=== PATIENT | female | born 1965 | race Caucasian/White ===

== ENCOUNTER 2018-07-30 02:00 | Outpatient (CLI) | payer MEDICARE, MEDICAID, SELFPAY ==
[2018-07-30 13:19] LABS: Anion Gap 3.4 mmol/L (3-11); BUN 12 mg/dL (7-18); CO2 34.6 mmol/L (21.0-32.0); CREATININE 0.63 mg/dL (0.55-1.02); Calcium 8.8 mg/dL (8.5-10.1); Chloride 99 mmol/L (98-107); Glucose 59 mg/dL (70-100); Potassium 4.7 mmol/L (3.5-5.1); Sodium 137 mmol/L (136-145); TSH 1.16 uIU/mL (0.358-3.74)
== END 2018-07-30 02:20 ==
PROVIDERS: PCP Emergency Medicine; Visit Provider Emergency Medicine
DX: I10 Essential (primary) hypertension (principal)
CPT/HCPCS: 36415; 80048; 84443

== ENCOUNTER → 2018-09-02 11:06 | Outpatient (BNVA) | payer MEDICARE, MEDICAID, SELFPAY | PROVIDERS: PCP Emergency Medicine; Visit Provider Psychiatry & Neurology Neurology | DX: G35 Multiple sclerosis (principal); R55 Syncope and collapse; M79.602 Pain in left arm; I10 Essential (primary) hypertension | CPT/HCPCS: 99214; 93005; 93010 ==

== ENCOUNTER → 2018-09-24 10:04 | Outpatient (BNVA) | payer MEDICARE, MEDICAID, SELFPAY | PROVIDERS: PCP Emergency Medicine; Visit Provider Psychiatry & Neurology Neurology | DX: R69 Illness, unspecified (principal) | CPT/HCPCS: 99213 ==

== ENCOUNTER → 2018-09-24 11:23 | Outpatient (BNVA) | payer MEDICARE, MEDICAID, SELFPAY | PROVIDERS: PCP Emergency Medicine; Visit Provider Nurse Practitioner Gerontology | DX: G35 Multiple sclerosis (principal); G56.02 Carpal tunnel syndrome, left upper limb; I10 Essential (primary) hypertension; N39.41 Urge incontinence | CPT/HCPCS: 95908; 99213 ==

== ENCOUNTER → 2018-09-26 12:50 | Outpatient (BNVA) | payer MEDICARE, MEDICAID, SELFPAY | PROVIDERS: PCP Emergency Medicine; Referring Provider Emergency Medicine; Visit Provider Orthopaedic Surgery | DX: R69 Illness, unspecified (principal) ==

== ENCOUNTER → 2018-10-01 09:44 | Outpatient (BNVA) | payer MEDICARE, MEDICAID, SELFPAY | PROVIDERS: PCP Emergency Medicine; Referring Provider Emergency Medicine; Visit Provider Orthopaedic Surgery | DX: G56.02 Carpal tunnel syndrome, left upper limb (principal) | CPT/HCPCS: 99211; 99213 ==

== ENCOUNTER 2018-10-29 13:01 | Outpatient (CLI) | payer MEDICARE, MEDICAID, SELFPAY | END 2018-10-29 13:21 | PROVIDERS: PCP Emergency Medicine; Visit Provider Urology | DX: N31.9 Neuromuscular dysfunction of bladder, unspecified (principal); G35 Multiple sclerosis | CPT/HCPCS: 99213 ==

== ENCOUNTER → 2019-03-25 10:13 | Outpatient (BNVA) | payer MEDICARE, MEDICAID, SELFPAY | PROVIDERS: PCP Emergency Medicine; Visit Provider Psychiatry & Neurology Neurology | DX: G35 Multiple sclerosis (principal); N31.9 Neuromuscular dysfunction of bladder, unspecified; R41.3 Other amnesia | CPT/HCPCS: 99214 ==

== ENCOUNTER → 2019-05-28 13:21 | Outpatient (BNVA) | payer MEDICARE, SELFPAY | PROVIDERS: PCP Emergency Medicine; Visit Provider Psychiatry & Neurology Neurology | DX: G35 Multiple sclerosis (principal); N31.9 Neuromuscular dysfunction of bladder, unspecified; R41.3 Other amnesia; I10 Essential (primary) hypertension | CPT/HCPCS: 99214 ==

== ENCOUNTER 2019-08-15 14:08 | Outpatient (CLI) | payer MEDICARE, SELFPAY ==
[2019-08-15 15:43] LABS: Anion Gap 9.7 mmol/L (3-11); BUN 13 mg/dL (7-18); CO2 30.3 mmol/L (21.0-32.0); CREATININE 0.54 mg/dL (0.55-1.02); Calcium 9.1 mg/dL (8.5-10.1); Chloride 96 mmol/L (98-107); Glucose 88 mg/dL (70-100); Potassium 3.9 mmol/L (3.5-5.1); Sodium 136 mmol/L (136-145)
== END 2019-08-15 14:28 ==
PROVIDERS: PCP Emergency Medicine; Visit Provider Urology
DX: N31.9 Neuromuscular dysfunction of bladder, unspecified (principal)
CPT/HCPCS: 36415; 80048

== ENCOUNTER → 2019-10-24 09:25 | Outpatient (BNVA) | payer MEDICARE, MEDICAID, SELFPAY | PROVIDERS: PCP Emergency Medicine; Referring Provider Emergency Medicine; Visit Provider Urology | DX: R35.1 Nocturia (principal) | CPT/HCPCS: 99213 ==

== ENCOUNTER 2019-11-18 15:18 | Outpatient (REF) | payer MEDICARE, SELFPAY ==
--- NOTE | 2019-11-18 14:50 | PAPFT_PTH ---
PATIENT: Mina Coker LOC: [facility] U#:[id number] AGE/SX: 54/F ROOM: RE11/18/[address]: Gabo Goncalves DO : 1965 BED: DIS: 11/18/2019 SPEC #: [id number] RECD: 11/19/19 12:53 STATUS: ALFIE REWilda #: [id number] CINDY: 11/18/19 14:[address]: Gabo Goncalves DEPT: [facility] Cytology RECD BY: Malina Badillo Tissues: 1 - CX/ENDOCX FOR PAP SMEARS Procedures: PAP THIN PREP/UVM Screening Comments: [id number] (CHLAMYDIA/GC)
[2019-11-20 14:13] LABS: Chlamydia Result Negative (Negative); GC Result Negative (Negative)
== END 2019-11-18 15:38 ==
LOC: LBN 15:18
PROVIDERS: PCP Emergency Medicine; Visit Provider Emergency Medicine
DX: Z11.3 Encounter for screening for infections with a predominantly sexual mode of transmission (principal); Z12.4 Encounter for screening for malignant neoplasm of cervix
CPT/HCPCS: 87491; 87591; 88142

== ENCOUNTER → 2019-11-25 10:41 | Outpatient (BNVA) | payer MEDICARE, SELFPAY | PROVIDERS: PCP Emergency Medicine; Referring Provider Emergency Medicine; Visit Provider Psychiatry & Neurology Neurology | DX: R69 Illness, unspecified (principal) | CPT/HCPCS: 99214 ==

== ENCOUNTER 2019-11-25 11:38 | Outpatient (CLI) | payer MEDICARE, SELFPAY ==
[2019-11-25 12:46] LABS: Anion Gap 4.4 mmol/L (3-11); BUN 12 mg/dL (7-18); CO2 35.6 mmol/L (21.0-32.0); CREATININE 0.57 mg/dL (0.55-1.02); Chloride 100 mmol/L (98-107); Glucose 95 mg/dL (74-106); Potassium 4.2 mmol/L (3.5-5.1); Sodium 140 mmol/L (136-145)
[2019-11-25 13:03] LABS: Calculated LDL 118 mg/dL; Cholesterol 206 mg/dL (<200); HDL Cholesterol 58 mg/dL (40-60); Triglyceride 153 mg/dL (<150)
[2019-11-25 13:15] LABS: Vitamin B12 976 pg/mL (193-986)
== END 2019-11-25 11:58 ==
PROVIDERS: Psychiatry & Neurology Neurology; PCP Emergency Medicine; Visit Provider Urology
DX: G35 Multiple sclerosis (principal); R53.83 Other fatigue; R41.3 Other amnesia; N31.9 Neuromuscular dysfunction of bladder, unspecified; R35.1 Nocturia
CPT/HCPCS: 36415; 80048; 80061; 99214; 82607

== ENCOUNTER 2019-12-15 11:54 | Outpatient (CLI) | payer MEDICARE, SELFPAY ==
--- NOTE | 2019-12-15 11:26 | DI.RAD_ITS ---
EXAM: XR ANKLE RT COMPLETE INDICATION: eval R ankle/subtalar swelling, deformity. COMPARISON: No exams were available for comparison TECHNIQUE: 2D digital imaging was performed. FINDINGS: The ankle appears intact. There is a flatfoot deformity. The anterior talus and calcaneus are not w ell evaluated on this examination. There is question of deformity and possible fracture involving th jannie bones. A CT scan of the hindfoot is recommended for further evaluation. There is soft tissue sw elling about the hindfoot and ankle. No radiopaque foreign bodies are present.
== END 2019-12-15 12:14 ==
PROVIDERS: PCP Emergency Medicine; Referring Provider Emergency Medicine; Visit Provider Student in an Organized Health Care Education/Training Program
DX: M25.571 Pain in right ankle and joints of right foot (principal); M79.671 Pain in right foot; M21.41 Flat foot [pes planus] (acquired), right foot; M79.89 Other specified soft tissue disorders; M25.474 Effusion, right foot; I10 Essential (primary) hypertension
CPT/HCPCS: 20605; 99213; L4361; 73610; J1040

== ENCOUNTER 2019-12-16 01:59 | Outpatient (CLI) | payer MEDICARE, SELFPAY ==
--- NOTE | 2019-12-16 11:59 | DI.MAMMO_ITS ---
EXAM: MG MAMMO SCREENING CLINICAL HISTORY: screening Z12.39. TECHNIQUE: Bilateral full field digital CC and MLO mammographic images were obtained with 3D tomosyn thesis and utilizing computer aided detection (CAD). COMPARISON: Available for comparison. FINDINGS: Masses/Architectural Distortion: None seen. Microcalcifications: No suspicious pleomorphic-type are seen. Skin Thickening/Nipple Retraction: None. IMPRESSION: 1. No significant interval change with no specific features of malignancy noted. 2. Unless there is more urgent need, screening mammography is recommended, as per [employer] guidelines. ACR BI-RAD Category- 1 Negative Breast Density - Category C - Heterogeneously dense The mammogram demonstrates the patient's breast tissue is dense. Dense breast tissue is very common a nd is not abnormal but dense breast tissue can make it harder to find cancer on a mammogram. Also, de nse breast tissue may increase their breast cancer risk. This information about the result of the [facility] mogram report was provided to the patient to raise their awareness. Use this report when you speak wi th the patient about their risks for breast cancer, which includes their family history. At that time , you may recommend for more screening tests (Ultrasound or MRI) as they might be useful based on the ir risk. A negative radiographic report should not delay biopsy if a dominant or clinically suspicious mass is present. Up to ten percent of cancers are not identified on mammography. A negative report may reinforce clinical impression. Adenosis and dense breasts may obscure an underlying neoplasm. False positive reports average 6 to 10%. Patient will receive a letter notifying them of these results.
== END 2019-12-16 02:19 ==
PROVIDERS: PCP Emergency Medicine; Visit Provider Emergency Medicine
DX: Z12.31 Encounter for screening mammogram for malignant neoplasm of breast (principal)
CPT/HCPCS: 77063; 77067

== ENCOUNTER → 2020-01-02 10:34 | Outpatient (BNVA) | payer MEDICARE, SELFPAY | PROVIDERS: PCP Emergency Medicine; Referring Provider Emergency Medicine; Visit Provider Physical Therapy Assistant | DX: Z12.11 Encounter for screening for malignant neoplasm of colon (principal) ==

== ENCOUNTER 2020-01-19 11:53 | Day surgery (SDC) | payer MEDICARE, SELFPAY ==
--- NOTE | 2020-01-19 06:58 | W.COLOREPORT ---
Date of service: 01/19/20 Time of Service: 13:39 Colonoscopy Report Date of procedure: 01/19/20 Pre-op diagnosis general: Colon Cancer Screening Post-op diagnosis procedure note: same Procedure: Colonoscopy Surgeon: Debbie Guerra Anesthesia proc note operative: other (General/ ASA 2/Penny Booker, HECTOR) Estimated blood loss (mL): 0 Pathology: none sent Complications: None Disposition: same day Indications: 54 y/o female with history of multiple sclerosis, HTN and asthma presents for her first colonoscopy screening pre-op. She denies a family history of colon cancer. She denies any changes in bowel habits stating she has frequent constipation. Denies bloody or black tarry stools, abdominal pain, diarrhea. She denies constitutional symptoms.She uses marijuana daily to help control her spasticity. Risks, benefits and complications have been reviewed. Complications include but are not limited to bleeding, pain, perforation, missed small lesion/polyp, sore throat, aspiration and adverse reaction to the medications. Questions were entertained and answered to their satisfaction and they wished to proceed. No guarantees were given or implied. Prep: Miralax/Dulcolax Procedure Start Time: 13:39 Procedure End Time: 14:03 Retraction Time: 10 minutes Findings: Tortuous colon. No polyps or diverticula Procedure Description: After informed consent was obtained the patient was taken to the procedure room and placed in a left decubitous position. Monitors were applied and a time out was done. The patients name, date of , procedure, allergies to medications and metal in their body was reviewed. The patient was then sedated. Once sedated and comfortable a rectal exam was done. External exam was normal. Internal exam revealed a normal sphincter tone and no palpable masses. The scope was then introduced and retro-flexed. No internal hemorrhoids, Masses or polyps were identified on retro-flexion. The scope was then advanced to the cecum with some difficulty. The colon was tortuous. The TI and appendiceal orifice were identified. The prep was adequate. The scope was then slowly retracted over 10 minutes back into the rectum. There were no polyps and no diverticula. The scope was removed and the patient was woken up and taken back to Same day surgery in stable condition. The patient tolerated the procedure well and there were no immediate complications. Follow up: The patient should follow up in 10 years unless they develop changes in bowel habits or other new gastrointestinal complaints.
--- NOTE | 2020-01-19 07:00 | W.PM.DSUDISC ---
Discharge Plan Disposition Patient Disposition: HOME Condition: Good Discharge Details Reason For Visit: SCREENING Attending Provider: Debbie Guerra Primary Care Provider: Gabo Goncalves Home Meds and New Rx's Prescriptions: Continued triamcinolone acetonide [Nasacort] 55 mcg aerosol,spray 1 spray JAMEL BID RF: 0 melatonin 3 mg tablet 6 mg PO HS RF: 0 turmeric root extract 500 mg capsule 500 mg PO DAILY RF: 0 citalopram 20 mg tablet 20 mg PO DAILY Qty: 90 RF: 4 desmopressin 0.2 mg tablet 0.6 mg PO HS Qty: 270 RF: 3 diphenhydramine-acetaminophen [Tylenol PM Extra Strength] 1 EACH tablet 1 tab PO HS RF: 0 Timoptic Ocudose (PF) 1 EACH dropperette 1 drp Ophthalmic DAILY RF: 0 B Complex Plus Vitamin C 1 EACH capsule 1 cap PO DAILY RF: 0 Probiotic and Acidophilus 1 EACH capsule 1 cap PO DAILY RF: 0 pedi multivit 17-iron fumarate 1 EACH tablet,chewable 2 tab PO DAILY RF: 0 calcium carbonate-vitamin D3 1 EACH tablet 1 ea PO DAILY RF: 0 glucosamine sulf-chondroitinSA 1 EACH capsule 1 ea PO BID RF: 0 cholecalciferol (vitamin D3) 5,000 UNIT tablet 5,000 unit PO DAILY RF: 0 baclofen 20 mg tablet 40 mg PO TID Qty: 540 RF: 3 amlodipine 5 mg tablet 5 mg PO BID Qty: 180 RF: 3 omeprazole 20 mg capsule,delayed release(DR/EC) 20 mg PO DAILY Qty: 90 RF: 3 lisinopril 20 mg tablet 20 mg PO DAILY Qty: 90 RF: 3 modafinil [Provigil] 200 mg tablet 200 mg PO BID RF: 0 dalfampridine [Ampyra] 10 mg tablet extended release 12 hr 10 mg PO BID RF: 0 Discontinued polyethylene glycol 3350 17 gram/dose powder 238 g PO ONCE Qty: 238 RF: 0 bisacodyl [Dulcolax (bisacodyl)] 5 mg tablet,delayed release (DR/EC) 5 mg PO ONCE Qty: 4 RF: 0 Discharge Instructions Additional Instructions: Findings: Normal colon Follow up: 10 years Please call if you develop: fevers >101.5 Nausea or Vomiting Abdominal pain that is not transient DAY SURGERY UNIT POST ENDOSCOPY INSTRUCTIONS 1. Because there will be medication in your system for the next 24 hours, you may feel a little sleepy. Your coordination will be affected. Therefore: a. Do not drive or operate dangerous equipment for 24 hours. b. Do not drink alcohol beverages for 24 hours (not even beer). c. Plan to go home and rest for the day. 2. Generally there are no restrictions on your activity after a day or so has gone by, but you may feel a bit fatigued for a few days. 3 After you arrive home you may have a light meal and return to a normal diet as you can tolerate it without feeling sick to your stomach. 4. After surgery, you may feel pain or discomfort. This should be only transient, but if it persists please contact your doctor. 5. If there are any questions regarding the findings of your procedure, please feel free to contact your doctor. 6. If you are unable to contact your doctor with a problem, contact the hospital at [phone]. 7. Continue all your regular medications unless directed otherwise. I understand the above instructions and have no questions. Signature of Patient or Responsible Adult Escort Date/Time Name of Responsible Adult Escort Signature of Nurse Date/Time Activity:: Activity as Tolerated Diet:: As Tolerated Discharge Orders Discharge Orders: Discharge Order (Routine); Ordered 01/19/20 Ordered By: Debbie Guerra
[2020-01-19 12:27] VITALS: BP 154/89; PULSE 75; RESP 16; TEMP 36.6; O2SAT 97
[2020-01-19] MEDS: Lactated Ringers 1,000 ML 80 ML IV (12:59)
[2020-01-19] MEDS: Ondansetron 4 MG/2 ML VIAL IVP (14:32)
[2020-01-19 14:51] VITALS: BP 126/74; PULSE 76; RESP 16; TEMP 36.9; O2SAT 95
== END 2020-01-19 15:15 | disposition home or self-care (01) ==
LOC: SUR 11:53
PROVIDERS: PCP Emergency Medicine; Visit Provider Surgery
PROC: 0DJD8ZZ Inspection of Lower Intestinal Tract, Via Natural or Artificial Opening Endoscopic (ICD-10-PCS; CPT 45378; principal; 2020-01-19 13:15)
DX: Z12.11 Encounter for screening for malignant neoplasm of colon (principal); K63.89 Other specified diseases of intestine; I10 Essential (primary) hypertension
CPT/HCPCS: G0121; 81025; J2405; J2704

== ENCOUNTER → 2020-01-26 10:10 | Outpatient (BNVA) | payer MEDICARE, SELFPAY | PROVIDERS: PCP Emergency Medicine; Referring Provider Emergency Medicine; Visit Provider Student in an Organized Health Care Education/Training Program | DX: M79.89 Other specified soft tissue disorders (principal); M25.571 Pain in right ankle and joints of right foot; M21.41 Flat foot [pes planus] (acquired), right foot | CPT/HCPCS: 99212 ==

== ENCOUNTER → 2020-04-23 09:32 | Outpatient (BNVA) | payer MEDICARE, SELFPAY | PROVIDERS: PCP Emergency Medicine; Referring Provider Emergency Medicine; Visit Provider Urology | DX: R35.1 Nocturia (principal); N31.9 Neuromuscular dysfunction of bladder, unspecified | CPT/HCPCS: 99213 ==

== ENCOUNTER 2020-04-23 18:09 | Emergency (ER) | payer MEDICARE, SELFPAY ==
[2020-04-23 18:13] VITALS: BP 134/98; PULSE 84; RESP 16; TEMP 36.5; O2SAT 98
--- NOTE | 2020-04-23 18:15 | DI.RAD_ITS ---
EXAM: XR FOOT RT COMPLETE CLINICAL HISTORY: pain and swelling. TECHNIQUE: 2D digital imaging was performed. COMPARISON: CR RIGHT ANKLE COMPLETE from 07/31/2017 CR XR ANKLE RT COMPLETE from 12/15/2019 FINDINGS: BONES: No acute fracture is present. No bony destructive lesion is seen. There is chronic deformity of the talus. JOINTS: No dislocation present. SOFT TISSUE: There is soft tissue swelling over the dorsum of the foot. IMPRESSION: Soft tissue swelling. No acute fracture.. DATA REPOSITORY: RADIATION DOSE DELIVERED:
--- NOTE | 2020-04-23 18:20 | W.ED.GENAD ---
Discharge Plan Disposition Patient Disposition: HOME Condition: Stable Discharge Details Chief Complaint: Orthopedic Clinical Impression: Right foot strain Primary Care Provider: Gabo Goncalves ED Provider: Partha Pollock Home Meds and New Rx's Prescriptions: Continued triamcinolone acetonide [Nasacort] 55 mcg aerosol,spray 1 spray JAMEL BID RF: 0 melatonin 3 mg tablet 6 mg PO HS RF: 0 turmeric root extract 500 mg capsule 500 mg PO DAILY RF: 0 citalopram 20 mg tablet 20 mg PO DAILY Qty: 90 RF: 4 desmopressin 0.2 mg tablet 0.6 mg PO HS Qty: 270 RF: 3 diphenhydramine-acetaminophen [Tylenol PM Extra Strength] 1 EACH tablet 1 tab PO HS RF: 0 Timoptic Ocudose (PF) 1 EACH dropperette 1 drp Ophthalmic DAILY RF: 0 B Complex Plus Vitamin C 1 EACH capsule 1 cap PO DAILY RF: 0 Probiotic and Acidophilus 1 EACH capsule 1 cap PO DAILY RF: 0 pedi multivit 17-iron fumarate 1 EACH tablet,chewable 2 tab PO DAILY RF: 0 calcium carbonate-vitamin D3 1 EACH tablet 1 ea PO DAILY RF: 0 glucosamine sulf-chondroitinSA 1 EACH capsule 1 ea PO BID RF: 0 cholecalciferol (vitamin D3) 5,000 UNIT tablet 5,000 unit PO DAILY RF: 0 amlodipine 5 mg tablet 5 mg PO BID Qty: 180 RF: 3 omeprazole 20 mg capsule,delayed release(DR/EC) 20 mg PO DAILY Qty: 90 RF: 3 lisinopril 20 mg tablet 20 mg PO DAILY Qty: 90 RF: 3 modafinil [Provigil] 200 mg tablet 200 mg PO BID Qty: 180 RF: 3 baclofen 20 mg tablet 40 mg PO TID Qty: 540 RF: 3 dalfampridine [Ampyra] 10 mg tablet extended release 12 hr 10 mg PO BID RF: 0 Discharge Instructions Additional Instructions: you can take ibuprofen and tylenol every 6 hours for pain as needed if pain continues in a week follow up with your primary care provider return to the emergency department if you have severe worsening pain or if your leg becomes swollen Medical Decision Making 54 yo female with hx of MS who was doing PT in the pool today and afterwards had right foot pain, doesn't remember injuring it or falling it. Denies leg swelling, calf pain. Has pain with some bruising to the dorsal surface of the right mid foot. Normal senation and can move all toes fully and full rom of the ankle with no calf tenderness. Suspect strain vs sprain of foot but could be stress fx, will obtain xray. No findings to suggest dvt or achilles tendon injury xray negative suspect strain, will d/c and have her fu with pcp. She still has mild bruising no erythema or crepitus Differential Diagnosis Differential Diagnosis: sprain, stress fracture, contusion Imaging Data Radiologic Study: Attestation: I personally reviewed and interpreted this imaging study as follows: Imaging: X-Ray Radiologist's impression: IMPRESSION: 1. Right foot soft tissue swelling. 2. No acute fracture or dislocation. HPI General Mode of arrival: wheelchair. Date/Time Provider Initiated Documentation: 04/23/20 18:09. Limitations to Documentation: no limitations. Information obtained by: patient. History of Present Illness 54 year old F presents to the emergency department with the chief complaint of right foot pain, described as moderate, and it has been constant. Rest improves symptom(s), Movement worsens symptoms . Patient notes no other symptoms.. Patient did receive the following treatments prior to arrival, none Related Data Home Medications Medication Instructions Recorded Confirmed B Complex Plus Vitamin C 1 cap PO DAILY 02/04/13 04/23/20 Probiotic and Acidophilus 1 cap PO DAILY 02/04/13 04/23/20 Timoptic Ocudose (PF) 1 drp OPHTHALMIC DAILY drp 02/04/13 04/23/20 diphenhydramine-acetaminophen 1 tab PO HS 02/04/13 04/23/20 [Tylenol PM Extra Strength] pedi multivit 17-iron fumarate 2 tab PO DAILY tab.chew 02/04/13 04/23/20 calcium carbonate-vitamin D3 1 ea PO DAILY 01/26/15 04/23/20 cholecalciferol (vitamin D3) 5,000 unit PO DAILY 01/26/15 04/23/20 glucosamine sulf-chondroitinSA 1 ea PO BID 01/26/15 04/23/20 triamcinolone acetonide 55 mcg 1 spray JAMEL BID ml 07/22/18 04/23/20 nasal spray aerosol melatonin 3 mg tablet 6 mg PO HS tab 03/25/19 04/23/20 turmeric root extract 500 mg 500 mg PO DAILY 05/07/19 04/23/20 capsule amlodipine 5 mg tablet 5 mg PO BID #180 tab 10/21/19 04/23/20 desmopressin 0.2 mg tablet 0.6 mg PO HS #270 tab 10/24/19 04/23/20 omeprazole 20 mg capsule,delayed 20 mg PO DAILY #90 cap 11/04/19 04/23/20 release citalopram 20 mg tablet 20 mg PO DAILY #90 tab 11/18/19 01/26/20 lisinopril 20 mg tablet 20 mg PO DAILY #90 tab 12/23/19 04/23/20 dalfampridine [Ampyra] 10 mg PO BID 01/19/20 04/23/20 modafinil 200 mg tablet 200 mg PO BID #180 tab 03/17/20 04/23/20 baclofen 20 mg tablet 40 mg PO TID #540 tab 04/06/20 04/23/20 Previous Rx's Medication Instructions Recorded amlodipine 5 mg tablet 5 mg PO BID #180 tab 10/21/19 desmopressin 0.2 mg tablet 0.6 mg PO HS #270 tab 10/24/19 omeprazole 20 mg capsule,delayed 20 mg PO DAILY #90 cap 11/04/19 release citalopram 20 mg tablet 20 mg PO DAILY #90 tab 11/18/19 lisinopril 20 mg tablet 20 mg PO DAILY #90 tab 12/23/19 modafinil 200 mg tablet 200 mg PO BID #180 tab 03/17/20 baclofen 20 mg tablet 40 mg PO TID #540 tab 04/06/20 Allergies Allergy/AdvReac Type Severity Reaction Status Date / Time Sulfa (Sulfonamide Allergy Intermediate SKIN RASH Verified 04/23/20 18:18 Antibiotics) Penicillins Allergy Unknown RASH Verified 04/23/20 18:18 codeine AdvReac Unknown NAUSEA Verified 04/23/20 18:18 General Stated Complaint: Orthopedic LAI: 4 Review of Systems All systems reviewed & are unremarkable except as noted in HPI and below Constitutional Constitutional: Denies chills, Denies fever(s) and Denies weakness Cardiovascular Cardiovascular: Denies chest pain and Denies dyspnea Respiratory Respiratory: Denies cough and Denies dyspnea Gastrointestinal Gastrointestinal: Denies abdominal pain, Denies nausea and Denies vomiting Integumentary/Breasts Skin/Breast: Denies rash Neurologic Neurologic: Denies weakness PFSH Social History Smoking/Tobacco Use Status: Former Tobacco Use Quit Date: 11/12/07 Second Hand Exposure: Yes Alcohol Intake: current Alcohol Intake frequency: a few times a month Alcohol type: wine Drug use: Daily Substance use type: marijuana Caregiver/Support person: No Household members: spouse Housing: house Number of Children: 1 Communication Needs: None Do you need help understanding health information?: Never 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; 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 Pets and animals: Yes Pets and animals: cat(s) Do you think of yourself as: straight/heterosexual Current gender identity: female What is your relationship status?: How often do you talk on the phone with friends or family?: never How often do you get together with friends or relatives?: decline to answer Do you belong to any clubs or organized social groups?: no Panel score (0-1 are the most socially isolated patients): 1 What type of physical activity do you participate in: other Details: stationary bike Duration: 15-30 minutes/day Frequency: 3-4 times per week Veda/Hinduism: None Special veda needs: No Seatbelt use: always Helmet use: Yes Helmet use: sometimes Drive intox or ride w/intox school bus driver/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 assistant: No Do you feel safe at home: Yes Do you feel safe in your relationship?: Yes Exam Const General: no acute distress Orientation: alert HENCT Head: normal to inspection Ears: external ears normal General nose exam: external nose normal Mouth: moist mucous membranes Eyes General: appearance normal, both eyes and all related structures Neck Neck: normal visual inspection Resp Effort & Inspection: normal respiratory effort and able to speak in complete sentences Cardio Rate: regular rate Skin General skin exam: no rashes or lesions noted Neuro General: patient alert and patient oriented x3 Extrem General: capillary refill normal Psych Mental Status: mental status grossly normal Course Vital Signs Vital signs: Vital Signs Temperature 36.5 C 04/23/20 18:13 Pulse 84 04/23/20 18:13 Respiratory Rate 16 04/23/20 18:13 Blood Pressure 134/98 H 04/23/20 18:13 Pulse Oximetry 98 04/23/20 18:13 Temperature 36.5 C 04/23/20 18:13 Temperature Source Tympanic 04/23/20 18:13 Pulse 84 04/23/20 18:13 Respiratory Rate 16 04/23/20 18:13 Respiratory Effort Non-Labored 04/23/20 18:15 Blood Pressure 134/98 H 04/23/20 18:13 Blood Pressure Position Sitting 04/23/20 18:13 Pulse Oximetry 98 04/23/20 18:13 Oxygen Delivery Method Room Air 04/23/20 18:13 Oxygen Flow Rate 0 04/23/20 18:13 Pain Level 7 04/23/20 18:13
--- NOTE | 2020-04-23 18:59 | DI.VRAD_ITS ---
PROCEDURE INFORMATION: Exam: XR Right Foot Complete Exam date and time: 04/23/2020 6:31 PM Age: 54 years old Clinical indication: Other: Pain swelling dorsal foot TECHNIQUE: Imaging protocol: XR Right foot. Views: 3 or more views. COMPARISON: CR XR ANKLE RT COMPLETE 12/15/2019 11:26 AM FINDINGS: Bones/joints: The alignment of the joints is anatomic and the joint spaces are maintained. There is no evidence of acute fracture. There is no periosteal reaction or bony destructive lesion to suggest osteomyelitis at this time. Soft tissues: No radiopaque foreign bodies are identified. There is soft tissue swelling along the dorsum of the foot. IMPRESSION: 1. Right foot soft tissue swelling. 2. No acute fracture or dislocation. Dictated and Authenticated by: Kaushal Bonds MD. Ordering:JOSE ALFREDO Chavis MD
== END 2020-04-23 19:15 | disposition home or self-care (01) ==
PROVIDERS: Emergency Provider Emergency Medicine; PCP Emergency Medicine
DX: S96.811A Strain of other specified muscles and tendons at ankle and foot level, right foot, initial encounter (principal); W50.0XXA Accidental hit or strike by another person, initial encounter; G35 Multiple sclerosis; R35.1 Nocturia; N31.9 Neuromuscular dysfunction of bladder, unspecified
CPT/HCPCS: 99213; 99283; 73630

== ENCOUNTER → 2020-05-17 13:11 | Outpatient (BNVA) | payer MEDICARE, SELFPAY | PROVIDERS: PCP Emergency Medicine; Referring Provider Emergency Medicine; Visit Provider Student in an Organized Health Care Education/Training Program | DX: S96.911A Strain of unspecified muscle and tendon at ankle and foot level, right foot, initial encounter (principal); X58.XXXA Exposure to other specified factors, initial encounter; G35 Multiple sclerosis; M21.41 Flat foot [pes planus] (acquired), right foot; I10 Essential (primary) hypertension | CPT/HCPCS: 99213 ==

== ENCOUNTER → 2020-05-25 10:43 | Outpatient (BNVA) | payer MEDICARE, SELFPAY | PROVIDERS: PCP Emergency Medicine; Referring Provider Emergency Medicine; Visit Provider Psychiatry & Neurology Neurology | DX: G35 Multiple sclerosis (principal); N31.9 Neuromuscular dysfunction of bladder, unspecified; R41.3 Other amnesia; R25.2 Cramp and spasm; R53.83 Other fatigue | CPT/HCPCS: 99214 ==

== ENCOUNTER 2020-07-28 12:58 | Outpatient (REF) | payer MEDICARE, MEDICAID, SELFPAY ==
[2020-07-28 13:53] LABS: Anion Gap 5.5 mmol/L (3-11); BUN 14 mg/dL (7-18); CO2 32.5 mmol/L (21.0-32.0); CREATININE 0.55 mg/dL (0.55-1.02); Chloride 89 mmol/L (98-107); Glucose 90 mg/dL (74-106); Potassium 3.7 mmol/L (3.5-5.1); Sodium 127 mmol/L (136-145)
== END 2020-07-28 13:18 ==
LOC: LBN 12:58
PROVIDERS: PCP Emergency Medicine; Visit Provider Emergency Medicine
DX: I10 Essential (primary) hypertension (principal)
CPT/HCPCS: 80048

== ENCOUNTER 2020-08-04 03:16 | Outpatient (CLI) | payer MEDICARE, SELFPAY ==
[2020-08-04 12:58] LABS: Anion Gap 4.6 mmol/L (3-11); BUN 17 mg/dL (7-18); CO2 32.4 mmol/L (21.0-32.0); CREATININE 0.58 mg/dL (0.55-1.02); Chloride 98 mmol/L (98-107); Glucose 79 mg/dL (74-106); Potassium 4.2 mmol/L (3.5-5.1); Sodium 135 mmol/L (136-145)
== END 2020-08-04 03:36 ==
PROVIDERS: PCP Emergency Medicine; Visit Provider Emergency Medicine
DX: I10 Essential (primary) hypertension (principal)
CPT/HCPCS: 36415; 80048

== ENCOUNTER 2020-09-10 01:49 | Outpatient (CLI) | payer MEDICARE, SELFPAY ==
[2020-09-10 13:03] LABS: ALT 24 U/L (14-59); AST 19 U/L (15-37); Albumin 4.6 g/dL (3.4-5.0); Alkaline Phosphatase 83 U/L (46-116); BUN 16 mg/dL (7-18); Bilirubin, Total 0.3 mg/dL (0.2-1.0); Calcium 9.4 mg/dL (8.5-10.1); Chloride 93 mmol/L (98-107); Glucose 92 mg/dL (74-106); Potassium 4.9 mmol/L (3.5-5.1); Sodium 131 mmol/L (136-145); Total Protein 7.3 g/dL (6.4-8.2)
== END 2020-09-10 02:09 ==
PROVIDERS: Urology; PCP Emergency Medicine; Visit Provider Emergency Medicine
DX: R35.1 Nocturia (principal); N31.9 Neuromuscular dysfunction of bladder, unspecified
CPT/HCPCS: 36415; 80048; 80053

== ENCOUNTER 2020-09-14 03:57 | Outpatient (CLI) | payer MEDICARE, SELFPAY ==
[2020-09-14 10:46] LABS: Anion Gap 2.5 mmol/L (3-11); BUN 17 mg/dL (7-18); CO2 32.5 mmol/L (21.0-32.0); CREATININE 0.56 mg/dL (0.55-1.02); Calcium 9.3 mg/dL (8.5-10.1); Chloride 97 mmol/L (98-107); Glucose 83 mg/dL (74-106); Sodium 132 mmol/L (136-145)
== END 2020-09-14 04:17 ==
PROVIDERS: PCP Emergency Medicine; Visit Provider Urology
DX: I10 Essential (primary) hypertension (principal)
CPT/HCPCS: 36415; 80048

== ENCOUNTER 2020-09-29 01:39 | Outpatient (CLI) | payer MEDICARE, SELFPAY ==
[2020-09-29 10:57] LABS: Anion Gap 9.9 mmol/L (3-11); BUN 13 mg/dL (7-18); CO2 30.1 mmol/L (21.0-32.0); Calcium 9.5 mg/dL (8.5-10.1); Chloride 93 mmol/L (98-107); Glucose 79 mg/dL (74-106); Potassium 4.8 mmol/L (3.5-5.1); Sodium 133 mmol/L (136-145)
== END 2020-09-29 01:59 ==
PROVIDERS: PCP Emergency Medicine; Visit Provider Emergency Medicine
DX: I10 Essential (primary) hypertension (principal)
CPT/HCPCS: 36415; 80048

== ENCOUNTER → 2020-10-19 09:31 | Outpatient (BNVA) | payer MEDICARE, SELFPAY | PROVIDERS: PCP Emergency Medicine; Referring Provider Emergency Medicine; Visit Provider Nurse Practitioner Gerontology | DX: R35.1 Nocturia (principal); N31.9 Neuromuscular dysfunction of bladder, unspecified; E87.1 Hypo-osmolality and hyponatremia | CPT/HCPCS: 99213 ==

== ENCOUNTER 2020-10-19 10:16 | Outpatient (REF) | payer MEDICARE, MEDICAID, SELFPAY ==
[2020-10-19 10:43] LABS: Anion Gap 6.8 mmol/L (3-11); BUN 18 mg/dL (7-18); CO2 28.2 mmol/L (21.0-32.0); CREATININE 0.56 mg/dL (0.55-1.02); Calcium 8.9 mg/dL (8.5-10.1); Chloride 97 mmol/L (98-107); Glucose 98 mg/dL (74-106); Potassium 4.1 mmol/L (3.5-5.1); Sodium 132 mmol/L (136-145)
== END 2020-10-19 10:36 ==
LOC: LBN 10:16
PROVIDERS: PCP Emergency Medicine; Visit Provider Nurse Practitioner Gerontology
DX: E87.1 Hypo-osmolality and hyponatremia (principal)
CPT/HCPCS: 80048

== ENCOUNTER 2020-10-25 03:38 | Outpatient (CLI) | payer MEDICARE, SELFPAY ==
[2020-10-25 12:32] LABS: Anion Gap 5.6 mmol/L (3-11); BUN 17 mg/dL (7-18); CO2 33.4 mmol/L (21.0-32.0); CREATININE 0.64 mg/dL (0.55-1.02); Calcium 9.2 mg/dL (8.5-10.1); Chloride 98 mmol/L (98-107); Glucose 77 mg/dL (74-106); Potassium 5.2 mmol/L (3.5-5.1); Sodium 137 mmol/L (136-145)
== END 2020-10-25 03:58 ==
PROVIDERS: PCP Emergency Medicine; Visit Provider Emergency Medicine
DX: I10 Essential (primary) hypertension (principal)
CPT/HCPCS: 36415; 80048

== ENCOUNTER → 2020-11-23 07:56 | Outpatient (BNVA) | payer MEDICARE, SELFPAY | PROVIDERS: PCP Emergency Medicine; Referring Provider Emergency Medicine; Visit Provider Psychiatry & Neurology Neurology | DX: G35 Multiple sclerosis (principal); N31.9 Neuromuscular dysfunction of bladder, unspecified; R25.2 Cramp and spasm; R53.83 Other fatigue; R41.3 Other amnesia | CPT/HCPCS: 99443 ==

== ENCOUNTER 2020-12-03 19:38 | Outpatient (REF) | payer MEDICARE, SELFPAY ==
[2020-12-03 20:44] LABS: Anion Gap 9.4 mmol/L (3-11); BUN 14 mg/dL (7-18); CO2 28.6 mmol/L (21.0-32.0); CREATININE 0.54 mg/dL (0.55-1.02); Chloride 98 mmol/L (98-107); Glucose 89 mg/dL (74-106); Potassium 3.9 mmol/L (3.5-5.1); Sodium 136 mmol/L (136-145)
== END 2020-12-03 19:58 ==
LOC: LBN 19:38
PROVIDERS: PCP Emergency Medicine; Visit Provider Emergency Medicine
DX: I10 Essential (primary) hypertension (principal)
CPT/HCPCS: 80048

== ENCOUNTER → 2021-02-28 09:22 | Outpatient (BNVA) | payer MEDICARE, SELFPAY | PROVIDERS: PCP Emergency Medicine; Referring Provider Emergency Medicine; Visit Provider Psychiatry & Neurology Neurology | DX: G35 Multiple sclerosis (principal); N31.9 Neuromuscular dysfunction of bladder, unspecified; R53.83 Other fatigue; R41.3 Other amnesia; R25.2 Cramp and spasm | CPT/HCPCS: 99214 ==

== ENCOUNTER 2021-03-22 02:15 | Outpatient (CLI) | payer MEDICARE, SELFPAY ==
--- NOTE | 2021-03-22 15:35 | DI.MRI_ITS ---
Exam(s) MR LOWER EXTREMITY RT WO EXAM: MR LOWER EXTREMITY RT WO CLINICAL HISTORY: pain, acquired pes planus of rt foot, M21.41 TECHNIQUE: Multiplanar multisequence MRI was performed. COMPARISON: No exams were available for comparison FINDINGS: SKIN/SUBCUTANEOUS TISSUES: There is no evidence of distinct skin ulcer nor subcutaneous tract. Some generalized soft tissue swe lling is noted. MARROW: Some bone edema is noted in the lateral malleolus without an obvious fracture nor evidence o f obvious osteomyelitis. There is also bone edema evident in the talus and calcaneus which appears to be related to advanced d egenerative changes in the subtalar joint as there are also multiple degenerative subarticular cysts. No abnormal signal evident in the cuboid bone nor in the cuneiform is nor in the visualized metatarsa ls. ARTICULATIONS: There is a large ankle joint effusion.. There also appears to be a sinus tarsi ganglion cyst measuri ng approximately 2 x 2 cm. There is significant pes planus. Advanced degenerative changes in the subtalar joint are noted as we ll as significant degenerative change in the talonavicular joint with some medial subluxation of the talar head. Degenerative cysts are noted in the distal talus and edema in the superior half of the n avicular bone. There are mild degenerative changes in the calcaneocuboid joint. LIGAMENTS: Visualized main Lisfranc ligament appears intact. The anterior talofibular ligament is po beth[place] visualized and therefore probably chronic torn although somewhat difficult to evaluate accuratel y with this field of view. Posterior talofibular ligament appears mostly intact. On the opposite-me dial aspect of the ankle no evidence of tear of the deltoid ligament. Also abnormal signal calcaneal fibular ligament probable chronic tearing. TENDONS: Achilles tendon appears intact.Although there is pes planus, the posterior tibial tendon ivy s not appear torn although there is an element of tenosynovitis. Flexor digitorum is also intact as is the flexor hallucis longus although there is prominent tenosynovitis of the flexor hallucis longus noted. On the lateral aspect of the ankle there are no tears of the peroneus brevis. There appears to be an element of split tearing of the peroneus longus approximately behind the lower fibula. No tear of this structure more distally nor on the undersurface of the foot. IMPRESSION: 1. Pes planus deformity with element of midfoot collapse and advanced degenerative changes in the sub talar joint as well as well as other joints as described above. 2. Large ankle joint effusion. There also appears to be sinus tarsi ganglion cyst measuring approxim ately 2 x 2 cm. 3. Multilevel tenosynovitis as described above but without distinct tendon tears. 4. Multilevel bone edema as described above which is most probably related to degenerative change an altered biomechanics. No evidence of obvious skin ulcer nor subcutaneous tract nor intraosseous sig nal typical of osteomyelitis. 5. Nonvisualization of the anterior talofibular ligament consistent with chronic tear of this struct ure. DATA REPOSITORY:
--- NOTE | 2021-03-22 18:57 | DI.VRAD_ITS ---
PROCEDURE INFORMATION: Exam: MR Right Lower Extremity Other Than Joint Without Contrast; Foot Exam date and time: 03/22/2021 3:39 PM Age: 55 years old Clinical indication: Patient HX: Pain, acquired pes planus of right foot; Additional info: Include medial malleolus proximally TECHNIQUE: Imaging protocol: MR of the Right lower extremity without contrast. Exam focused on the foot. COMPARISON: CR XR FOOT RT COMPLETE 04/23/2020 6:31 PM FINDINGS: There is severe pes planus deformity with midfoot collapse. 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 There is severe osteoarthritis of the talonavicular joint with moderate joint subluxation. There is mild osteoarthritis of the calcaneocuboid joint. A large ankle joint effusion is present. There is edema and/or hemorrhage within the subcutaneous tissues of the ankle and foot. Cellulitis is not excluded. There is bone marrow edema signal within the distal femur lateral condyle possibly secondary to acute injury. No displaced fracture is identified. The medial, lateral and anterior ankle tendons are intact. There is a probable chronic rupture of the anterior talofibular ligament. There is a chronic sprain of the calcaneofibular ligament. IMPRESSION: 1. Severe pes planus deformity with midfoot collapse and severe arthrosis within the hindfoot and midfoot. 2. Large ankle joint effusion. 3. Edema within the distal fibula, indeterminate. 4. Edema signal within the subcutaneous tissues of the ankle and foot. Cellulitis is not excluded. 5. 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 6. Chronic sprain of the calcaneofibular ligament. Dictated and Authenticated by: Daniel Judge MD. Ordering:ОЛЬГА Ruiz MD
== END 2021-03-22 02:35 ==
PROVIDERS: PCP Emergency Medicine; Visit Provider Student in an Organized Health Care Education/Training Program
DX: M25.571 Pain in right ankle and joints of right foot (principal); M21.41 Flat foot [pes planus] (acquired), right foot; M79.671 Pain in right foot; M25.471 Effusion, right ankle; M25.871 Other specified joint disorders, right ankle and foot; M65.871 Other synovitis and tenosynovitis, right ankle and foot
CPT/HCPCS: 73718

== ENCOUNTER 2021-04-15 02:40 | Outpatient (CLI) | payer MEDICARE, SELFPAY ==
[2021-04-15 09:30] LABS: INR 1.1 (0.9-1.1)
[2021-04-15 10:18] LABS: Anion Gap 8.7 mmol/L (3-11); BUN 16 mg/dL (7-18); CO2 28.3 mmol/L (21.0-32.0); CREATININE 0.6 mg/dL (0.55-1.02); Calcium 8.9 mg/dL (8.5-10.1); Chloride 102 mmol/L (98-107); Glucose 112 mg/dL (74-106); Potassium 3.9 mmol/L (3.5-5.1); Sodium 139 mmol/L (136-145)
== END 2021-04-15 02:41 | disposition home or self-care (01) ==
LOC: LBO 02:40
PROVIDERS: PCP Emergency Medicine; Visit Provider Nurse Practitioner Gerontology
DX: R55 Syncope and collapse (principal); R35.1 Nocturia; N39.41 Urge incontinence; N31.9 Neuromuscular dysfunction of bladder, unspecified
CPT/HCPCS: 36415; 80048; 85610

== ENCOUNTER → 2021-04-18 10:22 | Outpatient (BNVA) | payer MEDICARE, SELFPAY | PROVIDERS: PCP Emergency Medicine; Referring Provider Emergency Medicine; Visit Provider Nurse Practitioner Gerontology | DX: R35.1 Nocturia (principal); N31.9 Neuromuscular dysfunction of bladder, unspecified | CPT/HCPCS: 99214 ==

== ENCOUNTER → 2021-08-08 09:10 | Outpatient (BNVA) | payer MEDICARE, SELFPAY | PROVIDERS: PCP Emergency Medicine; Visit Provider Psychiatry & Neurology Neurology | DX: M21.41 Flat foot [pes planus] (acquired), right foot (principal); G35 Multiple sclerosis; M54.5 Low back pain; N31.9 Neuromuscular dysfunction of bladder, unspecified; R53.83 Other fatigue; R41.3 Other amnesia | CPT/HCPCS: 99214 ==

== ENCOUNTER 2021-08-25 01:52 | Outpatient (CLI) | payer MEDICARE, SELFPAY ==
--- NOTE | 2021-08-25 14:45 | DI.MRI_ITS ---
Exam(s) MR LUMBAR SPINE WO EXAM: MR LUMBAR SPINE WO CLINICAL HISTORY: low back pain with bilateral radicular symptoms,ms,m54.5. TECHNIQUE: Multiplanar multisequence MRI was performed. COMPARISON: No exams were available for comparison FINDINGS: MR examination of the lumbosacral spine was performed according to the usual protocol. There are mild Meghan discal vertebral signal changes multiple levels consistent with discogenic change s. There are prominent changes of facet hypertrophy throughout the lumbar region. There is minimal loss of height anteriorly of the L1 vertebral body consistent with a minimal chronic anterior fabian chanel fracture. The conus medullaris appears intact. No significant findings at T11-T12. Mild disc bulge at T12-L1 with no evidence disc herniation, central canal spinal stenosis, or neural foraminal stenosis. No significant findings at the L1-2 level. No evidence of central canal spinal stenosis, neural fora hermelinda stenosis, or disc herniation. At L2-3, there is a prominent disc bulge with an apparent annular disc tear. There may be a mild sup erimposed left-sided disc herniation. There is narrowing of the neural foramen on the left and there is narrowing of the left lateral recess. There is borderline central canal spinal stenosis. At L3-4, there is moderate disc bulge without evidence of a focal disc herniation. There is right-si ded neural foraminal narrowing. Left neural foramen appears intact. There is mild central canal spi nal stenosis. At L4-5, there is probable L4 spondylolysis with associated spondylolisthesis of L4 on L5 with anteri or displacement of L4 by about 15 percent of the vertebral width relative to L5. There is bilateral neural foraminal narrowing. There is a disc bulge. There is severe central canal spinal stenosis. There are prominent hypertrophic changes involving facets at this level as well. At L5-S1, there is normal appearing disc contour. No evidence of neural foraminal stenosis or centra l canal spinal stenosis. IMPRESSION: Multilevel central canal spinal stenosis as described above with severe central canal spinal stenosis at L4-5 associated with apparent spondylolysis at this level. Multilevel neural foraminal narrowing also noted. Please see above discussion for findings at individual levels. DATA REPOSITORY:
== END 2021-08-25 02:12 ==
PROVIDERS: PCP Emergency Medicine; Visit Provider Psychiatry & Neurology Neurology
DX: M54.16 Radiculopathy, lumbar region (principal); M54.59 Other low back pain; M48.061 Spinal stenosis, lumbar region without neurogenic claudication; M43.06 Spondylolysis, lumbar region; G35 Multiple sclerosis
CPT/HCPCS: 72148

== ENCOUNTER 2021-10-13 02:35 | Outpatient (CLI) | payer MEDICARE, SELFPAY ==
[2021-10-13 15:17] LABS: Anion Gap 6.2 mmol/L (3-11); BUN 16 mg/dL (7-18); CO2 30.8 mmol/L (21.0-32.0); CREATININE 0.5 mg/dL (0.55-1.02); Calcium 9.1 mg/dL (8.5-10.1); Chloride 101 mmol/L (98-107); Glucose 97 mg/dL (74-106); Potassium 4.1 mmol/L (3.5-5.1); Sodium 138 mmol/L (136-145)
== END 2021-10-13 02:36 | disposition home or self-care (01) ==
LOC: LBO 02:36
PROVIDERS: PCP Emergency Medicine; Visit Provider Nurse Practitioner Gerontology
DX: R35.1 Nocturia (principal)
CPT/HCPCS: 36415; 80048

== ENCOUNTER → 2021-10-18 10:26 | Outpatient (BNVA) | payer MEDICARE, SELFPAY | PROVIDERS: PCP Emergency Medicine; Referring Provider Emergency Medicine; Visit Provider Nurse Practitioner Gerontology | DX: N31.9 Neuromuscular dysfunction of bladder, unspecified (principal); R35.1 Nocturia; Z79.899 Other long term (current) drug therapy | CPT/HCPCS: 99214 ==

== ENCOUNTER → 2021-10-24 12:12 | Outpatient (BNVA) | payer MEDICARE, SELFPAY | PROVIDERS: PCP Emergency Medicine; Visit Provider Psychiatry & Neurology Neurology | DX: G35 Multiple sclerosis (principal); M21.41 Flat foot [pes planus] (acquired), right foot; N31.9 Neuromuscular dysfunction of bladder, unspecified; R53.83 Other fatigue; R41.3 Other amnesia; R25.2 Cramp and spasm; K59.00 Constipation, unspecified; K59.2 Neurogenic bowel, not elsewhere classified | CPT/HCPCS: 99214 ==

== ENCOUNTER 2021-11-17 12:43 | Outpatient (CLI) | payer MEDICARE, SELFPAY ==
--- NOTE | 2021-11-17 06:00 | DI.RAD_ITS ---
Exam(s) XR PAIN CLINIC LUMBAR SP 2V EXAM: XR PAIN CLINIC LUMBAR SP 2V CLINICAL HISTORY: DX: Lumbar Radiculopathy TECHNIQUE: 2D and realtime digital imaging was performed. CONTRAST MATERIAL: Refer to procedure report. COMPARISON: No exams were available for comparison FINDINGS: Fluoroscopy was provided for Dr. Mon during the performance of a epidural steroid injection. Plemarj e refer to the procedure report for complete details. Ka,r=3.46 mGy IMPRESSION:
[2021-11-17 13:05] VITALS: BP 110/66; PULSE 58; RESP 18; TEMP 36.4; O2SAT 97
[2021-11-17] MEDS: methylPREDNISolone ACETATE 80 MG/ML VIAL IJ (13:27)
[2021-11-17] MEDS: Omnipaque 240 MG/ML 50 ML BTL IJ (13:27)
--- NOTE | 2021-11-17 13:27 | PDOC.PAIN_ITS ---
Pain Clinic Procedure Note Procedure Note Procedure Note: Lumbar Epidural Steroid Injection Procedure Note COMMENTS: I previously evaluated the patient on 10/12/21. DX: Lumbosacral radiculopathy Pre-procedure pain VAS: 10 Mina Coker has been referred to the [facility] for lumbar epidural steroid injection. The patient was greeted by the nurse who verified patients name and . Patient was then taken to the fluoroscopy suite. The patient was interviewed and the medial record reviewed. There were no medical, pharmacologic, radiographic, or other structural contraindications to attempting fluoroscopically guided lumbar epidural steroid injection. Risks and expected side effects as well as potential benefits of the procedure were reviewed and voiced concerns expressed. The patient consent form was signed and witnessed. Standard patient time-out procedure was performed. The patient was placed in the prone position on the fluoroscopy table and automated blood pressure cuff and pulse oximeter applied. The skin entry point for entering/approaching the epidural space at L5-S1 and marked. Following thorough chlorhexadine preparation of the skin and draping and 1% lidocaine infiltration of the skin entry point and subcutaneous tissues, a 18 gauge Touhy needle was placed under fluoroscopic guidance and with loss of resistance technique into the epidural space. Needle tip placement and depth were aided and confirmed by fluoroscopy. There was no paresthesia or return of blood or CSF through the needle. 1 cc's of Omnipaque 240 was injected with clear epidural spread confirmed with fluoroscopy. 80mg depomedrol was injected. There was not any unusual discomfort expressed by Mina Coker. Patient's vital signs were stable throughout the procedure and were as recorded in nursing records. Follow up plans and appointments were discussed with patient. Post procedure instruction was given as documented in nursing records and having met discharge criteria and was discharged from the [facility]. COMMENTS: If this procedure is helpful, it can be completed up to 3 times per 12 months. Post-procedure pain VAS: 11/21 Alex Mon DO, M[facility]
[2021-11-17 13:32] VITALS: BP 140/67; PULSE 68; RESP 18; O2SAT 99
== END 2021-11-17 12:44 | disposition home or self-care (01) ==
LOC: PC 12:44
PROVIDERS: PCP Emergency Medicine; Visit Provider Preventive Medicine Occupational Medicine
DX: M54.16 Radiculopathy, lumbar region (principal)
CPT/HCPCS: 62323; 72100; J1040; Q9967

== ENCOUNTER 2021-12-14 09:50 | Outpatient (CLI) | payer MEDICARE, SELFPAY ==
--- NOTE | 2021-12-14 09:02 | DI.RAD_ITS ---
Exam(s) XR LUMBAR SPINE COMP W FLEX/EX EXAM: XR LUMBAR SPINE COMP W FLEX/EX CLINICAL HISTORY: Measure translation - if any, lumbosacral radiculopathy, spinal stenosis. TECHNIQUE: 2D digital imaging was performed. COMPARISON: MR MRI - THORACIC SPINE W/WO CONT from 11/09/2010 CT ABD PELVIS WITH CONTRAST from 01/13/2011 CT UPPER ABD WITH CONTRAST (P) from 01/24/2011 CT PELVIC/LOWER ABD WITHOUT CONT from 09/14/2012 MR MR LUMBAR SPINE WO from 08/25/2021 FINDINGS: There is a transitional type vertebral body at the lumbosacral junction. There is partial sacralizat ion of the left L5 transverse process. There is severe narrowing of the right side of the L4-5 disc space and moderate narrowing of the right side of the L3-4 disc space creating moderate levoscoliosis . There are sclerotic changes in the endplates at these levels. There is a stable mild L1 compressi on fracture. There are prominent facet degenerative changes at L4-5 causing L4-5 spondylolisthesis. Flexion and extension lateral views were performed in addition to the routine neutral view there is no evidence of subluxation. IMPRESSION: degenerative disc changes and facet degenerative changes greatest at L4-5. No evidence of subluxatio n with flexion or extension. DATA REPOSITORY: RADIATION DOSE DELIVERED:
== END 2021-12-14 10:10 ==
PROVIDERS: PCP Emergency Medicine; Visit Provider Preventive Medicine Occupational Medicine
DX: M48.061 Spinal stenosis, lumbar region without neurogenic claudication (principal); M51.16 Intervertebral disc disorders with radiculopathy, lumbar region; M47.26 Other spondylosis with radiculopathy, lumbar region; M43.16 Spondylolisthesis, lumbar region
CPT/HCPCS: 72114

== ENCOUNTER 2022-02-01 01:05 | Outpatient (CLI) | payer MEDICARE, SELFPAY ==
--- NOTE | 2022-02-01 | DI.MRI_ITS ---
Exam(s) MR CERVICAL SPINE WO EXAM: MR CERVICAL SPINE WO CLINICAL HISTORY: BALANCE DISORDER, R26.89 TECHNIQUE: Multiplanar multisequence MRI of the cervical spine was performed without intravenous con trast. COMPARISON: MR MRI - CERVICAL SPINE W/WO from 08/14/2014 FINDINGS: There is again noted reversal of the normal curvature of the cervical spine, this somewhat further in creased when compared to 2014. CERVICOMEDULLARY JUNCTION: Intact with no evidence of cerebellar tonsillar ectopia. No obvious abnor mality of the odontoid process. No evidence of Chiari 1 malformation. CERVICAL SPINAL CORD: There is a focus of signal abnormality within the upper spinal cord again noted at its junction with the medulla oblongata, unchanged from 2014. In addition, there is now some inc reased cord signal at C5-6 level, not previously present 8 years ago. There is no evidence of focal cord swelling nor focal cord atrophy and there is no syringomyelia. OSSEOUS:There are no cervical fractures evident. No significant osseous lesions in the cervical vert ebrae. INDIVIDUAL LEVELS: C2-3: No disc herniation nor central canal stenosis. No foraminal stenosis. No facet arthropathy. C3-4: Advanced disc space narrowing. Broad relatively symmetrical annular bulging. Mild central can al stenosis. Moderate bilateral foraminal stenosis.Prominent bilateral facet arthropathy with modera te bilateral foraminal stenosis. C4-5: Advanced disc space narrowing. Mild symmetrical annular bulging without a dominant disc hernia tion and central canal dimensions are within normal limits at this level. Mild degenerative changes in the facet joints. Mild foraminal stenosis due to disc height loss. C5-6: Chronic advanced disc height loss. Mild symmetrical annular bulging. This effaces the anterio r thecal sac and there is mild central canal stenosis. AP canal measurement is 7 millimeters at this level. There is mild increased signal within the cervical cord at this level, this myelitis signal not associated with spinal cord swelling nor atrophy. There is significant degenerative change in trupti th facet joints as well as by a lateral moderate foraminal narrowing. C6-7: Chronic advanced disc space narrowing again noted mild symmetrical annular bulging without a do minant disc herniation. No central canal stenosis. Facet joints exhibit minimal degenerative change and there is no foraminal stenosis at this level. C7-T1: Almost normal disc height. No disc herniation nor central canal stenosis. No facet arthropat hy.No foraminal stenosis. IMPRESSION: 1. Compared to the prior MRI scan of August 2014 there has been some further progression of degenera tive disc disease and the reversal of the normal curvature of the spine, this, however, not associate d with a new dominant focal disc herniation. Disc and foraminal findings are as discussed individual ly above. There is mild central spinal canal stenosis evident at the C5-6 level with lesser amounts of central canal narrowing at the other levels. There is multilevel foraminal stenosis related to di sc height loss and facet arthropathy. There are small Luschka joint osteophytes at C5-6 level. There are no fractures nor listhesis evident. 2. However, on the present study there is now abnormal myelitis signal seen within the cervical cord at C5-6 level, subtle but present. Previously described mild focus of increased signal in the upperm ost cervical spinal cord at its junction with the medulla is unchanged from the 2014 study. There is no evidence of focal cord swelling nor focal cord atrophy and there is no evidence of syrinx. Also no evidence of incidental cerebellar tonsillar ectopia. 3. DATA REPOSITORY:
== END 2022-02-01 01:25 ==
PROVIDERS: PCP Family Medicine; Visit Provider Physician Assistant Surgical
DX: R26.89 Other abnormalities of gait and mobility (principal); M48.02 Spinal stenosis, cervical region; M25.78 Osteophyte, vertebrae
CPT/HCPCS: 72141

== ENCOUNTER 2022-03-13 15:23 | Inpatient (IN) | payer MEDICARE, SELFPAY ==
[2022-03-13 15:31] VITALS: BP 170/90; PULSE 80; RESP 16; TEMP 36.6; O2SAT 99
--- NOTE | 2022-03-13 16:00 | DI.RAD_ITS ---
Exam(s) XR HIP LT COMPLETE AP PELVIS EXAM: XR HIP LT COMPLETE AP PELVIS INDICATION: fall/pain. COMPARISON: CR PELVIS AP from 12/12/2010 TECHNIQUE: 2D digital imaging was performed. Two views. FINDINGS: There is a mildly displaced fracture of the subcapital region the left femur. There is mild impactio n. No additional fractures are seen. Soft tissue calcifications are noted. The hip joint spaces ar e well maintained. IMPRESSION: Subcapital fracture of the left femur. DATA REPOSITORY: RADIATION DOSE DELIVERED:
--- NOTE | 2022-03-13 16:09 | ED.GENADUL_ITS ---
Discharge Plan Disposition Patient Disposition: [facility] INPATIENT Condition: Stable Discharge Details Chief Complaint: Trauma Clinical Impression: Closed subcapital fracture of left femur Primary Care Provider: Elizabeth Nunn ED Provider: Lowell Tolentino Home Meds and New Rx's Prescriptions: No Action triamcinolone acetonide [Nasacort] 55 mcg aerosol,spray 1 spray JAMEL BID 0RF melatonin 3 mg tablet 6 mg PO HS 0RF turmeric root extract 500 mg capsule 500 mg PO DAILY 0RF desmopressin 0.2 mg tablet 0.4 mg PO HS Qty: 180 3RF diphenhydramine-acetaminophen [Tylenol PM Extra Strength] 1 EACH tablet 1 tab PO HS 0RF Timoptic Ocudose (PF) 1 EACH dropperette 1 drp Ophthalmic DAILY 0RF Rx Instructions: BOTH EYES B Complex Plus Vitamin C 1 EACH capsule 1 cap PO DAILY 0RF Probiotic and Acidophilus 1 EACH capsule 1 cap PO DAILY 0RF pedi multivit 17-iron fumarate 1 EACH tablet,chewable 2 tab PO DAILY 0RF calcium carbonate-vitamin D3 1 EACH tablet 1 ea PO DAILY 0RF glucosamine sulf-chondroitinSA 1 EACH capsule 1 ea PO BID 0RF cholecalciferol (vitamin D3) 5,000 UNIT tablet 5,000 unit PO DAILY 0RF dalfampridine [Ampyra] 10 mg tablet extended release 12 hr 10 mg PO BID Qty: 180 3RF modafinil [Provigil] 200 mg tablet 200 mg PO BID Qty: 180 3RF omeprazole 20 mg capsule,delayed release(DR/EC) 20 mg PO DAILY Qty: 90 3RF amlodipine 10 mg tablet 10 mg PO DAILY Qty: 90 3RF baclofen 20 mg tablet 40 mg PO TID Qty: 540 3RF citalopram 20 mg tablet 20 mg PO DAILY Qty: 90 4RF lisinopril 20 mg tablet See Rx Instructions .ROUTE .COMPLEX Qty: 180 0RF Dose Instruction: TAKE 2 TABLETS BY MOUTH DAILY Rx Instructions: TAKE 2 TABLETS BY MOUTH DAILY magnesium 500 mg Tablet PO 0RF Medical Decision Making 56-year-old female, past medical history of hypertension, asthma, MS, bilateral foot drop, neurogenic bladder, presents for left hip pain status post mechanical slip and fall. There is no obvious shortening or rotation but she is unable to bear weight. Plan is to obtain x-ray of the left hip and pelvis. Patient declines any analgesia. X-ray reveals a subcapital fracture of the left femur. Given this I will obtain IV access, CBC, CMP, and a preprocedural COVID test. Case discussed with orthopedics, Dr. Swan. Recommends a hospitalist admission with a orthopedic consultation, will bring to the OR tomorrow. Case then discussed with Dr. Tucker who is agreeable to admission and will place orders. Patient understands, is agreeable to this plan, and has no additional questions or concerns upon admission This documentation was generated using [employer] system, please disregard any oddities of phrase or misspellings. Medical Records Medical records reviewed: Yes I reviewed the patient's medical records. Imaging Data Radiologic Study: Attestation: I personally reviewed and interpreted this imaging study as follows: Imaging: X-Ray Radiologist's impression: Exam(s) XR HIP LT COMPLETE AP PELVIS EXAM: XR HIP LT COMPLETE AP PELVIS INDICATION: fall/pain. COMPARISON: CR PELVIS AP from 12/12/2010 TECHNIQUE: 2D digital imaging was performed. Two views. FINDINGS: There is a mildly displaced fracture of the subcapital region the left femur. There is mild impaction. No additional fractures are seen. Soft tissue calcifications are noted. The hip joint spaces are well maintained. IMPRESSION: Subcapital fracture of the left femur. Lab Data Lab results reviewed: Yes I reviewed the patient's lab results. Labs: Laboratory Tests Range/Units 03/13/22 03/13/22 03/13/22 16:38 16:38 16:45 WBC (4.4-10.8) 10^3/uL 15.19 H RBC (3.93-5.22) 10^6/uL 3.72 L Hgb (11.2-15.7) g/dL 11.6 Hct (36.0-46.0) % 34.9 L MCV (80-95) fL 94 MCH (27.0-33.0) pg 31.2 MCHC (32.0-36.0) % 33.2 RDW (11.7-14.6) % 13.3 Plt Count (130-400) 10^3/uL 359 MPV (8.0-11.0) fL 9.3 Immature Gran % 0.4 Neutrophils % 79.1 Lymphocytes % 12.2 Monocytes % 7.0 Eosinophils % 0.9 Basophils % 0.4 Nucleated RBC % (0.0-0.3) % 0.0 Absolute Neutrophils (1.2-6.7) 10^3/uL 12.02 H Absolute Lymphocytes (1.2-3.4) 10^3/uL 1.85 Absolute Monocytes (0.1-0.8) 10^3/uL 1.06 H Absolute Eosinophils (0.0-0.7) 10^3/uL 0.14 Absolute Basophils (0.0-0.2) 10^3/uL 0.06 Sodium (136-145) mmol/L 133 L Potassium (3.5-5.1) mmol/L 3.8 Chloride (98-107) mmol/L 97 L Carbon Dioxide (21.0-32.0) mmol/L 27.8 Anion Gap (3-11) mmol/L 8.2 BUN (7-18) mg/dL 14 Creatinine (0.55-1.02) mg/dL 0.5 L Estimated GFR/1.73 m2 (mL/min/1.73m2) >= 60.00 Glucose (74-106) mg/dL 98 Calcium (8.5-10.1) mg/dL 9.1 Total Bilirubin (0.2-1.0) mg/dL 0.3 AST (15-37) U/L 26 ALT (14-59) U/L 27 Alkaline Phosphatase (46-116) U/L 103 Total Protein (6.4-8.2) g/dL 7.2 Albumin (3.4-5.0) g/dL 4.2 COVID-19 Source Nasal/Nares HPI General Date/Time Provider Initiated Documentation: 03/13/22 15:35 . Information obtained by: patient . History of Present Illness 56 year old F presents to the emergency department with the chief complaint of L hip injury, described as mild and severe, with intensity rated at 8 (2 at rest, 8 with bearing weight). Quality is described as aching, and is localized to the left and lower extremity. Patient reports no radiation. Patient started experiencing this hour(s) (4) and it has been constant. improves with Immobilization improves symptom(s), Movement worsens symptoms . Patient notes no other symptoms.. Patient did receive the following treatments prior to arrival, none Related Data Home Medications Medication Instructions Recorded Confirmed Lactobacillus comb 1 cap PO DAILY 02/04/13 03/13/22 no.[id number] 300 million cell-250 mg capsule (Probiotic and Acidophilus) diphenhydramine 25 1 tab PO HS 02/04/13 03/13/22 mg-acetaminophen 500 mg tablet (Tylenol PM Extra Strength) pediatric multivit no.17-ferrous 2 tab PO DAILY tab.chew 02/04/13 03/13/22 fumarate 15 mg iron chewable tablet timolol maleate (PF) 0.25 % eye 1 drp OPHTHALMIC DAILY drp 02/04/13 03/13/22 drops in a dropperette (Timoptic Ocudose (PF)) vitamin B comp and C no.3 15 mg-10 1 cap PO DAILY 02/04/13 03/13/22 mg-50 mg-5 mg-300 mg capsule (B Complex Plus Vitamin C) calcium carbonate 600 mg-vitamin 1 ea PO DAILY 01/26/15 03/13/22 D3 5 mcg (200 unit) tablet cholecalciferol (vitamin D3) 125 5,000 unit PO DAILY 01/26/15 03/13/22 mcg (5,000 unit) tablet glucosamine sulfate 250 1 ea PO BID 01/26/15 03/13/22 mg-chondroitin sulfate A 200 mg capsule triamcinolone acetonide 55 mcg 1 spray JAMEL BID ml 07/22/18 03/13/22 nasal spray aerosol (Nasacort) melatonin 3 mg tablet 6 mg PO HS tab 03/25/19 03/13/22 turmeric root extract 500 mg 500 mg PO DAILY 05/07/19 03/13/22 capsule dalfampridine 10 mg 10 mg PO BID #180 tab 08/15/21 03/13/22 tablet,extended release,12 hr (Ampyra) modafinil 200 mg tablet (Provigil) 200 mg PO BID #180 tab 09/21/21 03/13/22 desmopressin 0.2 mg tablet 0.4 mg PO HS #180 tab 10/18/21 03/13/22 omeprazole 20 mg capsule,delayed 20 mg PO DAILY #90 cap 10/20/21 03/13/22 release magnesium 500 mg tablet PO 11/17/21 03/13/22 amlodipine 10 mg tablet 10 mg PO DAILY #90 tab 12/02/21 03/13/22 baclofen 20 mg tablet 40 mg PO TID #540 tab 01/02/22 03/13/22 citalopram 20 mg tablet 20 mg PO DAILY #90 tab 01/03/22 03/13/22 lisinopril 20 mg tablet See Rx Instructions .ROUTE 02/07/22 03/13/22 .COMPLEX #180 tab Previous Rx's Medication Instructions Recorded dalfampridine 10 mg 10 mg PO BID #180 tab 08/15/21 tablet,extended release,12 hr (Ampyra) modafinil 200 mg tablet (Provigil) 200 mg PO BID #180 tab 09/21/21 desmopressin 0.2 mg tablet 0.4 mg PO HS #180 tab 10/18/21 omeprazole 20 mg capsule,delayed 20 mg PO DAILY #90 cap 10/20/21 release amlodipine 10 mg tablet 10 mg PO DAILY #90 tab 12/02/21 baclofen 20 mg tablet 40 mg PO TID #540 tab 01/02/22 citalopram 20 mg tablet 20 mg PO DAILY #90 tab 01/03/22 lisinopril 20 mg tablet See Rx Instructions .ROUTE 02/07/22 .COMPLEX #180 tab Allergies Allergy/AdvReac Type Severity Reaction Status Date / Time Sulfa (Sulfonamide Allergy Intermediate SKIN RASH Verified 03/13/22 15:35 Antibiotics) Penicillins Allergy Unknown RASH Verified 03/13/22 15:35 chlorthalidone AdvReac Severe Hyponatremi Verified 03/13/22 15:35 a codeine AdvReac Unknown NAUSEA Verified 03/13/22 15:35 General Stated Complaint: Trauma LAI: 3 Review of Systems Constitutional Constitutional: Denies headache(s) and Reports weakness (baseline foot drop) ENT Ears, Nose, Mouth, and Throat: Denies headache(s) and Denies neck pain Cardiovascular Cardiovascular: Denies chest pain Musculoskeletal Musculoskeletal: Reports arthralgias, Denies neck pain, Denies numbness, Reports stiffness and Denies tingling Integumentary/Breasts Skin/Breast: Denies rash Neurologic Neurologic: Denies headache(s), Denies numbness, Denies tingling and Reports weakness (baseline foot drop) PFSH All Active Problems (Updated 03/13/22 @ 17:27 by Lowell J Rajan, PA) Closed subcapital fracture of left femur (Acute) Right sided sciatica (Acute) Constipation due to neurogenic bowel (Acute) Lumbosacral radiculopathy (Acute) Spinal stenosis of lumbar region with radiculopathy (Acute) Low back pain (Acute) Hamstring strain (Acute) Synovial cyst of popliteal space (Acute) Syncope (Acute) Left carpal tunnel syndrome (Acute) Atypical presentation of carpal tunnel syndrome I think her symptoms may be more likely to trauma to the radial nerve causing some sensory dysfunction from her frequent falls. She has no evidence of weakness of the wrist extensors or finger extensors. I would just recommend observation however if the patient has increasing symptoms of carpal tunnel on the left side then I would consider injection. I do not see need for any exploration of the radial nerve or the median nerve at this point. Memory loss (Chronic) Status post tonsillectomy and adenoidectomy (Acute) Status post myringotomy with insertion of tube (Acute) Status post bunionectomy (Acute) History of arthroscopy of knee (Acute) Fatigue (Acute) Acquired pes planus of right foot (Acute) Nocturia (Acute) Urge incontinence of urine (Acute 08/08/12) Spasticity (Acute 05/17/15) Optic neuritis (Acute) Neurogenic bladder (Acute 01/13/16) Multiple sclerosis (Acute 08/28/11) Foot drop, left (Acute 05/17/15) Essential hypertension (Acute 09/02/13) Asthma (Acute) Pt denies having asthma Anemia (Acute) Medical History Depression GERD (gastroesophageal reflux disease) Surgical History S/P bunionectomy bilateral S/P left knee arthroscopy partial medial meniscectomy, L S/P myringotomy with insertion of tube x9 S/P ovarian cystectomy S/P tonsillectomy and adenoidectomy Family History Mother , age 76 Diabetes Essential hypertension Asthma Father , age 55 Substance abuse Essential hypertension Hypercholesterolemia Alcohol abuse Brother Alcohol abuse Substance abuse Maternal Grandfather , age 68 Essential hypertension Hyperlipidemia Stroke Liver cancer Paternal Grandfather , age 78 Stomach cancer Maternal Grandmother , age 97 Diabetes Essential hypertension Hyperlipidemia Paternal Grandmother , age 76 No problems noted. Daughter No problems noted. Social History Smoking/Tobacco Use Status: Former Tobacco Use tobacco type: cigarettes Quit Date: 11/12/07 Second Hand Exposure: Yes Smoking risk assessment performed?: Yes Alcohol Intake: current Alcohol Intake frequency: a few times a month Alcohol t ype: wine Drug use: Daily Substance use type: marijuana Caregiver/Support person: No Household members: spouse Number of Children: 1 Communication Needs: None Do you need help understanding health information?: Never current occupation: [employer] 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 Do you feel safe at home: Yes Do you feel safe in your relationship?: Yes Exam Const General: cooperative, healthy appearing, comfortable and no acute distress Orientation: alert, awake and oriented x3 HENMT Head: normal to inspection, normocephalic and atraumatic Eyes Conjunctivae: conjunctivae normal Neck Neck: normal visual inspection, trachea midline and supple Resp Effort & Inspection: normal respiratory effort and able to speak in complete sentences Auscultation: clear to auscultation bilaterally Cardio Rate: regular rate Rhythm: regular rhythm GI Palpation: soft and nontender Back/Spine/Pelvis Back: no CVA tenderness and back tenderness (Diffuse mild lumbar, slightly worse on the right) Skin General skin exam: no rashes or lesions noted Neuro General: patient alert, patient awake, patient oriented x3, moves all extremities and no focal motor deficits Cognition: normal cognition Speech: speech normal Motor: other (Baseline bilateral foot drop, otherwise unremarkable.) Sensory Exam: no sensory deficits noted Extrem General: full ROM, capillary refill normal, no pedal edema and no calf tenderness Other: Left leg with no shortening or rotation. There is diffuse anterior and lateral tenderness. Skin is intact. No obvious deformity. Normal pedal pulse. Pat ient with left lateral hip ecchymosis which appears old in nature, she reports bumping it into a countertop 1 week ago. Psych Appearance: grossly normal Mental Status: mental status grossly normal Course Vital Signs Vital signs: Vital Signs Temperature 36.6 C 03/13/22 15:31 Pulse 80 03/13/22 15:31 Respiratory Rate 16 03/13/22 15:31 Blood Pressure 170/90 H 03/13/22 15:31 Pulse Oximetry 99 03/13/22 15:31 Temperature 36.6 C 03/13/22 15:31 Temperature Source Tympanic 03/13/22 15:31 Pulse 80 03/13/22 15:31 Respiratory Rate 16 03/13/22 15:31 Blood Pressure 170/90 H 03/13/22 15:31 Pulse Oximetry 99 03/13/22 15:31 Oxygen Delivery Method Room Air 03/13/22 15:31 Oxygen Flow Rate 0 03/13/22 15:31
--- NOTE | 2022-03-13 16:14 | NUR.NOTE ---
Nursing Note: Pt to DI via stretcher for ordered exams.
[2022-03-13 16:54] LABS: Abs Immature Grans 0.06 10^3/uL (0.0-0.06); Absolute Basophil Count 0.06 10^3/uL (0.0-0.2); Absolute Lymphocyte Count 1.85 10^3/uL (1.2-3.4); Absolute Monocyte Count 1.06 10^3/uL (0.1-0.8); Basophils % 0.4; Eosinophils % 0.9; HCT 34.9 % (36.0-46.0); HGB 11.6 g/dL (11.2-15.7); Immature Grans % 0.4; Lymphocytes % 12.2; MCH 31.2 pg (27.0-33.0); MCHC 33.2 % (32.0-36.0); MCV 94 fL (80-95); MPV 9.3 fL (8.0-11.0); Neutrophils % 79.1; Platelet Count 359 10^3/uL (130-400); RBC 3.72 10^6/uL (3.93-5.22); RDW 13.3 % (11.7-14.6); WBC 15.19 10^3/uL (4.4-10.8)
[2022-03-13 16:54] LABS: Source Nasal/Nares
--- NOTE | 2022-03-13 16:58 | NUR.NOTE ---
Nursing Note:Pt return from DI, IV & labs as ordered, Dr. Swan in to see pt.
[2022-03-13 17:01] LABS: Absolute Eosinophil Count 0.14 10^3/uL (0.0-0.7); Absolute Neutrophil Count 12.02 10^3/uL (1.2-6.7)
--- NOTE | 2022-03-13 17:06 | HPE_ITS ---
Date of service: 03/13/22 Time of Service: 17:06 Assessment and Plan Assessment and plan (1) Closed subcapital fracture of left femur: Status: Acute Assessment and plan: orthopedics consulted, plan for OR on Sunday after equipment secured routine pre-operative care pain management incentive spirometry teds, scds (2) Spasticity: Status: Chronic Assessment and plan: continue baclofen (3) Essential hypertension: Status: Chronic Assessment and plan: will monitor and continue home medications (4) Multiple sclerosis: Status: Chronic Assessment and plan: stable continue home medications (5) Constipation due to neurogenic bowel: Status: Acute Assessment and plan: bowel management case discussed with DR Velasco. History of Present Illness History of Present Illness Chief Complaint: left hip pain Narrative: presents to the ED for evaluation of left hip pain that resulted from a mechanical fall while at home. She has MS and chronic left foot drop, wears a splint. states she went to get up and fell over. no other injury noted other than left hip pain. she was brought to the ED and work up shows subcapital fracture of the left femur. Her case was discussed with orthopedics who plans a surgical repair here at [facility]. she will be admitted to hospitalist services for medical management and surgical clearance Review of Systems All systems reviewed & are unremarkable except as noted in HPI and below Constitutional Constitutional: Reports frequent falls ENT Ears, Nose, Mouth, and Throat: Denies vertigo and Denies dizziness Cardiovascular Cardiovascular: Denies syncope Musculoskeletal Musculoskeletal: Reports arthralgias (left hip) Neurologic Neurologic: Denies confusion, Denies vertigo, Denies dizziness, Denies syncope and Reports frequent falls Psychiatric Psychiatric: Denies confusion [facility] All Active Problems (Updated 03/14/22 @ 12:04 by eDyanira George) Murmur, cardiac (Acute) Closed subcapital fracture of left femur (Acute) Right sided sciatica (Acute) Constipation due to neurogenic bowel (Acute) Lumbosacral radiculopathy (Acute) Spinal stenosis of lumbar region with radiculopathy (Acute) Low back pain (Acute) Hamstring strain (Acute) Synovial cyst of popliteal space (Acute) Syncope (Acute) Left carpal tunnel syndrome (Acute) Atypical presentation of carpal tunnel syndrome I think her symptoms may be more likely to trauma to the radial nerve causing some sensory dysfunction from her frequent falls. She has no evidence of weakness of the wrist extensors or finger extensors. I would just recommend observation however if the patient has increasing symptoms of carpal tunnel on the left side then I would consider injection. I do not see need for any exploration of the radial nerve or the median nerve at this point. Memory loss (Chronic) Status post tonsillectomy and adenoidectomy (Acute) Status post myringotomy with insertion of tube (Acute) Status post bunionectomy (Acute) History of arthroscopy of knee (Acute) Fatigue (Acute) Acquired pes planus of right foot (Acute) Nocturia (Acute) Urge incontinence of urine (Acute 08/08/12) Spasticity (Chronic 05/17/15) Optic neuritis (Acute) Neurogenic bladder (Acute 01/13/16) Multiple sclerosis (Chronic 08/28/11) Foot drop, left (Acute 05/17/15) Essential hypertension (Chronic 09/02/13) Asthma (Acute) Pt denies having asthma Anemia (Acute) Medical History Depression GERD (gastroesophageal reflux disease) Surgical History S/P bunionectomy bilateral S/P left knee arthroscopy partial medial meniscectomy, L S/P myringotomy with insertion of tube x9 S/P ovarian cystectomy S/P tonsillectomy and adenoidectomy Family History Mother , age 76 Diabetes Essential hypertension Asthma Father , age 55 Substance abuse Essential hypertension Hypercholesterolemia Alcohol abuse Brother Alcohol abuse Substance abuse Maternal Grandfather , age 68 Essential hypertension Hyperlipidemia Stroke Liver cancer Paternal Grandfather , age 78 Stomach cancer Maternal Grandmother , age 97 Diabetes Essential hypertension Hyperlipidemia Paternal Grandmother , age 76 No problems noted. Daughter No problems noted. Social History Smoking/Tobacco Use Status: Former Tobacco Use tobacco type: cigarettes Quit Date: 11/12/07 Second Hand Exposure: Yes Smoking risk assessment performed?: Yes Alcohol Intake: current Alcohol Intake frequency: a few times a month Alcohol type: wine Drug use: Daily Substance use type: marijuana Caregiver/Support person: No Household members: spouse Number of Children: 1 Communication Needs: None Do you need help understanding health information?: Never current occupation: [employer] Disability Pets and animals: Yes Pets and animals: cat(s) Do you think of yourself as: straight/heterosexual Current gender identity: female What is your relationship status?: How often do you talk on the phone with friends or family?: never How often do you get together with friends or relatives?: never Do you belong to any clubs or organized social groups?: no Panel score (0-1 are the most socially isolated patients): 1 What type of physical activity do you participate in: none Veda/Sabianist: None Special veda needs: No Seatbelt use: always Helmet use: Yes Helmet use: sometimes Drive intox or ride w/intox 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: No Do you feel safe at home: Yes Do you feel safe in your relationship?: Yes Meds Allergies and Home Medications Allergies Allergy/AdvReac Type Severity Reaction Status Date / Time Sulfa (Sulfonamide Allergy Intermediate SKIN RASH Verified 03/13/22 15:35 Antibiotics) Penicillins Allergy Unknown RASH Verified 03/13/22 15:35 chlorthalidone AdvReac Severe Hyponatremi Verified 03/13/22 15:35 a codeine AdvReac Unknown NAUSEA Verified 03/13/22 15:35 Home Medications Medication Instructions Recorded Confirmed Type Lactobacillus comb 1 cap PO DAILY 02/04/13 03/13/22 History no.6-[id number] 300 million cell-250 mg capsule (Probiotic and Acidophilus) diphenhydramine 25 1 tab PO HS 02/04/13 03/13/22 History mg-acetaminophen 500 mg tablet (Tylenol PM Extra Strength) pediatric multivit no.17-ferrous 2 tab PO DAILY tab.chew 02/04/13 03/13/22 History fumarate 15 mg iron chewable tablet timolol maleate (PF) 0.25 % eye 1 drp OPHTHALMIC DAILY drp 02/04/13 03/13/22 History drops in a dropperette (Timoptic Ocudose (PF)) vitamin B comp and C no.3 15 mg-10 1 cap PO DAILY 02/04/13 03/13/22 History mg-50 mg-5 mg-300 mg capsule (B Complex Plus Vitamin C) calcium carbonate 600 mg-vitamin 1 ea PO DAILY 01/26/15 03/13/22 History D3 5 mcg (200 unit) tablet cholecalciferol (vitamin D3) 125 5,000 unit PO DAILY 01/26/15 03/13/22 History mcg (5,000 unit) tablet glucosamine sulfate 250 1 ea PO BID 01/26/15 03/13/22 History mg-chondroitin sulfate A 200 mg capsule triamcinolone acetonide 55 mcg 1 spray JAMEL BID ml 07/22/18 03/13/22 History nasal spray aerosol (Nasacort) melatonin 3 mg tablet 6 mg PO HS tab 03/25/19 03/13/22 History turmeric root extract 500 mg 500 mg PO DAILY 05/07/19 03/13/22 History capsule dalfampridine 10 mg 10 mg PO BID #180 tab 08/15/21 03/13/22 Rx tablet,extended release,12 hr (Ampyra) modafinil 200 mg tablet (Provigil) 200 mg PO BID #180 tab 09/21/21 03/13/22 Rx desmopressin 0.2 mg tablet 0.4 mg PO HS #180 tab 10/18/21 03/13/22 Rx omeprazole 20 mg capsule,delayed 20 mg PO DAILY #90 cap 10/20/21 03/13/22 Rx release magnesium 500 mg tablet PO 11/17/21 03/13/22 History amlodipine 10 mg tablet 10 mg PO DAILY #90 tab 12/02/21 03/13/22 Rx baclofen 20 mg tablet 40 mg PO TID #540 tab 01/02/22 03/13/22 Rx citalopram 20 mg tablet 20 mg PO DAILY #90 tab 01/03/22 03/13/22 Rx lisinopril 20 mg tablet See Rx Instructions .ROUTE 02/07/22 03/13/22 Rx .COMPLEX #180 tab Exam Const General: cooperative, healthy appearing, comfortable and no acute distress Orientation: alert, awake and oriented x3 HENMT Head: normal to inspection, normocephalic and atraumatic Eyes Conjunctivae: conjunctivae normal Neck Neck: normal visual inspection and supple Resp Effort & Inspection: normal respiratory effort and able to speak in complete sentences Auscultation: clear to auscultation bilaterally Cardio Rate: regular rate Rhythm: regular rhythm GI Palpation: soft and nontender Back/Spine/Pelvis Back: no CVA tenderness and back tenderness (Diffuse mild lumbar, slightly worse on the right) Skin General skin exam: no rashes or lesions noted Neuro General: patient alert, patient awake, patient oriented x3, moves all extremities and no focal motor deficits Cognition: normal cognition Speech: speech normal Motor: other (Baseline bilateral foot drop, otherwise unremarkable.) Sensory Exam: no sensory deficits noted Extrem General: full ROM, capillary refill normal, no pedal edema and no calf tenderness Psych Appearance: grossly normal Mental Status: mental status grossly normal Results Labs Result diagrams: 03/14/22 06:32 03/14/22 06:32 Labs: Laboratory Results - last 24 hr 03/13/22 03/13/22 16:38 16:45 WBC 15.19 H RBC 3.72 L Hgb 11.6 Hct 34.9 L MCV 94 MCH 31.2 MCHC 33.2 RDW 13.3 Plt Count 359 MPV 9.3 Immature Gran % 0.4 Neutrophils % 79.1 Lymphocytes % 12.2 Monocytes % 7.0 Eosinophils % 0.9 Basophils % 0.4 Nucleated RBC % 0.0 Absolute Neutrophils 12.02 H Absolute Lymphocytes 1.85 Absolute Monocytes 1.06 H Absolute Eosinophils 0.14 Absolute Basophils 0.06 COVID-19 Source Nasal/Nares Last Vital Signs Temp 36.6 C 03/13/22 15:31 Pulse 80 03/13/22 15:31 Resp 16 03/13/22 15:31 BP 170/90 H 03/13/22 15:31 Pulse Ox 99 03/13/22 15:31
[2022-03-13 17:16] LABS: ALT 27 U/L (14-59); AST 26 U/L (15-37); Albumin 4.2 g/dL (3.4-5.0); Alkaline Phosphatase 103 U/L (46-116); Anion Gap 8.2 mmol/L (3-11); BUN 14 mg/dL (7-18); Bilirubin, Total 0.3 mg/dL (0.2-1.0); CO2 27.8 mmol/L (21.0-32.0); CREATININE 0.5 mg/dL (0.55-1.02); Calcium 9.1 mg/dL (8.5-10.1); Chloride 97 mmol/L (98-107); Glucose 98 mg/dL (74-106); Potassium 3.8 mmol/L (3.5-5.1); Sodium 133 mmol/L (136-145); Total Protein 7.2 g/dL (6.4-8.2)
[2022-03-13 17:33] LABS: COVID-19 PCR Negative (Negative)
[2022-03-13] MEDS: ACETAMINOPHEN 1,000 MG/100 ML BTL 400 MG IVPB (18:02)
[2022-03-13 18:12] VITALS: BP 147/90; PULSE 79; RESP 19; TEMP 37.3; O2SAT 95
[2022-03-13 18:23] VITALS: BP 147/90; PULSE 79; RESP 19; TEMP 37.3; O2SAT 95
[2022-03-13] MEDS: Docusate Sodium 100 MG CAP PO (21:13)
[2022-03-13] MEDS: Desmopressin 0.2 MG TAB 0.4 MG PO (21:13)
[2022-03-13] MEDS: Melatonin 3 MG TAB 6 MG PO (21:15)
[2022-03-13] MEDS: Baclofen 10 MG TAB 40 MG PO (21:15)
[2022-03-13 22:53] VITALS: BP 121/76; PULSE 89; RESP 18; TEMP 36.6; O2SAT 96
[2022-03-13] MEDS: Ketorolac 15 MG/ML VIAL IVP (22:57)
--- NOTE | 2022-03-14 | DI.US_ITS ---
APPROVED REPORT EXAM: Comprehensive 2D, Doppler, and color-flow Echocardiogram Patient Location: In-Patient Room/Bed: 215 Weaving Inspector: Nena Romano RDCS (AE) Indications: Pre op , Murmur Other Information Study Quality: Adequate. Technically limited study due to inability to position patient exam done sup ine. Conclusion Normal left ventricular wall thickness and chamber size. Estimated ejection fraction is 55 to 60%. Wall motion is normal Normal right ventricular size and systolic function Both atria are normal in size Normal mitral leaflets with mild systolic prolapse. There is mild to moderate eccentric mitral regur gitation There are no additional structural or hemodynamically significant valvular abnormalities Estimated right ventricular systolic pressure is 23 mmHg Wall motion Left Ventricle The left ventricle is normal size. The left ventricular systolic function is normal. The left ventric ular ejection fraction is within the normal range. There is normal left ventricular wall thickness. T here is normal LV segmental wall motion. There is no ventricular septal defect visualized. LVEF is 58 %. Right Ventricle The right ventricle is normal size. The right ventricular systolic function is normal. The RVSP is 23 .0 mmHg. Atria The left atrium size is normal. The right atrium size is normal. The interatrial septum is intact wit h no evidence for an atrial septal defect. Aortic Valve The aortic valve is normal in structure. Aortic valve is trileaflet. There is no aortic valvular sten osis. No aortic regurgitation is present. Mitral Valve Mitral valve is normal in structure. No evidence of mitral valve stenosis. Mild to moderate mitral re gurgitation. Mitral regurgitation jet is eccentrically directed. Mild mitral valve prolapse. Tricuspid Valve The tricuspid valve is normal in structure. There is no tricuspid valve stenosis. Trace tricuspid reg urgitation. Pulmonic Valve The pulmonary valve is normal in structure. There is no pulmonic valvular stenosis. There is no pulmo aylin valvular regurgitation. Great Vessels The aortic root is normal in size. The ascending aorta is normal in size. Aortic arch is not well vis ualized. IVC is normal in size and collapses >50% with inspiration. Pericardium There is no pericardial effusion. 2D Dimensions IVSD d PLAX 1.00 cm F: 0.6-1.0 LV Vol A2C d MOD 64.3 mL LVPW d PLAX 1.00 cm F: 0.6 - 1.0 LV Vol A4C d MOD 108.7 mL LVID d PLAX 4.20 cm F: 3.8 - 5.2 LA vol/ BSA A4C s A-L 18.8 mL/m2 LVDs 2.85 cm F: 2.2 - 3.5 LA Area A4C s MOD 12.20 cm2 Ao Root d 3.26 cm F: 2.7 - 3.3 LV EF A4C MOD 58.0 % RA Area A4C 9.12 cm2 LV EF A2C MOD 59.4 % RA Vol/ BSA A4C s A-L 11.2 mL/m2 LV EF Biplane MOD 56.7 % Ao Asc Diam d 3.33 cm F: 2.3 - 3.1 SV 47.67 mL LV EF Teichholz 60.1 % SV Index 30.67 mL/m2 LVEF (Wiley's) 56.67 % F: 54 - 74 LV Volume 69.13 mL F: 46 - 106 LV Volume Index 44.60 mL/m2 F: 29 - 61 LV Vol Biplane MOD 84.1 mL FS 31.70 % M-Mode TAPSE 3.29 cm (M/F) >1.7 LV Diastology MV E' medial 0.121 (>0.07 m/s) E/A Ratio 0.9 LV E/e MED 7.10 (<14) MV E Vmax 0.86 (0.4-1.3 m/s) MV E' lateral 0.148 (>0.1 m/s) MV A Vmax 1.00 (0.4-1.3 m/s) LV E/e LAT 5.80 (<14) MV E/A Ratio 0.82 MV E/E' medial 7.11 MV E/E' lateral 5.82 Aortic Valve LVOT Area 3.23 cm2 AoV Area Vmax 3.01 cm2 LVOT Vmax 1.28 m/s AoV Area/ BSA (Vmax) 1.93 cm2/m2 LVOT Mean Sarkis. 0.75 m/s NIKKY Mean Sarkis. 2.67 cm2 LVOT Peak Grad 6.5 mmHg NIKKY Mean Sarkis. Index 1.72 cm2/m2 LVOT Mean Grad 2.7 mmHg LVOT VTI 0.208 m LVOT Diam s 2.00 cm AoV Vmax 1.37 m/s Velocity Ratio 0.93 AoV Mean Sarkis. 0.91 m/s AoV Peak Grad 7.5 mmHg LVOT SV 66.99 mL AoV Mean Grad 3.9 mmHg AoV VTI 0.248 m AoV Area VTI 2.70 cm2 AoV Area/ BSA (VTI) 1.74 cm/m2 Mitral Valve MV DT 225 (160-240 msec) MV PHT 65 msec MV Area PHT 3.37 cm2 MV VTI 0.269 m MV Area VTI 2.49 (4.0-6.0 cm2) Pulmonary Valve PV Vmax 0.93 (0.5-1.5 m/s) RVOT Peak Gr. 2.17 mmHg PV Peak Grad 3.5 mmHg RVOT Mean Gr. 1.05 mmHg PV Mean Grad 1.9 mmHg RVOT VTI 0.131 m PV VTI 0.157 m RVOT Vmax 0.74 m/s Tricuspid Valve TR Peak Grad 20.0 mmHg TR Vmax 2.24 m/s RA Pressure 3.00 mmHg RVSP (TR) 23.0 mmHg
[2022-03-14] MEDS: ACETAMINOPHEN 1,000 MG/100 ML BTL 400 MG IVPB ×3 (01:24→18:21)
[2022-03-14] MEDS: Normal Saline Flush 10 ML SYR IVP ×3 (02:07→18:22)
[2022-03-14 07:03] LABS: Abs Immature Grans 0.03 10^3/uL (0.0-0.06); Absolute Basophil Count 0.04 10^3/uL (0.0-0.2); Absolute Eosinophil Count 0.11 10^3/uL (0.0-0.7); Absolute Lymphocyte Count 1.21 10^3/uL (1.2-3.4); Absolute Monocyte Count 1.07 10^3/uL (0.1-0.8); Absolute Neutrophil Count 7.52 10^3/uL (1.2-6.7); Basophils % 0.4; Eosinophils % 1.1; HCT 36.9 % (36.0-46.0); Immature Grans % 0.3; Lymphocytes % 12.1; MCH 30.7 pg (27.0-33.0); MCHC 32.5 % (32.0-36.0); MCV 94 fL (80-95); MPV 9.6 fL (8.0-11.0); Monocytes % 10.7; Neutrophils % 75.4; Platelet Count 337 10^3/uL (130-400); RBC 3.91 10^6/uL (3.93-5.22); RDW 13.5 % (11.7-14.6); RDW-SD 46.5 fL; WBC 9.98 10^3/uL (4.4-10.8)
--- NOTE | 2022-03-14 07:06 | W.ORTHOCONSU ---
Date of service: 03/13/22 Time of Service: 16:40 History of Present Illness History of Present Illness Chief Complaint: Left Hip Pain Narrative: Steffi is a 56 year old female who I've seen previously for pes planus and other ailments. On 03/13/22 she was at home and went to get up when she fell onto her left side. She had immediate pain and was unable to bear weight. Initially holly went to the [facility] who sent her to the [facility] ED. She was diagnosed with a subcapital femoral neck fracture on the left side. She had no other identified injuries and Ortho was consulted. She reports pain with any attempted internal or external rotation of the hip. She has been able to flex and extedn the hip some but not able to bear weight. She denies any new numbness or tingling but she has been dealing with ongoing back and leg issues. She has known spinal stenosis, and coupled with her Multiple Sclerosis which is stable, she has had significant gait disturbance and ambulatory dysfunction. Over the past 3-6 months she has had worsening pain and burning about the right leg, with some on the left. Additionally, she has developed a foot drop on the right with underlying pes planus for which she is wearing a brace. She is awaiting consultation with neurosurgery. She denies any pain in the left hip prior to this. She is independent with ambulation but does so with a walker at baseline. She denies any major medical changes. No head trauma. Consults Consult date: 03/13/22 Requesting physician: Lowell Tolentino Consult Reason Left hip fracture Assessment and Plan Assessment and plan (1) Closed subcapital fracture of left femur: Status: Acute Assessment and plan: Steffi is a 56 year old female with multiple medical issues including multiple sclerosis, lumbar spinal stenosis, lumbar radiculopathy, neurogenic bladder, and spasticity who suffered a ground level fall with a femoral neck fracture. There is some impaction and valgus angulation of this but also some comminution. I ordered the CT to evaluate the fracture in more detail and it does show some comminution as well as a vertical component of the fracture and very little bone remaining in the femoral head. She does have amublatory dysfunction from the MS and now the worsening lumbar stenosis and radiculopathy, however, she is only 56 and is awaiting neurosurgical intervention. I discussed treatment options and do recommend surgery. Percutaneous screw fixation would be less surgery and would likely secure the fracture. However, this will have a significant complication rate associated with it due to the fracture characteristics. Given her health and weakness and spasiticity and the ongoing back issues, i recommend a hip replacement for the femoral neck fracture. This would provide immediate stability and use. It also has much less concern for hardware failure, AVN, and potential need for future revision. There is a risk of dislocation with BELEN, increased in her given the fracture and her MS and ongoing back issues, therefore I recommended using a dual mobility system. I reviewed the risks of each option and after a thorough discussion, she desires to proceed with BELEN. I reviewed the risks of the procedure to include bleeding, infection, pain, stiffness, hardware failure, prosthetic loosening, dislocation, leg length inequality, damage to muscles and tendons, damage to nerves/vessels, fracture, blood clot. She agreed to proceed. She will be admitted to the medicine service for preoperative evaluation. I will plan for surgery on Sunday and take her on my service at that point. All of her questions were answered. Review of Systems All systems reviewed & are unremarkable except as noted in HPI and below PFSH All Active Problems Discharge planning issues (Acute) Murmur, cardiac (Acute) Closed subcapital fracture of left femur (Acute) Right sided sciatica (Acute) Constipation due to neurogenic bowel (Acute) Lumbosacral radiculopathy (Acute) Spinal stenosis of lumbar region with radiculopathy (Acute) Low back pain (Acute) Hamstring strain (Acute) Synovial cyst of popliteal space (Acute) Syncope (Acute) Left carpal tunnel syndrome (Acute) Atypical presentation of carpal tunnel syndrome I think her symptoms may be more likely to trauma to the radial nerve causing some sensory dysfunction from her frequent falls. She has no evidence of weakness of the wrist extensors or finger extensors. I would just recommend observation however if the patient has increasing symptoms of carpal tunnel on the left side then I would consider injection. I do not see need for any exploration of the radial nerve or the median nerve at this point. Memory loss (Chronic) Status post tonsillectomy and adenoidectomy (Acute) Status post myringotomy with insertion of tube (Acute) Status post bunionectomy (Acute) History of arthroscopy of knee (Acute) Fatigue (Acute) Acquired pes planus of right foot (Acute) Nocturia (Acute) Urge incontinence of urine (Acute 08/08/12) Spasticity (Chronic 05/17/15) Optic neuritis (Acute) Neurogenic bladder (Acute 01/13/16) Multiple sclerosis (Chronic 08/28/11) Foot drop, left (Acute 05/17/15) Essential hypertension (Chronic 09/02/13) Asthma (Acute) Pt denies having asthma Anemia (Acute) Medical History Depression GERD (gastroesophageal reflux disease) Surgical History S/P bunionectomy bilateral S/P left knee arthroscopy partial medial meniscectomy, L S/P myringotomy with insertion of tube x9 S/P ovarian cystectomy S/P tonsillectomy and adenoidectomy Family History Mother , age 76 Diabetes Essential hypertension Asthma Father , age 55 Substance abuse Essential hypertension Hypercholesterolemia Alcohol abuse Brother Alcohol abuse Substance abuse Maternal Grandfather , age 68 Essential hypertension Hyperlipidemia Stroke Liver cancer Paternal Grandfather , age 78 Stomach cancer Maternal Grandmother , age 97 Diabetes Essential hypertension Hyperlipidemia Paternal Grandmother , age 76 No problems noted. Daughter No problems noted. Social History Smoking/Tobacco Use Status: Former Tobacco Use tobacco type: cigarettes Quit Date: 11/12/07 Second Hand Exposure: Yes Smoking risk assessment performed?: Yes Alcohol Intake: current Alcohol Intake frequency: a few times a month Alcohol type: wine Drug use: Daily Substance use type: marijuana Caregiver/Support person: No Household members: spouse Number of Children: 1 Communication Needs: None Do you need help understanding health information?: Never current occupation: [employer] Disability Pets and animals: Yes Pets and animals: cat(s) Do you think of yourself as: straight/heterosexual Current gender identity: female What is your relationship status?: How often do you talk on the phone with friends or family?: never How often do you get together with friends or relatives?: never Do you belong to any clubs or organized social groups?: no Panel score (0-1 are the most socially isolated patients): 1 What type of physical activity do you participate in: none Veda/Buddhist: None Special veda needs: No Seatbelt use: always Helmet use: Yes Helmet use: sometimes Drive intox or ride w/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 NAD. AAOx3. The left leg had no obvious skin defects. She is able to move the leg but does with limitations and no rotation of the hip. Significant pain with any IR/ER of the hip. Weak ADF/APF/EHL/FHL. SILT DP/SP/Tib. No pain to palpation of the diestal femur, knee, leg, or ankle. Results Last Vital Signs Temp 36.6 C 03/13/22 22:53 Pulse 89 03/13/22 22:53 Resp 18 03/13/22 22:53 BP 121/76 03/13/22 22:53 Pulse Ox 96 03/13/22 22:53 Labs Result diagrams: 03/14/22 06:32 03/14/22 06:32 Labs: Laboratory Results - last 24 hr 03/13/22 03/13/22 03/13/22 16:38 16:38 16:45 WBC 15.19 H RBC 3.72 L Hgb 11.6 Hct 34.9 L MCV 94 MCH 31.2 MCHC 33.2 RDW 13.3 Plt Count 359 MPV 9.3 Immature Gran % 0.4 Neutrophils % 79.1 Lymphocytes % 12.2 Monocytes % 7.0 Eosinophils % 0.9 Basophils % 0.4 Nucleated RBC % 0.0 Absolute Neutrophils 12.02 H Absolute Lymphocytes 1.85 Absolute Monocytes 1.06 H Absolute Eosinophils 0.14 Absolute Basophils 0.06 Sodium 133 L Potassium 3.8 Chloride 97 L Carbon Dioxide 27.8 Anion Gap 8.2 BUN 14 Creatinine 0.5 L Estimated GFR/1.73 m2 >= 60.00 Glucose 98 Calcium 9.1 Total Bilirubin 0.3 AST 26 ALT 27 Alkaline Phosphatase 103 Total Protein 7.2 Albumin 4.2 COVID-19 Source Nasal/Nares SARS-CoV-2 (PCR) Negative Imaging Imaging Studies: X-ray of the left hip and pelvis demonstrates an impacted subcapital femoral neck fracture. There appears to be some stepoff on the AP and some comminution. The lateral shows some possibly mild translation posteriorly without significant angulation. No significant arthritis ut apparent osteopenia by appearance. CT of the left hip. This shows the proximal femoral fracture. There is an oblique fracture running vertically into the fracture with some comminution. There is impaction and valgus angulation. There was minimal bone remaining in the head component.
[2022-03-14 07:16] LABS: Anion Gap 9.3 mmol/L (3-11); BUN 11 mg/dL (7-18); CO2 25.7 mmol/L (21.0-32.0); CREATININE 0.7 mg/dL (0.55-1.02); Calcium 8.9 mg/dL (8.5-10.1); Chloride 97 mmol/L (98-107); Glucose 122 mg/dL (74-106); Potassium 3.8 mmol/L (3.5-5.1); Sodium 132 mmol/L (136-145)
[2022-03-14] MEDS: Prochlorperazine 10 MG/2 ML VIAL IVP (07:33)
[2022-03-14] MEDS: Normal Saline 50 ML 10 ML IVPB (07:39)
[2022-03-14 08:34] VITALS: BP 148/89; PULSE 86; RESP 16; TEMP 36.5; O2SAT 96
[2022-03-14] MEDS: Normal Saline 500 ML 30 ML IV (10:04)
--- NOTE | 2022-03-14 10:53 | DI.CT_ITS ---
Exam(s) CT LOWER EXTREMITY LT WO EXAM: CT LOWER EXTREMITY LT WO CLINICAL HISTORY: left proximal femur fracture. TECHNIQUE: Imaging Protocol: Axial computed tomography images with coronal and sagittal reformatted images were created and reviewed. CONTRAST MATERIAL: None COMPARISON: CR XR HIP LT COMPLETE AP PELVIS from 03/13/2022 FINDINGS: There is an acute appearing oblique subcapital fracture of the left hip with mild impaction. There i s no evidence of fracture of the acetabular. There does not appear to be a prominent hip joint effus ion nor hematoma. No osseous lesion evident. IMPRESSION: Left hip subcapital fracture as described above. RADIATION DOSE DELIVERED: 321.15mGy.cm Total DLP DATA REPOSITORY: All CT scans at this facility are submitted to the National Radiology Data Registry (NRDR) Dose Index Registry (DIR) with the [employer] (ACR). RADIATION OPTIMIZATION: All CT scans at this facility use at least one of these dose optimization te chniques: automated exposure control; mA and/or kV adjustment per patient size (includes targeted exa ms where dose is matched to clinical indication); or iterative reconstruction.
--- NOTE | 2022-03-14 11:05 | DI.RAD_ITS ---
Exam(s) XR CHEST 1V IN DI DEPT EXAM: XR CHEST 1V IN DI DEPT CLINICAL HISTORY: pre op. TECHNIQUE: 2D digital imaging was performed. COMPARISON: No exams were available for comparison FINDINGS: Single AP portable view. Mild-moderate scoliosis in the thoracic spine convex right noted. Lungs are clear. No infiltrates nor obvious pleural effusions. IMPRESSION: No acute pulmonary findings on this single AP portable view of the chest. DATA REPOSITORY: RADIATION DOSE DELIVERED: All CT scans at this facility use at least one of these dose optimization techniques: automated exposure control; mA and/or kV adjustment per patient size (includes targeted e xams where dose is matched to clinical indication); or iterative reconstruction.
--- NOTE | 2022-03-14 11:31 | PGE_ITS ---
Date of Service Date of service: 03/14/22 Time of Service: 11:15 Assessment and Plan Assessment and plan (1) Closed subcapital fracture of left femur: Status: Acute Assessment and plan: orthopedics consulted, plan for OR tomorrow after equipment secured she is cleared for surgical repair. routine pre-operative care: CBC and BMP completed Will order: EKG, chest X-ray, Type and Screen and INR pain management: Controled with present management Will conitnue APAP and Ketorolac incentive spirometry teds, scds (2) Spasticity: Status: Chronic Assessment and plan: Will continue baclofen (3) Essential hypertension: Status: Chronic Assessment and plan: will monitor and continue home medications (4) Multiple sclerosis: Status: Chronic Assessment and plan: stable continue home medications (5) Constipation due to neurogenic bowel: Status: Acute Assessment and plan: bowel management (6) Murmur, cardiac: Status: Acute Assessment and plan: echo: Conclusion Normal left ventricular wall thickness and chamber size.? Estimated ejection fraction is 55 to 60%.? Wall motion is normal Normal right ventricular size and systolic function Both atria are normal in size Normal mitral leaflets with mild systolic prolapse.? There is mild to moderate eccentric mitral regurgitation There are no additional structural or hemodynamically significant valvular abnormalities Estimated right ventricular systolic pressure is 23 mmHg (7) Discharge planning issues: Status: Acute Assessment and plan: likely will need swing level rehab prior to returning home. I have independently examined patient and agree with documentation assessment and plan discussed with DR Tucker Subjective Subjective Patient reports: no new complaints, still having pain, tolerating a regular diet, flatus and bowel movement; denies diarrhea, nausea, vomiting, shortness of breath or fever Interval history since last seen: Patient denies history of PVD or heart disease, denies chest pain, palpitation dizziness or shortness of breath. Exam Narrative Exam Narrative: Patient transferring to stretcher during first encounter, cooperative; c/o of increased discomfort to right calf during transfer Const General: cooperative and comfortable Orientation: alert, awake and oriented x3 HENMT Head: normal to inspection, normocephalic and atraumatic Eyes Conjunctivae: conjunctivae normal Neck Neck: normal visual inspection, trachea midline and supple Chest Chest: normal inspection of the chest Resp Effort & Inspection: normal respiratory effort and able to speak in complete se ntences Auscultation: clear to auscultation bilaterally Cardio Jugular venous pressure: no JVD Rate: regular rate Rhythm: regular rhythm Heart Sounds: S1 normal, S2 normal and murmur systolic at the apex Pulses: brachial pulses present and dorsalis pedis present GI Inspection: normal to inspection and non-distended Palpation: soft and nontender Auscultation: normoactive bowel sounds General: No CVA tenderness and other (Miller catheter in place) Back/Spine/Pelvis Back: no CVA tenderness and back tenderness (Diffuse mild lumbar, slightly worse on the right) Skin General skin exam: no rashes or lesions noted Neuro General: patient alert, patient awake, patient oriented x3, moves all extremities and no focal motor deficits Cognition: normal cognition Speech: speech normal Motor: other (Baseline bilateral foot drop, accentuated in the right foot) Sensory Exam: no sensory deficits noted Extrem General: full ROM, capillary refill normal and no pedal edema Psych Appearance: grossly normal Mental Status: mental status grossly normal Speech and Movement: speech clear Mood: congruent mood Affect: normal affect Attitude: cooperative Thought Process: normal Thought Content: normal Insight: insight good Objective Last Vital Signs Temp 97.7 F 03/14/22 08:34 Pulse 86 03/14/22 08:34 Resp 16 03/14/22 08:34 BP 148/89 H 03/14/22 08:34 Pulse Ox 96 03/14/22 08:34 Laboratory Results - last 24 hr 03/13/22 03/13/22 03/13/22 16:38 16:38 16:45 WBC 15.19 H RBC 3.72 L Hgb 11.6 Hct 34.9 L MCV 94 MCH 31.2 MCHC 33.2 RDW 13.3 Plt Count 359 MPV 9.3 Immature Gran % 0.4 Neutrophils % 79.1 Lymphocytes % 12.2 Monocytes % 7.0 Eosinophils % 0.9 Basophils % 0.4 Nucleated RBC % 0.0 Absolute Neutrophils 12.02 H Absolute Lymphocytes 1.85 Absolute Monocytes 1.06 H Absolute Eosinophils 0.14 Absolute Basophils 0.06 Sodium 133 L Potassium 3.8 Chloride 97 L Carbon Dioxide 27.8 Anion Gap 8.2 BUN 14 Creatinine 0.5 L Estimated GFR/1.73 m2 >= 60.00 Glucose 98 Calcium 9.1 Total Bilirubin 0.3 AST 26 ALT 27 Alkaline Phosphatase 103 Total Protein 7.2 Albumin 4.2 COVID-19 Source Nasal/Nares SARS-CoV-2 (PCR) Negative 03/14/22 03/14/22 06:32 06:32 WBC 9.98 RBC 3.91 L Hgb 12.0 Hct 36.9 MCV 94 MCH 30.7 MCHC 32.5 D RDW 13.5 Plt Count 337 MPV 9.6 Immature Gran % 0.3 Neutrophils % 75.4 Lymphocytes % 12.1 Monocytes % 10.7 Eosinophils % 1.1 Basophils % 0.4 Nucleated RBC % 0.0 Absolute Neutrophils 7.52 H Absolute Lymphocytes 1.21 Absolute Monocytes 1.07 H Absolute Eosinophils 0.11 Absolute Basophils 0.04 Sodium 132 L Potassium 3.8 Chloride 97 L Carbon Dioxide 25.7 Anion Gap 9.3 BUN 11 Creatinine 0.7 Estimated GFR/1.73 m2 >= 60.00 Glucose 122 H Calcium 8.9 Total Bilirubin AST ALT Alkaline Phosphatase Total Protein Albumin COVID-19 Source SARS-CoV-2 (PCR)
--- NOTE | 2022-03-14 12:32 | PDOC.CMIN ---
- If Service Date Differs Date of service: 03/14/22 Time of Service: 12:32 Care Management Initial Assess REASON FOR HOSPITALIZATION:: Left Hip Fracture PAST MEDICAL HISTORY/PAST SURGICAL HISTORY:: All Active Problems. Closed subcapital fracture of left femur (Acute). Right sided sciatica (Acute). Constipation due to neurogenic bowel (Acute). Lumbosacral radiculopathy (Acute). Spinal stenosis of lumbar region with radiculopathy (Acute). Low back pain (Acute). Hamstring strain (Acute). Synovial cyst of popliteal space (Acute). Syncope (Acute). Left carpal tunnel syndrome (Acute). Atypical presentation of carpal tunnel syndrome I think her symptoms may be more likely to trauma to the radial nerve causing some sensory dysfunction from her frequent falls. She has no evidence of weakness of the wrist extensors or finger extensors. I would just recommend observation however if the patient has increasing symptoms of carpal tunnel on the left side then I would consider injection. I do not see need for any exploration of the radial nerve or the median nerve at this point. Memory loss (Chronic). Status post tonsillectomy and adenoidectomy (Acute). Status post myringotomy with insertion of tube (Acute). Status post bunionectomy (Acute). History of arthroscopy of knee (Acute). Fatigue (Acute). Acquired pes planus of right foot (Acute). Nocturia (Acute). Urge incontinence of urine (Acute 08/08/12). Spasticity (Chronic 05/17/15). Optic neuritis (Acute). Neurogenic bladder (Acute 01/13/16). Multiple sclerosis (Chronic 08/28/11). Foot drop, left (Acute 05/17/15). Essential hypertension (Chronic 09/02/13). Asthma (Acute). Pt denies having asthma. Anemia (Acute). Medical History. Depression. GERD (gastroesophageal reflux disease). Surgical History. S/P bunionectomy. bilateral. S/P left knee arthroscopy. partial medial meniscectomy, L. S/P myringotomy with insertion of tube. x9. S/P ovarian cystectomy. S/P tonsillectomy and adenoidectomy PREVIOUS FUNCTIONAL STATUS/SOCIAL/FAMILY SUPPORTS:: Mina lives in [place] with her , Pepe. They have one daughter, Syl, who lives in [place], [place]. 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 She later worked at the [employer] at [employer], but lost her job at the beginning of the Covid pandemic. She hopes to work again, after an upcoming surgery. She is independent with ADL's. CURRENT FUNCTIONAL STATUS:: Steffi was sitting up in bed when CM met with her. She stated that per MD, she will go to the OR tomorrow for a hip replacement. Hardware had to be ordered, which has delayed her surgery until tomorrow. She is comfortable with the plan. She was pleasant and engaged well in conversation. She stated that she is hoping to return home shortly after surgery, within a few days. CM will continue to follow. ADVANCE DIRECTIVES:: On file, Pepe listed as agent. Has patient been provided with info about the portal/API?: Yes Did the patient sign up for the portal?: Yes (active) CODE STATUS:: Full Code INSURANCE COVERAGE / FINANCIAL ISSUES:: [facility] CURRENT HOME/COMMUNITY SERVICES/EQUIPMENT:: No current services or equipment. Steffi has worked with [facility] in the past to help obtain work. PRIMARY CARE PHYSICIAN:: Elizabeth Nunn POTENTIAL DISCHARGE NEEDS:: Evaluations for further needs, follow up appointments. PATIENT/FAMILY EDUCATION NEEDS:: Review discharge instructions and limitations, discussion of self care needs including ask me three. ANTICIPATED BARRIERS TO DISCHARGE:: None identified. TRANSPORTATION:: To be determined by disposition. PLAN:: Anticipate Steffi will return home once medically cleared. She will be driven home via private vehicle by family. She will follow up with her PCP and discharge plan of care. CM will continue to follow.
[2022-03-14 13:02] LABS: INR 1.1 (0.9-1.1); Prothrombin Time 11.5 sec (9.3-11.0)
--- NOTE | 2022-03-14 14:27 | CHAPLAIN ---
Mina was resting in bed and using her iPad when I visited. She her had been into visit and left recently. Mina seems to be comfortable and according to Morning Meeting discussion, she will go to the OR tomorrow for a repair of a left hip fracture.
[2022-03-14 16:09] VITALS: BP 166/88; PULSE 90; RESP 18; TEMP 37.8; O2SAT 96
[2022-03-14] MEDS: Docusate Sodium 100 MG CAP PO (20:03)
[2022-03-14] MEDS: Melatonin 3 MG TAB 6 MG PO (22:05)
[2022-03-14 23:45] VITALS: BP 136/81; PULSE 90; RESP 17; TEMP 37.2; O2SAT 90
[2022-03-15] VITALS (17 sets, daily range): BP systolic 110–169; BP diastolic 69–95; PULSE 74–105; RESP 12–21; TEMP 35.9–37.4; O2SAT 92–97; BMI 25.4
[2022-03-15] MEDS: ACETAMINOPHEN 1,000 MG/100 ML BTL 400 MG IVPB ×3 (02:20→18:37)
[2022-03-15] MEDS: Lactated Ringers 1,000 ML 80 ML IV ×3 (04:29→22:32)
--- NOTE | 2022-03-15 08:13 | W.ANESPRE ---
General Info Date of Service Date Performed: 03/15/22 Height: 5 ft Weight: 58.967 kg Body Mass Index (BMI): 25.4 Surgical Procedure: Operation Date: 03/15/22 16:05 Proposed Procedure Side Surgeon p Hip Total Hip Anterior Left Joseph Swan MD Meds Allergies and Home Medications Allergies Allergy/AdvReac Type Severity Reaction Status Date / Time Sulfa (Sulfonamide Allergy Intermediate SKIN RASH Verified 03/13/22 15:35 Antibiotics) Penicillins Allergy Unknown RASH Verified 03/13/22 15:35 chlorthalidone AdvReac Severe Hyponatremi Verified 03/13/22 15:35 a codeine AdvReac Unknown NAUSEA Verified 03/13/22 15:35 Home Medication Medication Instructions Recorded Lactobacillus comb 1 cap PO DAILY 02/04/13 no.1-LTZ-[id number] 300 million cell-250 mg capsule (Probiotic and Acidophilus) diphenhydramine 25 1 tab PO HS 02/04/13 mg-acetaminophen 500 mg tablet (Tylenol PM Extra Strength) pediatric multivit no.17-ferrous 2 tab PO DAILY tab.chew 02/04/13 fumarate 15 mg iron chewable tablet timolol maleate (PF) 0.25 % eye 1 drp OPHTHALMIC DAILY drp 02/04/13 drops in a dropperette (Timoptic Ocudose (PF)) vitamin B comp and C no.3 15 mg-10 1 cap PO DAILY 02/04/13 mg-50 mg-5 mg-300 mg capsule (B Complex Plus Vitamin C) calcium carbonate 600 mg-vitamin 1 ea PO DAILY 01/26/15 D3 5 mcg (200 unit) tablet cholecalciferol (vitamin D3) 125 5,000 unit PO DAILY 01/26/15 mcg (5,000 unit) tablet glucosamine sulfate 250 1 ea PO BID 01/26/15 mg-chondroitin sulfate A 200 mg capsule triamcinolone acetonide 55 mcg 1 spray JAMEL BID ml 07/22/18 nasal spray aerosol (Nasacort) melatonin 3 mg tablet 6 mg PO HS tab 03/25/19 turmeric root extract 500 mg 500 mg PO DAILY 05/07/19 capsule dalfampridine 10 mg 10 mg PO BID #180 tab 08/15/21 tablet,extended release,12 hr (Ampyra) modafinil 200 mg tablet (Provigil) 200 mg PO BID #180 tab 09/21/21 desmopressin 0.2 mg tablet 0.4 mg PO HS #180 tab 10/18/21 omeprazole 20 mg capsule,delayed 20 mg PO DAILY #90 cap 10/20/21 release magnesium 500 mg tablet PO 11/17/21 amlodipine 10 mg tablet 10 mg PO DAILY #90 tab 12/02/21 baclofen 20 mg tablet 40 mg PO TID #540 tab 01/02/22 citalopram 20 mg tablet 20 mg PO DAILY #90 tab 01/03/22 lisinopril 20 mg tablet See Rx Instructions .ROUTE 02/07/22 .COMPLEX #180 tab Current Visit Medications: Current Medications Generic Name Dose Route Start Last Admin Trade Name Freq PRN Reason Stop Dose Admin Dimethicone/Zinc Oxide 0 gm 03/13/22 17:03 Ronit Protect Cream 142 Gm Tube TP PRN PRN Docusate Sodium 100 mg 03/13/22 20:00 03/15/22 07:36 Docusate Sodium 100 Mg Cap PO Not Given BID WAYNE Fluticasone Propionate 0 gm 03/15/22 08:30 Fluticasone Nasal [place] 16 Gm Btl NS DAILY WAYNE Hydromorphone HCl 0.5 mg 03/14/22 07:30 Hydromorphone 2 Mg/Ml Syr IVP Q4H PRN PRN Acetaminophen 1,000 mg in 100 mls @ 400 mls/hr 03/13/22 18:00 03/15/22 02:40 Ofirmev IVPB Infused Q8H WAYNE Infusion Sodium Chloride 500 mls @ 0 mls/hr 03/14/22 02:08 03/14/22 11:08 Saline 500ml Bag IV 0 mls/hr PRN PRN Infusion As Directed Sodium Chloride 50 mls @ 0 mls/hr 03/14/22 07:28 03/14/22 08:45 Saline 50ml Bag IVPB 0 mls/hr PRN PRN Infusion As Directed Tranexamic Acid 1,000 mg/ 60 mls @ 360 mls/hr 03/15/22 08:00 Sodium Chloride IVPB 03/15/22 18:00 PREOP WAYNE Ringer's Solution 1,000 mls @ 80 mls/hr 03/15/22 04:30 03/15/22 04:29 IV 80 mls/hr INFUSION WAYNE Administration IV Miscellaneous Supplies 1 each 03/13/22 16:45 Iv Access IV DIRECTED [facility] Ketorolac Tromethamine 15 mg 03/13/22 17:58 03/13/22 22:57 Ketorolac 15 Mg/Ml Vial IVP 03/18/22 17:57 15 mg Q6H PRN PRN Administration Magnesium Hydroxide 30 ml 03/13/22 18:00 Milk Of Magnesia 30 Ml Cup PO DAILY PRN PRN Melatonin 6 mg 03/13/22 22:00 03/14/22 22:05 Melatonin 3 Mg Tab PO 6 mg HS WAYNE Administration Pt's Own 1 each 03/13/22 20:00 03/15/22 07:41 Dalfampridine ( PO Not Given Ampyra) 10mg Tablet BID [facility] Patient's Own 1 each 03/14/22 22:00 03/14/22 22:05 Medication ( PO 1 each Diphenhydramine- HS WAYNE Administration Acetaminophen [ Tylenol Pm Extra Strength]) Patient's Own 1 each 03/14/22 07:30 03/15/22 07:40 Medication ( PO Not Given Omeprazole 20mg Cap) DAILY@0730 WAYNE Patient's Own 2 each 03/14/22 08:30 03/15/22 07:35 Medication (Baclofen PO 2 each 20mg Tab) TID WAYNE Administration Patient's Own 1 each 03/14/22 08:00 03/15/22 07:40 Medication ( PO Not Given Modafinil 200 Mg Tab 0800,1400 WAYNE ) Patient's Own 2 each 03/14/22 22:00 03/14/22 20:04 Medication ( PO 2 each Desmopressin 0.2 Mg HS WAYNE Administration Tab) Patient's Own 1 each 03/14/22 21:00 03/14/22 20:04 Medication ( PO 1 each Citalopram 20mg) DAILY@2100 WAYNE Administration Patient's Own 1 each 03/14/22 21:00 03/14/22 20:04 Medication ( PO 1 each Lisinopril 40mg) DAILY@2100 WAYNE Administration Patient's Own 1 each 03/14/22 21:00 03/14/22 20:04 Medication ( PO 1 each Amlodipine 10 Mg Tab DAILY@2100 WAYNE Administration ) Patient's Own 1 each 03/14/22 14:00 05/03/22 13:15 Medication ( PO 1 each Cholecalciferol ( DAILY@1400 WAYNE Administration Vitamin D3) 5000 Unit Tablet) Patient's Own 1 each 03/14/22 14:00 03/14/22 13:14 Medication ( PO 1 each Lactobacillus DAILY@1400 WAYNE Administration Acidophilus 100mill Cfu Tab) Patient's Own 2 each 03/14/22 14:00 03/14/22 13:15 Medication (Pedi PO 2 each Multivit Chew [ DAILY@1400 WAYNE Administration Flintstones With Iron]) Polyethylene Glycol 17 gm 03/13/22 18:00 Polyethylene Glycol 3350 17 Gm Packet PO BID PRN PRN Prochlorperazine Edisylate 10 mg 03/13/22 17:59 03/14/22 07:33 Prochlorperazine 10 Mg/2 Ml Vial IVP 10 mg Q4H PRN PRN Administration Sodium Chloride 0 ml 03/14/22 01:24 03/14/22 18:22 Normal Saline Flush 10 Ml Syr IVP 10 ml PRN PRN Administration PFSH Active Problems Active Problems: Problem Status Onset Code Discharge planning issues Z02.9 Murmur, cardiac R01.1 Closed subcapital fracture of left femur S72.012A Right sided sciatica M54.31 Constipation due to neurogenic bowel K59.00, K59.2 Lumbosacral radiculopathy M54.17 Spinal stenosis of lumbar region with radiculopathy M48.061, M54.16 Low back pain M54.5 Hamstring strain S76.319A Synovial cyst of popliteal space M71.20 Syncope R55 Left carpal tunnel syndrome G56.02 Memory loss R41.3 Status post tonsillectomy and adenoidectomy Z90.89 Status post myringotomy with insertion of tube Z96.22 Status post bunionectomy Z98.890 History of arthroscopy of knee Z98.890 Fatigue R53.83 Acquired pes planus of right foot M21.41 Nocturia R35.1 Urge incontinence of urine 08/08/12 N39.41 Spasticity 05/17/15 R25.2 Optic neuritis H46.9 Neurogenic bladder 01/13/16 N31.9 Multiple sclerosis 08/28/11 G35 Foot drop, left 05/17/15 M21.372 Essential hypertension 09/02/13 I10 Asthma J45.909 Anemia D64.9 Medical History Medical History Depression GERD (gastroesophageal reflux disease) Surgical History Surgical History S/P bunionectomy bilateral S/P left knee arthroscopy partial medial meniscectomy, L S/P myringotomy with insertion of tube x9 S/P ovarian cystectomy S/P tonsillectomy and adenoidectomy Tobacco Smoking/Tobacco Use Status: Former Tobacco Use Passive smoking exposure: Yes Second hand exposure: Yes Alcohol Alcohol Intake: current Alcohol intake frequency: a few times a month Alcohol type: wine Substance Use Substance use: Daily Substance use type: marijuana Vital Signs and Lab Results Vital Signs Most Recent Vital Signs in EMR: Most Recent Vital Signs Temp Pulse Resp BP Pulse Ox 36.4 C L 94 H 16 158/95 H 93 03/15/22 07:25 03/15/22 07:25 03/15/22 07:25 03/15/22 07:25 03/15/22 07:25 Lab Results Result Diagrams: 03/14/22 06:32 03/14/22 06:32 Blood Type / Crossmatch: Patient ABO/Rh O Positive 03/14/22 Antibody Screen NEGATIVE 03/14/22 Complete Blood Count: White Blood Count 9.98 10^3/uL (4.4-10.8) 03/14/22 06:32 03/14/22 Red Blood Count 3.91 10^6/uL (3.93-5.22) L 03/14/22 06:32 03/14/22 Hemoglobin 12.0 g/dL (11.2-15.7) 03/14/22 06:32 03/14/22 Hematocrit 36.9 % (36.0-46.0) 03/14/22 06:32 03/14/22 Platelet Count 337 10^3/uL (130-400) 03/14/22 06:32 03/14/22 Complete Metabolic Panel: Sodium Level 132 mmol/L (136-145) L 03/14/22 06:32 03/14/22 Potassium Level 3.8 mmol/L (3.5-5.1) 03/14/22 06:32 03/14/22 Chloride Level 97 mmol/L (98-107) L 03/14/22 06:32 03/14/22 Carbon Dioxide Level 25.7 mmol/L (21.0-32.0) 03/14/22 06:32 03/14/22 Blood Urea Nitrogen 11 mg/dL (7-18) 03/14/22 06:03/14/22 Creatinine 0.7 mg/dL (0.55-1.02) 03/14/22 06:32 03/14/22 Estimated GFR/1.73 m2 >= 60.00 (mL/min/1.73m2) 03/14/22 06:03/14/22 Calcium Level 8.9 mg/dL (8.5-10.1) 03/14/22 06:03/14/22 Albumin 4.2 g/dL (3.4-5.0) 03/13/22 16:38 03/13/22 Glucose Level 122 mg/dL (74-106) H 03/14/22 06:32 03/14/22 Liver Function Panel: Alanine Aminotransferase (ALT/SGPT) 27 U/L (14-59) 03/13/22 16:38 03/13/22 Aspartate Amino Transf (AST/SGOT) 26 U/L (15-37) 03/13/22 16:38 03/13/22 Coagulation Panel: INR International Normalized Ratio 1.1 (0.9-1.1) 03/14/22 12:30 03/14/22 Prothrombin Time 11.5 sec (9.3-11.0) H 03/14/22 12:30 03/14/22 Cardiac Panel: No Data to Display Arterial Blood Gas: No Data to Display Venous Blood Gas: No Data to Display Pancreas Panel: No Data to Display Thyroid Panel: No Data to Display Infectious Disease: Coronavirus (COVID-19)(PCR) Negative (Negative) 03/13/22 16:45 03/13/22 Coronavirus 2019 Source Nasal/Nares 03/13/22 16:45 03/13/22 Blood Cultures: No Data to Display Toxicology Panel: No Data to Display Imaging and Studies Imaging and Studies Study information below may be from another EMR and interpreted by another provider. Please see original notes in EMR for more complete details. Echocardiogram Summary: Conclusion Normal left ventricular wall thickness and chamber size. Estimated ejection fraction is 55 to 60%. Wall motion is normal Normal right ventricular size and systolic function Both atria are normal in size Normal mitral leaflets with mild systolic prolapse. There is mild to moderate eccentric mitral regurgitation There are no additional structural or hemodynamically significant valvular abnormalities Estimated right ventricular systolic pressure is 23 mmHg Anesthesia Assessment and Plan Anesthesia History Personal History: No History of Anesthesia Complications Family History: No Family History of Anesthesia Complications Exercise Tolerance Exercise Tolerance: Metabolic Equivalents>4 Cardiac & Pulmonary Exam Cardiac Exam: Normal S1/S2 Heart Sounds Pulmonary Exam: Clear Bilateral Breath Sounds Implantable Cardiac Device Does patient have a Pacemaker or an ICD?: No Airway Exam Known Difficult Airway: No Mallampati Class: 1 Mouth Opening: Normal (> 3cm) Thyromental Distance: Greater than 3 cm Neck Range of Motion: Full ROM Neck Circumference: Normal Teeth Condition: Normal Dentition ASA Classification ASA Score: ASA 3 Emergency Case?: No NPO Status NPO Status: NPO Clears >2 hours, Solids >8 hours Anesthesia Plan Resuscitation Status: Full Code Anesthesia Technique: General Anesthesia Airway Planned: Endotracheal Tube Monitors Used: Standard Monitors Preoperative Comments:: Patient's last dose of Baclofen 15:15, plan to intubate on bed.
[2022-03-15] MEDS: HYDROmorphone 2 MG/ML SYR 0.5 MG IVP (09:37)
[2022-03-15] MEDS: Fluticasone NASAL SPRAY 16 GM BTL NS (09:38)
--- NOTE | 2022-03-15 12:04 | W.PM.PROGNOT ---
Date of Service Date of service: 03/15/22 Time of Service: 12:04 Assessment and Plan Assessment and plan (1) Closed subcapital fracture of left femur: Status: Acute Assessment and plan: orthopedics consulted, plan for OR this afternoon she is cleared for surgical repair. routine pre-operative care: pain management: Controlled with present management Will continue APAP and Ketorolac incentive spirometry teds, scds (2) Murmur, cardiac: Status: Acute Assessment and plan: no chest pain, shortness of breath, edema or other cardiovascular symptoms. no previously known murmur. faint systolic murmur over apex on exam. Echo obtained and findings consistent with physical exam. echo: Conclusion Normal left ventricular wall thickness and chamber size.? Estimated ejection fraction is 55 to 60%.? Wall motion is normal Normal right ventricular size and systolic function Both atria are normal in size Normal mitral leaflets with mild systolic prolapse.? There is mild to moderate eccentric mitral regurgitation There are no additional structural or hemodynamically significant valvular abnormalities Estimated right ventricular systolic pressure is 23 mmHg (3) Spasticity: Status: Chronic Assessment and plan: continue baclofen (4) Essential hypertension: Status: Chronic Assessment and plan: will monitor and continue home medications (5) Multiple sclerosis: Status: Chronic Assessment and plan: stable continue home medications (6) Constipation due to neurogenic bowel: Status: Acute Assessment and plan: bowel management (7) Discharge planning issues: Status: Acute Assessment and plan: likely will need [facility] rehab prior to returning home. discussed with DR Tucker Subjective Subjective Patient reports: no new complaints, voiding w/o difficulty (jovel to gravity ) and afebrile; denies shortness of breath Exam Const General: cooperative, healthy appearing, comfortable and no acute distress Orientation: alert, awake and oriented x3 HENMT Head: normal to inspection, normocephalic and atraumatic Eyes Conjunctivae: conjunctivae normal Neck Neck: normal visual inspection and supple Resp Effort & Inspection: normal respiratory effort and able to speak in complete sentences Auscultation: clear to auscultation bilaterally Cardio Rate: regular rate Rhythm: regular rhythm Heart Sounds: murmur systolic I/, II/ and at the apex GI Palpation: soft and nontender Back/Spine/Pelvis Back: no CVA tenderness and back tenderness (Diffuse mild lumbar, slightly worse on the right) Skin General skin exam: no rashes or lesions noted Neuro General: patient alert, patient awake, patient oriented x3, moves all extremities and no focal motor deficits Cognition: normal cognition Speech: speech normal Motor: other (Baseline bilateral foot drop, otherwise unremarkable.) Sensory Exam: no sensory deficits noted Extrem General: full ROM, capillary refill normal, no calf tenderness, edema and other (foot drop right, trace edema bilaterally ) Psych Appearance: grossly normal Mental Status: mental status grossly normal Objective Last Vital Signs Temp 36.4 C L 03/15/22 07:25 Pulse 94 H 03/15/22 07:25 Resp 16 03/15/22 07:25 BP 158/95 H 03/15/22 07:25 Pulse Ox 93 03/15/22 07:25 Laboratory Results - last 24 hr 03/14/22 03/14/22 12:30 12:30 PT 11.5 H INR 1.1 Patient ABO/Rh O Positive Antibody Screen NEGATIVE
--- NOTE | 2022-03-15 13:45 | CMPROGNOTE_ITS ---
- If Service Date Differs Date of service: 03/15/22 Time of Service: 13:45 Care Management Progress Note S/O: Steffi was sitting up in bed when CM met with her. She stated that she is a little nervous for surgery today, but knows that she is in good hands. Per report, she will go to the OR this afternoon. CM assisted Steffi with finding a mobile home set up person for her phone. She stated that she has been keeping her family informed, and she expects that her will visit today, before her surgery. CM will continue to follow. A: Steffi is a 56 year old female admitted to [facility] on 03/13/22 with a left hip fracture. P: Steffi will go to the OR today for surgery. She will return home once medically cleared by . She will follow up with her PCP and discharge plan of care. Her will drive her home via private vehicle. CM will continue to follow.
--- NOTE | 2022-03-15 15:30 | DI.RAD_ITS ---
Exam(s) XR HIP LT IN OR EXAM: XR HIP LT IN OR CLINICAL HISTORY: subcapital femoral neck fracture on the left side TECHNIQUE: 2D and realtime digital imaging was performed. COMPARISON: No exams were available for comparison FINDINGS: C-arm fluoroscopy was utilized by Dr. Swan during placement of left hip prosthesis. Hard copies show acetabular and femoral components in good position. IMPRESSION: RADIATION DOSE DELIVERED: tanisha Ayoub=3.89 mGy
[2022-03-15] MEDS: ceFAZolin 2 GM/50 ML BAG 200 GM (16:05)
--- NOTE | 2022-03-15 17:33 | W.PM.OP ---
Date of service: 03/15/22 Time of Service: 17:34 Operative Note Operative Note DATE OF PROCEDURE: 03/15/22 PRE-OP DIAGNOSIS: Left Femoral Neck Fracture POST-OP DIAGNOSIS: same PROCEDURE: Left Anterior Total Hip Arthroplasty with Intraoperative Navigation and Dual Mobility Construct SURGEON: Joseph Swan COMMISSIONER PUBLIC WORKS: Abdifatah Aponte ANESTHESIA TYPE: General LMA/ETT Refer to Anesthesia Record ESTIMATED BLOOD LOSS: 300 PATHOLOGY: none sent TOURNIQUET TIME: 0 COMPLICATIONS: None Patient was transported to: PACU Patient's condition: stable Implants: 1. Depuy Bimentum Dual Mobility Acetabular Component, 47mm 2. Depuy Corail 135 degree Short Neck Collared Femoral Stem, Size 12 3. Depuy Altrx Ceramic Femoral Head, Size 28+1mm 4. Depuy Bimentum 28x47 Poly Liner Indications: I have seen Steffi in consultation for a comminuted and dispalced left femoral neck fracture. Given her young age, ongoing back issues, and comminution and displacement of the fracture, I recommended a hip replacement with dual mobility for durability, longevity and immediate rehabilitation. I reviewed the technical features of hip replacement. I explained the risks of the procedure to include, but not limited to, bleeding, infection, pain, stiffness, fracture, damage to nerves and vessels, damage to muscles and tendons, loosening, instability, leg length inequality, need for repeat procedure, blood clot and cardiopulmonary demise. Despite these risks, Steffi elected to proceed. Findings: There was a comminuted fracture of the femoral neck with some extension of the fracture into the lateral femoral head and some mild comminution at the fracture site with displacement. Procedure Description: Steffi was greeted in the preoperative holding area where the correct side was identified and marked. The consent was reviewed with the patient and signed. The history and physical was updated. All questions were answered. She was taken back to the operating room. A general anesthetic was administered. Her feet were wrapped with cast padding and Coban and then placed into the boot liners and then into the boots. Care was taken to protect the skin and make sure the heels were fully down and the boots were stable. The patient was then positioned onto the HANA table. Both legs were held in a neutral position. SCDs were applied. The patient was then slid down onto a peroneal post. Prophylactic antibiotics in the form of Cefazolin were administered. 1g of Tranxemic Acid was given intravenously within 30 minutes of incision. The left leg was then prepped with Chloraprep and draped in a standard fashion. A second prep with Chloraprep was performed prior to placement of a shower-curtain type drape with Iodine impregnated skin protection. A timeout to confirm correct identity, side and site, procedure, allergies, anesthesia, and medical concerns was performed. An obliquely oriented incision was made starting lateral to the ASIS and running distal over the Tensor Fascia Codi (TFL) muscle belly toward the fibular head, approximately 10cm. The skin and soft tissue was dissected sharply, through Liam?s fascia, and to the fascia of the TFL. With the fascia and superior border of the IT band identified, the fascia was incised with a new knife just above any perforators from the IT band. The TFL muscle belly was bluntly dissected away from the fascia and moved laterally. The fat between TFL and rectus was identified to ensure the dissection was not within the TFL. Blunt dissection created space between abductors and the capsule and retractor was placed over the lateral femoral neck. The fibers of the rectus femoris tendon were identified and these were freed from the anterior capsule. A second cobra retractor was placed around the medial femoral neck. The TFL was further retracted laterally to show the deep fascia. Careful dissection through this layer identified three main crossing vessels of the lateral femoral circumflex. These were cauterized in multiple locations and then cut without any noticeable bleeding. The TFL was further released bluntly from the deep fascia to expose anterior hip capsule and fat The Heriberto orthopaedic retractor was then placed beneath the TFL and against sartorius and medial soft tissues to protect and retract the soft tissues. A T-capsulotomy was then performed starting at the superior lateral acetabulum and moving distally to the intertrochanteric ridge. These capsular flaps were tagged with a No. 1 Ethibond and elevated from within. The capsular flaps were released to the shoulder of the lateral neck and to the lesser trochanter to give excellent visualization of the proximal femur. The fracture line is evident with notable posterior lateral displacement of the femoral head and impaction of the femoral head on the neck. Additionally there is a piece of lateral femoral head which was loose from a split going into the lateral portion of the femoral head. A neck osteotomy was performed using an oscillating saw based on preoperative templates. This cut started in the shoulder and of the lateral neck and exited medially. The saw was at all times directed medially to avoid injury to the greater trochanter. Gross traction was applied to the leg and the osteotomy opened. The napkin ring of bone created from the neck cut distal to the fracture was then removed with a rongeur. The femoral head was removed with a corkscrew, making sure to protect the TFL on its exit. Traction was released after head removal. This was measured on the back table to determine the starting reamer size. Portions of the rectus obscuring visualization were minimally elevated off the superior acetabulum. An anterior retractor was placed over the anterior wall between capsule and labrum and attached to the Gripper retraction system. The femur was rotated to 90 degrees and medial capsule was fully released until the lesser trochanter was palpable and visible; the femur was returned to 30 degrees. A posterior retractor was placed similarly between capsule and labrum. This provided excellent visualization. The contents of the cotyloid fossa were removed with electrocautery and the labrum was removed with a knife. Acetabular reaming began with a 43mm reamer. This first reaming was directed anterior to posterior and medial to get down to the true floor. This was inspected and reamed until the true floor was reached. The anterior retractor was then released and entry and exit was provided by traction on the capsular flaps. I then reamed sequentially up to a 47mm reamer where good fit was obtained. The larger reamers were oriented based on anatomical reference of the anterior and lateral preston to ensure proper abduction and anteversion. Positioning and size was confirmed with the fluoroscopy. A 47mm Depuy Bi-Mentum dual mobility acetabular component was selected. The deep tissues were irrigated. The acetabular component was then impacted in a position of about 40-45 degrees of abduction and 15-20 degrees of anteversion, using the patient?s anatomy as the ultimate landmark. Fluoroscopy was used to confirm this. There was excellent linoleum installer of the acetabular component and the inserting handle was removed. A portion of the alexis-articular cocktail was then injected around the acetabulum into the capsule and periosteum. This cocktail consisted of 246mg of Ropivacaine, 0.5mg of Epinephrine, 0.08mg of Clonidine, and 30mg of Ketorolac, diluted to 100cc. The leg was rotated to 120 degrees. Any remaining medial capsule was released until the lesser trochanter was easily palpable. A retractor was placed medially. The lateral capsule was further released into the shoulder to allow access to the greater trochanter. A Frederick retractor was placed over the greater trochanter which allowed the trochanter to flip in front of the capsule for excellent exposure. The leg was brought down into maximal extension and 20 degrees of adduction while ensuring there was no impingement on the acetabulum. Any remnant capsule within the trochanter was released. Piriformis and obturator externis were identified and protected. There was excellent access to the proximal femur. The lateral neck remnant was removed with a rongeur. A blunt canal probe was used to identify the canal and trajectory for later broaching. A box osteotome initiated the broach course. A small curved rasp and a curved curette were used to work laterally. Broaching then began with a size 8 Corail broach. This was inserted manually around the trochanter and into the canal before mallet blows. The broach was seated to the neck cut level based on the neck cut and the preoperative template. Sequential broaching was continued with the [employer] pneumatic broaching device until a tight fit was obtained with good rotational control of the femur. A trial standard short neck was inserted along with a +1 trial dual mobility head. The leg was brought out of extension and adduction and then reduced with traction and internal rotation. The leg was stable anteriorly in a position of 30 degrees of extension and 90 degrees of external rotation. Fluoroscopy was used to ensure there was no fracture and the stem was seated well. Leg lengths were checked with an AP pelvis and pelvic reference points. Daylife navigation system was used to confirm appropriate positioning and leg length and offset. Once content with the desired offset and leg lengths, the leg was brought back into extension, external rotation and adduction. The periosteum and surrounding tissue was injected with remaining portion of the alexis-articular cocktail. The proximal femur was irrigated as well as the deep tissues. The Depuy Corail standard short neck collared stem, size 12, was then manually inserted into the proximal femur making sure to control rotation. It was then malleted into position with light blows, giving breaks to allow bone expansion and decrease risk of fracture. The selected Depuy Altrx Ceramic Head, size 28+1mm, was then inserted into the Bi-Mentum [id number] liner. This was then placed onto the clean and dry trunnion and secured with impaction onto the tapered fit. The leg was brought back out of extension and adduction and reduced with traction and internal rotation. Stability was confirmed with no shuck at 90 degrees of external rotation and 30 degrees of extension. No impingement through range of motion arc. Final x-ray images were obtained with fluoroscopy to confirm adequate positioning and no intraoperative fracture. The deep tissues were thoroughly irrigated with Surgiphor, betadine solution. This was allowed to sit in the wound for 3 minutes before being thoroughly irrigated out with normal saline. The capsule was then reapproximated with the previously placed Ethibond sutures. The TFL fascia was finally closed with a No. 2 Stratafix, barbed suture. Deep tissues were then reapproximated with 0 Vicryl and a running 2-0 Vicryl. The skin was closed with a running 4-0 Monocryl in a subcuticular fashion. This was reinforced with skin glue. A Mepilex silver dressing was applied. At the end of the case, all counts were correct. Steffi was transferred to the hospital bed without difficulty and suffering no apparent complication. tSeffi has a good prognosis. Physical therapy will start today and without restrictions, weight-bearing as tolerated. Aspirin 81mg BID will be used for DVT prophylaxis.
--- NOTE | 2022-03-15 18:17 | W.ANESPOSTOP ---
Postoperative Evaluation Date, Time and Location Date Performed: 03/15/22 Time Performed: 18:17 Patient Location: PACU Vital Signs Most Recent Imported Vital Signs: Most Recent Vital Signs Temp Pulse Resp BP Pulse Ox 36.5 C 94 H 15 139/93 H 95 03/15/22 18:04 03/15/22 18:04 03/15/22 18:04 03/15/22 18:04 03/15/22 18:04 Pain Score Most Recent Pain Score: Most Recent Pain Score Pain Level [Left Pelvis] 0 03/13/22 16:27 Pain Level 3 03/15/22 18:04 Assessment Mental Status: Awake (Alert & Oriented to Patient Baseline) Airway and Respiratory Function: Patent airway with normal (patient baseline) respiratory exam Cardiovascular Function: Hemodynamically Stable Hydration Status: Adequately Hydrated Nausea & Vomiting: No Nausea or Vomiting Pain: Pain is tolerable per patient Peripheral Nerve Block: Patient did not receive a nerve block
[2022-03-15] MEDS: Docusate Sodium 100 MG CAP PO (20:16)
[2022-03-15] MEDS: Melatonin 3 MG TAB 6 MG PO (23:06)
[2022-03-16] MEDS: ceFAZolin 1 GM/50 ML BAG IVPB ×3 (00:24→14:56)
[2022-03-16] MEDS: ACETAMINOPHEN 1,000 MG/100 ML BTL 400 MG IVPB ×2 (02:20→10:08)
[2022-03-16 03:00] VITALS: BP 116/73; PULSE 76; RESP 17; TEMP 37; O2SAT 92
[2022-03-16 07:15] LABS: HCT 28.8 % (36.0-46.0); MCH 31.6 pg (27.0-33.0); MCV 95 fL (80-95); MPV 9.6 fL (8.0-11.0); Platelet Count 300 10^3/uL (130-400); RBC 3.04 10^6/uL (3.93-5.22); RDW 13.4 % (11.7-14.6); RDW-SD 46.1 fL; WBC 10.08 10^3/uL (4.4-10.8)
[2022-03-16 07:24] LABS: HGB 9.6 g/dL (11.2-15.7); MCHC 33.3 % (32.0-36.0)
[2022-03-16] MEDS: Docusate Sodium 100 MG CAP PO (07:25)
[2022-03-16 07:27] LABS: Anion Gap 7.5 mmol/L (3-11); BUN 8 mg/dL (7-18); CO2 28.5 mmol/L (21.0-32.0); CREATININE 0.6 mg/dL (0.55-1.02); Calcium 8.2 mg/dL (8.5-10.1); Chloride 98 mmol/L (98-107); Glucose 108 mg/dL (74-106); Potassium 3.8 mmol/L (3.5-5.1); Sodium 134 mmol/L (136-145)
[2022-03-16] MEDS: Fluticasone NASAL SPRAY 16 GM BTL NS (07:31)
[2022-03-16] MEDS: oxyCODONE 5 MG TAB PO (07:32)
[2022-03-16] MEDS: Dexamethasone 4 MG TAB PO (07:32)
[2022-03-16 07:39] VITALS: BP 155/74; PULSE 78; RESP 19; TEMP 37.1; O2SAT 96
--- NOTE | 2022-03-16 07:51 | PGE_ITS ---
Date of Service Date of service: 03/16/22 Time of Service: 07:51 Assessment and Plan Assessment and plan (1) Closed subcapital fracture of left femur: Status: Acute Assessment and plan: Steffi is s/p total hip replacement for hip fracture. There is no notable complications from the surgery itself both and aesthetically or technically. She seems to be doing well. At this point, she may weight-bear as tolerated. She has no positioning restrictions. Physical therapy will start today. Anticoagulation with aspirin also start today. I would recommend that the Miller gets removed as soon as she is able to get up with physical therapy. She would like to go home and this will be determining on how she does with physical therapy. She does have a mild drop of her hemoglobin due to acute postoperative blood loss anemia. We will continue to follow this although I doubt it will require transfusion. Subjective Subjective Interval history since last seen: Steffi reports to be doing better than she was from before surgery. The pain that she had about her hip is now much better and she is able to move herself within the bed without assistance and without significant pain. She has having some pain within the left ankle. She also is having some increasing spasticity issues which are baseline issue for her. She denies fevers or chills. Denies chest pain or shortness of breath. She denies significant numbness or tingling which is different than her baseline. Exam Narrative Exam Narrative: Sitting in the hospital bed. Alert and oriented x3. No acute distress. Evaluation of the left leg shows some residual ecchymosis about the proximal aspect left thigh. The leg is in appropriate position appears to be of similar length of the contralateral side. Active and passive range of motion about the left ankle and foot is intact without any significant increase in pain except for some mild discomfort. No specific point of concern. She is able to tolerat e internal and external rotation as well as flexion of the left hip without any increase in pain. Objective Last Vital Signs Temp 37.1 C 03/16/22 07:39 Pulse 78 03/16/22 07:39 Resp 19 03/16/22 07:39 BP 155/74 H 03/16/22 07:39 Pulse Ox 96 03/16/22 07:39 Laboratory Results - last 24 hr 03/16/22 03/16/22 06:25 06:25 WBC 10.08 RBC 3.04 L Hgb 9.6 L D Hct 28.8 L MCV 95 MCH 31.6 MCHC 33.3 D RDW 13.4 Plt Count 300 MPV 9.6 Sodium 134 L Potassium 3.8 Chloride 98 Carbon Dioxide 28.5 Anion Gap 7.5 BUN 8 Creatinine 0.6 Estimated GFR/1.73 m2 >= 60.00 Glucose 108 H Calcium 8.2 L
--- NOTE | 2022-03-16 09:30 | IN_ITS ---
Date of service: 03/16/22 Time of Service: 09:30 PT Notes Visit Reasons: LEFT HIP FRACTURE Physical Therapy Inpatient Initial Evaluation Date: 03/16/2022 Referring Doctor: Joseph Swan MD PT Orders: PT CONSULT: S/P Ortho surgery. Status post left anterior BELEN for hip fracture Precautions: Fall. Standard. WBAT on left LE with AD. Rigid AFO on R when OOB. Patient Profile/Admitting Diagnosis: Steffi is a 56-year-old female with past medical history significant for multiple sclerosis and repeated falls who sustained a closed subcapital fracture of the left femur from a fall and is status post left anterior total hip arthroplasty on postoperative day 1. PMHX: All Active Problems?(Updated 03/14/22 @ 12:04 by Deyanira George) Murmur, cardiac (Acute) Closed subcapital fracture of left femur (Acute) Right sided sciatica (Acute) Constipation due to neurogenic bowel (Acute) Lumbosacral radiculopathy (Acute) Spinal stenosis of lumbar region with radiculopathy (Acute) Low back pain (Acute) Hamstring strain (Acute) Synovial cyst of popliteal space (Acute) Syncope (Acute) Left carpal tunnel syndrome (Acute) Atypical presentation of carpal tunnel syndrome I think her symptoms may be more likely to trauma to the radial nerve causing some sensory dysfunction from her frequent falls.? She has no evidence of weakness of the wrist extensors or finger extensors.? I would just recommend observation however if the patient has increasing symptoms of carpal tunnel on the left side then I would consider injection.? I do not see need for any exploration of the radial nerve or the median nerve at this point.Memory loss (Chronic) Status post tonsillectomy and adenoidectomy (Acute) Status post myringotomy with insertion of tube (Acute) Status post bunionectomy (Acute) History of arthroscopy of knee (Acute) Fatigue (Acute) Acquired pes planus of right foot (Acute) Nocturia (Acute) Urge incontinence of urine (Acute 08/08/12) Spasticity (Chronic 05/17/15) Optic neuritis (Acute) Neurogenic bladder (Acute 01/13/16) Multiple sclerosis (Chronic 08/28/11) Foot drop, left (Acute 05/17/15) Essential hypertension (Chronic 09/02/13) Asthma (Acute) Pt denies having asthma Anemia (Acute) Medical History? Depression GERD (gastroesophageal reflux disease) Surgical History? 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 does all the cooking. Patient is independent with dressing and bathing. Uses a rollator indoors, SPC for outdoors. Still drives. Equipment Owned/DME: Rollator, SPC Subjective: Agreeable to PT consult. States that she has fallen more than 5 times in the past 12 months. Reports 3-4/10 pain in the L hip. Objective: General Observation: Supine in bed. Mental Status: Alert and oriented as to person, place, time, and purpose. Able to pay attention, focus, and respond appropriately. Pain: 3-4/10 in L hip Vital Signs: WNL as closely monitored by nursing staff ROM: Right Lower Extremity: Hip flexion WFL. Hip abduction WFL. Knee flexion WFL. Ankle dorsiflexion WFL. Ankle plantarflexion WFL. Left Lower Extremity: Hip flexion WFL. Hip abduction WFL. Knee flexion WFL. Ankle dorsiflexion NT. Ankle plantarflexion NT. Strength: Right Lower Extremity: Hip flexors 4/5. Hip abductors 4/5. Knee flexors 4/5. Knee extensors 4/5. Ankle dorsiflexors 4-/5. Ankle plantarflexors 5/5. Left Lower Extremity: Hip flexors 4-/5. Hip abductors 4-/5. Knee flexors 4-/5. Knee extensors 4-/5. Ankle dorsiflexors 4-/5. Ankle plantarflexors 5/5. Bed Mobility/Transfers: Supine to sit stand by assist Sit to supine stand by assist Sit to stand contact by assist Stand to sit stand by assist Bed to reclining chair stand by assist Gait: Instructed patient with level surface ambulation of 50 feet requiring contact guard assist. [place] decreased. Step-to gait pattern. Trunk minimally flexed. Patient states that there is nothing different with her previous gait pattern and today's walking except for the reduced speed due to postoperative status. Balance: Static Sitting: Normal Dynamic Sitting: Normal Static Standing: Fair Dynamic Standing: Fair Special Tests: Mobility Limitations Standardized Measure [facility] AM-PAC 6 clicks Basic Mobility Inpatient Short Form: Raw Score: 21 CMS Score: 29% deficit Informed Consent/Education: Patient was instructed in purpose of PT consult and plan of care. Agreeable to proceed with established PT POC to achieve personal goals. SCHOOL PSYCHOMETRIST to review HEP and issue FWW this afternoon prior to today's discharge. Assessment: Steffi is a 56-year-old female with past medical history significant for multiple sclerosis and repeated falls who sustained a closed subcapital fracture of the left femur from a fall and is status post left anterior total hip arthroplasty on postoperative day 1. Patient requires the use of FWW and R rigid AFO to maximize independence with ADL performance. She will benefit from a FWW for home to ensure safety and fall risk reduction. Patient presents with clinical signs and symptoms consistent with current/admitting diagnoses that have resulted to mobility limitations, gait instability, generalized weakness, and overall ADL decline as demonstrated by the following impairment level findings: 1. Decreased strength to R hip major muscle groups 2. Impaired standing balance 3. Impaired activity tolerance 4. Limitation of joint range of motion in R ankle (chronic) 5. Pain in L hip at 3-4/10 6. Pre-existing postural deformity Impairments are contributing to the following functional limitations: 1. Decline in bed mobility skills 2. Decline in transfer skills 3. Difficulty with ambulation without assistive device and physical assistance 4. Increased completion time for mobility ADL performance 5. Increased risk for falls Patient is assessed as a 41928 moderate complexity based on the following: History: 56-year-old female with past medical history as indicated above Examination: Demonstrable impairment in strength, balance, and mobility level with underlying impairments and functional limitations as exhibited above as well as deficit score of 47% utilizing the [facility] Mobility Inpatient Short Form Presentation: Evolving Decision Makin moderate complexity Goals: Goals X1 week 1. Supine-Sit independent 2. Sit-Supine independent 3. Sit-Stand independent 4. Stand-Sit independent with FWW 5. Bed-Chair independent with FWW 6. Chair-Bed independent with FWW 7. Independent gait on level surface with use of FWW for at least 100 feet without report of pain nor dyspnea 8. Good static and dynamic standing balance/tolerance Plan of Care/Treatment Plan: 1-2x/day, 7 days/week x 1 week. Plan of care has been reviewed with the SCHOOL PSYCHOMETRIST providing the service under Physical Therapy direction. Initiate Physical Therapy intervention for pain management as needed, strengthening, bed mobility, transfers, gait, stairs, balance training, and use of assistive device. DISCHARGE RECOMMENDATIONS: [] Home with no services [] [X] Home with services. Home when medically cleared by orthopedic surgeon and/or hospitalist. Patient will benefit from home health PT services in order to progress mobility level using least restrictive assistive ambulatory device, assess home safety, identify additional equipment needs, and establish a functional maintenance program that will increase ability of patient to remain at home. Will need FWW to maximize indpendence and reduce fall risk. [] Home with outpatient PT [] [] SNF for continued rehabilitation [] [] Intermediate Care [] [] SNF versus LTC based on ability to participate and progress [] TREATMENT CODE/TIME: 49432 x 20 minutes, 33343 x 26 minutes beginning at 9:30 AM. Thank you for the opportunity to participate in the care of this patient. Katharina Galvez PT, DPT, CLT [facility] [place], [place]
[2022-03-16] MEDS: Aspirin E.C. 81 MG TABEC PO (10:08)
--- NOTE | 2022-03-16 10:26 | DSE_ITS ---
DS: Diagnosis Discharge Diagnosis (1) Closed subcapital fracture of left femur: Status: Acute Discharge Plan Disposition Patient Disposition: HOME W/HOME HEALTH SERVICE Condition: Stable Discharge Details Reason For Visit: LEFT HIP FRACTURE Admit Date/Time: 03/13/22 17:03 Admit Provider: Lowell Tucker Attending Provider: Joseph Swan Primary Care Provider: Elizabeth Nunn Hospital Course Hospital Course: Patient was admitted to the medical/surgical floor for a displaced left femoral neck fracture. I recommended a hip replacement based on the her age and the fracture characteristics. On HD#2 she went for an anterior hip replacement. The surgery was tolerated well without any notable medical, surgical, or anesthetic complications. Mobilization began postoperatively. She was voiding spontaneously. Vitals were stable. Physical therapy worked with the patient and was cleared for discharge home. No acute medical issues. Pain was controlled on oral regimen. Home Meds and New Rx's Prescriptions: New aspirin 81 mg tablet,delayed release (DR/EC) 81 mg PO BID Qty: 60 0RF acetaminophen 500 mg tablet 1,000 mg PO Q8H PRN (Reason: pain) Qty: 90 3RF docusate sodium [Colace] 100 mg capsule 100 mg PO BID PRNQty: 10 0RF tramadol 50 mg tablet 50 mg PO Q6H PRNQty: 14 0RF ibuprofen 600 mg tablet 600 mg PO TID PRN (Reason: pain) Qty: 90 3RF Continued triamcinolone acetonide [Nasacort] 55 mcg aerosol,spray 1 spray JAMEL BID 0RF melatonin 3 mg tablet 6 mg PO HS 0RF turmeric root extract 500 mg capsule 500 mg PO DAILY 0RF desmopressin 0.2 mg tablet 0.4 mg PO HS Qty: 180 3RF diphenhydramine-acetaminophen [Tylenol PM Extra Strength] 1 EACH tablet 1 tab PO HS 0RF Timoptic Ocudose (PF) 1 EACH dropperette 1 drp Ophthalmic DAILY 0RF Rx Instructions: BOTH EYES B Complex Plus Vitamin C 1 EACH capsule 1 cap PO DAILY 0RF Probiotic and Acidophilus 1 EACH capsule 1 cap PO DAILY 0RF pedi multivit 17-iron fumarate 1 EACH tablet,chewable 2 tab PO DAILY 0RF calcium carbonate-vitamin D3 1 EACH tablet 1 ea PO DAILY 0RF glucosamine sulf-chondroitinSA 1 EACH capsule 1 ea PO BID 0RF cholecalciferol (vitamin D3) 5,000 UNIT tablet 5,000 unit PO DAILY 0RF dalfampridine [Ampyra] 10 mg tablet extended release 12 hr 10 mg PO BID Qty: 180 3RF modafinil [Provigil] 200 mg tablet 200 mg PO BID Qty: 180 3RF omeprazole 20 mg capsule,delayed release(DR/EC) 20 mg PO DAILY Qty: 90 3RF amlodipine 10 mg tablet 10 mg PO DAILY Qty: 90 3RF baclofen 20 mg tablet 40 mg PO TID Qty: 540 3RF citalopram 20 mg tablet 20 mg PO DAILY Qty: 90 4RF lisinopril 20 mg tablet See Rx Instructions .ROUTE .COMPLEX Qty: 180 0RF Dose Instruction: TAKE 2 TABLETS BY MOUTH DAILY Rx Instructions: TAKE 2 TABLETS BY MOUTH DAILY magnesium 500 mg Tablet PO 0RF Discharge Instructions Additional Instructions: Total Hip Discharge Instructions Activity: The most important activity is to walk. You should try to take short walks a few times a day. You have no restrictions on movement or positioning, but do not try to force what you do. You will find some stiffness and weakness with hip flexion (lifting your knee). Do not try to strengthen this too early, continue to practice walking and stairs and this will come. - Outpatient physical therapy can be helpful to help return you to a normal gait and improve your flexibility and strength. This can start around 2 weeks. For some patients, it?s not necessary. Usually this is determined at the time of discharge or at the first post-operative visit. - You should wear the SHEFALI hose on both legs for 2 weeks. Dressing: Keep the surgical dressing in place for at least one week. After the first week it may be removed and replace with light gauze and tape or nothing. It may get wet after 3 days but avoid soaking the dressing. If it gets wet, just lightly pat dry. It is important to always keep some gauze between skin folds, especially when you are sitting. Spend some time with the wound exposed when you are lying flat as the incision does wrinkle onto itself. Medications: - You should take Tylenol and an anti-inflammatory Ibuprofen as your primary pain control medications. If the Celebrex is too expensive or not covered, please call the office for another alternative (Advil/Ibuprofen or Naproxen/Aleve). - You have been prescribed a stronger pain medication Tramadol for breakthrough pain, take as needed as prescribed. - You should continue your stomach acid reduction agent Omeprazole to help reduce stomach acid and reflux. - You will be taking Aspirin 81mg twice a day for DVT prevention unless instructed otherwise. - If you have constipation you should take Colace or Miralax (both [id number]). It takes most people 3-4 days to have a bowel movement. Follow-up: 2 weeks If you have any acute concerns or questions, please do not hesitate to contact the office at [phone]. You may contact Dr. Swan with any questions after hours through the hospital at [phone] or on his cell phone at [phone]. 1. Encounter Date and Reason I certify that Mina Coker was seen by Joseph Swan MD on 03/16/22 and that I had a [id number] encounter with this patient that meets the physician face to face encounter requirements. 2. Clinical Findings Supporting Skilled Need and Homebound Status I certify that home health services are medically necessary, include either intermittent long-term and/or physical/speech therapy, and that this patient is homebound in that absences from the home require considerable and taxing effort and are infrequent or of short duration, or are attributable to the need to receive medical care. [X] (a) Attached documentation from encounter provides clinical findings supporting skilled need and homebound status (including what assistance patient requires to leave the home). The encounter with the patient was in whole, or in part, for the following medical condition, which is the primary reason for home health care: LEFT HIP FRACTURE Alf: Physical Therapy: Physical therapy would benefit Steffi to build strength and improve her ability ambulate after hip replacement for hip fracture. This is also complicated by her underlying multiple sclerosis and weakness along with lumbar radiculopathy and spinal stenosis. She has no weightbearing restrictions. She should use an assistive device, front wheel walker. No positioning restrictions Speech Therapy: Homebound: On is homebound. She is unable to leave her home unassisted due to significant weakness and ambulatory dysfunction 3. Certification and Authentication I certify that I composed the above information based on my clinical judgement relating to this patient's medical condition and, if applicable, clinical findings communicated to me by the NPP or inpatient physician who performed the Home Health Referral. All further orders will be obtained through Dr. Swan Stand Alone Forms: Nursing Discharge Form Referrals: Joseph Swan MD [ [facility] STAFF PHYSICIAN] - Activity:: Activity as Tolerated Equipment/Supplies:: Walker Diet:: As Tolerated Discharge Orders Discharge Orders: Discharge Order (Routine); Ordered 03/16/22 Ordered By: Joseph Swan DS: Summary Time Spent with Patient providing and/or coordinating discharge services: Less than 30 minutes Status at Discharge Functional status at discharge: uses cane/walker Overall status at discharge: patient is progressing back to baseline Mental Status: mental status grossly normal Speech and Movement: speech and movement normal Mood: congruent mood Affect: normal affect Exam Psych Mental Status: mental status grossly normal Speech and Movement: speech and movement normal Mood: congruent mood Affect: normal affect DS: Data Vitals/I&O Vitals and I&O: Vital Signs Temperature 37.1 C 03/16/22 07:39 Temperature Source Tympanic 03/16/22 07:39 Pulse 78 03/16/22 07:39 Pulse Rhythm Regular 03/15/22 20:48 Respiratory Rate 19 03/16/22 07:39 Respiratory Effort Non-Labored 03/15/22 20:48 Respiratory Depth Normal 03/15/22 20:48 Respiratory Pattern Normal 03/15/22 20:48 Blood Pressure 155/74 H 03/16/22 07:39 Pulse Oximetry 96 03/16/22 07:39 Respiratory End-tidal CO2 30 03/15/22 18:19 Oxygen Delivery Method Room Air 03/16/22 07:39 Oxygen Flow Rate 0 03/16/22 07:39 Pain Level 4 03/16/22 10:08 Comment 03/15/22 07:25 Intake & Output 03/15/22 03/15/22 03/16/22 11:59 23:59 11:59 Intake Total 200 / 2138.667 1938.66 / 390 / 390 Output Total 650 / 1600 950 / 1600 650 / 650 Balance -450 / 538.667 988.667 / 538.667 -260 / -260 Weight 58.967 kg Intake: IV 200 / 8.667 1937.667 / 2137. 150 / 150 Oral 240 / 240 Output: Urine 650 / 1300 650 / 1300 650 / 650 Estimated Blood Loss 300 / 300 Other: Urine Color Straw Yellow Yellow Urine Appearance Clear Clear Clear Emesis Description None Voiding Methods Indwelling Catheter Data Completed and Pending Labs on day of discharge: Labs from last 24 hours 03/16/22 03/16/22 06:25 06:25 WBC 10.08 RBC 3.04 L Hgb 9.6 L D Hct 28.8 L MCV 95 MCH 31.6 MCHC 33.3 D RDW 13.4 Plt Count 300 MPV 9.6 Sodium 134 L Potassium 3.8 Chloride 98 Carbon Dioxide 28.5 Anion Gap 7.5 BUN 8 Creatinine 0.6 Estimated GFR/1.73 m2 >= 60.00 Glucose 108 H Calcium 8.2 L PFSH All Active Problems DVT prophylaxis (Acute) Discharge planning issues (Acute) Discharge planning issues (Acute) Murmur, cardiac (Acute) Closed subcapital fracture of left femur (Acute) Right sided sciatica (Acute) Constipation due to neurogenic bowel (Acute) Lumbosacral radiculopathy (Acute) Spinal stenosis of lumbar region with radiculopathy (Acute) Low back pain (Acute) Hamstring strain (Acute) Synovial cyst of popliteal space (Acute) Syncope (Acute) Left carpal tunnel syndrome (Acute) Atypical presentation of carpal tunnel syndrome I think her symptoms may be more likely to trauma to the radial nerve causing some sensory dysfunction from her frequent falls. She has no evidence of weakness of the wrist extensors or finger extensors. I would just recommend observation however if the patient has increasing symptoms of carpal tunnel on the left side then I would consider injection. I do not see need for any exploration of the radia l nerve or the median nerve at this point. Memory loss (Chronic) Status post tonsillectomy and adenoidectomy (Acute) Status post myringotomy with insertion of tube (Acute) Status post bunionectomy (Acute) History of arthroscopy of knee (Acute) Fatigue (Acute) Acquired pes planus of right foot (Acute) Nocturia (Acute) Urge incontinence of urine (Acute 08/08/12) Spasticity (Chronic 05/17/15) Optic neuritis (Acute) Neurogenic bladder (Acute 01/13/16) Multiple sclerosis (Chronic 08/28/11) Foot drop, left (Acute 05/17/15) Essential hypertension (Chronic 09/02/13) Asthma (Acute) Pt denies having asthma Anemia (Acute) Medical History Depression GERD (gastroesophageal reflux disease) Surgical History S/P bunionectomy bilateral S/P left knee arthroscopy partial medial meniscectomy, L S/P myringotomy with insertion of tube x9 S/P ovarian cystectomy S/P tonsillectomy and adenoidectomy Family History Mother , age 76 Diabetes Essential hypertension Asthma Father , age 55 Substance abuse Essential hypertension Hypercholesterolemia Alcohol abuse Brother Alcohol abuse Substance abuse Maternal Grandfather , age 68 Essential hypertension Hyperlipidemia Stroke Liver cancer Paternal Grandfather , age 78 Stomach cancer Maternal Grandmother , age 97 Diabetes Essential hypertension Hyperlipidemia Paternal Grandmother , age 76 No problems noted. Daughter No problems noted. Social History Smoking/Tobacco Use Status: Former Tobacco Use tobacco type: cigarettes Quit Date: 11/12/07 Second Hand Exposure: Yes Smoking risk assessment performed?: Yes Alcohol Intake: current Alcohol Intake frequency: a few times a month Alcohol type: wine Drug use: Daily Substance use type: marijuana Caregiver/Support person: No Household members: spouse Number of Children: 1 Communication Needs: None Do you need help understanding health information?: Never current occupation: [employer] Pets and animals: Yes Pets and animals: cat(s) Do you think of yourself as: straight/heterosexual Current gender identity: female What is your relationship status?: How often do you talk on the phone with friends or family?: never How often do you get together with friends or relatives?: never Do you belong to any clubs or organized social groups?: no Panel score (0-1 are the most socially isolated patients): 1 What type of physical activity do you participate in: none Veda/Mu-Ism: None Special veda needs: No Seatbelt use: always Helmet use: Yes Helmet use: sometimes Drive intox or ride w/intox racing car driver: No Do you feel safe at home: Yes Do you feel safe in your relationship?: Yes
--- NOTE | 2022-03-16 12:03 | W.PM.PROGNOT ---
Date of Service Date of service: 03/16/22 Time of Service: 11:45 Assessment and Plan Assessment and plan (1) Closed subcapital fracture of left femur: Status: Acute Assessment and plan: orthopedics surgery completed on 03/15 see notes Miller discontinued p/o day #1 ASA 81 mg po daily Cefazolin IV for 3 doses p/o in place Dexamethazone oral in place to be stopped after 2 doses pain management: Controlled with present management: APAP IV scheduled, Ketorolac IV PRN and Oxicodone PRN Will conitnue APA and PRN oxicodone and Ketorolac incentive spirometry teds, scds (2) Spasticity: Status: Chronic Assessment and plan: Will continue home medication baclofen (3) Essential hypertension: Status: Chronic Assessment and plan: will monitor and continue home medications (4) Multiple sclerosis: Status: Chronic Assessment and plan: stable continue home medications (5) Constipation due to neurogenic bowel: Status: Acute Assessment and plan: bowel management regimen in place and will continue (6) Murmur, cardiac: Assessment and plan: echocardiography completed, mild systolic murmur found (7) DVT prophylaxis: Status: Deleted Assessment and plan: ASA 81 mg ordered SHEFALI's, SCD's (8) Discharge planning issues: Status: Deleted Assessment and plan: PT recommends discharge home with walker and with home health Care management will f/u with needs Subjective Subjective Patient reports: no new complaints, feels better, pain is less, tolerating a regular diet, flatus, no bowel movement, afebrile and other; denies nausea Exam Narrative Exam Narrative: Patient sitting in recliner at the time of the examination appears comfortable. Const General: cooperative, comfortable, no acute distress and well groomed Orientation: alert, awake and oriented x3 HENMT Head: normal to inspection, normocephalic and atraumatic Eyes General: appearance normal, both eyes and all related structures Alignment and Position: alignment normal and position normal Eyelids: eyelids normal Neck Neck: normal visual inspection, no lymphadenopathy, trachea midline and supple Chest Chest: normal inspection of the chest Resp Effort & Inspection: normal respiratory effort and able to speak in complete sentences Auscultation: clear to auscultation bilaterally Cardio Jugular venous pressure: no JVD Rate: regular rate Rhythm: regular rhythm Heart Sounds: S1 normal, S2 normal and murmur systolic at the apex Pulses: brachial pulses present and dorsalis pedis present GI Inspection: normal to inspection and non-distended Palpation: soft and nontender Auscultation: normoactive bowel sounds General: No CVA tenderness and other (Miller catheter discontinued today in late morning) Back/Spine/Pelvis Back: no CVA tenderness and back tenderness (Diffuse mild lumbar, slightly worse on the right) Skin General skin exam: no rashes or lesions noted Other: left hip surgical dressing in place; intact. Minimal bruising noted to left upper trochanter area Neuro General: patient alert, patient awake, patient oriented x3, moves all extremities and no focal motor deficits Cognition: normal cognition Speech: speech normal Gait: other (Stable with front wheel walker) Motor: other (Baseline bilateral foot drop, accentuated in the right foot) Sensory Exam: no sensory deficits noted Extrem General: full ROM, capillary refill normal, no pedal edema and no calf tenderness Other: Orthesis to right foot Psych Appearance: grossly normal Mental Status: mental status grossly normal Speech and Movement: speech clear Mood: congruent mood Affect: normal affect Attitude: cooperative Thought Process: normal Thought Content: normal Insight: insight good Objective Last Vital Signs Temp 98.8 F 03/16/22 07:39 Pulse 78 03/16/22 07:39 Resp 19 03/16/22 07:39 BP 155/74 H 03/16/22 07:39 Pulse Ox 96 03/16/22 07:39 Laboratory Results - last 24 hr 03/16/22 03/16/22 06:25 06:25 WBC 10.08 RBC 3.04 L Hgb 9.6 L D Hct 28.8 L MCV 95 MCH 31.6 MCHC 33.3 D RDW 13.4 Plt Count 300 MPV 9.6 Sodium 134 L Potassium 3.8 Chloride 98 Carbon Dioxide 28.5 Anion Gap 7.5 BUN 8 Creatinine 0.6 Estimated GFR/1.73 m2 >= 60.00 Glucose 108 H Calcium 8.2 L
[2022-03-16] MEDS: traMADol 50 MG TAB PO (13:42)
[2022-03-16] MEDS: Normal Saline Flush 10 ML SYR IVP (14:56)
[2022-03-16 15:19] VITALS: BP 143/88; PULSE 83; RESP 19; TEMP 36.6; O2SAT 96
--- NOTE | 2022-03-16 15:36 | PDOC.HHF2F_ITS ---
Home Health Certification Home Health Certification: 1. Encounter Date and Reason I certify that Mina Coker was seen by Tiffany French NP on 03/16/22 and that I had a [id number] encounter with this patient that meets the physician face to face encounter requirements. 2. Clinical Findings Supporting Skilled Need and Homebound Status I certify that home health services are medically necessary, include either intermittent detention and/or physical/speech therapy, and that this pa tient is homebound in that absences from the home require considerable and taxing effort and are infrequent or of short duration, or are attributable to the need to receive medical care. [X] (a) Attached documentation from encounter provides clinical findings supporting skilled need and homebound status (including what assistance patient requires to leave the home). The encounter with the patient was in whole, or in part, for the following medical condition, which is the primary reason for home health care: LEFT HIP FRACTURE Retirement: Physical Therapy: Speech Therapy: Homebound: 3. Certification and Authentication I certify that I composed the above information based on my clinical judgement relating to this patient's medical condition and, if applicable, clinical findings communicated to me by the NPP or inpatient physician who performed the Home Health Referral. All further orders will be obtained through (Community Based Physician - PCP)
--- NOTE | 2022-03-16 15:46 | PT.INTREAT ---
Date of service: 03/16/22 Time of Service: 14:53 PT Notes Visit Reasons: LEFT HIP FRACTURE Inpatient Physical Therapy Treatment Note [facility] Date: 03/16/2022 PRECAUTIONS: Activity as tolerated, WBAT L SUBJECTIVE: Steffi is pleasant and agreeable to participating in PT. She reports that she has no concerns regarding going home and being alone during the day. OBJECTIVE: Issued patient FWW, completed [facility] form and turned in to Care Management. PAIN: Patient c/o sciatic pain with bed mobility BED MOBILITY/TRANSFERS Supine-sit: I with HOB flat Sit-supine: I with HOB flat Sit-stand: SBA Stand-sit: SBA GAIT Assistive Device: FWW Weight bearing: WBAT L Assist: CGA Distance: 60' Deviation: Cueing to slow down, chronic flexed posture THEREX: Issued, reviewed and instructed patient in her LE strengthening and stabilization HEP. ASSESSMENT: Patient requires cueing for safety with gait training. She has good understanding of HEP. PLAN: Patient to discharge to home later today, per provider. Recommend follow up with PT. TREATMENT CODE/TIME: 21 minutes; [id number] (14:53)
--- NOTE | 2022-03-16 17:03 | PDOC.CMDIS ---
- If Service Date Differs Date of service: 03/16/22 Time of Service: 17:03 LACE Index Scoring Tool - Questions: Length of Stay (in days): 3 Acuity (Admit via E.D.?): Yes E.D. Visits: 1 - Answers: Total Score: 7 Risk of Readmission: Low Risk Care Management Discharge Reason for Hospitalization: Left Hip Fracture Discharge Plan: Steffi returned home today with new orders for HH PT. Her drove her home via private vehicle. She will follow up with her PCP and discharge plan of care. She stated that her surgery went well, she is moving well with PT, and is happy to be going home. Patient/Family Education Needs: Review discharge instructions and limitations, discussion of self care needs including ask me three and goals of care. Services Needed at Discharge: Home Health Care Services (HH PT)
--- NOTE | 2022-03-16 18:00 | INDS_ITS ---
Date of service: 03/16/22 PT Notes Visit Reasons: LEFT HIP FRACTURE Physical Therapy Inpatient Discharge Summary Date: 03/16/2022 Date of service 03/16/2022 only This is a clinical summary of care provided for the duration of dates listed above. No charge was made in the completion of this documentation. Referring Doctor: Joseph Swan MD PT Orders: PT CONSULT: S/P Ortho surgery.? Status post left anterior BELEN for hip fracture Precautions: Fall. Standard.? WBAT on left LE with AD. Rigid AFO on R when OOB. Patient Profile/Admitting Diagnosis: Steffi is a 56-year-old female with past medical history significant for multiple sclerosis and repeated falls who sustained a closed subcapital fracture of the left femur from a fall and is status post left anterior total hip arthroplasty on postoperative day 1.? PMHX: All Active Problems?(Updated 03/14/22 @ 12:04 by Deyanira George) Murmur, cardiac (Acute) Closed subcapital fracture of left femur (Acute) Right sided sciatica (Acute) Constipation due to neurogenic bowel (Acute) Lumbosacral radiculopathy (Acute) Spinal stenosis of lumbar region with radiculopathy (Acute) Low back pain (Acute) Hamstring strain (Acute) Synovial cyst of popliteal space (Acute) Syncope (Acute) Left carpal tunnel syndrome (Acute) Atypical presentation of carpal tunnel syndrome I think her symptoms may be more likely to trauma to the radial nerve causing some? ? ? sensory dysfunction from her frequent falls.? She has no evidence of weakness of the wrist extensors or finger extensors.? I would just? recommend observation however if the patient has increasing symptoms of carpal tunnel on the left side then I would consider injection.? I do not see need for any exploration of the radial nerve or the median nerve at this point.Memory loss (Chronic) Status post tonsillectomy and adenoidectomy (Acute) Status post myringotomy with insertion of tube (Acute) Status post bunionectomy (Acute) History of arthroscopy of knee (Acute) Fatigue (Acute) Acquired pes planus of right foot (Acute) Nocturia (Acute) Urge incontinence of urine (Acute 08/08/12) Spasticity (Chronic 05/17/15) Optic neuritis (Acute) Neurogenic bladder (Acute 01/13/16) Multiple sclerosis (Chronic 08/28/11) Foot drop, left (Acute 05/17/15) Essential hypertension (Chronic 09/02/13) Asthma (Acute) Pt denies having asthma Anemia (Acute) Medical History? Depression GERD (gastroesophageal reflux disease) Surgical History? 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 does all the cooking.? Patient is independent with dressing and bathing.? Uses a rollator indoors, SPC for outdoors.? Still drives. Equipment Owned/DME: Rollator, SPC Subjective: NT. See most recent FIELD SERVICE SPECIALIST notes. Objective: General Observation: NT. See most recent FIELD SERVICE SPECIALIST notes. Mental Status: NT. See most recent FIELD SERVICE SPECIALIST notes. Pain: NT. See most recent FIELD SERVICE SPECIALIST notes. Vital Signs: NT. See most recent FIELD SERVICE SPECIALIST notes. ROM: Right Lower Extremity: Hip flexion WFL. Hip abduction WFL. Knee flexion WFL. Ankle dorsiflexion WFL. Ankle plantarflexion WFL. Left Lower Extremity: Hip flexion WFL. Hip abduction WFL. Knee flexion WFL. Ankle dorsiflexion NT. Ankle plantarflexion NT. Strength: Right Lower Extremity: Hip flexors 4/5. Hip abductors 4/5. Knee flexors 4/5. Knee extensors 4/5. Ankle dorsiflexors 4-/5. Ankle plantarflexors 5/5. Left Lower Extremity: Hip flexors 4-/5. Hip abductors 4-/5. Knee flexors 4-/5. Knee extensors 4-/5. Ankle dorsiflexors 4-/5. Ankle plantarflexors 5/5. Bed Mobility/Transfers: Supine to sit stand by assist Sit to supine stand by assist Sit to stand contact by assist Stand to sit stand by assist Bed to reclining chair stand by assist Gait: Instructed patient with level surface ambulation of 50 feet requiring contact guard assist. [place] decreased. Step-to gait pattern. Trunk minimally flexed.? Patient states that there is nothing different with her previous gait pattern and today's walking except for the reduced speed due to postoperative status. Balance: Static Sitting: Normal Dynamic Sitting: Normal Static Standing: Fair Dynamic Standing: Fair Assessment: Steffi is a 56-year-old female with past medical history significant for multiple sclerosis and repeated falls who sustained a closed subcapital fracture of the left femur from a fall and is status post left anterior total hip arthroplasty on postoperative day 1.? Patient requires the use of FWW and R rigid AFO to maximize independence with ADL performance.? She will benefit from a FWW for home to ensure safety and fall risk reduction.? Patient presents with clinical signs and symptoms consistent with current/admitting diagnoses that have resulted to mobility limitations, gait instability, generalized weakness, and overall ADL decline as demonstrated by the following impairment level findings: 1.? Decreased strength to R hip major muscle groups 2.? Impaired standing balance 3.? Impaired activity tolerance 4.? Limitation of joint range of motion in R ankle (chronic) 5.? Pain in L hip at 3-10 6. Pre-existing postural deformity Impairments are contributing to the following functional limitations: 1.? Decline in bed mobility skills 2.? Decline in transfer skills 3.? Difficulty with ambulation without assistive device and physical assistance 4.? Increased completion time for mobility ADL performance 5.? Increased risk for falls Goals: Goals X1 week 1. Supine-Sit independent NOT MET 2. Sit-Supine independent NOT MET 3. Sit-Stand independent NOT MET 4. Stand-Sit independent with FWW NOT MET 5. Bed-Chair independent with FWW NOT MET 6. Chair-Bed independent with FWW NOT MET 7. Independent gait on level surface with use of FWW for at least 100 feet without report of pain nor dyspnea NOT MET 8. Good static and dynamic standing balance/tolerance NOT MET DISCHARGE RECOMMENDATIONS: [] ? Home with no services [] [X] ? Home with services.? Home when medically cleared by orthopedic surgeon and/or hospitalist.? Patient will benefit from home health PT services in order to progress mobility level using least restrictive assistive ambulatory device, assess home safety, identify additional equipment needs, and establish a func tional maintenance program that will increase ability of patient to remain at home.? Will need FWW to maximize indpendence and reduce fall risk. [] ? Home with outpatient PT [] [] ? SNF for continued rehabilitation [] [] ? [facility] [] [] ? SNF versus LTC based on ability to participate and progress [] TREATMENT CODE/TIME:? NC Thank you for the opportunity to participate in the care of this patient. Katharina Galvez PT, DPT, CLT [facility] [place], [place]
== END 2022-03-16 17:55 | disposition home health service (06) | DRG 522 ==
LOC: ER 17:27 → MS 18:08
PROVIDERS: Nurse Practitioner Acute Care; Admitting Provider Internal Medicine; Emergency Provider Physician Assistant; PCP Family Medicine; Visit Provider Student in an Organized Health Care Education/Training Program
PROC: 0SRB04A Replacement of Left Hip Joint with Ceramic on Polyethylene Synthetic Substitute, Uncemented, Open Approach (ICD-10-PCS; CPT 27130; principal; 2022-03-15 15:45)
DX: S72.012A Unspecified intracapsular fracture of left femur, initial encounter for closed fracture (principal); K59.2 Neurogenic bowel, not elsewhere classified; W01.0XXA Fall on same level from slipping, tripping and stumbling without subsequent striking against object, initial encounter; I10 Essential (primary) hypertension; G35 Multiple sclerosis; M21.372 Foot drop, left foot; N31.9 Neuromuscular dysfunction of bladder, unspecified; R25.2 Cramp and spasm; K59.09 Other constipation; M48.061 Spinal stenosis, lumbar region without neurogenic claudication; M54.16 Radiculopathy, lumbar region; R35.1 Nocturia; D64.9 Anemia, unspecified; K21.9 Gastro-esophageal reflux disease without esophagitis; F32.A Depression, unspecified; G56.02 Carpal tunnel syndrome, left upper limb; M54.41 Lumbago with sciatica, right side; Z87.891 Personal history of nicotine dependence; F12.90 Cannabis use, unspecified, uncomplicated; M21.41 Flat foot [pes planus] (acquired), right foot; R01.1 Cardiac murmur, unspecified
CPT/HCPCS: 27130; 20985; C1776; 36415; 80048; 80053; 85027; 86850; 86900; 86901; 87635; 93306; 96374; 97162; 97530; 99223; 99284; 99285; 71045; 73501; 73502; 73700; 85025; 85610; 99231; 99233; J0131; J0690; J0780; J1170; J1885; J2405; J3010; J8540

== ENCOUNTER 2022-04-06 10:22 | Outpatient (CLI) | payer MEDICARE, SELFPAY ==
--- NOTE | 2022-04-06 09:45 | DI.RAD_ITS ---
Exam(s) XR HIP LT COMPLETE AP PELVIS EXAM: XR HIP LT COMPLETE AP PELVIS CLINICAL HISTORY: left BELEN. TECHNIQUE: 2D digital imaging was performed. Three images were obtained. AP and lateral views were obtained. COMPARISON: CR XR HIP LT COMPLETE AP PELVIS from 03/13/2022 XA XR HIP LT IN OR from 03/15/2022 FINDINGS: BONES: There are stable post operative changes present. No fracture or dislocation. JOINTS: The orthopedic hardware is in good position. SOFT TISSUE: Dystrophic soft tissue calcifications are again seen. IMPRESSION: Stable postoperative changes. DATA REPOSITORY: RADIATION DOSE DELIVERED:
== END 2022-04-06 10:23 | disposition home or self-care (01) ==
LOC: DIORS 10:23
PROVIDERS: PCP Family Medicine; Referring Provider Family Medicine; Visit Provider Physician Assistant
DX: Z47.1 Aftercare following joint replacement surgery; Z96.642 Presence of left artificial hip joint
CPT/HCPCS: 73502

== ENCOUNTER → 2022-04-12 03:12 | Outpatient (CLI) | payer MEDICARE, SELFPAY ==
--- NOTE | 2022-04-12 07:45 | DI.US_ITS ---
Exam(s) US RENAL EXAM: US RENAL CLINICAL HISTORY: ? hydro with neurogenic bladder,nocturia,r35.1,n31..9 TECHNIQUE: Ultrasound performed using standard protocol. COMPARISON: US US ECHOCARDIOGRAM from 03/14/2022 FINDINGS: Renal ultrasound was performed according to the usual protocol. Kidneys are normal in size and shape . There is no evidence of a renal mass, hydronephrosis, or nephrolithiasis. Urinary bladder is unremarkable in appearance, pre and postvoid urinary bladder volume measurements a re 200 cc and 100 cc respectively. Ureteral jets were noted bilaterally. IMPRESSION: Normal renal ultrasound. DATA REPOSITORY:
== END ==
PROVIDERS: PCP Family Medicine; Visit Provider Nurse Practitioner Gerontology
DX: N31.9 Neuromuscular dysfunction of bladder, unspecified (principal); R35.1 Nocturia
CPT/HCPCS: 76770

== ENCOUNTER 2022-04-12 03:56 | Outpatient (CLI) | payer MEDICARE, SELFPAY ==
[2022-04-12 15:34] LABS: Anion Gap 7.1 mmol/L (3-11); BUN 10 mg/dL (7-18); CO2 30.9 mmol/L (21.0-32.0); CREATININE 0.5 mg/dL (0.55-1.02); Calcium 8.8 mg/dL (8.5-10.1); Chloride 97 mmol/L (98-107); Glucose 73 mg/dL (74-106); Potassium 4.6 mmol/L (3.5-5.1); Sodium 135 mmol/L (136-145)
== END 2022-04-12 03:57 | disposition home or self-care (01) ==
LOC: LBO 03:56
PROVIDERS: PCP Family Medicine; Visit Provider Nurse Practitioner Gerontology
DX: N31.9 Neuromuscular dysfunction of bladder, unspecified (principal); R35.1 Nocturia
CPT/HCPCS: 36415; 76770; 80048

== ENCOUNTER → 2022-04-21 10:22 | Outpatient (BNVA) | payer MEDICARE, SELFPAY | PROVIDERS: PCP Family Medicine; Referring Provider Family Medicine; Visit Provider Nurse Practitioner Gerontology | DX: N39.41 Urge incontinence (principal); N31.9 Neuromuscular dysfunction of bladder, unspecified; R35.1 Nocturia | CPT/HCPCS: 51798; 99214 ==

== ENCOUNTER → 2022-05-10 14:55 | Outpatient (BNVA) | payer MEDICARE, SELFPAY | PROVIDERS: PCP Family Medicine; Referring Provider Family Medicine; Visit Provider Physician Assistant | DX: Z47.1 Aftercare following joint replacement surgery (principal); Z96.642 Presence of left artificial hip joint ==

== ENCOUNTER 2022-05-29 01:33 | Outpatient (CLI) | payer MEDICARE, SELFPAY | END 2022-05-29 01:34 | disposition home or self-care (01) | LOC: LOS 01:33 | PROVIDERS: PCP Family Medicine; Visit Provider Family Medicine ==

== ENCOUNTER 2022-06-09 01:08 | Outpatient (CLI) | payer MEDICARE, SELFPAY ==
[2022-06-09 12:28] LABS: Abs Immature Grans 0.01 10^3/uL (0.0-0.06); Absolute Basophil Count 0.06 10^3/uL (0.0-0.2); Absolute Eosinophil Count 0.12 10^3/uL (0.0-0.7); Absolute Neutrophil Count 4.15 10^3/uL (1.2-6.7); Basophils % 0.9; Eosinophils % 1.7; HCT 36.3 % (36.0-46.0); HGB 11.6 g/dL (11.2-15.7); Immature Grans % 0.1; Lymphocytes % 28.8; MCH 30.4 pg (27.0-33.0); MCV 95 fL (80-95); MPV 9.7 fL (8.0-11.0); Monocytes % 8.6; Neutrophils % 59.9; Platelet Count 413 10^3/uL (130-400); RBC 3.82 10^6/uL (3.93-5.22); RDW 13.4 % (11.7-14.6); RDW-SD 47.4 fL; WBC 6.94 10^3/uL (4.4-10.8)
[2022-06-09 12:49] LABS: Anion Gap 7.6 mmol/L (3-11); BUN 22 mg/dL (7-18); CO2 31.4 mmol/L (21.0-32.0); CREATININE 0.7 mg/dL (0.55-1.02); Calcium 9.1 mg/dL (8.5-10.1); Chloride 100 mmol/L (98-107); Glucose 80 mg/dL (74-106); Potassium 4.6 mmol/L (3.5-5.1); Sodium 139 mmol/L (136-145)
== END 2022-06-09 01:09 | disposition home or self-care (01) ==
LOC: LOS 01:08
PROVIDERS: PCP Family Medicine; Visit Provider Family Medicine
DX: I10 Essential (primary) hypertension (principal); F33.1 Major depressive disorder, recurrent, moderate
CPT/HCPCS: 36415; 80048; 85025

== ENCOUNTER → 2022-06-28 13:07 | Outpatient (BNVA) | payer MEDICARE, SELFPAY | PROVIDERS: PCP Family Medicine; Referring Provider Family Medicine; Visit Provider Psychiatry & Neurology Neurology | DX: M48.061 Spinal stenosis, lumbar region without neurogenic claudication (principal); G35 Multiple sclerosis; R53.83 Other fatigue; N31.9 Neuromuscular dysfunction of bladder, unspecified; R41.3 Other amnesia; K59.2 Neurogenic bowel, not elsewhere classified | CPT/HCPCS: 99214 ==

== ENCOUNTER → 2022-06-29 10:42 | Outpatient (BNVA) | payer MEDICARE, SELFPAY | PROVIDERS: PCP Family Medicine; Referring Provider Family Medicine; Visit Provider Student in an Organized Health Care Education/Training Program | DX: Z47.1 Aftercare following joint replacement surgery (principal); Z96.642 Presence of left artificial hip joint; X58.XXXA Exposure to other specified factors, initial encounter; S72.012A Unspecified intracapsular fracture of left femur, initial encounter for closed fracture ==

== ENCOUNTER 2022-06-30 07:51 | Outpatient (CLI) | payer MEDICARE, SELFPAY ==
--- NOTE | 2022-06-30 07:45 | RT.EKG_ITS ---
APPROVED REPORT Exam: Resting ECG Reason for Exam: pre-op Patient Location: O HR:67 bpm ECG Measurements Heart Rate 67 AXIS HI 176 P 49 QRSd 85 QRS 10 QT 432 T 26 QTc 456 Conclusion Sinus rhythm...normal P axis, V-rate 50- 99 Probable left atrial enlargement...P >50mS, <-0.10mV V1
== END 2022-06-30 07:52 | disposition home or self-care (01) ==
PROVIDERS: PCP Family Medicine; Visit Provider Family Medicine
DX: Z01.818 Encounter for other preprocedural examination (principal)
CPT/HCPCS: 93010

== ENCOUNTER 2022-07-03 04:05 | Outpatient (CLI) | payer MEDICARE, SELFPAY ==
[2022-07-03 12:57] LABS: Abs Immature Grans 0.02 10^3/uL (0.0-0.06); Absolute Basophil Count 0.04 10^3/uL (0.0-0.2); Absolute Eosinophil Count 0.13 10^3/uL (0.0-0.7); Absolute Lymphocyte Count 1.88 10^3/uL (1.2-3.4); Absolute Monocyte Count 0.48 10^3/uL (0.1-0.8); Absolute Neutrophil Count 6.32 10^3/uL (1.2-6.7); Basophils % 0.5; Eosinophils % 1.5; HCT 35.8 % (36.0-46.0); HGB 11.4 g/dL (11.2-15.7); Immature Grans % 0.2; Lymphocytes % 21.2; MCH 30.2 pg (27.0-33.0); MCHC 31.8 % (32.0-36.0); MCV 95 fL (80-95); MPV 9.3 fL (8.0-11.0); Monocytes % 5.4; Neutrophils % 71.2; Platelet Count 388 10^3/uL (130-400); RBC 3.77 10^6/uL (3.93-5.22); RDW 14.1 % (11.7-14.6); WBC 8.87 10^3/uL (4.4-10.8)
[2022-07-03 13:11] LABS: Bilirubin Negative (Negative); Blood Negative (Negative); Clarity Clear (Clear); Glucose Negative (Negative); Ketones Negative (Negative); Leukocyte Esterase Negative (Negative); Nitrite Negative (Negative); Specific Gravity 1.025 (1.005-1.025); Urobilinogen 0.2 EU/dL (Up TO 0.2); pH 6.5 (5-8)
[2022-07-03 13:23] LABS: ALT 25 U/L (14-59); AST 18 U/L (15-37); Alkaline Phosphatase 105 U/L (46-116); Anion Gap 9.5 mmol/L (3-11); BUN 18 mg/dL (7-18); Bilirubin, Total 0.2 mg/dL (0.2-1.0); CO2 30.5 mmol/L (21.0-32.0); CREATININE 0.7 mg/dL (0.55-1.02); Calcium 9.3 mg/dL (8.5-10.1); Chloride 96 mmol/L (98-107); Glucose 128 mg/dL (74-106); Potassium 4.2 mmol/L (3.5-5.1); Sodium 136 mmol/L (136-145); Total Protein 7.1 g/dL (6.4-8.2)
== END 2022-07-03 04:06 | disposition home or self-care (01) ==
LOC: LOS 04:05
PROVIDERS: PCP Family Medicine; Visit Provider Family Medicine
DX: F33.1 Major depressive disorder, recurrent, moderate (principal); M48.061 Spinal stenosis, lumbar region without neurogenic claudication; M54.16 Radiculopathy, lumbar region
CPT/HCPCS: 36415; 80053; 81003; 85025

== ENCOUNTER 2022-07-06 00:55 | Outpatient (CLI) | payer MEDICARE, SELFPAY ==
--- NOTE | 2022-07-06 | DI.MRI_ITS ---
Exam(s) MR LUMBAR SPINE WO EXAM: MR LUMBAR SPINE WO CLINICAL HISTORY: LUMBAR SPONDYLOSIS, M47.816, PREOP. TECHNIQUE: Multiplanar multisequence MRI was performed. COMPARISON: MR MR LUMBAR SPINE WO from 08/25/2021 CR XR LUMBAR SPINE COMP W FLEX/EX from 12/14/[address] LOWER EXTREMITY LT WO from 03/14/2022 FINDINGS: MR examination lumbosacral spine was performed according to the usual protocol. There is a left convex lumbar scoliosis with prominent associated endplate hypertrophic changes on th e right in the mid to lower lumbar spine. There is pseudo spondylolisthesis of L4 on L5 estimated at 25 percent vertebral width. There are Per i discal vertebral signal changes at L3-4 and L4-5 consistent with disc degeneration. There is signa l loss in the intervertebral discs throughout the lumbar region sparing L5-S1. The conus medullaris appears intact. No significant findings at T11-12, T12-L1, or L1 L2, no evidence of disc herniation, central canal sp inal stenosis, or neural foraminal stenosis at these levels. At L2-3, there is deformity of the spinal canal secondary to facet hypertrophy and endplate hypertrop hic changes. There is left lateral recess stenosis and there is right-sided neural foraminal narrowi ng. There is mild central canal spinal stenosis. No focal disc herniation seen. At L3-4, there is moderate disc bulge. There is moderate central canal spinal stenosis. There is bi lateral neural foraminal narrowing right greater than left. At L4-5, there is severe central canal spinal stenosis secondary to the aforementioned pseudo spondyl olisthesis with associated hypertrophic endplate and facet changes. There is bilateral neural forami nal narrowing at this level as well. No significant findings at L5-S1. The current examination is compared with prior examination of August 2021 and the findings as noted today are essentially unchanged in comparison with the findings on the prior examination. IMPRESSION: Multilevel abnormalities as described above with multilevel central canal spinal stenosis, severe at L4-5, and multilevel neural foraminal stenosis. No gross interval change from prior examination of August 2021. DATA REPOSITORY:
== END 2022-07-06 01:15 ==
PROVIDERS: PCP Family Medicine; Visit Provider Neurological Surgery
DX: M47.816 Spondylosis without myelopathy or radiculopathy, lumbar region (principal); M48.061 Spinal stenosis, lumbar region without neurogenic claudication; M51.36 Other intervertebral disc degeneration, lumbar region
CPT/HCPCS: 72148

== ENCOUNTER 2022-10-19 01:32 | Outpatient (CLI) | payer MEDICARE, SELFPAY ==
[2022-10-19 11:29] LABS: Anion Gap 6.9 mmol/L (3-11); BUN 15 mg/dL (7-18); CO2 32.1 mmol/L (21.0-32.0); CREATININE 0.5 mg/dL (0.55-1.02); Chloride 96 mmol/L (98-107); Estimated GFR 110.01 (mL/min/1.73m2); Glucose 74 mg/dL (74-106); Potassium 4.3 mmol/L (3.5-5.1); Sodium 135 mmol/L (136-145)
== END 2022-10-19 01:33 | disposition home or self-care (01) ==
LOC: LBO 01:32
PROVIDERS: PCP Family Medicine; Visit Provider Nurse Practitioner Gerontology
DX: N31.9 Neuromuscular dysfunction of bladder, unspecified (principal); N39.41 Urge incontinence
CPT/HCPCS: 36415; 80048

== ENCOUNTER → 2022-10-26 10:33 | Outpatient (BNVA) | payer MEDICARE, SELFPAY | PROVIDERS: PCP Family Medicine; Referring Provider Family Medicine; Visit Provider Nurse Practitioner Gerontology | DX: N31.9 Neuromuscular dysfunction of bladder, unspecified (principal); N39.41 Urge incontinence; R35.1 Nocturia; G35 Multiple sclerosis | CPT/HCPCS: 99214 ==

== ENCOUNTER 2022-12-21 01:49 | Outpatient (CLI) | payer MEDICARE, SELFPAY ==
[2022-12-21 15:58] LABS: Abs Immature Grans 0.02 10^3/uL (0.0-0.06); Absolute Basophil Count 0.04 10^3/uL (0.0-0.2); Absolute Eosinophil Count 0.12 10^3/uL (0.0-0.7); Absolute Lymphocyte Count 2.68 10^3/uL (1.2-3.4); Absolute Monocyte Count 0.71 10^3/uL (0.1-0.8); Absolute Neutrophil Count 3.67 10^3/uL (1.2-6.7); Basophils % 0.6; Eosinophils % 1.7; HCT 35.7 % (36.0-46.0); HGB 11.6 g/dL (11.2-15.7); Immature Grans % 0.3; MCH 31.7 pg (27.0-33.0); MCHC 32.5 % (32.0-36.0); MCV 98 fL (80-95); MPV 8.4 fL (8.0-11.0); Monocytes % 9.8; Neutrophils % 50.6; Platelet Count 394 10^3/uL (130-400); RBC 3.66 10^6/uL (3.93-5.22); RDW 14.1 % (11.7-14.6); RDW-SD 51.2 fL; WBC 7.24 10^3/uL (4.4-10.8)
[2022-12-21 16:30] LABS: Anion Gap 3.6 mmol/L (3-11); BUN 15 mg/dL (7-18); CO2 34.4 mmol/L (21.0-32.0); CREATININE 0.7 mg/dL (0.55-1.02); Calcium 9.5 mg/dL (8.5-10.1); Chloride 99 mmol/L (98-107); Estimated GFR 101.44 (mL/min/1.73m2); Glucose 109 mg/dL (74-106); Potassium 4.7 mmol/L (3.5-5.1); Sodium 137 mmol/L (136-145)
== END 2022-12-21 01:50 | disposition home or self-care (01) ==
LOC: LBO 01:49
PROVIDERS: PCP Family Medicine; Visit Provider Family Medicine
DX: D62 Acute posthemorrhagic anemia (principal); I10 Essential (primary) hypertension
CPT/HCPCS: 36415; 80048; 85025

== ENCOUNTER 2023-01-18 01:43 | Outpatient (CLI) | payer MEDICARE, SELFPAY ==
--- NOTE | 2023-01-18 07:45 | DI.MAMMO_ITS ---
Exam(s) MAMMO SCREENING EXAM: MAMMO SCREENING CLINICAL HISTORY: screening,z12.39 TECHNIQUE: Mammograms were interpreted according to the usual protocol including computer analysis w [employer] CRE CAD system, tomosynthesis and C-view imaging. COMPARISON: 2016 through 2019 FINDINGS: The breasts are composed of heterogeneously dense fibroglandular densities, Breast Density category C . No suspicious masses or suspicious microcalcifications are seen. No skin thickening or abnormal axillary lymph nodes are seen. There has been no significant change from prior exams. IMPRESSION: BI-RADS Category 1, Negative mammogram. Yearly screening mammography is recommended. Breast Density Category C, heterogeneously Dense. The mammogram demonstrates the patient's breast tissue is dense. Dense breast tissue is very common a nd is not abnormal but dense breast tissue can make it harder to find cancer on a mammogram. Also, de nse breast tissue may increase breast cancer risk. This information about the result of the mammogram report was provided to the patient to raise their awareness. Use this report when you speak with the patient about their risks for breast cancer, which includes their family history. At that time, you may recommend additional screening tests (Ultrasound or MRI) as they might be useful based on their r isk. A negative radiographic report should not delay biopsy if a dominant or clinically suspicious mass is present. Up to ten percent of cancers are not identified on mammography. A negative report may reinforce clinical impression. Adenosis and dense breasts may obscure an underlying neoplasm. False positive reports average 6 to 10%.
== END 2023-01-18 02:03 ==
PROVIDERS: PCP Family Medicine; Visit Provider Family Medicine
DX: Z12.31 Encounter for screening mammogram for malignant neoplasm of breast (principal)
CPT/HCPCS: 77063; 77067

== ENCOUNTER → 2023-02-08 08:50 | Outpatient (BNVA) | payer MEDICARE, SELFPAY | PROVIDERS: PCP Family Medicine; Visit Provider Psychiatry & Neurology Neurology | DX: K59.2 Neurogenic bowel, not elsewhere classified (principal); N31.9 Neuromuscular dysfunction of bladder, unspecified; R53.83 Other fatigue; M48.061 Spinal stenosis, lumbar region without neurogenic claudication; R41.3 Other amnesia; G35 Multiple sclerosis | CPT/HCPCS: 99214 ==

== ENCOUNTER 2023-03-13 04:57 | Outpatient (CLI) | payer MEDICARE, SELFPAY ==
[2023-03-13 10:08] LABS: Anion Gap 6.8 mmol/L (3-11); BUN 20 mg/dL (7-18); CO2 31.2 mmol/L (21.0-32.0); CREATININE 0.7 mg/dL (0.55-1.02); Calcium 9.2 mg/dL (8.5-10.1); Chloride 99 mmol/L (98-107); Estimated GFR 101.44 (mL/min/1.73m2); Glucose 101 mg/dL (74-106); Potassium 4.8 mmol/L (3.5-5.1); Sodium 137 mmol/L (136-145)
== END 2023-03-13 04:58 | disposition home or self-care (01) ==
PROVIDERS: PCP Family Medicine; Visit Provider Family Medicine
DX: I10 Essential (primary) hypertension (principal)
CPT/HCPCS: 36415; 80048

== ENCOUNTER 2023-03-15 10:36 | Outpatient (CLI) | payer MEDICARE, SELFPAY ==
--- NOTE | 2023-03-15 10:15 | DI.RAD_ITS ---
Exam(s) XR HIP LT AP LAT ONLY EXAM: XR HIP LT AP LAT ONLY CLINICAL HISTORY: f/u L BELEN. TECHNIQUE: 2D digital imaging was performed. Two images were obtained. AP and lateral views were ob tained. COMPARISON: CR XR HIP LT COMPLETE AP PELVIS from 04/06/2022 FINDINGS: BONES: There are stable post operative changes present. No fracture or dislocation. JOINTS: The orthopedic hardware is in good position. No evidence of hardware loosening. SOFT TISSUE: Stable dystrophic calcification is seen in the soft tissues. IMPRESSION: Stable postoperative changes. DATA REPOSITORY: RADIATION DOSE DELIVERED:
== END 2023-03-15 10:37 | disposition home or self-care (01) ==
LOC: DIORS 10:36
PROVIDERS: PCP Family Medicine; Referring Provider Family Medicine; Visit Provider Student in an Organized Health Care Education/Training Program
DX: Z96.642 Presence of left artificial hip joint (principal); Z47.1 Aftercare following joint replacement surgery
CPT/HCPCS: 99213; 73502

== ENCOUNTER 2023-04-19 02:58 | Outpatient (CLI) | payer MEDICARE, SELFPAY ==
[2023-04-19 12:17] LABS: Bilirubin Negative (Negative); Blood Negative (Negative); Clarity Clear (Clear); Glucose Negative (Negative); Ketones Negative (Negative); Leukocyte Esterase Negative (Negative); Nitrite Negative (Negative); Specific Gravity 1.015 (1.005-1.025); Urobilinogen 0.2 mg/dL (Up to 0.2)
[2023-04-19 12:29] LABS: Anion Gap 4.5 mmol/L (3-11); BUN 16 mg/dL (7-18); CO2 33.5 mmol/L (21.0-32.0); CREATININE 0.6 mg/dL (0.55-1.02); Calcium 9.1 mg/dL (8.5-10.1); Chloride 95 mmol/L (98-107); Estimated GFR 105.28 (mL/min/1.73m2); Glucose 105 mg/dL (74-106); Potassium 4.2 mmol/L (3.5-5.1); Sodium 133 mmol/L (136-145)
[2023-04-24 12:15] LABS: Renin Activity, Plasma <0.6 ng/mL/h
== END 2023-04-19 02:59 | disposition home or self-care (01) ==
LOC: LBO 02:59
PROVIDERS: PCP Family Medicine; Visit Provider Nurse Practitioner Gerontology
DX: N31.9 Neuromuscular dysfunction of bladder, unspecified (principal); I10 Essential (primary) hypertension; M48.061 Spinal stenosis, lumbar region without neurogenic claudication; M54.16 Radiculopathy, lumbar region; N39.41 Urge incontinence; D64.9 Anemia, unspecified; R53.83 Other fatigue
CPT/HCPCS: 36415; 80048; 81003; 82088; 84244

== ENCOUNTER → 2023-04-26 09:49 | Outpatient (BNVA) | payer MEDICARE, SELFPAY | PROVIDERS: PCP Family Medicine; Visit Provider Nurse Practitioner Gerontology | DX: N31.9 Neuromuscular dysfunction of bladder, unspecified (principal); N39.41 Urge incontinence; R35.1 Nocturia; G35 Multiple sclerosis; I10 Essential (primary) hypertension | CPT/HCPCS: 51798; 99214 ==

== ENCOUNTER → 2023-07-09 10:26 | Outpatient (CLI) | payer MEDICARE, SELFPAY ==
--- NOTE | 2023-07-09 09:30 | DI.RAD_ITS ---
Exam(s) XR HIP RT COMPLETE AP PELVIS EXAM: XR HIP RT COMPLETE AP PELVIS INDICATION: right groin pain R10.31 RLQ PAIN. COMPARISON: CR XR HIP LT COMPLETE AP PELVIS from 04/06/2022 CR XR HIP LT AP LAT ONLY from 03/15/2023 TECHNIQUE: 2D digital imaging was performed. Three views. FINDINGS: There is image there trochanteric fracture of the right femur with approximately 90 degree angulation . Comminuted fragments are also seen. Previously existing soft tissue calcifications are again note d. The left hip prosthesis is unremarkable as visualized. There is hardware in the lower lumbar spi ne. IMPRESSION: Comminuted inter trochanteric fracture of the right femur. DATA REPOSITORY: RADIATION DOSE DELIVERED:
--- NOTE | 2023-07-09 09:30 | DI.US_ITS ---
Exam(s) US LOWER EXTREMITY VENOUS RT EXAM: US LOWER EXTREMITY VENOUS RT CLINICAL HISTORY: right groin pain, RLE swelling, DVT? M79.89. TECHNIQUE: Lower extremity venous ultrasound performed using grayscale, color-flow, and spectral Do ppler analysis. COMPARISON: No exams were available for comparison FINDINGS: The common femoral, femoral and popliteal veins demonstrate normal compressibility, augmentation, and color Doppler. The posterior tibial veins are patent. No saphenous vein thrombosis or other superfi cial venous thrombosis is seen. No hematoma or Rodriguez's cyst is seen. IMPRESSION: Negative lower extremity ultrasound. No evidence of DVT. DATA REPOSITORY:
== END ==
PROVIDERS: PCP Family Medicine; Visit Provider Nurse Practitioner Family
DX: M79.89 Other specified soft tissue disorders; S72.141A Displaced intertrochanteric fracture of right femur, initial encounter for closed fracture; Z96.641 Presence of right artificial hip joint; X58.XXXA Exposure to other specified factors, initial encounter
CPT/HCPCS: 73502; 93971

== ENCOUNTER 2023-07-09 11:00 | Inpatient (IN) | payer MEDICARE, SELFPAY ==
[2023-07-09 11:02] VITALS: BP 149/99; PULSE 74; RESP 18; TEMP 36.7; O2SAT 100
--- NOTE | 2023-07-09 11:19 | ED.GENADUL_ITS ---
Discharge Plan Disposition Patient Disposition: Admit to [facility] Discharge Details Chief Complaint: Orthopedic Clinical Impression: Closed intertrochanteric fracture of right hip Primary Care Provider: Elizabeth Nunn ED Provider: Schuyler Kirkpatrick [place] Meds and New Rx's Prescriptions: No Action triamcinolone acetonide [Nasacort] 55 mcg aerosol,spray 1 spray JAMEL BID melatonin 3 mg tablet 6 mg PO HS turmeric root extract 500 mg capsule 500 mg PO DAILY spironolactone 50 mg tablet 50 mg PO DAILY Qty: 90 1RF bupropion HCl 300 mg tablet extended release 24 hr 300 mg PO QAM Qty: 90 1RF desmopressin 0.2 mg tablet 0.4 mg PO HS Qty: 180 3RF duloxetine 60 mg capsule,delayed release(DR/EC) 60 mg PO DAILY Qty: 90 3RF lisinopril 40 mg tablet 40 mg PO DAILY Qty: 90 3RF diphenhydramine-acetaminophen [Tylenol PM Extra Strength] 1 EACH tablet 1 tab PO HS timolol maleate (PF) [Timoptic Ocudose (PF)] 1 EACH dropperette 1 drp Ophthalmic DAILY Rx Instructions: BOTH EYES B Complex Plus Vitamin C 1 EACH capsule 1 cap PO DAILY Probiotic and Acidophilus 1 EACH capsule 1 cap PO DAILY pedi multivit 17-iron fumarate 1 EACH tablet,chewable 2 tab PO DAILY calcium carbonate-vitamin D3 1 EACH tablet 1 ea PO DAILY glucosamine sulf-chondroitinSA 1 EACH capsule 1 ea PO BID cholecalciferol (vitamin D3) 5,000 UNIT tablet 5,000 unit PO DAILY dalfampridine [Ampyra] 10 mg tablet extended release 12 hr 10 mg PO BID Qty: 180 3RF omeprazole 20 mg capsule,delayed release(DR/EC) 20 mg PO DAILY Qty: 90 3RF baclofen 20 mg tablet 40 mg PO TID Qty: 540 3RF modafinil [Provigil] 200 mg tablet 200 mg PO BID Qty: 180 1RF metoprolol succinate 50 mg tablet extended release 24 hr 50 mg PO DAILY Qty: 90 3RF (DME) AFO Refurbishment - new leather and adjust plastic See Rx Instructions .Route .MEDSUPPLY Qty: 1 0RF Rx Instructions: As directed - please adjust as the prior is worn out. amlodipine 5 mg tablet 5 mg PO DAILY Qty: 90 3RF prednisone 50 mg tablet 50 mg PO DAILY Qty: 5 0RF magnesium 500 mg tablet 500 mg PO DAILY acetaminophen 500 mg tablet 1,000 mg PO Q8H PRN (Reason: pain) Qty: 90 3RF Medical Decision Making 58-year-old female with atraumatic pain of the right hip and lower extremity with associated bruising medial thigh. PCP evaluated the patient today and ordered x-ray and ultrasound. I reviewed ultrasound as interpreted by radiology: No DVT. I reviewed x-ray as interpreted by radiology: Comminuted intertrochanteric fracture of the right femur. Acetaminophen IV and Dilaudid IV given for pain. With no history of trauma, consider pathologic fracture. Plan to obtain CT of the hip/femur. I consulted Dr. Swan who evaluated the patient the emergency department. I discussed ED presentation course. He will admit the patient and follow-up on diagnostics pending. Lab Data Lab results reviewed: Yes I reviewed the patient's lab results. Labs: Laboratory Tests Range/Units 07/09/23 07/09/23 12:00 12:35 WBC (4.4-10.8) 10^3/uL 13.67 H RBC (3.93-5.22) 10^6/uL 3.27 L Hgb (11.2-15.7) g/dL 10.5 L Hct (36.0-46.0) % 31.4 L MCV (80-95) fL 96 H MCH (27.0-33.0) pg 32.1 MCHC (32.0-36.0) % 33.4 RDW (11.7-14.6) % 13.7 Plt Count (130-400) 10^3/uL 480 H MPV (8.0-11.0) fL 8.0 Immature Gran % 1.8 Neutrophils % 65.8 Lymphocytes % 20.0 Monocytes % 10.4 Eosinophils % 1.6 Basophils % 0.4 Nucleated RBC % (0.0-0.3) % 0.0 Absolute Neutrophils (1.2-6.7) 10^3/uL 8.99 H Absolute Lymphocytes (1.2-3.4) 10^3/uL 2.73 Absolute Monocytes (0.1-0.8) 10^3/uL 1.42 H Absolute Eosinophils (0.0-0.7) 10^3/uL 0.22 Absolute Basophils (0.0-0.2) 10^3/uL 0.05 Sodium (136-145) mmol/L 134 L Potassium (3.5-5.1) mmol/L 4.1 Chloride (98-107) mmol/L 96 L Carbon Dioxide (21.0-32.0) mmol/L 30.5 Anion Gap (3-11) mmol/L 7.5 BUN (7-18) mg/dL 15 Creatinine (0.55-1.02) mg/dL 0.6 Est GFR (CKD-EPI 2020) (mL/min/1.73m2) 104.63 Glucose (74-106) mg/dL 119 H Calcium (8.5-10.1) mg/dL 9.6 Total Bilirubin (0.2-1.0) mg/dL 0.5 AST (15-37) U/L 24 ALT (14-59) U/L 40 Alkaline Phosphatase (46-116) U/L 111 Total Protein (6.4-8.2) g/dL 7.1 Albumin (3.4-5.0) g/dL 3.6 HPI General Mode of arrival: ambulatory . Date/Time Provider Initiated Documentation: 07/09/23 11:16 . Limitations to Documentation: no limitations . Information obtained by: patient . HPI Narrative: 58-year-old female with history multiple sclerosis, of left-sided total hip replacement, here with right hip pain. Patient notes pain started while she was traveling to [place] about a week ago. Pain localized to right hip and pelvis. Pain is sharp. Patient saw PCP today who ordered x-ray and ultrasound of the right lower extremity. Ultrasound negative for DVT. X-ray concerning for hip fracture. Patient sent from [facility] to ED for further evaluation and treatment. Patient denies trauma. She does not recall any fall or specific injury. Related Data Home Medications Medication Instructions Recorded Confirmed Lactobacillus comb 1 cap PO DAILY 02/04/13 07/09/23 no.8-IAN-[id number] 300 million cell-250 mg capsule (Probiotic and Acidophilus) diphenhydramine 25 1 tab PO HS 02/04/13 07/09/23 mg-acetaminophen 500 mg tablet (Tylenol PM Extra Strength) pediatric multivit no.17-ferrous 2 tab PO DAILY 02/04/13 07/09/23 fumarate 15 mg iron chewable tablet timolol maleate (PF) 0.25 % eye 1 drp ophthalmic (eye) DAILY 02/04/13 07/09/23 drops in a dropperette (Timoptic Ocudose (PF)) vitamin B comp and C no.3 15 mg-10 1 cap PO DAILY 02/04/13 07/09/23 mg-50 mg-5 mg-300 mg capsule (B Complex Plus Vitamin C) calcium carbonate 600 mg-vitamin 1 ea PO DAILY 01/26/15 07/09/23 D3 5 mcg (200 unit) tablet cholecalciferol (vitamin D3) 125 5,000 unit PO DAILY 01/26/15 07/09/23 mcg (5,000 unit) tablet glucosamine sulfate 250 1 ea PO BID 01/26/15 07/09/23 mg-chondroitin sulfate A 200 mg capsule triamcinolone acetonide 55 mcg 1 spray intranasal BID 07/22/18 07/09/23 nasal spray aerosol (Nasacort) melatonin 3 mg tablet 6 mg PO HS 03/25/19 07/09/23 turmeric root extract 500 mg 500 mg PO DAILY 05/07/19 07/09/23 capsule acetaminophen 500 mg tablet 1,000 mg PO Q8H PRN pain #90 tabs 03/16/22 07/09/23 magnesium 500 mg tablet 500 mg PO DAILY 04/19/22 07/09/23 dalfampridine 10 mg 10 mg PO BID #180 tabs 08/16/22 07/09/23 tablet,extended release,12 hr (Ampyra) duloxetine 60 mg capsule,delayed 60 mg PO DAILY #90 caps 09/29/22 07/09/23 release lisinopril 40 mg tablet 40 mg PO DAILY #90 tabs 09/29/22 07/09/23 omeprazole 20 mg capsule,delayed 20 mg PO DAILY #90 caps 10/17/22 07/09/23 release desmopressin 0.2 mg tablet 0.4 mg PO HS #180 tabs 10/26/22 07/09/23 baclofen 20 mg tablet 40 mg PO TID #540 tabs 12/25/22 07/09/23 spironolactone 50 mg tablet 50 mg PO DAILY #90 tabs 02/09/23 07/09/23 bupropion HCl 300 mg 24 hr tablet, 300 mg PO QAM #90 tabs 03/16/23 07/09/23 extended release modafinil 200 mg tablet (Provigil) 200 mg PO BID #180 tabs 03/22/23 07/09/23 metoprolol succinate 50 mg 50 mg PO DAILY #90 tabs 03/26/23 07/09/23 tablet,extended release 24 hr AFO Refurbishment - new leather #1 ea 06/15/23 07/09/23 and adjust plastic amlodipine 5 mg tablet 5 mg PO DAILY #90 tabs 06/26/23 07/09/23 prednisone 50 mg tablet 50 mg PO DAILY #5 tabs 07/03/23 07/09/23 Previous Rx's Medication Instructions Recorded acetaminophen 500 mg tablet 1,000 mg PO Q8H PRN pain #90 tabs 03/16/22 dalfampridine 10 mg 10 mg PO BID #180 tabs 08/16/22 tablet,extended release,12 hr (Ampyra) duloxetine 60 mg capsule,delayed 60 mg PO DAILY #90 caps 09/29/22 release lisinopril 40 mg tablet 40 mg PO DAILY #90 tabs 09/29/22 omeprazole 20 mg capsule,delayed 20 mg PO DAILY #90 caps 10/17/22 release desmopressin 0.2 mg tablet 0.4 mg PO HS #180 tabs 10/26/22 baclofen 20 mg tablet 40 mg PO TID #540 tabs 12/25/22 spironolactone 50 mg tablet 50 mg PO DAILY #90 tabs 02/09/23 bupropion HCl 300 mg 24 hr tablet, 300 mg PO QAM #90 tabs 03/16/23 extended release modafinil 200 mg tablet (Provigil) 200 mg PO BID #180 tabs 03/22/23 metoprolol succinate 50 mg 50 mg PO DAILY #90 tabs 03/26/23 tablet,extended release 24 hr AFO Refurbishment - new leather #1 ea 06/15/23 and adjust plastic amlodipine 5 mg tablet 5 mg PO DAILY #90 tabs 06/26/23 prednisone 50 mg tablet 50 mg PO DAILY #5 tabs 07/03/23 Allergies Allergy/AdvReac Type Severity Reaction Status Date / Time Sulfa (Sulfonamide Allergy Intermediate SKIN RASH Verified 07/09/23 09:04 Antibiotics) Penicillins Allergy Unknown RASH Verified 07/09/23 09:04 chlorthalidone AdvReac Severe Hyponatremi Verified 07/09/23 09:04 a codeine AdvReac Unknown NAUSEA Verified 07/09/23 09:04 General Stated Complaint: Orthopedic LAI: 3 Review of Systems Musculoskeletal Musculoskeletal: Reports as per HPI Neurologic Neurologic: Denies sensory deficit PFSH All Active Problems (Updated 07/09/23 @ 12:55 by Schuyler Kirkpatrick MD) Closed intertrochanteric fracture of right hip (Acute) Closed comminuted intertrochanteric fracture of right femur (Acute ~06/2023) Foot pain (Acute) Arthritis (Acute) Pes planus (Acute) Anemia (Acute) Essential hypertension (Chronic 09/02/13) Foot drop, left (Acute 05/17/15) Multiple sclerosis (Chronic 1991) Neurogenic bladder (Acute 01/13/16) Spasticity (Chronic 05/17/15) Synovial cyst of popliteal space (Acute) Urge incontinence of urine (Acute 08/08/12) Memory loss (Chronic) Depression (Chronic) Fatigue (Acute) Acquired pes planus of right foot (Chronic) chronic pain in foot; possible surgery Constipation due to neurogenic bowel (Acute) Medical History Closed subcapital fracture of left femur S/P L BELEN --DOS 03/15/22 GERD (gastroesophageal reflux disease) Left carpal tunnel syndrome managed non-surgically Murmur, cardiac Optic neuritis Spinal stenosis of lumbar region with radiculopathy Surgical History S/P left knee arthroscopy partial medial meniscectomy, L S/P ovarian cystectomy S/P tonsillectomy and adenoidectomy Status post bunionectomy Status post lumbar laminectomy (~07/2022) Status post myringotomy with insertion of tube 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 Social History Smoking/Tobacco Use Status: Former Tobacco Use tobacco type: cigarettes Quit Date: 11/12/07 Tobacco: How many years used: 12 Second Hand Exposure: Yes Smoking risk assessment performed?: Yes Alcohol Intake: current Alcohol Intake frequency: a few times a month Alcohol type: beer, wine and hard liquor Drug use: Daily Substance use type: marijuana Caregiver/Support person: No Household members: spouse Housing: house Number of Children: 1 Communication Needs: None Do you need help understanding health information?: Never current occupation: [employer] 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 Pets and animals: Yes Pets and animals: cat(s) Sexually active: Yes Do you think of yourself as: straight/heterosexual Current gender identity: female What is your relationship status?: How often do you talk on the phone with friends or family?: never How often do you get together with friends or relatives?: never How often do you attend orthodoxy or evangelical services?: decline to answer Do you belong to any clubs or organized social groups?: no Panel score (0-1 are the most socially isolated patients): 1 What type of physical activity do you participate in: bicycling Duration: 15-30 minutes/day Frequency: 3-4 times per week Veda/Congregational: None Special veda needs: No Seatbelt use: always Helmet use: Yes Helmet use: sometimes Drive intox or ride w/intox limo driver: No Do you feel safe at home: Yes Do you feel safe in your relationship?: Yes Additional Social history: Enjoys reading, cross-stitch. Exam Const General: cooperative and no acute distress [facility] Head: normocephalic and atraumatic Mouth: moist mucous membranes Eyes Conjunctivae: normal conjunctivae Sclera: normal sclerae Neck Neck: trachea midline and supple Resp Auscultation: clear to auscultation bilaterally, no rales, no rhonchi and no wheezes Cardio Rate: regular rate and not tachycardic Rhythm: regular rhythm GI Palpation: soft, not firm, no guarding, no masses, not rigid and nontender Skin General skin exam: no rashes or lesions noted Neuro General: patient alert, patient awake and tone normal Extrem Right lower extremity: hip/thigh Details: tenderness, abnormal ROM and ecchymosis (Medial right thigh) and foot Details: normal capillary refill Psych Appearance: grossly normal Mental Status: mental status grossly normal Course Vital Signs Vital signs: Vital Signs Temperature 36.7 C 07/09/23 11:02 Pulse 74 07/09/23 11:02 Respiratory Rate 18 07/09/23 11:02 Blood Pressure 149/99 H 07/09/23 11:02 Pulse Oximetry 100 07/09/23 11:02 Temperature 36.7 C 07/09/23 11:02 Pulse 74 07/09/23 11:02 Respiratory Rate 18 07/09/23 11:02 Respiratory Effort Normal 07/09/23 11:15 Blood Pressure 149/99 H 07/09/23 11:02 Pulse Oximetry 100 07/09/23 11:02 Oxygen Delivery Method Room Air 07/09/23 11:02 Oxygen Flow Rate 0 07/09/23 11:02 Pain Level 9 07/09/23 11:02
--- NOTE | 2023-07-09 11:30 | DI.CT_ITS ---
Exam(s) CT LOWER EXTREMITY RT WO EXAM: CT LOWER EXTREMITY RT WO CLINICAL HISTORY: hip fracture, atraumatic. TECHNIQUE: Imaging Protocol: Axial computed tomography images with coronal and sagittal reformatted images were created and reviewed. CONTRAST MATERIAL: Noncontrast COMPARISON: CR XR HIP RT COMPLETE AP PELVIS from 07/09/2023 FINDINGS: Bones: There is a comminuted intertrochanteric fracture of the right femur. There is significant heather us angulation to 90 degrees. There is no underlying suspicious bony lesion. The bones are diffusely osteoporotic. Joints: There are mild degenerative changes of the right hip. Soft Tissues: There is some soft tissue swelling seen laterally and chronic calcifications in the s ubcutaneous fat of the right buttock. A large quantity of stool is noted in the visualized portions of the colon. IMPRESSION: Intertrochanteric fracture of the right femur. Osteoporotic appearing bones. No suspicious underlyi ng bony lesion is identified. RADIATION DOSE DELIVERED: 349.72mGy.cm Total DLP DATA REPOSITORY: All CT scans at this facility are submitted to the National Radiology Data Registry (NRDR) Dose Index Registry (DIR) with the [employer] (ACR). RADIATION OPTIMIZATION: All CT scans at this facility use at least one of these dose optimization te chniques: automated exposure control; mA and/or kV adjustment per patient size (includes targeted exa ms where dose is matched to clinical indication); or iterative reconstruction.
[2023-07-09] MEDS: HYDROmorphone 2 MG/ML SYR 0.5 MG IVP ×2 (12:18→21:22)
[2023-07-09] MEDS: ACETAMINOPHEN 1,000 MG/100 ML BTL 400 MG IVPB (12:19)
[2023-07-09 12:24] LABS: ALT 40 U/L (14-59); AST 24 U/L (15-37); Albumin 3.6 g/dL (3.4-5.0); Alkaline Phosphatase 111 U/L (46-116); Anion Gap 7.5 mmol/L (3-11); BUN 15 mg/dL (7-18); Bilirubin, Total 0.5 mg/dL (0.2-1.0); CO2 30.5 mmol/L (21.0-32.0); CREATININE 0.6 mg/dL (0.55-1.02); Calcium 9.6 mg/dL (8.5-10.1); Chloride 96 mmol/L (98-107); Estimated GFR 104.63 (mL/min/1.73m2); Glucose 119 mg/dL (74-106); Potassium 4.1 mmol/L (3.5-5.1); Sodium 134 mmol/L (136-145); Total Protein 7.1 g/dL (6.4-8.2)
[2023-07-09 12:44] LABS: Abs Immature Grans 0.24 10^3/uL (0.0-0.06); Absolute Eosinophil Count 0.22 10^3/uL (0.0-0.7); Absolute Lymphocyte Count 2.73 10^3/uL (1.2-3.4); Absolute Monocyte Count 1.42 10^3/uL (0.1-0.8); Basophils % 0.4; Eosinophils % 1.6; HCT 31.4 % (36.0-46.0); HGB 10.5 g/dL (11.2-15.7); Immature Grans % 1.8; MCH 32.1 pg (27.0-33.0); MCHC 33.4 % (32.0-36.0); MCV 96 fL (80-95); Monocytes % 10.4; Neutrophils % 65.8; Platelet Count 480 10^3/uL (130-400); RBC 3.27 10^6/uL (3.93-5.22); RDW 13.7 % (11.7-14.6); RDW-SD 47.5 fL; WBC 13.67 10^3/uL (4.4-10.8)
[2023-07-09 12:48] LABS: Absolute Basophil Count 0.05 10^3/uL (0.0-0.2); Absolute Neutrophil Count 8.99 10^3/uL (1.2-6.7)
[2023-07-09 14:18] VITALS: BP 137/89; PULSE 80; RESP 18; TEMP 36.8; O2SAT 97
[2023-07-09] MEDS: Baclofen 10 MG TAB 40 MG PO (19:54)
[2023-07-09] MEDS: Acetaminophen 500 MG TAB PO (21:22)
[2023-07-09] MEDS: diphenhydrAMINE 25 MG CAP PO (21:22)
--- NOTE | 2023-07-09 21:24 | W.ORTHOCONSU ---
Date of service: 07/09/23 Time of Service: 16:30 History of Present Illness History of Present Illness Chief Complaint: Right Hip Pain Narrative: Steffi is a 58-year-old female who I know from previous musculoskeletal complaints and previous left hip fracture status post total hip replacement. She did very well from her left hip replacement and has recently undergone back surgery as well. She is awaiting evaluation for a chronic flatfoot deformity as well. She has significant multiple sclerosis which is severely limiting but has been relatively under good control as of late. She was in [place] visiting some friends when on Sunday she started developing right hip pain. She thought this was an exacerbation of her MS. She contacted her neurologist and started on some prednisone. However, she not find any significant improvement. He was therefore recommend that she go to the emergency department. However, she did not want to go in [place] and waited until she returned back to [place]. She flew back on Sunday getting in late Sunday night. She had significant pain about the right hip throughout the entire trip. However, she did not want to go into the hospital over the weekend. She has not been able to mobilize due to the pain in the right hip and presented to the emergency department today due to this pain. She denies any falls. No trauma. She denies numbness or tingling. She denies any pain in the right hip prior to this current injury. She denies any cancer history. She denies any recent chest pain or shortness of breath. Consults Consult date: 07/09/23 Requesting physician: Schuyler Kirkpatrick Consult Reason Right hip fracture Assessment and Plan Assessment and plan (1) Closed comminuted intertrochanteric fracture of right femur: Status: Acute Assessment and plan: Steffi is a 58-year-old who has a quite bizarre story of pain about the right hip and limited weightbearing which was diagnosed as a comminuted intratrochanteric fracture of the right hip. Without trauma this is very suspicious. She could have been developing a stress type reaction that then completed itself. I am concerned about a pathologic fracture but there still is no sign of that at all on the CT or the x-ray. Nevertheless she has been dealing with this for 7 days which may be the reason why there is comminution and some the appearance that I see on the CT scan. And without overt signs of pathology and without any previous history and no other symptoms I have to expect that this is an osteoporotic fracture. I recommend proceeding with operative fixation. This would consist of intramedullary nail fixation. She was quite disappointed as she had an excellent result with hip replacement in the left side. However, due to the amount of involvement of the greater trochanter and the intertrochanteric region hip replacement would be risky for potential complication. I discussed the technical features of intraperitoneal fixation. I reviewed the risk to include bleeding, infection, pain, stiffness, malunion, nonunion, shortening, malrotation, damage to nerves and vessels, damage to muscle and tendons, need for repeat procedures, avascular necrosis, blood clot. Despite these risk, she elects to proceed. She will be n.p.o. after midnight tonight. No other major medical issues were seen to be out of control and therefore no hospice consultation required. Review of Systems All systems reviewed & are unremarkable except as noted in HPI and below PFSH All Active Problems Closed intertrochanteric fracture of right hip (Acute) Closed comminuted intertrochanteric fracture of right femur (Acute ~06/2023) Foot pain (Acute) Arthritis (Acute) Pes planus (Acute) Anemia (Acute) Essential hypertension (Chronic 09/02/13) Foot drop, left (Acute 05/17/15) Multiple sclerosis (Chronic 1991) Neurogenic bladder (Acute 01/13/16) Spasticity (Chronic 05/17/15) Synovial cyst of popliteal space (Acute) Urge incontinence of urine (Acute 08/08/12) Memory loss (Chronic) Depression (Chronic) Fatigue (Acute) Acquired pes planus of right foot (Chronic) chronic pain in foot; possible surgery Constipation due to neurogenic bowel (Acute) Medical History Closed subcapital fracture of left femur S/P L BELEN --DOS 03/15/22 GERD (gastroesophageal reflux disease) Left carpal tunnel syndrome managed non-surgically Murmur, cardiac Optic neuritis Spinal stenosis of lumbar region with radiculopathy Surgical History S/P left knee arthroscopy partial medial meniscectomy, L S/P ovarian cystectomy S/P tonsillectomy and adenoidectomy Status post bunionectomy Status post lumbar laminectomy (~07/2022) Status post myringotomy with insertion of tube 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 Social History Smoking/Tobacco Use Status: Former Tobacco Use tobacco type: cigarettes Quit Date: 11/12/07 Tobacco: How many years used: 12 Second Hand Exposure: Yes Smoking risk assessment performed?: Yes Alcohol Intake: current Alcohol Intake frequency: a few times a month Alcohol type: beer, wine and hard liquor Drug use: Daily Substance use type: marijuana Caregiver/Support person: No Household members: spouse Housing: other Number of Children: 1 Communication Needs: None Do you need help understanding health information?: Never current occupation: [employer] 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 Pets and animals: Yes Pets and animals: cat(s) Sexually active: Yes Do you think of yourself as: straight/heterosexual Current gender identity: female What is your relationship status?: How often do you talk on the phone with friends or family?: never How often do you get together with friends or relatives?: never How often do you attend confucianism or protestant services?: decline to answer Do you belong to any clubs or organized social groups?: no Panel score (0-1 are the most socially isolated patients): 1 What type of physical activity do you participate in: bicycling Duration: 15-30 minutes/day Frequency: 3-4 times per week Veda/Rastafari: None Special veda needs: No Seatbelt use: always Helmet use: Yes Helmet use: sometimes Drive intox or ride w/intox concrete 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 Exam Narrative Exam Narrative: Resting in the hospital bed. No acute distress. Alert and orient x3. Evaluation of the right lower extremity shows a shortened and slightly externally rotated limb. There is a chronic appearing pronating EVAR deformity of the right foot with prominence over the medial midfoot and navicular head. There is no pain to palpation of the knee. There is exquisite pain to palpation proximally about the right thigh. No overlying skin changes. She reports intact sensation to the deep and superficial peroneal nerve and tibial nerve. Cardio Rate: regular rate Rhythm: regular rhythm Results Last Vital Signs Temp 36.8 C 07/09/23 14:18 Pulse 80 07/09/23 14:18 Resp 18 07/09/23 14:18 BP 137/89 07/09/23 14:18 Pulse Ox 97 07/09/23 14:18 Labs 07/09/23 12:35 07/09/23 12:00 Labs: Laboratory Results - last 24 hr 07/09/23 07/09/23 07/09/23 12:00 12:00 12:35 WBC 13.67 H RBC 3.27 L Hgb 10.5 L Hct 31.4 L MCV 96 H MCH 32.1 MCHC 33.4 RDW 13.7 Plt Count 480 H MPV 8.0 Immature Gran % 1.8 Neutrophils % 65.8 Lymphocytes % 20.0 Monocytes % 10.4 Eosinophils % 1.6 Basophils % 0.4 Nucleated RBC % 0.0 Absolute Neutrophils 8.99 H Absolute Lymphocytes 2.73 Absolute Monocytes 1.42 H Absolute Eosinophils 0.22 Absolute Basophils 0.05 Sodium 134 L Potassium 4.1 Chloride 96 L Carbon Dioxide 30.5 Anion Gap 7.5 BUN 15 Creatinine 0.6 Est GFR (CKD-EPI 2020) 104.63 Glucose 119 H Calcium 9.6 Total Bilirubin 0.5 AST 24 ALT 40 Alkaline Phosphatase 111 Total Protein 7.1 Albumin 3.6 Patient ABO/Rh O Positive Antibody Screen NEGATIVE Imaging Imaging Studies: X-ray of the right hip shows a comminuted basicervical/intertrochanteric fracture of the right hip. There is some comminution of the fracture region of the greater trochanter. CT scan of the right hip shows a similar finding with notable small comminution at the base of the femoral neck and into the greater trochanter. There is a questionable area of lucency or at least of bone which is not present which could be due to the fact that is a chronic injury in nature but there is no reactivity of the bone or sclerotic changes around the bone or other soft tissue mass to speak otherwise.
[2023-07-09] MEDS: Desmopressin 0.2 MG TAB 0.4 MG PO (21:40)
[2023-07-09 23:29] VITALS: BP 148/80; PULSE 84; RESP 18; TEMP 36.8; O2SAT 94
[2023-07-10] VITALS (14 sets, daily range): BP systolic 84–135; BP diastolic 64–83; PULSE 75–118; RESP 15–23; TEMP 36.4–37.1; O2SAT 93–100; BMI 25.9
[2023-07-10] MEDS: HYDROmorphone 2 MG/ML SYR 0.5 MG IVP ×2 (03:22→08:24)
[2023-07-10] MEDS: DULoxetine 30 MG CAP 60 MG PO (08:09)
[2023-07-10] MEDS: Baclofen 10 MG TAB 40 MG PO ×2 (08:10→19:21)
[2023-07-10] MEDS: buPROPion-XL 150 MG TABCR 300 MG PO (08:11)
[2023-07-10] MEDS: amLODIPine 5 MG TAB PO (08:12)
[2023-07-10] MEDS: Cholecalciferol (Vitamin D3) 1,000 UNIT TAB 5000 UNITS PO (08:12)
[2023-07-10] MEDS: Omeprazole 20 MG CAPCR PO (08:13)
[2023-07-10] MEDS: Calcium 600mg/Vit D 200U TAB 1 TAB PO (08:13)
[2023-07-10] MEDS: Vitamins B Comp w/C TAB 1 TAB PO (08:13)
[2023-07-10] MEDS: Lactobacillus Acidophilus CAP 1 CAP PO (08:24)
[2023-07-10] MEDS: Normal Saline Flush 10 ML SYR IVP ×2 (08:25→09:14)
[2023-07-10] MEDS: Normal Saline 1,000 ML 80 ML IV (09:16)
--- NOTE | 2023-07-10 09:34 | INITIAL_ITS ---
Date of service: 07/10/23 Time of Service: 09:35 Care Management Initial Assmt Initial Assessment REASON FOR HOSPITALIZATION:: Right hip fracture PREVIOUS FUNCTIONAL STATUS/SOCIAL/FAMILY SUPPORTS:: Steffi lives in [place] with her Pepe. Their only daughter lives in [place], [place]. Steffi formerly worked at [employer] but was forced into early snf due to worsening symptoms of Multiple Sclerosis. Steffi takes care of her home and is independent at baseline with her ADLs. She states her is a windlace machine operator, so he does all of the cooking. CURRENT FUNCTIONAL STATUS:: Steffi is lying in bed when CM comes to meet with her. She is pleasant and talkative. She shares she has no idea how she broke her hip as she did not fall and does not recall bumping into anything hard enough to break a bone. She is going to the OR at some point today for a fixation. Her only concern is to not be able to walk after the surgery but she says Dr. Swan has reassured her that the surgery will not impact her ability to walk. ADVANCE DIRECTIVES:: On file; Pepe Coker is appointed as HCA. Has patient been provided with info about the portal/API?: Yes Did the patient sign up for the portal?: Yes (previously enrolled) CODE STATUS:: Full Code INSURANCE COVERAGE / FINANCIAL ISSUES:: Medicare and Financial Asst 85 CURRENT HOME/COMMUNITY SERVICES/EQUIPMENT:: No home or community services. Patient has a cane, rollator, and shower bench and grab bars. She and her reside in a mobile home with a ramp leading to the front door. PRIMARY CARE PHYSICIAN:: Elizabeth Nunn MD POTENTIAL DISCHARGE NEEDS:: Follow up appointments with PCP and Dr. Swan and discharge plan of care. PATIENT/FAMILY EDUCATION NEEDS:: Review of discharge instructions including me dications, limitations and follow up plan of care; discuss Ask Me Three and self management. ANTICIPATED BARRIERS TO DISCHARGE:: None. TRANSPORTATION:: Via private vehicle with . PLAN:: Steffi will likely be discharged home when medically cleared by provider. PT will evaluate her need for physical therapy prior to discharge. She will follow up with her PCP, surgeon and plan of care as instructed. She will be transported home by her via private vehicle when ready. CM will continue to folllow. PFSH All Active Problems Closed intertrochanteric fracture of right hip (Acute) Closed comminuted intertrochanteric fracture of right femur (Acute ~06/2023) Foot pain (Acute) Arthritis (Acute) Pes planus (Acute) Anemia (Acute) Essential hypertension (Chronic 09/02/13) Foot drop, left (Acute 05/17/15) Multiple sclerosis (Chronic 1991) Neurogenic bladder (Acute 01/13/16) Spasticity (Chronic 05/17/15) Synovial cyst of popliteal space (Acute) Urge incontinence of urine (Acute 08/08/12) Memory loss (Chronic) Depression (Chronic) Fatigue (Acute) Acquired pes planus of right foot (Chronic) chronic pain in foot; possible surgery Constipation due to neurogenic bowel (Acute) Medical History Closed subcapital fracture of left femur S/P L BELEN --DOS 03/15/22 GERD (gastroesophageal reflux disease) Left carpal tunnel syndrome managed non-surgically Murmur, cardiac Optic neuritis Spinal stenosis of lumbar region with radiculopathy Surgical History S/P left knee arthroscopy partial medial meniscectomy, L S/P ovarian cystectomy S/P tonsillectomy and adenoidectomy Status post bunionectomy Status post lumbar laminectomy (~07/2022) Status post myringotomy with insertion of tube 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 Social History Smoking/Tobacco Use Status: Former Tobacco Use tobacco type: cigarettes Quit Date: 11/12/07 Tobacco: How many years used: 12 Second Hand Exposure: Yes Smoking risk assessment performed?: Yes Alcohol Intake: current Alcohol Intake frequency: a few times a month Alcohol type: beer, wine and hard liquor Drug use: Daily Substance use type: marijuana Caregiver/Support person: No Household members: spouse Housing: other Number of Children: 1 Communication Needs: None Do you need help understanding health information?: Never current occupation: [employer] 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 Pets and animals: Yes Pets and animals: cat(s) Sexually active: Yes Do you think of yourself as: straight/heterosexual Current gender identity: female What is your relationship status?: How often do you talk on the phone with friends or family?: never How often do you get together with friends or relatives?: never How often do you attend rastafari or jainism services?: decline to answer Do you belong to any clubs or organized social groups?: no Panel score (0-1 are the most socially isolated patients): 1 What type of physical activity do you participate in: bicycling Duration: 15-30 minutes/day Frequency: 3-4 times per week Veda/Orthodoxy: None Special veda needs: No Seatbelt use: always Helmet use: Yes Helmet use: sometimes Drive intox or ride w/intox regional o[employer] company driver: No Do you feel safe at home: Yes Do you feel safe in your relationship?: Yes Additional Social history: Enjoys reading, cross-stitch.
--- NOTE | 2023-07-10 11:22 | ANES.PREOP_ITS ---
General Info Date of Service Date Performed: 07/10/23 Height: 5 ft Weight: 60.328 kg Body Mass Index (BMI): 25.9 Surgical Procedure: Operation Date: 07/10/23 16:00 Proposed Procedure Side Surgeon p Hip TFNA Right Joseph Swan MD Meds Allergies and Home Medications Allergies Allergy/AdvReac Type Severity Reaction Status Date / Time Sulfa (Sulfonamide Allergy Intermediate SKIN RASH Verified 07/09/23 09:04 Antibiotics) Penicillins Allergy Unknown RASH Verified 07/09/23 09:04 chlorthalidone AdvReac Severe Hyponatremi Verified 07/09/23 09:04 a codeine AdvReac Unknown NAUSEA Verified 07/09/23 09:04 Home Medication Medication Instructions Recorded Lactobacillus comb 1 cap PO DAILY 02/04/13 no.0-[id number] 300 million cell-250 mg capsule (Probiotic and Acidophilus) diphenhydramine 25 1 tab PO HS 02/04/13 mg-acetaminophen 500 mg tablet (Tylenol PM Extra Strength) pediatric multivit no.17-ferrous 2 tab PO DAILY 02/04/13 fumarate 15 mg iron chewable tablet timolol maleate (PF) 0.25 % eye 1 drp ophthalmic (eye) DAILY 02/04/13 drops in a dropperette (Timoptic Ocudose (PF)) vitamin B comp and C no.3 15 mg-10 1 cap PO DAILY 02/04/13 mg-50 mg-5 mg-300 mg capsule (B Complex Plus Vitamin C) calcium carbonate 600 mg-vitamin 1 ea PO DAILY 01/26/15 D3 5 mcg (200 unit) tablet cholecalciferol (vitamin D3) 125 5,000 unit PO DAILY 01/26/15 mcg (5,000 unit) tablet glucosamine sulfate 250 1 ea PO BID 01/26/15 mg-chondroitin sulfate A 200 mg capsule triamcinolone acetonide 55 mcg 1 spray intranasal BID 07/22/18 nasal spray aerosol (Nasacort) melatonin 3 mg tablet 6 mg PO HS 03/25/19 turmeric root extract 500 mg 500 mg PO DAILY 05/07/19 capsule acetaminophen 500 mg tablet 1,000 mg PO Q8H PRN pain #90 tabs 03/16/22 magnesium 500 mg tablet 500 mg PO DAILY 04/19/22 dalfampridine 10 mg 10 mg PO BID #180 tabs 08/16/22 tablet,extended release,12 hr (Ampyra) duloxetine 60 mg capsule,delayed 60 mg PO DAILY #90 caps 09/29/22 release lisinopril 40 mg tablet 40 mg PO DAILY #90 tabs 09/29/22 omeprazole 20 mg capsule,delayed 20 mg PO DAILY #90 caps 10/17/22 release desmopressin 0.2 mg tablet 0.4 mg PO HS #180 tabs 10/26/22 baclofen 20 mg tablet 40 mg PO TID #540 tabs 12/25/22 spironolactone 50 mg tablet 50 mg PO DAILY #90 tabs 02/09/23 bupropion HCl 300 mg 24 hr tablet, 300 mg PO QAM #90 tabs 03/16/23 extended release modafinil 200 mg tablet (Provigil) 200 mg PO BID #180 tabs 03/22/23 metoprolol succinate 50 mg 50 mg PO DAILY #90 tabs 03/26/23 tablet,extended release 24 hr AFO Refurbishment - new leather #1 ea 06/15/23 and adjust plastic amlodipine 5 mg tablet 5 mg PO DAILY #90 tabs 06/26/23 prednisone 50 mg tablet 50 mg PO DAILY #5 tabs 07/03/23 Current Visit Medications: Current Medications Generic Name Dose Route Start Last Admin Trade Name Reid PRN Reason Stop Dose Admin Acetaminophen 500 mg 07/09/23 22:00 07/09/23 21:22 Acetaminophen 500 Mg Tab PO 500 mg HS WAYNE Administration Acidophilus/Pectin 1 cap 07/10/23 08:30 07/10/23 08:24 Lactobacillus Acidophilus Cap PO 1 cap DAILY WAYNE Administration Amlodipine Besylate 5 mg 07/10/23 08:30 07/10/23 08:12 Amlodipine 5 Mg Tab PO 5 mg DAILY WAYNE Administration Baclofen 40 mg 07/09/23 20:00 07/10/23 08:10 Baclofen 10 Mg Tab PO 40 mg TID WAYNE Administration Bupropion HCl 300 mg 07/10/23 08:30 07/10/23 08:11 Bupropion-Xl 150 Mg Tabcr PO 300 mg QAM WAYNE Administration Calcium/Vitamin D 1 tab 07/10/23 08:30 07/10/23 08:13 Calcium 600mg/Vit D 200u Tab PO 1 tab DAILY WAYNE Administration Cholecalciferol 5,000 units 07/10/23 08:30 07/10/23 08:12 Cholecalciferol (Vitamin D3) 1,000 Unit Tab PO 5,000 units DAILY WAYNE Administration Desmopressin Acetate 0.4 mg 07/09/23 22:00 07/09/23 21:40 Desmopressin 0.2 Mg Tab PO 0.2 mg HS WAYNE Administration Diphenhydramine HCl 25 mg 07/09/23 22:00 07/09/23 21:22 Diphenhydramine 25 Mg Cap PO 25 mg HS WAYNE Administration Docusate Sodium 100 mg 07/09/23 17:00 Docusate Sodium 100 Mg/10 Ml Cup PO TID PRN PRN Duloxetine HCl 60 mg 07/10/23 08:30 07/10/23 08:09 Duloxetine 30 Mg Cap PO 60 mg DAILY WAYNE Administration Hydromorphone HCl 0.5 mg 07/09/23 14:06 07/10/23 08:24 Hydromorphone 2 Mg/Ml Syr IVP 0.5 mg Q1H PRN Administration Sodium Chloride 1,000 mls @ 80 mls/hr 07/10/23 09:15 07/10/23 09:16 Saline 1000ml Bag IV 80 mls/hr INFUSION WAYNE Administration IV Miscellaneous Supplies 1 each 07/09/23 11:30 [facility] IV DIRECTED WAYNE IV Miscellaneous Supplies 1 each 07/09/23 13:30 [facility] IV DIRECTED WAYNE Lisinopril 40 mg 07/10/23 08:30 07/10/23 08:05 Lisinopril 20 Mg Tab PO Not Given DAILY WAYNE Metoprolol Succinate 50 mg 07/12/23 08:30 Metoprolol Cr 50 Mg Tabcr PO DAILY WAYNE Omeprazole 20 mg 07/10/23 08:30 07/10/23 08:13 Omeprazole 20 Mg Capcr PO 20 mg DAILY WAYNE Administration Patient's Own 1 each 07/10/23 08:30 07/10/23 09:09 Medication ( PO 1 each Dalfampridine 10 Mg BID WAYNE Administration Tablet) Patient's Own 1 each 07/10/23 08:30 07/10/23 09:10 Medication ( PO 1 each Modafinil 200 Mg BID WAYNE Administration Tablet) Patient's Own 1 each 07/10/23 08:30 Medication (Turmeric PO 500 Mg) DAILY WAYNE Patient's Own 1 each 07/10/23 08:30 Medication (Nasacort NS Nasal Perry) BID WAYNE Polyethylene Glycol 17 gm 07/09/23 17:00 Polyethylene Glycol 3350 17 Gm Packet PO BID PRN PRN Sodium Chloride 0 ml 07/09/23 11:19 07/10/23 09:14 Normal Saline Flush 10 Ml Syr IVP 10 ml PRN PRN Administration Sodium Chloride 0 ml 07/09/23 13:26 Normal Saline Flush 10 Ml Syr IVP PRN PRN Spironolactone 50 mg 07/12/23 08:30 Spironolactone 50 Mg Tab PO DAILY WAYNE Timolol Maleate 0 ml 07/10/23 08:30 07/10/23 09:19 Timolol 0.5% 5 Ml Btl OP Not Given DAILY WAYNE Vitamin B Complex/Vitamin C 1 tab 07/10/23 08:30 07/10/23 08:13 Vitamins B Comp W/C Tab PO 1 tab DAILY WAYNE Administration PFSH Active Problems Active Problems: Problem Status Onset Code Closed intertrochanteric fracture of right hip S72.141A Closed comminuted intertrochanteric fracture of right femur ~06/2023 S72.141A Foot pain M79.673 Arthritis M19.90 Pes planus M21.40 Anemia D64.9 Essential hypertension 09/02/13 I10 Foot drop, left 05/17/15 M21.372 Multiple sclerosis 1991 G35 Neurogenic bladder 01/13/16 N31.9 Spasticity 05/17/15 R25.2 Synovial cyst of popliteal space M71.20 Urge incontinence of urine 08/08/12 N39.41 Memory loss R41.3 Depression F32.9 Fatigue R53.83 Acquired pes planus of right foot M21.41 Constipation due to neurogenic bowel K59.00, K59.2 Medical History Medical History Closed subcapital fracture of left femur S/P L BELEN --DOS 03/15/22 GERD (gastroesophageal reflux disease) Left carpal tunnel syndrome managed non-surgically Murmur, cardiac Optic neuritis Spinal stenosis of lumbar region with radiculopathy Surgical History Surgical History S/P left knee arthroscopy partial medial meniscectomy, L S/P ovarian cystectomy S/P tonsillectomy and adenoidectomy Status post bunionectomy Status post lumbar laminectomy (~07/2022) Status post myringotomy with insertion of tube 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 Tobacco Smoking/Tobacco Use Status: Former Tobacco Use Passive smoking exposure: Yes Second hand exposure: Yes Alcohol Alcohol Intake: current Alcohol intake frequency: a few times a month Alcohol type: beer, wine and hard liquor Substance Use Substance use: Daily Substance use type: marijuana Vital Signs and Lab Results Vital Signs Most Recent Vital Signs in EMR: Most Recent Vital Signs Temp Pulse Resp BP Pulse Ox 36.6 C 75 16 135/64 98 07/10/23 07:02 07/10/23 07:02 07/10/23 07:02 07/10/23 07:02 07/10/23 07:02 Lab Results 07/09/23 12:35 07/09/23 12:00 Blood Type / Crossmatch: Patient ABO/Rh O Positive 07/09/23 Antibody Screen NEGATIVE 07/09/23 Complete Blood Count: White Blood Count 13.67 10^3/uL (4.4-10.8) H 07/09/23 12:35 Red Blood Count 3.27 10^6/uL (3.93-5.22) L 07/09/23 12:35 Hemoglobin 10.5 g/dL (11.2-15.7) L 07/09/23 12:35 Hematocrit 31.4 % (36.0-46.0) L 07/09/23 12:35 Platelet Count 480 10^3/uL (130-400) H 07/09/23 12:35 Complete Metabolic Panel: Sodium 134 mmol/L (136-145) L 07/09/23 12:00 Potassium 4.1 mmol/L (3.5-5.1) 07/09/23 12:00 Chloride 96 mmol/L (98-107) L 07/09/23 12:00 Carbon Dioxide 30.5 mmol/L (21.0-32.0) 07/09/23 12:00 BUN 15 mg/dL (7-18) 07/09/23 12:00 Creatinine 0.6 mg/dL (0.55-1.02) 07/09/23 12:00 Est GFR (CKD-EPI 2020) 104.63 (mL/min/1.73m2) 07/09/23 12:00 Calcium 9.6 mg/dL (8.5-10.1) 07/09/23 12:00 Albumin 3.6 g/dL (3.4-5.0) 07/09/23 12:00 Glucose 119 mg/dL (74-106) H 07/09/23 12:00 Liver Function Panel: Alanine Aminotransferase (ALT/SGPT) 40 U/L (14-59) 07/09/23 12: 00 Aspartate Amino Transf (AST/SGOT) 24 U/L (15-37) 07/09/23 12:00 Coagulation Panel: No Data to Display Cardiac Panel: 2 No Data to Display Arterial Blood Gas: No Data to Display Venous Blood Gas: No Data to Display Pancreas Panel: No Data to Display Thyroid Panel: No Data to Display Infectious Disease: No Data to Display Blood Cultures: No Data to Display Toxicology Panel: No Data to Display Imaging and Studies Imaging and Studies Study information below may be from another EMR and interpreted by another provider. Please see original notes in EMR for more complete details. EKG Summary: DATE/TIME OF SERVICE: 06/30/22814 : 1965PERFORMING LOCATION: [facility] APPROVED REPORT Exam: Resting ECG Reason for Exam: pre-op Patient Location: O HR:67 bpm ECG Measurements Heart Rate 67 AXIS HI 176 P 49 QRSd 85 QRS 10 QT 432 T26 QTc 456 Conclusion Sinus rhythm...normal P axis, V-rate 50- 99 Probable left atrial enlargement...P >50mS, <-0.10mV V1 Echocardiogram Summary: Conclusion Normal left ventricular wall thickness and chamber size. Estimated ejection fraction is 55 to 60%. Wall motion is normal Normal right ventricular size and systolic function Both atria are normal in size Normal mitral leaflets with mild systolic prolapse. There is mild to moderate eccentric mitral regurgitation There are no additional structural or hemodynamically significant valvular abnormalities Estimated right ventricular systolic pressure is 23 mmHg MRI Summary: 07/06/2022:IMPRESSION: Multilevel abnormalities as described above with multilevel central canal spinal stenosis, severe at L4-5, and multilevel neural foraminal stenosis. No gross interval change from prior examination of August 2021. Anesthesia Assessment and Plan Anesthesia History Personal History: No History of Anesthesia Complications Family History: No Family History of Anesthesia Complications Exercise Tolerance Exercise Tolerance: Metabolic Equivalents>4 Pertinent Negatives Pertinent Negatives: No Symptoms of GERD, No Major Cardiovascular Symptoms or Complaints and No Major Pulmonary Symptoms or Complaints Cardiac & Pulmonary Exam Cardiac Exam: Normal S1/S2 Heart Sounds Pulmonary Exam: Clear Bilateral Breath Sounds Implantable Cardiac Device Does patient have a Pacemaker or an ICD?: No Airway Exam Known Difficult Airway: No Mallampati Class: 1 Mouth Opening: Normal (> 3cm) Thyromental Distance: Greater than 3 cm Neck Range of Motion: Full ROM Neck Circumference: Normal Teeth Condition: Normal Dentition ASA Classification ASA Score: ASA 3 Emergency Case?: No NPO Status NPO Status: NPO Clears >2 hours, Solids >8 hours Anesthesia Plan Resuscitation Status: Full Code Anesthesia Technique: General Anesthesia Airway Planned: LMA Monitors Used: Standard Monitors
--- NOTE | 2023-07-10 12:18 | W.PM.PROGNOT ---
Date of Service Date of service: 07/10/23 Time of Service: 13:37 Assessment and Plan Assessment and plan (1) Closed comminuted intertrochanteric fracture of right femur: Status: Acute Assessment and plan: Steffi is a 58-year-old female who unfortunately suffered a fracture of her right hip. It is a comminuted intertrochanteric fracture with some basicervical extension. Which still does not make sense as how she happened to have this fracture. She does fall often but does not remember a fall directly related to the day she developed the increasing pain about the right hip. Nevertheless, she does have a fracture. There is no suspicious lesion seen on the CT scan of the x-ray. I am concerned about healing potential and avascular necrosis of the femoral head given the nature of this fracture, its location and comminution, and the duration from the time of suspected complete fracture. I recommend we move forward with operative fixation of the right hip fracture using intramedullary device. I reviewed this with Etienne once again. I discussed the risk of the procedure to include bleeding, infection, pain, stiffness, hardware prominence, hardware failure, malunion, nonunion, shortening, malrotation, need for repeat procedures, avascular necrosis, damage to nerves and vessels, damage to muscle tendons, blood clot. Despite these risk, she elects to proceed. Subjective Subjective Interval history since last seen: Steffi has no acute changes. Pain in the right hip. No new symptoms. No chest pain or shortness of breath. She has been having increasing cramps about the right hip. Exam Narrative Exam Narrative: Resting the hospital bed. Uncomfortable. No acute distress. Alert and oriented x3. Evaluation the right leg shows increasing swelling about the right thigh. Still compressible. Shortened and internally rotated. Sensation intact light touch over the deep and superficial peroneal nerve and tibial nerve. Palpable DP and PT pulse. Objective Last Vital Signs Temp 36.6 C 07/10/23 11:50 Pulse 83 07/10/23 11:50 Resp 20 07/10/23 11:50 BP 129/80 07/10/23 11:50 Pulse Ox 100 07/10/23 11:50 Laboratory Results - last 24 hr 07/09/23 07/09/23 07/09/23 12:00 12:00 12:35 WBC 13.67 H RBC 3.27 L Hgb 10.5 L Hct 31.4 L MCV 96 H MCH 32.1 MCHC 33.4 RDW 13.7 Plt Count 480 H MPV 8.0 Immature Gran % 1.8 Neutrophils % 65.8 Lymphocytes % 20.0 Monocytes % 10.4 Eosinophils % 1.6 Basophils % 0.4 Nucleated RBC % 0.0 Absolute Neutrophils 8.99 H Absolute Lymphocytes 2.73 Absolute Monocytes 1.42 H Absolute Eosinophils 0.22 Absolute Basophils 0.05 Sodium 134 L Potassium 4.1 Chloride 96 L Carbon Dioxide 30.5 Anion Gap 7.5 BUN 15 Creatinine 0.6 Est GFR (CKD-EPI 2020) 104.63 Glucose 119 H Calcium 9.6 Total Bilirubin 0.5 AST 24 ALT 40 Alkaline Phosphatase 111 Total Protein 7.1 Albumin 3.6 Patient ABO/Rh O Positive Antibody Screen NEGATIVE Time Spent with Patient Time Spent with Patient: <25 minutes Time was spent: preparing to see the patient(eg.review tests), ordering medications,tests, procedures and counseling the patient
--- NOTE | 2023-07-10 15:57 | BONE_PTH ---
PATIENT: Mina Coker LOC: U#:[id number] AGE/SX: 58/F ROOM: 209 RE07/09/[address]: Joseph Swan MD : 1965 BED: A DIS: 07/13/2023 SPEC #: [id number] RECD: 07/10/23 18:11 STATUS: SOUT REQ #: [id number] CINDY: 07/10/23 15:[address]: Joseph Swan DEPT: Surgical Specimen RECD BY: Malina Badillo ENTERED: 07/10/23 18:12 SP TYPE: Bone OTHR DR: Elizabeth Nunn [facility] Tissues: 1 - BONE BX/CURRETTE NOT PATH FRACTURE Procedures: GROSS AND MICRO LEVEL 5 DECALCIFICATION Comments: [id number]
[2023-07-10] MEDS: Lactated Ringers 1,000 ML 80 ML IV (16:09)
--- NOTE | 2023-07-10 16:10 | DI.RAD_ITS ---
Exam(s) XR HIP RT IN OR EXAM: XR HIP RT IN OR CLINICAL HISTORY: comminuted intratrochanteric fracture TECHNIQUE: 2D and realtime digital imaging was performed. CONTRAST MATERIAL: Refer to procedure report. COMPARISON: CR XR HIP RT COMPLETE AP PELVIS from 07/09/2023 FINDINGS: Fluoroscopy was provided for Dr. Swan during the performance of a reduction and internal fixatio n of the right femoral fracture. Please refer to the procedure report for complete details. Ka,r=15.1 mGy IMPRESSION: RADIATION DOSE DELIVERED:
--- NOTE | 2023-07-10 16:48 | W.PM.OP ---
Date of service: 07/10/23 Time of Service: 16:48 Operative Note Operative Note DATE OF PROCEDURE: 07/10/23 PRE-OP DIAGNOSIS: Right Comminuted Intertrochanteric Hip Fracture POST-OP DIAGNOSIS: same PROCEDURE: Right Open Reduction and Intramedullary Fixation of Proximal Femur Fracture SURGEON: Joseph Swan [employer] REP: Teresa Boogie ANESTHESIA TYPE: General LMA/ETT Refer to Anesthesia Record ESTIMATED BLOOD LOSS: 200 PATHOLOGY: other (Tissue sample from fracture site and intramedullary space of femur) COMPLICATIONS: None Patient was transported to: PACU Patient's condition: stable Implants: Depuy-Synthes TFNA 11mm x 170mm Indications: Steffi is a 58 year old female who I know from other musculoskeletal conditions/pathologies, who presented to the Emergency Department right hip fracture but without known fall or injury. X-rays confirmed the diagnosis of a intertrochanteric fracture of the proximal femur. I reviewed the possible treatment options and given the fracture of the femur, I recommened operative fixation. I discussed the technical details of the surgery. I reviewed the risks such as bleeding, infection, pain, stiffness, malunion, nonunion, hardware prominence, hardware faiilure, malrotation, avascular necrosis, blood clot. Despite these risks, she agreed to proceed. Findings: There was a highly comminuted fracture about the proximal femur. Interestingly, this did not move freely and required open reduction. There is some bridging tissue which tethered the fracture pieces, mostly about the neck and medial, proximal femur together. There were multiple pieces and irregularity of the fractures which made reduction extremely challenging. Additionally, the fracture site had very little substantive bone. I took a sample of the soft tissue in the region and sent to pathology. There is nothing grossly abnormal about the tissue but it was more soft tissue than bone, although could represent early callus formation given the duration of time from the fracture. Procedure Description: Steffi was taken back to the operating room. A general anesthetic was administered. The feet were wrapped with cast padding and Coban and then placed into the boot liners and then into the boots. Care was taken to protect the skin and make sure the heels were fully down and the boots were stable. The patient was then positioned onto the HANA table. Both legs were held in a neutral position. SCDs were applied. The patient was then slid down onto a perineal post. The arm of the operative side was then placed across the chest and secured. The nonoperative leg was scissored. A gentle reduction was then performed with traction and internal rotation and gentle external manipulation, however, I was unable to reduce the fracture at all. There is no motion between the fracture fragments with external manipulation. Prophylactic antibiotics in the form of Cefazolin were administered. 1g of Tranxemic Acid was given intravenously within 30 minutes of incision. The right leg was then prepped with Chloraprep and draped in a standard fashion with shower-curtain type drape with Iodine impregnated skin protection. A timeout to confirm correct identity, side and site, procedure, allergies, anesthesia, and medical concerns was performed. A lateral based incision was then made starting at the level of the vastus ridge and extending distally. This taken out sharply the skin, subtenons fat, and IT band. I then identified the fracture region of the proximal femur. There was notable comminution but what was quite difficult was the irregularity of the fracture. This fracture anteriorly on the femur started distal?lateral and then proceeded proximal?medial with a shelf of anterior extension. There is soft tissue bridging the space which made traction and any attempts at reduction difficult as the neck was tethered to the shaft, keeping the neck in significant varus. Utilizing a Garcia I freed the fracture planes. The trochanter was in multiple pieces and was left. It was well attached abductor muscles which displaced approximately altering the view of the anatomy. Her baseline anatomy has significant valgus. Despite freeing these fracture planes and trying to manipulate these pieces individually it was very challenging to restore her normal anatomy. In these reduction attempts I did palpate the bone manually and the soft tissue component of the intramedullary space of the femur seemed more excessive than I was expecting. Once again, this fracture may be at least 1 week old and that could be early callus. However, I did send samples of tissue from the intramedullary space of the fracture to pathology. After freeing the pieces and manipulating the leg both externally and directly, I was able to bring the head neck out of varus although there is likely some varus reduction compared to her baseline valgus. However, overall alignment was maintained and there is bony contact between all the pieces. Therefore this was held with clamps and intervention nail was placed. The starting point was marked over the lateral hip, proximal to the tip of the greater trochanter. A 3cm incision was made through skin and the fascia of the gluteus musculature until the tip of the trochanter was palpable although there was a split within the trochanter making start point quite challenging. A lateral x-ray confirmed appropriate position and the guidewire was advanced to the level of the lesser trochanter. With a tissue protector, the proximal femur was opened with the opening reamer. The short TFNA was chosen for this case and a Synthes TFNA [id number] nail was selected and opened on the back table. The nail was assembled to the aiming arm on the back table and confirmed to be aligned with the triple sleeve for blade insertion. Using manual force the nail was advanced into the femur. A few light mallet blows advanced the nail to its appropriate position. The triple sleeve was inserted through the targeting arm and the skin, soft tissue, and IT band was then incised. The triple sleeve was advanced down to the lateral femur. A guidewire was advanced into the femoral head where it was noted to be centered. A lateral x-ray was used to confirm centered positioning on the lateral. Happy with the length of the guidewire, this was measured. A 85mm helical blade was opened. The lateral cortex was opened and the path of the blade was reamed with a tapered reamer to appropriate depth. The helical blade was malletted into position and confirmed to be appropriately located on fluoroscopy. The set screw was advanced to a half turn shy of fully tightened, allowing for the helical blade to slide. The fracture was compressed before removing the targeting device. The targeting device was removed. AP and lateral x-rays of the hip confirmed appropriate positioning within the femur and with good alignment of the fracture. Using the targeting arm, the skin was incised for placement of the distal locking screw. The trochar was inserted through the skin and IT band down onto the lateral cortex of the femur. The 4.2mm drill was advanced across the femur and through the nail. This was measured and an appropriately sized 5.0mm screw was placed. The targeting arm was removed. Final x-rays were obtained. The wounds were thoroughly irrigated. A cocktail consisting of 123mg of Ropivacaine, 0.25mg of Epinephrine, 0.04mg of Clonidine, and 15mg of Ketorolac, diluted to 50cc was injected throughout the wounds both deep and superficially. The deep fascia of the proximal two wounds was reapproximated with a 0 Vicryl. The deep tisses were closed with a 2-0 Vicryl and the skin was closed with a running subcuticular Monocryl. The wounds were dressed with a Mepilex silver dressing. At the end of the case, all counts were correct. Steffi tolerated the procedure well without known complication and was taken to the PACU for recovery. Physical therapy will start post-operatively, weigh-bearing as tolerated with assistive devices. Anticoagulation will start within 12-24 hours. 3 doses of post-operative antibitiocis for prophylaxis will be administered.
[2023-07-10] MEDS: Droperidol 5 MG/2 ML VIAL 0.625 MG IVP (16:59)
[2023-07-10] MEDS: fentaNYL 100 MCG/2 ML VIAL IVP ×4 (17:00→17:24)
--- NOTE | 2023-07-10 17:31 | W.ANESPOSTOP ---
Postoperative Evaluation Date, Time and Location Date Performed: 07/10/23 Time Performed: 17:31 Patient Location: PACU Vital Signs Most Recent Imported Vital Signs: Most Recent Vital Signs Temp Pulse Resp BP Pulse Ox 36.6 C 89 15 122/78 98 07/10/23 17:25 07/10/23 17:25 07/10/23 17:25 07/10/23 17:25 07/10/23 17:25 Pain Score Most Recent Pain Score: Most Recent Pain Score Pain Level [Right Hip] 7 07/10/23 13:00 Pain Level 6 07/10/23 17:25 Assessment Mental Status: Awake (Alert & Oriented to Patient Baseline) Airway and Respiratory Function: Patent airway with normal (patient baseline) respiratory exam Cardiovascular Function: Hemodynamically Stable Hydration Status: Adequately Hydrated Nausea & Vomiting: No Nausea or Vomiting Pain: Pain is tolerable per patient Peripheral Nerve Block: Patient did not receive a nerve block
[2023-07-10 18:12] LABS: HCT 32.2 % (36.0-46.0); HGB 10.5 g/dL (11.2-15.7)
[2023-07-10] MEDS: oxyCODONE 5 MG TAB PO ×2 (19:22→23:05)
[2023-07-10] MEDS: Docusate Sodium 100 MG/10 ML CUP PO (19:25)
[2023-07-10] MEDS: Polyethylene Glycol 3350 17 GM PACKET PO (19:25)
[2023-07-10] MEDS: Acetaminophen 500 MG TAB PO (22:50)
[2023-07-10] MEDS: Desmopressin 0.2 MG TAB 0.4 MG PO (22:50)
[2023-07-10] MEDS: diphenhydrAMINE 25 MG CAP PO (22:50)
[2023-07-10] MEDS: ceFAZolin 1 GM/50 ML BAG IVPB (22:58)
[2023-07-11] MEDS: Lactated Ringers 1,000 ML 80 ML IV ×2 (00:26→14:13)
[2023-07-11 03:04] VITALS: BP 117/65; PULSE 95; RESP 14; O2SAT 94
[2023-07-11] MEDS: oxyCODONE 5 MG TAB PO ×2 (03:09→20:18)
[2023-07-11] MEDS: HYDROmorphone 2 MG/ML SYR 0.5 MG IVP ×2 (05:45→09:14)
[2023-07-11] MEDS: ceFAZolin 1 GM/50 ML BAG IVPB ×2 (06:13→14:13)
[2023-07-11 07:11] LABS: HCT 25.6 % (36.0-46.0); MCH 32.1 pg (27.0-33.0); MCHC 32.8 % (32.0-36.0); MCV 98 fL (80-95); MPV 8.4 fL (8.0-11.0); Platelet Count 477 10^3/uL (130-400); RBC 2.62 10^6/uL (3.93-5.22); RDW 13.9 % (11.7-14.6); RDW-SD 49.1 fL
[2023-07-11 07:22] VITALS: BP 118/75; PULSE 87; TEMP 36.9; O2SAT 96
[2023-07-11 07:28] LABS: Anion Gap 7.2 mmol/L (3-11); BUN 19 mg/dL (7-18); CO2 29.8 mmol/L (21.0-32.0); CREATININE 0.6 mg/dL (0.55-1.02); Calcium 8.4 mg/dL (8.5-10.1); Chloride 98 mmol/L (98-107); Estimated GFR 104.63 (mL/min/1.73m2); Glucose 114 mg/dL (74-106); Potassium 4.2 mmol/L (3.5-5.1); Sodium 135 mmol/L (136-145)
[2023-07-11] MEDS: Calcium 600mg/Vit D 200U TAB 1 TAB PO (07:56)
[2023-07-11] MEDS: Lactobacillus Acidophilus CAP 1 CAP PO (07:56)
[2023-07-11] MEDS: Cholecalciferol (Vitamin D3) 1,000 UNIT TAB 5000 UNITS PO (07:57)
[2023-07-11] MEDS: buPROPion-XL 150 MG TABCR 300 MG PO (07:57)
[2023-07-11] MEDS: DULoxetine 30 MG CAP 60 MG PO (07:57)
[2023-07-11] MEDS: Vitamins B Comp w/C TAB 1 TAB PO (07:58)
[2023-07-11] MEDS: Baclofen 10 MG TAB 40 MG PO ×3 (07:58→20:17)
[2023-07-11] MEDS: Omeprazole 20 MG CAPCR PO (07:59)
[2023-07-11] MEDS: amLODIPine 5 MG TAB PO (07:59)
[2023-07-11] MEDS: Lisinopril 20 MG TAB 40 MG PO (07:59)
[2023-07-11 08:01] LABS: HGB 8.4 g/dL (11.2-15.7)
[2023-07-11] MEDS: Normal Saline Flush 10 ML SYR IVP (09:15)
--- NOTE | 2023-07-11 10:56 | IN_ITS ---
Date of service: 07/11/23 Time of Service: 10:30 PT Notes Visit Reasons: Right Hip Fracture Inpatient Physical Therapy Evaluation Date: 07/11/23 Referring Doctor: Joseph Swan MD PT Orders: PT CONSULT: S/P ortho surgery, WBAT with AD Precautions: fall risk Patient Profile/Admitting Diagnosis: 59 y o female S/P R IMN fixation of R hip fracture, in presence of MS and high fall frequency, and leg length discrepancy with acquired R foot pes planus adding further balance challenge. PMHX: All Active Problems?(Updated 07/09/23 @ 12:55 by Schuyler Kirkpatrick MD) Closed intertrochanteric fracture of right hip (Acute) Closed comminuted intertrochanteric fracture of right femur (Acute ~06/2023) Foot pain (Acute) Arthritis (Acute) Pes planus (Acute) Anemia (Acute) Essential hypertension (Chronic 09/02/13) Foot drop, left (Acute 05/17/15) Multiple sclerosis (Chronic 1991) Neurogenic bladder (Acute 01/13/16) Spasticity (Chronic 05/17/15) Synovial cyst of popliteal space (Acute) Urge incontinence of urine (Acute 08/08/12) Memory loss (Chronic) Depression (Chronic) Fatigue (Acute) Acquired pes planus of right foot (Chronic) chronic pain in foot; possible surgeryConstipation due to neurogenic bowel (Acute) Medical History? Closed subcapital fracture of left femur S/P L BELEN --DOS 03/15/22 GERD (gastroesophageal reflux disease) Left carpal tunnel syndrome managed non-surgicallyMurmur, cardiac Optic neuritis Spinal stenosis of lumbar region with radiculopathy Surgical History? 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 She has a ramp to enter the home. She reports falls that occur 3x/week. Current Functional Limitations: ModA x 1 with RW for transfers, independent bed mobility, STS MOD A x 1 at Equipment Owned/DME: , sounds like she uses a boot of some kind to accommodate to R LE deformity which is currently been sent away for modification. Subjective: High pain level recently reduced with use of pain med, anxious to move. C/o muscle cramping sensation on lateral right hip region. Objective: General Observation: Lying recline in hospital bed, hip flex and rotated to left side of bed, with R femur adducted and internally rotated, pillow between the knees. Miller and IV in place. Mental Status: A & O x 3, anxious Pain: 8/10, reduced to 4/10 post pain med. Increast to 5/10 with transfer Vital Signs: Stable per nursing reports and record ROM: Right Upper Extremity: WNL Left Upper Extremity: WNL Right Lower Extremity: hip flex 100 deg, IR resting in 30 deg, ER 0 deg, ext la cking 20 deg. R knee ext initially 30 deg, improves to 10 deg, flex 110 deg. Ankle hypomobile and fixed in pes planus position Left Lower Extremity: WNL Strength: Right Upper Extremity: Grossly WNL Left Upper Extremity: Grossly WNL Right Lower Extremity: Grossly WNL Left Lower Extremity: At least 3/5 within all available ROM Sensation: intact Bed Mobility/Transfers: Bed mobility w supervision STS at , with Mod A x 1 Stand pivot transfers to chair, , Mod A x 1 Gait: Only tolerating transfers, not able to tolerate much weight at R LE, but cleared for WBAT with AD. Movement pattern: Avoiding R knee ext, and R femoral internally rotated and flexed positioning. Demonstrating accommodative shortening of R LE with fixed pes planus offering likely offering asymmetry of weightbearing movement at baseline. Balance: Static Sitting: Good Dynamic Sitting: Fair Static Standing: Fair with RW Dynamic Standing: Poor with RW Special Tests: Mobility Limitations Standardized Measure [facility] AM-PAC 6 clicks Basic Mobility Inpatient Short Form: 64% disability Informed Consent/Education: Patient instructed in purpose of PT consult and plan of care. Advised in glute sets, quad sets, maintaining ext of R knee when sitting and lying down, working on ER active motion or R hip frequently, knee ext ROM throughout the day. Assessment: Patient is a 58 year old female referred to physical therapy services S/P IMN fixation of R hip fracture, in presence of MS, remarkable R pes planus with accomodative assymetrical leg length and high fall frequency at base line associated with her MS. Patient presents with impairments of R hip strength and mobility loss, movement pattern dysfunction, fixed deformities as noted prior, and appropriate ecchymosis and soft tissue tenderness of R LE. Impairments are directly contributing to functional inability to transfer without moderate assistance of 1, requires use of walker for transfers, and currently unable to ambulate. She will be appropriate for SNF transfer, to restore her functional ability given need for independent living ability within her home environment. She requires use of RW due to fall risk and to promote safe functional mobility. Patient is assessed as a Moderate [id number] based on the following: History: See comorbidities Examination: See assesmsent Presentation: Evolving Decision Making: Easy Goals: Goals X1 week 1. Supine-Sit independent 2. Sit-Supine independent 3. Sit-Stand close supervision at RW 4. Stand-Sit close supervision from RW 5. Bed-Chair CG x 1 with RW 6. Chair-Bed CG x 1 with RW 7. Gait 10 ft with RW CG Plan of Care/Treatment Plan: 1-2x/day, 7 days/week x 1 week. Plan of care has been reviewed with the [facility] providing the service under Physical Therapy direction. Initiate Physical Therapy intervention for strengthening, bed mobility, transfers, gait, stairs, balance training, use of assistive device. DISCHARGE RECOMMENDATIONS: SNF for continued rehabilitation TREATMENT CODE/TIME: 80207, 10:20-11:00a.m., 40 min
[2023-07-11] MEDS: Bisacodyl 5 MG TABEC PO (14:30)
[2023-07-11] MEDS: Docusate Sodium 100 MG/10 ML CUP PO (14:30)
[2023-07-11 15:21] VITALS: BP 102/70; PULSE 115; TEMP 37.5; O2SAT 96
--- NOTE | 2023-07-11 16:09 | W.PM.PROGNOT ---
Date of Service Date of service: 07/11/23 Time of Service: 14:15 Assessment and Plan Assessment and plan (1) Closed comminuted intertrochanteric fracture of right femur: Status: Acute Assessment and plan: Steffi is a 58-year-old post with a #1 status post open reduction and internal fixation with intramedullary device for a comminuted and chronic right intertrochanteric hip fracture. This is a challenging fracture yesterday. It was really hard to understand fracture morphology and the chronicity. This made reduction quite challenging with some residual shortening and relative varus. This is also her bad leg with a chronic pes planus deformity for which she is seeking treatment as well. She was able to move some today and I do expect she will make some improvements. She should continue with physical therapy. Weightbearing as tolerated. Continue to follow labs that she did have some anemia on presentation. Increase bowel regimen to help promote bowel movement. She is passing gas and does not have abdominal pain. Subjective Subjective Interval history since last seen: Steffi reports that the pain in her right hip is much better than it was yesterday. She did attempt mobilization physical therapy with found weightbearing still to be challenging. However, she has been able to move and do more without pain. She denies any chest pain or shortness of breath. She has yet to have a bowel movement. Miller catheter still in place. Exam Narrative Exam Narrative: Sitting up in the hospital bed. Laying most on the left side with the right leg internally rotated. Notable swelling and ecchymosis about the right thigh. Dressing is clean dry and intact. She is able to tolerate some internal and external rotation with much less pain. Objective Last Vital Signs Temp 37.5 C 07/11/23 15:21 Pulse 115 H 07/11/23 15:21 Resp 14 07/11/23 03:04 BP 102/70 07/11/23 15:21 Pulse Ox 96 07/11/23 15:21 Laboratory Results - last 24 hr 07/10/23 07/11/23 07/11/23 18:00 06:50 06:50 WBC 11.10 H RBC 2.62 L Hgb 10.5 L 8.4 L D Hct 32.2 L 25.6 L MCV 98 H MCH 32.1 MCHC 32.8 RDW 13.9 Plt Count 477 H MPV 8.4 Sodium 135 L Potassium 4.2 Chloride 98 Carbon Dioxide 29.8 Anion Gap 7.2 BUN 19 H Creatinine 0.6 Est GFR (CKD-EPI 2020) 104.63 Glucose 114 H Calcium 8.4 L Time Spent with Patient Time Spent with Patient: 25-34 minutes Time was spent: preparing to see the patient(eg.review tests), obtaining and/or reviewing separately otained hiistory, ordering medications,tests, procedures, indepentently interpreting results and counseling the patient
--- NOTE | 2023-07-11 16:41 | PDOC.CMPRO ---
Date of service: 07/11/23 Time of Service: 16:41 Care Management Progress Note Progress Note Text Progress Note Text: S/O: Steffi continues to meet inpatient level of care. She underwent open reduction and internal fixation of her hip fracture yesterday. Patient reports doing well today and says she is having painful spasms but the pain is well managed on current medications. CM discusses physical therapy's recommendation of short-term rehab with patient. Her preference would be to return home with home health services but she is open to considering short-term rehab to regain strength and restore her ability to function independently. A: Steffi is a 58 year old female admitted to [facility] on 07/09/2023 for a closed communited intertrochanteric fracture of right femur. P: Steffi may require short-term rehab prior to returning home. Patient would prefer to go home with new PT services but she is not opposed to going to rehab. Disposition will be based on progress and patient's ability to walk independently. CM will continue to support Steffi and any discharge planning needs.
[2023-07-11] MEDS: Polyethylene Glycol 3350 17 GM PACKET 34 GM PO (20:19)
[2023-07-11 20:40] VITALS: BP 121/79; PULSE 109; RESP 22; TEMP 37; O2SAT 95
[2023-07-11] MEDS: Acetaminophen 500 MG TAB PO (22:50)
[2023-07-11] MEDS: diphenhydrAMINE 25 MG CAP PO (22:50)
[2023-07-11] MEDS: Desmopressin 0.2 MG TAB 0.4 MG PO (22:50)
[2023-07-11 22:58] VITALS: BP 127/81; PULSE 118; RESP 16; TEMP 37.9; O2SAT 93
--- NOTE | 2023-07-12 | DI.RAD_ITS ---
Exam(s) XR ABDOMEN FLAT PLATE EXAM: 2D digital imaging was performed. CLINICAL HISTORY: constipation. COMPARISON: No exams were available for comparison TECHNIQUE: Supine views of the abdomen was performed. Two images were obtained. FINDINGS: LUNG BASES: Clear. BOWEL GAS PATTERN: There is a moderate amount of stool in the colon. FREE AIR: None. CALCIFICATIONS: No radiopaque calcifications. OSSEOUS STRUCTURES: There is an intramedullary nail transfixing the intertrochanteric fracture of the right femur. The patient has a left total hip replacement. Postsurgical changes are seen in the lo wer lumbar spine. OTHER FINDINGS: None. IMPRESSION: Moderate amount of stool in the colon. DATA REPOSITORY: RADIATION DOSE DELIVERED:
--- NOTE | 2023-07-12 | DI.RAD_ITS ---
Exam(s) XR HIP RT AP LAT ONLY EXAM: XR HIP RT AP LAT ONLY CLINICAL HISTORY: f/u IMN fixation of R hip fracture. TECHNIQUE: 2D digital imaging was performed. Two images were obtained. AP and lateral views were ob tained. COMPARISON: CR XR HIP RT COMPLETE AP PELVIS from 07/09/2023 XA XR HIP RT IN OR from 07/10/2023 FINDINGS: BONES: There are stable post operative changes present. There is stable alignment of the intertrocha nteric fracture of the right hip following internal fixation. JOINTS: The joint spaces are well maintained. SOFT TISSUE: Normal. IMPRESSION: Status post reduction and internal fixation of the intertrochanteric fracture of the right femur. DATA REPOSITORY: RADIATION DOSE DELIVERED:
[2023-07-12] MEDS: Lactated Ringers 1,000 ML 80 ML IV (02:55)
[2023-07-12 07:45] VITALS: BP 125/79; PULSE 120; RESP 18; TEMP 37.6; O2SAT 94
[2023-07-12 08:19] LABS: HCT 25.4 % (36.0-46.0); HGB 8.5 g/dL (11.2-15.7); MCH 32.2 pg (27.0-33.0); MCHC 33.5 % (32.0-36.0); MCV 96 fL (80-95); MPV 7.9 fL (8.0-11.0); Platelet Count 440 10^3/uL (130-400); RBC 2.64 10^6/uL (3.93-5.22); RDW-SD 48.9 fL; WBC 10.91 10^3/uL (4.4-10.8)
[2023-07-12] MEDS: Lisinopril 20 MG TAB 40 MG PO (08:19)
[2023-07-12] MEDS: Baclofen 10 MG TAB 40 MG PO ×3 (08:19→19:51)
[2023-07-12] MEDS: Omeprazole 20 MG CAPCR PO (08:19)
[2023-07-12] MEDS: Spironolactone 50 MG TAB PO (08:20)
[2023-07-12] MEDS: Calcium 600mg/Vit D 200U TAB 1 TAB PO (08:20)
[2023-07-12] MEDS: DULoxetine 30 MG CAP 60 MG PO (08:20)
[2023-07-12] MEDS: Vitamins B Comp w/C TAB 1 TAB PO (08:20)
[2023-07-12] MEDS: Lactobacillus Acidophilus CAP 1 CAP PO (08:20)
[2023-07-12] MEDS: buPROPion-XL 150 MG TABCR 300 MG PO (08:20)
[2023-07-12] MEDS: Cholecalciferol (Vitamin D3) 1,000 UNIT TAB 5000 UNITS PO (08:20)
[2023-07-12] MEDS: amLODIPine 5 MG TAB PO (08:21)
[2023-07-12] MEDS: Metoprolol CR 50 MG TABCR PO (08:21)
[2023-07-12 08:32] LABS: Anion Gap 7.2 mmol/L (3-11); BUN 8 mg/dL (7-18); CO2 28.8 mmol/L (21.0-32.0); CREATININE 0.5 mg/dL (0.55-1.02); Calcium 8.4 mg/dL (8.5-10.1); Chloride 96 mmol/L (98-107); Estimated GFR 109.33 (mL/min/1.73m2); Glucose 132 mg/dL (74-106); Potassium 3.8 mmol/L (3.5-5.1); Sodium 132 mmol/L (136-145)
[2023-07-12] MEDS: HYDROmorphone 2 MG/ML SYR 0.5 MG IVP (08:37)
[2023-07-12] MEDS: Timolol 0.5% 5 ML BTL OP (08:38)
--- NOTE | 2023-07-12 09:40 | PTTR_ITS ---
Date of service: 07/12/23 Time of Service: 09:40 PT Notes Visit Reasons: Right Hip Fracture Inpatient Physical Therapy Treatment Note [facility] Date: 07/12/23 PRECAUTIONS: WBAT on R LE with AD. R post-op shoe on when OOB. SUBJECTIVE: Pleasant and cooperative. She did admit that she is apprehensive about getting out of bed. States that before surgery, she was able to walk unlimited distances. Adds that she has an orthopedic shoe that is on the wait list to be repaired by [facility] and so she does not have it in here. Agrees to trying out a post-op shoe that will help minimize her leg length discrepancy and her pain report. Complains of 5/10 pain in the R hip at rest. OBJECTIVE: PAIN: 5/10 at rest, 6-7/10 with ambulation using FWW BED MOBILITY/TRANSFERS: Supine-sit: minimal assist provided to R LE to slide it onto edge of bed Sit-stand: moderate assist, moderate cues provided to use B hands to push off from edge of bed and for distributing weight over base of support with FWW? Stand-sit: minimal assist, moderate cues provided to reach behind with B hands to control descent and minimize pain report Wheelchair-bedside recliner: moderate assist, moderate cues provided to shift weight to the opposite side prior to advancing the opposite limb to allow for more efficient limb advancement GAIT: Covered 12 feet from bedside to almost the room door and then another 4 steps to transfer from wheelchair to bedside recliner using FWW and minimal to moderate assist. Appeared to be anxious about putting weight on the R LE and off loaded painful hip by leaning forward and to the left. Moderate cues were given to not push walker too far forward and then to advance R LE first while pushing down on walker handles to off-load painful R hip towards the rest of R stance phase. THERA EX: Instructed patient with correct execution of exercises she can do while seated at edge of bed every two hours: Gluteal sets 5 sh x 5 Quads sets 5 sh x 5 Ankle PF/DF x 10 ? ASSESSMENT:? Pre-existing back issues, multiple sclerosis, and balance problems alongside pain report limit ability of patient to efficiently and safely perform short distance ambulation at this time. Will plan to work with nurse to ensure that medication for pain and for MS have been given to allow for optimized functional mobility performance in succeeding sessions. PLAN: Progress strength, balance, pain tolerance, and functional mobility performance as initially established in PT POC. DISCHARGE RECOMMENDATIONS: [] Home with no services [] [] Home with services [specify] [] Home with outpatient PT [] [] SNF for continued rehabilitation [] [] Senior Living Care [] [] SNF versus LTC based on ability to participate and progress [] [X] Short-term rehab stay to achieve safest mobility level prior to D/C to home TREATMENT CODE/TIME: 18555 x 25 minutes (2 units), 16688 x 14 minutes (1 unit) beginning at 9:40 AM.
--- NOTE | 2023-07-12 12:18 | CMPROGNOTE_ITS ---
Date of service: 07/12/23 Time of Service: 12:18 Care Management Progress Note Progress Note Text Progress Note Text: S/O: Steffi is sitting in a chair eating lunch when CM comes to meet with her. She shares she worked with physical therapy this morning and things did not go as well as she had hoped. She says she is improving some and is making an effort to keep a positive attitude. She begins to cry when advises her she has a bed offer at [facility]. Patient states she is not ready for that yet and again says her preference is to go home. A: Steffi is a 58 year old female admitted to [facility] on 07/09/2023 for a closed communited intertrochanteric fracture of right femur. P: Steffi has a bed offer for short term rehab from [facility] but she declines, saying she hopes to be able to return home with new PT/OT services. She continues to be closely monitored at this time. will continue to support Steffi and any discharge planning needs.
--- NOTE | 2023-07-12 13:09 | W.PM.PROGNOT ---
Date of Service Date of service: 07/12/23 Time of Service: 13:09 Assessment and Plan Assessment and plan (1) Closed intertrochanteric fracture of right hip: Status: Acute Assessment and plan: Status post intramedullary fixation with some visual shortening. Overall still is better than before surgery. Still having difficulties with ambulation but is motivated to go home. Has been able to mobilize with physical therapy with max assist. Weightbearing as tolerated. No positioning restrictions. Check repeat x-ray of the right hip. Continue pain medication as needed. Aspirin for DVT prophylaxis. (2) Constipation due to neurogenic bowel: Status: Acute Assessment and plan: Continue with bowel medications. Check abdominal x-ray. (3) Neurogenic bladder: Status: Acute Assessment and plan: DC Miller catheter. Subjective Subjective Interval history since last seen: Steffi reports that things are getting better, albeit slowly. She was able to mobilize to the chair. She still continues have pain about the right hip. She denies chest pain or shortness of breath. She still continues to pass flatus but no bowel movement. She was having more pain when trying to mobilize today although still much better than before surgery. Exam Narrative Exam Narrative: Sitting in the chair. Right leg is somewhat flexed and internally rotated although I can passively externally rotate and move the hip with minimal discomfort. Notable swelling about the right thigh with some ecchymosis. Thigh still compressible. Dressings clean dry and intact. Objective Last Vital Signs Temp 37.6 C H 07/12/23 07:45 Pulse 120 H 07/12/23 07:45 Resp 18 07/12/23 07:45 BP 125/79 07/12/23 07:45 Pulse Ox 94 07/12/23 07:45 Laboratory Results - last 24 hr 07/12/23 07/12/23 08:16 08:16 WBC 10.91 H RBC 2.64 L Hgb 8.5 L Hct 25.4 L MCV 96 H MCH 32.2 MCHC 33.5 RDW 14.0 Plt Count 440 H MPV 7.9 L Sodium 132 L Potassium 3.8 Chloride 96 L Carbon Dioxide 28.8 Anion Gap 7.2 BUN 8 Creatinine 0.5 L Est GFR (CKD-EPI 2020) 109.33 Glucose 132 H Calcium 8.4 L Time Spent with Patient Time Spent with Patient: 25-34 minutes Time was spent: preparing to see the patient(eg.review tests), obtaining and/or reviewing separately otained hiistory, ordering medications,tests, procedures, indepentently interpreting results and care coordination
[2023-07-12] MEDS: Magnesium Citrate 300 ML BTL 150 ML PO (15:01)
--- NOTE | 2023-07-12 15:22 | PT.INTREAT ---
PT Notes Visit Reasons: Right Hip Fracture Inpatient Physical Therapy Treatment Note [facility] Date: 07/12/23 PRECAUTIONS:fall, standard SUBJECTIVE: Mina states that she just transferred from the commode with nursing and it was quite challenging. States that she plans to go directly home from the hospital once ready, and that her has taken time off work to help her at home. OBJECTIVE: ? PAIN: 4/10 ??? Therapeutic Activities (89433a9): Direct one-on-one instruction in dynamic activities to improve functional performance. ? BED MOBILITY/TRANSFERS? Sit-stand: min A? Stand-sit: min A, with poorly controlled descent and need for cues for technique ? Bed-Chair: mod A with FWW ? Chair-bed: mod A with FWW Provided skilled cues and instruction on performance and technique throughout. Instructed in the following: sit-stand: 6x requires cues for technique, particularly left-sided weight shift, glute set for upright positioning. Demonstrates excellent carry over, with improving safety and technique with repetition. standing weight shift, FWW, 3x (limited by UE fatigue) standing right hip flexion to facilitate improved right LE advancement, 5x Gait Training ([id number]): Direct one-on-one instruction and skilled instruction in: employing an assistive device modified weight-bearing status movement sequencing turning and movement with proper form Provided verbal cues for equipment management and technique Provided instruction in gait pattern ? GAIT? Assistive Device: FWW? Weight bearing: AT Assist: mod A x 1, CGA x 1 ? Distance:? 6' ? Deviation: heavy reliance on UE support, with forward flexed trunk position. Upon reaching destination, performs rapid pivot to sit with poorly controlled descent despite cues for safety. Reports significant fatigue. ? STAIRS:unable ? ASSESSMENT:? Very motivated to return home and actively participating in PT to achieve that goal. Very limited functional strength and activity tolerance, with need for assist of 2 for 6 feet of ambulation with FWW. Patient is very motivated to return home without SNF stay, although may require Swing Bed stay for rehabilitation if mobility isn't markedly improved by tomorrow. PLAN: Continue progressing weight bearing activity, with continued monitoring of mobility for discharge planning. TREATMENT CODE/TIME: [id number] ([id number])
[2023-07-12 15:26] VITALS: BP 110/6; PULSE 96; RESP 16; TEMP 36.8; O2SAT 94
[2023-07-12] MEDS: oxyCODONE 5 MG TAB PO (15:39)
[2023-07-12 19:55] VITALS: BP 104/67; PULSE 95; RESP 16; TEMP 36.4; O2SAT 95
[2023-07-12] MEDS: Polyethylene Glycol 3350 17 GM PACKET 34 GM PO (19:55)
[2023-07-12] MEDS: diphenhydrAMINE 25 MG CAP PO (21:08)
[2023-07-12] MEDS: Acetaminophen 500 MG TAB PO (21:08)
[2023-07-12] MEDS: Desmopressin 0.2 MG TAB 0.4 MG PO (21:08)
[2023-07-13 03:04] VITALS: BP 124/75; PULSE 89; RESP 16; TEMP 36.6; O2SAT 97
[2023-07-13] MEDS: Magnesium Citrate 300 ML BTL 150 ML PO (06:32)
[2023-07-13] MEDS: Polyethylene Glycol 3350 17 GM PACKET 34 GM PO (08:02)
[2023-07-13] MEDS: Cholecalciferol (Vitamin D3) 1,000 UNIT TAB 5000 UNITS PO (08:02)
[2023-07-13] MEDS: Lactobacillus Acidophilus CAP 1 CAP PO (08:03)
[2023-07-13] MEDS: buPROPion-XL 150 MG TABCR 300 MG PO (08:03)
[2023-07-13] MEDS: Calcium 600mg/Vit D 200U TAB 1 TAB PO (08:04)
[2023-07-13] MEDS: Vitamins B Comp w/C TAB 1 TAB PO (08:04)
[2023-07-13] MEDS: Lisinopril 20 MG TAB 40 MG PO (08:04)
[2023-07-13] MEDS: Baclofen 10 MG TAB 40 MG PO ×2 (08:04→14:54)
[2023-07-13] MEDS: DULoxetine 30 MG CAP 60 MG PO (08:05)
[2023-07-13] MEDS: Metoprolol CR 50 MG TABCR PO (08:05)
[2023-07-13] MEDS: Omeprazole 20 MG CAPCR PO (08:05)
[2023-07-13] MEDS: Timolol 0.5% 5 ML BTL OP (08:06)
[2023-07-13] MEDS: Spironolactone 50 MG TAB PO (08:06)
[2023-07-13] MEDS: amLODIPine 5 MG TAB PO (08:06)
[2023-07-13] MEDS: Aspirin E.C. 81 MG TABEC PO (08:20)
[2023-07-13 08:22] VITALS: BP 136/81; PULSE 95; RESP 18; TEMP 37.1; O2SAT 95
[2023-07-13] MEDS: oxyCODONE 5 MG TAB PO (09:35)
[2023-07-13] MEDS: Naproxen 250 MG TAB 500 MG PO (09:35)
--- NOTE | 2023-07-13 10:39 | PT.INTREAT ---
Date of service: 07/13/23 Time of Service: 10:27 PT Notes Visit Reasons: Right Hip Fracture Inpatient Physical Therapy Treatment Note [facility] Date: 07/13/23 PRECAUTIONS: Fall, standard, activity as tolerated SUBJECTIVE: Patient reports she just did some walking to and from the toilet, walking seems easier today. OBJECTIVE: Sitting up in recliner with feet down, agreeable to therapy.? PAIN: none reported VITALS: monitored by nursing staff Gait Training ([id number]): Direct one-on-one instruction and skilled instruction in: [x] employing an assistive device [x] movement sequencing [x] turning and movement with proper form [x] Provided verbal cues for equipment management and technique [x] Provided instruction in gait pattern? GAIT? Assistive Device: FWW ? Weight bearing: WBAT RLE Assist: CGA, wheelchair follow ? Distance:? 30 feet ? Deviation: Patient demonstrates antalgic gait pattern, step-to with left leg leading. Hinged forward at the hips, and this postural deviation becomes more and more pronounced as patient fatigues. ? ASSESSMENT:? Patient tolerates therapy well, returns to sit comfortably in recliner at end of session. Call carrillo in easy reach. PLAN: Continue global strengthening per plan of care until patient is medically cleared and safe to return home. TREATMENT CODE/TIME: 10 minutes beginning at 10:27
--- NOTE | 2023-07-13 12:52 | W.PM.DS.N ---
Date of service: 07/13/23 Time of Service: 12:35 DS: Diagnosis Discharge Diagnosis (1) Closed intertrochanteric fracture of right hip: Status: Acute Discharge Plan Disposition Patient Disposition: Home W/Home Health Services Condition: Improving Discharge Details Reason For Visit: Right Hip Fracture Admit Date/Time: 07/09/23 13:27 Admit Provider: Joseph Swan Attending Provider: Joseph Swan Primary Care Provider: Elizabeth Nunn Hospital Course Hospital Course: Hip Fracture Discharge Instructions Activity: You should try to take a few steps or do some movement of the right leg a few times a day. You have no restrictions on movement or positioning, but do not try to force what you do. You will find some stiffness and weakness with hip flexion (lifting your knee). Do not try to strengthen this too early, continue to practice walking and stairs and this will come. Dressing: Keep the surgical dressing in place for at least one week. After the first week it may be removed and replace with light gauze and tape or nothing. It may get wet after 3 days but avoid soaking the dressing. If it gets wet, just lightly pat dry. You may also choose to cover with ClingWrap or SaranWrap for showers. Medications: - You should take Tylenol and an anti-inflammatory Naproxen as your primary pain control medications. - You have been prescribed a stronger pain medication Oxycodone for breakthrough pain, take as needed as prescribed. - You will continue your stomach acid reduction agent Omeprazole to help reduce stomach acid and reflux. - You will be taking Aspirin 81mg twice a day for DVT prevention unless instructed otherwise. - If you have constipation you should take Colace or Miralax (both [id number]). It takes most people 3-4 days to have a bowel movement. Follow-up: 2-4 weeks If you have any acute concerns or questions, please do not hesitate to contact the office at [phone]. You may contact Dr. Swan with any questions after hours through the hospital at [phone] or on his cell phone at [phone]. 1. Encounter Date and Reason I certify that Mina Coker was seen by Joseph Swan MD on 07/13/23 and that I had a [id number] encounter with this patient that meets the physician face to face encounter requirements. 2. Clinical Findings Supporting Skilled Need and Homebound Status I certify that home health services are medically necessary, include either intermittent longterm and/or physical/speech therapy, and that this patient is homebound in that absences from the home require considerable and taxing effort and are infrequent or of short duration, or are attributable to the need to receive medical care. [X] (a) Attached documentation from encounter provides clinical findings supporting skilled need and homebound status (including what assistance patient requires to leave the home). The encounter with the patient was in whole, or in part, for the following medical condition, which is the primary reason for home health care: Right Hip Fracture [facility]: Physical Therapy: Steffi would benefit from physical therapy at home to help improve her gait and overall strength following a subacute, comminuted right femur fracture status post intramedullary nail fixation. She has baseline weakness as well as right foot deformity which complicates her recovery. She is weightbearing as tolerated without restrictions. No positioning restrictions. Speech Therapy: Homebound: Steffi is unable to leave her home unassisted due to significant weakness and gait alteration. 3. Certification and Authentication I certify that I composed the above information based on my clinical judgement relating to this patient's medical condition and, if applicable, clinical findings communicated to me by the NPP or inpatient physician who performed the Home Health Referral. All further orders will be obtained through Dr. Swan [place] Meds and New Rx's Prescriptions: New aspirin 81 mg tablet,delayed release (DR/EC) 81 mg PO BID Qty: 60 0RF docusate sodium [Colace] 100 mg capsule 100 mg PO BID PRNQty: 10 0RF oxycodone 5 mg tablet 5 mg PO Q4H PRNQty: 18 0RF naproxen 500 mg tablet 500 mg PO BID PRNQty: 60 0RF Continued triamcinolone acetonide [Nasacort] 55 mcg aerosol,spray 1 spray JAMEL BID melatonin 3 mg tablet 6 mg PO HS turmeric root extract 500 mg capsule 500 mg PO DAILY spironolactone 50 mg tablet 50 mg PO DAILY Qty: 90 1RF bupropion HCl 300 mg tablet extended release 24 hr 300 mg PO QAM Qty: 90 1RF desmopressin 0.2 mg tablet 0.4 mg PO HS Qty: 180 3RF duloxetine 60 mg capsule,delayed release(DR/EC) 60 mg PO DAILY Qty: 90 3RF lisinopril 40 mg tablet 40 mg PO DAILY Qty: 90 3RF diphenhydramine-acetaminophen [Tylenol PM Extra Strength] 1 EACH tablet 1 tab PO HS timolol maleate (PF) [Timoptic Ocudose (PF)] 1 EACH dropperette 1 drp Ophthalmic DAILY Rx Instructions: BOTH EYES B Complex Plus Vitamin C 1 EACH capsule 1 cap PO DAILY Probiotic and Acidophilus 1 EACH capsule 1 cap PO DAILY pedi multivit 17-iron fumarate 1 EACH tablet,chewable 2 tab PO DAILY calcium carbonate-vitamin D3 1 EACH tablet 1 ea PO DAILY glucosamine sulf-chondroitinSA 1 EACH capsule 1 ea PO BID cholecalciferol (vitamin D3) 5,000 UNIT tablet 5,000 unit PO DAILY dalfampridine [Ampyra] 10 mg tablet extended release 12 hr 10 mg PO BID Qty: 180 3RF omeprazole 20 mg capsule,delayed release(DR/EC) 20 mg PO DAILY Qty: 90 3RF baclofen 20 mg tablet 40 mg PO TID Qty: 540 3RF modafinil [Provigil] 200 mg tablet 200 mg PO BID Qty: 180 1RF metoprolol succinate 50 mg tablet extended release 24 hr 50 mg PO DAILY Qty: 90 3RF amlodipine 5 mg tablet 5 mg PO DAILY Qty: 90 3RF magnesium 500 mg tablet 500 mg PO DAILY acetaminophen 500 mg tablet 1,000 mg PO Q8H PRN (Reason: pain) Qty: 90 3RF Discontinued prednisone 50 mg tablet 50 mg PO DAILY Qty: 5 0RF Patient Comments: Pt states not taking 07/09/23 RL No Action (DME) AFO Refurbishment - new leather and adjust plastic See Rx Instructions .Route .MEDSUPPLY Qty: 1 0RF Rx Instructions: As directed - please adjust as the prior is worn out. Discharge Instructions Instructions: Hip Fracture (GEN) Stand Alone Forms: Nursing Discharge Form Activity:: Activity as Tolerated Equipment/Supplies:: No Equipment Needed Diet:: As Tolerated Discharge Orders Discharge Orders: Discharge Order (Routine); Ordered 07/13/23 Ordered By: Joseph Swan DS: Summary Time Spent with Patient providing and/or coordinating discharge services: Less than 30 minutes Status at Discharge Functional status at discharge: uses cane/walker Overall status at discharge: patient is progressing back to baseline Mental Status: mental status grossly normal Speech and Movement: speech and movement normal Mood: congruent mood Affect: normal affect Exam Narrative Exam Narrative: Sitting comfortably in the chair. NAD. AAOx3. RLE drssing c/d/i. Swelling and ecchymosis. Thigh is compressible. +ADF/APF/EHL/FHL. SILT DP/SP/Tib. Psych Mental Status: mental status grossly normal Speech and Movement: speech and movement normal Mood: congruent mood Affect: normal affect DS: Data Vitals/I&O Vitals and I&O: Vital Signs Temperature 37.1 C 07/13/23 08:22 Temperature Source Tympanic 07/13/23 08:22 Pulse 95 H 07/13/23 08:22 Pulse Rhythm Regular 07/13/23 08:15 Respiratory Rate 18 07/13/23 08:22 Respiratory Effort Normal 07/13/23 08:15 Respiratory Depth Normal 07/13/23 08:15 Respiratory Pattern Normal 07/13/23 08:15 Blood Pressure 136/81 07/13/23 08:22 Pulse Oximetry 95 07/13/23 08:22 Oxygen Delivery Method Room Air 07/13/23 08:22 Oxygen Flow Rate 0 07/13/23 08:22 Pain Level 5 07/13/23 09:35 Comment pulse called over the radio 07/12/23 07:45 Intake & Output 07/12/23 07/13/23 07/13/23 23:59 11:59 23:59 Intake Total 2000 / 3000 Output Total 300 / 2300 100 / 100 Balance 1700 / 700 -100 / -100 Intake: IV 2000 / 3000 Output: Urine 300 / 2300 100 / 100 Other: Urine Color Light Tania Yellow Urine Appearance Clear Clear Comment unknown amount pt was incontinent Stool Size Large Stool Characteristics Liquid Voiding Methods Diaper Diaper Incontinent Incontinent PFSH All Active Problems Closed intertrochanteric fracture of right hip (Acute) Closed comminuted intertrochanteric fracture of right femur (Acute ~06/2023) Foot pain (Acute) Arthritis (Acute) Pes planus (Acute) Anemia (Acute) Essential hypertension (Chronic 09/02/13) Foot drop, left (Acute 05/17/15) Multiple sclerosis (Chronic 1991) Neurogenic bladder (Acute 01/13/16) Spasticity (Chronic 05/17/15) Synovial cyst of popliteal space (Acute) Urge incontinence of urine (Acute 08/08/12) Memory loss (Chronic) Depression (Chronic) Fatigue (Acute) Acquired pes planus of right foot (Chronic) chronic pain in foot; possible surgery Constipation due to neurogenic bowel (Acute) Medical History Closed subcapital fracture of left femur S/P L BELEN --DOS 03/15/22 GERD (gastroesophageal reflux disease) Left carpal tunnel syndrome managed non-surgically Murmur, cardiac Optic neuritis Spinal stenosis of lumbar region with radiculopathy Surgical History S/P left knee arthroscopy partial medial meniscectomy, L S/P ovarian cystectomy S/P tonsillectomy and adenoidectomy Status post bunionectomy Status post lumbar laminectomy (~07/2022) Status post myringotomy with insertion of tube 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 Social History Smoking/Tobacco Use Status: Former Tobacco Use tobacco type: cigarettes Quit Date: 11/12/07 Tobacco: How many years used: 12 Second Hand Exposure: Yes Smoking risk assessment performed?: Yes Alcohol Intake: current Alcohol Intake frequency: a few times a month Alcohol type: beer, wine and hard liquor Drug use: Daily Substance use type: marijuana Caregiver/Support person: No Household members: spouse Housing: other Number of Children: 1 Communication Needs: None Do you need help understanding health information?: Never current occupation: [employer] 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 Pets and animals: Yes Pets and animals: cat(s) Sexually active: Yes Do you think of yourself as: straight/heterosexual Current gender identity: female What is your relationship status?: How often do you talk on the phone with friends or family?: never How often do you get together with friends or relatives?: never How often do you attend oriental orthodox or scientologist services?: decline to answer Do you belong to any clubs or organized social groups?: no Panel score (0-1 are the most socially isolated patients): 1 What type of physical activity do you participate in: bicycling Duration: 15-30 minutes/day Frequency: 3-4 times per week Veda/Roman Catholic: None Special veda needs: No Seatbelt use: always Helmet use: Yes Helmet use: sometimes Drive intox or ride w/intox non emergency services ambulance driver: No Do you feel safe at home: Yes Do you feel safe in your relationship?: Yes Additional Social history: Enjoys reading, cross-stitch. Time Spent with Patient Time Spent with Patient: <45 minutes Time was spent: preparing to see the patient(eg.review tests), obtaining and/or reviewing separately otained hiistory, ordering medications,tests, procedures and counseling the patient
--- NOTE | 2023-07-13 14:16 | PDOC.CMDIS ---
Date of service: 07/13/23 Time of Service: 14:16 LACE Index Scoring Tool Questions: Length of Stay (in days): 1 Was the patient admitted via the E.D.?: Yes E.D. Visits: 1 Answers: Total Score: 5 Risk of Readmission: Low Risk Care Management Discharge Plan Reason for Hospitalization: Right hip fracture Discharge Plan: Mina is discharged home with [facility] PT services. She will follow up with community providers and discharge plan of care as instructed. She is driven home via private vehicle with family. Patient/Family Education Needs: Review discharge instructions, limitations, medications and plan to follow up with community provider. Discuss ask me three. Services Needed at Discharge: Home Health Care Services ([facility] RN)
== END 2023-07-13 15:33 | disposition home health service (06) | DRG 481 ==
LOC: ER 12:55 → MS 14:18
PROVIDERS: Admitting Provider Student in an Organized Health Care Education/Training Program; Emergency Provider Student in an Organized Health Care Education/Training Program; PCP Family Medicine; Visit Provider Student in an Organized Health Care Education/Training Program
PROC: 0QS606Z Reposition Right Upper Femur with Intramedullary Internal Fixation Device, Open Approach (ICD-10-PCS; CPT 27245; principal; 2023-07-10 15:30)
DX: M80.051A Age-related osteoporosis with current pathological fracture, right femur, initial encounter for fracture (principal); K59.2 Neurogenic bowel, not elsewhere classified; K59.00 Constipation, unspecified; N31.9 Neuromuscular dysfunction of bladder, unspecified; G35 Multiple sclerosis; D64.9 Anemia, unspecified; I10 Essential (primary) hypertension; M21.372 Foot drop, left foot; N39.41 Urge incontinence; F32.A Depression, unspecified; R41.3 Other amnesia; R25.2 Cramp and spasm; K21.9 Gastro-esophageal reflux disease without esophagitis; M48.061 Spinal stenosis, lumbar region without neurogenic claudication; M54.16 Radiculopathy, lumbar region; Z96.642 Presence of left artificial hip joint; Z87.891 Personal history of nicotine dependence; F12.90 Cannabis use, unspecified, uncomplicated
CPT/HCPCS: 27245; 36410; 36415; 80048; 80053; 85027; 86850; 86900; 86901; 96374; 96375; 97110; 97116; 97162; 97530; 99223; 99285; 73501; 73502; 73700; 74018; 85014; 85018; 85025; 88304; 88307; 88311; 93971; 99284; J0131; J0690; J1100; J1170; J1790; J2250; J2371; J2405; J2704; J3010

== ENCOUNTER 2023-07-23 11:56 | Outpatient (CLI) | payer MEDICARE, SELFPAY ==
--- NOTE | 2023-07-23 08:30 | DI.RAD_ITS ---
Exam(s) XR HIP RT AP LAT ONLY EXAM: XR HIP RT AP LAT ONLY CLINICAL HISTORY: s/p ORIF R FEMUR. TECHNIQUE: 2D digital imaging was performed. COMPARISON: CR XR ABDOMEN FLAT PLATE from 07/12/2023 CR XR HIP RT AP LAT ONLY from 07/12/2023 FINDINGS: Two views. Again noted is post reduction internal fixation of right hip intertrochanteric fracture. Allowing for slight changes in technique there appears to be some change at the fracture site specifi lisa lesser trochanter region. Calcification in the musculature above the hip is again noted IMPRESSION: Slight change at healing fracture site evident. Further views recommended. DATA REPOSITORY: RADIATION DOSE DELIVERED:
== END 2023-07-23 11:57 | disposition home or self-care (01) ==
LOC: DIORS 11:56
PROVIDERS: PCP Family Medicine; Referring Provider Family Medicine
DX: S72.141D Displaced intertrochanteric fracture of right femur, subsequent encounter for closed fracture with routine healing; X58.XXXD Exposure to other specified factors, subsequent encounter
CPT/HCPCS: 73502

== ENCOUNTER 2023-08-17 18:30 | Inpatient (IN) | payer MEDICARE, SELFPAY ==
[2023-08-17] VITALS (9 sets, daily range): BP systolic 117–132; BP diastolic 69–76; PULSE 64–82; RESP 8–20; TEMP 36.6–36.8; O2SAT 93–98
--- NOTE | 2023-08-17 18:30 | DI.RAD_ITS ---
Exam(s) XR PELVIS AP XR TIB/FIB RT XR FEMUR RT EXAM: XR PELVIS AP and XR tib/fib RT and XR femur RT CLINICAL HISTORY: post op femur fx, now new fall, suspect injury/fx. TECHNIQUE: 2D digital imaging was performed.Eight images were obtained. COMPARISON: CR XR HIP RT COMPLETE AP PELVIS from 07/09/2023 CR XR HIP RT AP LAT ONLY from 07/12/2023 FINDINGS: BONES: The patient has had a prior intramedullary nail and screw transfixing an intertrochanteric fra cture of the right femur. There is an acute comminuted fracture seen involving the proximal metadiap hyseal junction of the right femur. The distal fracture is displaced 1 shaft's width posteriorly and laterally. The fracture occurs at the level of the femoral beti of the orthopedic hardware. There m ay be mild displacement of the fracture components of the previous intertrochanteric fracture. Howev er, this evaluation is limited due to positioning of the hip. Patient has a prior left hip prosthesi s. No acute fracture of the tibia or fibula air noted. The bones are osteopenic. No pelvic fractur e is seen. JOINTS: No dislocation present. The sacroiliac joints and symphysis pubis are intact. SOFT TISSUE: There is nonspecific soft tissue swelling of the calf. IMPRESSION: 1. There is an acute displaced fracture which is comminuted involves the proximal metadiaphyseal port ion of the right femur. This occurs at the distal aspect of the right hip orthopedic hardware. 2. Prior internal fixation from a intertrochanteric fracture of the right femur. 3. Previous left hip arthroplasty. 4. No evidence of a tibial, fibular or pelvic fracture. DATA REPOSITORY: RADIATION DOSE DELIVERED:
[2023-08-17] MEDS: ACETAMINOPHEN 1,000 MG/100 ML BTL 400 MG IVPB (18:51)
--- NOTE | 2023-08-17 18:54 | ED.GENADUL_ITS ---
Discharge Plan Disposition Patient Disposition: Admit to [facility] Condition: Good Discharge Details Chief Complaint: Orthopedic Clinical Impression: Closed right femoral fracture Primary Care Provider: Elizabeth Nunn ED Provider: Thomas Mason Home Meds and New Rx's Prescriptions: No Action triamcinolone acetonide [Nasacort] 55 mcg aerosol,spray 1 spray JAMEL BID melatonin 3 mg tablet 6 mg PO HS turmeric root extract 500 mg capsule 500 mg PO DAILY spironolactone 50 mg tablet 50 mg PO DAILY Qty: 90 1RF bupropion HCl 300 mg tablet extended release 24 hr 300 mg PO QAM Qty: 90 1RF desmopressin 0.2 mg tablet 0.4 mg PO HS Qty: 180 3RF duloxetine 60 mg capsule,delayed release(DR/EC) 60 mg PO DAILY Qty: 90 3RF lisinopril 40 mg tablet 40 mg PO DAILY Qty: 90 3RF diphenhydramine-acetaminophen [Tylenol PM Extra Strength] 1 EACH tablet 1 tab PO HS timolol maleate (PF) [Timoptic Ocudose (PF)] 1 EACH dropperette 1 drp Ophthalmic DAILY Rx Instructions: BOTH EYES B Complex Plus Vitamin C 1 EACH capsule 1 cap PO DAILY Probiotic and Acidophilus 1 EACH capsule 1 cap PO DAILY pedi multivit 17-iron fumarate 1 EACH tablet,chewable 2 tab PO DAILY calcium carbonate-vitamin D3 1 EACH tablet 1 ea PO DAILY glucosamine sulf-chondroitinSA 1 EACH capsule 1 ea PO BID cholecalciferol (vitamin D3) 5,000 UNIT tablet 5,000 unit PO DAILY omeprazole 20 mg capsule,delayed release(DR/EC) 20 mg PO DAILY Qty: 90 3RF baclofen 20 mg tablet 40 mg PO TID Qty: 540 3RF modafinil [Provigil] 200 mg tablet 200 mg PO BID Qty: 180 1RF (DME) AFO Refurbishment - new leather and adjust plastic See Rx Instructions .Route .MEDSUPPLY Qty: 1 0RF Rx Instructions: As directed - please adjust as the prior is worn out. amlodipine 5 mg tablet 5 mg PO DAILY Qty: 90 3RF dalfampridine [Ampyra] 10 mg tablet extended release 12 hr 10 mg PO BID Qty: 180 3RF metoprolol succinate 50 mg tablet extended release 24 hr 100 mg PO DAILY Qty: 90 3RF magnesium 500 mg tablet 500 mg PO DAILY aspirin 81 mg tablet,delayed release (DR/EC) 81 mg PO BID Qty: 60 0RF docusate sodium [Colace] 100 mg capsule 100 mg PO BID PRNQty: 10 0RF oxycodone 5 mg tablet 5 mg PO Q4H PRNQty: 18 0RF naproxen 500 mg tablet 500 mg PO BID PRNQty: 60 0RF acetaminophen 500 mg tablet 1,000 mg PO Q8H PRN (Reason: pain) Qty: 90 3RF Medical Decision Making 58-year-old female with a past medical history of a right femur fracture which required operative open reduction and intramedullary fixation of the proximal femur which was performed on 07/10/2023, subsequent bone biopsy showed no evidence of malignancy. The patient had been doing well but unfortunately today when she was trying to pull up her pants after going to the bathroom she fell and twisted her leg and landed on her right leg/hip. She developed immediate pain and was not able to get up on her own. She denies any numbness or tingling. She was brought here by private vehicle, and noticed significant swelling in the thigh. She does not complain of any pain when she is not being moved. She does complain of pain with movement. No other complaints at this time. No other modifying factors. Exam demonstrates evidence of swelling in the mid femur, tenderness in the same area. Questionable crunching with movement. No tenderness in the knee. Mild anterior midshaft tibial tenderness. Distal exam demonstrates intact pulses and sensation. No evidence of compartment syndrome at this time. Concern for postoperative fracture along the hardware. Will give Ofirmev, get x-rays, monitor closely and reassess. 9:31 PM X-ray shows evidence of a notable fracture just inferior to the previous orthopedic hardware. Distal exam reveals intact +2 pulses, intact sensation, brisk capillary refill. Patient shows no evidence of compartment syndrome clinically at this time. Contacted orthopedics/Dr. Swan. He feels that this can be managed surgically here. Recommends admission to himself. Does not recommend like traction at this time. NSAIDs and narcotics were unhelpful in managing her pain. We did call anesthesia and Immanuel placed a femoral nerve block. Patient demonstrated good neurovascular exam just prior to block administration. I did contact the patient's and discussed the case with him. He agrees with the plan. Patient will be admitted under Dr. Swan. I will place admission orders on his behalf. I have extensively reviewed the treatment plan with the patient. I have addressed all patient concerns at this time. I have also discussed the plan with the admitting physician and they agree with the current assessment and plan and have agreed to assume responsibility for the patient. All parties demonstrate verbal understanding and agreement with our assessment and plan at this time. The documentation in this chart was dictated using [employer] dictation software. Please excuse any dictation errors. FINDINGS: Stomach and bowel: Visualized small bowel and colon are unremarkable. Appendix: No evidence of appendicitis. Intraperitoneal space: No free fluid within the pelvis. Lymph nodes: Unremarkable. No enlarged lymph nodes. Urinary bladder: Urinary bladder is unremarkable. Reproductive: Normal as visualized. Bones/joints: Lower lumbar spine degenerative disease with L4-L5 fusion and L4 laminectomy. No acute pelvic fracture or diastasis. Total left hip arthroplasty in position. Previous right hip inter trochanteric fracture repair with TFN hardware. The inter trochanteric fracture fragments show incomplete healing. There is now an acute fracture of the femur along the distal aspect of the TFN beti. This is a completely displaced and mildly comminuted fracture. Soft tissues: Intramuscular hematoma of the anterior thigh compartment. Moderate size. IMPRESSION 1. Proximal right femur acute metaphyseal completely displaced and mildly comminuted fracture at the distal aspect of a TFN hardware beti. Hardware is from previous inter trochanteric fracture repair. Inter trochanteric fracture fragments without bony union at this time. 2. Left hip total arthroplasty in alignment. 3. Lower lumbar spine degenerative disease. Previous fusion L4-L5 and L4 juju ctomy. Thank you for allowing us to participate in the care of your patient. Dictated and Authenticated by: Reese Bruno MD 08/17/2023 9:02 PM Eastern Time ([place] & [place]) FINDINGS: Stomach and bowel: Visualized small bowel and colon are unremarkable. Appendix: No evidence of appendicitis. Intraperitoneal space: No free fluid within the pelvis. Lymph nodes: Unremarkable. No enlarged lymph nodes. Urinary bladder: Urinary bladder is unremarkable. Reproductive: Normal as visualized. Bones/joints: Lower lumbar spine degenerative disease with L4-L5 fusion and L4 laminectomy. No acute pelvic fracture or diastasis. Total left hip arthroplasty in position. Previous right hip inter trochanteric fracture repair with TFN hardware. The inter trochanteric fracture fragments show incomplete healing. There is now an acute fracture of the femur along the distal aspect of the TFN beti. This is a completely displaced and mildly comminuted fracture. Soft tissues: Intramuscular hematoma of the anterior thigh compartment. Moderate size. IMPRESSION: 1. Proximal right femur acute metaphyseal completely displaced and mildly comminuted fracture at the distal aspect of a TFN hardware beti. Hardware is from previous inter trochanteric fracture repair. Inter trochanteric fracture fragments without bony union at this time. 2. Left hip total arthroplasty in alignment. 3. Lower lumbar spine degenerative disease. Previous fusion L4-L5 and L4 laminectomy. Thank you for allowing us to participate in the care of your patient. Dictated and Authenticated by: Reese Bruno MD 08/17/2023 9:02 PM Eastern Time ([place] & [place]) HPI General Date/Time Provider Initiated Documentation: 08/17/23 18:32 . HPI Narrative: 58-year-old female with a past medical history of a right femur fracture which required operative open reduction and intramedullary fixation of the proximal femur which was performed on 07/10/2023, subsequent bone biopsy showed no evidence of malignancy. The patient had been doing well but unfortunately today when she was trying to pull up her pants after going to the bathroom she fell and twisted her leg and landed on her right leg/hip. She developed immediate pain and was not able to get up on her own. She denies any numbness or tingling. She was brought here by private vehicle, and noticed significant swelling in the thigh. She does not complain of any pain when she is not being moved. She does complain of pain with movement. No other complaints at this time. No other modifying factors. Related Data Home Medications Medication Instructions Recorded Confirmed Lactobacillus comb 1 cap PO DAILY 02/04/13 08/17/23 no.[id number] 300 million cell-250 mg capsule (Probiotic and Acidophilus) diphenhydramine 25 1 tab PO HS 02/04/13 08/17/23 mg-acetaminophen 500 mg tablet (Tylenol PM Extra Strength) pediatric multivit no.17-ferrous 2 tab PO DAILY 02/04/13 08/17/23 fumarate 15 mg iron chewable tablet timolol maleate (PF) 0.25 % eye 1 drp ophthalmic (eye) DAILY 02/04/13 08/17/23 drops in a dropperette (Timoptic Ocudose (PF)) vitamin B comp and C no.3 15 mg-10 1 cap PO DAILY 02/04/13 08/17/23 mg-50 mg-5 mg-300 mg capsule (B Complex Plus Vitamin C) calcium carbonate 600 mg-vitamin 1 ea PO DAILY 01/26/15 08/17/23 D3 5 mcg (200 unit) tablet cholecalciferol (vitamin D3) 125 5,000 unit PO DAILY 01/26/15 08/17/23 mcg (5,000 unit) tablet glucosamine sulfate 250 1 ea PO BID 01/26/15 08/17/23 mg-chondroitin sulfate A 200 mg capsule triamcinolone acetonide 55 mcg 1 spray intranasal BID 07/22/18 08/17/23 nasal spray aerosol (Nasacort) melatonin 3 mg tablet 6 mg PO HS 03/25/19 08/17/23 turmeric root extract 500 mg 500 mg PO DAILY 05/07/19 08/17/23 capsule magnesium 500 mg tablet 500 mg PO DAILY 04/19/22 08/17/23 duloxetine 60 mg capsule,delayed 60 mg PO DAILY #90 caps 09/29/22 08/17/23 release lisinopril 40 mg tablet 40 mg PO DAILY #90 tabs 09/29/22 08/17/23 omeprazole 20 mg capsule,delayed 20 mg PO DAILY #90 caps 10/17/22 08/17/23 release desmopressin 0.2 mg tablet 0.4 mg PO HS #180 tabs 10/26/22 08/17/23 baclofen 20 mg tablet 40 mg PO TID #540 tabs 12/25/22 08/17/23 spironolactone 50 mg tablet 50 mg PO DAILY #90 tabs 02/09/23 08/17/23 bupropion HCl 300 mg 24 hr tablet, 300 mg PO QAM #90 tabs 03/16/23 08/17/23 extended release modafinil 200 mg tablet (Provigil) 200 mg PO BID #180 tabs 03/22/23 08/17/23 AFO Refurbishment - new leather #1 ea 06/15/23 07/23/23 and adjust plastic amlodipine 5 mg tablet 5 mg PO DAILY #90 tabs 06/26/23 08/17/23 acetaminophen 500 mg tablet 1,000 mg PO Q8H PRN pain #90 tabs 07/13/23 08/17/23 aspirin 81 mg tablet,delayed 81 mg PO BID #60 tabs 07/13/23 07/23/23 release docusate sodium 100 mg capsule 100 mg PO BID PRN #10 caps 07/13/23 08/17/23 (Colace) naproxen 500 mg tablet 500 mg PO BID PRN #60 tabs 07/13/23 08/17/23 oxycodone 5 mg tablet 5 mg PO Q4H PRN #18 tabs 07/13/23 07/23/23 dalfampridine 10 mg 10 mg PO BID #180 tabs 07/16/23 08/17/23 tablet,extended release,12 hr (Ampyra) metoprolol succinate 50 mg 100 mg PO DAILY #90 tabs 08/01/23 08/17/23 tablet,extended release 24 hr Previous Rx's Medication Instructions Recorded duloxetine 60 mg capsule,delayed 60 mg PO DAILY #90 caps 09/29/22 release lisinopril 40 mg tablet 40 mg PO DAILY #90 tabs 09/29/22 omeprazole 20 mg capsule,delayed 20 mg PO DAILY #90 caps 10/17/22 release desmopressin 0.2 mg tablet 0.4 mg PO HS #180 tabs 10/26/22 baclofen 20 mg tablet 40 mg PO TID #540 tabs 12/25/22 spironolactone 50 mg tablet 50 mg PO DAILY #90 tabs 02/09/23 bupropion HCl 300 mg 24 hr tablet, 300 mg PO QAM #90 tabs 03/16/23 extended release modafinil 200 mg tablet (Provigil) 200 mg PO BID #180 tabs 03/22/23 AFO Refurbishment - new leather #1 ea 06/15/23 and adjust plastic amlodipine 5 mg tablet 5 mg PO DAILY #90 tabs 06/26/23 acetaminophen 500 mg tablet 1,000 mg PO Q8H PRN pain #90 tabs 07/13/23 aspirin 81 mg tablet,delayed 81 mg PO BID #60 tabs 07/13/23 release docusate sodium 100 mg capsule 100 mg PO BID PRN #10 caps 07/13/23 (Colace) naproxen 500 mg tablet 500 mg PO BID PRN #60 tabs 07/13/23 oxycodone 5 mg tablet 5 mg PO Q4H PRN #18 tabs 07/13/23 dalfampridine 10 mg 10 mg PO BID #180 tabs 07/16/23 tablet,extended release,12 hr (Ampyra) metoprolol succinate 50 mg 100 mg PO DAILY #90 tabs 08/01/23 tablet,extended release 24 hr Allergies Allergy/AdvReac Type Severity Reaction Status Date / Time Sulfa (Sulfonamide Allergy Intermediate SKIN RASH Verified 08/17/23 18:38 Antibiotics) Penicillins Allergy Unknown RASH Verified 08/17/23 18:38 chlorthalidone AdvReac Severe Hyponatremi Verified 08/17/23 18:38 a codeine AdvReac Unknown NAUSEA Verified 08/17/23 18:38 General Stated Complaint: Orthopedic LAI: 3 Review of Systems All systems reviewed & are unremarkable except as noted in HPI and below PFSH All Active Problems (Updated 08/17/23 @ 21:33 by Thomas Mason DO) Closed right femoral fracture (Acute) Closed comminuted intertrochanteric fracture of right femur (Acute ~06/2023) Open reduction and intramedullary fixation DOS: 07/10/2023 Foot pain (Acute) Arthritis (Acute) Pes planus (Acute) Anemia (Acute) Essential hypertension (Chronic 09/02/13) Foot drop, left (Acute 05/17/15) Multiple sclerosis (Chronic 1991) Neurogenic bladder (Acute 01/13/16) Spasticity (Chronic 05/17/15) Synovial cyst of popliteal space (Acute) Urge incontinence of urine (Acute 08/08/12) Memory loss (Chronic) Depression (Chronic) Fatigue (Acute) Acquired pes planus of right foot (Chronic) chronic pain in foot; possible surgery Medical History Closed subcapital fracture of left femur S/P L BELEN --DOS 03/15/22 GERD (gastroesophageal reflux disease) Left carpal tunnel syndrome managed non-surgically Murmur, cardiac Optic neuritis Spinal stenosis of lumbar region with radiculopathy Surgical History S/P left knee arthroscopy partial medial meniscectomy, L S/P ovarian cystectomy S/P tonsillectomy and adenoidectomy Status post bunionectomy Status post lumbar laminectomy (~07/2022) Status post myringotomy with insertion of tube 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 Social History Smoking/Tobacco Use Status: Former Tobacco Use tobacco type: cigarettes Quit Date: 11/12/07 Tobacco: How many years used: 12 Second Hand Exposure: Yes Smoking risk assessment performed?: Yes Alcohol Intake: current Alcohol Intake frequency: a few times a month Alcohol type: beer, wine and hard liquor Drug use: Daily Substance use type: marijuana Caregiver/Support person: No Household members: spouse Housing: other Number of Children: 1 Communication Needs: None Do you need help understanding health information?: Never current occupation: [employer] 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 Pets and animals: Yes Pets and animals: cat(s) Sexually active: Yes Do you think of yourself as: straight/heterosexual Current gender identity: female What is your relationship status?: How often do you talk on the phone with friends or family?: never How often do you get together with friends or relatives?: never How often do you attend sabianism or holiness services?: decline to answer Do you belong to any clubs or organized social groups?: no Panel score (0-1 are the most socially isolated patients): 1 What type of physical activity do you participate in: bicycling Duration: 15-30 minutes/day Frequency: 3-4 times per week Veda/Druze: None Special veda needs: No Seatbelt use: always Helmet use: Yes Helmet use: sometimes Drive intox or ride w/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 Exam Narrative Exam Narrative: 1.Const: Well-nourished, Well-developed, appearing stated age 2.Eyes: PERRL, no conjunctival injection, and symmetrical lids. 3.ENT: Atraumatic external nose and ears. Moist MM. Neck: Symmetric, trachea midline, No thyromegaly. 4.CVS: +S1/S2, No murmurs or gallops. Peripheral pulses 2+ and equal in all extremities. Brisk capillary refill in all extremities. 5.RESP: Unlabored respiratory effort. Clear to auscultation bilaterally. No wheezes rales or rhonchi 6.GI: Soft, Nontender/Nondistended, No hepatosplenomegaly. No guarding or rebound. 7.MSK: Right thigh demonstrates notable swelling in the thigh, tenderness mid thigh. No tenderness in the knee. Mild anterior tibial midshaft tenderness. Sensation intact. Mild distal swelling which the patient states is normal. No pain with movement of the knee or foot. Notable pain in the mid femur with movement of the leg. Distal neurovascular exam on the right lower extremity demonstrates intact pulses and sensation. 8.Skin: Warm, Dry. No rashes or lesions. 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 Sensation grossly intact, no focal neurologic deficits. 10.Psych: (AAO) x3. Appropriate mood and affect Course Vital Signs Vital signs: Vital Signs Temperature 36.6 C 08/17/23 18:32 Pulse 69 08/17/23 18:32 Respiratory Rate 20 08/17/23 18:32 Blood Pressure 132/69 08/17/23 18:32 Pulse Oximetry 97 08/17/23 18:32 Temperature 36.6 C 08/17/23 18:32 Temperature Source Skin 08/17/23 18:32 Pulse 69 08/17/23 18:32 Respiratory Rate 20 08/17/23 18:32 Blood Pressure 132/69 08/17/23 18:32 Blood Pressure Position Sitting 08/17/23 18:32 Pulse Oximetry 97 08/17/23 18:32 Oxygen Delivery Method Room Air 10/06/23 18:32 Oxygen Flow Rate 0 08/17/23 18:32 Pain Level 7 08/17/23 18:32
--- NOTE | 2023-08-17 20:15 | DI.CT_ITS ---
Exam(s) CT PELVIC WO CT LOWER EXTREMITY RT WO EXAM: CT PELVIC WO and CT lower extremity RT without CLINICAL HISTORY: fx, eval for surgery. TECHNIQUE: Imaging Protocol: Axial computed tomography images with coronal and sagittal reformatted images were created and reviewed. CONTRAST MATERIAL: Oral: No COMPARISON: CT PELVIC/LOWER ABD WITHOUT CONT from 09/14/2012 CR,XR XR FEMUR RT from 08/17/2023 CR,XR XR PELVIS AP from 08/17/[address] LOWER EXTREMITY RT WO from 08/17/2023 CR,XR XR TIB/FIB RT from 08/17/2023 FINDINGS: There is artifact in the pelvis from the patient's right nail and screw transfixing the patient's sub acute intertrochanteric right femoral fracture. PELVIS: Abdominal Aorta: Abdominal portion non-dilated. Bowel: No obstruction or bowel wall thickening. No evidence of appendicitis. Peritoneal Cavity: No ascites, collection or mesenteric inflammatory response. Soft Tissues: Intramuscular hematoma is seen in the anterior thigh compartment. Bladder: Symmetric distention, no gross wall thickening. Reproductive Organs: Unremarkable as visualized. Lymph Nodes: Within normal limits. Bones: There is an intramedullary beti and screw transfixing the patient's subacute intertrochanteric fracture of the right femur. There is an acute comminuted fracture of the proximal metadiaphyseal ju nction of the right femur involving the distal aspect of the femoral orthopedic nail. The distal fra cture is posteriorly displaced. Is displaced over 1 shaft's width. The patient has a prior left tot al hip replacement. The distal femur and the visualized portions of the proximal tibia and fibula ar e unremarkable. Posterior spinal surgery is seen in the lower lumbar spine. IMPRESSION: 1. Acute comminuted completely displaced fracture involving the proximal metadiaphyseal junction of t he right femur. The fracture occurs across the distal aspect of the beti in the right femur. 2. Intramuscular hematoma involving the right anterior thigh muscle compartment. 3. Subacute intertrochanteric fracture of the right femur with internal fixation. 4. Old left total hip arthroplasty which is unremarkable. RADIATION DOSE DELIVERED: 393.64mGy.cmTotal DLP 393.64mGy.cmTotal DLP DATA REPOSITORY: All CT scans at this facility are submitted to the National Radiology Data Registry (NRDR) Dose Index Registry (DIR) with the [employer] (ACR). RADIATION OPTIMIZATION: All CT scans at this facility use at least one of these dose optimization te chniques: automated exposure control; mA and/or kV adjustment per patient size (includes targeted exa ms where dose is matched to clinical indication); or iterative reconstruction.
[2023-08-17] MEDS: Ondansetron 4 MG/2 ML VIAL IVP (20:27)
[2023-08-17 20:35] LABS: Abs Immature Grans 0.06 10^3/uL (0.0-0.06); Absolute Basophil Count 0.06 10^3/uL (0.0-0.2); Absolute Eosinophil Count 0.11 10^3/uL (0.0-0.7); Absolute Lymphocyte Count 1.73 10^3/uL (1.2-3.4); Absolute Monocyte Count 1.31 10^3/uL (0.1-0.8); Basophils % 0.5; Eosinophils % 0.9; HGB 10.9 g/dL (11.2-15.7); Immature Grans % 0.5; Lymphocytes % 14.3; MCH 31.7 pg (27.0-33.0); MCHC 32.1 % (32.0-36.0); MCV 99 fL (80-95); MPV 8.8 fL (8.0-11.0); Monocytes % 10.8; Platelet Count 618 10^3/uL (130-400); RBC 3.44 10^6/uL (3.93-5.22); RDW 13.9 % (11.7-14.6); RDW-SD 50.4 fL; WBC 12.09 10^3/uL (4.4-10.8)
--- NOTE | 2023-08-17 20:36 | DI.VRAD_ITS ---
PROCEDURE INFORMATION: Exam: XR Right Tibia and Fibula Exam date and time: 08/17/2023 7:37 PM Age: 58 years old Clinical indication: Pain; Lower leg; Right; Patient HX: Fall; Recent hip surgery TECHNIQUE: Imaging protocol: Radiologic exam of the right tibia and fibula. Views: 2 views. COMPARISON: CT LOWER EXTREMITY RT WO 07/09/2023 1:04 PM FINDINGS: Bones/joints: No acute changes of the tibia or fibula. No fracture. No osteolytic or destructive lesions. No periosteal elevation. Soft tissues: Mild soft tissue swelling of the calf. This is nonspecific. IMPRESSION: 1. No acute fracture or dislocation. 2. Mild nonspecific soft tissue swelling. Dictated and Authenticated by: Reese Bruno MD. Ordering:ADALBERTO Guzman MD
[2023-08-17 20:37] LABS: Absolute Neutrophil Count 8.83 10^3/uL (1.2-6.7)
--- NOTE | 2023-08-17 20:38 | DI.VRAD_ITS ---
PROCEDURE INFORMATION: Exam: XR Pelvis Exam date and time: 08/17/2023 7:31 PM Age: 58 years old Clinical indication: Hip pain; Right hip; Prior surgery; Surgery date: <1 month; Surgery type: Hip surgery; Patient HX: Fall TECHNIQUE: Imaging protocol: Radiologic exam of the pelvis. Views: 1 or 2 view. COMPARISON: CR XR HIP RT COMPLETE AP PELVIS 07/09/2023 10:12 AM FINDINGS: Bones/joints: Osteopenia. No pelvic fracture or diastasis. Lower lumbar spine degenerative disease and previous fusion. Left hip total arthroplasty in position. Previous right inter trochanteric fracture repair with TFN hardware. There appears to be an acute fracture at the distal aspect of the right hip TFN stem. This appears displaced. There is a pending femur x-ray. Soft tissues: Dystrophic calcification within the right gluteal region likely reflecting the previous right hip surgery. IMPRESSION: 1. Proximal right femur fracture which appears to be adjacent to the distal aspect of the stem of TFN hardware. Previous right inter trochanteric fracture repair. 2. No evidence of pelvic fracture or diastasis. 3. Lower lumbar spine surgical change and previous fusion. 4. Left hip total arthroplasty. Dictated and Authenticated by: Reese Bruno MD. Ordering:ADALBERTO Guzman MD
--- NOTE | 2023-08-17 20:40 | DI.VRAD_ITS ---
PROCEDURE INFORMATION: Exam: XR Right Femur Exam date and time: 08/17/2023 7:33 PM Age: 58 years old Clinical indication: Pain; Right; Patient HX: Fall; Hip surgery in June 2023 TECHNIQUE: Imaging protocol: Radiologic exam of the right femur. Views: 2 views. COMPARISON: CT LOWER EXTREMITY RT WO 07/09/2023 1:04 PM FINDINGS: Bones/joints: Completely displaced proximal femoral metaphyseal fracture at the level of the distal aspect of a femoral beti related to a previous TFN fracture repair. This is an oblique fracture of the femur. Complete anterior displacement and medial displacement of the proximal aspect. Minor comminution. Soft tissues: Soft tissue swelling of the proximal thigh. Dystrophic calcium deposition in the right gluteal region of uncertain significance IMPRESSION: Completely displaced right proximal femur metaphyseal oblique fracture with mild comminution. This is at the distal aspect of a TFN hardware medullary beti. Dictated and Authenticated by: Reese Bruno MD. Ordering:ADALBERTO Guzman MD
[2023-08-17 20:51] LABS: ALT 17 U/L (14-59); AST 21 U/L (15-37); Albumin 3.8 g/dL (3.4-5.0); Alkaline Phosphatase 226 U/L (46-116); BUN 13 mg/dL (7-18); Bilirubin, Total 0.2 mg/dL (0.2-1.0); CREATININE 0.6 mg/dL (0.55-1.02); Calcium 9.3 mg/dL (8.5-10.1); Chloride 94 mmol/L (98-107); Estimated GFR 104.63 (mL/min/1.73m2); Glucose 110 mg/dL (74-106); Potassium 3.8 mmol/L (3.5-5.1); Sodium 131 mmol/L (136-145); Total Protein 7.5 g/dL (6.4-8.2)
--- NOTE | 2023-08-17 21:03 | DI.VRAD_ITS ---
PROCEDURE INFORMATION: Exam: CT Pelvis Without Contrast Exam date and time: 08/17/2023 8:32 PM Age: 58 years old Clinical indication: Hip pain; Right hip; Patient HX: FX eval for surgery TECHNIQUE: Imaging protocol: Computed tomography of the pelvis without contrast. Radiation optimization: All CT scans at this facility use at least one of these dose optimization techniques: automated exposure control; mA and/or kV adjustment per patient size (includes targeted exams where dose is matched to clinical indication); or iterative reconstruction. COMPARISON: XR PELVIS AP 08/17/2023 7:31 PM FINDINGS: Stomach and bowel: Visualized small bowel and colon are unremarkable. Appendix: No evidence of appendicitis. Intraperitoneal space: No free fluid within the pelvis. Lymph nodes: Unremarkable. No enlarged lymph nodes. Urinary bladder: Urinary bladder is unremarkable. Reproductive: Normal as visualized. Bones/joints: Lower lumbar spine degenerative disease with L4-L5 fusion and L4 laminectomy. No acute pelvic fracture or diastasis. Total left hip arthroplasty in position. Previous right hip inter trochanteric fracture repair with TFN hardware. The inter trochanteric fracture fragments show incomplete healing. There is now an acute fracture of the femur along the distal aspect of the TFN beti. This is a completely displaced and mildly comminuted fracture. Soft tissues: Intramuscular hematoma of the anterior thigh compartment. Moderate size. IMPRESSION: 1. Proximal right femur acute metaphyseal completely displaced and mildly comminuted fracture at the distal aspect of a TFN hardware beti. Hardware is from previous inter trochanteric fracture repair. Inter trochanteric fracture fragments without bony union at this time. 2. Left hip total arthroplasty in alignment. 3. Lower lumbar spine degenerative disease. Previous fusion L4-L5 and L4 laminectomy. Dictated and Authenticated by: Reese Bruno MD. Ordering:ADALBERTO Guzman MD
--- NOTE | 2023-08-17 21:05 | DI.VRAD_ITS ---
PROCEDURE INFORMATION: Exam: CT Right Lower Extremity Without Contrast; Thigh Exam date and time: 08/17/2023 8:41 PM Age: 58 years old Clinical indication: Pain; Thigh; Right; Prior surgery; Surgery date: <1 month; Surgery type: RT hip; Patient HX: FX; Eval for surgery TECHNIQUE: Imaging protocol: CT of the right lower extremity without contrast was performed. Exam focused on the thigh. Radiation optimization: All CT scans at this facility use at least one of these dose optimization techniques: automated exposure control; mA and/or kV adjustment per patient size (includes targeted exams where dose is matched to clinical indication); or iterative reconstruction. COMPARISON: CT LOWER EXTREMITY RT WO 07/09/2023 1:04 PM FINDINGS: Bones/joints: There is a previous right inter trochanteric fracture which was repaired with TFN hardware. The comminuted inter trochanteric fracture fragments are without osseous union at this time. There is now an acute fracture of the proximal femoral diametaphyseal region. This is an oblique fracture with mild comminution. Complete displacement of the proximal femoral component anteriorly. Fracture is at the distal aspect of the TFN beti. Femoral head is not dislocated from acetabulum. Soft tissues: Moderate size anterior thigh muscle compartment hematoma. No soft tissue gas or foreign body. IMPRESSION: Proximal femoral diametaphyseal oblique, mildly comminuted and completely displaced fracture. This is across the distal aspect of a TFN beti from a prior inter trochanteric hip fracture repair. Dictated and Authenticated by: Reese Bruno MD. Ordering:ADALBERTO Guzman MD
--- NOTE | 2023-08-17 21:23 | ANES.NERVE_ITS ---
Nerve Block Single Injection Procedure Date and Time Date Performed: 08/17/23 Procedure Start: 09:10 Location Where Procedure Performed Procedure Location: Emergency Department Reason Performed: Acute Pain Management (right femur fracture with significant pain. ) Pain Diagnosis: Thigh Pain Requesting Provider: Thomas Mason Timeout Performed Timeout Performed: Yes Monitoring Used ECG and SpO2 Sterility Sterility: Hand Hygiene, Surgical Cap, Surgical Mask, Sterile Gloves and C hlorhexidine Sedation Given During Procedure Sedation Given (Indicate Dose Given): No Sedation given Patient Mental Status Patient Mental Status: Awake Nerve Block 1st Nerve Block: Laterality: Right Block Type: Femoral Ultrasound Image Saved?: Yes Needle / Catheter Used: 100mm SonoPlex II Local Anesthetic Bolus (Indicate Dose Given): Lidocaine used for local infiltration of skin and Bupivacaine 0.5% Dose:: 20 mL Additives (Indicate Dose Given): Epinephrine to make 1:400,000 (2.5mcg/ml) Dose:: 50 mcg and Precedex Dose:: 40 mcg Ultrasound: Sterile probe cover and gel used Nerve Stimulator: Supplement to Ultrasound use and No twitch or parasthesia noted < 0.5 mA Paresthesia: None Procedure Tolerated: No Complications Procedure Outcome: Successful Procedure Comment: No contraindications to block, discussed that given the innervation of the femur and thigh that the block should help, but won't take it all away. Challenging due to pt position as she is unable to lay down or straighten out her right leg without significant pain. Performed By: Immanuel Rucker
[2023-08-17 21:28] LABS: Source Nasal/Nares
[2023-08-17 22:08] LABS: COVID-19 PCR Negative (Negative)
[2023-08-17] MEDS: Baclofen 10 MG TAB 40 MG PO (23:54)
[2023-08-17] MEDS: Melatonin 3 MG TAB 6 MG PO (23:54)
[2023-08-18] VITALS (21 sets, daily range): BP systolic 68–119; BP diastolic 48–72; PULSE 70–113; RESP 11–18; TEMP 26.4–37.8; O2SAT 94–100; BMI 26.9
--- NOTE | 2023-08-18 00:49 | W.ANESPRE ---
General Info Date of Service Date Performed: 08/18/23 Height: 5 ft Weight: 62.7 kg Body Mass Index (BMI): 26.9 Meds Allergies and Home Medications Allergies Allergy/AdvReac Type Severity Reaction Status Date / Time Sulfa (Sulfonamide Allergy Intermediate SKIN RASH Verified 08/17/23 18:38 Antibiotics) Penicillins Allergy Unknown RASH Verified 08/17/23 18:38 chlorthalidone AdvReac Severe Hyponatremi Verified 08/17/23 18:38 a codeine AdvReac Unknown NAUSEA Verified 08/17/23 18:38 Home Medication Medication Instructions Recorded Lactobacillus comb 1 cap PO DAILY 02/04/13 no.1-[id number] 300 million cell-250 mg capsule (Probiotic and Acidophilus) diphenhydramine 25 1 tab PO HS 02/04/13 mg-acetaminophen 500 mg tablet (Tylenol PM Extra Strength) pediatric multivit no.17-ferrous 2 tab PO DAILY 02/04/13 fumarate 15 mg iron chewable tablet timolol maleate (PF) 0.25 % eye 1 drp ophthalmic (eye) DAILY 02/04/13 drops in a dropperette (Timoptic Ocudose (PF)) vitamin B comp and C no.3 15 mg-10 1 cap PO DAILY 02/04/13 mg-50 mg-5 mg-300 mg capsule (B Complex Plus Vitamin C) calcium carbonate 600 mg-vitamin 1 ea PO DAILY 01/26/15 D3 5 mcg (200 unit) tablet cholecalciferol (vitamin D3) 125 5,000 unit PO DAILY 01/26/15 mcg (5,000 unit) tablet glucosamine sulfate 250 1 ea PO BID 01/26/15 mg-chondroitin sulfate A 200 mg capsule triamcinolone acetonide 55 mcg 1 spray intranasal BID 07/22/18 nasal spray aerosol (Nasacort) melatonin 3 mg tablet 6 mg PO HS 03/25/19 turmeric root extract 500 mg 500 mg PO DAILY 05/07/19 capsule magnesium 500 mg tablet 500 mg PO DAILY 04/19/22 duloxetine 60 mg capsule,delayed 60 mg PO DAILY #90 caps 09/29/22 release lisinopril 40 mg tablet 40 mg PO DAILY #90 tabs 09/29/22 omeprazole 20 mg capsule,delayed 20 mg PO DAILY #90 caps 10/17/22 release desmopressin 0.2 mg tablet 0.4 mg PO HS #180 tabs 10/26/22 baclofen 20 mg tablet 40 mg PO TID #540 tabs 12/25/22 spironolactone 50 mg tablet 50 mg PO DAILY #90 tabs 02/09/23 bupropion HCl 300 mg 24 hr tablet, 300 mg PO QAM #90 tabs 03/16/23 extended release modafinil 200 mg tablet (Provigil) 200 mg PO BID #180 tabs 03/22/23 AFO Refurbishment - new leather #1 ea 06/15/23 and adjust plastic amlodipine 5 mg tablet 5 mg PO DAILY #90 tabs 06/26/23 acetaminophen 500 mg tablet 1,000 mg PO Q8H PRN pain #90 tabs 07/13/23 aspirin 81 mg tablet,delayed 81 mg PO BID #60 tabs 07/13/23 release docusate sodium 100 mg capsule 100 mg PO BID PRN #10 caps 07/13/23 (Colace) naproxen 500 mg tablet 500 mg PO BID PRN #60 tabs 07/13/23 oxycodone 5 mg tablet 5 mg PO Q4H PRN #18 tabs 07/13/23 dalfampridine 10 mg 10 mg PO BID #180 tabs 07/16/23 tablet,extended release,12 hr (Ampyra) metoprolol succinate 50 mg 100 mg PO DAILY #90 tabs 08/01/23 tablet,extended release 24 hr Current Visit Medications: Current Medications Generic Name Dose Route Start Last Admin Trade Name Freq PRN Reason Stop Dose Admin Acetaminophen 500 mg 08/17/23 22:59 Acetaminophen 500 Mg Tab PO HS PRN PRN Baclofen 40 mg 08/18/23 08:30 Baclofen 10 Mg Tab PO TID WAYNE Bupropion HCl 300 mg 08/18/23 08:30 Bupropion-Xl 150 Mg Tabcr PO QAM WAYNE Calcium/Vitamin D 1 tab 08/19/23 08:30 Calcium 600mg/Vit D 200u Tab PO DAILY WAYNE Cholecalciferol 5,000 units 08/18/23 08:30 Cholecalciferol (Vitamin D3) 1,000 Unit Tab PO DAILY WAYNE Desmopressin Acetate 0.4 mg 08/17/23 22:00 08/17/23 23:17 Desmopressin 0.2 Mg Tab PO Not Given HS WAYNE Diphenhydramine HCl 25 mg 08/17/23 22:58 Diphenhydramine 25 Mg Cap PO HS PRN PRN Docusate Sodium 100 mg 08/17/23 20:26 Docusate Sodium 100 Mg Cap PO BID PRN Duloxetine HCl 60 mg 08/18/23 08:30 Duloxetine 30 Mg Cap PO DAILY [facility] Hydromorphone HCl 0.5 mg 08/17/23 20:35 Hydromorphone 2 Mg/Ml Syr IVP Q1H PRN Sodium Chloride 500 mls @ 0 mls/hr 08/17/23 20:39 Saline 500ml Bag IV PRN PRN As Directed Ondansetron HCl 4 mg/ Sodium 52 mls @ 200 mls/hr 08/17/23 20:39 Chloride IVPB Q6H PRN PRN IV Miscellaneous Supplies 1 each 08/17/23 20:45 Iv Access-Emergency Dept IV DIRECTED [facility] IV Miscellaneous Supplies 1 each 08/17/23 20:45 Iv Access IV DIRECTED [facility] Iron/Minerals/Multivitamins 1 tab 08/18/23 08:30 Multivitamin W/Minerals Tab PO DAILY [facility] Ketorolac Tromethamine 15 mg 08/17/23 20:35 Ketorolac 15 Mg/Ml Vial IM 08/22/23 20:34 Q6H PRN PRN Magnesium Gluconate 500 mg 08/18/23 08:30 Magnesium Gluconate 500 Mg Tab PO DAILY [facility] Melatonin 6 mg 08/17/23 22:00 08/17/23 23:54 Melatonin 3 Mg Tab PO 6 mg HS [facility] Administration Metoprolol Tartrate 25 mg 08/18/23 08:30 Metoprolol 25 Mg Tab PO BID [facility] Modafinil 200 mg 08/18/23 08:30 Modafinil 200 Mg Tab PO BID [facility] Morphine Sulfate 2 mg 08/17/23 20:40 Morphine 2 Mg/Ml Syr IVP Q1H PRN PRN Non-Formulary Medication 10 mg 08/18/23 08:30 Dalfampridine [Ampyra] PO BID [facility] Non-Formulary Medication 1 drp 08/18/23 08:30 Timolol Maleate (Pf) [Timoptic Ocudose (Pf)] OP DAILY [facility] Non-Formulary Medication 1 spray 08/18/23 08:30 Triamcinolone Acetonide [Nasacort] NS BID [facility] Omeprazole 20 mg 08/18/23 08:30 Omeprazole 20 Mg Capcr PO DAILY [facility] Sodium Chloride 0 ml 08/17/23 20:40 Normal Saline Flush 10 Ml Syr IVP PRN PRN Sodium Chloride 0 ml 08/17/23 20:39 Normal Saline Flush 10 Ml Syr IVP PRN PRN Spironolactone 50 mg 08/18/23 08:30 Spironolactone 50 Mg Tab PO DAILY [facility] PFSH Active Problems Active Problems: Problem Status Onset Code Closed right femoral fracture S72.91XA Closed comminuted intertrochanteric fracture of right femur ~06/2023 S72.141A Foot pain M79.673 Arthritis M19.90 Pes planus M21.40 Anemia D64.9 Essential hypertension 09/02/13 I10 Foot drop, left 05/17/15 M21.372 Multiple sclerosis 1991 G35 Neurogenic bladder 01/13/16 N31.9 Spasticity 05/17/15 R25.2 Synovial cyst of popliteal space M71.20 Urge incontinence of urine 08/08/12 N39.41 Memory loss R41.3 Depression F32.9 Fatigue R53.83 Acquired pes planus of right foot M21.41 Medical History Medical History Closed subcapital fracture of left femur S/P L BELEN --DOS 03/15/22 GERD (gastroesophageal reflux disease) Left carpal tunnel syndrome managed non-surgically Murmur, cardiac Optic neuritis Spinal stenosis of lumbar region with radiculopathy Surgical History Surgical History S/P left knee arthroscopy partial medial meniscectomy, L S/P ovarian cystectomy S/P tonsillectomy and adenoidectomy Status post bunionectomy Status post lumbar laminectomy (~07/2022) Status post myringotomy with insertion of tube 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 Tobacco Smoking/Tobacco Use Status: Former Tobacco Use Passive smoking exposure: Yes Second hand exposure: Yes Alcohol Alcohol Intake: current Alcohol intake frequency: a few times a month Alcohol type: beer, wine and hard liquor Substance Use Substance use: Daily Substance use type: marijuana Vital Signs and Lab Results Vital Signs Most Recent Vital Signs in EMR: Most Recent Vital Signs Temp Pulse Resp BP Pulse Ox 36.8 C 71 16 124/76 98 08/17/23 22:56 08/17/23 22:56 08/17/23 22:56 08/17/23 22:56 08/17/23 22:56 Lab Results 08/17/23 18:45 08/17/23 18:45 Blood Type / Crossmatch: No Data to Display Complete Blood Count: White Blood Count 12.09 10^3/uL (4.4-10.8) H 08/17/23 18:45 Red Blood Count 3.44 10^6/uL (3.93-5.22) L 08/17/23 18:45 Hemoglobin 10.9 g/dL (11.2-15.7) L 08/17/23 18:45 Hematocrit 34.0 % (36.0-46.0) L 08/17/23 18:45 Platelet Count 618 10^3/uL (130-400) H 08/17/23 18:45 Complete Metabolic Panel: Sodium 131 mmol/L (136-145) L 08/17/23 18:45 Potassium 3.8 mmol/L (3.5-5.1) 08/17/23 18:45 Chloride 94 mmol/L (98-107) L 08/17/23 18:45 Carbon Dioxide 29.0 mmol/L (21.0-32.0) 08/17/23 18:45 BUN 13 mg/dL (7-18) 08/17/23 18:45 Creatinine 0.6 mg/dL (0.55-1.02) 08/17/23 18:45 Est GFR (CKD-EPI 2020) 104.63 (mL/min/1.73m2) 08/17/23 18:45 Calcium 9.3 mg/dL (8.5-10.1) 08/17/23 18:45 Albumin 3.8 g/dL (3.4-5.0) 08/17/23 18:45 Glucose 110 mg/dL (74-106) H 08/17/23 18:45 Liver Function Panel: Alanine Aminotransferase (ALT/SGPT) 17 U/L (14-59) 08/17/23 18:45 Aspartate Amino Transf (AST/SGOT) 21 U/L (15-37) 08/17/23 18:45 Coagulation Panel: No Data to Display Cardiac Panel: No Data to Display Arterial Blood Gas: No Data to Display Venous Blood Gas: No Data to Display Pancreas Panel: No Data to Display Thyroid Panel: No Data to Display Infectious Disease: Coronavirus (COVID-19)(PCR) Negative (Negative) 08/17/23 21:25 Coronavirus 2019 Source Nasal/Nares 08/17/23 21:25 Blood Cultures: No Data to Display Toxicology Panel: No Data to Display Imaging and Studies Imaging and Studies Study information below may be from another EMR and interpreted by another provider. Please see original notes in EMR for more complete details. EKG Summary: DATE/TIME OF SERVICE: 06/30/22814 : 1965PERFORMING LOCATION: [facility] APPROVED REPORT Exam: Resting ECG Reason for Exam: pre-op Patient Location: O HR:67 bpm ECG Measurements Heart Rate 67 AXIS MS 176 P 49 QRSd 85 QRS 10 QT 432 T26 QTc 456 Conclusion Sinus rhythm...normal P axis, V-rate 50- 99 Probable left atrial enlargement...P >50mS, <-0.10mV V1 Echocardiogram Summary: Conclusion Normal left ventricular wall thickness and chamber size. Estimated ejection fraction is 55 to 60%. Wall motion is normal Normal right ventricular size and systolic function Both atria are normal in size Normal mitral leaflets with mild systolic prolapse. There is mild to moderate eccentric mitral regurgitation There are no additional structural or hemodynamically significant valvular abnormalities Estimated right ventricular systolic pressure is 23 mmHg MRI Summary: 07/06/2022:IMPRESSION: Multilevel abnormalities as described above with multilevel central canal spinal stenosis, severe at L4-5, and multilevel neural foraminal stenosis. No gross interval change from prior examination of August 2021. Anesthesia Assessment and Plan Anesthesia History Personal History: No History of Anesthesia Complications Family History: No Family History of Anesthesia Complications Exercise Tolerance Exercise Tolerance: Metabolic Equivalents>4 Cardiac & Pulmonary Exam Cardiac Exam: Normal S1/S2 Heart Sounds Pulmonary Exam: Clear Bilateral Breath Sounds Implantable Cardiac Device Does patient have a Pacemaker or an ICD?: No Airway Exam Known Difficult Airway: No Mallampati Class: 1 Mouth Opening: Normal (> 3cm) Thyromental Distance: Greater than 3 cm Neck Range of Motion: Full ROM Neck Circumference: Normal Teeth Condition: Normal Dentition ASA Classification ASA Score: ASA 3 Emergency Case?: Yes NPO Status NPO Status: NPO Clears >2 hours, Solids >8 hours Anesthesia Plan Resuscitation Status: Full Code Anesthesia Technique: General Anesthesia Airway Planned: Endotracheal Tube Monitors Used: Standard Monitors Preoperative Comments:: 58 yo female for femur fracture. Sig PMHx: HTN, GERD, MS, spinal stenosis lumbar Previous Anes: - hip fracture, mac 3 grade 1, required phenyl gtt. - hip fracture, mac 3 grade 1. - colo, prop, natural airway, no issues.
--- NOTE | 2023-08-18 06:07 | OCONE_ITS ---
Date of service: 08/18/23 History of Present Illness History of Present Illness Chief Complaint: Right Femur Fracture Narrative: Steffi is a 58-year-old female who I know very well. Unfortunately she presented to the hospital at the end of June with a subacute, displaced fracture of the intertrochanteric region of the right femur. She was on vacation and noticed increasing pain and bruising and difficulty with ambulation and was diagnosed with this fracture when she returned from her trip. There is no significant trauma. The fracture was notably shortened and contracted which made fixation challenging and there is also concern about the health of the bone within this region although pathology results are negative for any invasive tissue disease. She was able to be discharged to home and was making progress at home albeit slowly. Her wounds healed appropriately and she was able to place weight onto the right leg although minimally. Yesterday evening she was in the bathroom and while trying to get her pants back on she tripped and fell directly onto the right side with immediate pain and deformity. She was brought to the emergency department and diagnosed with a fracture of the right femur starting distal to the previous TFN a hardware and extending proximally all along the medial aspect of the femur. There is obvious shortening. She has chronic swelling about the right hip. She denies any preceding chest pain or shortness of breath. No recent fever or chills. She denies numbness or tingling. Consults Consult date: 08/17/23 Requesting physician: Thomas Mason Consult Reason Comminuted right femur fracture around previous femur hardware Assessment and Plan Assessment and plan (1) Closed right femoral fracture: Status: Acute Assessment and plan: Steffi is a 58-year-old female who has multiple medical comorbidities, dominated mostly by multiple sclerosis. Seen for previous musculoskeletal issues including a fracture of the right femur about 6 weeks ago which was without trauma and subacute in nature. Fixation for that fracture was quite challenging and she seemed to make the progress until she fell and now has a resultant frac ture of the right femur around the previous intramedullary nail extending both proximally and distally. This is a very challenging problem. Given the displaced nature of the fracture does need to be fixed. I would recommend at this point that we remove the short nail and replaced with a longer nail after doing a open reduction of the fracture. I am quite concerned about her potential for bony healing. There is little healing seen on the CT scan thus far and significant comminution, although she was clinically making some improvements from the previous fracture. At the previous surgery is concerned about the quality of her bone I did send a sample of bone to pathology which showed levels of bone necrosis and fracture but no sign of any bone marrow disease process. However, we have to assume that her osteoporosis is quite severe although I do not know if we have any recent testing. I will discuss her case with the hospitalist team as well given her multiple medical comorbidities and the increase in her platelet count although she always seems to run high. She has notable deformity of the right leg and this should be fixed soon as possible. I reviewed all this with Steffi and she does want to have it fixed. I reviewed the risk of the procedure to include bleeding, infection, pain, stiffness, malrotation, angulation, shortening, damage to nerves or vessels, damage to muscle and tendons, blood clot, need for repeat procedures, avascular necrosis. Despite these risk, she elects to proceed. Review of Systems All systems reviewed & are unremarkable except as noted in HPI and below PFSH All Active Problems Closed right femoral fracture (Acute) Closed comminuted intertrochanteric fracture of right femur (Acute ~06/2023) Open reduction and intramedullary fixation DOS: 07/10/2023 Foot pain (Acute) Arthritis (Acute) Pes planus (Acute) Anemia (Acute) Essential hypertension (Chronic 09/02/13) Foot drop, left (Acute 05/17/15) Multiple sclerosis (Chronic 1991) Neurogenic bladder (Acute 01/13/16) Spasticity (Chronic 05/17/15) Synovial cyst of popliteal space (Acute) Urge incontinence of urine (Acute 08/08/12) Memory loss (Chronic) Depression (Chronic) Fatigue (Acute) Acquired pes planus of right foot (Chronic) chronic pain in foot; possible surgery Medical History Closed subcapital fracture of left femur S/P L BELEN --DOS 03/15/22 GERD (gastroesophageal reflux disease) Left carpal tunnel syndrome managed non-surgically Murmur, cardiac Optic neuritis Spinal stenosis of lumbar region with radiculopathy Surgical History S/P left knee arthroscopy partial medial meniscectomy, L S/P ovarian cystectomy S/P tonsillectomy and adenoidectomy Status post bunionectomy Status post lumbar laminectomy (~07/2022) Status post myringotomy with insertion of tube 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 Social History Smoking/Tobacco Use Status: Former Tobacco Use tobacco type: cigarettes Quit Date: 11/12/07 Tobacco: How many years used: 12 Second Hand Exposure: Yes Smoking risk assessment performed?: Yes Alcohol Intake: current Alcohol Intake frequency: a few times a month Alcohol type: beer, wine and hard liquor Drug use: Daily Substance use type: marijuana Caregiver/Support person: No Household members: spouse Housing: other Number of Children: 1 Communication Needs: None Do you need help understanding health information?: Never current occupation: [employer] 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 Pets and animals: Yes Pets and animals: cat(s) Sexually active: Yes Do you think of yourself as: straight/heterosexual Current gender identity: female What is your relationship status?: How often do you talk on the phone with friends or family?: never How often do you get together with friends or relatives?: never How often do you attend scientology or jewish services?: decline to answer Do you belong to any clubs or organized social groups?: no Panel score (0-1 are the most socially isolated patients): 1 What type of physical activity do you participate in: bicycling Duration: 15-30 minutes/day Frequency: 3-4 times per week Veda/Restorationist: None Special veda needs: No Seatbelt use: always Helmet use: Yes Helmet use: sometimes Drive intox or ride w/intox sanitation 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 Exam Const General: cooperative, healthy appearing and no acute distress Nutritional Appearance: average body habitus Orientation: alert, awake and oriented x3 Extrem Other: RLE with obvious shortening and external rotation and flexion with fullness and swelling about the mid thigh as well as the chronic deformity of her proximal right hip. There is swelling all the way down to the patella, mostly over the anterior lateral aspect of the right thigh. Incisions were previous surgery well-healed without signs of active infection. No overt ecchymosis. No break in the skin. No pain to palpation of the knee itself. No pain along the leg, minimal within the calf. There is a chronic pes planovalgus deformity of the right foot with large callosity over the medial aspect of the arch. Sensation intact light touch over the deep and superficial peroneal nerve and tibial nerve. Palpable DP and PT pulse. Active EHL, FHL, TA, Peroneal, GS function. Results Last Vital Signs Temp 37.1 C 08/18/23 03:05 Pulse 81 08/18/23 03:05 Resp 16 08/18/23 03:05 BP 109/72 08/18/23 03:05 Pulse Ox 96 08/18/23 03:05 Labs 08/17/23 18:45 08/17/23 18:45 Labs: Laboratory Results - last 24 hr 08/17/23 08/17/23 08/17/23 18:45 18:45 21:25 WBC 12.09 H RBC 3.44 L Hgb 10.9 L Hct 34.0 L MCV 99 H MCH 31.7 MCHC 32.1 RDW 13.9 Plt Count 618 H MPV 8.8 Immature Gran % 0.5 Neutrophils % 73.0 Lymphocytes % 14.3 Monocytes % 10.8 Eosinophils % 0.9 Basophils % 0.5 Nucleated RBC % 0.0 Absolute Neutrophils 8.83 H Absolute Lymphocytes 1.73 Absolute Monocytes 1.31 H Absolute Eosinophils 0.11 Absolute Basophils 0.06 Sodium 131 L Potassium 3.8 Chloride 94 L Carbon Dioxide 29.0 Anion Gap 8.0 BUN 13 Creatinine 0.6 Est GFR (CKD-EPI 2020) 104.63 Glucose 110 H Calcium 9.3 Total Bilirubin 0.2 AST 21 ALT 17 Alkaline Phosphatase 226 H Total Protein 7.5 Albumin 3.8 COVID-19 Source Nasal/Nares SARS-CoV-2 (PCR) Negative Imaging Imaging Studies: X-ray of the right femur and pelvis shows a fracture of the right femur around the previous intramedullary nail. This fracture is obliquely oriented at the level of the distal screw and then extends proximally along the posterior medial aspect of the femur involving the lesser trochanter which was not involved previously. CT scan of the right femur and pelvis once again shows the fracture with significant comminution along the previous intramedullary nail. The fragments from the previous fracture and fixation do not appear to show significant signs of healing although there may be some faint callus formation around the intertrochanteric region. No femoral head involvement. The helical blade seems to be well positioned within the femoral head without cut out or other complication. Large anterior thigh hematoma but no other suspicious lesions are identified.
--- NOTE | 2023-08-18 07:45 | DI.RAD_ITS ---
Exam(s) XR HIP RT IN OR EXAM: XR HIP RT IN OR CLINICAL HISTORY: RIGHT HIP FRACTURE TECHNIQUE: 2D and realtime digital imaging was performed. CONTRAST MATERIAL: Refer to procedure report. COMPARISON: CR,XR XR FEMUR RT from 08/17/2023 FINDINGS: Fluoroscopy was provided for Dr. Swan during the performance of a reduction and internal fixatio n the right femoral fracture.. Please refer to the procedure report for complete details. Ka,r=42.4 mGy IMPRESSION: RADIATION DOSE DELIVERED:
[2023-08-18] MEDS: Lactated Ringers 1,000 ML 30 ML IV ×2 (08:15→09:28)
[2023-08-18] MEDS: ceFAZolin 2 GM/50 ML BAG 100 GM (08:42)
[2023-08-18] MEDS: Tranexamic Acid 1,000 MG/10 ML VIAL 1000 MG (08:56)
--- NOTE | 2023-08-18 09:09 | INITIAL_ITS ---
Date of service: 08/18/23 Time of Service: 09:09 Care Management Initial Assmt Initial Assessment REASON FOR HOSPITALIZATION:: fracture of the right femur distal to medial PREVIOUS FUNCTIONAL STATUS/SOCIAL/FAMILY SUPPORTS:: Steffi lives in [facility] her [place] in a single level home. Their only daughter lives in [place], [place]. Steffi formerly worked at [employer] but was forced into early snf due to worsening symptoms of Multiple Sclerosis. Steffi states her is a certified executive chef, so he does all of the cooking. Prior to her original fx, she ambulated household distances with a cane, and used a rollator for community ambulation. She additionally has a brace for her right foot and ankle to accommodate for instability and leg length discrepancy. Since her last surgery, she's been ambulating short distances with a walker, stating she was doing a lot better. CURRENT FUNCTIONAL STATUS:: Lying in bed, and daughter at bedside. Role and discharging planning reviewed; patient and family education provided. Per conversation, CM provided terminal system operator Medicaid application to Steffi and her family and faxed referrals for SNF to [facility], [facility] and [facility]. Steffi verbalized a preference for [facility], as it is close to her daughter. CM continues to follow. ADVANCE DIRECTIVES:: On file; [facility] Coker is appointed as HCA. Has patient been provided with info about the portal/API?: Yes Did the patient sign up for the portal?: Yes CODE STATUS:: Full Code INSURANCE COVERAGE / FINANCIAL ISSUES:: Medicare and Financial Asst 85 CURRENT HOME/COMMUNITY SERVICES/EQUIPMENT:: No home or community services. Patient has a cane, rollator, and shower bench and grab bars. She and her reside in a mobile home with a ramp leading to the front door. PRIMARY CARE PHYSICIAN:: Elizabeth Nunn MD POTENTIAL DISCHARGE NEEDS:: Follow up appointments with PCP and Dr. Swan and discharge plan of care, SNF coordination. PATIENT/FAMILY EDUCATION NEEDS:: Review of discharge instructions including medications, limitations and follow up plan of care; discuss Ask Me Three and self management. ANTICIPATED BARRIERS TO DISCHARGE:: None identified. TRANSPORTATION:: Dependent on disposition. PLAN:: PT evaluation recommends home health PT-vs-SNF; dependent on progress mobility during hospitalization. Steffi and her family agree she will likely require short term rehab upon discharge, referral provided to [facility], [facility], and [facility] for review. Transport per mobility requirements. CM will continue to follow. PFSH All Active Problems (Updated 08/19/23 @ 14:27 by Joseph Swan MD) Anemia due to blood loss (Acute) Closed right femoral fracture (Acute) Closed comminuted intertrochanteric fracture of right femur (Acute ~06/2023) Open reduction and intramedullary fixation DOS: 07/10/2023 Foot pain (Acute) Arthritis (Acute) Pes planus (Acute) Anemia (Acute) Essential hypertension (Chronic 09/02/13) Foot drop, left (Acute 05/17/15) Multiple sclerosis (Chronic 1991) Neurogenic bladder (Acute 01/13/16) Spasticity (Chronic 05/17/15) Synovial cyst of popliteal space (Acute) Urge incontinence of urine (Acute 08/08/12) Memory loss (Chronic) Depression (Chronic) Fatigue (Acute) Acquired pes planus of right foot (Chronic) chronic pain in foot; possible surgery Medical History Closed subcapital fracture of left femur S/P L BELEN --DOS 03/15/22 GERD (gastroesophageal reflux disease) Left carpal tunnel syndrome managed non-surgically Murmur, cardiac Optic neuritis Spinal stenosis of lumbar region with radiculopathy Surgical History S/P left knee arthroscopy partial medial meniscectomy, L S/P ovarian cystectomy S/P tonsillectomy and adenoidectomy Status post bunionectomy Status post lumbar laminectomy (~07/2022) Status post myringotomy with insertion of tube 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 Social History Smoking/Tobacco Use Status: Former Tobacco Use tobacco type: cigarettes Quit Date: 11/12/07 Tobacco: How many years used: 12 Second Hand Exposure: Yes Smoking risk assessment performed?: Yes Alcohol Intake: current Alcohol Intake frequency: a few times a month Alcohol type: beer, wine and hard liquor Drug use: Daily Substance use type: marijuana Caregiver/Support person: No Household members: spouse Housing: other Number of Children: 1 Communication Needs: None Do you need help understanding health information?: Never current occupation: [employer] 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 Pets and animals: Yes Pets and animals: cat(s) Sexually active: Yes Do you think of yourself as: straight/heterosexual Current gender identity: female What is your relationship status?: How often do you talk on the phone with friends or family?: never How often do you get together with friends or relatives?: never How often do you attend mandaeism or restorationist services?: decline to answer Do you belong to any clubs or organized social groups?: no Panel score (0-1 are the most socially isolated patients): 1 What type of physical activity do you participate in: bicycling Duration: 15-30 minutes/day Frequency: 3-4 times per week Veda/Advent: None Special veda needs: No Seatbelt use: always Helmet use: Yes Helmet use: sometimes Drive intox or ride w/intox salesperson driver: No Do you feel safe at home: Yes Do you feel safe in your relationship?: Yes Additional Social history: Enjoys reading, cross-stitch.
[2023-08-18 09:12] LABS: HCT 25.7 % (36.0-46.0); HGB 8.3 g/dL (11.2-15.7); MCH 31.9 pg (27.0-33.0); MCHC 32.3 % (32.0-36.0); MCV 99 fL (80-95); MPV 8.4 fL (8.0-11.0); Platelet Count 470 10^3/uL (130-400); RDW-SD 51.3 fL; WBC 5.99 10^3/uL (4.4-10.8)
--- NOTE | 2023-08-18 11:34 | W.PM.OP ---
Date of service: 08/18/23 Time of Service: 11:35 Operative Note Operative Note DATE OF PROCEDURE: 08/18/23 PRE-OP DIAGNOSIS: Right Periprosthetic Femur Fracture POST-OP DIAGNOSIS: same PROCEDURE: Right Intramedullary Fixation of Proximal Femur Fracture Removal of Previous IMN From Right Femur SURGEON: Joseph Swan MILLING MACHINE TENDER: Teresa Boogie ANESTHESIA TYPE: General LMA/ETT Refer to Anesthesia Record ESTIMATED BLOOD LOSS: 500 PATHOLOGY: none sent TOURNIQUET TIME: 0 COMPLICATIONS: None Patient was transported to: PACU Patient's condition: stable Implants: Depuy-Synthes TFNA 11mm x 340mm Indications: Steffi is a 58 year old female who presented to the Emergency Department after a fall. X-rays confirmed the diagnosis of a comminuted femoral shaft fracture distal to and surrounding the previous intramedullary nail from a subacute fracture fixation around 6 or 7 weeks ago. I reviewed the possible treatment options and given the fracture of the femur, I recommened operative fixation. I discussed the technical details of the surgery. I reviewed the risks such as bleeding, infection, pain, stiffness, malunion, nonunion, hardware prominence, hardware faiilure, malrotation, avascular necrosis, blood clot. Despite these risks, she agreed to proceed. Findings: There was a comminuted fracture of the femoral shaft. The old intervention nail was removed and direct manipulation of the fracture fragments and reduction was performed. This was held with clamps. There was a loose posterior medial piece which was difficult to reduce. The continued varus malreduction of the proximal femur did not move with manipulation and therefore was not changed. Procedure Description: Steffi was taken back to the operating room. A general anesthestic was then administered. The feet were wrapped with cast padding and Coban and then placed into the boot liners and then into the boots. Care was taken to protect the skin and make sure the heels were fully down and the boots were stable. The patient was then positioned onto the HANA table. Both legs were held in a neutral position. SCDs were applied. The patient was then slid down onto a perineal post. The arm of the operative side was then placed across the chest and secured. The nonoperative leg was scissored. A gentle reduction was then performed with traction and internal rotation and gentle external manipulation. Prophylactic antibiotics in the form of Cefazolin were administered. 1g of Tranxemic Acid was given intravenously within 30 minutes of incision. The right leg was then prepped with Chloraprep and draped in a standard fashion with shower-curtain type drape with Iodine impregnated skin protection. A timeout to confirm correct identity, side and site, procedure, allergies, anesthesia, and medical concerns was performed. The previous incision proximally was incised. This was taken down sharply through the skin and subtenons tissue. The gluteus fascia was incised. A K wire was placed into the top of the nail and the abductors were split in line with this. I was unable to place the flexible screwdriver into the top of the nail and release the setscrew. The lateral based incision was then incised and once again taken down sharply through the subcutaneous tissue down to the IT band. The IT band/sharply as well as the vastus fascia. The fibers of the vastus lateralis were split with a Garcia elevator. The helical blade was easily identifiable. The extraction device was inserted into the helical blade and the helical blade was removed without difficulty. The single 5.0 millimeter screw in the distal aspect the nail was also removed with direct visualization. The nail was removed after inserting extraction device into the top of it proximally. Once the nail was removed I then further evaluate the fracture of the midshaft. This was challenging as there was significant obliquity of the fracture. There was a primary proximal and distal fragment but there also was some comminution, especially posterior medially. I used a Garcia elevator to evaluate the fractures and also manipulate the fractures removing any early fibrous tissue and any impingement. Traction was applied the leg and direct manipulation was performed of the fracture fragments. There is 2 main fracture planes both in coronal and in a oblique sagittal plane. Once fracture fragments are slightly more mobile it became obvious that working distal was the most direct allowing to reduce in the proximal and distal fragments. So I worked on reducing the distal segment and its oblique fracture line and held this with a collinear clamp. Using the fluoroscopy in both AP and lateral is able to evaluate the more proximal segment. The posterior medial fragment was incarcerated into the femoral fracture planes. Therefore, I manipulated out of the way posterior medially and then was able to clamp the more coronal by split using a Verbruge clamp. With this now adequately reduced I looked at the proximal aspect of the femur. The initial surgery was challenging given the subacuity of the fracture and the contracted state that the fracture was healing in already. There is varus malunion at persisted. It was evaluated on the table and did not seem to move or self of the proximal femur although CT scan did show that the fracture fragments were still not united osseously. However, since these fracture fragments and the neck segment did not move separately from the remainder of the fragments I did not try to manipulate the head neck for fear of comminution and avascular necrosis. With the fracture now reduced and held with clamps I then proceeded with placement of a long nail. The starting wire was placed onto the tip through the previous hole. There is significant comminution of the greater trochanter and little integrity to the tip of the greater troch. The guidewire was advanced through the femur. This was quite challenging given the comminution. I used a series of reduction fingers and all in order to manipulate the wire down the femoral shaft. It was placed all the way into the distal aspect the femur and confirmed to be in a good position on both AP and lateral fluoroscopy. The length was measured as 340mm. A Synthes TFNA [id number] nail was selected and opened on the back table. The femur was reamed sequentially from 9mm to 12.5mm. The nail was assembled to the aiming arm on the back table and confirmed to be aligned with the triple sleeve for blade insertion. Using manual force the nail was advanced into the femur. A few light mallet blows advanced the nail to its appropriate position. The triple sleeve was inserted through the targeting arm and the skin, soft tissue, and IT band was then incised. The triple sleeve was advanced down to the lateral femur. A guidewire was advanced into the femoral head where it was noted to be centered. A lateral x-ray was used to confirm centered positioning on the lateral, slightly posterior given the better bone in this location. Happy with the length of the guidewire, this was measured. A 90mm helical blade was opened. The path of the blade was reamed with a tapered reamer to appropriate depth. The helical blade was malletted into position and confirmed to be appropriately located on fluoroscopy. The set screw was advanced fully. The targeting device was removed. AP and lateral x-rays of both the hip and the knee confirmed appropriate positioning within the femur and with good alignment of the fracture. The c-arm was moved to the knee where perfect circles were obtained for distal screw placement. The skin and deeper tissues were incised down to the femur. The drill was taken through the femur, nail, and opposite cortex. This was measured. The screw was inserted with good purchase and bite. A second screw was placed into the dynamic hole in a similar fashion. Lateral x-ray showed the screws were through the nail and then an AP image confirmed appopriate length. Final x-rays were obtained. The wounds were thoroughly irrigated. A cocktail consisting of 123mg of Ropivacaine, 0.25mg of Epinephrine, 0.04mg of Clonidine, and 15mg of Ketorolac, diluted to 50cc was injected throughout the tissues. The deep fascia of the proximal two wounds was reapproximated with a #1 Vicryl. The vastus lateralis fascia was closed with interrupted #0 Vicryl. The IT band was closed with a running #1 Vicryl. The deep tissues were closed with 0 and 2-0 Vicryl. The skin was closed with a running, subcuticular 3-0 Monocryl. Steri-Strips and Mepilex silver dressings were applied. Steffi did have a preoperative hemoglobin of 8.6. She had some hypotension during the case and received 1 unit of blood which significantly improved her vital signs and need for support. No other acute complications were identified. At the end of the case, all counts were correct. Steffi tolerated the procedure well without known complication and was taken to the PACU for recovery. Physical therapy will start post-operatively, weigh-bearing as tolerated with assistive devices. Anticoagulation will start within 12-24 hours. 3 doses of post-operative antibitiocis for prophylaxis will be ordered.
[2023-08-18] MEDS: Baclofen 10 MG TAB 40 MG PO ×2 (13:08→21:00)
--- NOTE | 2023-08-18 14:52 | PT.INIE ---
PT Notes Inpatient Physical Therapy Evaluation Date: 08/18/23 Referring Doctor: Dr. Swan PT Orders: PT CONSULT: s/p revision IMN fixation of right femur fracture Precautions: WBAT LLE Patient Profile/Admitting Diagnosis: Steffi is a 58 year old female with MS who presented to the Emergency Department 08/17/23 after a fall.? X-rays confirmed the diagnosis of a comminuted femoral shaft fracture distal to and surrounding the previous intramedullary nail from a subacute fracture fixation around 6 or 7 weeks ago.?Dr. Swan performed revision IMN fixation this morning, and PT orders were received for evaluation and treatment, with WBAT LLE. Social History/Home Situation: Patient resides with her in a single level home. Prior to her original fx, she ambulated household distances with a cane, and used a rollator for community ambulation. She additionally has a brace for her right foot and ankle to accommodate for instability and leg length discrepancy. Since her last surgery, she's been ambulating short distances with a walker, stating she was doing a lot better. Equipment Owned/DME: Rollator, cane Subjective: Steffi states that she's very tired from surgery. She can feel her right foot and move her leg. Objective: General Observation: Resting in bed with IV in RUE, Miller catheter in place. Mental Status: A&Ox3. Pleasant and cooperative throughout. Pain: well managed. 0/10 at rest. Vital Signs: Supine: 92/65 Sittin/45, HR 113. Becomes nauseous and diaphoretic. Assisted back to supine and placed in Trendelenburg position. Supine: 83/53, HR 93, asymptomatic and monitored by nursing ROM: Right Upper Extremity: WFL Left Upper Extremity: WFL Right Lower Extremity: Right foot and ankle shows pes planus position. Able to actively PF/DF within limited range. Hip motion allows 80* flexion. IR/ER not assessed. Knee motion 0-90* or greater. Left Lower Extremity: WFL Strength: Right Upper Extremity: WFL Left Upper Extremity: WFL Right Lower Extremity: Functionally unable to perform heel slide. Good quad activation with LAQ, and able to demonstrate 3/5 or greater quad strength in sitting. DF 3/5 within available range. Left Lower Extremity: WFL. Able to perform active SLR and heel slide without difficulty or discomfort. Sensation: intact distally Bed Mobility/Transfers: supine-sit: min A to LEs with HOB at 30* sit-supine: mod A sit-stand: unable due to low BP Gait: unable due to low BP Balance: Static Sitting: good Dynamic Sitting: fair Static Standing: unable to assess Dynamic Standing: unable to assess Special Tests: Mobility Limitations Standardized Measure [facility] AM-PAC 6 clicks Basic Mobility Inpatient Short Form: Raw Score: 10 CMS Score: 77% impairment Informed Consent/Education: Patient instructed in purpose of PT consult and plan of care. Instructed in ankle pumps and quad sets, to be completed hourly. Remained in bed with nursing present, call carrillo within reach, compression pumps to bilat LEs at end of session. Assessment: Patient is a 58 year old female referred to physical therapy services with the diagnosis of right femur fx s/p IMN revision, post op day 0. She originally underwent IMN fixation about 6weeks ago, and was able to discharge home with HHPT. She has chronic mobility deficits due to MS. Patient presents with clinical signs and symptoms consistent with post-op status, although unfortunately has limited tolerance to early mobilization due to orthostatic hypotension. She currently as demonstrated by the following impairment level findings: 1. decreased activity tolerance 2. decreased RLE ROM 3. orthostatic hypotension 4. chronic gait impairments Impairments are contributing to the following functional limitations: 1. unable to tolerate sitting 2. unable to transfer 3. unable to ambulate Patient is assessed as Moderate 34833 complexity based on the following: History: Patient is a 58 year old female with MS, on post-op day 0 following IMN revision for fixation of femur fx. Original fx 6 weeks ago. She has acute on chronic mobility impairments. Examination: functional limitations as noted above Presentation: evolving Decision Making: moderate complexity Goals: Goals X1 week 1. Supine-Sit independent 2. Sit-Supine independent 3. Sit-Stand close supervision at RW 4. Stand-Sit close supervision from RW 5. Bed-Chair CG x 1 with RW 6. Chair-Bed CG x 1 with RW 7. Gait 10 ft with RW CG Plan of Care/Treatment Plan: 1-2x/day, 7 days/week x 1 week. Plan of care has been reviewed with the COMMERCIAL PROPERTY MANAGER providing the service under Physical Therapy direction. Initiate Physical Therapy intervention for strengthening, bed mobility, transfers, gait, stairs, balance training, use of assistive device. DISCHARGE RECOMMENDATIONS: Home with services ( PT) vs SNF for continued rehabilitation. Will continue monitoring progress to determine discharge needs. TREATMENT CODE/TIME: 9402-9121 (91047) Mendy Cain, PT, DPT [facility] COUNT INCLUDES THE [facility] All Active Problems Closed right femoral fracture (Acute) Closed comminuted intertrochanteric fracture of right femur (Acute ~06/2023) Open reduction and intramedullary fixation DOS: 07/10/2023 Foot pain (Acute) Arthritis (Acute) Pes planus (Acute) Anemia (Acute) Essential hypertension (Chronic 09/02/13) Foot drop, left (Acute 05/17/15) Multiple sclerosis (Chronic 1991) Neurogenic bladder (Acute 01/13/16) Spasticity (Chronic 05/17/15) Synovial cyst of popliteal space (Acute) Urge incontinence of urine (Acute 08/08/12) Memory loss (Chronic) Depression (Chronic) Fatigue (Acute) Acquired pes planus of right foot (Chronic) chronic pain in foot; possible surgery Medical History Closed subcapital fracture of left femur S/P L BELEN --DOS 03/15/22 GERD (gastroesophageal reflux disease) Left carpal tunnel syndrome managed non-surgically Murmur, cardiac Optic neuritis Spinal stenosis of lumbar region with radiculopathy Surgical History S/P left knee arthroscopy partial medial meniscectomy, L S/P ovarian cystectomy S/P tonsillectomy and adenoidectomy Status post bunionectomy Status post lumbar laminectomy (~07/2022) Status post myringotomy with insertion of tube 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
[2023-08-18] MEDS: ceFAZolin 1 GM/50 ML BAG IVPB (16:12)
--- NOTE | 2023-08-18 16:48 | W.ANESPOSTOP ---
Postoperative Evaluation Date, Time and Location Date Performed: 08/18/23 Time Performed: 16:48 Patient Location: PACU Vital Signs Most Recent Imported Vital Signs: Most Recent Vital Signs Temp Pulse Resp BP Pulse Ox 36.9 C 90 14 81/54 L 95 08/18/23 16:09 08/18/23 16:09 08/18/23 16:09 08/18/23 16:09 08/18/23 16:09 Pain Score Most Recent Pain Score: Most Recent Pain Score Pain Level 2 08/18/23 14:30 Assessment Mental Status: Arousable with meaningful communication Airway and Respiratory Function: Patent airway with normal (patient baseline) respiratory exam Cardiovascular Function: Hemodynamically Stable Hydration Status: Adequately Hydrated Nausea & Vomiting: No Nausea or Vomiting Pain: Pain is tolerable per patient Peripheral Nerve Block: Patient did not receive a nerve block
[2023-08-18] MEDS: Normal Saline 500 ML IV (16:54)
[2023-08-18 17:12] LABS: HCT 24.8 % (36.0-46.0); HGB 8.2 g/dL (11.2-15.7)
[2023-08-18] MEDS: Normal Saline Flush 10 ML SYR IVP (21:06)
[2023-08-19] VITALS (10 sets, daily range): BP systolic 105–143; BP diastolic 68–85; PULSE 87–120; RESP 15–20; TEMP 36.6–38.1; O2SAT 94–97
[2023-08-19] MEDS: ceFAZolin 1 GM/50 ML BAG IVPB ×2 (00:06→07:55)
[2023-08-19] MEDS: Acetaminophen 500 MG TAB PO (02:02)
[2023-08-19 02:11] LABS: HCT 25.9 % (36.0-46.0); HGB 8.8 g/dL (11.2-15.7); MCH 31.5 pg (27.0-33.0); MCV 93 fL (80-95); Platelet Count 345 10^3/uL (130-400); RBC 2.79 10^6/uL (3.93-5.22); RDW 16.1 % (11.7-14.6); RDW-SD 55.1 fL; WBC 9.31 10^3/uL (4.4-10.8)
[2023-08-19] MEDS: MORPHine 2 MG/ML SYR IVP (02:49)
[2023-08-19] MEDS: Normal Saline Flush 10 ML SYR IVP (02:50)
[2023-08-19] MEDS: Ketorolac 15 MG/ML VIAL IM (02:50)
[2023-08-19] MEDS: Fluticasone NASAL SPRAY 16 GM BTL NS (07:56)
[2023-08-19] MEDS: Timolol 0.5% 5 ML BTL OP (07:56)
[2023-08-19] MEDS: Cholecalciferol (Vitamin D3) 1,000 UNIT TAB 5000 UNITS PO (07:57)
[2023-08-19 08:07] LABS: HCT 25.3 % (36.0-46.0); HGB 8.5 g/dL (11.2-15.7); MCH 31.1 pg (27.0-33.0); MCHC 33.6 % (32.0-36.0); MCV 93 fL (80-95); MPV 8.6 fL (8.0-11.0); Platelet Count 360 10^3/uL (130-400); RBC 2.73 10^6/uL (3.93-5.22); RDW 16.4 % (11.7-14.6); RDW-SD 55.1 fL; WBC 8.82 10^3/uL (4.4-10.8)
[2023-08-19] MEDS: Calcium 600mg/Vit D 200U TAB 1 TAB PO (08:12)
[2023-08-19] MEDS: DULoxetine 30 MG CAP 60 MG PO (08:12)
[2023-08-19] MEDS: Omeprazole 20 MG CAPCR PO (08:13)
[2023-08-19] MEDS: Multivitamin w/Minerals TAB 1 TAB PO (08:13)
[2023-08-19] MEDS: buPROPion-XL 150 MG TABCR 300 MG PO (08:13)
[2023-08-19] MEDS: Magnesium Gluconate 500 MG TAB PO (08:13)
[2023-08-19] MEDS: Metoprolol 25 MG TAB PO ×2 (08:14→21:45)
[2023-08-19] MEDS: MODAFINIL 200 MG TAB PO (08:14)
[2023-08-19] MEDS: Spironolactone 50 MG TAB PO (08:14)
[2023-08-19 08:23] LABS: Anion Gap 8.7 mmol/L (3-11); BUN 14 mg/dL (7-18); CO2 26.3 mmol/L (21.0-32.0); CREATININE 0.7 mg/dL (0.55-1.02); Calcium 8.4 mg/dL (8.5-10.1); Chloride 98 mmol/L (98-107); Estimated GFR 100.81 (mL/min/1.73m2); Glucose 114 mg/dL (74-106); Potassium 3.7 mmol/L (3.5-5.1); Sodium 133 mmol/L (136-145)
[2023-08-19] MEDS: Normal Saline 1,000 ML 1000 ML IV ×2 (10:13→17:12)
[2023-08-19] MEDS: Baclofen 10 MG TAB 40 MG PO ×3 (10:14→21:44)
--- NOTE | 2023-08-19 10:49 | PGE_ITS ---
Date of Service Date of service: 08/19/23 Time of Service: 09:15 Assessment and Plan Assessment and plan (1) Closed right femoral fracture: Status: Acute Assessment and plan: Pain is well controlled. Continue to rehydrate and follow vital signs. Seems stable. Work with PT - WBAT RLE. Dressings may stay as long as not soiled. No positioning restrictions. IS for pulm toilet. Resume home meds. Start Lovenox. (2) Anemia due to blood loss: Status: Acute Assessment and plan: Continue to follow Hgb. If symptomatic, may consider repeat unit of PRBC, but stable at this time. Subjective Subjective Interval history since last seen: Steffi reports to be doing well. She is feeling better than yesterday with good pain control. She received another unit of PRBC due to symptomatic anemia. Her blood presure and HR is trending better. Labs show stable Hgb at 8.4. She reports good pain control. She did have some right ankle pain yesterday but this is feeling better. No CP/SOB. Exam Narrative Exam Narrative: Laying in the hospital bed. NAD. AAOx3 RLE dressings c/d/i. Thigh is quite swollen yet compressible. No signficant ecchymosis. No significant pain with ER/IR of the right leg. +ADF/APF/EHL/FHL. SILT DP/SP/Tib. CR < 3 sec. Objective Last Vital Signs Temp 37.7 C H 08/19/23 07:21 Pulse 120 H 08/19/23 07:21 Resp 18 08/19/23 07:21 BP 107/77 08/19/23 07:21 Pulse Ox 96 08/19/23 07:21 Laboratory Results - last 24 hr 08/18/23 08/18/23 08/18/23 09:07 16:57 18:00 WBC RBC Hgb 8.2 L Cancelled Hct 24.8 L Cancelled MCV MCH MCHC RDW Plt Count MPV Sodium Potassium Chloride Carbon Dioxide Anion Gap BUN Creatinine Est GFR (CKD-EPI 2020) Glucose Calcium Patient ABO/Rh O Positive Antibody Screen NEGATIVE Crossmatch See Detail 08/19/23 08/19/23 08/19/23 02:05 07:05 07:05 WBC 9.31 8.82 RBC 2.79 L 2.73 L Hgb 8.8 L 8.5 L Hct 25.9 L 25.3 L MCV 93 D 93 MCH 31.5 31.1 MCHC 34.0 33.6 RDW 16.1 H 16.4 H Plt Count 345 360 MPV 8.0 8.6 Sodium 133 L Potassium 3.7 Chloride 98 Carbon Dioxide 26.3 Anion Gap 8.7 BUN 14 Creatinine 0.7 Est GFR (CKD-EPI 2020) 100.81 Glucose 114 H Calcium 8.4 L Patient ABO/Rh Antibody Screen Crossmatch PAWSS Have you Been Recently Intoxicated or Drunk Within the Last 30 days?: No Have you Ever Experienced Previous Episodes of Alcohol Withdrawal?: No Have you ever Experienced Withdrawal Seizures?: No Have you ever Experienced Delirium Tremens(DT)s?: No Have you ever undergone Alcohol Rehabilitation Treatment (i.e, inpt ot outpatient treatment programs)?: No Have you ever Experienced Blackouts?: No Have you ever Combined Alcohol with other Downers within the last 90 days?: No Have you ever Combined Alcohol with any other Substance of Abuse during the last 90 days?: No Positive Blood Alcohol level on Presentation? [PCS.BAL]: No Evidence of Increased Autonomic Activity (i.e. HR>120, tremor, sweating, agitation, nausea)?: No Result: 0 Time Spent with Patient Time Spent with Patient: 25-34 minutes Time was spent: obtaining and/or reviewing separately otained hiistory, ordering medications,tests, procedures, indepentently interpreting results and co unseling the patient
--- NOTE | 2023-08-19 12:19 | PT.INTREAT ---
Date of service: 08/19/23 Time of Service: 10:30 PT Notes Visit Reasons: Femur Fracture Inpatient Physical Therapy Treatment Note [facility] Date: 08/19/2023 PRECAUTIONS: Standard, WBAT LE SUBJECTIVE: Upon arrival to patient's room, with patient supine in her bed, she complained of her eyes feeling like they were shaking when she attempts to focus on something. Indicated she has never experienced this before. Makes her feel unsteady. Nurse Ainsley was informed of this. Did have patient camera systems engineer place x 2 but due to complaints of feeling light headed and continued shaking sensation with her eyes held on having her sit up in recliner for lunch. Pain level was noted to be under control. OBJECTIVE: ? PAIN: Pain in left LE was not too bad today, even with standing. VITALS: ? Seated on edge of bed BP / HR prior to standing was 142/85 and HR of 87b/m ? Post standing with FWW for 2 minutes x 2 reps was 113/69 and HR of 91b/m Supine post standing 106/69 with HR of 90b/m? Therapeutic Activities ([id number]): Direct one-on-one instruction in dynamic activities to improve functional performance. ? BED MOBILITY/TRANSFERS? Rolling L/R: Able to roll to the left with verbal cueing Supine-sit: mod assist of 2? Sit-supine: mod assist of 1? Sit-stand: CGA? Stand-sit: CGA? Held on ambulation to chair due to complaints of feeling dizzy and eyes shaking. Provided skilled cues and instruction on performance and technique throughout. ? GAIT? Assistive Device: FWW ? Weight bearing: As tolerated Assist: CGA ? Able to camera systems engineer place for approximately 2 minutes x 2 at edge of bed. ? Provided skilled instruction in proper exercise performance Provided skilled manual cues to facilitate proper muscle recruitment and/or form Reviewed importance of doing hourly ankle pumps and quad sets. ASSESSMENT:?Appears frustrated with difficulty with head feeling dizzy and eyes not focusing correctly. Did fair with standing in place and good transfers from sit to stand/ stand to sit. Does struggle with bed mobility, requiring assist with leg mobility. PLAN: Continue to advance as able to tolerated. Monitor vitals as needed. TREATMENT CODE/TIME: 20525 x 1, 10:30 to 10:52 am (22 minutes)
[2023-08-19] MEDS: Acetaminophen 325 MG TAB 650 MG PO (15:36)
[2023-08-19] MEDS: Desmopressin 0.2 MG TAB 0.4 MG PO (21:43)
[2023-08-19] MEDS: Melatonin 3 MG TAB 6 MG PO (21:44)
[2023-08-20] VITALS (11 sets, daily range): BP systolic 115–149; BP diastolic 72–84; PULSE 81–110; RESP 18–20; TEMP 36.1–38; O2SAT 92–99
[2023-08-20 07:23] LABS: HCT 22.2 % (36.0-46.0); HGB 7.4 g/dL (11.2-15.7); MCH 31.1 pg (27.0-33.0); MCHC 33.3 % (32.0-36.0); MCV 93 fL (80-95); MPV 8.6 fL (8.0-11.0); Platelet Count 341 10^3/uL (130-400); RBC 2.38 10^6/uL (3.93-5.22); RDW 15.4 % (11.7-14.6); RDW-SD 52.2 fL; WBC 8.48 10^3/uL (4.4-10.8)
[2023-08-20 07:38] LABS: Anion Gap 6.9 mmol/L (3-11); BUN 7 mg/dL (7-18); CO2 25.1 mmol/L (21.0-32.0); CREATININE 0.5 mg/dL (0.55-1.02); Calcium 8.2 mg/dL (8.5-10.1); Chloride 95 mmol/L (98-107); Estimated GFR 109.33 (mL/min/1.73m2); Glucose 112 mg/dL (74-106); Potassium 3.6 mmol/L (3.5-5.1); Sodium 127 mmol/L (136-145)
[2023-08-20] MEDS: Ketorolac 15 MG/ML VIAL IM (07:47)
[2023-08-20] MEDS: Timolol 0.5% 5 ML BTL OP (07:47)
[2023-08-20] MEDS: Fluticasone NASAL SPRAY 16 GM BTL NS (07:48)
[2023-08-20] MEDS: Spironolactone 50 MG TAB PO (07:49)
[2023-08-20] MEDS: Metoprolol 25 MG TAB PO ×2 (07:49→20:16)
[2023-08-20] MEDS: Cholecalciferol (Vitamin D3) 1,000 UNIT TAB 5000 UNITS PO (07:49)
[2023-08-20] MEDS: buPROPion-XL 150 MG TABCR 300 MG PO (07:49)
[2023-08-20] MEDS: Magnesium Gluconate 500 MG TAB PO (07:50)
[2023-08-20] MEDS: DULoxetine 30 MG CAP 60 MG PO (07:50)
[2023-08-20] MEDS: Omeprazole 20 MG CAPCR PO (07:50)
[2023-08-20] MEDS: Calcium 600mg/Vit D 200U TAB 1 TAB PO (07:50)
[2023-08-20] MEDS: Acetaminophen 325 MG TAB 650 MG PO ×2 (07:51→23:52)
[2023-08-20] MEDS: MODAFINIL 200 MG TAB PO ×2 (07:51→14:52)
[2023-08-20] MEDS: Multivitamin w/Minerals TAB 1 TAB PO (07:51)
[2023-08-20] MEDS: Baclofen 10 MG TAB 40 MG PO ×3 (09:55→20:16)
[2023-08-20] MEDS: Docusate Sodium 100 MG CAP PO (09:59)
--- NOTE | 2023-08-20 10:00 | DI.RAD_ITS ---
Exam(s) XR FEMUR RT EXAM: XR FEMUR RT CLINICAL HISTORY: eval IMN fixation of R femur. TECHNIQUE: 2D digital imaging was performed. AP and lateral views. COMPARISON: CR,XR XR FEMUR RT from 08/17/2023 CR,XR XR TIB/FIB RT from 08/17/2023 XA XR HIP RT IN OR from 08/18/2023 FINDINGS: Intramedullary beti and gamma is again noted through the femur. The alignment appears grossly unchang ed compared with intraoperative images. Heterotopic calcification again noted in right hip. Postsur gical air in the soft tissues. Bladder catheter. DATA REPOSITORY: RADIATION DOSE DELIVERED:
--- NOTE | 2023-08-20 10:10 | CMPROGNOTE_ITS ---
Date of service: 08/20/23 Time of Service: 10:10 Care Management Progress Note Progress Note Text Progress Note Text: S/O: Steffi was sitting in a chair, working on a crossword puzzle with CM met with her. She is still planning to discharge to a SNF for STR prior to discharging home. She has a 3 night stay and referrals are pending at [facility], [facility] and [facility]. She denies questions of concerns. A: 58 year old female admitted to [facility] on 08/17/23 for Femur Fracture, Anemia due to blood loss. P:: PT evaluation recommends home health PT-vs-SNF; dependent on progress mobility during hospitalization. Steffi and her family agree she will likely require short term rehab upon discharge, referral provided to [facility], [facility], and [facility] for review. Transport per mobility requirements. CM will continue to follow.
--- NOTE | 2023-08-20 11:36 | DI.RAD_ITS ---
Exam(s) XR CHEST 2V PA LATERAL EXAM: XR CHEST 2V PA LATERAL CLINICAL HISTORY: decreased SpO2 TECHNIQUE: 2D digital imaging was performed. COMPARISON: CR XR CHEST 1V IN DI DEPT from 03/14/2022 FINDINGS: HEART: Normal size. Aorta: Not dilated. PULMONARY VASCULATURE: Normal. LUNGS: Clear. PLEURAL SPACE: No pleural effusion or pneumothorax. BONE:Scoliosis. IMPRESSION: No acute abnormality. DATA REPOSITORY: RADIATION DOSE DELIVERED:
--- NOTE | 2023-08-20 12:37 | INDS_ITS ---
PT Notes Visit Reasons: Femur Fracture Inpatient Physical Therapy [place] Summary Date: 08/20/23 Dates of Service: 08/18/2023 through 08/19/2023 Referring Doctor:? silvestre Swan MD PT Orders: PT CONSULT: s/p revision IMN fixation of right femur fracture Precautions: As of today, per Dr. Swan: Essential transfer only to [facility] using AD and needed assistance. Patient Profile/Admitting Diagnosis:?? Steffi is a 58 year old female with multiple sclerosis who is S/P R IMN revision on 08/18/2023 and was found to have hardware fixation issue via radiographs today. Patient is discontinued from PT as of today until further notice with potential for re-surgery/arthorplasty pending [facility] surgeon's recommendations. PMHx: All Active Problems? Closed right femoral fracture (Acute) Closed comminuted intertrochanteric fracture of right femur (Acute ~06/2023) Open reduction and intramedullary fixation DOS: 07/10/2023Foot pain (Acute) Arthritis (Acute) Pes planus (Acute) Anemia (Acute) Essential hypertension (Chronic 09/02/13) Foot drop, left (Acute 05/17/15) Multiple sclerosis (Chronic 1991) Neurogenic bladder (Acute 01/13/16) Spasticity (Chronic 05/17/15) Synovial cyst of popliteal space (Acute) Urge incontinence of urine (Acute 08/08/12) Memory loss (Chronic) Depression (Chronic) Fatigue (Acute) Acquired pes planus of right foot (Chronic) chronic pain in foot; possible surgery Medical History? Closed subcapital fracture of left femur S/P L BELEN --DOS 03/15/22 GERD (gastroesophageal reflux disease) Left carpal tunnel syndrome managed non-surgically Murmur, cardiac Optic neuritis Spinal stenosis of lumbar region with radiculopathy Surgical History? S/P left knee arthroscopy partial medial meniscectomy, L S/P ovarian cystectomy S/P tonsillectomy and adenoidectomy Status post bunionectomy Status post lumbar laminectomy (~07/2022) Status post myringotomy with insertion of tube 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 Social History/Home Situation: Patient resides with her in a single level home. Prior to her original fx, she ambulated household distances with a cane, and used a rollator for community ambulation. She additionally has a brace for her right foot and ankle to accommodate for instability and leg length discrepancy. Since her last surgery, she's been ambulating short distances with a walker, stating she was doing a lot better. Equipment Owned/DME: Rollator, cane Subjective:? NT. See most recent VIDEO GAME SCRIPT WRITER notes. Objective:? General Observation: NT. See most recent VIDEO GAME SCRIPT WRITER notes. Mental Status: NT. See most recent VIDEO GAME SCRIPT WRITER notes. Pain: NT. See most recent VIDEO GAME SCRIPT WRITER notes. Vital Signs: NT. See most recent VIDEO GAME SCRIPT WRITER notes. ROM: Right Upper Extremity: WFL Left Upper Extremity: WFL Right Lower Extremity: Right foot and ankle shows pes planus position. Able to actively PF/DF within limited range. Hip motion allows 80* flexion. IR/ER not assessed. Knee motion 0-90* or greater. Left Lower Extremity: WFL Strength: Right Upper Extremity: WFL Left Upper Extremity: WFL Right Lower Extremity: Functionally unable to perform heel slide. Good quad activation with LAQ, and able to demonstrate 3/5 or greater quad strength in sitting. DF 3/5 within available range. Left Lower Extremity: WFL. Able to perform active SLR and heel slide without difficulty or discomfort. Sensation:? intact distally Bed Mobility/Transfers: supine-sit: min A to LEs with HOB at 30* sit-supine: mod A Gait:? No ambulation per orthopod as of 08/20/2023 Balance:? Static Sitting: good Dynamic Sitting: fair Static Standing: unable to assess Dynamic Standing: unable to assess Assessment:?? Steffi is a 58 year old female with multiple sclerosis who is S/P R IMN revision on 08/18/2023 and was found to have hardware fixation issue via radiographs today. Patient is discontinued from PT as of today until further notice with potential for re-surgery/arthorplasty pending [facility] surgeon's recommendations. She currently as demonstrated by the following impairment level findings: 1. decreased activity tolerance 2. decreased RLE ROM 3. orthostatic hypotension 4. chronic gait impairments ?Impairments are contributing to the following functional limitations: 1. unable to tolerate sitting 2. unable to transfer 3. unable to ambulate per orthopod's restriction Goals: Goals X1 week 1. Supine-Sit independent NOT MET 2. Sit-Supine independent NOT MET 3. Sit-Stand close supervision at RW NOT MET 4. Stand-Sit close supervision from RW NOT MET 5. Bed-Chair CG x 1 with RW NOT MET 6. Chair-Bed CG x 1 with RW NOT MET 7. Gait 10 ft with RW CG NOT MET Plan of Care/Treatment Plan: N/A. DISCHARGE RECOMMENDATIONS: PT to re-evaluate when cleared y orthopedic surgeon. TREATMENT CODE/TIME: NC Thank you for the opportunity to participate in the care of this patient. Katharina Galvez PT, DPT, CLT [facility] [place], [place]
[2023-08-20] MEDS: Polyethylene Glycol 3350 17 GM PACKET PO (12:53)
[2023-08-20 14:12] LABS: HCT 22.7 % (36.0-46.0); HGB 7.6 g/dL (11.2-15.7)
--- NOTE | 2023-08-20 14:26 | PGE_ITS ---
Date of Service Date of service: 08/20/23 Time of Service: 12:40 Assessment and Plan Assessment and plan (1) Closed right femoral fracture: Status: Acute Assessment and plan: Steffi is status post revision intramedullary fixation for a right femur fracture. I checked a routine x-ray today after weightbearing and unfortunately this showed that the helical blade is cut out of the femoral head superolaterally. Her bone was quite soft proximal within the femur at the time of surgery, however, initial intraoperative x-rays were reassuring as was the fixation of the helical blade. Unfortunately, this is not satisfactory and likely will need arthroplasty to treat the lack of bone within the femoral head and the current cut out. Unfortunately, there is significant comminution and poor bone throughout the right femur. I was very honest with Steffi that this is a complex problem and I am not sure the best next step. Revising this by removing the helical blade and trying to reduce the proximal fragment and placed a new helical blade in a better position would be very reasonable. However, the chance of failure still quite high. I reached out to a colleague at [facility] who performs trauma surgery to get his opinion. He is also going to discuss this with his colleagues both in the trauma arena as well as arthroplasty, considering all options including proximal femoral replacement. At this point, we will modify her activities, she may transfer to the commode to the chair but no ambulation. We will stop physical therapy. I will work with colleagues at [facility] to consider the best next step, likely later this week. (2) Anemia due to blood loss: Status: Acute Assessment and plan: Steffi has anemia due to her fracture with resultant blood loss and the subsequent surgery. She has received a total of 2 units of blood and has responded appropriately. While her hemoglobin is 7.4 this morning a recheck was 7.6 this afternoon and she is asymptomatic with improving vital signs. Therefore, we will continue to watch this conservatively. However, may be necessary for future transfusion given recurrent x-ray of the right femur. I did obtain a chest x-ray today as well to evaluate for any fluid overload status but this seems to be negative without any signs of consolidation or of pleural effusion. (3) Hyponatremia: Status: Acute Assessment and plan: Steffi does have some worsening hyponatremia today. She does run relatively low from previous laboratory draws. However, this is lower than usual. It could be related to SIADH from trauma and surgery. I will start with some free water restriction and check labs in the morning. Subjective Subjective Interval history since last seen: Steffi reports that in general she feels pretty good. She is able to get to a chair. She still has pain but it feels better than it was yesterday. She did have some decreased oxygen saturation on room air this morning and has received fluid rehydration but she does not feel any chest discomfort. No shortness of breath. No chest pain. She has been able to mobilize. She was able to stand with some assist but it did take max assist x2 this morning. She continues to have swelling about the right leg. She denies any numbness or tingling about the right leg. Exam Narrative Exam Narrative: Sitting up in the chair. No acute distress. Alert and x3. Evaluation of the right lower extremity shows a clean dry and intact dressings. There is substantial amount of swelling of the right thigh. No significant ecchymosis. The thigh is compressible. She is able to demonstrate some knee extension. She has intact ankle dorsiflexion and plantarflexion as well as great toe extension and flexion. Sensation intact light touch over the femoral and sciatic nerve distributions. Objective Last Vital Signs Temp 37.0 C 08/20/23 11:48 Pulse 81 08/20/23 11:48 Resp 20 08/20/23 11:48 BP 115/74 08/20/23 11:48 Pulse Ox 96 08/20/23 11:48 Laboratory Results - last 24 hr 08/20/23 08/20/23 08/20/23 06:30 06:50 14:06 WBC 8.48 RBC 2.38 L Hgb 7.4 L 7.6 L Hct 22.2 L 22.7 L MCV 93 MCH 31.1 MCHC 33.3 RDW 15.4 H Plt Count 341 MPV 8.6 Sodium 127 L Potassium 3.6 Chloride 95 L Carbon Dioxide 25.1 Anion Gap 6.9 BUN 7 Creatinine 0.5 L Est GFR (CKD-EPI 2020) 109.33 Glucose 112 H Calcium 8.2 L PAWSS Have you Been Recently Intoxicated or Drunk Within the Last 30 days?: No Have you Ever Experienced Previous Episodes of Alcohol Withdrawal?: No Have you ever Experienced Withdrawal Seizures?: No Have you ever Experienced Delirium Tremens(DT)s?: No Have you ever undergone Alcohol Rehabilitation Treatment (i.e, inpt ot outpatient treatment programs)?: No Have you ever Experienced Blackouts?: No Have you ever Combined Alcohol with other Downers within the last 90 days?: No Have you ever Combined Alcohol with any other Substance of Abuse during the last 90 days?: No Positive Blood Alcohol level on Presentation? [PCS.BAL]: No Evidence of Increased Autonomic Activity (i.e. HR>120, tremor, sweating, agitation, nausea)?: No Result: 0 Time Spent with Patient Time Spent with Patient: <25 minutes Time was spent: obtaining and/or reviewing separately otained hiistory, ordering medications,tests, procedures, indepentently interpreting results and care coordination
[2023-08-20 18:48] LABS: Sodium 125 mmol/L (136-145)
[2023-08-20] MEDS: Melatonin 3 MG TAB 6 MG PO (20:16)
[2023-08-20] MEDS: Desmopressin 0.2 MG TAB 0.4 MG PO (20:16)
[2023-08-20] MEDS: Furosemide 20 MG/2 ML VIAL IVP (21:27)
[2023-08-20] MEDS: diphenhydrAMINE 25 MG CAP PO (23:52)
[2023-08-21] VITALS (11 sets, daily range): BP systolic 106–152; BP diastolic 56–88; PULSE 73–91; RESP 16–20; TEMP 36.5–37.5; O2SAT 95–99
[2023-08-21] MEDS: Ketorolac 15 MG/ML VIAL IM (06:29)
[2023-08-21 07:09] LABS: MCH 31.4 pg (27.0-33.0); MCHC 33.3 % (32.0-36.0); MCV 94 fL (80-95); MPV 8.9 fL (8.0-11.0); Platelet Count 359 10^3/uL (130-400); RDW 14.6 % (11.7-14.6); RDW-SD 50.4 fL
[2023-08-21 07:22] LABS: Anion Gap 7.1 mmol/L (3-11); BUN 7 mg/dL (7-18); CO2 27.9 mmol/L (21.0-32.0); CREATININE 0.4 mg/dL (0.55-1.02); Calcium 8.2 mg/dL (8.5-10.1); Chloride 93 mmol/L (98-107); Estimated GFR 115.37 (mL/min/1.73m2); Glucose 103 mg/dL (74-106); HCT 20.7 % (36.0-46.0); HGB 6.9 g/dL (11.2-15.7); Potassium 3.7 mmol/L (3.5-5.1); Sodium 128 mmol/L (136-145)
[2023-08-21] MEDS: Baclofen 10 MG TAB 40 MG PO ×3 (07:45→20:08)
[2023-08-21] MEDS: Cholecalciferol (Vitamin D3) 1,000 UNIT TAB 5000 UNITS PO (07:46)
[2023-08-21] MEDS: buPROPion-XL 150 MG TABCR 300 MG PO (07:46)
[2023-08-21] MEDS: Magnesium Gluconate 500 MG TAB PO (07:47)
[2023-08-21] MEDS: Calcium 600mg/Vit D 200U TAB 1 TAB PO (07:47)
[2023-08-21] MEDS: Multivitamin w/Minerals TAB 1 TAB PO (07:47)
[2023-08-21] MEDS: MODAFINIL 200 MG TAB PO ×2 (07:48→13:49)
[2023-08-21] MEDS: Metoprolol 25 MG TAB PO ×2 (07:48→20:09)
[2023-08-21] MEDS: Omeprazole 20 MG CAPCR PO (07:49)
[2023-08-21] MEDS: DULoxetine 30 MG CAP 60 MG PO (07:49)
[2023-08-21] MEDS: Spironolactone 50 MG TAB PO (07:49)
[2023-08-21] MEDS: Fluticasone NASAL SPRAY 16 GM BTL NS (07:51)
[2023-08-21] MEDS: Timolol 0.5% 5 ML BTL OP (07:52)
[2023-08-21] MEDS: Acetaminophen 325 MG TAB 650 MG PO (08:49)
[2023-08-21] MEDS: diphenhydrAMINE 25 MG CAP PO (08:50)
--- NOTE | 2023-08-21 09:34 | CMPROGNOTE_ITS ---
Date of service: 08/21/23 Time of Service: 09:34 Care Management Progress Note Progress Note Text Progress Note Text: S/O: Steffi was sitting up in her chair when CM met with her. She stated that she is feeling good today, and has no complaints of pain. She stated that per MD, she will likely have to have another surgery, although she is not sure when. Per report, MD is consulting with [facility] to determine the best next step for Steffi. CM reviewed her plan to go to short term rehab prior to discharge, and she remains comfortable with this plan. CM will continue to follow. A: 58 year old female admitted to [facility] on 08/17/23 for Femur Fracture, Anemia due to blood loss. P:: PT evaluation recommends home health PT-vs-SNF; dependent on progress mobility during hospitalization. Steffi and her family agree she will likely require short term rehab upon discharge, referral provided to?[facility] and [facility] for review.?Transport per mobility requirements. CM will continue to follow.
--- NOTE | 2023-08-21 13:09 | TELEFU_ITS ---
Date of service: 08/21/23 Time of Service: 13:09 Nutrition Note NOTE: 58yo female admitted for close R hip fracture of femur, anemia and hyponatremia. PMH significant for HTN, MS and Depression. Inconsistent meal intake since admission although Steffi did well with lunch today. Her weight has been stable over the last year with about a 1kg gain since September 2022. Ordered for regular diet with normal consistencies. estimated nutrition needs : 1534kcals (MSJx1.2AF), 75g protein (1.2g/kg), and 1534mL fluid (1mL per required kcal) current 1L free water restriction noted to help with low Na. 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 Will monitor labs and weight, oral intake at meals for changes. Pt deemed to be at lower nutritional risk at this time. Time Spent in Nutritional Counseling and Treatment: 0
--- NOTE | 2023-08-21 13:42 | CHAPLAIN ---
Mina was sitting up in bed, working on an iPad or similar device. I introduced myself and explained my role. Jannette did not seem interested in further conversation. She said she's in touch with family ok, when I asked, and wasn't in need of anything at the moment. According to Care Management notes, Mina has MS and will be going to an SNF for PT when she is discharged. She lives in [place] with her , a head chef, and they have a daughter in [place].
--- NOTE | 2023-08-21 14:31 | PGE_ITS ---
Date of Service Date of service: 08/21/23 Time of Service: 16:21 Assessment and Plan Assessment and plan (1) Closed right femoral fracture: Status: Acute Assessment and plan: Ms. Coker is a 58-year-old female who is post op day #3 status post right IMN of proximal femur fracture and removal of previous IMN from her right femur on 08/18/23. Due to change in helical blade location case with discussed by Dr. Swan with colleagues at [facility] to determine best next step in treatment including possible changing helical blade, right BELEN vs. proximal femoral replacement. Still awaiting their recommendations. Will continue with patient's current restrictions - hold on PT, may transfer to the commode and chair but no ambulation at this time. (2) Anemia due to blood loss: Status: Acute Assessment and plan: Ms. Coker developed anemia due to her fracture with resultant blood loss and the subsequent surgery. This morning her RBC was 2.2 L and hemoglobin was 6.9 L - she received a unit of RBCs. A recheck was ordered for this afternoon. Her recheck showed improvement of RBC 3.12 L, Hgb 9.4 L and Hct 27.7 L Patient remains asymptomatic. Her BP has been ranging from normal BP this morning to 150/80 H then 106/56 L. Will continue to recheck. The remainder of her vital signs are stable. (3) Hyponatremia: Status: Acute Assessment and plan: Her sodium this morning was 128 L up from 125 L last evening. Suspected to be due to SIADH from trauma and surgery. Will continue with free water restriction and continue to follow labs tomorrow. Subjective Subjective Interval history since last seen: Ms. Coker is a 58-year-old female who is post op day #3 status post right femur fracture. She reports overall doing well - feels her discomfort is well managed. Patient did receive 1 unit of RBC this morning. Denies any current discomfort, SOB, chest discomfort, dizziness, lightheadedness or numbness. Exam Narrative Exam Narrative: Patient is comfortable while sitting in chair Const General: cooperative, comfortable and no acute distress Resp Effort & Inspection: normal respiratory effort and able to speak in complete sentences Extrem Other: Right lower extremity examination: Dressings are c/d/i. Thigh continues to be edematous but compressible. Skin is without significant erythema, calor or ecchymosis. Sensation to light touch is intact along thigh. She is able to demonstrate active ankle ROM. While talking with patient she is noted to gently extend her knee without discomfort. Objective Last Vital Signs Temp 98.4 F 08/21/23 13:23 Pulse 79 08/21/23 13:23 Resp 18 08/21/23 13:23 BP 106/56 L 08/21/23 13:23 Pulse Ox 98 08/21/23 13:23 Laboratory Results - last 24 hr 08/18/23 08/20/23 08/21/23 09:07 18:34 06:20 WBC RBC Hgb Hct MCV MCH MCHC RDW Plt Count MPV Sodium 125 L 128 L Potassium 3.7 Chloride 93 L Carbon Dioxide 27.9 Anion Gap 7.1 BUN 7 Creatinine 0.4 L Est GFR (CKD-EPI 2020) 115.37 Glucose 103 Calcium 8.2 L Patient ABO/Rh O Positive Antibody Screen NEGATIVE Crossmatch See Detail 08/21/23 06:20 WBC 6.90 RBC 2.20 L Hgb 6.9 L* Hct 20.7 L* MCV 94 MCH 31.4 MCHC 33.3 RDW 14.6 Plt Count 359 MPV 8.9 Sodium Potassium Chloride Carbon Dioxide Anion Gap BUN Creatinine Est GFR (CKD-EPI 2020) Glucose Calcium Patient ABO/Rh Antibody Screen Crossmatch PAWSS Have you Been Recently Intoxicated or Drunk Within the Last 30 days?: No Have you Ever Experienced Previous Episodes of Alcohol Withdrawal?: No Have you ever Experienced Withdrawal Seizures?: No Have you ever Experienced Delirium Tremens(DT)s?: No Have you ever undergone Alcohol Rehabilitation Treatment (i.e, inpt ot outpatient treatment programs)?: No Have you ever Experienced Blackouts?: No Have you ever Combined Alcohol with other Downers within the last 90 days?: No Have you ever Combined Alcohol with any other Substance of Abuse during the last 90 days?: No Positive Blood Alcohol level on Presentation? [PCS.BAL]: No Evidence of Increased Autonomic Activity (i.e. HR>120, tremor, sweating, agitation, nausea)?: No Result: 0 Time Spent with Patient Time Spent with Patient: 25-34 minutes Time was spent: preparing to see the patient(eg.review tests), ordering medications,tests, procedures, indepentently interpreting results and care coordination
[2023-08-21 14:55] LABS: HCT 27.7 % (36.0-46.0); HGB 9.4 g/dL (11.2-15.7); MCH 30.1 pg (27.0-33.0); MCHC 33.9 % (32.0-36.0); MCV 89 fL (80-95); MPV 8.3 fL (8.0-11.0); Platelet Count 394 10^3/uL (130-400); RBC 3.12 10^6/uL (3.93-5.22); RDW 16.2 % (11.7-14.6); WBC 8.97 10^3/uL (4.4-10.8)
[2023-08-21] MEDS: Melatonin 3 MG TAB 6 MG PO (20:08)
[2023-08-21] MEDS: Normal Saline Flush 10 ML SYR IVP (20:11)
[2023-08-21] MEDS: Polyethylene Glycol 3350 17 GM PACKET PO (20:16)
[2023-08-22] MEDS: diphenhydrAMINE 25 MG CAP PO ×2 (02:31→23:17)
[2023-08-22 03:53] VITALS: BP 137/78; PULSE 88; RESP 18; TEMP 37.4; O2SAT 94
[2023-08-22 07:10] VITALS: BP 146/83; PULSE 91; RESP 16; TEMP 37.1; O2SAT 95
[2023-08-22] MEDS: Omeprazole 20 MG CAPCR PO (07:42)
[2023-08-22] MEDS: buPROPion-XL 150 MG TABCR 300 MG PO (07:42)
[2023-08-22] MEDS: Baclofen 10 MG TAB 40 MG PO ×3 (07:43→19:27)
[2023-08-22] MEDS: Calcium 600mg/Vit D 200U TAB 1 TAB PO (07:44)
[2023-08-22] MEDS: Cholecalciferol (Vitamin D3) 1,000 UNIT TAB 5000 UNITS PO (07:45)
[2023-08-22] MEDS: DULoxetine 30 MG CAP 60 MG PO (07:45)
[2023-08-22] MEDS: Magnesium Gluconate 500 MG TAB PO (07:46)
[2023-08-22] MEDS: MODAFINIL 200 MG TAB PO ×2 (07:46→13:59)
[2023-08-22] MEDS: Metoprolol 25 MG TAB PO ×2 (07:46→19:27)
[2023-08-22] MEDS: Multivitamin w/Minerals TAB 1 TAB PO (07:46)
[2023-08-22] MEDS: Timolol 0.5% 5 ML BTL OP (07:47)
[2023-08-22] MEDS: Spironolactone 50 MG TAB PO (07:47)
[2023-08-22] MEDS: Fluticasone NASAL SPRAY 16 GM BTL NS (07:48)
[2023-08-22] MEDS: Normal Saline Flush 10 ML SYR IVP (07:49)
[2023-08-22] MEDS: Polyethylene Glycol 3350 17 GM PACKET PO (07:59)
[2023-08-22 11:10] VITALS: BP 129/81; PULSE 91; RESP 20; TEMP 37.4; O2SAT 95
[2023-08-22 12:04] LABS: HCT 29.7 % (36.0-46.0); HGB 10.1 g/dL (11.2-15.7)
[2023-08-22 12:15] LABS: Anion Gap 8.4 mmol/L (3-11); BUN 9 mg/dL (7-18); CO2 27.6 mmol/L (21.0-32.0); CREATININE 0.6 mg/dL (0.55-1.02); Chloride 96 mmol/L (98-107); Estimated GFR 104.63 (mL/min/1.73m2); Glucose 133 mg/dL (74-106); Potassium 4.2 mmol/L (3.5-5.1); Sodium 132 mmol/L (136-145)
--- NOTE | 2023-08-22 14:45 | PDOC.CMPRO ---
Date of service: 08/22/23 Time of Service: 14:45 Care Management Progress Note Progress Note Text Progress Note Text: S/O: Per Dr. Swan, Steffi will require down and back to [facility] for same day surgery, scheduled for 08/29/23@1000 (arrival 4W). Steffi remains pleasant in interaction and agreeable to treatment plan. CM will continue to follow. A: 58 year old female admitted to [facility] on 08/17/23 for Femur Fracture, Anemia due to blood loss. P:: Discharge planning on hold until surgery is completed; planned for 08/29/23. Steffi and her family agree she will likely require short term rehab upon discharge, referral provided to?[facility] and [facility] for review.?Transport per mobility requirements. CM will continue to follow.
[2023-08-22 15:02] VITALS: BP 130/79; PULSE 84; RESP 18; TEMP 37.2; O2SAT 96
--- NOTE | 2023-08-22 17:11 | W.PM.PROGNOT ---
Date of Service Date of service: 08/22/23 Time of Service: 14:00 Assessment and Plan Assessment and plan (1) Anemia due to blood loss: Status: Acute Assessment and plan: Continue to follow Hgb and symptoms. (2) Hyponatremia: Status: Acute Assessment and plan: D/C fluid restriction. Continue to hold Desmopressin. Follow with labs. (3) Closed right femoral fracture: Status: Acute Assessment and plan: Pain is controlled however, repeat x-rays demonstrate failure of hte proximal femur with cut-out of the helical blade hardware which is penetrating the femoral head and resting in the hip joint. There is significant comminution and unfortunately, ambulation should not be pursued given this failure of the hardware. I have reached out ot [facility] to discuss and they recommend holding ambulation and would recommend complex reconstruction/fixation. She needs acute inolvement to assist with mobilization and soft tissue care. Planning on surgery at [facility] [place] next week. Qualifiers: Encounter type: sequela Femur location: unspecified portion of femur Fracture morphology: other fracture Qualified Code(s): S72.8X1S - Other fracture of right femur, sequela (4) Spasticity: Status: Chronic Assessment and plan: Steffi is having increased spasticity. She is on max dose of Baclofen and usually use Marijuana to assist with spasms at home. I will try Methocarbamol to see if that helps. Subjective Subjective Interval history since last seen: Steffi has been doing well but is having more cramps today than usual. She is on a max dose of Baclofen but is very uncomfortable from the spasms. No new symptoms. No chest pain or SOB. Exam Narrative Exam Narrative: Sitting up in the chair. NAD. RLE with significant swelling. No ecchymosis. No sign of infectin. Dressings c/d/i. Shortened and internally rotated. SILT DP/SP/Tib. Objective Last Vital Signs Temp 37.2 C 08/22/23 15:02 Pulse 84 08/22/23 15:02 Resp 18 08/22/23 15:02 BP 130/79 08/22/23 15:02 Pulse Ox 96 08/22/23 15:02 Laboratory Results - last 24 hr 08/22/23 08/22/23 11:50 11:50 Hgb 10.1 L Hct 29.7 L Sodium 132 L Potassium 4.2 Chloride 96 L Carbon Dioxide 27.6 Anion Gap 8.4 BUN 9 Creatinine 0.6 Est GFR (CKD-EPI 2020) 104.63 Glucose 133 H Calcium 9.0 PAWSS Have you Been Recently Intoxicated or Drunk Within the Last 30 days?: No Have you Ever Experienced Previous Episodes of Alcohol Withdrawal?: No Have you ever Experienced Withdrawal Seizures?: No Have you ever Experienced Delirium Tremens(DT)s?: No Have you ever undergone Alcohol Rehabilitation Treatment (i.e, inpt ot outpatient treatment programs)?: No Have you ever Experienced Blackouts?: No Have you ever Combined Alcohol with other Downers within the last 90 days?: No Have you ever Combined Alcohol with any other Substance of Abuse during the last 90 days?: No Positive Blood Alcohol level on Presentation? [PCS.BAL]: No Evidence of Increased Autonomic Activity (i.e. HR>120, tremor, sweating, agitation, nausea)?: No Result: 0 Time Spent with Patient Time Spent with Patient: 25-34 minutes Time was spent: obtaining and/or reviewing separately otained hiistory, ordering medications,tests, procedures, indepentently interpreting results, counseling the patient and care coordination
[2023-08-22] MEDS: Methocarbamol 500 MG TAB 1000 MG PO (19:28)
[2023-08-22 19:29] VITALS: BP 147/87; PULSE 96; RESP 16; TEMP 37.6; O2SAT 96
[2023-08-22] MEDS: Melatonin 3 MG TAB 6 MG PO (19:30)
[2023-08-22 23:04] VITALS: BP 138/90; PULSE 80; RESP 18; TEMP 36.5; O2SAT 94
[2023-08-22] MEDS: Acetaminophen 325 MG TAB 650 MG PO (23:16)
[2023-08-23 03:13] VITALS: BP 108/70; PULSE 80; RESP 16; TEMP 36.4; O2SAT 94
[2023-08-23 07:30] VITALS: BP 116/72; PULSE 86; RESP 20; TEMP 36.7; O2SAT 94
[2023-08-23 07:37] LABS: ALT 63 U/L (14-59); AST 72 U/L (15-37); Albumin 2.4 g/dL (3.4-5.0); Alkaline Phosphatase 147 U/L (46-116); BUN 8 mg/dL (7-18); Bilirubin, Total 0.4 mg/dL (0.2-1.0); CREATININE 0.4 mg/dL (0.55-1.02); Calcium 8.9 mg/dL (8.5-10.1); Chloride 98 mmol/L (98-107); Estimated GFR 115.37 (mL/min/1.73m2); Glucose 111 mg/dL (74-106); Potassium 4.2 mmol/L (3.5-5.1); Sodium 133 mmol/L (136-145); Total Protein 6.3 g/dL (6.4-8.2)
[2023-08-23] MEDS: Multivitamin w/Minerals TAB 1 TAB PO (08:31)
[2023-08-23] MEDS: MODAFINIL 200 MG TAB PO ×2 (08:31→12:51)
[2023-08-23] MEDS: DULoxetine 30 MG CAP 60 MG PO (08:31)
[2023-08-23] MEDS: Metoprolol 25 MG TAB PO ×2 (08:32→21:00)
[2023-08-23] MEDS: Cholecalciferol (Vitamin D3) 1,000 UNIT TAB 5000 UNITS PO (08:32)
[2023-08-23] MEDS: Calcium 600mg/Vit D 200U TAB 1 TAB PO (08:32)
[2023-08-23] MEDS: buPROPion-XL 150 MG TABCR 300 MG PO (08:33)
[2023-08-23] MEDS: Omeprazole 20 MG CAPCR PO (08:34)
[2023-08-23] MEDS: Magnesium Gluconate 500 MG TAB PO (08:34)
[2023-08-23] MEDS: Normal Saline Flush 10 ML SYR IVP (08:35)
[2023-08-23] MEDS: Methocarbamol 500 MG TAB 1000 MG PO (08:35)
[2023-08-23] MEDS: Timolol 0.5% 5 ML BTL OP (08:36)
[2023-08-23] MEDS: Fluticasone NASAL SPRAY 16 GM BTL NS (08:36)
[2023-08-23] MEDS: Polyethylene Glycol 3350 17 GM PACKET PO (08:40)
[2023-08-23] MEDS: Baclofen 10 MG TAB 40 MG PO ×3 (08:40→21:01)
[2023-08-23] MEDS: Spironolactone 50 MG TAB PO (08:40)
[2023-08-23 08:45] LABS: HCT 30.4 % (36.0-46.0); HGB 9.9 g/dL (11.2-15.7); MCH 29.8 pg (27.0-33.0); MCHC 32.6 % (32.0-36.0); MCV 92 fL (80-95); MPV 8.2 fL (8.0-11.0); Platelet Count 552 10^3/uL (130-400); RBC 3.32 10^6/uL (3.93-5.22); RDW 15.9 % (11.7-14.6); RDW-SD 53.3 fL; WBC 8.08 10^3/uL (4.4-10.8)
--- NOTE | 2023-08-23 11:55 | W.PM.PROGNOT ---
Date of Service Date of service: 08/23/23 Time of Service: 09:30 Assessment and Plan Assessment and plan (1) Anemia due to blood loss: Status: Acute Assessment and plan: Continue to follow Hgb and symptoms. (2) Hyponatremia: Status: Acute Assessment and plan: D/C fluid restriction. Continue to hold Desmopressin. Follow with labs. (3) Closed right femoral fracture: Status: Acute Assessment and plan: Pain is controlled however, repeat x-rays demonstrate failure of hte proximal femur with cut-out of the helical blade hardware which is penetrating the femoral head and resting in the hip joint. There is significant comminution and unfortunately, ambulation should not be pursued given this failure of the hardware. I have reached out ot [facility] [place] and they recommend holding ambulation and would recommend complex reconstruction/fixation - tentatively scheduled for 08/29. She needs acute inolvement to assist with mobilization and soft tissue care. Transfers only to chair or bedside commode. Qualifiers: Encounter type: sequela Femur location: unspecified portion of femur Fracture morphology: other fracture Qualified Code(s): S72.8X1S - Other fracture of right femur, sequela (4) Spasticity: Status: Chronic Assessment and plan: Steffi is having increased spasticity. She is on max dose of Baclofen and usually use Marijuana to assist with spasms at home. Methocarbamol was not that helpful so I will switch to Cyclobenzaprine. (5) Hypoalbuminemia: Status: Acute Assessment and plan: Poor nutritionaly intake s/p surgery. Protein labs were low. I will initiate some protein supplementation. (6) Neurogenic bladder: Status: Acute Assessment and plan: Steffi has difficulty wiht urinary frequency at baseline. Given her mobility limitations and the chronic urinary issues, we will continue with the catheter. Subjective Subjective Interval history since last seen: Steffi reports no significant change. She is not sure if the Methocarbamol was helpful. She denies CP/SOB. She feels like she is having more discomfort in the right thigh. No issues with the wounds. Exam Narrative Exam Narrative: Sitting up in the bed. NAD. AAOx3. RLE dressing c/d/i. Swelling seems to be less firm as previous. Some induration posteriorly. No signs of infection. No drainage. +SILT DP/SP/Tib. +ADF/APF/EHL/FHL. Objective Last Vital Signs Temp 36.7 C 08/23/23 07:30 Pulse 86 08/23/23 07:30 Resp 20 08/23/23 07:30 BP 116/72 08/23/23 07:30 Pulse Ox 94 08/23/23 07:30 Laboratory Results - last 24 hr 08/22/23 08/23/23 11:50 06:40 WBC 8.08 RBC 3.32 L Hgb 10.1 L 9.9 L Hct 29.7 L 30.4 L MCV 92 MCH 29.8 MCHC 32.6 RDW 15.9 H Plt Count 552 H MPV 8.2 Sodium 132 L 133 L Potassium 4.2 4.2 Chloride 96 L 98 Carbon Dioxide 27.6 29.0 Anion Gap 8.4 6.0 BUN 9 8 Creatinine 0.6 0.4 L Est GFR (CKD-EPI 2020) 104.63 115.37 Glucose 133 H 111 H Calcium 9.0 8.9 Total Bilirubin 0.4 AST 72 H ALT 63 H Alkaline Phosphatase 147 H Total Protein 6.3 L Albumin 2.4 L PAWSS Have you Been Recently Intoxicated or Drunk Within the Last 30 days?: No Have you Ever Experienced Previous Episodes of Alcohol Withdrawal?: No Have you ever Experienced Withdrawal Seizures?: No Have you ever Experienced Delirium Tremens(DT)s?: No Have you ever undergone Alcohol Rehabilitation Treatment (i.e, inpt ot outpatient treatment programs)?: No Have you ever Experienced Blackouts?: No Have you ever Combined Alcohol with other Downers within the last 90 days?: No Have you ever Combined Alcohol with any other Substance of Abuse during the last 90 days?: No Positive Blood Alcohol level on Presentation? [PCS.BAL]: No Evidence of Increased Autonomic Activity (i.e. HR>120, tremor, sweating, agitation, nausea)?: No Result: 0 Time Spent with Patient Time Spent with Patient: <25 minutes Time was spent: obtaining and/or reviewing separately otained hiistory, ordering medications,tests, procedures, counseling the patient and care coordination
[2023-08-23] MEDS: Cyclobenzaprine 10 MG TAB 5 MG PO ×2 (12:56→21:12)
[2023-08-23] MEDS: HYDROmorphone 2 MG/ML SYR 0.5 MG IVP (13:37)
[2023-08-23] MEDS: Protein Nutritional Supplement 16 GM 1 OUNCE PACKET PO ×2 (13:38→21:00)
--- NOTE | 2023-08-23 14:16 | CMPROGNOTE_ITS ---
Date of service: 08/23/23 Time of Service: 14:16 Care Management Progress Note Progress Note Text Progress Note Text: S/O: Per Dr. Swan, Steffi will require down and back to [facility] for same day surgery, scheduled for 08/29/23@1000 (arrival 4W). Steffi remains pleasant in interaction and agreeable to treatment plan. CM will continue to follow. A: 58 year old female admitted to [facility] on 08/17/23 for Femur Fracture, Anemia due to blood loss. P:: Discharge planning on hold until surgery is completed; planned for 08/29/23. Steffi and her family agree she will likely require short term rehab upon discharge, referral provided to?[facility], and [facility] for review. ?Transport per mobility requirements. CM will continue to follow.
[2023-08-23 15:15] VITALS: BP 107/69; PULSE 80; RESP 20; TEMP 37.2; O2SAT 95
[2023-08-23 20:06] VITALS: BP 122/79; PULSE 108; RESP 18; TEMP 37.6; O2SAT 97
[2023-08-23] MEDS: Acetaminophen 325 MG TAB 650 MG PO (21:01)
[2023-08-23] MEDS: diphenhydrAMINE 25 MG CAP PO (21:02)
[2023-08-23 22:44] VITALS: BP 113/75; PULSE 96; RESP 16; TEMP 37.9; O2SAT 93
[2023-08-24 06:21] VITALS: BP 125/75; PULSE 91; RESP 18; TEMP 37.2; O2SAT 93
[2023-08-24] MEDS: Calcium 600mg/Vit D 200U TAB 1 TAB PO (07:40)
[2023-08-24] MEDS: Protein Nutritional Supplement 16 GM 1 OUNCE PACKET PO ×3 (07:40→20:06)
[2023-08-24] MEDS: Baclofen 10 MG TAB 40 MG PO ×3 (07:41→20:06)
[2023-08-24] MEDS: Omeprazole 20 MG CAPCR PO (07:41)
[2023-08-24] MEDS: Spironolactone 50 MG TAB PO (07:41)
[2023-08-24] MEDS: Multivitamin w/Minerals TAB 1 TAB PO (07:41)
[2023-08-24] MEDS: buPROPion-XL 150 MG TABCR 300 MG PO (07:42)
[2023-08-24] MEDS: Magnesium Gluconate 500 MG TAB PO (07:42)
[2023-08-24] MEDS: Metoprolol 25 MG TAB PO ×2 (07:42→20:08)
[2023-08-24] MEDS: MODAFINIL 200 MG TAB PO ×2 (07:43→13:23)
[2023-08-24] MEDS: Cholecalciferol (Vitamin D3) 1,000 UNIT TAB 5000 UNITS PO (07:43)
[2023-08-24] MEDS: DULoxetine 30 MG CAP 60 MG PO (07:43)
[2023-08-24] MEDS: Fluticasone NASAL SPRAY 16 GM BTL NS (07:44)
[2023-08-24] MEDS: Timolol 0.5% 5 ML BTL OP (07:45)
[2023-08-24] MEDS: Polyethylene Glycol 3350 17 GM PACKET PO (07:46)
[2023-08-24] MEDS: Docusate Sodium 100 MG CAP PO (07:53)
[2023-08-24] MEDS: Cyclobenzaprine 10 MG TAB 5 MG PO ×3 (07:53→20:08)
[2023-08-24 10:50] VITALS: BP 106/67; PULSE 83; RESP 22; TEMP 37.4; O2SAT 95
--- NOTE | 2023-08-24 12:38 | PGE_ITS ---
Date of Service Date of service: 08/24/23 Time of Service: 12:38 Assessment and Plan Assessment and plan (1) Anemia due to blood loss: Status: Acute Assessment and plan: Continue to follow Hgb and symptoms. (2) Hyponatremia: Status: Acute (3) Closed right femoral fracture: Status: Acute Assessment and plan: Pain seems stable at this time. May have improved some with decreased muscle spasms. Qualifiers: Encounter type: sequela Femur location: unspecified portion of femur Fracture morphology: other fracture Qualified Code(s): S72.8X1S - Other fracture of right femur, sequela (4) Spasticity: Status: Chronic Assessment and plan: Steffi seems to have improved spasticity overnight. Continue cyclobenzaprine. (5) Hypoalbuminemia: Status: Acute Assessment and plan: Poor nutritionaly intake s/p surgery. Protein labs were low. I will initiate some protein supplementation. (6) Neurogenic bladder: Status: Acute Assessment and plan: Steffi has difficulty wiht urinary frequency at baseline. Given her mobility limitations and the chronic urinary issues, we will continue with the catheter. Subjective Subjective Interval history since last seen: Steffi states that the cyclobenzaprine does seem to have helped with the muscle s pasms overnight. She does not feel that there has been any significant change in her right hip/thigh pain. She denies CP/SOB. No issues with the wounds. Exam Narrative Exam Narrative: Sitting up in the bed. NAD. AAOx3. RLE dressing c/d/i. No signs of infection. No drainage. Objective Last Vital Signs Temp 99.3 F 08/24/23 10:50 Pulse 83 08/24/23 10:50 Resp 22 08/24/23 10:50 BP 106/67 08/24/23 10:50 Pulse Ox 95 08/24/23 10:50 PAWSS Have you Been Recently Intoxicated or Drunk Within the Last 30 days?: No Have you Ever Experienced Previous Episodes of Alcohol Withdrawal?: No Have you ever Experienced Withdrawal Seizures?: No Have you ever Experienced Delirium Tremens(DT)s?: No Have you ever undergone Alcohol Rehabilitation Treatment (i.e, inpt ot outpatient treatment programs)?: No Have you ever Experienced Blackouts?: No Have you ever Combined Alcohol with other Downers within the last 90 days?: No Have you ever Combined Alcohol with any other Substance of Abuse during the last 90 days?: No Positive Blood Alcohol level on Presentation? [PCS.BAL]: No Evidence of Increased Autonomic Activity (i.e. HR>120, tremor, sweating, agitation, nausea)?: No Result: 0 Time Spent with Patient Time Spent with Patient: <25 minutes Time was spent: preparing to see the patient(eg.review tests) and obtaining and/or reviewing separately [facility] hiistory
[2023-08-24 14:53] VITALS: BP 110/71; PULSE 94; RESP 16; TEMP 37.1; O2SAT 95
--- NOTE | 2023-08-24 15:13 | CMPROGNOTE_ITS ---
Date of service: 08/24/23 Time of Service: 15:13 Care Management Progress Note Progress Note Text Progress Note Text: S/O: Per Dr. Swan, Steffi will require down and back to [facility] for same day surgery, scheduled for 08/29/23@1000 (arrival 4W). Steffi remains pleasant in interaction and agreeable to treatment plan. CM will continue to follow. A: 58 year old female admitted to [facility] on 08/17/23 for Femur Fracture, Anemia due to blood loss. P: Steffi will require down and back to [facility] for same day surgery, scheduled for 08/29/23@1000 (arrival 4W). Discharge planning on hold until surgery is completed; planned for 08/29/23. Steffi and her family agree she will likely require short term rehab upon discharge, referral provided to?[facility], and [facility] for review.?Transport per mobility requirements. CM will continue to follow.
[2023-08-24] MEDS: Melatonin 3 MG TAB 6 MG PO (20:07)
[2023-08-24] MEDS: Acetaminophen 325 MG TAB 650 MG PO (20:08)
[2023-08-24] MEDS: diphenhydrAMINE 25 MG CAP PO (20:08)
[2023-08-24 20:11] VITALS: BP 121/78; PULSE 98; RESP 18; TEMP 36.5; O2SAT 95
--- NOTE | 2023-08-25 | DI.CT_ITS ---
Exam(s) CT LOWER EXTREMITY RT WO EXAM: CT LOWER EXTREMITY RT WO CLINICAL HISTORY: continued right hip swelling s/p failed IMN fix. TECHNIQUE: Imaging Protocol: Axial computed tomography images with coronal and sagittal reformatted images were created and reviewed. CONTRAST MATERIAL: Intravenous: Omnipaque 350 Contrast volume:structured data in ml Contrast route:IV - COMPARISON: CR,XR XR FEMUR RT from 08/17/[address] LOWER EXTREMITY RT WO from 08/17/2023 XA XR HIP RT IN OR from 08/18/2023 CR XR FEMUR RT from 08/20/2023 FINDINGS: Bones: Intramedullary beti in place in femur for fracture fixation, unchanged from prior plain films. Superior portion compression nail extends into the right hip joint space superiorly with within inde ntation into the acetabulum. No cellulitic or osteomyelitic changes are identified. No lytic or sclerotic lesions are identified. Joints: A knee joint effusion is present. Soft Tissues: Increased in size of hematoma seen lateral to the gluteus medius muscle, measuring roug hly 6 by 6 by 3.5 cm. Increased soft tissue swelling/fluid in the subcutaneous fat of the right late ral hip and femur with some air bubbles presumed related to recent surgery. Swelling of right gluteu s medius muscle likely postsurgical. Chronic posterior gluteal calcifications noted. IMPRESSION: Area of hematoma in the medial right hip measuring roughly 6 cm. Status post placement of intramedullary beti and gamma nail. The tip of the nail extends into the sup erior right hip joint space. Adjacent air bubbles and fluid, likely postsurgical. Superimposed infe ction not entirely excluded. RADIATION DOSE DELIVERED: Total DLP DATA REPOSITORY: All CT scans at this facility are submitted to the National Radiology Data Registry (NRDR) Dose Index Registry (DIR) with the [employer] (ACR). RADIATION OPTIMIZATION: All CT scans at this facility use at least one of these dose optimization te chniques: automated exposure control; mA and/or kV adjustment per patient size (includes targeted exa ms where dose is matched to clinical indication); or iterative reconstruction.
[2023-08-25] MEDS: Cyclobenzaprine 10 MG TAB 5 MG PO ×2 (05:21→13:35)
[2023-08-25] MEDS: Docusate Sodium 100 MG CAP PO ×2 (05:22→07:40)
[2023-08-25 05:58] VITALS: BP 113/79; PULSE 101; RESP 16; TEMP 36; O2SAT 95
[2023-08-25 06:30] LABS: HCT 30.4 % (36.0-46.0); HGB 9.9 g/dL (11.2-15.7); MCH 30.7 pg (27.0-33.0); MCHC 32.6 % (32.0-36.0); MCV 94 fL (80-95); MPV 8.2 fL (8.0-11.0); Platelet Count 662 10^3/uL (130-400); RBC 3.22 10^6/uL (3.93-5.22); RDW 14.9 % (11.7-14.6); RDW-SD 51.8 fL; WBC 9.71 10^3/uL (4.4-10.8)
[2023-08-25 06:56] LABS: ALT 82 U/L (14-59); AST 68 U/L (15-37); Albumin 2.6 g/dL (3.4-5.0); Alkaline Phosphatase 156 U/L (46-116); Anion Gap 6.2 mmol/L (3-11); BUN 20 mg/dL (7-18); Bilirubin, Total 0.3 mg/dL (0.2-1.0); CO2 30.8 mmol/L (21.0-32.0); CREATININE 0.5 mg/dL (0.55-1.02); Calcium 9.1 mg/dL (8.5-10.1); Chloride 97 mmol/L (98-107); Estimated GFR 109.33 (mL/min/1.73m2); Glucose 114 mg/dL (74-106); Potassium 4.2 mmol/L (3.5-5.1); Sodium 134 mmol/L (136-145); Total Protein 6.4 g/dL (6.4-8.2)
[2023-08-25 07:22] VITALS: BP 107/67; PULSE 90; RESP 17; TEMP 36.9; O2SAT 95
[2023-08-25] MEDS: Magnesium Gluconate 500 MG TAB PO (07:39)
[2023-08-25] MEDS: Acetaminophen 325 MG TAB 650 MG PO (07:39)
[2023-08-25] MEDS: Multivitamin w/Minerals TAB 1 TAB PO (07:39)
[2023-08-25] MEDS: Cholecalciferol (Vitamin D3) 1,000 UNIT TAB 5000 UNITS PO (07:39)
[2023-08-25] MEDS: Omeprazole 20 MG CAPCR PO (07:40)
[2023-08-25] MEDS: DULoxetine 30 MG CAP 60 MG PO (07:40)
[2023-08-25] MEDS: Calcium 600mg/Vit D 200U TAB 1 TAB PO (07:40)
[2023-08-25] MEDS: Metoprolol 25 MG TAB PO ×2 (07:40→19:48)
[2023-08-25] MEDS: MODAFINIL 200 MG TAB PO ×2 (07:40→13:35)
[2023-08-25] MEDS: buPROPion-XL 150 MG TABCR 300 MG PO (07:40)
[2023-08-25] MEDS: Baclofen 10 MG TAB 40 MG PO ×3 (07:40→19:48)
[2023-08-25] MEDS: Spironolactone 50 MG TAB PO (07:40)
[2023-08-25] MEDS: Enoxaparin 40 MG/0.4 ML SYR SC (07:41)
[2023-08-25] MEDS: Fluticasone NASAL SPRAY 16 GM BTL NS (07:42)
[2023-08-25] MEDS: Protein Nutritional Supplement 16 GM 1 OUNCE PACKET PO ×3 (07:42→19:49)
[2023-08-25] MEDS: Polyethylene Glycol 3350 17 GM PACKET PO (07:42)
[2023-08-25] MEDS: Timolol 0.5% 5 ML BTL OP (07:42)
[2023-08-25 12:25] LABS: Bilirubin Negative (Negative); Blood Large (Negative); Clarity Sl Cloudy (Clear); Glucose Negative (Negative); Ketones Trace mg/dL (Negative); Leukocyte Esterase Negative (Negative); Nitrite Negative (Negative); Specific Gravity 1.025 (1.005-1.025); pH 6.5 (5-8)
[2023-08-25 12:29] LABS: C & S Indicated? No; RBC >50 HPF (0-2)
[2023-08-25 14:32] VITALS: BP 117/79; PULSE 89; RESP 19; TEMP 34.3; O2SAT 94
[2023-08-25] MEDS: HYDROmorphone 2 MG/ML SYR 0.5 MG IVP (17:18)
--- NOTE | 2023-08-25 17:43 | DI.VRAD_ITS ---
PROCEDURE INFORMATION: Exam: CT Right Lower Extremity Without Contrast, Hip Exam date and time: 08/25/2023 4:35 PM Age: 58 years old Clinical indication: Other: Continued right hip swelling S/P failed imn fix; Prior surgery; Surgery date: 1-6 months; Surgery type: Hip/femoral FX TECHNIQUE: Imaging protocol: CT of the right lower extremity without contrast was performed. Exam focused on the hip. COMPARISON: CT LOWER EXTREMITY RT WO 08/17/2023 8:41 PM FINDINGS: Bones/joints: Right hip and femur compression nail and intramedullary beti. The compression nail extends through the superior femoral head into the joint space of the hip. Comminuted fracture of the proximal and mid femur. Small pockets of air present in the proximal right femur. Right knee joint space effusion. Soft tissues: Right posterior subcutaneous calcifications. Soft tissue edema/cellulitis. Small pocket of air with adjacent fluid in the right lateral subcutaneous tissue. Pocket of fluid measures 57 x 26 x 16 mm. Lateral hip subcutaneous hyperdense collection measuring 33 x 34 x 44 mm. Small pockets of air present in the right anterolateral thigh muscles. IMPRESSION: 1. Markedly comminuted fracture of the proximal and mid femur. 2. Right hip compression nail extends into the right hip joint space. 3. Lateral hyperdense subcutaneous collection in the hip. Probable hematoma. 4. Proximal and mid thigh lateral subcutaneous fluid collection containing air. Possible abscess. 5. Small air pockets present in the lateral/anterior proximal thigh muscles. Air present within the comminuted fracture of the proximal/mid femur. Possible necrotizing infection. 6. Diffuse soft tissue edema/cellulitis. THIS REPORT CONTAINS FINDINGS THAT MAY BE CRITICAL TO PATIENT CARE. The findings were verbally communicated via telephone conference with MANDIE KAUR at 5:42 PM EDT on 08/25/2023. The findings were acknowledged and understood. Dictated and Authenticated by: Arnaldo Kemp MD. Ordering:P.PROM Beny Ruiz MD
--- NOTE | 2023-08-25 18:21 | PGE_ITS ---
Date of Service Date of service: 08/25/23 Time of Service: 09:05 Assessment and Plan Assessment and plan (1) Closed comminuted intertrochanteric fracture of right femur: Status: Acute Assessment and plan: Has failed revision fixation. Deformity of the RLE is worse than I recall from previous visits, thus I will check a CT looking for the alignment changes but also any significant fluid collections. If there are any changes with the alignment where the hardware is more prominent, then I will have to make Steffi bedrest. (2) Closed right femoral fracture: Status: Acute Assessment and plan: Above Qualifiers: Encounter type: sequela Femur location: unspecified portion of femur Fracture morphology: other fracture Qualified Code(s): S72.8X1S - Other fracture of right femur, sequela (3) Hypoalbuminemia: Status: Acute Assessment and plan: Protein supplementation TID. (4) Hyponatremia: Status: Acute Assessment and plan: Hold Desmopressin. Follow labs. (5) Anemia due to blood loss: Status: Acute Assessment and plan: Stable. Continue to follow Hgb. (6) Thrombocytosis: Status: Acute Assessment and plan: Increasing over the past few days. Unclear the etiology, could be acute phase reactant. Will check UA and continue to follow. Start Enoxaparin for DVT prophylaxis. Subjective Subjective Interval history since last seen: Cramps are much better. No fever or chills. Pain is controlled. She does feel that the leg is not moving as much. No numbness or tinglng. Exam Narrative Exam Narrative: Sitting up in the chair. NAD. AAOx3. RLE dressing c/d/i. Thigh is still swollen with some induration. Thigh and buttock without any lesions or pressure points. Leg appears slightly shorter and more externally rotated than previous exams. +ADF/APF/EHL/FHL. SILT DP/SP/Tib. Objective Last Vital Signs Temp 34.3 C L 08/25/23 14:32 Pulse 89 08/25/23 14:32 Resp 19 08/25/23 14:32 BP 117/79 08/25/23 14:32 Pulse Ox 94 08/25/23 14:32 Laboratory Results - last 24 hr 08/25/23 08/25/23 06:10 12:03 WBC 9.71 RBC 3.22 L Hgb 9.9 L Hct 30.4 L MCV 94 MCH 30.7 MCHC 32.6 RDW 14.9 H Plt Count 662 H MPV 8.2 Sodium 134 L Potassium 4.2 Chloride 97 L Carbon Dioxide 30.8 Anion Gap 6.2 BUN 20 H Creatinine 0.5 L Est GFR (CKD-EPI 2020) 109.33 Glucose 114 H Calcium 9.1 Total Bilirubin 0.3 AST 68 H ALT 82 H Alkaline Phosphatase 156 H Total Protein 6.4 Albumin 2.6 L Urine Color Yellow Urine Clarity Sl Cloudy Urine pH 6.5 Ur Specific [place] 1.025 Urine Protein 100 H Urine Ketones Trace H Urine Blood Large H Urine Nitrite Negative Urine Bilirubin Negative Urine Urobilinogen 1.0 H Ur Leukocyte Esterase Negative Urine RBC >50 H Urine WBC Not Applicable Ur Epithelial Cells Not Applicable Urine Crystals Not Applicable Urine Bacteria Not Applicable Urine Mucus Not Applicable Ur Culture Indicated? No Urine Glucose Negative PAWSS Have you Been Recently Intoxicated or Drunk Within the Last 30 days?: No Have you Ever Experienced Previous Episodes of Alcohol Withdrawal?: No Have you ever Experienced Withdrawal Seizures?: No Have you ever Experienced Delirium Tremens(DT)s?: No Have you ever undergone Alcohol Rehabilitation Treatment (i.e, inpt ot outpatient treatment programs)?: No Have you ever Experienced Blackouts?: No Have you ever Combined Alcohol with other Downers within the last 90 days?: No Have you ever Combined Alcohol with any other Substance of Abuse during the last 90 days?: No Positive Blood Alcohol level on Presentation? [PCS.BAL]: No Evidence of Increased Autonomic Activity (i.e. HR>120, tremor, sweating, agitation, nausea)?: No Result: 0 Time Spent with Patient Time Spent with Patient: 25-34 minutes Time was spent: obtaining and/or reviewing separately otained hiistory, ordering medications,tests, procedures, indepentently interpreting results, counseling the patient and care coordination
[2023-08-25] MEDS: Melatonin 3 MG TAB 6 MG PO (19:48)
[2023-08-25 20:39] VITALS: BP 121/79; PULSE 95; RESP 20; TEMP 37; O2SAT 98
[2023-08-26] MEDS: Cyclobenzaprine 10 MG TAB 5 MG PO ×3 (02:01→23:16)
[2023-08-26 06:46] LABS: HCT 30.2 % (36.0-46.0); HGB 9.8 g/dL (11.2-15.7); MCH 30.5 pg (27.0-33.0); MCHC 32.5 % (32.0-36.0); MCV 94 fL (80-95); MPV 8.3 fL (8.0-11.0); Platelet Count 698 10^3/uL (130-400); RBC 3.21 10^6/uL (3.93-5.22); RDW 14.6 % (11.7-14.6); WBC 10.17 10^3/uL (4.4-10.8)
[2023-08-26 07:01] LABS: Anion Gap 6.7 mmol/L (3-11); BUN 20 mg/dL (7-18); CO2 29.3 mmol/L (21.0-32.0); CREATININE 0.5 mg/dL (0.55-1.02); Chloride 97 mmol/L (98-107); Estimated GFR 109.33 (mL/min/1.73m2); Glucose 109 mg/dL (74-106); Potassium 4.2 mmol/L (3.5-5.1); Sodium 133 mmol/L (136-145)
[2023-08-26 07:49] VITALS: BP 124/76; PULSE 91; RESP 20; TEMP 36.4; O2SAT 95
[2023-08-26] MEDS: Protein Nutritional Supplement 16 GM 1 OUNCE PACKET PO ×3 (08:57→20:33)
[2023-08-26] MEDS: Enoxaparin 40 MG/0.4 ML SYR SC (08:57)
[2023-08-26] MEDS: Timolol 0.5% 5 ML BTL OP (08:57)
[2023-08-26] MEDS: Fluticasone NASAL SPRAY 16 GM BTL NS (08:57)
[2023-08-26] MEDS: Spironolactone 50 MG TAB PO (08:58)
[2023-08-26] MEDS: buPROPion-XL 150 MG TABCR 300 MG PO (08:58)
[2023-08-26] MEDS: Calcium 600mg/Vit D 200U TAB 1 TAB PO (08:58)
[2023-08-26] MEDS: Cholecalciferol (Vitamin D3) 1,000 UNIT TAB 5000 UNITS PO (08:58)
[2023-08-26] MEDS: Multivitamin w/Minerals TAB 1 TAB PO (08:59)
[2023-08-26] MEDS: Baclofen 10 MG TAB 40 MG PO ×3 (08:59→20:34)
[2023-08-26] MEDS: Omeprazole 20 MG CAPCR PO (08:59)
[2023-08-26] MEDS: MODAFINIL 200 MG TAB PO ×2 (08:59→14:48)
[2023-08-26] MEDS: Metoprolol 25 MG TAB PO ×2 (09:00→20:34)
[2023-08-26] MEDS: DULoxetine 30 MG CAP 60 MG PO (09:00)
[2023-08-26] MEDS: Magnesium Gluconate 500 MG TAB PO (09:00)
--- NOTE | 2023-08-26 09:13 | W.PM.PROGNOT ---
Date of Service Date of service: 08/26/23 Time of Service: 10:21 Assessment and Plan Assessment and plan (1) Closed comminuted intertrochanteric fracture of right femur: Status: Acute Assessment and plan: Has failed revision fixation and unfortunately repeat CT scan of the right leg shows continued shortening of the leg, fracture fragments, and continued cut out. This is despite only doing bed to chair transfers. Therefore, Steffi will have to be bedrest trying to limit any further progression in anticipation of upcoming revision surgery. I have been in discussion with [facility]. Anticipated transfer date is on August 29. Qualifiers: Encounter type: subsequent encounter Fracture healing: with nonunion Qualified Code(s): S72.141K - Displaced intertrochanteric fracture of right femur, subsequent encounter for closed fracture with nonunion (2) Closed right femoral fracture: Status: Acute Assessment and plan: Above Qualifiers: Encounter type: sequela Femur location: unspecified portion of femur Fracture morphology: other fracture Qualified Code(s): S72.8X1S - Other fracture of right femur, sequela (3) Hypoalbuminemia: Status: Acute Assessment and plan: Protein supplementation TID. (4) Hyponatremia: Status: Acute Assessment and plan: Hold Desmopressin. Follow labs. Stable. (5) Anemia due to blood loss: Status: Acute Assessment and plan: Stable. Continue to follow Hgb. (6) Thrombocytosis: Status: Acute Assessment and plan: Increasing over the past few days. Unclear the etiology, could be acute phase reactant. Urinalysis was negative for any concerning of infection. Her white count still continues to be low and she has no fevers suggest that she is developing an active infection. Continue enoxaparin for clot prophylaxis. Continue to follow serial labs. (7) Spasticity: Status: Chronic Assessment and plan: Much improved with the addition of cyclobenzaprine. Subjective Subjective Interval history since last seen: Checking in on patient for Dr. Swan. She states things are about the same. She is largely comfortable in bed. No real complaints or concerns. Waiting for surgery at [facility] this week. Exam Narrative Exam Narrative: Awake, alert, and comfortable resting in bed. Right hip and thigh Mepilex dressings clean dry intact. Moderately diffuse lateral and posterior light ecchymosis. No cellulitis. Thigh is moderately enlarged compared to contralateral side. Compartments are all compressible. No pitting edema. No notable edema below the knee. Calf soft and nontender. Sensory intact throughout. No additional hip or extremity testing done due to fracture. Objective Last Vital Signs Temp 36.4 C L 08/26/23 07:49 Pulse 91 H 08/26/23 07:49 Resp 20 08/26/23 07:49 BP 124/76 08/26/23 07:49 Pulse Ox 95 08/26/23 07:49 Laboratory Results - last 24 hr 08/25/23 08/26/23 12:03 06:21 WBC 10.17 RBC 3.21 L Hgb 9.8 L Hct 30.2 L MCV 94 MCH 30.5 MCHC 32.5 RDW 14.6 Plt Count 698 H MPV 8.3 Sodium 133 L Potassium 4.2 Chloride 97 L Carbon Dioxide 29.3 Anion Gap 6.7 BUN 20 H Creatinine 0.5 L Est GFR (CKD-EPI 2020) 109.33 Glucose 109 H Calcium 9.0 Urine Color Yellow Urine Clarity Sl Cloudy Urine pH 6.5 Ur Specific [place] 1.025 Urine Protein 100 H Urine Ketones Trace H Urine Blood Large H Urine Nitrite Negative Urine Bilirubin Negative Urine Urobilinogen 1.0 H Ur Leukocyte Esterase Negative Urine RBC >50 H Urine WBC Not Applicable Ur Epithelial Cells Not Applicable Urine Crystals Not Applicable Urine Bacteria Not Applicable Urine Mucus Not Applicable Ur Culture Indicated? No Urine Glucose Negative Objective Narrative Objective Narrative: CT of the right lower extremity was reviewed from yesterday evening. This shows further cut of the helical blade through the femoral neck and through the femoral head. There is a slight indentation seen on the acetabular surface only on the coronal view, difficult to appreciate the other views. There is been further shortening and displacement of the fracture fragments at the level of the shaft and continued comminution proximally. There is still some remnant air seen at the fracture sites as well as in the lateral soft tissues which is most likely due to recent surgery. PAWSS Have you Been Recently Intoxicated or Drunk Within the Last 30 days?: No Have you Ever Experienced Previous Episodes of Alcohol Withdrawal?: No Have you ever Experienced Withdrawal Seizures?: No Have you ever Experienced Delirium Tremens(DT)s?: No Have you ever undergone Alcohol Rehabilitation Treatment (i.e, inpt ot outpatient treatment programs)?: No Have you ever Experienced Blackouts?: No Have you ever Combined Alcohol with other Downers within the last 90 days?: No Have you ever Combined Alcohol with any other Substance of Abuse during the last 90 days?: No Positive Blood Alcohol level on Presentation? [PCS.BAL]: No Evidence of Increased Autonomic Activity (i.e. HR>120, tremor, sweating, agitation, nausea)?: No Result: 0 Time Spent with Patient Time Spent with Patient: <25 minutes Time was spent: preparing to see the patient(eg.review tests), referring, communicating with other health home care associate, indepentently interpreting results and counseling the patient
[2023-08-26] MEDS: Acetaminophen 325 MG TAB 650 MG PO (11:47)
[2023-08-26] MEDS: HYDROmorphone 2 MG/ML SYR 0.5 MG IVP (12:34)
[2023-08-26] MEDS: Normal Saline Flush 10 ML SYR IVP (12:35)
[2023-08-26 15:49] VITALS: BP 103/66; PULSE 90; RESP 18; TEMP 37.3; O2SAT 94
[2023-08-26] MEDS: Melatonin 3 MG TAB 6 MG PO (20:34)
[2023-08-26 20:56] VITALS: BP 107/67; PULSE 98; RESP 18; TEMP 37.7; O2SAT 97
[2023-08-27 07:04] LABS: HCT 31.5 % (36.0-46.0); HGB 10.3 g/dL (11.2-15.7); MCH 30.9 pg (27.0-33.0); MCHC 32.7 % (32.0-36.0); MCV 95 fL (80-95); MPV 8.3 fL (8.0-11.0); RBC 3.33 10^6/uL (3.93-5.22); RDW 14.6 % (11.7-14.6); RDW-SD 50.4 fL; WBC 10.29 10^3/uL (4.4-10.8)
[2023-08-27 07:11] LABS: Anion Gap 7.6 mmol/L (3-11); BUN 18 mg/dL (7-18); CO2 29.4 mmol/L (21.0-32.0); CREATININE 0.5 mg/dL (0.55-1.02); Calcium 9.2 mg/dL (8.5-10.1); Chloride 97 mmol/L (98-107); Estimated GFR 109.33 (mL/min/1.73m2); Glucose 107 mg/dL (74-106); Sodium 134 mmol/L (136-145)
[2023-08-27 07:23] VITALS: BP 114/79; PULSE 97; RESP 22; TEMP 36.7; O2SAT 96
[2023-08-27 07:27] LABS: Platelet Count 702 10^3/uL (130-400)
--- NOTE | 2023-08-27 07:47 | PGE_ITS ---
Date of Service Date of service: 08/27/23 Time of Service: 12:30 Assessment and Plan Assessment and plan (1) Closed comminuted intertrochanteric fracture of right femur: Status: Acute Assessment and plan: Has failed revision fixation and unfortunately repeat CT scan of the right leg shows continued shortening of the leg, fracture fragments, and continued cut out. This is despite only doing bed to chair transfers. Hematoma seen on the CT but Hgb is stable. Plan for transfer to [facility], 08/28, for anticipated surgery 08/29. Qualifiers: Encounter type: subsequent encounter Fracture healing: with nonunion Qualified Code(s): S72.141K - Displaced intertrochanteric fracture of right femur, subsequent encounter for closed fracture with nonunion (2) Closed right femoral fracture: Status: Acute Assessment and plan: Above Qualifiers: Encounter type: sequela Femur location: unspecified portion of femur Fracture morphology: other fracture Qualified Code(s): S72.8X1S - Other fracture of right femur, sequela (3) Hypoalbuminemia: Status: Acute Assessment and plan: Protein supplementation TID. (4) Hyponatremia: Status: Acute Assessment and plan: Hold Desmopressin. Follow labs. Stable. (5) Anemia due to blood loss: Status: Acute Assessment and plan: Stable. Continue to follow Hgb. (6) Thrombocytosis: Status: Acute Assessment and plan: Increasing over the past few days, although relatively stable. Unclear the etiology, could be acute phase reactant. Continue enoxaparin for clot prophylaxis. Continue to follow serial labs. (7) Spasticity: Status: Chronic Assessment and plan: Much improved with the addition of cyclobenzaprine. Subjective Subjective Interval history since last seen: Steffi reports to be doing okay. No acute issues. She denies fever or chills or chest pain or SOB. She is now on bedrest precautions. She continues to have good spasm relief with the cyclobenzaprine. Exam Narrative Exam Narrative: NAD. AAOx3. RLE dressings c/d/i. Resolving ecchymosis within the thigh. Thigh seems more soft than previously. Still induration and swelling posteriorly. No signs of infection. +ADF/APF/EHL/FHL. SILT DP/SP/Tib. Objective Last Vital Signs Temp 36.7 C 08/27/23 07:23 Pulse 97 H 08/27/23 07:23 Resp 22 08/27/23 07:23 BP 114/79 08/27/23 07:23 Pulse Ox 96 08/27/23 07:23 Laboratory Results - last 24 hr 08/27/23 06:30 WBC 10.29 RBC 3.33 L Hgb 10.3 L Hct 31.5 L MCV 95 MCH 30.9 MCHC 32.7 RDW 14.6 Plt Count 702 H MPV 8.3 Sodium 134 L Potassium 4.0 Chloride 97 L Carbon Dioxide 29.4 Anion Gap 7.6 BUN 18 Creatinine 0.5 L Est GFR (CKD-EPI 2020) 109.33 Glucose 107 H Calcium 9.2 PAWSS Have you Been Recently Intoxicated or Drunk Within the Last 30 days?: No Have you Ever Experienced Previous Episodes of Alcohol Withdrawal?: No Have you ever Experienced Withdrawal Seizures?: No Have you ever Experienced Delirium Tremens(DT)s?: No Have you ever undergone Alcohol Rehabilitation Treatment (i.e, inpt ot outpatient treatment programs)?: No Have you ever Experienced Blackouts?: No Have you ever Combined Alcohol with other Downers within the last 90 days?: No Have you ever Combined Alcohol with any other Substance of Abuse during the last 90 days?: No Positive Blood Alcohol level on Presentation? [PCS.BAL]: No Evidence of Increased Autonomic Activity (i.e. HR>120, tremor, sweating, agitation, nausea)?: No Result: 0 Time Spent with Patient Time Spent with Patient: 25-34 minutes Time was spent: preparing to see the patient(eg.review tests), obtaining and/or reviewing separately otained hiistory, indepentently interpreting results, counseling the patient and care coordination
[2023-08-27] MEDS: Fluticasone NASAL SPRAY 16 GM BTL NS ×2 (08:47→20:51)
[2023-08-27] MEDS: Protein Nutritional Supplement 16 GM 1 OUNCE PACKET PO ×3 (08:47→20:12)
[2023-08-27] MEDS: Normal Saline Flush 10 ML SYR IVP ×3 (08:48→20:13)
[2023-08-27] MEDS: Enoxaparin 40 MG/0.4 ML SYR SC (08:48)
[2023-08-27] MEDS: buPROPion-XL 150 MG TABCR 300 MG PO (08:49)
[2023-08-27] MEDS: Baclofen 10 MG TAB 40 MG PO ×3 (08:49→20:12)
[2023-08-27] MEDS: Cholecalciferol (Vitamin D3) 1,000 UNIT TAB 5000 UNITS PO (08:49)
[2023-08-27] MEDS: Omeprazole 20 MG CAPCR PO (08:50)
[2023-08-27] MEDS: Spironolactone 50 MG TAB PO (08:50)
[2023-08-27] MEDS: DULoxetine 30 MG CAP 60 MG PO (08:50)
[2023-08-27] MEDS: Metoprolol 25 MG TAB PO ×2 (08:50→20:13)
[2023-08-27] MEDS: Multivitamin w/Minerals TAB 1 TAB PO (08:50)
[2023-08-27] MEDS: Magnesium Gluconate 500 MG TAB PO (08:51)
[2023-08-27] MEDS: MODAFINIL 200 MG TAB PO ×2 (08:51→14:25)
[2023-08-27] MEDS: Timolol 0.5% 5 ML BTL OP (08:51)
[2023-08-27] MEDS: Calcium 600mg/Vit D 200U TAB 1 TAB PO (08:51)
--- NOTE | 2023-08-27 11:30 | CMPROGNOTE_ITS ---
Date of service: 08/27/23 Time of Service: 11:30 Care Management Progress Note Progress Note Text Progress Note Text: S/O:Mina was lying in bed, reading a book when CM met with her. She is pleasant and easily engages in conversation. Surgical intervention is [place] with [facility] [place], on 08/29/23@1000 (arrival 4W). Full transfer [place] [facility] [place] is planned for tomorrow, pending bed availability. CM will continue to follow. A: 58 year old female admitted to [facility] on 08/17/23 for Femur Fracture, Anemia due to blood loss. P: Steffi will require full transfer [place] [facility] [place], scheduled for 08/29/23@1000 (arrival 4W). Transportation will be arranged tomorrow once her bed is assigned and will be coordinated by RN Sample Room Supervisor. CM will continue to follow.
--- NOTE | 2023-08-27 11:30 | PDOC.CMPRO ---
Date of service: 08/27/23 Time of Service: 11:30 Care Management Progress Note Progress Note Text Progress Note Text: S/O:Mina was lying in bed, reading a book when CM met with her. She is pleasant and easily engages in conversation. Surgical intervention is scheduled with [facility] same day surgery, on 08/29/23@1000 (arrival 4W). Full transfer to [facility] tomorrow is planned for tomorrow, pending bed availability. CM will continue to follow. A: 58 year old female admitted to [facility] on 08/17/23 for Femur Fracture, Anemia due to blood loss. P: Steffi will require full transfer to [facility] for same day surgery, scheduled for 08/29/23@1000 (arrival 4W). Transportation will be arranged tomorrow once her bed is assigned and will be coordinated by RN Lap Machine Operator. CM will continue to follow.
[2023-08-27 14:59] VITALS: BP 111/67; PULSE 86; RESP 20; TEMP 37.4; O2SAT 96
[2023-08-27 20:10] VITALS: BP 117/75; PULSE 91; RESP 15; TEMP 37.7; O2SAT 95
[2023-08-27] MEDS: Melatonin 3 MG TAB 6 MG PO (21:38)
[2023-08-27] MEDS: Cyclobenzaprine 10 MG TAB 5 MG PO (22:39)
[2023-08-28 01:00] VITALS: BP 104/66; PULSE 81; RESP 16; TEMP 37.5; O2SAT 94
--- NOTE | 2023-08-28 05:10 | DSE_ITS ---
Date of service: 08/28/23 Time of Service: 15:00 DS: Diagnosis Discharge Diagnosis (1) Closed comminuted intertrochanteric fracture of right femur: Status: Acute Asessment and Plan: Failed revision fixation with cutout through the femoral head and neck. Awaiting revision to proximal femoral replacement or long stemmed hip [place] [facility] (2) Closed right femoral fracture: Status: Acute (3) Hypoalbuminemia: Status: Acute Asessment and Plan: Protein supplementation. (4) Hyponatremia: Status: Acute Asessment and Plan: Stable with holding Desmopressin and maintaining catheter due to hyperactive and uncontrollable bladder. (5) Anemia due to blood loss: Status: Acute Asessment and Plan: Stable. (6) Thrombocytosis: Status: Acute Asessment and Plan: Increased but stable. Continuing to follow. (7) Spasticity: Status: Chronic Asessment and Plan: Continuing baseline Baclofen and addition of Cyclobenzaprine. Discharge Plan Disposition Patient Disposition: Transfer-Acute Inpatient Care Specific Acute In Facility: [facility] Condition: Stable Discharge Details Reason For Visit: Femur Fracture Admit Date/Time: 08/17/23 20:42 Admit Provider: Joseph Swan Attending Provider: Joseph Swan Primary Care Provider: Elizabeth Nunn Hospital Course Hospital Course: Steffi was admitted to the hospital for a fracture of the right femur around previous implant for her right proximal femur fracture. The previous fracture was diagnosed in a subcu fashion with notable shortening and comminution, fixed with a short intramedullary nail. She reportedly was making improvements at home until she tripped in the bathroom, landing on the right side and suffering a fracture of the right femur distal to the previous fracture and around the previous nail. On hospital day #2 she was taken to the operating room for revision fixation. This included open reduction of the femoral shaft and removal of the short femoral nail and placement of the long femoral nail. The proximal portion of the femur appeared to have adequate bone to support the helical blade and normal postoperative precautions were utilized. Postoperative x-rays after mobilization were obtained which showed cut out of the helical blade and shortening of the fracture on postop day #2. Consultation with colleagues at [facility] resulted in the plan for revision to a complex hip replacement versus a proximal femoral replacement. During her course in the hospital she did have some postoperative anemia, requiring 3 units of blood transfusion. She tolerated transfusion well and hemoglobin has been stable. She also had hyponatremia which was treated by fluid restriction and cessation of desmopressin. This improved on its own and she has now gone without any fluid restrictions and has maintained a stable sodium level. Urinary catheter was left in place due to her neurogenic bladder and the desire to keep her perineum sanitary given the proximity to incisions and her limited mobility. Repeat CT scan was performed during the mission which showed hematoma around the surgical site on the right leg and further loss of reduction of the right femoral fracture and further cut out, which prompted bedrest precautions. She did have some increasing spasms, which is common due to her multiple sclerosis, and was improved with the use of cyclobenzaprine. Urinalysis was performed given the duration of the urinary catheter and had no signs of infection. Home Meds and New Rx's Prescriptions: New cyclobenzaprine 10 mg Tablet 5 mg PO TID PRN PRNQty: 0 0RF acetaminophen 325 mg Tablet 650 mg PO Q6H PRN PRNQty: 0 0RF diphenhydramine HCl 25 mg Capsule 25 mg PO HS PRN PRNQty: 0 0RF sodium chloride 0.9 % (flush) [BD PosiFlush Normal Saline 0.9] Syringe 5 ml IVP PRN PRNQty: 0 0RF metoprolol tartrate 25 mg Tablet 25 mg PO BID PRNQty: 0 0RF One Daily Multi-Vit w-Mineral 4.5 mg iron Tablet 1 tab PO DAILY Qty: 0 0RF polyethylene glycol 3350 17 gram Powder In Packet 17 - 34 g PO BID PRN PRN (Reason: Constipation) Qty: 0 0RF Phlexy-Vits 15 mg- 700 mcg Powder In Packet 1 packet PO TID Qty: 0 0RF Continued melatonin 3 mg tablet 6 mg PO HS turmeric root extract 500 mg capsule 500 mg PO DAILY spironolactone 50 mg tablet 50 mg PO DAILY Qty: 90 1RF bupropion HCl 300 mg tablet extended release 24 hr 300 mg PO QAM Qty: 90 1RF duloxetine 60 mg capsule,delayed release(DR/EC) 60 mg PO DAILY Qty: 90 3RF lisinopril 40 mg tablet 40 mg PO DAILY Qty: 90 3RF timolol maleate (PF) [Timoptic Ocudose (PF)] 1 EACH dropperette 1 drp Ophthalmic DAILY Rx Instructions: BOTH EYES B Complex Plus Vitamin C 1 EACH capsule 1 cap PO DAILY Probiotic and Acidophilus 1 EACH capsule 1 cap PO DAILY pedi multivit 17-iron fumarate 1 EACH tablet,chewable 2 tab PO DAILY calcium carbonate-vitamin D3 1 EACH tablet 1 ea PO DAILY glucosamine sulf-chondroitinSA 1 EACH capsule 1 ea PO BID cholecalciferol (vitamin D3) 5,000 UNIT tablet 5,000 unit PO DAILY omeprazole 20 mg capsule,delayed release(DR/EC) 20 mg PO DAILY Qty: 90 3RF baclofen 20 mg tablet 40 mg PO TID Qty: 540 3RF modafinil [Provigil] 200 mg tablet 200 mg PO BID Qty: 180 1RF amlodipine 5 mg tablet 5 mg PO DAILY Qty: 90 3RF dalfampridine [Ampyra] 10 mg tablet extended release 12 hr 10 mg PO BID Qty: 180 3RF magnesium 500 mg tablet 500 mg PO DAILY docusate sodium [Colace] 100 mg capsule 100 mg PO BID PRNQty: 10 0RF oxycodone 5 mg tablet 5 mg PO Q4H PRNQty: 18 0RF fluticasone propionate 50 mcg/actuation [place],Suspension 1 spray INTRANASAL BID Rx Instructions: administer into each nostril Held aspirin 81 mg tablet,delayed release (DR/EC) 81 mg PO BID Qty: 60 0RF Hold Instructions: Resume on 08/30/23. Discontinued desmopressin 0.2 mg tablet 0.4 mg PO HS Qty: 180 3RF diphenhydramine-acetaminophen [Tylenol PM Extra Strength] 1 EACH tablet 1 tab PO HS (DME) AFO Refurbishment - new leather and adjust plastic See Rx Instructions .Route .MEDSUPPLY Qty: 1 0RF Rx Instructions: As directed - please adjust as the prior is worn out. metoprolol succinate 50 mg tablet extended release 24 hr 100 mg PO DAILY Qty: 90 3RF naproxen 500 mg tablet 500 mg PO BID PRNQty: 60 0RF acetaminophen 500 mg tablet 1,000 mg PO Q8H PRN (Reason: pain) Qty: 90 3RF Discharge Instructions Referrals: Joseph Swan MD [ [facility] ST[facility]FF [facility]YSICIAN] - Activity:: Bedrest Equipment/Supplies:: No Equipment Needed Diet:: As Tolerated Discharge Orders Discharge Orders: Discharge Order (Routine); Ordered 08/28/23 Ordered By: Joseph Swan DS: Summary Time Spent with Patient providing and/or coordinating discharge services: Less than 30 minutes Status at Discharge Functional status at discharge: bed bound Overall status at discharge: patient is not back to baseline Mental Status: mental status grossly normal Speech and Movement: speech and movement normal Mood: congruent mood Affect: normal affect Exam Narrative Exam Narrative: NAD. AAOx3. RLE dressings c/d/i. Resolving ecchymosis within the thigh. Thigh seems more soft than previously. Still induration and swelling posteriorly. No signs of infection. +ADF/APF/EHL/FHL. SILT DP/SP/Tib. Psych Mental Status: mental status grossly normal Speech and Movement: speech and movement normal Mood: congruent mood Affect: normal affect DS: Data Vitals/I&O Vitals and I&O: Vital Signs Temperature 37.5 C 08/28/23 01:00 Temperature Source Tympanic 08/28/23 01:00 Pulse 81 08/28/23 01:00 Pulse Rhythm Regular 08/27/23 20:20 Pulse 64 08/17/23 21:40 Respiratory Rate 16 08/28/23 01:00 Respiratory Effort Normal, Non-Labored 08/27/23 20:20 Respiratory Depth Normal 08/27/23 20:20 Respiratory Pattern Normal 08/27/23 20:20 Blood Pressure 104/66 08/28/23 01:00 Blood Pressure Mean 83 08/17/23 21:31 Blood Pressure Position Sitting 08/17/23 18:32 Pulse Oximetry 94 08/28/23 01:00 Respiratory End-tidal CO2 37 08/18/23 12:20 Oxygen Delivery Method Room Air 08/28/23 01:00 Oxygen Flow Rate 0 08/28/23 01:00 Pain Level 0 08/28/23 01:00 Comment right hip pain. 08/23/23 03:13 Intake & Output 08/27/23 08/27/23 08/28/23 11:59 23:59 11:59 Intake Total 250 / 250 Output Total 1200 / 2250 1050 / 2250 Balance -1200 / -1999 - / -1999 Intake: IV Oral 240 / 240 Output: Urine 1200 / 2250 1050 / 2250 Other: Urine Color Light Tania Pale Yellow Urine Appearance Clear Clear Urine Odor None Voiding Methods Indwelling Catheter Data Completed and Pending Labs on day of discharge: Labs from last 24 hours 08/27/23 06:30 WBC 10.29 RBC 3.33 L Hgb 10.3 L Hct 31.5 L MCV 95 MCH 30.9 MCHC 32.7 RDW 14.6 Plt Count 702 H MPV 8.3 Sodium 134 L Potassium 4.0 Chloride 97 L Carbon Dioxide 29.4 Anion Gap 7.6 BUN 18 Creatinine 0.5 L Est GFR (CKD-EPI 2020) 109.33 Glucose 107 H Calcium 9.2 PFSH All Active Problems Thrombocytosis (Acute) Hypoalbuminemia (Acute) Hyponatremia (Acute) Anemia due to blood loss (Acute) Closed right femoral fracture (Acute) Closed comminuted intertrochanteric fracture of right femur (Acute ~06/2023) Open reduction and intramedullary fixation DOS: 07/10/2023 Foot pain (Acute) Arthritis (Acute) Pes planus (Acute) Anemia (Acute) Essential hypertension (Chronic 09/02/13) Foot drop, left (Acute 05/17/15) Multiple sclerosis (Chronic 1991) Neurogenic bladder (Acute 01/13/16) Spasticity (Chronic 05/17/15) Synovial cyst of popliteal space (Acute) Urge incontinence of urine (Acute 08/08/12) Memory loss (Chronic) Depression (Chronic) Fatigue (Acute) Acquired pes planus of right foot (Chronic) chronic pain in foot; possible surgery Medical History Murmur, cardiac Closed subcapital fracture of left femur S/P L BELEN --DOS 03/15/22 Spinal stenosis of lumbar region with radiculopathy GERD (gastroesophageal reflux disease) Left carpal tunnel syndrome managed non-surgically Optic neuritis Surgical History Status post lumbar laminectomy (~07/2022) 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 S/P ovarian cystectomy S/P tonsillectomy and adenoidectomy S/P left knee arthroscopy partial medial meniscectomy, L Status post bunionectomy Status post myringotomy with insertion of tube Family History Mother , age 76 Diabetes Essential hypertension Asthma Father , age 55 Substance abuse Essential hypertension Hypercholesterolemia Alcohol abuse Brother Alcohol abuse Substance abuse Maternal Grandfather , age 68 Essential hypertension Hyperlipidemia Stroke Liver cancer Paternal Grandfather , age 78 Stomach cancer Maternal Grandmother , age 97 Diabetes Essential hypertension Hyperlipidemia Paternal Grandmother , age 76 Dementia Daughter No problems noted. Social History Smoking/Tobacco Use Status: Former Tobacco Use tobacco type: cigarettes Quit Date: 11/12/07 Tobacco: How many years used: 12 Second Hand Exposure: Yes Smoking risk assessment performed?: Yes Alcohol Intake: current Alcohol Intake frequency: a few times a month Alcohol type: beer, wine and hard liquor Drug use: Daily Substance use type: marijuana Caregiver/Support person: No Household members: spouse Housing: other Number of Children: 1 Communication Needs: None Do you need help understanding health information?: Never current occupation: [employer] 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 Pets and animals: Yes Pets and animals: cat(s) Sexually active: Yes Do you think of yourself as: straight/heterosexual Current gender identity: female What is your relationship status?: How often do you talk on the phone with friends or family?: never How often do you get together with friends or relatives?: never How often do you attend mosque or yazdanism services?: decline to answer Do you belong to any clubs or organized social groups?: no Panel score (0-1 are the most socially isolated patients): 1 What type of physical activity do you participate in: bicycling Duration: 15-30 minutes/day Frequency: 3-4 times per week Veda/Baptist: None Special veda needs: No Seatbelt use: always Helmet use: Yes Helmet use: sometimes Drive intox or ride w/intox front end loader driver: No Do you feel safe at home: Yes Do you feel safe in your relationship?: Yes Additional Social history: Enjoys reading, cross-stitch. Time Spent with Patient Time Spent with Patient: <45 minutes Time was spent: preparing to see the patient(eg.review tests), ordering medications,tests, procedures, referring, communicating with other health home care music therapist and care coordination
[2023-08-28] MEDS: Cyclobenzaprine 10 MG TAB 5 MG PO ×2 (06:43→12:12)
[2023-08-28] MEDS: Omeprazole 20 MG CAPCR PO (06:43)
[2023-08-28] MEDS: Acetaminophen 325 MG TAB 650 MG PO (06:43)
[2023-08-28 07:26] VITALS: BP 111/74; PULSE 85; RESP 18; TEMP 36.5; O2SAT 94
[2023-08-28] MEDS: Cholecalciferol (Vitamin D3) 1,000 UNIT TAB 5000 UNITS PO (08:11)
[2023-08-28] MEDS: DULoxetine 30 MG CAP 60 MG PO (08:11)
[2023-08-28] MEDS: Baclofen 10 MG TAB 40 MG PO ×2 (08:12→14:18)
[2023-08-28] MEDS: Magnesium Gluconate 500 MG TAB PO (08:13)
[2023-08-28] MEDS: buPROPion-XL 150 MG TABCR 300 MG PO (08:13)
[2023-08-28] MEDS: Calcium 600mg/Vit D 200U TAB 1 TAB PO (08:13)
[2023-08-28] MEDS: Spironolactone 50 MG TAB PO (08:14)
[2023-08-28] MEDS: Metoprolol 25 MG TAB PO (08:14)
[2023-08-28] MEDS: MODAFINIL 200 MG TAB PO ×2 (08:14→14:18)
[2023-08-28] MEDS: Multivitamin w/Minerals TAB 1 TAB PO (08:14)
[2023-08-28] MEDS: Protein Nutritional Supplement 16 GM 1 OUNCE PACKET PO ×2 (08:15→14:18)
[2023-08-28] MEDS: Enoxaparin 40 MG/0.4 ML SYR SC (08:15)
[2023-08-28] MEDS: Fluticasone NASAL SPRAY 16 GM BTL NS (08:16)
[2023-08-28] MEDS: Timolol 0.5% 5 ML BTL OP (08:16)
--- NOTE | 2023-08-28 14:22 | CMDISCH_ITS ---
Date of service: 08/28/23 Time of Service: 14:22 LACE Index Scoring Tool Questions: Length of Stay (in days): 7 - 13 Was the patient admitted via the E.D.?: Yes E.D. Visits: 2 Answers: Total Score: 10 Risk of Readmission: High Risk Care Management Discharge Plan Reason for Hospitalization: fracture of the right femur distal to medial Discharge Plan: [place] [facility] [place] surgery scheduled on 08/29/23@1000 (arrival 4W). EMS transportation is arranged by RN Microsoft Exchange Administrator. Patient/Family Education Needs: Review transfer instructions and anticipated plan of care
[2023-08-28] MEDS: HYDROmorphone 2 MG/ML SYR 0.5 MG IVP (14:27)
[2023-08-28] MEDS: Normal Saline Flush 10 ML SYR IVP (14:27)
[2023-08-28 15:18] VITALS: BP 109/74; PULSE 88; RESP 18; TEMP 36.9; O2SAT 94
--- NOTE | 2023-08-28 18:10 | NUR.NOTE ---
Nursing Note: Report given [place] [facility] at this time
== END 2023-08-28 17:59 | disposition short-term general hospital (02) | DRG 481 ==
LOC: ER 21:33 → MS 22:24
PROVIDERS: Nurse Anesthetist, Certified Registered; Physician Assistant; Admitting Provider Student in an Organized Health Care Education/Training Program; Emergency Provider Student in an Organized Health Care Education/Training Program; PCP Family Medicine; Visit Provider Student in an Organized Health Care Education/Training Program
PROC: 0QP104Z Removal of Internal Fixation Device from Sacrum, Open Approach (ICD-10-PCS; CPT 20680; principal; 2023-08-18 08:00)
DX: S72.351A Displaced comminuted fracture of shaft of right femur, initial encounter for closed fracture (principal); D62 Acute posthemorrhagic anemia; E87.1 Hypo-osmolality and hyponatremia; S72.141P Displaced intertrochanteric fracture of right femur, subsequent encounter for closed fracture with malunion; T84.89XA Other specified complication of internal orthopedic prosthetic devices, implants and grafts, initial encounter; R25.2 Cramp and spasm; N31.9 Neuromuscular dysfunction of bladder, unspecified; D75.839 Thrombocytosis, unspecified; W01.0XXA Fall on same level from slipping, tripping and stumbling without subsequent striking against object, initial encounter; Z96.642 Presence of left artificial hip joint; Z98.1 Arthrodesis status; S72.141D Displaced intertrochanteric fracture of right femur, subsequent encounter for closed fracture with routine healing; X58.XXXD Exposure to other specified factors, subsequent encounter; G89.29 Other chronic pain; M21.41 Flat foot [pes planus] (acquired), right foot; F32.A Depression, unspecified; R41.3 Other amnesia; I10 Essential (primary) hypertension; G35 Multiple sclerosis; N39.41 Urge incontinence; K21.9 Gastro-esophageal reflux disease without esophagitis; M48.061 Spinal stenosis, lumbar region without neurogenic claudication; M54.16 Radiculopathy, lumbar region; E88.09 Other disorders of plasma-protein metabolism, not elsewhere classified
CPT/HCPCS: 20680; 27506; 36415; 73552; 80048; 80053; 85027; 86850; 86900; 86901; 86920; 87635; 96374; 96375; 97162; 97530; 99223; 99285; J1650; NC; 71046; 72170; 72192; 73501; 73590; 73700; 81003; 81015; 84295; 85014; 85018; 85025; J0131; J0690; J1100; J1170; J1885; J1941; J2250; J2270; J2371; J2405; J2704; J3010; P9016

== ENCOUNTER 2023-09-14 18:18 | Inpatient (IN) | payer MEDICARE, SELFPAY ==
--- NOTE | 2023-09-14 18:35 | HPE_ITS ---
Date of service: 09/14/23 Time of Service: 19:58 Assessment and Plan Assessment and plan (1) Right femoral fracture: Status: Acute Assessment and plan: -s/p excision [facility] on 08/29/2023 -Ortho recommended treating with Xarelto 10 mg daily till 09/28/2023 -Please see discharge notes for wound care and PT recommendations -Appreciate wound care and PT assistance Qualifiers: Encounter type: sequela Femur location: unspecified portion of femur Fracture morphology: other fracture Fracture type: closed Qualified Code(s): S72.8X1S - Other fracture of right femur, sequela (2) Urinary incontinence: Status: Acute Assessment and plan: -Continue home DDAVP -Follow-up a.m. sodium Qualifiers: Urinary Incontinence type: other incontinence Qualified Code(s): N39.498 - Other specified urinary incontinence (3) Hypertension: Status: Chronic Assessment and plan: -Continue decreased dosage of spironolactone and lisinopril as well as home regimen of Toprol-XL Qualifiers: Hypertension type: primary hypertension Qualified Code(s): I10 - Essential (primary) hypertension (4) Secondary progressive multiple sclerosis: Status: Acute Assessment and plan: Continue home duloxetine, baclofen, Wellbutrin, Provigil (5) Anemia: Status: Acute Assessment and plan: -Discharge hemoglobin at [facility] 8.8 -Follow-up a.m. hemoglobin Qualifiers: Anemia type: other cause Other causes of anemia: acute posthemorrhagic Qualified Code(s): D62 - Acute posthemorrhagic anemia History of Present Illness History of Present Illness Chief Complaint: Transfer back from [facility] Narrative: 58-year-old female with history of secondary progressive multiple sclerosis, hypertension, osteoporosis who initially presented to [facility] on 05/17/2023 with an acute femur fracture distally recently placed intramedullary nail status post repeat ORIF on 08/18/2023 and subsequent course complicated by further community fracture and hardware displacement who was transferred to [facility] for revision procedure of her right hip on 08/29/2023 and is now being transferred back to [facility] for ongoing physical therapy and potential placement. While at [facility] patient went to the OR for repair on 08/29/2023 without any complications. However, postop day 2 postop day 3 she was hypotensive and anemic with hemoglobin of 6.5 which improved status post 1 unit of PRBCs and multiple fluid boluses. During that time her blood pressure meds were held but they were restarted prior to discharge and her hemoglobin slowly improved up to 8.8. Orthopedics recommended rivaroxaban 10 mg daily for which will be continued 30 days postop through 09/28/2023. Patient also with mild hyponatremia which resolved while holding her home DDAVP and fluid restriction ultimately her sodium levels improved and DDAVP was really started with recommendation to recheck her sodium in 1 week. Her home spironolactone and l isinopril doses were decreased but were restarted during admission while continuing her home metoprolol dose. Otherwise given that patient had successful surgical procedure and resolution of postoperative complications but required ongoing therapy and discharge planning she was transferred back to [facility]. Review of Systems All systems reviewed & are unremarkable except as noted in HPI and below PFSH All Active Problems (Updated 09/14/23 @ 20:[address] MD) Depression (Chronic) Secondary progressive multiple sclerosis (Acute) Hypertension (Chronic) Urinary incontinence (Acute) Right femoral fracture (Acute) Thrombocytosis (Acute) Hypoalbuminemia (Acute) Hyponatremia (Acute) Anemia due to blood loss (Acute) Closed right femoral fracture (Acute) Closed comminuted intertrochanteric fracture of right femur (Acute ~06/2023) Open reduction and intramedullary fixation DOS: 07/10/2023 Foot pain (Acute) Arthritis (Acute) Pes planus (Acute) Anemia (Acute) Essential hypertension (Chronic 09/02/13) Foot drop, left (Acute 05/17/15) Multiple sclerosis (Chronic 1991) Neurogenic bladder (Acute 01/13/16) Spasticity (Chronic 05/17/15) Synovial cyst of popliteal space (Acute) Urge incontinence of urine (Acute 08/08/12) Memory loss (Chronic) Depression (Chronic) Fatigue (Acute) Acquired pes planus of right foot (Chronic) chronic pain in foot; possible surgery Medical History Murmur, cardiac Closed subcapital fracture of left femur S/P L BELEN --DOS 03/15/22 Spinal stenosis of lumbar region with radiculopathy GERD (gastroesophageal reflux disease) Left carpal tunnel syndrome managed non-surgically Optic neuritis Surgical History Status post lumbar laminectomy (~07/2022) 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 S/P ovarian cystectomy S/P tonsillectomy and adenoidectomy S/P left knee arthroscopy partial medial meniscectomy, L Status post bunionectomy Status post myringotomy with insertion of tube Family History Mother , age 76 Diabetes Essential hypertension Asthma Father , age 55 Substance abuse Essential hypertension Hypercholesterolemia Alcohol abuse Brother Alcohol abuse Substance abuse Maternal Grandfather , age 68 Essential hypertension Hyperlipidemia Stroke Liver cancer Paternal Grandfather , age 78 Stomach cancer Maternal Grandmother , age 97 Diabetes Essential hypertension Hyperlipidemia Paternal Grandmother , age 76 Dementia Daughter No problems noted. Social History Smoking/Tobacco Use Status: Former Tobacco Use tobacco type: cigarettes Quit Date: 11/12/07 Tobacco: How many years used: 12 Second Hand Exposure: Yes Smoking risk assessment performed?: Yes Alcohol Intake: current Alcohol Intake frequency: a few times a month Alcohol type: beer, wine and hard liquor Drug use: Daily Substance use type: marijuana Caregiver/Support person: No Household members: spouse Housing: house Number of Children: 1 Communication Needs: None Do you need help understanding health information?: Never current occupation: [employer] 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 Pets and animals: Yes Pets and animals: cat(s) Sexually active: Yes Do you think of yourself as: straight/heterosexual Current gender identity: female What is your relationship status?: How often do you talk on the phone with friends or family?: never How often do you get together with friends or relatives?: never How often do you attend confucianism or mu-ism services?: decline to answer Do you belong to any clubs or organized social groups?: no Panel score (0-1 are the most socially isolated patients): 1 What type of physical activity do you participate in: bicycling Duration: 15-30 minutes/day Frequency: 3-4 times per week Veda/Christian: None Special veda needs: No Seatbelt use: always Helmet use: Yes Helmet use: sometimes Drive intox or ride w/intox trailer driver: No Do you feel safe at home: Yes Do you feel safe in your relationship?: Yes Additional Social history: Enjoys reading, cross-stitch. Meds Allergies and Home Medications Allergies Allergy/AdvReac Type Severity Reaction Status Date / Time Sulfa (Sulfonamide Allergy Intermediate SKIN RASH Verified 08/17/23 18:38 Antibiotics) Penicillins Allergy Unknown RASH Verified 08/17/23 18:38 chlorthalidone AdvReac Severe Hyponatremi Verified 08/17/23 18:38 a codeine AdvReac Unknown NAUSEA Verified 08/17/23 18:38 Home Medications Medication Instructions Recorded Confirmed Type Lactobacillus comb 1 cap PO DAILY 02/04/13 08/17/23 History no.7-KPC-pkcafwittg 300 million cell-250 mg capsule (Probiotic and Acidophilus) pediatric multivit no.17-ferrous 2 tab PO DAILY 02/04/13 08/17/23 History fumarate 15 mg iron chewable tablet timolol maleate (PF) 0.25 % eye 1 drp ophthalmic (eye) DAILY 02/04/13 08/17/23 History drops in a dropperette (Timoptic Ocudose (PF)) vitamin B comp and C no.3 15 mg-10 1 cap PO DAILY 02/04/13 08/17/23 History mg-50 mg-5 mg-300 mg capsule (B Complex Plus Vitamin C) calcium carbonate 600 mg-vitamin 1 ea PO DAILY 01/26/15 08/17/23 History D3 5 mcg (200 unit) tablet cholecalciferol (vitamin D3) 125 5,000 unit PO DAILY 01/26/15 08/17/23 History mcg (5,000 unit) tablet glucosamine sulfate 250 1 ea PO BID 01/26/15 08/17/23 History mg-chondroitin sulfate A 200 mg capsule melatonin 3 mg tablet 6 mg PO HS 03/25/19 08/17/23 History turmeric root extract 500 mg 500 mg PO DAILY 05/07/19 08/17/23 History capsule magnesium 500 mg tablet 500 mg PO DAILY 04/19/22 08/17/23 History lisinopril 40 mg tablet 40 mg PO DAILY #90 tabs 09/29/22 08/17/23 Rx omeprazole 20 mg capsule,delayed 20 mg PO DAILY #90 caps 10/17/22 08/17/23 Rx release baclofen 20 mg tablet 40 mg (2 x 20 mg) PO TID #540 tabs 12/25/22 08/17/23 Rx spironolactone 50 mg tablet 50 mg PO DAILY #90 tabs 02/09/23 08/17/23 Rx bupropion HCl 300 mg 24 hr tablet, 300 mg PO QAM #90 tabs 03/16/23 08/17/23 Rx extended release modafinil 200 mg tablet (Provigil) 200 mg PO BID #180 tabs 03/22/23 08/17/23 Rx amlodipine 5 mg tablet 5 mg PO DAILY #90 tabs 06/26/23 08/17/23 Rx aspirin 81 mg tablet,delayed 81 mg PO BID #60 tabs 07/13/23 07/23/23 Rx release docusate sodium 100 mg capsule 100 mg PO BID PRN #10 caps 07/13/23 08/17/23 Rx (Colace) oxycodone 5 mg tablet 5 mg PO Q4H PRN #18 tabs 07/13/23 07/23/23 Rx dalfampridine 10 mg 10 mg PO BID #180 tabs 07/16/23 08/17/23 Rx tablet,extended release,12 hr (Ampyra) fluticasone propionate 50 1 spray intranasal BID 08/19/23 08/19/23 History mcg/actuation nasal spray,suspension acetaminophen 325 mg tablet 650 mg (2 x 325 mg) PO Q6H PRN PRN 08/28/23 Rx #0 tabs cyclobenzaprine 10 mg tablet 5 mg (1/2 x 10 mg) PO TID PRN PRN 08/28/23 Rx #0 tabs diphenhydramine HCl 25 mg capsule 25 mg PO HS PRN PRN #0 caps 08/28/23 Rx metoprolol tartrate 25 mg tablet 25 mg PO BID PRN #0 tabs 08/28/23 Rx multivit with mins-ferrous sulf 15 1 packet PO TID #0 ea 08/28/23 Rx mg-folic 700 mcg oral powder packet (Phlexy-Vits) multivitamin with minerals-ferrous 1 tab PO DAILY #0 tabs 08/28/23 Rx sulfate 4.5 mg iron tablet (One Daily Multivitamins with Minerals) polyethylene glycol 3350 17 gram 17 - 34 g PO BID PRN PRN 08/28/23 Rx oral powder packet Constipation #0 ea sodium chloride 0.9 % (flush) (BD 5 ml IVP PRN PRN #0 mL 08/28/23 Rx PosiFlush Normal Saline 0.9 % injection syringe) duloxetine 60 mg capsule,delayed 60 mg PO DAILY #90 caps 09/13/23 Rx release Exam Narrative Exam Narrative: Well appearing female laying in bed in no acute distress, AOx4, heart RRR, lungs CTAB, decreased ROM of RLE secondary to pain Time Spent Time spent with Patient: >75 minutes (80min) Time was spent: preparing to see the patient(eg.review tests), obtaining and/or reviewing separately otained hiistory, referring, communicating with other health healthcare architect, indepentently interpreting results, counseling the patient and care coordination
[2023-09-14 19:10] VITALS: BP 128/87; PULSE 70; RESP 18; TEMP 36.5; O2SAT 94
[2023-09-14 19:46] VITALS: BP 128/87; PULSE 70; RESP 18; TEMP 36.5; O2SAT 94
[2023-09-14] MEDS: Gabapentin 300 MG CAP PO (20:38)
[2023-09-14] MEDS: Dronabinol 2.5 MG CAP PO (20:38)
[2023-09-14] MEDS: Desmopressin 0.2 MG TAB PO (20:39)
[2023-09-14] MEDS: Baclofen 10 MG TAB 40 MG PO (20:39)
[2023-09-14] MEDS: DULoxetine 30 MG CAP 60 MG PO (21:16)
[2023-09-14 23:24] VITALS: BP 118/70; PULSE 88; RESP 18; TEMP 37.9; O2SAT 94
[2023-09-15 06:48] LABS: HCT 29.2 % (36.0-46.0); HGB 9.5 g/dL (11.2-15.7); MCH 30.5 pg (27.0-33.0); MCHC 32.5 % (32.0-36.0); MCV 94 fL (80-95); MPV 7.9 fL (8.0-11.0); Platelet Count 624 10^3/uL (130-400); RBC 3.11 10^6/uL (3.93-5.22); RDW 15.5 % (11.7-14.6); RDW-SD 52.9 fL; WBC 8.32 10^3/uL (4.4-10.8)
[2023-09-15 06:59] LABS: Anion Gap 9.2 mmol/L (3-11); BUN 12 mg/dL (7-18); CO2 25.8 mmol/L (21.0-32.0); CREATININE 0.5 mg/dL (0.55-1.02); Chloride 88 mmol/L (98-107); Estimated GFR 109.33 (mL/min/1.73m2); Glucose 108 mg/dL (74-106); Potassium 4.5 mmol/L (3.5-5.1)
[2023-09-15 07:16] LABS: Sodium 123 mmol/L (136-145)
[2023-09-15 07:46] VITALS: BP 122/73; PULSE 74; RESP 15; TEMP 36.3; O2SAT 95
[2023-09-15] MEDS: Baclofen 10 MG TAB 40 MG PO (07:50)
[2023-09-15] MEDS: buPROPion-XL 150 MG TABCR 300 MG PO (07:51)
[2023-09-15] MEDS: Metoprolol CR 50 MG TABCR PO (07:51)
[2023-09-15] MEDS: Spironolactone 50 MG TAB PO (07:53)
[2023-09-15] MEDS: Ferrous Sulfate 325 MG TAB PO (07:53)
[2023-09-15] MEDS: Dronabinol 2.5 MG CAP PO (07:53)
[2023-09-15] MEDS: Gabapentin 300 MG CAP PO (07:53)
[2023-09-15] MEDS: Desmopressin 0.2 MG TAB PO (07:53)
[2023-09-15] MEDS: Pantoprazole 40 MG TABCR PO (07:53)
[2023-09-15] MEDS: Modafinil 100 MG TAB 200 MG PO (07:53)
[2023-09-15] MEDS: Rivaroxaban 10 MG TABLET PO (07:53)
--- NOTE | 2023-09-15 08:35 | IN_ITS ---
PT Notes Visit Reasons: s\p right repair of right proximal femur fracture Inpatient Physical Therapy Evaluation Date: September 15, 2020 Referring Doctor: Juanpablo Lane PT Orders: PT CONSULT: Nonurgent Precautions: Standard, fall, activities as tolerated, TDWB right LE Patient Profile/Admitting Diagnosis: 58-year-old female with history of secondary progressive multiple sclerosis, hypertension, osteoporosis who initially presented to [facility] on 05/17/2023 with an acute femur fracture distally recently placed intramedullary nail status post repeat ORIF on 08/18/2023 and subsequent course complicated by further community fracture and hardware displacement who was transferred to [facility] for revision procedure of her right hip on 08/29/2023 and is now being transferred back to [facility] for ongoing physical therapy and potential placement. PMHX: PFSH All Active Problems (Updated 09/14/23 @ 20:[address] MD) Depression (Chronic) Secondary progressive multiple sclerosis (Acute) Hypertension (Chronic) Urinary incontinence (Acute) Right femoral fracture (Acute) Thrombocytosis (Acute) Hypoalbuminemia (Acute) Hyponatremia (Acute) Anemia due to blood loss (Acute) Closed right femoral fracture (Acute) Closed comminuted intertrochanteric fracture of right femur (Acute ~06/2023) Open reduction and intramedullary fixation DOS: 07/10/2023Foot pain (Acute) Arthritis (Acute) Pes planus (Acute) Anemia (Acute) Essential hypertension (Chronic 09/02/13) Foot drop, left (Acute 05/17/15) Multiple sclerosis (Chronic 1991) Neurogenic bladder (Acute 01/13/16) Spasticity (Chronic 05/17/15) Synovial cyst of popliteal space (Acute) Urge incontinence of urine (Acute 08/08/12) Memory loss (Chronic) Depression (Chronic) Fatigue (Acute) Acquired pes planus of right foot (Chronic) chronic pain in foot; possible surgery Medical History Murmur, cardiac Closed subcapital fracture of left femur S/P L BELEN --DOS 03/15/22 Spinal stenosis of lumbar region with radiculopathy GERD (gastroesophageal reflux disease) Left carpal tunnel syndrome managed non-surgicallyOptic neuritis Surgical History Status post lumbar laminectomy (~07/2022) 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 Prior to her original fx, she ambulated household distances with a cane, and used a rollator for community ambulation. She additionally has a brace for her right foot and ankle to accommodate for instability and leg length discrepancy. Since her last surgery, she's been ambulating short distances with a walker, stating she was doing a lot better. Equipment Owned/DME: Rollator, cane, R LE AFO Subjective: Patient not complaining of any significant pain. She is able to verbalize her weightbearing status. States she is only able to put as much weight as if she was standing on a saltine. Is pleased with her progress thus far despite having refracture after her ORIF. Reports that she had a hospital shoe following her ORIF when she was recovering at [facility]. Questions if she can get another one as she soiled last 1 when she fell at home suffering her refracture. Objective: General Observation: External catheter, wedge to maintain abduction while in bed. Mental Status: A&Ox3. Pleasant and cooperative throughout. Pain: well managed. 0/10 at rest. ROM: Right Upper Extremity: WFL Left Upper Extremity: WFL Right Lower Extremity: Right foot and ankle shows pes planus position. Able to actively PF/DF within limited range. Hip motion allows 80* flexion. IR/ER not assessed. Knee motion 0-90* or greater. Left Lower Extremity: WFL Strength: Right Upper Extremity: WFL Left Upper Extremity: WFL Right Lower Extremity: Functionally unable to perform heel slide. Good quad activation with quad set and short arc quad, and able to demonstrate 3/5 or greater quad strength in sitting. DF 3/5 within available range. Left Lower Extremity: WFL. Able to perform active SLR and heel slide without difficulty or discomfort. Sensation: intact distally Bed Mobility/Transfers: Supine - sit: mod assist x1 HOB 45 degrees Sit - stand: mod assist x1 to FWW Stand - sit: min assistX1 from FWW Sit - supine: mod assist x1 for RLE Gait: 5' with FWW. Balance: Static Sitting: good Dynamic Sitting: fair Static Standing: fair Dynamic Standing: poor Special Tests: Mobility Limitations Standardized Measure [facility] AM-PAC 6 clicks Basic Mobility Inpatient Short Form: Raw Score: 12 CMS Score: 69% impairment Informed Consent/Education: Patient instructed in purpose of PT consult and plan of care. Instructed in ankle pumps and quad sets, to be completed hourly. Assessment: Patient is a 58 year old female referred to physical therapy services with the diagnosis of right BELEN 08/29/23. She originally underwent IMN fixation in May 2023, and was able to discharge home with HHPT. She has chronic mobility deficits due to MS. Patient presents with clinical signs and symptoms consistent with post-op status. She currently as demonstrated by the following impairment level findings: 1. decreased activity tolerance 2. decreased RLE ROM 3. chronic gait impairments Impairments are contributing to the following functional limitations: 1. unable to tolerate sitting 2. unable to transfer 3. unable to ambulate Patient is assessed as Moderate 56266 complexity based on the following: History: Patient is a 58 year old female with MS, following R BELEN 08/29/23. She has acute on chronic mobility impairments. Examination: functional limitations as noted above Presentation: evolving Decision Making: moderate complexity Goals: Goals X1 week 1. Supine-Sit independent 2. Sit-Supine independent 3. Sit-Stand close supervision at RW 4. Stand-Sit close supervision from RW 5. Bed-Chair CG x 1 with RW 6. Chair-Bed CG x 1 with RW 7. Gait 10 ft with RW CG Plan of Care/Treatment Plan: 1-2x/day, 7 days/week x 1 week. Plan of care has been reviewed with the [employer] [employer] providing the service under Physical Therapy direction. Initiate Physical Therapy intervention for strengthening, bed mobility, transfers, gait, stairs, balance training, use of assistive device. DISCHARGE RECOMMENDATIONS: Home with services (HH PT) vs SNF for continued rehabilitation. Will continue monitoring progress to determine discharge needs. TREATMENT CODE/TIME: 70617 IE. 10:20-10:50. Thank you for this referral. Partha Green PT,DPT Disclaimer: This note was created using [employer] voice recognition software. It was reviewed for major content. However, there may be multiple small discrepancies and errors due to the voice recognition aspects of the software.
--- NOTE | 2023-09-15 08:56 | CM.SBPSYCH ---
Date of service: 09/15/23 Time of Service: 08:56 SB Psychosocial/Act. [facility] Hospital Admission Admission Date: 09/14/23 Admission From:: [facility] Diagnosis:: s/p repair of right proximal femur fracture Swing Bed Admission Swing Bed Admit Date:: 09/14/23 Swing Bed Level of Care: Level 1/SNF Social Supports PREVIOUS FUNCTIONAL STATUS/SOCIAL/FAMILY SUPPORTS:: Steffi lives in [place] with her Pepe in a single level home. Their only daughter lives in [place], [place]. Steffi formerly worked at [employer] but was forced into early alf due to worsening symptoms of Multiple Sclerosis. Steffi states her is a shingler, so he does all of the cooking. Prior to her original fx, she ambulated household distances with a cane, and used a rollator for community ambulation. She additionally has a brace for her right foot and ankle to accommodate for instability and leg length discrepancy. Since her last surgery, she's been ambulating short distances with a walker, stating she was doing a lot better. Prior to Admission Living Arrangements/Environment Prior to Admission:: Steffi has been hospitalized over the last month. At baseline, she resides with her in [place]. Medical History PAST MEDICAL HISTORY/PAST SURGICAL HISTORY:: All Active Problems Closed subcapital fracture of left femur (Acute) Right sided sciatica (Acute) Constipation due to neurogenic bowel (Acute) Lumbosacral radiculopathy (Acute) Spinal stenosis of lumbar region with radiculopathy (Acute) Low back pain (Acute) Hamstring strain (Acute) Synovial cyst of popliteal space (Acute) Syncope (Acute) Left carpal tunnel syndrome (Acute) Atypical presentation of carpal tunnel syndrome I think her symptoms may be more likely to trauma to the radial nerve causing some sensory dysfunction from her frequent falls. She has no evidence of weakness of the wrist extensors or finger extensors. I would just recommend observation however if the patient has increasing symptoms of carpal tunnel on the left side then I would consider injection. I do not see need for any exploration of the radial nerve or the median nerve at this point. Memory loss (Chronic) Status post tonsillectomy and adenoidectomy (Acute) Status post myringotomy with insertion of tube (Acute) Status post bunionectomy (Acute) History of arthroscopy of knee (Acute) Fatigue (Acute) Acquired pes planus of right foot (Acute) Nocturia (Acute) Urge incontinence of urine (Acute 08/08/12) Spasticity (Chronic 05/17/15) Optic neuritis (Acute) Neurogenic bladder (Acute 01/13/16) Multiple sclerosis (Chronic 08/28/11) Foot drop, left (Acute 05/17/15) Essential hypertension (Chronic 09/02/13) Asthma (Acute) Pt denies having asthma Anemia (Acute) Medical History Depression GERD (gastroesophageal reflux disease) Surgical History S/P bunionectomy bilateral S/P left knee arthroscopy partial medial meniscectomy, L S/P myringotomy with insertion of tube x9 S/P ovarian cystectomy S/P tonsillectomy and adenoidectomy Admission Data Reason for Swing Bed Admission:: Post surgical rehabilitation for progress mobility and strengthening Discharge Plan:: Anticipate home with home health Assessment: Short term rehab [employer] [facility] Miller: Marian Perkins Date Assessment was completed:: 09/15/23
--- NOTE | 2023-09-15 09:01 | CM.SWINGPC ---
Date of service: 09/15/23 Time of Service: 09:01 Swingbed Plan of Care Activites/Discharge Plan of care: SWING BED PROGRAM ACTIVITIES/DISCHARGE PLAN OF CARE ACTIVITIES PLAN Date: 09/15/23 Identified Need: Life Enrichment during extended hosptialization Intervention/Plan: Activity cart, visits with family and friends, music therapy, tablet, laptop, television Initials: MEEK DISCHARGE PLAN Date: 09/15/23 Identified Need: Progress mobility and strengthening Intervention/Plan: Physical therapy Initials: MEEK
[2023-09-15 09:47] LABS: Anion Gap 6.8 mmol/L (3-11); BUN 12 mg/dL (7-18); CO2 27.2 mmol/L (21.0-32.0); CREATININE 0.6 mg/dL (0.55-1.02); Calcium 8.7 mg/dL (8.5-10.1); Chloride 86 mmol/L (98-107); Estimated GFR 104.63 (mL/min/1.73m2); Glucose 129 mg/dL (74-106); Potassium 4.1 mmol/L (3.5-5.1)
[2023-09-15 09:57] LABS: Sodium 120 mmol/L (136-145)
--- NOTE | 2023-09-15 11:41 | PDOC.CMPRO ---
Date of service: 09/15/23 Time of Service: 11:41 Care Management Progress Note Progress Note Text Progress Note Text: Camela will be made a full admit; and transition to inpatient status.
[2023-09-15 12:38] LABS: Anion Gap 4.5 mmol/L (3-11); BUN 13 mg/dL (7-18); CO2 28.5 mmol/L (21.0-32.0); CREATININE 0.4 mg/dL (0.55-1.02); Calcium 8.6 mg/dL (8.5-10.1); Chloride 86 mmol/L (98-107); Estimated GFR 115.37 (mL/min/1.73m2); Glucose 104 mg/dL (74-106); Potassium 4.4 mmol/L (3.5-5.1)
[2023-09-15 12:43] LABS: Sodium 119 mmol/L (136-145)
[2023-09-15 12:59] VITALS: BP 125/74; PULSE 70; RESP 16; TEMP 37; O2SAT 94
--- NOTE | 2023-09-15 13:46 | W.PM.DS.N ---
Date of service: 09/15/23 Time of Service: 13:46 DS: Diagnosis Discharge Diagnosis (1) Hyponatremia: Status: Acute (2) Right femoral fracture: Status: Acute (3) Urinary incontinence: Status: Acute (4) Hypertension: Status: Chronic (5) Secondary progressive multiple sclerosis: Status: Acute (6) Anemia: Status: Acute Discharge Plan Disposition Patient Disposition: Transfer-Acute Inpatient Care Specific Acute Inpt Facility: Other Condition: Serious Discharge Details Reason For Visit: s\p right repair of right proximal femur fracture Admit Date/Time: 09/14/23 18:18 Admit Provider: Deyanira George Attending Provider: Deyanira George Primary Care Provider: Elizabeth Nunn Hospital Course Hospital Course: Ms Coker is a 58 year old female with PMHx of MS, neurogenic and overactive bladder on desmopressin at night at home to decrease urinary frequency, hypertension, depression, who is being transferred to the ICU from SB1 status (where she was recovering after an ORIF of her R hip) due to her sodium of 119 accompanied by clouded vision that just started and (was only partially fixed when I cleaned her glasses). The patient was on desmopressin 0.2 mg PO BID on arrival from [facility]. This is not how she takes it at home, as per the patient. She denies any new numbness/tingling, though she normally has it in her B feet due to her MS. Denies nausea. Pain is controlled. Denies headache, dizziness, CP, SOB. She does report that her usual diarrhea had resolved on the bowel regimen. She is about to receive hypertonic saline during this conversation. Home Meds and New Rx's Prescriptions: No Action melatonin 3 mg tablet 6 mg PO HS turmeric root extract 500 mg capsule 500 mg PO DAILY spironolactone 50 mg tablet 50 mg PO DAILY Qty: 90 1RF bupropion HCl 300 mg tablet extended release 24 hr 300 mg PO QAM Qty: 90 1RF lisinopril 40 mg tablet 40 mg PO DAILY Qty: 90 3RF timolol maleate (PF) [Timoptic Ocudose (PF)] 1 EACH dropperette 1 drp Ophthalmic DAILY Rx Instructions: BOTH EYES B Complex Plus Vitamin C 1 EACH capsule 1 cap PO DAILY Probiotic and Acidophilus 1 EACH capsule 1 cap PO DAILY pedi multivit 17-iron fumarate 1 EACH tablet,chewable 2 tab PO DAILY calcium carbonate-vitamin D3 1 EACH tablet 1 ea PO DAILY glucosamine sulf-chondroitinSA 1 EACH capsule 1 ea PO BID cholecalciferol (vitamin D3) 5,000 UNIT tablet 5,000 unit PO DAILY omeprazole 20 mg capsule,delayed release(DR/EC) 20 mg PO DAILY Qty: 90 3RF baclofen 20 mg tablet 40 mg PO TID Qty: 540 3RF modafinil [Provigil] 200 mg tablet 200 mg PO BID Qty: 180 1RF amlodipine 5 mg tablet 5 mg PO DAILY Qty: 90 3RF dalfampridine [Ampyra] 10 mg tablet extended release 12 hr 10 mg PO BID Qty: 180 3RF duloxetine 60 mg capsule,delayed release(DR/EC) 60 mg PO DAILY Qty: 90 3RF desmopressin 0.2 mg tablet 0.4 mg PO HS magnesium 500 mg tablet 500 mg PO DAILY aspirin 81 mg tablet,delayed release (DR/EC) 81 mg PO BID Qty: 60 0RF Hold Instructions: Resume on 08/30/23. docusate sodium [Colace] 100 mg capsule 100 mg PO BID PRNQty: 10 0RF oxycodone 5 mg tablet 5 mg PO Q4H PRNQty: 18 0RF fluticasone propionate 50 mcg/actuation [place],Suspension 1 spray INTRANASAL BID Rx Instructions: administer into each nostril cyclobenzaprine 10 mg Tablet 5 mg PO TID PRN PRNQty: 0 0RF acetaminophen 325 mg Tablet 650 mg PO Q6H PRN PRNQty: 0 0RF diphenhydramine HCl 25 mg Capsule 25 mg PO HS PRN PRNQty: 0 0RF sodium chloride 0.9 % (flush) [BD PosiFlush Normal Saline 0.9] Syringe 5 ml IVP PRN PRNQty: 0 0RF metoprolol tartrate 25 mg Tablet 25 mg PO BID PRNQty: 0 0RF One Daily Multi-Vit w-Mineral 4.5 mg iron Tablet 1 tab PO DAILY Qty: 0 0RF polyethylene glycol 3350 17 gram Powder In Packet 17 - 34 g PO BID PRN PRN (Reason: Constipation) Qty: 0 0RF Phlexy-Vits 15 mg- 700 mcg Powder In Packet 1 packet PO TID Qty: 0 0RF Discharge Instructions Activity:: Activity as Tolerated Equipment/Supplies:: No Equipment Needed Diet:: As Tolerated Discharge Orders Discharge Orders: Discharge Order (Routine); Ordered 09/15/23 Ordered By: Kristin Solorio Discharge Data Discharge Date/Time-TO BE ENTERED AT DEPARTURE: 09/15/23 14:15 Discharge Comment: Was transferred to ICU for change in acuity DS: Summary Time Spent with Patient providing and/or coordinating discharge services: Greater than 30 minutes Status at Discharge Functional status at discharge: uses cane/walker Overall status at discharge: patient is progressing back to baseline Mental Status: mental status grossly normal Speech and Movement: speech and movement normal Mood: congruent mood Affect: normal affect Exam Narrative Exam Narrative: General: A pleasant middle-aged female who is A&Ox3, laying comfortably in bed, wearing glasses HEENT: Atraumatic, normocephalic, EOMI, MMM, clear oropharynx, no submandibular or cervical lymphadenopathy, no goiter or JVD Cardiovascular: RRR, loud end-diastolic click Lungs: CTAB anteriorly Gastrointestinal: soft, nontender, nondistended Extremities: see skin exam, no edema, clubbing, cyanosis, 2+ pedal pulses B, L foot drop, R foot flat Psych Mental Status: mental status grossly normal Speech and Movement: speech and movement normal Mood: congruent mood Affect: normal affect DS: Data Vitals/I&O Vitals and I&O: Vital Signs Temperature 37.0 C 09/15/23 12:59 Temperature Source Tympanic 09/15/23 12:59 Pulse 70 09/15/23 12:59 Pulse Rhythm Regular 09/15/23 08:02 Respiratory Rate 16 09/15/23 12:59 Respiratory Effort Normal, Non-Labored 09/15/23 08:02 Respiratory Depth Normal 09/15/23 08:02 Respiratory Pattern Normal 09/15/23 08:02 Blood Pressure 125/74 09/15/23 12:59 Pulse Oximetry 94 09/15/23 12:59 Oxygen Delivery Method Room Air 09/15/23 12:59 Oxygen Flow Rate 0 09/15/23 12:59 Pain Level 4 09/14/23 19:46 Intake & Output 09/14/23 09/15/23 09/15/23 23:59 11:59 23:59 Output Total 150 / 150 300 / 300 Balance -150 / -150 -300 / -300 Weight 62.157 kg Output: Urine 150 / 150 300 / 300 Other: Urine Color Pale Straw Yellow Urine Appearance Clear Clear Urine Odor None Strong Comment purwick wasn't working properly and leaked purewick Voiding Methods Diaper Incontinent Data Completed and Pending Labs on day of discharge: Labs from last 24 hours 09/15/23 09/15/23 09/15/23 12:12 09:15 06:32 WBC 8.32 RBC 3.11 L Hgb 9.5 L Hct 29.2 L MCV 94 MCH 30.5 MCHC 32.5 RDW 15.5 H Plt Count 624 H MPV 7.9 L Sodium 119 L* 120 L* 123 L* Potassium 4.4 4.1 4.5 Chloride 86 L 86 L 88 L Carbon Dioxide 28.5 27.2 25.8 Anion Gap 4.5 6.8 9.2 BUN 13 12 12 Creatinine 0.4 L 0.6 0.5 L Est GFR (CKD-EPI 2020) 115.37 104.63 109.33 Glucose 104 129 H 108 H Calcium 8.6 8.7 9.0 Magnesium 2.0 PFSH All Active Problems (Updated 09/15/23 @ 15:29 by Kristin Solorio MD) Discharge planning issues (Acute) DVT prophylaxis (Acute) Depression (Chronic) Secondary progressive multiple sclerosis (Acute) Hypertension (Chronic) Urinary incontinence (Acute) Right femoral fracture (Acute) Thrombocytosis (Acute) Hypoalbuminemia (Acute) Hyponatremia (Acute) Anemia due to blood loss (Acute) Closed right femoral fracture (Acute) Closed comminuted intertrochanteric fracture of right femur (Acute ~06/2023) Open reduction and intramedullary fixation DOS: 07/10/2023 Foot pain (Acute) Arthritis (Acute) Pes planus (Acute) Anemia (Acute) Essential hypertension (Chronic 09/02/13) Foot drop, left (Acute 05/17/15) Multiple sclerosis (Chronic 1991) Neurogenic bladder (Acute 01/13/16) Spasticity (Chronic 05/17/15) Synovial cyst of popliteal space (Acute) Urge incontinence of urine (Acute 08/08/12) Memory loss (Chronic) Depression (Chronic) Fatigue (Acute) Acquired pes planus of right foot (Chronic) chronic pain in foot; possible surgery Medical History Murmur, cardiac Closed subcapital fracture of left femur S/P L BELEN --DOS 03/15/22 Spinal stenosis of lumbar region with radiculopathy GERD (gastroesophageal reflux disease) Left carpal tunnel syndrome managed non-surgically Optic neuritis Surgical History Status post lumbar laminectomy (~07/2022) 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 S/P ovarian cystectomy S/P tonsillectomy and adenoidectomy S/P left knee arthroscopy partial medial meniscectomy, L Status post bunionectomy Status post myringotomy with insertion of tube Family History Mother , age 76 Diabetes Essential hypertension Asthma Father , age 55 Substance abuse Essential hypertension Hypercholesterolemia Alcohol abuse Brother Alcohol abuse Substance abuse Maternal Grandfather , age 68 Essential hypertension Hyperlipidemia Stroke Liver cancer Paternal Grandfather , age 78 Stomach cancer Maternal Grandmother , age 97 Diabetes Essential hypertension Hyperlipidemia Paternal Grandmother , age 76 Dementia Daughter No problems noted. Social History Smoking/Tobacco Use Status: Former Tobacco Use tobacco type: cigarettes Quit Date: 11/12/07 Tobacco: How many years used: 12 Second Hand Exposure: Yes Smoking risk assessment performed?: Yes Alcohol Intake: current Alcohol Intake frequency: a few times a month Alcohol type: beer, wine and hard liquor Drug use: Daily Substance use type: marijuana Caregiver/Support person: No Household members: spouse Housing: house Number of Children: 1 Communication Needs: None Do you need help understanding health information?: Never current occupation: [employer] 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 Pets and animals: Yes Pets and animals: cat(s) Sexually active: Yes Do you think of yourself as: straight/heterosexual Current gender identity: female What is your relationship status?: How often do you talk on the phone with friends or family?: never How often do you get together with friends or relatives?: never How often do you attend latter-day or baptism services?: decline to answer Do you belong to any clubs or organized social groups?: no Panel score (0-1 are the most socially isolated patients): 1 What type of physical activity do you participate in: bicycling Duration: 15-30 minutes/day Frequency: 3-4 times per week Veda/Jainism: None Special veda needs: No Seatbelt use: always Helmet use: Yes Helmet use: sometimes Drive intox or ride w/intox tilt tray driver: No Do you feel safe at home: Yes Do you feel safe in your relationship?: Yes Additional Social history: Enjoys reading, cross-stitch. Time Spent with Patient Time Spent with Patient: 45-69 minutes Time was spent: preparing to see the patient(eg.review tests), obtaining and/or reviewing separately otained hiistory, ordering medications,tests, procedures, referring, communicating with other health aged or disabled carer, indepentently interpreting results, counseling the patient and care coordination
--- NOTE | 2023-09-15 14:28 | NUR.NOTE ---
Nursing Note: pt transferred to the ICU at this time; report given to LA NENA Quezada; all patient belongings went with patient
--- NOTE | 2023-09-15 15:18 | W.PC.ACHO ---
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 S/P ovarian cystectomy S/P tonsillectomy and adenoidectomy S/P left knee arthroscopy Status post bunionectomy Status post myringotomy with insertion of tube Most Recent Vital Signs Temperature 37.0 C 09/15/23 12:59 Temperature Source Tympanic 09/15/23 12:59 Pulse 70 09/15/23 12:59 Pulse Rhythm Regular 09/15/23 08:02 Respiratory Rate 16 09/15/23 12:59 Respiratory Effort Normal, Non-Labored 09/15/23 08:02 Respiratory Depth Normal 09/15/23 08:02 Respiratory Pattern Normal 09/15/23 08:02 Blood Pressure 125/74 09/15/23 12:59 Pulse Oximetry 94 09/15/23 12:59 Oxygen Delivery Method Room Air 09/15/23 12:59 Oxygen Flow Rate 0 09/15/23 12:59 Pain Level 4 09/14/23 19:46 Allergies Sulfa (Sulfonamide Antibiotics) Allergy (Intermediate, Verified 08/17/23 18:38) SKIN RASH Penicillins Allergy (Unknown, Verified 08/17/23 18:38) RASH chlorthalidone Adverse Reaction (Severe, Verified 08/17/23 18:38) Hyponatremia codeine Adverse Reaction (Unknown, Verified 08/17/23 18:38) NAUSEA Active Medications Generic Name Dose Route Start Last Admin Trade Name Freq PRN Reason Stop Dose Admin Baclofen 40 mg 09/14/23 20:00 09/15/23 07:50 Baclofen 10 Mg Tab PO 40 mg TID WAYNE Administration Bupropion HCl 300 mg 09/15/23 08:30 09/15/23 07:51 Bupropion-Xl 150 Mg Tabcr PO 300 mg QAM WAYNE Administration Desmopressin Acetate 0.2 mg 09/14/23 20:00 09/15/23 07:53 Desmopressin 0.2 Mg Tab PO 0.2 mg BID WAYNE Administration Dronabinol 2.5 mg 09/14/23 20:00 09/15/23 07:53 Dronabinol 2.5 Mg Cap PO 2.5 mg BID WAYNE Administration Duloxetine HCl 60 mg 09/14/23 22:00 09/14/23 21:16 Duloxetine 30 Mg Cap PO 60 mg HS WAYNE Administration Ferrous Sulfate 325 mg 09/14/23 20:00 09/15/23 07:53 Ferrous Sulfate 325 Mg Tab PO 325 mg BID WAYNE Administration Gabapentin 300 mg 09/14/23 20:00 09/15/23 07:53 Gabapentin 300 Mg Cap PO 300 mg TID WAYNE Administration Metoprolol Succinate 50 mg 09/15/23 08:30 09/15/23 07:51 Metoprolol Cr 50 Mg Tabcr PO 50 mg DAILY WAYNE Administration Modafinil 200 mg 09/15/23 08:30 09/15/23 07:53 Modafinil 100 Mg Tab PO 200 mg QAM WAYNE Administration Pantoprazole Sodium 40 mg 09/15/23 07:30 09/15/23 07:53 Pantoprazole 40 Mg Tabcr PO 40 mg DAILY@0730 WAYNE Administration Rivaroxaban 10 mg 09/15/23 08:30 09/15/23 07:53 Rivaroxaban 10 Mg Tablet PO 09/28/23 10:00 10 mg DAILY WAYNE Administration Spironolactone 50 mg 09/15/23 08:30 09/15/23 07:53 Spironolactone 50 Mg Tab PO 50 mg DAILY WAYNE Administration Diet Orders Category Date Time Status Heart Healthy Eating [DIET] Nutrition 09/15/23 Breakfast Active Diagnostics 09/15/23 09/15/23 09/15/23 Range/Units 12:12 09:15 06:32 WBC 8.32 (4.4-10.8) 10^3/uL RBC 3.11 L (3.93-5.22) 10^6/uL Hgb 9.5 L (11.2-15.7) g/dL Hct 29.2 L (36.0-46.0) % MCV 94 (80-95) fL MCH 30.5 (27.0-33.0) pg MCHC 32.5 (32.0-36.0) % RDW 15.5 H (11.7-14.6) % Plt Count 624 H (130-400) 10^3/uL MPV 7.9 L (8.0-11.0) fL Sodium 119 L* 120 L* 123 L* (136-145) mmol/L Potassium 4.4 4.1 4.5 (3.5-5.1) mmol/L Chloride 86 L 86 L 88 L (98-107) mmol/L Carbon Dioxide 28.5 27.2 25.8 (21.0-32.0) mmol/L Anion Gap 4.5 6.8 9.2 (3-11) mmol/L BUN 13 12 12 (7-18) mg/dL Creatinine 0.4 L 0.6 0.5 L (0.55-1.02) mg/dL Est GFR (CKD-EPI 2020) 115.37 104.63 109.33 (mL/min/1.73m2) Glucose 104 129 H 108 H (74-106) mg/dL Calcium 8.6 8.7 9.0 (8.5-10.1) mg/dL Magnesium 2.0 (1.8-2.4) mg/dL Intake and Output - 24 Hour Total 09/14/23 thru 09/15/23 13:01 Output Total 450 Balance -450 Weight 62.157 kg Output: Urine 450 Other: Urine Color Straw Urine Appearance Clear Urine Odor Strong Comment purewick Voiding Methods Diaper Incontinent Falls Risk Assessment History of Falls No History 09/14/23 19:46 Contributing Factors No Factors 09/14/23 19:46 Ambulatory Aids Uses ambulatory device 09/14/23 19:46 Tubes/Lines None 09/14/23 19:46 Gait Evaluation W/no contributing factors 09/14/23 19:46 Cognition No cognitive impairment 09/14/23 19:46 Fall Total Score 25 09/14/23 19:46 Level of Risk Moderate Risk 09/14/23 19:46 Problems (Last Reviewed 08/28/23 @ 14:59 by Joseph Swan MD) Secondary progressive multiple sclerosis (Acute) Hypertension (Chronic) Urinary incontinence (Acute) Right femoral fracture (Acute) Anemia (Acute) Notes 09/15/23 14:28 Nursing Notes by [place] Nursing Note: pt transferred to the ICU at this time; report given to LA NENA Quezada; all patient belongings went with patient Initialized on 09/15/23 14:28 - END OF NOTE v v v v v v v v v Sending and/or Receiving Nurses: Please use comment section below to note any information pertinent to the patient hand-off not included above. Information / Comments: Report received from: Batool Chen RN
== END 2023-09-15 14:15 | disposition short-term general hospital (02) | DRG 560 ==
PROVIDERS: Family Medicine; Internal Medicine; Admitting Provider Nurse Practitioner Acute Care; PCP Family Medicine; Visit Provider Nurse Practitioner Acute Care
DX: S72.8X1D Other fracture of right femur, subsequent encounter for closed fracture with routine healing (principal); E87.1 Hypo-osmolality and hyponatremia; G35 Multiple sclerosis; I10 Essential (primary) hypertension; F32.A Depression, unspecified; E88.09 Other disorders of plasma-protein metabolism, not elsewhere classified; D75.839 Thrombocytosis, unspecified; M21.372 Foot drop, left foot; N31.8 Other neuromuscular dysfunction of bladder; N39.498 Other specified urinary incontinence; R41.3 Other amnesia; M48.061 Spinal stenosis, lumbar region without neurogenic claudication; M54.16 Radiculopathy, lumbar region; K21.9 Gastro-esophageal reflux disease without esophagitis; Z96.642 Presence of left artificial hip joint; Z87.891 Personal history of nicotine dependence
CPT/HCPCS: 00123; 36415; 80048; 85027; 99306; 99316; 83735; 99223; 99239

== ENCOUNTER 2023-09-15 13:42 | Inpatient (IN) | payer MEDICARE, SELFPAY ==
[2023-09-15] VITALS (69 sets, daily range): BP systolic 85–141; BP diastolic 54–102; PULSE 68–86; RESP 8–27; TEMP 36.4–36.8; O2SAT 92–97
--- NOTE | 2023-09-15 15:14 | W.PM.HP.N ---
Date of service: 09/15/23 Time of Service: 15:14 Assessment and Plan Assessment and plan (1) Hyponatremia: Status: Acute Assessment and plan: Symptomatic. Given her sodium of 119, she is receiving hypertonic saline while the desmopressin is on hold. Will trend sodiums every 4 hrs. (2) Right femoral fracture: Status: Acute Assessment and plan: S/p ORIF [facility] Continue PT, OT, wound care Continue Xarelto 10 mg daily through 09/28/2023, per ortho Qualifiers: Encounter type: sequela Femur location: unspecified portion of femur Fracture type: closed Fracture morphology: other fracture Qualified Code(s): S72.8X1S - Other fracture of right femur, sequela (3) Urinary incontinence: Status: Acute Assessment and plan: Hold desmopressin Consider bladder scans Qualifiers: Urinary Incontinence type: other incontinence Qualified Code(s): N39.498 - Other specified urinary incontinence (4) Hypertension: Status: Chronic Assessment and plan: Continue spironolactone, Toprol-XL. Hold lisinopril due to hyponatremia. Qualifiers: Hypertension type: primary hypertension Qualified Code(s): I10 - Essential (primary) hypertension (5) Secondary progressive multiple sclerosis: Status: Acute Assessment and plan: Continue duloxetine, baclofen, Wellbutrin, Provigil. C/s PT/OT (6) Anemia: Status: Acute Assessment and plan: H/H stable. No active bleeding. Qualifiers: Anemia type: other cause Other causes of anemia: acute posthemorrhagic Qualified Code(s): D62 - Acute posthemorrhagic anemia (7) DVT prophylaxis: Status: Acute Assessment and plan: rivaroxaban (being used specifically for DVT ppx) (8) Discharge planning issues: Status: Acute Assessment and plan: Full code as confirmed by conversation with the patient. Total Critical Care Time 45 minutes. History of Present Illness History of Present Illness Chief Complaint: Clouded vision Narrative: Ms Coker is a 58 year old female with PMHx of MS, neurogenic and overactive bladder on desmopressin at night at home to decrease urinary frequency, hypertension, depression, who is being transferred to the ICU from SB1 status (where she was recovering after an ORIF of her R hip) due to her sodium of 119 accompanied by clouded vision that just started and (was only partially fixed when I cleaned her glasses). The patient was on desmopressin 0.2 mg PO BID on arrival from [facility]. This is not how she takes it at home, as per the patient. She denies any new numbness/tingling, though she normally has it in her B feet due to her MS. Denies nausea. Pain is controlled. Denies headache, dizziness, CP, SOB. She does report that her usual diarrhea had resolved on the bowel regimen. She is about to receive hypertonic saline during this conversation. Review of Systems All systems reviewed & are unremarkable except as noted in HPI and below PFSH All Active Problems (Updated 09/15/23 @ 15:29 by Kristin Solorio MD) Discharge planning issues (Acute) DVT prophylaxis (Acute) Depression (Chronic) Secondary progressive multiple sclerosis (Acute) Hypertension (Chronic) Urinary incontinence (Acute) Right femoral fracture (Acute) Thrombocytosis (Acute) Hypoalbuminemia (Acute) Hyponatremia (Acute) Anemia due to blood loss (Acute) Closed right femoral fracture (Acute) Closed comminuted intertrochanteric fracture of right femur (Acute ~06/2023) Open reduction and intramedullary fixation DOS: 07/10/2023 Foot pain (Acute) Arthritis (Acute) Pes planus (Acute) Anemia (Acute) Essential hypertension (Chronic 09/02/13) Foot drop, left (Acute 05/17/15) Multiple sclerosis (Chronic 1991) Neurogenic bladder (Acute 01/13/16) Spasticity (Chronic 05/17/15) Synovial cyst of popliteal space (Acute) Urge incontinence of urine (Acute 08/08/12) Memory loss (Chronic) Depression (Chronic) Fatigue (Acute) Acquired pes planus of right foot (Chronic) chronic pain in foot; possible surgery Medical History Murmur, cardiac Closed subcapital fracture of left femur S/P L BELEN --DOS 03/15/22 Spinal stenosis of lumbar region with radiculopathy GERD (gastroesophageal reflux disease) Left carpal tunnel syndrome managed non-surgically Optic neuritis Surgical History Status post lumbar laminectomy (~07/2022) 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 S/P ovarian cystectomy S/P tonsillectomy and adenoidectomy S/P left knee arthroscopy partial medial meniscectomy, L Status post bunionectomy Status post myringotomy with insertion of tube Family History Mother , age 76 Diabetes Essential hypertension Asthma Father , age 55 Substance abuse Essential hypertension Hypercholesterolemia Alcohol abuse Brother Alcohol abuse Substance abuse Maternal Grandfather , age 68 Essential hypertension Hyperlipidemia Stroke Liver cancer Paternal Grandfather , age 78 Stomach cancer Maternal Grandmother , age 97 Diabetes Essential hypertension Hyperlipidemia Paternal Grandmother , age 76 Dementia Daughter No problems noted. Social History Smoking/Tobacco Use Status: Former Tobacco Use tobacco type: cigarettes Quit Date: 11/12/07 Tobacco: How many years used: 12 Second Hand Exposure: Yes Smoking risk assessment performed?: Yes Alcohol Intake: current Alcohol Intake frequency: a few times a month Alcohol type: beer, wine and hard liquor Drug use: Daily Substance use type: marijuana Caregiver/Support person: No Household members: spouse Housing: house Number of Children: 1 Communication Needs: None Do you need help understanding health information?: Never current occupation: [employer] 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 Pets and animals: Yes Pets and animals: cat(s) Sexually active: Yes Do you think of yourself as: straight/heterosexual Current gender identity: female What is your relationship status?: How often do you talk on the phone with friends or family?: never How often do you get together with friends or relatives?: never How often do you attend orthodox or holiness services?: decline to answer Do you belong to any clubs or organized social groups?: no Panel score (0-1 are the most socially isolated patients): 1 What type of physical activity do you participate in: bicycling Duration: 15-30 minutes/day Frequency: 3-4 times per week Veda/Mandaen: None Special veda needs: No Seatbelt use: always Helmet use: Yes Helmet use: sometimes Drive intox or ride w/intox scoop driver: No Do you feel safe at home: Yes Do you feel safe in your relationship?: Yes Additional Social history: Enjoys reading, cross-stitch. Meds Allergies and Home Medications Allergies Allergy/AdvReac Type Severity Reaction Status Date / Time Sulfa (Sulfonamide Allergy Intermediate SKIN RASH Verified 08/17/23 18:38 Antibiotics) Penicillins Allergy Unknown RASH Verified 08/17/23 18:38 chlorthalidone AdvReac Severe Hyponatremi Verified 08/17/23 18:38 a codeine AdvReac Unknown NAUSEA Verified 08/17/23 18:38 Home Medications Medication Instructions Recorded Confirmed Type Lactobacillus comb 1 cap PO DAILY 02/04/13 08/17/23 History no.0-[id number] 300 million cell-250 mg capsule (Probiotic and Acidophilus) pediatric multivit no.17-ferrous 2 tab PO DAILY 02/04/13 08/17/23 History fumarate 15 mg iron chewable tablet timolol maleate (PF) 0.25 % eye 1 drp ophthalmic (eye) DAILY 02/04/13 08/17/23 History drops in a dropperette (Timoptic Ocudose (PF)) vitamin B comp and C no.3 15 mg-10 1 cap PO DAILY 02/04/13 08/17/23 History mg-50 mg-5 mg-300 mg capsule (B Complex Plus Vitamin C) calcium carbonate 600 mg-vitamin 1 ea PO DAILY 01/26/15 08/17/23 History D3 5 mcg (200 unit) tablet cholecalciferol (vitamin D3) 125 5,000 unit PO DAILY 01/26/15 08/17/23 History mcg (5,000 unit) tablet glucosamine sulfate 250 1 ea PO BID 01/26/15 08/17/23 History mg-chondroitin sulfate A 200 mg capsule melatonin 3 mg tablet 6 mg PO HS 03/25/19 08/17/23 History turmeric root extract 500 mg 500 mg PO DAILY 05/07/19 08/17/23 History capsule magnesium 500 mg tablet 500 mg PO DAILY 04/19/22 08/17/23 History lisinopril 40 mg tablet 40 mg PO DAILY #90 tabs 09/29/22 08/17/23 Rx omeprazole 20 mg capsule,delayed 20 mg PO DAILY #90 caps 10/17/22 08/17/23 Rx release baclofen 20 mg tablet 40 mg (2 x 20 mg) PO TID #540 tabs 12/25/22 08/17/23 Rx spironolactone 50 mg tablet 50 mg PO DAILY #90 tabs 02/09/23 08/17/23 Rx bupropion HCl 300 mg 24 hr tablet, 300 mg PO QAM #90 tabs 03/16/23 08/17/23 Rx extended release modafinil 200 mg tablet (Provigil) 200 mg PO BID #180 tabs 03/22/23 08/17/23 Rx amlodipine 5 mg tablet 5 mg PO DAILY #90 tabs 06/26/23 08/17/23 Rx aspirin 81 mg tablet,delayed 81 mg PO BID #60 tabs 07/13/23 07/23/23 Rx release docusate sodium 100 mg capsule 100 mg PO BID PRN #10 caps 07/13/23 08/17/23 Rx (Colace) oxycodone 5 mg tablet 5 mg PO Q4H PRN #18 tabs 07/13/23 07/23/23 Rx dalfampridine 10 mg 10 mg PO BID #180 tabs 07/16/23 08/17/23 Rx tablet,extended release,12 hr (Ampyra) fluticasone propionate 50 1 spray intranasal BID 08/19/23 08/19/23 History mcg/actuation nasal spray,suspension acetaminophen 325 mg tablet 650 mg (2 x 325 mg) PO Q6H PRN PRN 08/28/23 Rx #0 tabs cyclobenzaprine 10 mg tablet 5 mg (1/2 x 10 mg) PO TID PRN PRN 08/28/23 Rx #0 tabs diphenhydramine HCl 25 mg capsule 25 mg PO HS PRN PRN #0 caps 08/28/23 Rx metoprolol tartrate 25 mg tablet 25 mg PO BID PRN #0 tabs 08/28/23 Rx multivit with mins-ferrous sulf 15 1 packet PO TID #0 ea 08/28/23 Rx mg-folic 700 mcg oral powder packet (Phlexy-Vits) multivitamin with minerals-ferrous 1 tab PO DAILY #0 tabs 08/28/23 Rx sulfate 4.5 mg iron tablet (One Daily Multivitamins with Minerals) polyethylene glycol 3350 17 gram 17 - 34 g PO BID PRN PRN 08/28/23 Rx oral powder packet Constipation #0 ea sodium chloride 0.9 % (flush) (BD 5 ml IVP PRN PRN #0 mL 08/28/23 Rx PosiFlush Normal Saline 0.9 % injection syringe) duloxetine 60 mg capsule,delayed 60 mg PO DAILY #90 caps 09/13/23 Rx release desmopressin 0.2 mg tablet 0.4 mg PO HS 09/15/23 09/15/23 History Exam Narrative Exam Narrative: General: A pleasant middle-aged female who is A&Ox3, laying comfortably in bed, wearing glasses Neurological: A&Ox3, 5/5 strength in BUEs, L foot drop, R foot flattened (baseline Psychiatric: Appropriate speech pattern/content Skin: B heels dressed - c/d/i; R hip incision healing well, open to air - c/d/i HEENT: Atraumatic, normocephalic, EOMI, MMM, clear oropharynx, no submandibular or cervical lymphadenopathy, no goiter or JVD Cardiovascular: RRR, loud end-diastolic click Lungs: CTAB anteriorly Gastrointestinal: soft, nontender, nondistended Genitourinary: deferred (no catheter at this time) Extremities: see skin exam, no edema, clubbing, cyanosis, 2+ pedal pulses B, L foot drop, R foot flat Results Labs 09/15/23 18:00 Last Vital Signs Temp 36.4 C L 09/15/23 14:40 Pulse 73 09/15/23 14:40 Resp 17 09/15/23 14:40 BP 126/75 09/15/23 14:40 Pulse Ox 95 09/15/23 14:40 Time Spent Time spent with Patient: 40-54 minutes Time was spent: preparing to see the patient(eg.review tests), obtaining and/or reviewing separately otained hiistory, ordering medications,tests, procedures, referring, communicating with other health healthcare or medical, indepentently interpreting results, counseling the patient and care coordination
[2023-09-15] MEDS: Gabapentin 300 MG CAP PO ×2 (15:42→20:48)
[2023-09-15] MEDS: Baclofen 10 MG TAB 40 MG PO ×2 (15:42→20:48)
[2023-09-15] MEDS: SODIUM CHLORIDE 3% 100 ML IV (15:45)
[2023-09-15 19:16] LABS: Anion Gap 4.5 mmol/L (3-11); BUN 14 mg/dL (7-18); CO2 27.5 mmol/L (21.0-32.0); CREATININE 0.6 mg/dL (0.55-1.02); Calcium 8.5 mg/dL (8.5-10.1); Chloride 92 mmol/L (98-107); Estimated GFR 104.63 (mL/min/1.73m2); Glucose 127 mg/dL (74-106)
[2023-09-15 19:18] LABS: Sodium 124 mmol/L (136-145)
[2023-09-15] MEDS: Dronabinol 2.5 MG CAP PO (20:48)
[2023-09-15] MEDS: Ferrous Sulfate 325 MG TAB PO (20:49)
[2023-09-15 22:16] LABS: Anion Gap 6.3 mmol/L (3-11); BUN 15 mg/dL (7-18); CO2 26.7 mmol/L (21.0-32.0); CREATININE 0.6 mg/dL (0.55-1.02); Calcium 8.5 mg/dL (8.5-10.1); Chloride 94 mmol/L (98-107); Estimated GFR 104.63 (mL/min/1.73m2); Glucose 110 mg/dL (74-106); Potassium 4.5 mmol/L (3.5-5.1); Sodium 127 mmol/L (136-145)
[2023-09-15] MEDS: Melatonin 3 MG TAB 6 MG PO (22:51)
[2023-09-15] MEDS: DULoxetine 30 MG CAP 60 MG PO (22:51)
[2023-09-15] MEDS: Normal Saline Flush 10 ML SYR IVP (23:27)
[2023-09-16] VITALS (32 sets, daily range): BP systolic 105–121; BP diastolic 57–78; PULSE 67–84; RESP 8–18; TEMP 36–37.9; O2SAT 94–97
[2023-09-16 01:05] LABS: Anion Gap 7.3 mmol/L (3-11); BUN 15 mg/dL (7-18); CO2 27.7 mmol/L (21.0-32.0); CREATININE 0.5 mg/dL (0.55-1.02); Calcium 8.8 mg/dL (8.5-10.1); Chloride 95 mmol/L (98-107); Estimated GFR 109.33 (mL/min/1.73m2); Glucose 106 mg/dL (74-106); Potassium 4.1 mmol/L (3.5-5.1); Sodium 130 mmol/L (136-145)
--- NOTE | 2023-09-16 01:50 | NUR.NOTE ---
Nursing Note: Sodium level on labs drawn @ 0145 = 130. Will notify provider. Up from 127 @ 2200.
[2023-09-16 06:31] LABS: Abs Immature Grans 0.15 10^3/uL (0.0-0.06); Absolute Basophil Count 0.06 10^3/uL (0.0-0.2); Absolute Lymphocyte Count 1.57 10^3/uL (1.2-3.4); Absolute Monocyte Count 0.89 10^3/uL (0.1-0.8); Basophils % 0.8; Eosinophils % 2.6; HCT 28.8 % (36.0-46.0); HGB 9.4 g/dL (11.2-15.7); Lymphocytes % 20.5; MCHC 32.6 % (32.0-36.0); MCV 98 fL (80-95); MPV 8.2 fL (8.0-11.0); Monocytes % 11.6; Neutrophils % 62.5; Platelet Count 613 10^3/uL (130-400); RBC 2.94 10^6/uL (3.93-5.22); RDW-SD 56.6 fL; WBC 7.67 10^3/uL (4.4-10.8)
[2023-09-16 06:56] LABS: Anion Gap 8.6 mmol/L (3-11); BUN 12 mg/dL (7-18); CO2 27.4 mmol/L (21.0-32.0); CREATININE 0.5 mg/dL (0.55-1.02); Chloride 95 mmol/L (98-107); Estimated GFR 109.33 (mL/min/1.73m2); Glucose 102 mg/dL (74-106); Magnesium 1.9 mg/dL (1.8-2.4); Potassium 4.1 mmol/L (3.5-5.1); Sodium 131 mmol/L (136-145)
--- NOTE | 2023-09-16 07:51 | PT.INIE ---
PT Notes Visit Reasons: Acute hyponatremia, R femoral fracture s/p ORIF, p Inpatient Physical Therapy Evaluation Date: September 16, 2023 Referring Doctor: Kristin Solorio PT Orders: PT CONSULT: Limited ability Precautions: Standard, fall, activities as tolerated, TDWB right LE Patient Profile/Admitting Diagnosis: 58-year-old female with history of secondary progressive multiple sclerosis, hypertension, osteoporosis who initially presented to [facility] on 05/17/2023 with an acute femur fracture distally recently placed intramedullary nail status post repeat ORIF on 08/18/2023 and subsequent course complicated by further community fracture and hardware displacement who was transferred to [facility] for revision procedure of her right hip on 08/29/2023 and is now being transferred back to [facility] for ongoing physical therapy and potential placement. Patient was evaluated yesterday on [facility] however her medical condition changed and she was placed in the ICU secondary to a drop in sodium. PMHX: PFSH All Active Problems (Updated 09/14/23 @ 20:[address] MD) Depression (Chronic) Secondary progressive multiple sclerosis (Acute) Hypertension (Chronic) Urinary incontinence (Acute) Right femoral fracture (Acute) Thrombocytosis (Acute) Hypoalbuminemia (Acute) Hyponatremia (Acute) Anemia due to blood loss (Acute) Closed right femoral fracture (Acute) Closed comminuted intertrochanteric fracture of right femur (Acute ~06/2023) Open reduction and intramedullary fixation DOS: 07/10/2023Foot pain (Acute) Arthritis (Acute) Pes planus (Acute) Anemia (Acute) Essential hypertension (Chronic 09/02/13) Foot drop, left (Acute 05/17/15) Multiple sclerosis (Chronic 1991) Neurogenic bladder (Acute 01/13/16) Spasticity (Chronic 05/17/15) Synovial cyst of popliteal space (Acute) Urge incontinence of urine (Acute 08/08/12) Memory loss (Chronic) Depression (Chronic) Fatigue (Acute) Acquired pes planus of right foot (Chronic) chronic pain in foot; possible surgery Medical History Murmur, cardiac Closed subcapital fracture of left femur S/P L BELEN --DOS 03/15/22 Spinal stenosis of lumbar region with radiculopathy GERD (gastroesophageal reflux disease) Left carpal tunnel syndrome managed non-surgicallyOptic neuritis Surgical History Status post lumbar laminectomy (~07/2022) 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 Prior to her original fx, she ambulated household distances with a cane, and used a rollator for community ambulation. She additionally has a brace for her right foot and ankle to accommodate for instability and leg length discrepancy. Since her last surgery, she's been ambulating short distances with a walker, stating she was doing a lot better. Equipment Owned/DME: Rollator, cane, R LE AFO Subjective: States that her vision is coming back. Had a lot of blurriness yesterday into the evening. No complaints of pain. Objective: General Observation: External catheter, wedge to maintain abduction while in bed. IV dorsum left hand. Telemetry. Resting comfortably in bed head of bed 40 degrees agreeable to evaluation. Mental Status: A&Ox3. Pleasant and cooperative throughout. Pain: well managed. 0/10 at rest. ROM: Right Upper Extremity: WFL Left Upper Extremity: WFL Right Lower Extremity: Right foot and ankle shows pes planus position. Able to actively PF/DF within limited range. Hip motion allows 80* flexion. IR/ER not assessed. Knee motion 0-90* or greater. Left Lower Extremity: WFL Strength: Right Upper Extremity: WFL Left Upper Extremity: WFL Right Lower Extremity: Functionally unable to perform heel slide. Good quad activation with quad set and short arc quad, and able to demonstrate 3/5 or greater quad strength in sitting. DF 3/5 within available range. Left Lower Extremity: WFL. Able to perform active SLR and heel slide without difficulty or discomfort. Sensation: intact distally Bed Mobility/Transfers: Supine - sit: mod assist x1 HOB 45 degrees Sit - stand: mod assist x1 to FWW Stand - sit: min assist X1 from FWW Sit - supine: mod assist x1 for RLE Gait: 5' with FWW mod assist x1 for lower extremity advancement. Very challenging returning back to bed as she has difficulty maneuvering reverse. Balance: Static Sitting: good Dynamic Sitting: fair Static Standing: fair Dynamic Standing: poor Special Tests: Mobility Limitations Standardized Measure [facility] AM-PAC 6 clicks Basic Mobility Inpatient Short Form: Raw Score: 12 CMS Score: 69% impairment Informed Consent/Education: Patient instructed in purpose of PT consult and plan of care. Instructed in ankle pumps and quad sets, to be completed hourly. Assessment: Patient is a 58 year old female referred to physical therapy services with the diagnosis of right BELEN 08/29/23. She originally underwent IMN fixation in May 2023, and was able to discharge home with HHPT. She has chronic mobility deficits due to MS. Patient presents with clinical signs and symptoms consistent with post-op status. Was transferred from [facility] to ICU yesterday due to drop in sodium. Appears to be holding up much better this morning. Sounds so the plan is to transfer her back to [facility]. She currently as demonstrated by the following impairment level findings: 1. decreased activity tolerance 2. decreased RLE ROM 3. chronic gait impairments Impairments are contributing to the following functional limitations: 1. unable to tolerate sitting 2. unable to transfer 3. unable to ambulate Patient is assessed as Moderate 43065 complexity based on the following: History: Patient is a 58 year old female with MS, following R BELEN 08/29/23. She has acute on chronic mobility impairments. Examination: functional limitations as noted above Presentation: evolving Decision Making: moderate complexity Goals: Goals X1 week 1. Supine-Sit independent 2. Sit-Supine independent 3. Sit-Stand close supervision at RW 4. Stand-Sit close supervision from RW 5. Bed-Chair CG x 1 with RW 6. Chair-Bed CG x 1 with RW 7. Gait 10 ft with RW CG Plan of Care/Treatment Plan: 1-2x/day, 7 days/week x 1 week. Plan of care has been reviewed with the GEOSCIENCE TECHNICIAN providing the service under Physical Therapy direction. Initiate Physical Therapy intervention for strengthening, bed mobility, transfers, gait, stairs, balance training, use of assistive device. DISCHARGE RECOMMENDATIONS: Home with services ( PT) vs SNF for continued rehabilitation. Will continue monitoring progress to determine discharge needs. TREATMENT CODE/TIME: 04618 IE 9:30-9:55. Thank you for this referral. Partha Green PT,DPT Disclaimer: This note was created using [employer] voice recognition software. It was reviewed for major content. However, there may be multiple small discrepancies and errors due to the voice recognition aspects of the software.
[2023-09-16] MEDS: Modafinil 100 MG TAB 200 MG PO (07:54)
[2023-09-16] MEDS: Spironolactone 25 MG TAB 50 MG PO (07:54)
[2023-09-16] MEDS: Dronabinol 2.5 MG CAP PO ×2 (07:55→19:47)
[2023-09-16] MEDS: buPROPion-XL 150 MG TABCR 300 MG PO (07:55)
[2023-09-16] MEDS: Baclofen 10 MG TAB 40 MG PO ×3 (07:56→19:47)
[2023-09-16] MEDS: Pantoprazole 40 MG TABCR PO (07:57)
[2023-09-16] MEDS: Rivaroxaban 10 MG TABLET PO (07:57)
[2023-09-16] MEDS: Ferrous Sulfate 325 MG TAB PO ×2 (07:57→19:47)
[2023-09-16] MEDS: Gabapentin 300 MG CAP PO ×3 (07:57→19:47)
[2023-09-16] MEDS: Metoprolol CR 50 MG TABCR PO (07:58)
--- NOTE | 2023-09-16 08:49 | PGE_ITS ---
Date of Service Date of service: 09/16/23 Time of Service: 08:56 Assessment and Plan Assessment and plan (1) Hyponatremia: Status: Acute Assessment and plan: Much improved both in numbers and symptoms. Ok to transfer out of the ICU. Repeat sodium at 12 pm. The patient was taking 0.2 mg of desmopression qhs at home, likely making the dose she received at [facility] excessive. I will make a decision as to whether to resume it after I have the noon-time sodium result. Continue to monitor neurochecks. (2) Right femoral fracture: Status: Acute Assessment and plan: S/p ORIF [facility] Continue PT, OT, wound care Continue Xarelto 10 mg daily through 09/28/2023, per ortho Qualifiers: Encounter type: sequela Femur location: unspecified portion of femur Fracture type: closed Fracture morphology: other fracture Qualified Code(s): S72.8X1S - Other fracture of right femur, sequela (3) Urinary incontinence: Status: Acute Assessment and plan: Hold desmopressin Consider bladder scans Qualifiers: Urinary Incontinence type: other incontinence Qualified Code(s): N39.498 - Other specified urinary incontinence (4) Hypertension: Status: Chronic Assessment and plan: Continue spironolactone, Toprol-XL. Hold lisinopril due to hyponatremia. Qualifiers: Hypertension type: primary hypertension Qualified Code(s): I10 - Essential (primary) hypertension (5) Secondary progressive multiple sclerosis: Status: Acute Assessment and plan: Continue duloxetine, baclofen, Wellbutrin, Provigil. PT/OT consulted (6) Anemia: Status: Acute Assessment and plan: H/H stable. No active bleeding. Qualifiers: Anemia type: other cause Other causes of anemia: acute posthemorrhagic Qualified Code(s): D62 - Acute posthemorrhagic anemia (7) DVT prophylaxis: Status: Acute Assessment and plan: rivaroxaban (being used specifically for DVT ppx) (8) Discharge planning issues: Status: Acute Assessment and plan: Full code. Transfer out of the ICU to the medical surgical floor Subjective Subjective Interval history since last seen: The clouded vision has almost completely resolved. The patient states that yesterday she could not read. She can today. Denies dizziness, headache, new numbness/tingling, CP, SOB, nausea. Pain is controlled. Exam Narrative Exam Narrative: General: A pleasant middle-aged female who is A&Ox3, laying comfortably in bed, wearing glasses Neurological: A&Ox3, 5/5 strength in BUEs, L foot drop, R foot flattened (baseline HEENT: EOMI, MMM Cardiovascular: RRR Lungs: CTAB Gastrointestinal: soft, nontender, nondistended Extremities: heel dressings in place, no edema, clubbing, cyanosis, 2+ pedal pulses B, L foot drop, R foot flat Objective Last Vital Signs Temp 36.1 C L 09/16/23 08:32 Pulse 76 09/16/23 08:32 Resp 16 09/16/23 08:32 BP 121/70 09/16/23 08:32 Pulse Ox 95 09/16/23 08:32 Laboratory Results - last 24 hr 09/15/23 09/15/23 09/16/23 18:28 21:57 01:48 EST WBC RBC Hgb Hct MCV MCH MCHC RDW Plt Count MPV Immature Gran % Neutrophils % Lymphocytes % Monocytes % Eosinophils % Basophils % Nucleated RBC % Absolute Neutrophils Absolute Lymphocytes Absolute Monocytes Absolute Eosinophils Absolute Basophils Sodium 124 L* 127 L 130 L Potassium 4.0 4.5 4.1 Chloride 92 L 94 L 95 L Carbon Dioxide 27.5 26.7 27.7 Anion Gap 4.5 6.3 7.3 BUN 14 15 15 Creatinine 0.6 0.6 0.5 L Est GFR (CKD-EPI 2020) 104.63 104.63 109.33 Glucose 127 H 110 H 106 Calcium 8.5 8.5 8.8 Magnesium 09/16/23 05:50 WBC 7.67 RBC 2.94 L Hgb 9.4 L Hct 28.8 L MCV 98 H D MCH 32.0 MCHC 32.6 RDW 16.0 H Plt Count 613 H MPV 8.2 Immature Gran % 2.0 Neutrophils % 62.5 Lymphocytes % 20.5 Monocytes % 11.6 Eosinophils % 2.6 Basophils % 0.8 Nucleated RBC % 0.0 Absolute Neutrophils 4.80 Absolute Lymphocytes 1.57 Absolute Monocytes 0.89 H Absolute Eosinophils 0.20 Absolute Basophils 0.06 Sodium 131 L Potassium 4.1 Chloride 95 L Carbon Dioxide 27.4 Anion Gap 8.6 BUN 12 Creatinine 0.5 L Est GFR (CKD-EPI 2020) 109.33 Glucose 102 Calcium 9.0 Magnesium 1.9 Time Spent with Patient Time Spent with Patient: 25-34 minutes Time was spent: preparing to see the patient(eg.review tests), obtaining and/or reviewing separately otained hiistory, ordering medications,tests, procedures, referring, communicating with other health home health care respiratory therapist, indepentently interpreting results, counseling the patient and care coordination
--- NOTE | 2023-09-16 10:14 | W.PC.ACHO ---
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 S/P ovarian cystectomy S/P tonsillectomy and adenoidectomy S/P left knee arthroscopy Status post bunionectomy Status post myringotomy with insertion of tube Most Recent Vital Signs Temperature 36.1 C L 09/16/23 08:32 Temperature Source Temporal Artery Scan 09/16/23 08:32 Pulse 76 09/16/23 08:32 Pulse 71 09/16/23 04:03 Respiratory Rate 16 09/16/23 08:32 Respiratory Effort Normal 09/16/23 08:32 Respiratory Depth Normal 09/16/23 08:32 Respiratory Pattern Normal 09/16/23 08:32 Blood Pressure 121/70 09/16/23 08:32 Blood Pressure Mean 87 09/16/23 08:32 Blood Pressure Position Supine 09/16/23 08:32 Pulse Oximetry 95 09/16/23 08:32 Oxygen Delivery Method Room Air 09/16/23 08:32 Oxygen Flow Rate 0 09/16/23 08:32 Pain Level 0 09/16/23 08:32 Allergies Sulfa (Sulfonamide Antibiotics) Allergy (Intermediate, Verified 08/17/23 18:38) SKIN RASH Penicillins Allergy (Unknown, Verified 08/17/23 18:38) RASH chlorthalidone Adverse Reaction (Severe, Verified 08/17/23 18:38) Hyponatremia codeine Adverse Reaction (Unknown, Verified 08/17/23 18:38) NAUSEA Active Medications Generic Name Dose Route Start Last Admin Trade Name Freq PRN Reason Stop Dose Admin Baclofen 40 mg 09/15/23 14:00 09/16/23 07:56 Baclofen 10 Mg Tab PO 40 mg TID WAYNE Administration Bupropion HCl 300 mg 09/16/23 08:30 09/16/23 07:55 Bupropion-Xl 150 Mg Tabcr PO 300 mg QAM WAYNE Administration Dronabinol 2.5 mg 09/15/23 20:00 09/16/23 07:55 Dronabinol 2.5 Mg Cap PO 2.5 mg BID WAYNE Administration Duloxetine HCl 60 mg 09/15/23 22:00 09/15/23 22:51 Duloxetine 30 Mg Cap PO 60 mg HS WAYNE Administration Ferrous Sulfate 325 mg 09/15/23 20:00 09/16/23 07:57 Ferrous Sulfate 325 Mg Tab PO 325 mg BID WAYNE Administration Gabapentin 300 mg 09/15/23 15:35 09/16/23 07:57 Gabapentin 300 Mg Cap PO 300 mg TID WAYNE Administration Melatonin 6 mg 09/15/23 22:00 09/15/23 22:51 Melatonin 3 Mg Tab PO 6 mg HS WAYNE Administration Metoprolol Succinate 50 mg 09/16/23 08:30 09/16/23 07:58 Metoprolol Cr 50 Mg Tabcr PO 50 mg DAILY WAYNE Administration Modafinil 200 mg 09/16/23 08:30 09/16/23 07:54 Modafinil 100 Mg Tab PO 200 mg QAM WAYNE Administration Pantoprazole Sodium 40 mg 09/16/23 07:30 09/16/23 07:57 Pantoprazole 40 Mg Tabcr PO 40 mg DAILY@0730 WAYNE Administration Rivaroxaban 10 mg 09/16/23 08:30 09/16/23 07:57 Rivaroxaban 10 Mg Tablet PO 10/01/23 10:00 10 mg DAILY WAYNE Administration Sodium Chloride 0 ml 09/15/23 13:41 09/15/23 23:27 Normal Saline Flush 10 Ml Syr IVP 10 ml PRN PRN Administration IV IV Catheter Type [Left Hand] Saline Lock IV Catheter Gauge [Left Hand] 20 Diagnostics 09/16/23 09/16/23 09/16/23 Range/Units 12:00 05:50 01:48 EST WBC 7.67 (4.4-10.8) 10^3/uL RBC 2.94 L (3.93-5.22) 10^6/uL Hgb 9.4 L (11.2-15.7) g/dL Hct 28.8 L (36.0-46.0) % MCV 98 H D (80-95) fL MCH 32.0 (27.0-33.0) pg MCHC 32.6 (32.0-36.0) % RDW 16.0 H (11.7-14.6) % Plt Count 613 H (130-400) 10^3/uL MPV 8.2 (8.0-11.0) fL Immature Gran % 2.0 Neutrophils % 62.5 Lymphocytes % 20.5 Monocytes % 11.6 Eosinophils % 2.6 Basophils % 0.8 Nucleated RBC % 0.0 (0.0-0.3) % Absolute Neutrophils 4.80 (1.2-6.7) 10^3/uL Absolute Lymphocytes 1.57 (1.2-3.4) 10^3/uL Absolute Monocytes 0.89 H (0.1-0.8) 10^3/uL Absolute Eosinophils 0.20 (0.0-0.7) 10^3/uL Absolute Basophils 0.06 (0.0-0.2) 10^3/uL Sodium Pending 131 L 130 L (136-145) mmol/L Potassium Pending 4.1 4.1 (3.5-5.1) mmol/L Chloride Pending 95 L 95 L (98-107) mmol/L Carbon Dioxide Pending 27.4 27.7 (21.0-32.0) mmol/L Anion Gap Pending 8.6 7.3 (3-11) mmol/L BUN Pending 12 15 (7-18) mg/dL Creatinine Pending 0.5 L 0.5 L (0.55-1.02) mg/dL Est GFR (CKD-EPI 2020) Pending 109.33 109.33 (mL/min/1.73m2) Glucose Pending 102 106 (74-106) mg/dL Calcium Pending 9.0 8.8 (8.5-10.1) mg/dL Magnesium 1.9 (1.8-2.4) mg/dL 09/15/23 09/15/23 Range/Units 21:57 18:28 WBC (4.4-10.8) 10^3/uL RBC (3.93-5.22) 10^6/uL Hgb (11.2-15.7) g/dL Hct (36.0-46.0) % MCV (80-95) fL MCH (27.0-33.0) pg MCHC (32.0-36.0) % RDW (11.7-14.6) % Plt Count (130-400) 10^3/uL MPV (8.0-11.0) fL Immature Gran % Neutrophils % Lymphocytes % Monocytes % Eosinophils % Basophils % Nucleated RBC % (0.0-0.3) % Absolute Neutrophils (1.2-6.7) 10^3/uL Absolute Lymphocytes (1.2-3.4) 10^3/uL Absolute Monocytes (0.1-0.8) 10^3/uL Absolute Eosinophils (0.0-0.7) 10^3/uL Absolute Basophils (0.0-0.2) 10^3/uL Sodium 127 L 124 L* (136-145) mmol/L Potassium 4.5 4.0 (3.5-5.1) mmol/L Chloride 94 L 92 L (98-107) mmol/L Carbon Dioxide 26.7 27.5 (21.0-32.0) mmol/L Anion Gap 6.3 4.5 (3-11) mmol/L BUN 15 14 (7-18) mg/dL Creatinine 0.6 0.6 (0.55-1.02) mg/dL Est GFR (CKD-EPI 2020) 104.63 104.63 (mL/min/1.73m2) Glucose 110 H 127 H (74-106) mg/dL Calcium 8.5 8.5 (8.5-10.1) mg/dL Magnesium (1.8-2.4) mg/dL Intake and Output - 24 Hour Total 09/15/23 thru 09/16/23 08:32 Intake Total 1673 Output Total 2300 Balance -627 Weight 65.3 kg Intake: IV 110 Oral 1563 Output: Urine 2300 Other: Urine Color Yellow Urine Appearance Clear Urine Odor Normal Comment Asymptomatic. External female catheter functioning well. Stool Size Moderate Stool Characteristics Formed Falls Risk Assessment History of Falls Previous History 09/15/23 14:40 Contributing Factors Impairments 09/15/23 14:40 Ambulatory Aids Uses ambulatory device + 09/15/23 14:40 Tubes/Lines With any additional score 09/15/23 14:40 Gait Evaluation W/no contributing factors 09/15/23 14:40 Cognition No cognitive impairment 09/15/23 14:40 Fall Total Score 78 09/15/23 14:40 Level of Risk Maximum Risk 09/15/23 14:40 Problems (Last Reviewed 08/28/23 @ 14:59 by Joseph Swan MD) Discharge planning issues (Acute) DVT prophylaxis (Acute) Secondary progressive multiple sclerosis (Acute) Hypertension (Chronic) Urinary incontinence (Acute) Right femoral fracture (Acute) Hyponatremia (Acute) Anemia (Acute) Notes 09/16/23 01:50 EST Nursing Notes by Myesha Lugo Nursing Note: Sodium level on labs drawn @ 0145 = 130. Will notify provider. Up from 127 @ 2200. Initialized on 09/16/23 01:50 EST - END OF NOTE v v v v v v v v v Sending and/or Receiving Nurses: Please use comment section below to note any information pertinent to the patient hand-off not included above. Information / Comments: Report received from:Valentino Martin RN to Petar Gandhi RN.
--- NOTE | 2023-09-16 10:47 | INITIAL_ITS ---
Date of service: 09/16/23 Time of Service: 10:47 Care Management Initial Assmt Initial Assessment REASON FOR HOSPITALIZATION:: Acute hyponatremia, R femoral fracture s/p ORIF Has patient been provided with info about the portal/API?: Yes Did the patient sign up for the portal?: Yes CODE STATUS:: Full Code [facility] All Active Problems (Updated 09/16/23 @ 00:04 by BELEN JONES) Discharge planning issues (Acute) DVT prophylaxis (Acute) Depression (Chronic) Secondary progressive multiple sclerosis (Acute) Hypertension (Chronic) Urinary incontinence (Acute) Right femoral fracture (Acute) Thrombocytosis (Acute) Hypoalbuminemia (Acute) Hyponatremia (Acute) Anemia due to blood loss (Acute) Closed right femoral fracture (Acute) Closed comminuted intertrochanteric fracture of right femur (Acute ~06/2023) Open reduction and intramedullary fixation DOS: 07/10/2023 Foot pain (Acute) Arthritis (Acute) Pes planus (Acute) Anemia (Acute) Essential hypertension (Chronic 09/02/13) Foot drop, left (Acute 05/17/15) Multiple sclerosis (Chronic 1991) Neurogenic bladder (Acute 01/13/16) Spasticity (Chronic 05/17/15) Synovial cyst of popliteal space (Acute) Urge incontinence of urine (Acute 08/08/12) Memory loss (Chronic) Depression (Chronic) Fatigue (Acute) Acquired pes planus of right foot (Chronic) chronic pain in foot; possible surgery Medical History Murmur, cardiac Closed subcapital fracture of left femur S/P L BELEN --DOS 03/15/22 Spinal stenosis of lumbar region with radiculopathy GERD (gastroesophageal reflux disease) Left carpal tunnel syndrome managed non-surgically Optic neuritis Surgical History Status post lumbar laminectomy (~07/2022) 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 S/P ovarian cystectomy S/P tonsillectomy and adenoidectomy S/P left knee arthroscopy partial medial meniscectomy, L Status post bunionectomy Status post myringotomy with insertion of tube Family History Mother , age 76 Diabetes Essential hypertension Asthma Father , age 55 Substance abuse Essential hypertension Hypercholesterolemia Alcohol abuse Brother Alcohol abuse Substance abuse Maternal Grandfather , age 68 Essential hypertension Hyperlipidemia Stroke Liver cancer Paternal Grandfather , age 78 Stomach cancer Maternal Grandmother , age 97 Diabetes Essential hypertension Hyperlipidemia Paternal Grandmother , age 76 Dementia Daughter No problems noted. Social History Smoking/Tobacco Use Status: Former Tobacco Use tobacco type: cigarettes Quit Date: 11/12/07 Tobacco: How many years used: 12 Second Hand Exposure: Yes Smoking risk assessment performed?: Yes Alcohol Intake: current Alcohol Intake frequency: a few times a month Alcohol type: beer, wine and hard liquor Drug use: Daily Substance use type: marijuana Caregiver/Support person: No Household members: spouse Housing: house Number of Children: 1 Communication Needs: None Do you need help understanding health information?: Never current occupation: [employer]. 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 Pets and animals: Yes Pets and animals: cat(s) Sexually active: Yes Do you think of yourself as: straight/heterosexual Current gender identity: female What is your relationship status?: How often do you talk on the phone with friends or family?: never How often do you get together with friends or relatives?: never How often do you attend nondenominational or mandaen services?: decline to answer Do you belong to any clubs or organized social groups?: no Panel score (0-1 are the most socially isolated patients): 1 What type of physical activity do you participate in: bicycling Duration: 15-30 minutes/day Frequency: 3-4 times per week Veda/Congregational: None Special veda needs: No Seatbelt use: always Helmet use: Yes Helmet use: sometimes Drive intox or ride w/intox 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
[2023-09-16 12:06] LABS: Anion Gap 6.9 mmol/L (3-11); BUN 12 mg/dL (7-18); CO2 28.1 mmol/L (21.0-32.0); CREATININE 0.5 mg/dL (0.55-1.02); Calcium 8.9 mg/dL (8.5-10.1); Chloride 92 mmol/L (98-107); Estimated GFR 109.33 (mL/min/1.73m2); Glucose 101 mg/dL (74-106); Potassium 4.3 mmol/L (3.5-5.1); Sodium 127 mmol/L (136-145)
[2023-09-16 18:50] LABS: Sodium 129 mmol/L (136-145)
[2023-09-16] MEDS: Normal Saline Flush 10 ML SYR IVP (19:46)
[2023-09-16] MEDS: Melatonin 3 MG TAB 6 MG PO (20:56)
[2023-09-16] MEDS: DULoxetine 30 MG CAP 60 MG PO (20:57)
[2023-09-17 00:29] VITALS: BP 109/77; PULSE 85; RESP 18; TEMP 37.1; O2SAT 94
[2023-09-17 04:01] VITALS: BP 107/65; PULSE 74; RESP 18; TEMP 36.1; O2SAT 93
[2023-09-17 06:35] LABS: Abs Immature Grans 0.07 10^3/uL (0.0-0.06); Absolute Basophil Count 0.07 10^3/uL (0.0-0.2); Absolute Eosinophil Count 0.24 10^3/uL (0.0-0.7); Absolute Lymphocyte Count 1.78 10^3/uL (1.2-3.4); Absolute Neutrophil Count 4.71 10^3/uL (1.2-6.7); Basophils % 0.9; HCT 30.6 % (36.0-46.0); HGB 9.9 g/dL (11.2-15.7); Immature Grans % 0.9; Lymphocytes % 22.6; MCH 31.8 pg (27.0-33.0); MCHC 32.4 % (32.0-36.0); MCV 98 fL (80-95); MPV 8.1 fL (8.0-11.0); Monocytes % 12.7; Neutrophils % 59.9; Platelet Count 609 10^3/uL (130-400); RBC 3.11 10^6/uL (3.93-5.22); RDW 16.3 % (11.7-14.6); RDW-SD 58.4 fL; WBC 7.87 10^3/uL (4.4-10.8)
[2023-09-17 06:55] LABS: Anion Gap 6.4 mmol/L (3-11); BUN 15 mg/dL (7-18); CO2 28.6 mmol/L (21.0-32.0); CREATININE 0.5 mg/dL (0.55-1.02); Calcium 9.3 mg/dL (8.5-10.1); Chloride 94 mmol/L (98-107); Estimated GFR 109.33 (mL/min/1.73m2); Glucose 106 mg/dL (74-106); Magnesium 1.9 mg/dL (1.8-2.4); Potassium 4.3 mmol/L (3.5-5.1); Sodium 129 mmol/L (136-145)
[2023-09-17] MEDS: Pantoprazole 40 MG TABCR PO (07:16)
[2023-09-17 07:39] VITALS: BP 101/64; PULSE 72; RESP 18; TEMP 36.1; O2SAT 97
[2023-09-17] MEDS: Baclofen 10 MG TAB 40 MG PO ×3 (08:06→20:11)
[2023-09-17] MEDS: Ferrous Sulfate 325 MG TAB PO ×2 (08:07→20:11)
[2023-09-17] MEDS: Gabapentin 300 MG CAP PO ×3 (08:07→20:10)
[2023-09-17] MEDS: Rivaroxaban 10 MG TABLET PO (08:07)
[2023-09-17] MEDS: Metoprolol CR 50 MG TABCR PO (08:07)
[2023-09-17] MEDS: Dronabinol 2.5 MG CAP PO ×2 (08:07→17:12)
[2023-09-17] MEDS: buPROPion-XL 150 MG TABCR 300 MG PO (08:07)
[2023-09-17] MEDS: Normal Saline Flush 10 ML SYR IVP (08:07)
[2023-09-17] MEDS: Spironolactone 50 MG TAB PO (08:07)
[2023-09-17] MEDS: Modafinil 100 MG TAB 200 MG PO (08:07)
--- NOTE | 2023-09-17 09:45 | CMPROGNOTE_ITS ---
Date of service: 09/17/23 Time of Service: 09:45 Care Management Progress Note Progress Note Text Progress Note Text: S/O: Steffi was lying in bed when CM met with her. She stated that she met with Dr. Swan again today, who indicated that she will need to be non weight- bearing for another three weeks. She expressed frustration about this, and for not being able to walk. She stated that she continues to work with PT on other skills including strengthening and transferring. She reported that she is tired, and that her energy level has been low lately, which she attributes to being hospitalized for a month. She remains in good spirits, and has a good unde rstanding of her plan of care. She will transition to [facility] once she has been medically cleared. Per report, this will likely be within 24-48H. CM will continue to follow. A: Steffi is a 58 year old female admitted to [facility] on 09/15/23 for acute hyponatremia, R femoral fracture s/p ORIF. P: Steffi will enter [facility] for short term rehab once she becomes medically cleared. She will work with PT to progress toward her goals; anticipate she will return home with services once she reaches her goals with PT. Her is supportive and will transport as needed. She will follow up with her PCP and dis charge plan of care.
[2023-09-17 11:05] VITALS: BP 107/60; PULSE 73; RESP 17; TEMP 37.3; O2SAT 94
--- NOTE | 2023-09-17 12:15 | PTTR_ITS ---
Date of service: 09/17/23 Time of Service: 09:49 PT Notes Visit Reasons: Acute hyponatremia, R femoral fracture s/p ORIF, p Inpatient Physical Therapy Treatment Note [facility] Date: 09/17/23 PRECAUTIONS: Fall, standard, activity as tolerated. SUBJECTIVE: Patient indicates that she is frustrated by her slow progress, frustrated that she fell at home, frustrated at her multiple sclerosis disease progress making her recovery more difficult and complicated. OBJECTIVE: Supine in bed, just got washed up, hip wedge pillow in place. External PureWick urine collection system in place. Agreeable to therapy. ? PAIN: Yes, right hip VITALS: monitored by nursing staff. Therapeutic Activities ([id number]): Direct one-on-one instruction in dynamic activities to improve functional performance. ? BED MOBILITY/TRANSFERS? Rolling L/R: modified independent with bilateral side rails. Patient does not have a hospital bed at home. Supine-sit: modified independent with bilateral side rails. patient does not have a hospital bed at home. ? Sit-supine: modified independent with bilateral side rails. patient does not have a hospital bed at home. ? Sit-stand x4: Min assist of one to block foot from sliding.? Stand-sit x4: min assist of one to block foot from sliding ? Bed-Chair x1: Min assist of one at gait belt to ensure safety, verbal cues, block foot ? Chair-bed x1: Min assist of one at gait belt to ensure safety, verbal cues, block foot Provided skilled cues and instruction on performance and technique throughout. ? Therapeutic Exercises ([id number]): Direct one-on-one instruction in therapeutic exercises to develop strength, endurance, range of motion and flexibility. ? Exercises: * LAQ's x10 * heel-toe raises x10 * seated march, LLE only x10 * Glute sets x10 reps x5 second hold. Verbal cues to ensure appropriate form and muscle recruitment. Provided skilled instruction in proper exercise performance Provided skilled manual cues to facilitate proper muscle recruitment and/or form. ASSESSMENT:? Patient tolerates therapy well, no report of pain, dyspnea, or fatigue. Patient performs stand pivot transfer well, RN notified that patient may begin using bedside commode. PLAN: Continue global strengthening per plan of care until patient is medically cleared for discharge and has a safe discharge plan. TREATMENT CODE/TIME: 26 minutes beginning at 9:49 and 16 minutes beginning at 15:28
[2023-09-17] MEDS: Timolol 0.5% 5 ML BTL OU (12:20)
[2023-09-17 14:59] VITALS: BP 115/62; PULSE 73; RESP 17; TEMP 37.2; O2SAT 96
--- NOTE | 2023-09-17 16:41 | OCONE_ITS ---
Date of service: 09/17/23 Time of Service: 12:41 History of Present Illness History of Present Illness Chief Complaint: Right periprosthetic hip fracture Narrative: Steffi is a 58-year-old female who has been transferred to [facility] for continued recovery about her right hip. She was seen initially by me for a subacute intertrochanteric hip fracture on the right side. This was treated with a short nail. She was doing well and was at home. However, she tripped and fell when she was in the bathroom landing on the right side, resulting in a comminuted fracture around the previous nail. Revision intervention nail fixation was performed but she then demonstrated subsequent fracture and failure of the femoral nail component proximally. This led to transfer to [facility] right revision hip arthroplasty with revision of the fracture was performed. She did well from this. She struggled with mobilization and was thus transferred to swing bed status at [facility]. On admission she was found to have significant hyponatremia after being restarted on her desmopressin. This reversed itself overnight. Steffi reports that she continues have some pain about the right leg. However, it is controlled. She has been able to mobilize although minimally. She is toe-touch weightbearing currently. She has completed her postoperative extended antibiotic course. She has had prophylactic dressings placed to both feet without known source. She denies fevers or chills. She has had no issues with the wound proximally. She had a small amount of drainage from the very distal wound of the right thigh. No other concerning features for infection. Consults Consult date: 09/17/23 Requesting physician: Kristin Solorio Consult Reason Complex right hip fracture status post revision ORIF and hip replacement Assessment and Plan Assessment and plan (1) Right femoral fracture: Status: Acute Assessment and plan: Steffi is a 58-year-old who is recovering from her right complex hip fracture with resultant fracture fixation and arthroplasty. She seems to be doing well. She will continue to be touchdown weightbearing on the right lower extremity. Continue progress should be made towards transfers. She has completed her postoperative antibiotic course. She should continue DVT prophylaxis. I will discuss the case with her surgeon at [facility], Dr. Eng, to ensure that we are doing all postoperative requirements. She should continue with an abductor pillow while in bed. Posterior hip precautions. Qualifiers: Encounter type: sequela Femur location: unspecified portion of femur F racture type: closed Fracture morphology: other fracture Qualified Code(s): S 72.8X1S - Other fracture of right femur, sequela Review of Systems All systems reviewed & are unremarkable except as noted in HPI and below PFSH All Active Problems Discharge planning issues (Acute) DVT prophylaxis (Acute) Depression (Chronic) Secondary progressive multiple sclerosis (Acute) Hypertension (Chronic) Urinary incontinence (Acute) Right femoral fracture (Acute) Thrombocytosis (Acute) Hypoalbuminemia (Acute) Hyponatremia (Acute) Anemia due to blood loss (Acute) Closed right femoral fracture (Acute) Closed comminuted intertrochanteric fracture of right femur (Acute ~06/2023) Open reduction and intramedullary fixation DOS: 07/10/2023 Foot pain (Acute) Arthritis (Acute) Pes planus (Acute) Anemia (Acute) Essential hypertension (Chronic 09/02/13) Foot drop, left (Acute 05/17/15) Multiple sclerosis (Chronic 1991) Neurogenic bladder (Acute 01/13/16) Spasticity (Chronic 05/17/15) Synovial cyst of popliteal space (Acute) Urge incontinence of urine (Acute 08/08/12) Memory loss (Chronic) Depression (Chronic) Fatigue (Acute) Acquired pes planus of right foot (Chronic) chronic pain in foot; possible surgery Medical History Murmur, cardiac Closed subcapital fracture of left femur S/P L BELEN --DOS 03/15/22 Spinal stenosis of lumbar region with radiculopathy GERD (gastroesophageal reflux disease) Left carpal tunnel syndrome managed non-surgically Optic neuritis Surgical History Status post lumbar laminectomy (~07/2022) 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 S/P ovarian cystectomy S/P tonsillectomy and adenoidectomy S/P left knee arthroscopy partial medial meniscectomy, L Status post bunionectomy Status post myringotomy with insertion of tube Family History Mother , age 76 Diabetes Essential hypertension Asthma Father , age 55 Substance abuse Essential hypertension Hypercholesterolemia Alcohol abuse Brother Alcohol abuse Substance abuse Maternal Grandfather , age 68 Essential hypertension Hyperlipidemia Stroke Liver cancer Paternal Grandfather , age 78 Stomach cancer Maternal Grandmother , age 97 Diabetes Essential hypertension Hyperlipidemia Paternal Grandmother , age 76 Dementia Daughter No problems noted. Social History Smoking/Tobacco Use Status: Former Tobacco Use tobacco type: cigarettes Quit Date: 11/12/07 Tobacco: How many years used: 12 Second Hand Exposure: Yes Smoking risk assessment performed?: Yes Alcohol Intake: current Alcohol Intake frequency: a few times a month Alcohol type: beer, wine and hard liquor Drug use: Daily Substance use type: marijuana Caregiver/Support person: No Household members: spouse Housing: house Number of Children: 1 Communication Needs: None Do you need help understanding health information?: Never current occupation: [employer] 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 Pets and animals: Yes Pets and animals: cat(s) Sexually active: Yes Do you think of yourself as: straight/heterosexual Current gender identity: female What is your relationship status?: How often do you talk on the phone with friends or family?: never How often do you get together with friends or relatives?: never How often do you attend congregational or church services?: decline to answer Do you belong to any clubs or organized social groups?: no Panel score (0-1 are the most socially isolated patients): 1 What type of physical activity do you participate in: bicycling Duration: 15-30 minutes/day Frequency: 3-4 times per week Veda/Shinto: None Special veda needs: No Seatbelt use: always Helmet use: Yes Helmet use: sometimes Drive intox or ride w/intox fire 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 Exam Extrem Other: Evaluation of the right leg shows some swelling about the right thigh. No significant signs of infection. No ecchymosis. Wound appears healed. There is a small amount of drainage from the very distal wound, which was a screw entry point. No signs of infection. No significant pain with hip internal and external rotation. She has intact ankle dorsiflexion and plantarflexion as well is great toe extension and flexion although with notable pes planovalgus deformity. Sensation intact light touch over the deep and superficial peroneal nerve and tibial nerve. Results Last Vital Signs Temp 37.2 C 09/17/23 14:59 Pulse 73 09/17/23 14:59 Resp 17 09/17/23 14:59 BP 115/62 09/17/23 14:59 Pulse Ox 96 09/17/23 14:59 Labs 09/17/23 06:05 09/17/23 06:05 Labs: Laboratory Results - last 24 hr 09/16/23 09/17/23 18:30 06:05 WBC 7.87 RBC 3.11 L Hgb 9.9 L Hct 30.6 L MCV 98 H MCH 31.8 MCHC 32.4 RDW 16.3 H Plt Count 609 H MPV 8.1 Immature Gran % 0.9 Neutrophils % 59.9 Lymphocytes % 22.6 Monocytes % 12.7 Eosinophils % 3.0 Basophils % 0.9 Nucleated RBC % 0.0 Absolute Neutrophils 4.71 Absolute Lymphocytes 1.78 Absolute Monocytes 1.00 H Absolute Eosinophils 0.24 Absolute Basophils 0.07 Sodium 129 L 129 L Potassium 4.3 Chloride 94 L Carbon Dioxide 28.6 Anion Gap 6.4 BUN 15 Creatinine 0.5 L Est GFR (CKD-EPI 2020) 109.33 Glucose 106 Calcium 9.3 Magnesium 1.9
--- NOTE | 2023-09-17 17:12 | PGE_ITS ---
Date of Service Date of service: 09/17/23 Time of Service: 17:18 Assessment and Plan Assessment and plan (1) Hyponatremia: Status: Acute Assessment and plan: Sodium is up to 129 from 127 yesterday afternoon. My plan is not to resume desmopressin. Continue to monitor sodiums. If above 130 tomorrow, can transition to swing bed status again. The patient was taking 0.2 mg of desmopression qhs at home, likely making the dose she received at [facility] excessive. I will make a decision as to whether to resume it after I have the noon-time sodium result. Continue to monitor neurochecks. (2) Right femoral fracture: Status: Acute Assessment and plan: S/p ORIF [facility]. Continue PT, OT, wound care Seen by orthopedics today who left weight bearing recommendations. Continue Xarelto 10 mg daily through 09/28/2023, per ortho Qualifiers: Encounter type: sequela Femur location: unspecified portion of femur Fracture type: closed Fracture morphology: other fracture Qualified Code(s): S72.8X1S - Other fracture of right femur, sequela (3) Urinary incontinence: Status: Acute Assessment and plan: Hold desmopressin Consider bladder scans Qualifiers: Urinary Incontinence type: other incontinence Qualified Code(s): N39.498 - Other specified urinary incontinence (4) Hypertension: Status: Chronic Assessment and plan: Continue spironolactone, Toprol-XL. Hold lisinopril due to hyponatremia. Qualifiers: Hypertension type: primary hypertension Qualified Code(s): I10 - Essential (primary) hypertension (5) Secondary progressive multiple sclerosis: Status: Acute Assessment and plan: Continue duloxetine, baclofen, Wellbutrin, Provigil. PT/OT consulted (6) Anemia: Status: Acute Assessment and plan: H/H stable. No active bleeding. Qualifiers: Anemia type: other cause Other causes of anemia: acute posthemorrhagic Qualified Code(s): D62 - Acute posthemorrhagic anemia (7) DVT prophylaxis: Status: Acute Assessment and plan: rivaroxaban (being used specifically for DVT ppx) (8) Discharge planning issues: Status: Acute Assessment and plan: Full code. Anticipate transfer back to swing bed level 1 tomorrow Subjective Subjective Interval history since last seen: Ms Coker feels completely back to normal. Her vision is back to normal. We discussed initiation of dronabinol at [facility] - this was for her spasticity (would normally use marijuana at home to help with that between her doses of baclofen). Denies headache, dizziness, CP, SOB, n. Pain is controlled. We discussed that it would probably be better for her to be off of desmopressin definitively at this point. She agreed and states that she was trying to wean herself off of it anyway. Exam Narrative Exam Narrative: General: A pleasant middle-aged female who is A&Ox3, laying comfortably in bed, wearing glasses Neurological: A&Ox3, 5/5 strength in BUEs, L foot drop, R foot flattened ( baseline HEENT: EOMI, MMM Cardiovascular: RRR Lungs: CTAB Gastrointestinal: soft, nontender, nondistended Extremities: heel dressings in place, no edema, clubbing, cyanosis, 2+ pedal pulses B, L foot drop, R foot flat Objective Last Vital Signs Temp 37.2 C 09/17/23 14:59 Pulse 73 09/17/23 14:59 Resp 17 09/17/23 14:59 BP 115/62 09/17/23 14:59 Pulse Ox 96 09/17/23 14:59 Laboratory Results - last 24 hr 09/16/23 09/17/23 18:30 06:05 WBC 7.87 RBC 3.11 L Hgb 9.9 L Hct 30.6 L MCV 98 H MCH 31.8 MCHC 32.4 RDW 16.3 H Plt Count 609 H MPV 8.1 Immature Gran % 0.9 Neutrophils % 59.9 Lymphocytes % 22.6 Monocytes % 12.7 Eosinophils % 3.0 Basophils % 0.9 Nucleated RBC % 0.0 Absolute Neutrophils 4.71 Absolute Lymphocytes 1.78 Absolute Monocytes 1.00 H Absolute Eosinophils 0.24 Absolute Basophils 0.07 Sodium 129 L 129 L Potassium 4.3 Chloride 94 L Carbon Dioxide 28.6 Anion Gap 6.4 BUN 15 Creatinine 0.5 L Est GFR (CKD-EPI 2020) 109.33 Glucose 106 Calcium 9.3 Magnesium 1.9 Time Spent with Patient Time Spent with Patient: 25-34 minutes Time was spent: preparing to see the patient(eg.review tests), obtaining and/or reviewing separately otained hiistory, ordering medications,tests, procedures, referring, communicating with other health resident care technician, indepentently interpreting results, counseling the patient and care coordination
[2023-09-17] MEDS: Fluticasone NASAL SPRAY 16 GM BTL NS (20:10)
[2023-09-17] MEDS: DULoxetine 30 MG CAP 60 MG PO (21:46)
[2023-09-17] MEDS: Melatonin 3 MG TAB 6 MG PO (21:46)
[2023-09-18 04:22] VITALS: BP 118/64; PULSE 68; RESP 17; TEMP 37.2; O2SAT 96
[2023-09-18 06:58] LABS: Anion Gap 6.8 mmol/L (3-11); BUN 11 mg/dL (7-18); CO2 30.2 mmol/L (21.0-32.0); CREATININE 0.5 mg/dL (0.55-1.02); Calcium 9.3 mg/dL (8.5-10.1); Chloride 95 mmol/L (98-107); Estimated GFR 109.33 (mL/min/1.73m2); Glucose 107 mg/dL (74-106); Potassium 4.1 mmol/L (3.5-5.1); Sodium 132 mmol/L (136-145)
[2023-09-18 07:19] VITALS: BP 102/65; PULSE 69; RESP 17; TEMP 36.5; O2SAT 95
[2023-09-18] MEDS: Gabapentin 300 MG CAP PO ×2 (08:30→13:26)
[2023-09-18] MEDS: Pantoprazole 40 MG TABCR PO (08:31)
[2023-09-18] MEDS: Ferrous Sulfate 325 MG TAB PO (08:31)
[2023-09-18] MEDS: Calcium 600mg/Vit D 200U TAB 1 TAB PO (08:31)
[2023-09-18] MEDS: Spironolactone 50 MG TAB PO (08:31)
[2023-09-18] MEDS: Baclofen 10 MG TAB 40 MG PO ×2 (08:31→13:26)
[2023-09-18] MEDS: Rivaroxaban 10 MG TABLET PO (08:31)
[2023-09-18] MEDS: Modafinil 100 MG TAB 200 MG PO (08:32)
[2023-09-18] MEDS: Metoprolol CR 50 MG TABCR PO (08:32)
[2023-09-18] MEDS: buPROPion-XL 150 MG TABCR 300 MG PO (08:33)
[2023-09-18] MEDS: Fluticasone NASAL SPRAY 16 GM BTL NS (08:33)
[2023-09-18] MEDS: Timolol 0.5% 5 ML BTL OU (08:34)
[2023-09-18 08:38] VITALS: BP 120/82
--- NOTE | 2023-09-18 10:07 | WOUNDCONS_ITS ---
Date of service: 09/18/23 Time of Service: 09:00 Wound Initial Evaluation Narrative Narrative: Patient is a 58 YOF. She has been here swing bed awaiting a bed at short term rehab, D/T two recent fractures of the right femur and hip. While here she became hyponatremic , and was transferred to the ICU for treatment. Patient has an abductor pillow placed, and has not been very active, spending the majority time in bed. While she has no open wounds, Both heels have become boggy from resting on the bed surface and have become at risk for potential DTI/ or PI. Patient is alert and oriented and gives this nurse complete history, and expresses her concerns. Patient signs consent for wound consult. H&P. labs and other pertinent information was reviewed. Body Four View: 2 1. Boggy heel 2. Boggy heel Wound right Heel: Wound Type: Other (area of risk,boggy) Wound General Appearance: Well Approximated Wound Bed Greatest Portion: Other (intact) Left heel: Wound Type: Other (Boggy heel) Wound General Appearance: Other (at risk, but intact) Circulation, Sensation, Motion Edema Degree: Other (none) Peripheral Pulse Strength: Normal Capillary Refill: Less than 3 seconds Sensation Description: Within Normal Limits Skin Temperature: Warm Skin Color: Normal [id number] Comment:: Not applicable Pain Pain Level: 0 Wound Summary Wound Summary: Patient who will need a period of rehab for her injury. She is still in an abductor pillow, heels have been on the bed and need to be floated and protected to prevent breakdown of the skin. Patient is fully alert and cooperative, she demonstrates to this nurse, that she is repositioning her sacrum and buttocks to prevent breakdown there. No photos were taken as there is not an open wound to document Photo Photo: na Treatment/Dressing Change Cleanse With: Other (soap and water) Dressing Types: Other (Optiloc heel dressing) Recomendation Recomendation:: Both heels. Wash with Soap and water. Apply Optiloc heel dressing to both heels. Float heels off bedding using a towel. Remove the towel for 1 hour each shift, and assess skin for breakdown. Change Optiloc every 3 days. Physcian/Nurse Practioner Notified: Yes Treatment Time Time Total Time Spent with Patient: 1 hour Patient Will be Seen Weekly Treatment: daily For: For:: 1 week
[2023-09-18 11:17] VITALS: BP 110/66; PULSE 74; RESP 17; TEMP 36.9; O2SAT 93
[2023-09-18] MEDS: Dronabinol 2.5 MG CAP PO ×2 (11:46→16:12)
--- NOTE | 2023-09-18 14:55 | PTTR_ITS ---
Date of service: 09/18/23 Time of Service: 10:38 PT Notes Visit Reasons: Acute hyponatremia, R femoral fracture s/p ORIF, p Inpatient Physical Therapy Treatment Note [facility] Date: 09/18/23 PRECAUTIONS: Fall, standard, activity as tolerated. TOUCH DOWN WB ONLY ON RLE. SUBJECTIVE: Patient reports feeling good, had a wound consult this AM to ensure heels do not incur skin breakdown due to abduction wedge pillow. OBJECTIVE: Supine in bed, wedge pillow in place with towel folded under each calf muscle to float heels. Agreeable to therapy. AFTERNOON: Patient sitting up in recliner, agreeable to therapy. ? PAIN: none reported. VITALS: monitored by nursing staff Therapeutic Activities ([id number]): Direct one-on-one instruction in dynamic activities to improve functional performance. ? BED MOBILITY/TRANSFERS? Rolling L/R: Modified independent with bilateral side rails. Patient does not have hospital bed at home. Supine-sit: Modified independent with bilateral side rails. Patient does not have hospital bed at home. ? Sit-supine: Modified independent with bilateral side rails. Patient does not have hospital bed at home. ? Sit-stand: x5. Min assist to block foot from sliding forward. ? Stand-sit: x5. Min assist to block foot from sliding forward. ? Bed-Chair: x1. CGA. ? Chair-bed: x1. CGA. Provided skilled cues and instruction on performance and technique throughout. ? Therapeutic Exercises ([id number]): Direct one-on-one instruction in therapeutic exercises to develop strength, endurance, range of motion and flexibility. ? Exercises: * Leg press vs green theraband x10 * hamstring pulls vs green theraband x10 * LAQ's vs green theraband x10 * hip abduction vs green theraband x10 Verbal and tactile cues for appropriate velocity and muscle recruitment. Provided skilled instruction in proper exercise performance Provided skilled manual cues to facilitate proper muscle recruitment and/or form. ASSESSMENT:? Patient reports fatigue after therapy today, feels like we did a lot. PLAN: Continue global strengthening per plan of care until patient is medically cleared for discharge. Introduce blue theraband for leg press. Check in with patient tomorrow to ensure that we did not do too much today, as recovery will be complicated by patient's MS. TREATMENT CODE/TIME: 21 minutes beginning at 10:38 and 13 minutes beginning at 13:05
[2023-09-18 15:04] VITALS: BP 104/64; PULSE 72; RESP 17; TEMP 37.3; O2SAT 96
--- NOTE | 2023-09-18 16:01 | PDOC.CMPRO ---
Date of service: 09/18/23 Time of Service: 16:01 Care Management Progress Note Progress Note Text Progress Note Text: Steffi will transition to Swing Bed level 1 when medically ready, per MD.
--- NOTE | 2023-09-18 16:22 | DSE_ITS ---
Date of service: 09/18/23 Time of Service: 16:23 DS: Diagnosis Discharge Diagnosis (1) Hyponatremia: Status: Acute (2) Right femoral fracture: Status: Acute (3) Urinary incontinence: Status: Acute (4) Hypertension: Status: Chronic (5) Secondary progressive multiple sclerosis: Status: Acute (6) Anemia: Status: Acute Discharge Plan Disposition Patient Disposition: Swing Bed(Skilled,SB1) Condition: Improving Discharge Details Reason For Visit: Acute hyponatremia, R femoral fracture s/p ORIF, p Admit Date/Time: 09/15/23 13:42 Admit Provider: Kristin Solorio Attending Provider: Kristin Solorio Primary Care Provider: Elizabeth Nunn Hospital Course Hospital Course: Ms Coker is a 58 year old female with PMHx of MS, 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 The patient was admitted to medical surgical status and placed in the ICU. Her desmopressin was held and she was started on hypertonic saline, of which she was supposed to receive only 100 cc, but ended up receiving more. Her sodium went up to 131 the following morning, then drifted down to 127 on its own. Desmopressin was definitively discontinued as the trevor ent has had issues with hyponatremia on it. The patient did have symptoms with her hyponatremia - clouded vision and difficulty reading. This has gotten significantly better and continues to improve, but some difficulty with reading (words occasionally disappearing) is still there. The sodiums have stabilized. The patient has no symptoms otherwise. She was evaluated by orthopedics and is felt safe for touchdown weightbearing to [facility]. She is being placed back in SB1 today for continued work with physical therapy. Care for patient as well as completion of her transfer summary on day of transfer too 45 minutes. Home Meds and New Rx's Prescriptions: No Action melatonin 3 mg tablet 6 mg PO HS turmeric root extract 500 mg capsule 500 mg PO DAILY spironolactone 50 mg tablet 50 mg PO DAILY Qty: 90 1RF bupropion HCl 300 mg tablet extended release 24 hr 300 mg PO QAM Qty: 90 1RF lisinopril 40 mg tablet 40 mg PO DAILY Qty: 90 3RF timolol maleate (PF) [Timoptic Ocudose (PF)] 1 EACH dropperette 1 drp Ophthalmic DAILY Rx Instructions: BOTH EYES B Complex Plus Vitamin C 1 EACH capsule 1 cap PO DAILY Probiotic and Acidophilus 1 EACH capsule 1 cap PO DAILY pedi multivit 17-iron fumarate 1 EACH tablet,chewable 2 tab PO DAILY calcium carbonate-vitamin D3 1 EACH tablet 1 ea PO DAILY glucosamine sulf-chondroitinSA 1 EACH capsule 1 ea PO BID cholecalciferol (vitamin D3) 5,000 UNIT tablet 5,000 unit PO DAILY omeprazole 20 mg capsule,delayed release(DR/EC) 20 mg PO DAILY Qty: 90 3RF baclofen 20 mg tablet 40 mg PO TID Qty: 540 3RF modafinil [Provigil] 200 mg tablet 200 mg PO BID Qty: 180 1RF amlodipine 5 mg tablet 5 mg PO DAILY Qty: 90 3RF dalfampridine [Ampyra] 10 mg tablet extended release 12 hr 10 mg PO BID Qty: 180 3RF duloxetine 60 mg capsule,delayed release(DR/EC) 60 mg PO DAILY Qty: 90 3RF desmopressin 0.2 mg tablet 0.2 mg PO HS Patient Comments: on hold here currently metoprolol succinate 50 mg tablet extended release 24 hr 50 mg PO DAILY timolol maleate 0.5 % drops 1 drp ophthalmic (eye) DAILY Patient Comments: INSTILL 1 DROP INTO BOTH EYES EVERY MORNING magnesium 500 mg tablet 500 mg PO DAILY fluticasone propionate 50 mcg/actuation [place],Suspension 1 spray INTRANASAL BID Rx Instructions: administer into each nostril cyclobenzaprine 10 mg Tablet 5 mg PO TID PRN PRNQty: 0 0RF acetaminophen 325 mg Tablet 650 mg PO Q6H PRN PRNQty: 0 0RF diphenhydramine HCl 25 mg Capsule 25 mg PO HS PRN PRNQty: 0 0RF sodium chloride 0.9 % (flush) [BD PosiFlush Normal Saline 0.9] Syringe 5 ml IVP PRN PRNQty: 0 0RF metoprolol tartrate 25 mg Tablet 25 mg PO BID PRNQty: 0 0RF polyethylene glycol 3350 17 gram Powder In Packet 17 - 34 g PO BID PRN PRN (Reason: Constipation) Qty: 0 0RF Phlexy-Vits 15 mg- 700 mcg Powder In Packet 1 packet PO TID Qty: 0 0RF Discharge Instructions Activity:: Activity as Tolerated Equipment/Supplies:: No Equipment Needed Diet:: As Tolerated Discharge Orders Discharge Orders: Discharge Order (Routine); Ordered 09/18/23 Ordered By: Kristin Solorio DS: Summary Time Spent with Patient providing and/or coordinating discharge services: Greater than 30 minutes Status at Discharge Functional status at discharge: uses cane/walker Overall status at discharge: patient is progressing back to baseline Mental Status: mental status grossly normal Speech and Movement: speech and movement normal Mood: congruent mood Affect: normal affect Exam Narrative Exam Narrative: General: A pleasant middle-aged female who is A&Ox3, laying comfortably in bed, wearing glasses Neurological: A&Ox3, 5/5 strength in BUEs, L foot drop, R foot flattened (baseline HEENT: EOMI, MMM Cardiovascular: RRR Lungs: CTAB Gastrointestinal: soft, nontender, nondistended Extremities: heel dressings in place, no edema, clubbing, cyanosis, 2+ pedal pulses B, L foot drop, R foot flat Psych Mental Status: mental status grossly normal Speech and Movement: speech and movement normal Mood: congruent mood Affect: normal affect DS: Data Vitals/I&O Vitals and I&O: Vital Signs Temperature 37.3 C 09/18/23 15:04 Temperature Source Tympanic 09/18/23 15:04 Pulse 72 09/18/23 15:04 Pulse Rhythm Regular 09/18/23 13:30 Pulse 71 09/16/23 04:03 Respiratory Rate 17 09/18/23 15:04 Respiratory Effort Normal 09/18/23 13:30 Respiratory Depth Normal 09/18/23 13:30 Respiratory Pattern Normal 09/18/23 13:30 Blood Pressure 104/64 09/18/23 15:04 Blood Pressure Mean 87 09/16/23 08:32 Blood Pressure Position Supine 09/16/23 08:32 Pulse Oximetry 96 09/18/23 15:04 Oxygen Delivery Method Room Air 09/18/23 15:04 Oxygen Flow Rate 0 09/18/23 15:04 Pain Level 0 09/18/23 15:04 Comment Nurse notified. 09/16/23 20:19 Intake & Output 09/17/23 09/18/23 09/18/23 23:59 11:59 23:59 Intake Total 490 / 1240 Output Total 850 / 1850 3500 / 3500 Balance -360 / -610 -3500 / -3500 Weight 62.324 kg Intake: Oral 490 / 1240 Output: Urine 850 / 1850 3500 / 3500 Other: Urine Color Yellow Yellow Urine Appearance Clear Clear Urine Odor None Comment Purewick. Purewick. Stool Size Small Stool Characteristics Formed Data Completed and Pending Labs on day of discharge: Labs from last 24 hours 09/18/23 06:16 Sodium 132 L Potassium 4.1 Chloride 95 L Carbon Dioxide 30.2 Anion Gap 6.8 BUN 11 Creatinine 0.5 L Est GFR (CKD-EPI 2020) 109.33 Glucose 107 H Calcium 9.3 Magnesium 2.0 PFSH All Active Problems Discharge planning issues (Acute) DVT prophylaxis (Acute) Depression (Chronic) Secondary progressive multiple sclerosis (Acute) Hypertension (Chronic) Urinary incontinence (Acute) Right femoral fracture (Acute) Thrombocytosis (Acute) Hypoalbuminemia (Acute) Hyponatremia (Acute) Anemia due to blood loss (Acute) Closed right femoral fracture (Acute) Closed comminuted intertrochanteric fracture of right femur (Acute ~06/2023) Open reduction and intramedullary fixation DOS: 07/10/2023 Foot pain (Acute) Arthritis (Acute) Pes planus (Acute) Anemia (Acute) Essential hypertension (Chronic 09/02/13) Foot drop, left (Acute 05/17/15) Multiple sclerosis (Chronic 1991) Neurogenic bladder (Acute 01/13/16) Spasticity (Chronic 05/17/15) Synovial cyst of popliteal space (Acute) Urge incontinence of urine (Acute 08/08/12) Memory loss (Chronic) Depression (Chronic) Fatigue (Acute) Acquired pes planus of right foot (Chronic) chronic pain in foot; possible surgery Medical History Murmur, cardiac Closed subcapital fracture of left femur S/P L BELEN --DOS 03/15/22 Spinal stenosis of lumbar region with radiculopathy GERD (gastroesophageal reflux disease) Left carpal tunnel syndrome managed non-surgically Optic neuritis Surgical History Status post lumbar laminectomy (~07/2022) 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 S/P ovarian cystectomy S/P tonsillectomy and adenoidectomy S/P left knee arthroscopy partial medial meniscectomy, L Status post bunionectomy Status post myringotomy with insertion of tube Family History Mother , age 76 Diabetes Essential hypertension Asthma Father , age 55 Substance abuse Essential hypertension Hypercholesterolemia Alcohol abuse Brother Alcohol abuse Substance abuse Maternal Grandfather , age 68 Essential hypertension Hyperlipidemia Stroke Liver cancer Paternal Grandfather , age 78 Stomach cancer Maternal Grandmother , age 97 Diabetes Essential hypertension Hyperlipidemia Paternal Grandmother , age 76 Dementia Daughter No problems noted. Social History Smoking/Tobacco Use Status: Former Tobacco Use tobacco type: cigarettes Quit Date: 11/12/07 Tobacco: How many years used: 12 Second Hand Exposure: Yes Smoking risk assessment performed?: Yes Alcohol Intake: current Alcohol Intake frequency: a few times a month Alcohol type: beer, wine and hard liquor Drug use: Daily Substance use type: marijuana Caregiver/Support person: No Household members: spouse Housing: house Number of Children: 1 Communication Needs: None Do you need help understanding health information?: Never current occupation: 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 Pets and animals: Yes Pets and animals: cat(s) Sexually active: Yes Do you think of yourself as: straight/heterosexual Current gender identity: female What is your relationship status?: How often do you talk on the phone with friends or family?: never How often do you get together with friends or relatives?: never How often do you attend catholic or mormonism services?: decline to answer Do you belong to any clubs or organized social groups?: no Panel score (0-1 are the most socially isolated patients): 1 What type of physical activity do you participate in: bicycling Duration: 15-30 minutes/day Frequency: 3-4 times per week Veda/Catholic: None Special veda needs: No Seatbelt use: always Helmet use: Yes Helmet use: sometimes Drive intox or ride w/intox otr refrigerated cdl 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 Time Spent with Patient Time Spent with Patient: 45-69 minutes Time was spent: preparing to see the patient(eg.review tests), obtaining and/or reviewing separately otained hiistory, ordering medications,tests, procedures, referring, communicating with other health personal care service provider, indepentently interpreting results, counseling the patient and care coordination
--- NOTE | 2023-09-19 08:30 | OT.INIE ---
Occupational Therapy Notes Inpatient Occupational Therapy Evaluation Date: 09/19/23 Referring Doctor:Kristin Solorio MD OT Orders: Non Urgent SWG B1 Eval Precautions: Fall, Standard, Hip precautions PATIENT PROFILE/ADMITTING DIAGNOSIS: Pt is a 58 year old female who was transferred back to [facility] she is here with the following dx of acute femur fracture distally recently placed intramedullary nail status post repeat ORIF on 08/18/2023 and subsequent course complicated by further community fracture and hardware displacement who was transferred to [facility] for revision procedure of her right hip on 08/29/2023 and is now being transferred back to [facility]. Past Medical History: All Active Problems Discharge planning issues (Acute) DVT prophylaxis (Acute) Depression (Chronic) Secondary progressive multiple sclerosis (Acute) Hypertension (Chronic) Urinary incontinence (Acute) Right femoral fracture (Acute) Thrombocytosis (Acute) Hypoalbuminemia (Acute) Hyponatremia (Acute) Anemia due to blood loss (Acute) Closed right femoral fracture (Acute) Closed comminuted intertrochanteric fracture of right femur (Acute ~06/2023) Open reduction and intramedullary fixation DOS: 07/10/2023Foot pain (Acute) Arthritis (Acute) Pes planus (Acute) Anemia (Acute) Essential hypertension (Chronic 09/02/13) Foot drop, left (Acute 05/17/15) Multiple sclerosis (Chronic 1991) Neurogenic bladder (Acute 01/13/16) Spasticity (Chronic 05/17/15) Synovial cyst of popliteal space (Acute) Urge incontinence of urine (Acute 08/08/12) Memory loss (Chronic) Depression (Chronic) Fatigue (Acute) Acquired pes planus of right foot (Chronic) chronic pain in foot; possible surgery Medical History Murmur, cardiac Closed subcapital fracture of left femur S/P L BELEN --DOS 03/15/22 Spinal stenosis of lumbar region with radiculopathy GERD (gastroesophageal reflux disease) Left carpal tunnel syndrome managed non-surgicallyOptic neuritis Surgical History Status post lumbar laminectomy (~07/2022) 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 S/P ovarian cystectomy S/P tonsillectomy and adenoidectomy S/P left knee arthroscopy partial medial meniscectomy, LStatus post bunionectomy Status post myringotomy with insertion of tube Social History/Home Situation: Pt lives in a trailer with her significant other. She notes that prior to admission she was (I) in all ADLs/IADLs. She has a ramp to enter her home and walk in shower with seat and grab bars. SUBJECTIVE: Pt states that she is doing well, she notes that she is hoping to return home but notes that she is limited d/t to her precautions on weight bearing. OBJECTIVE: General Observation: Pleasant, IV in (L) UE Mental Status: A&Ox4 Pain: pain in hip ROM: RUE AROM WFL L UE AROM WFL STRENGTH: RUE 4+/5 throughout LUE 4+/5 throughout FUNCTIONAL MOBILITY/ADLS: Self Care Training [id number]: OT educated and trained pt in adpative equipment to maintain hip precautions including racket stringer, dressing stick, long handled sponge, sock aide, elastic shoe laces with vc and demonstration. EATING seayted in bed (I) BALANCE: Static sitting Normal Dynamic Sitting Normal Static Standing Fair-good Dynamic Standing Fair-Good INFORMED CONSENT/EDUCATION: Pt instructed in purpose of OT Consult and plan of care. ASSESSMENT: Patient is a 58-year-old female referred to occupational therapy services with diagnosis of acute femur fracture distally recently placed intramedullary nail status post repeat ORIF on 08/18/2023 and subsequent course complicated by further community fracture and hardware displacement who was transferred to [facility] for revision procedure of her right hip on 08/29/2023 and is now being transferred back to [facility]. Patient presents with clinical signs and symptoms consistent with dx, as demonstrated by the following impairment level findings/functional limitations: Impairments in ADL/IDL and leisure activities, pain in hip, decreased functional mobility, decreased functional activity tolerance. Patient is assessed as a Moderate [id number] complexity based on the following: History: see above Examination: see functional limitations as noted above Presentation: evolving Decision Making: moderate GOALS Goals x1 week 1. Transfers (I) 2. Dressing mod (I) in seated position 3. Bathing Mod (I) LE , (I) UE 4. Toileting on toilet (I) 5. Eating (I) PLAN OF CARE/TREATMENT PLAN: 1x/day, 3-5 days/ week x 1week Initiate Occupational Therapy Services for bathing, dressing, grooming, toileting, eating, transfer training. DISCHARGE RECOMMENDATIONS Home with services when medically cleared per MD. TREATMENT TIME/MINUTES/CODES [id number], [id number], 25 minutes Angelica Mcmahon OTR/L [facility] [place], [place]
== END 2023-09-18 20:03 | disposition swing bed (61) | DRG 641 ==
LOC: ICU 09-16 10:38 → MS 09-16 11:04
PROVIDERS: Admitting Provider Internal Medicine; PCP Family Medicine; Visit Provider Internal Medicine
DX: E87.1 Hypo-osmolality and hyponatremia (principal); D62 Acute posthemorrhagic anemia; S72.8X1D Other fracture of right femur, subsequent encounter for closed fracture with routine healing; N39.498 Other specified urinary incontinence; I10 Essential (primary) hypertension; G35 Multiple sclerosis; Z79.899 Other long term (current) drug therapy; F32.A Depression, unspecified; N31.9 Neuromuscular dysfunction of bladder, unspecified; N32.81 Overactive bladder; D75.839 Thrombocytosis, unspecified; M21.372 Foot drop, left foot; R41.3 Other amnesia; R53.83 Other fatigue; E88.09 Other disorders of plasma-protein metabolism, not elsewhere classified; Z96.642 Presence of left artificial hip joint; Z87.891 Personal history of nicotine dependence; F12.90 Cannabis use, unspecified, uncomplicated; W01.0XXD Fall on same level from slipping, tripping and stumbling without subsequent striking against object, subsequent encounter; T38.895A Adverse effect of other hormones and synthetic substitutes, initial encounter; H53.8 Other visual disturbances
CPT/HCPCS: 00123; 36410; 36415; 80048; 97110; 97162; 97530; 99223; 83735; 84295; 85025; 99232; 99239; 99291

== ENCOUNTER 2023-09-18 16:23 | Inpatient (IN) | payer MEDICARE, SELFPAY ==
--- NOTE | 2023-09-18 16:26 | HPE_ITS ---
Date of service: 09/18/23 Time of Service: 16:26 Assessment and Plan Assessment and plan (1) Hyponatremia: Status: Acute Assessment and plan: Sodium is up to 1132. Desmopressin has been discontinued definitively. The patient was taking 0.2 mg of desmopression qhs at home, likely making the dose she received at [facility] [facility] excessive. Continue to monitor neurochecks - I do think residual difficulty with vision could be due to the rapid osmotic shifts. (2) Right femoral fracture: Status: Acute Assessment and plan: S/p ORIF [facility]. Continue PT, OT, wound care Seen by orthopedics: touchdown weightbearing to RLE. Continue Xarelto 10 mg daily through 09/28/2023, per ortho Qualifiers: Encounter type: sequela Femur location: unspecified portion of femur Fracture type: closed Fracture morphology: other fracture Qualified Code(s): S72.8X1S - Other fracture of right femur, sequela (3) Urinary incontinence: Status: Acute Assessment and plan: Desmopressin definitively discontinued. Consider bladder scans Qualifiers: Urinary Incontinence type: other incontinence Qualified Code(s): N39.498 - Other specified urinary incontinence (4) Hypertension: Status: Chronic Assessment and plan: Continue spironolactone, Toprol-XL. Hold lisinopril due to hyponatremia. Qualifiers: Hypertension type: primary hypertension Qualified Code(s): I10 - Essential (primary) hypertension (5) Secondary progressive multiple sclerosis: Status: Acute Assessment and plan: Continue duloxetine, baclofen, Wellbutrin, Provigil. PT/OT consulted (6) Anemia: Status: Acute Assessment and plan: H/H stable. No active bleeding. Qualifiers: Anemia type: other cause Other causes of anemia: acute posthemorrhagic Qualified Code(s): D62 - Acute posthemorrhagic anemia (7) DVT prophylaxis: Status: Acute Assessment and plan: rivaroxaban (being used specifically for DVT ppx) (8) Discharge planning issues: Status: Acute Assessment and plan: Full code. History of Present Illness History of Present Illness Chief Complaint: difficulty reading, recovering post R-hip ORIF Narrative: Ms Coker is a 58 year old female with PMHx of MS, overactive baldder on desmopressin as outpatient, osteoporosis, who was recovering after an ORIF R hip ([facility] [facility]) on SB1 status after transfer to us from [facility], when her sodiums were noted to be low (123->120->119). The patient was admitted to medical surgical status and placed in the ICU. Her desmopressin was held and she was started on hypertonic saline, of which she was supposed to receive only 100 cc, but ended up receiving more. Her sodium went up to 131 the following morning, then drifted down to 127 on its own. Desmopressin was definitively discontinued as the patient has had issues with hyponatremia on it. The patient did have symptoms with her hyponatremia - clouded vision and difficulty reading. This has gotten significantly better and continues to improve, but some difficulty with reading (words occasionally disappearing) is still there. The sodiums have stabilized. The patient has no symptoms otherwise. She was evaluated by orthopedics and is felt safe for touchdown weightbearing to E. She is being placed back in SB1 today for continued work with physical therapy. Review of Systems All systems reviewed & are unremarkable except as noted in HPI and below PFSH All Active Problems Discharge planning issues (Acute) DVT prophylaxis (Acute) Depression (Chronic) Secondary progressive multiple sclerosis (Acute) Hypertension (Chronic) Urinary incontinence (Acute) Right femoral fracture (Acute) Thrombocytosis (Acute) Hypoalbuminemia (Acute) Hyponatremia (Acute) Anemia due to blood loss (Acute) Closed right femoral fracture (Acute) Closed comminuted intertrochanteric fracture of right femur (Acute ~06/2023) Open reduction and intramedullary fixation DOS: 07/10/2023 Foot pain (Acute) Arthritis (Acute) Pes planus (Acute) Anemia (Acute) Essential hypertension (Chronic 09/02/13) Foot drop, left (Acute 05/17/15) Multiple sclerosis (Chronic 1991) Neurogenic bladder (Acute 01/13/16) Spasticity (Chronic 05/17/15) Synovial cyst of popliteal space (Acute) Urge incontinence of urine (Acute 08/08/12) Memory loss (Chronic) Depression (Chronic) Fatigue (Acute) Acquired pes planus of right foot (Chronic) chronic pain in foot; possible surgery Medical History Murmur, cardiac Closed subcapital fracture of left femur S/P L BELEN --DOS 03/15/22 Spinal stenosis of lumbar region with radiculopathy GERD (gastroesophageal reflux disease) Left carpal tunnel syndrome managed non-surgically Optic neuritis Surgical History Status post lumbar laminectomy (~07/2022) 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 S/P ovarian cystectomy S/P tonsillectomy and adenoidectomy S/P left knee arthroscopy partial medial meniscectomy, L Status post bunionectomy Status post myringotomy with insertion of tube Family History Mother , age 76 Diabetes Essential hypertension Asthma Father , age 55 Substance abuse Essential hypertension Hypercholesterolemia Alcohol abuse Brother Alcohol abuse Substance abuse Maternal Grandfather , age 68 Essential hypertension Hyperlipidemia Stroke Liver cancer Paternal Grandfather , age 78 Stomach cancer Maternal Grandmother , age 97 Diabetes Essential hypertension Hyperlipidemia Paternal Grandmother , age 76 Dementia Daughter No problems noted. Social History Smoking/Tobacco Use Status: Former Tobacco Use tobacco type: cigarettes Quit Date: 11/12/07 Tobacco: How many years used: 12 Second Hand Exposure: Yes Smoking risk assessment performed?: Yes Alcohol Intake: current Alcohol Intake frequency: a few times a month Alcohol type: beer, wine and hard liquor Drug use: Daily Substance use type: marijuana Caregiver/Support person: No Household members: spouse Housing: house Number of Children: 1 Communication Needs: None Do you need help understanding health information?: Never current occupation: [employer] 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 Pets and animals: Yes Pets and animals: cat(s) Sexually active: Yes Do you think of yourself as: straight/heterosexual Current gender identity: female What is your relationship status?: How often do you talk on the phone with friends or family?: never How often do you get together with friends or relatives?: never How often do you attend oriental orthodox or zoroastrianism services?: decline to answer Do you belong to any clubs or organized social groups?: no Panel score (0-1 are the most socially isolated patients): 1 What type of physical activity do you participate in: bicycling Duration: 15-30 minutes/day Frequency: 3-4 times per week Veda/Hinduism: None Special veda needs: No Seatbelt use: always Helmet use: Yes Helmet use: sometimes Drive intox or ride w/intox ups driver: No Do you feel safe at home: Yes Do you feel safe in your relationship?: Yes Additional Social history: Enjoys reading, cross-stitch. Meds Allergies and Home Medications Allergies Allergy/AdvReac Type Severity Reaction Status Date / Time Sulfa (Sulfonamide Allergy Intermediate SKIN RASH Verified 08/17/23 18:38 Antibiotics) Penicillins Allergy Unknown RASH Verified 08/17/23 18:38 chlorthalidone AdvReac Severe Hyponatremi Verified 08/17/23 18:38 a codeine AdvReac Unknown NAUSEA Verified 08/17/23 18:38 Home Medications Medication Instructions Recorded Confirmed Type Lactobacillus comb 1 cap PO DAILY 02/04/13 09/16/23 History no.8-GKF-mcmondxsty 300 million cell-250 mg capsule (Probiotic and Acidophilus) pediatric multivit no.17-ferrous 2 tab PO DAILY 02/04/13 09/16/23 History fumarate 15 mg iron chewable tablet timolol maleate (PF) 0.25 % eye 1 drp ophthalmic (eye) DAILY 02/04/13 09/17/23 History drops in a dropperette (Timoptic Ocudose (PF)) vitamin B comp and C no.3 15 mg-10 1 cap PO DAILY 02/04/13 09/16/23 History mg-50 mg-5 mg-300 mg capsule (B Complex Plus Vitamin C) calcium carbonate 600 mg-vitamin 1 ea PO DAILY 01/26/15 09/16/23 History D3 5 mcg (200 unit) tablet cholecalciferol (vitamin D3) 125 5,000 unit PO DAILY 01/26/15 09/16/23 History mcg (5,000 unit) tablet glucosamine sulfate 250 1 ea PO BID 01/26/15 09/16/23 History mg-chondroitin sulfate A 200 mg capsule melatonin 3 mg tablet 6 mg PO HS 03/25/19 09/16/23 History turmeric root extract 500 mg 500 mg PO DAILY 05/07/19 09/16/23 History capsule magnesium 500 mg tablet 500 mg PO DAILY 04/19/22 09/16/23 History lisinopril 40 mg tablet 40 mg PO DAILY #90 tabs 09/29/22 09/16/23 Rx omeprazole 20 mg capsule,delayed 20 mg PO DAILY #90 caps 10/17/22 09/16/23 Rx release baclofen 20 mg tablet 40 mg (2 x 20 mg) PO TID #540 tabs 12/25/22 09/16/23 Rx spironolactone 50 mg tablet 50 mg PO DAILY #90 tabs 02/09/23 09/16/23 Rx bupropion HCl 300 mg 24 hr tablet, 300 mg PO QAM #90 tabs 03/16/23 09/16/23 Rx extended release modafinil 200 mg tablet (Provigil) 200 mg PO BID #180 tabs 03/22/23 09/16/23 Rx amlodipine 5 mg tablet 5 mg PO DAILY #90 tabs 06/26/23 09/16/23 Rx dalfampridine 10 mg 10 mg PO BID #180 tabs 07/16/23 09/16/23 Rx tablet,extended release,12 hr (Ampyra) fluticasone propionate 50 1 spray intranasal BID 08/19/23 09/16/23 History mcg/actuation nasal spray,suspension acetaminophen 325 mg tablet 650 mg (2 x 325 mg) PO Q6H PRN PRN 08/28/23 09/16/23 Rx #0 tabs cyclobenzaprine 10 mg tablet 5 mg (1/2 x 10 mg) PO TID PRN PRN 08/28/23 09/16/23 Rx #0 tabs diphenhydramine HCl 25 mg capsule 25 mg PO HS PRN PRN #0 caps 08/28/23 09/16/23 Rx metoprolol tartrate 25 mg tablet 25 mg PO BID PRN #0 tabs 08/28/23 09/16/23 Rx multivit with mins-ferrous sulf 15 1 packet PO TID #0 ea 08/28/23 09/16/23 Rx mg-folic 700 mcg oral powder packet (Phlexy-Vits) polyethylene glycol 3350 17 gram 17 - 34 g PO BID PRN PRN 08/28/23 09/16/23 Rx oral powder packet Constipation #0 ea sodium chloride 0.9 % (flush) (BD 5 ml IVP PRN PRN #0 mL 08/28/23 09/16/23 Rx PosiFlush Normal Saline 0.9 % injection syringe) duloxetine 60 mg capsule,delayed 60 mg PO DAILY #90 caps 09/13/23 09/16/23 Rx release desmopressin 0.2 mg tablet 0.2 mg PO HS 09/15/23 09/16/23 History metoprolol succinate 50 mg 50 mg PO DAILY 09/16/23 09/16/23 History tablet,extended release 24 hr timolol maleate 0.5 % eye drops 1 drp ophthalmic (eye) DAILY 09/17/23 09/17/23 History Exam Narrative Exam Narrative: General: A pleasant middle-aged female who is A&Ox3, laying comfortably in bed, wearing glasses, reading a magazine Neurological: A&Ox3, 5/5 strength in BUEs, L foot drop, R foot flattened (baseline) Psychiatric: Appropriate speech pattern/content Skin: B heels dressed - c/d/i; R hip incision healing well, open to air - c/d/i HEENT: Atraumatic, normocephalic, EOMI, MMM, clear oropharynx, no submandibular or cervical lymphadenopathy, no goiter or JVD Cardiovascular: RRR, loud end-diastolic click Lungs: CTAB anteriorly Gastrointestinal: soft, nontender, nondistended Genitourinary: deferred Extremities: see skin exam, no edema, clubbing, cyanosis, 2+ pedal pulses B, L foot drop, R foot flat Time Spent Time spent with Patient: 40-54 minutes Time was spent: preparing to see the patient(eg.review tests), obtaining and/or reviewing separately otained hiistory, ordering medications,tests, procedures, referring, communicating with other health healthcare management, indepentently int erpreting results, counseling the patient and care coordination
[2023-09-18] MEDS: Fluticasone NASAL SPRAY 16 GM BTL NS (21:41)
[2023-09-18] MEDS: Baclofen 10 MG TAB 40 MG PO (21:42)
[2023-09-18] MEDS: Ferrous Sulfate 325 MG TAB PO (21:42)
[2023-09-18] MEDS: Gabapentin 300 MG CAP PO (21:43)
[2023-09-18] MEDS: Melatonin 3 MG TAB 6 MG PO (21:43)
[2023-09-18] MEDS: DULoxetine 30 MG CAP 60 MG PO (21:45)
[2023-09-18 23:39] VITALS: BP 103/67; PULSE 72; RESP 16; TEMP 36.5; O2SAT 91
[2023-09-19 06:58] LABS: Anion Gap 6.4 mmol/L (3-11); BUN 11 mg/dL (7-18); CO2 30.6 mmol/L (21.0-32.0); CREATININE 0.5 mg/dL (0.55-1.02); Calcium 9.2 mg/dL (8.5-10.1); Chloride 96 mmol/L (98-107); Estimated GFR 109.33 (mL/min/1.73m2); Glucose 110 mg/dL (74-106); Potassium 4.5 mmol/L (3.5-5.1); Sodium 133 mmol/L (136-145)
[2023-09-19 07:20] VITALS: BP 114/70; PULSE 73; RESP 16; TEMP 36.6; O2SAT 94
[2023-09-19] MEDS: Fluticasone NASAL SPRAY 16 GM BTL NS ×2 (07:33→19:57)
[2023-09-19] MEDS: Timolol 0.5% 5 ML BTL OU (07:33)
[2023-09-19] MEDS: Ferrous Sulfate 325 MG TAB PO ×2 (07:34→19:56)
[2023-09-19] MEDS: Pantoprazole 40 MG TABCR PO (07:34)
[2023-09-19] MEDS: Gabapentin 300 MG CAP PO ×3 (07:34→19:56)
[2023-09-19] MEDS: Baclofen 10 MG TAB 40 MG PO ×3 (07:34→19:56)
[2023-09-19] MEDS: buPROPion-XL 150 MG TABCR 300 MG PO (07:46)
[2023-09-19] MEDS: Metoprolol CR 50 MG TABCR PO (07:46)
[2023-09-19] MEDS: Modafinil 100 MG TAB 200 MG PO (07:46)
[2023-09-19] MEDS: Calcium 600mg/Vit D 200U TAB 1 TAB PO (07:46)
[2023-09-19] MEDS: Spironolactone 50 MG TAB PO (07:46)
[2023-09-19] MEDS: Rivaroxaban 10 MG TABLET PO (07:47)
[2023-09-19] MEDS: Dronabinol 2.5 MG CAP PO ×2 (11:22→17:44)
--- NOTE | 2023-09-19 15:21 | CHAPLAIN ---
Steffi was resting in bed when visited. She told me about being at [facility] and having challenging roommates that made her stay there difficult. She is relieved to be here. Family members have been visiting and will continue to.
[2023-09-19 15:47] VITALS: BP 123/79; PULSE 71; RESP 16; TEMP 37.8; O2SAT 94
--- NOTE | 2023-09-19 16:05 | IN_ITS ---
Date of service: 09/19/23 Time of Service: 16:05 PT Notes Visit Reasons: R femoral fracture s/p ORIF, hyponatremia Swing Bed Level I Physical Therapy Evaluation Date: 09/19/2023 Referring Doctor: Kristin Solorio MD PT Orders: PT CONSULT: Limited ability Precautions: Standard. Fall risk. Per Dr. Swan as of 09/17/23 TDWB on the R LE until 10/10/2023; 50% PWB beginning 10/11/2023 using FWW. Posterior hip precautions in place. Patient Profile/Admitting Diagnosis: S/P Open reduction and intramedullary fixation of R intertrochnateric fracture of R femur on 07/10/2023. S/P removal of previous IMN and replacement of new IMN of R periprosthetic fracture of R femur on 08/18/2023. S/P [place] [facility] [place]. Readmitted to [facility] on 09/14/2023 for continued rehabilitation with PT re- evaluaiton done on 09/15/2023. Steffi converted to Swing Bed Level I as of 09/18/2023 and is re-evaluated for continued rehabilitation S/P revision R posterior BELEN. She is here for continued rehabilitation to achieve highest functional mobility level. PMHX: All Active Problems (Updated 09/14/23 @ 20:[address] MD) Depression (Chronic) Secondary progressive multiple sclerosis (Acute) Hypertension (Chronic) Urinary incontinence (Acute) Right femoral fracture (Acute) Thrombocytosis (Acute) Hypoalbuminemia (Acute) Hyponatremia (Acute) Anemia due to blood loss (Acute) Closed right femoral fracture (Acute) Closed comminuted intertrochanteric fracture of right femur (Acute ~06/2023) Open reduction and intramedullary fixation DOS: 07/10/2023Foot pain (Acute) Arthritis (Acute) Pes planus (Acute) Anemia (Acute) Essential hypertension (Chronic 09/02/13) Foot drop, left (Acute 05/17/15) Multiple sclerosis (Chronic 1991) Neurogenic bladder (Acute 01/13/16) Spasticity (Chronic 05/17/15) Synovial cyst of popliteal space (Acute) Urge incontinence of urine (Acute 08/08/12) Memory loss (Chronic) Depression (Chronic) Fatigue (Acute) Acquired pes planus of right foot (Chronic) chronic pain in foot; possible surgery Medical History Murmur, cardiac Closed subcapital fracture of left femur S/P L BELEN --DOS 03/15/22 Spinal stenosis of lumbar region with radiculopathy GERD (gastroesophageal reflux disease) Left carpal tunnel syndrome managed non-surgicallyOptic neuritis Surgical History Status post lumbar laminectomy (~07/2022) 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 Prior to her original fx, she ambulated household distances with a cane, and used a rollator for community ambulation. She additionally has a brace for her right foot and ankle to accommodate for instability and leg length discrepancy. Since her last surgery, she's been ambulating short distances with a walker, stating she was doing a lot better. Equipment Owned/DME: Rollator, cane, R LE AFO Subjective: Has been doing well with her bed level exercises. States that she has 3 weeks more of being TDWB. Agreeable to Swing Bed Level plan of slowly progressing B UE/trunk strength and to a graduated strengthening program for the R LE. Objective: General Observation: Patient resting in supine. Abduction wedge appearing to big for patient. Rolled towel under B ankles have moved up and needed to be repositioned. Optiloc dressings to bony areas in B ankles in contact with abduction wedge. Surgical incision in the R lateral thigh well approximated and healing well. R thigh more swollen than the L. B feet pes planus. Mental Status: A&Ox3. Pleasant and cooperative throughout. Pain: 3-4/10 with gentle movement in the R hip ROM: Right Lower Extremity: Able to slide heel to about 30 degrees of flexion at the hip and about 40-45 at the knee. Ankle DF to about 10 degrees only. Less than 10 degrees for active hip abduction on either side due to pain and weakness. Left Lower Extremity: WFL Strength: Right Lower Extremity: Hip flexors 3-/5. Knee flexors 3-/5. Ankle DF'ors 3-/5. Left Lower Extremity: WFL. Able to perform active SLR and heel slide without difficulty or discomfort. Sensation: Intact as to pain and light pressure in B LE Bed Mobility/Transfers: (per 09/18/2023 PUBLIC AFFAIRS SPECIALIST note)? Rolling L/R: Modified independent with bilateral side rails. Patient does not have hospital bed at home. Supine-sit: Modified independent with bilateral side rails. Patient does not have hospital bed at home. ? Sit-supine: Modified independent with bilateral side rails. Patient does not have hospital bed at home. ? Sit-stand: x5. Min assist to block foot from sliding forward. ? Stand-sit: x5. Min assist to block foot from sliding forward. ? Bed-Chair: x1. CGA. ? Chair-bed: x1. CGA. Gait: (per 09/18/2023 PUBLIC AFFAIRS SPECIALIST note)? ? ? 5' with FWW mod assist x1 for lower extremity advancement. Very challenging returning back to bed as she has difficulty maneuvering reverse. Balance: Static Sitting: Good Dynamic Sitting: Fair Static Standing: Fair Dynamic Standing: Fair Special Tests: Mobility Limitations Standardized Measure [facility] AM-PAC 6 clicks Basic Mobility Inpatient Short Form: Raw Score: 18 CMS Score: 47% impairment Informed Consent/Education: Patient instructed in purpose of PT consult and plan of care. Discussed specific interventions to be done with patient in the coming days under swing bed level of care and is in agreement of plan. ASSESSMENT: Oversized abduction pillow beginning to cause shortening of B hip abductors and causing some undue pressure in bony landmarks in the ankles. Nurse it infrastructure specialist Carlos A recommended placement of dressing to prevent further tissue i njury. Patient will require progression of B UE and LE strengthening asn well as graduated B LE strengthening to prepare for ambulation progression 6 weeks after posterior long-stemmed hip BELEN last 08/29/2023. Patient presents with clinical signs and symptoms consistent with post-op status. Was transferred from [facility] to ICU yesterday due to drop in sodium. Appears to be holding up much better this morning. Sounds so the plan is to transfer her back to [facility]. She currently as demonstrated by the following impairment level findings: 1. decreased activity tolerance 2. decreased RLE ROM 3. chronic gait impairments Impairments are contributing to the following functional limitations: 1. unable to tolerate sitting 2. unable to transfer 3. unable to ambulate Patient is assessed as Moderate [id number] moderatecomplexity based on the following: History: Patient is a 58 year old female with MS, following R BELEN 08/29/23. She has acute on chronic mobility impairments. Examination: functional limitations as noted above Presentation: Evolving Decision Makin moderate moderate complexity Goals: Goals X1 week 1. Supine-Sit independent 2. Sit-Supine independent 3. Sit-Stand independent with FWW 4. Stand-Sit independent with FWW 5. Bed-Chair independent with FWW 6. Chair-Bed independent with FWW 7. Gait 10 ft with RW stand bby assist while observing TDWB on the R using FWW PLAN OF CARE/TREATMENT PLAN: 1x/day, 7 days/week x 2 weeks. Plan of care has been reviewed with the PUBLIC AFFAIRS SPECIALIST providing the service under Physical Therapy direction. Initiate Physical Therapy intervention for strengthening, bed mobility, transfers, gait, stairs, balance training, use of assistive device: Will provide smaller abduction pillow to avoid hip abductor shortening. Premedicate for pain and MS to maximize functional performance. Patient to perform PREs to B UE and trunk as tolerated using 1-2 lb weight x 10- 15 reps while sitting at EOB. Patient to use 1 lb AW to B LE while performing PRES x 10-15 reps. Provide adequate rests in between to prevent fatigue due to MS. Transfer to bedside chair leading with GOOD L LE at all times -- position bedside chair to allow for this at all times. Patient may transfer back to bed after lunch with nursing staff. DISCHARGE RECOMMENDATIONS: Patient will benefit from longterm facility placement for continued skilled physical therapy services in order to progress mobility level, strength, and balance in preparation for a safe discharge to home. TREATMENT CODE/TIME: 42422 x 20 minutes for 1 unit, 80955 x 10 minutes for 1 unit beginning at 16:05 PM. Thank you for the opportunity to participate in the care of this patient. Katharina Galvez PT, DPT, CLT [facility] [place], [place]
--- NOTE | 2023-09-19 17:06 | CMSCP_ITS ---
Date of service: 09/19/23 Time of Service: 17:06 Swingbed Plan of Care Activites/Discharge Plan of care: SWING BED PROGRAM ACTIVITIES/DISCHARGE PLAN OF CARE ACTIVITIES PLAN Date: 09/20/23 Identified Need: Life enrichment during extended hospitalization Intervention/Plan: family visits, television, music therapy, activity cart Initials: MEEK DISCHARGE PLAN Date: 09/20/23 Identified Need: strengthening, bed mobility, transfers, gait, stairs, balance training, use of assisstive device: Intervention/Plan: PT/OT. [facility] [place] Follow up. Initials: MEEK
--- NOTE | 2023-09-19 17:06 | CMSA_ITS ---
Date of service: 09/19/23 Time of Service: 17:06 SB Psychosocial/Act. [facility] Admission Admission Date: 09/18/23 Admission From:: [facility] Inpatient Diagnosis:: R Femoral Fracture s/p ORIF, hyponatremia Swing Bed Admission Swing Bed Admit Date:: 09/20/23 Swing Bed Level of Care: Level 1/SNF Social Supports PREVIOUS FUNCTIONAL STATUS/SOCIAL/FAMILY SUPPORTS:: Steffi lives in [place] with her Pepe in a single level home. Their only daughter lives in [place], [place]. Steffi formerly worked at [employer] but was forced into early care home due to worsening symptoms of Multiple Sclerosis. Steffi states her is a early interventionist, so he does all of the cooking. Prior to her original fx, she ambulated household distances with a cane, and used a rollator for community ambulation. She additionally has a brace for her right foot and ankle to accommodate for instability and leg length discrepancy. Since her last surgery, she's been ambulating short distances with a walker, stating she was doing a lot better. Prior to Admission Living Arrangements/Environment Prior to Admission:: As above. Work History Employment Status:: Disabled Benefits Financial: Medicare (Disability SSDI) Advance Directives for Healthcare Advance Directives for Healthcare: Advance Directives Advance Directive Agent: , Pepe as agent. Present Functional Status Physical Abilities:: MS: currently non weight bearing on R LE Cognitive:: Intact Communication:: Appropriate Behavior:: Appropriate Medical History PAST MEDICAL HISTORY/PAST SURGICAL HISTORY:: All Active Problems Closed subcapital fracture of left femur (Acute) Right sided sciatica (Acute) Constipation due to neurogenic bowel (Acute) Lumbosacral radiculopathy (Acute) Spinal stenosis of lumbar region with radiculopathy (Acute) Low back pain (Acute) Hamstring strain (Acute) Synovial cyst of popliteal space (Acute) Syncope (Acute) Left carpal tunnel syndrome (Acute) Atypical presentation of carpal tunnel syndrome I think her symptoms may be more likely to trauma to the radial nerve causing some sensory dysfunction from her frequent falls. She has no evidence of weakness of the wrist extensors or finger extensors. I would just recommend observation however if the patient has increasing symptoms of carpal tunnel on the left side then I would consider injection. I do not see need for any exploration of the radial nerve or the median nerve at this point. Memory loss (Chronic) Status post tonsillectomy and adenoidectomy (Acute) Status post myringotomy with insertion of tube (Acute) Status post bunionectomy (Acute) History of arthroscopy of knee (Acute) Fatigue (Acute) Acquired pes planus of right foot (Acute) Nocturia (Acute) Urge incontinence of urine (Acute 08/08/12) Spasticity (Chronic 05/17/15) Optic neuritis (Acute) Neurogenic bladder (Acute 01/13/16) Multiple sclerosis (Chronic 08/28/11) Foot drop, left (Acute 05/17/15) Essential hypertension (Chronic 09/02/13) Asthma (Acute) Pt denies having asthma Anemia (Acute) Medical History Depression GERD (gastroesophageal reflux disease) Surgical History S/P bunionectomy bilateral S/P left knee arthroscopy partial medial meniscectomy, L S/P myringotomy with insertion of tube x9 S/P ovarian cystectomy S/P tonsillectomy and adenoidectomy Admission Data Reason for Swing Bed Admission:: SNF, PT Discharge Plan:: Anticipate home with services when able to pivot independently Setter Cold Rolling Machine: Marian Perkins Date Assessment was completed:: 09/21/23
[2023-09-19] MEDS: Melatonin 3 MG TAB 6 MG PO (21:30)
[2023-09-19] MEDS: DULoxetine 30 MG CAP 60 MG PO (21:30)
[2023-09-20 03:16] VITALS: BP 106/70; PULSE 77; RESP 16; TEMP 36.1; O2SAT 94
[2023-09-20 07:00] VITALS: BP 115/76; PULSE 66; RESP 16; TEMP 36.5; O2SAT 94
[2023-09-20] MEDS: Rivaroxaban 10 MG TABLET PO (08:53)
[2023-09-20] MEDS: Baclofen 10 MG TAB 40 MG PO ×3 (08:54→20:11)
[2023-09-20] MEDS: Spironolactone 50 MG TAB PO (08:54)
[2023-09-20] MEDS: Modafinil 100 MG TAB 200 MG PO (08:54)
[2023-09-20] MEDS: Pantoprazole 40 MG TABCR PO (08:55)
[2023-09-20] MEDS: Ferrous Sulfate 325 MG TAB PO ×2 (08:55→20:12)
[2023-09-20] MEDS: Metoprolol CR 50 MG TABCR PO (08:55)
[2023-09-20] MEDS: buPROPion-XL 150 MG TABCR 300 MG PO (08:55)
[2023-09-20] MEDS: Gabapentin 300 MG CAP PO ×3 (08:56→20:11)
[2023-09-20] MEDS: Fluticasone NASAL SPRAY 16 GM BTL NS ×2 (09:01→20:12)
[2023-09-20] MEDS: Timolol 0.5% 5 ML BTL OU (09:01)
--- NOTE | 2023-09-20 09:53 | PTTR_ITS ---
Date of service: 09/20/23 Time of Service: 09:28 PT Notes Visit Reasons: R femoral fracture s/p ORIF, hyponatremia Inpatient Physical Therapy Treatment Note [facility] Date: 09/20/23 PRECAUTIONS: Fall, standard, activity as tolerated. SUBJECTIVE: Patient states that she feels ok OBJECTIVE: Supine in bed, cooling blanket on, abduction wedge pillow and PureWick in place. ? PAIN: none reported VITALS: monitored by nursing staff.? ? ? BED MOBILITY/TRANSFERS? Rolling L/R: independent with bilateral bed rails Supine-sit: independent with bilateral bed rails? Sit-supine: not assessed? Sit-stand: Min assist pulling up at gait belt to ensure safety? Stand-sit: Min assist pulling back at gait belt to ensure safe landing* ? Bed-Chair: Min assist? *? Chair-bed: Min assist* *Transfers took place after patient had already participated in therapeutic exercise. This apparent decline in patient's performance is likely due to acute muscle fatigue from today's exercises. Provided skilled cues and instruction on performance and technique throughout. ? Therapeutic Exercises ([id number]): Direct one-on-one instruction in therapeutic exercises to develop strength, endurance, range of motion and flexibility. ? Exercises: * TA activation. Verbal and tactile cues to aid patient in locating and activating the correct muscle. * Seated TA activation * shoulder horizontal abduction vs green theraband with verbal cues for posture, appropriate movement to ensure appropriate muscle recruitment. * tricep extensions vs green theraband * bicep curls vs green theraband * rows vs green theraband, verbal cues for TA activation, verbal cues to be mindful of scapular motion to ensure optimal exercise benefit * lat press downs vs green theraband, verbal cues for TA activation and scapular retraction. Provided skilled instruction in proper exercise performance Provided skilled manual cues to facilitate proper muscle recruitment and/or form. ASSESSMENT:? Patient reports feeling very shaky after treatment session. Agreeable to get up to chair, although transfer performance is slightly decreased. PLAN: Continue global strengthening per plan of care until patient obtains a safe discharge plan. Recommend a SNF stay for patient to continue to build strength and endurance, progress ambulation with or without updated weightbearing precautions. TREATMENT CODE/TIME: 20 minutes beginning at 9:28.
[2023-09-20] MEDS: Calcium 600mg/Vit D 200U TAB 1 TAB PO (10:13)
[2023-09-20 14:53] VITALS: BP 118/75; PULSE 67; RESP 18; TEMP 36.9; O2SAT 95
[2023-09-20] MEDS: Dronabinol 2.5 MG CAP PO (15:48)
[2023-09-20] MEDS: Melatonin 3 MG TAB 6 MG PO (20:12)
[2023-09-20] MEDS: DULoxetine 30 MG CAP 60 MG PO (20:12)
[2023-09-21 07:12] VITALS: BP 108/69; PULSE 70; RESP 18; TEMP 36.5; O2SAT 95
[2023-09-21] MEDS: Modafinil 100 MG TAB 200 MG PO (09:08)
[2023-09-21] MEDS: Ferrous Sulfate 325 MG TAB PO ×2 (09:09→20:33)
[2023-09-21] MEDS: Gabapentin 300 MG CAP PO ×3 (09:09→20:32)
[2023-09-21] MEDS: Pantoprazole 40 MG TABCR PO (09:09)
[2023-09-21] MEDS: Rivaroxaban 10 MG TABLET PO (09:10)
[2023-09-21] MEDS: buPROPion-XL 150 MG TABCR 300 MG PO (09:10)
[2023-09-21] MEDS: Spironolactone 50 MG TAB PO (09:10)
[2023-09-21] MEDS: Baclofen 10 MG TAB 40 MG PO ×3 (09:10→20:32)
[2023-09-21] MEDS: Metoprolol CR 50 MG TABCR PO (09:11)
[2023-09-21] MEDS: Calcium 600mg/Vit D 200U TAB 1 TAB PO (09:11)
[2023-09-21] MEDS: Fluticasone NASAL SPRAY 16 GM BTL NS ×2 (09:13→20:33)
[2023-09-21] MEDS: Timolol 0.5% 5 ML BTL OU (09:14)
--- NOTE | 2023-09-21 10:16 | PTTR_ITS ---
Date of service: 09/21/23 Time of Service: 09:36 PT Notes Visit Reasons: R femoral fracture s/p ORIF, hyponatremia Inpatient Physical Therapy Treatment Note [facility] Date: 09/21/23 PRECAUTIONS: Fall, standard, activity as tolerated. NWB RLE. SUBJECTIVE: Patient reports that she waited too long to go back to bed yesterday, and was exhausted and states the transfer was not pretty. Encouraged patient to return to bed between lunch and dinner, then get back up for dinner so as to build strength via multiple transfers as well as preserving energy by not sitting up so long. OBJECTIVE: Supine in bed. Abduction pillow in place, as well as towel rolls to float heels. Agreeable to therapy. ? PAIN: none reported initially, however did c/o occasional pain in her back as she was sitting EOB. Reports that pain resolves when she remembers to activate her TA. VITALS: monitored by nursing staff. ? BED MOBILITY/TRANSFERS? Rolling L/R: independent Supine-sit: independent ? Sit-supine: independent ? Sit-stand:SBA ? Stand-sit: SBA? Bed-Chair: CGA ? Chair-bed: CGA ? Therapeutic Exercises ([id number]): Direct one-on-one instruction in therapeutic exercises to develop strength, endurance, range of motion and flexibility. ? Exercises: All exercises took place seated EOB for core strengthening, with intermittent verbal cues for TA activation. All exercises were performed x10 bilaterally. * shoulder horizontal abduction vs green theraband. Verbal cues for scapular motion. * tricep extensions vs green theraband * bicep curls vs green theraband * rows vs green theraband. Cues for posture and scapular motion. * Latissimus press downs vs green theraband. Cues for posture, scapular motion, trunk stabilization. * Seated marching with trunk leaned back. Cues for TA activation, tactile/visual cues for right hip flexion only to >90 degrees to follow posterior hip precautions. * Seated LAQ's Provided skilled instruction in proper exercise performance Provided skilled manual cues to facilitate proper muscle recruitment and/or form. ASSESSMENT:? Patient remains unable to ambulate due to limited upper body and LLE strength combined with NWB precautions until 10/11, when per Dr Swan patient may transition to PWB status. Patient will likely be able to ambulate independently after that time. PLAN: Continue global strengthening, particularly focused on core and UE strength, per plan of care until patient achieves safe discharge plan. TREATMENT CODE/TIME: 31 minutes beginning at 9:36
[2023-09-21 15:27] VITALS: BP 113/73; PULSE 68; RESP 16; TEMP 36.6; O2SAT 98
[2023-09-21] MEDS: Melatonin 3 MG TAB 6 MG PO (21:50)
[2023-09-21] MEDS: DULoxetine 30 MG CAP 60 MG PO (21:50)
[2023-09-21 23:00] VITALS: BP 97/60; PULSE 70; RESP 16; TEMP 36.4; O2SAT 93
[2023-09-22 07:28] VITALS: BP 108/72; PULSE 62; RESP 16; TEMP 36.3; O2SAT 96
[2023-09-22] MEDS: Calcium 600mg/Vit D 200U TAB 1 TAB PO (08:19)
[2023-09-22] MEDS: Rivaroxaban 10 MG TABLET PO (08:19)
[2023-09-22] MEDS: Modafinil 100 MG TAB 200 MG PO (08:19)
[2023-09-22] MEDS: Metoprolol CR 50 MG TABCR PO (08:20)
[2023-09-22] MEDS: Baclofen 10 MG TAB 40 MG PO ×3 (08:20→20:27)
[2023-09-22] MEDS: Gabapentin 300 MG CAP PO ×3 (08:20→20:27)
[2023-09-22] MEDS: buPROPion-XL 150 MG TABCR 300 MG PO (08:20)
[2023-09-22] MEDS: Pantoprazole 40 MG TABCR PO (08:20)
[2023-09-22] MEDS: Spironolactone 50 MG TAB PO (08:21)
[2023-09-22] MEDS: Fluticasone NASAL SPRAY 16 GM BTL NS ×2 (08:21→20:28)
[2023-09-22] MEDS: Ferrous Sulfate 325 MG TAB PO ×2 (08:21→20:27)
[2023-09-22] MEDS: Timolol 0.5% 5 ML BTL OU (08:22)
--- NOTE | 2023-09-22 12:28 | PTTR_ITS ---
Date of service: 09/22/23 Time of Service: 09:15 PT Notes Visit Reasons: R femoral fracture s/p ORIF, hyponatremia Inpatient Physical Therapy Treatment Note [facility] Date: 09/22/2023 PRECAUTIONS: Fall, standard, activity as tolerated. NWB RLE. SUBJECTIVE: Stated she is good getting up into chair today. OBJECTIVE: ? PAIN: No complaints offered. Vitals monitored by nursing. ? Therapeutic Exercises ([id number]): Direct one-on-one instruction in therapeutic exercises to develop strength, endurance, range of motion and flexibility. ? Exercises: All exercises took place seated EOB for core strengthening, with intermittent verbal cues for TA activation. All exercises were performed x10 bilaterally. * shoulder horizontal abduction vs green theraband. Verbal cues for scapular motion. * tricep extensions vs green theraband * bicep curls vs green theraband * rows vs green theraband. Cues for posture and scapular motion. * Latissimus press downs vs green theraband. Cues for posture, scapular motion, trunk stabilization. * Seated marching with trunk leaned back. Cues for TA activation, tactile/visual cues for right hip flexion only to >90 degrees to follow posterior hip precautions. * Seated LAQ's Provided skilled instruction in proper exercise performance Provided skilled manual cues to facilitate proper muscle recruitment and/or form. BED MOBILITY/TRANSFERS? Rolling L/R: independent with bilateral bed rails Supine-sit: independent with bilateral bed rails? Sit-supine: not assessed? Sit-stand: Min assist pulling up at gait belt to ensure safety? Stand-sit: Min assist pulling back at gait belt to ensure safe landing* ? Bed-Chair: Min assist? *? Chair-bed: Min assist* *Transfers took place after patient had already participated in therapeutic exercise. This apparent decline in patient's performance is likely due to acute muscle fatigue from today's exercises. ? ASSESSMENT:? Steffi remains unable to ambulate due to limited upper body and LLE strength combined with NWB precautions until 10/11, when per Dr Swan patient may transition to PWB status. Patient will likely be able to ambulate independently after that time. PLAN: Continue with global strengthening, focusing on core and UE strength, per plan of care until patient achieves safe discharge plan. TREATMENT CODE/TIME: ? ? ?
[2023-09-22 15:32] VITALS: BP 105/65; PULSE 68; RESP 18; TEMP 36.6; O2SAT 97
[2023-09-22] MEDS: Acetaminophen 325 MG TAB PO (15:55)
[2023-09-22] MEDS: DULoxetine 30 MG CAP 60 MG PO (20:46)
[2023-09-22] MEDS: Melatonin 3 MG TAB 6 MG PO (20:47)
[2023-09-23 00:29] VITALS: BP 103/61; PULSE 66; RESP 18; TEMP 36.1; O2SAT 95
[2023-09-23 07:18] VITALS: BP 113/71; PULSE 61; RESP 17; TEMP 36.4; O2SAT 97
[2023-09-23] MEDS: Metoprolol CR 50 MG TABCR PO (07:53)
[2023-09-23] MEDS: Calcium 600mg/Vit D 200U TAB 1 TAB PO (07:53)
[2023-09-23] MEDS: Modafinil 100 MG TAB 200 MG PO (07:53)
[2023-09-23] MEDS: Gabapentin 300 MG CAP PO ×3 (07:53→20:01)
[2023-09-23] MEDS: Baclofen 10 MG TAB 40 MG PO ×3 (07:53→20:01)
[2023-09-23] MEDS: Spironolactone 50 MG TAB PO (07:53)
[2023-09-23] MEDS: Rivaroxaban 10 MG TABLET PO (07:53)
[2023-09-23] MEDS: Ferrous Sulfate 325 MG TAB PO ×2 (07:54→20:01)
[2023-09-23] MEDS: buPROPion-XL 150 MG TABCR 300 MG PO (07:54)
[2023-09-23] MEDS: Pantoprazole 40 MG TABCR PO (07:54)
[2023-09-23] MEDS: Fluticasone NASAL SPRAY 16 GM BTL NS ×2 (07:54→20:01)
[2023-09-23] MEDS: Timolol 0.5% 5 ML BTL OU (09:20)
--- NOTE | 2023-09-23 12:44 | PTTR_ITS ---
Date of service: 09/23/23 Time of Service: 09:30 PT Notes Visit Reasons: R femoral fracture s/p ORIF, hyponatremia Inpatient Physical Therapy Treatment Note [facility] Date: 11/23/2022 PRECAUTIONS: Fall, standard, activity as tolerated. NWB RLE. SUBJECTIVE: Stated she is doing well today. OBJECTIVE: ? PAIN: No complaints offered. Vitals monitored by nursing. ? Therapeutic Exercises ([id number]): Direct one-on-one instruction in therapeutic exercises to develop strength, endurance, range of motion and flexibility. ? Exercises: All exercises took place seated on EOB for core strengthening, with intermittent verbal cues for TA activation. * shoulder horizontal abduction vs green theraband. Verbal cues for scapular motion. * tricep extensions vs green theraband x12 reps * bicep curls vs green theraband x 12 reps * rows vs green theraband. Cues for posture and scapular motion x 12 reps * Latissimus press downs vs green theraband. Cues for posture, scapular motion, trunk stabilization x 10 reps * Seated marching with trunk leaned back. Cues for TA activation, tactile/visual cues for right hip flexion only to >90 degrees to follow posterior hip precautions x 10 reps * Seated LAQ'sProvided skilled instruction in proper exercise performance x 15 reps Provided skilled manual cues to facilitate proper muscle recruitment and/or form. BED MOBILITY/TRANSFERS? Rolling L/R: independent with bilateral bed rails Supine-sit: independent with bilateral bed rails? Sit-stand: CGA ? Stand-sit: CGA ? Bed-Chair: CGA? Chair-bed: CGA ? ASSESSMENT:? Steffi remains unable to ambulate due to limited upper body and LLE strength combined with NWB precautions until 10/11, when per Dr Swan patient may transition to PWB status. Patient will likely be able to ambulate independently after that time. PLAN: Continue with global strengthening, focusing on core and UE strength, per plan of care until patient achieves safe discharge plan. TREATMENT CODE/TIME: [id number], 9:30 to 10:00 (30') ? ? ?
[2023-09-23 15:19] VITALS: BP 109/69; PULSE 72; RESP 17; TEMP 37; O2SAT 96
[2023-09-23] MEDS: DULoxetine 30 MG CAP 60 MG PO (22:13)
[2023-09-23] MEDS: Melatonin 3 MG TAB 6 MG PO (22:13)
[2023-09-23] MEDS: diphenhydrAMINE 25 MG CAP PO (22:54)
[2023-09-24 00:07] VITALS: BP 102/66; PULSE 68; RESP 18; TEMP 36.4; O2SAT 97
[2023-09-24 07:47] VITALS: BP 119/70; PULSE 66; RESP 18; TEMP 36.3; O2SAT 95
[2023-09-24] MEDS: Fluticasone NASAL SPRAY 16 GM BTL NS ×2 (08:41→19:48)
[2023-09-24] MEDS: Modafinil 100 MG TAB 200 MG PO (08:41)
[2023-09-24] MEDS: Timolol 0.5% 5 ML BTL OU (08:41)
[2023-09-24] MEDS: Metoprolol CR 50 MG TABCR PO (08:42)
[2023-09-24] MEDS: Spironolactone 50 MG TAB PO (08:42)
[2023-09-24] MEDS: Calcium 600mg/Vit D 200U TAB 1 TAB PO (08:42)
[2023-09-24] MEDS: Gabapentin 300 MG CAP PO ×3 (08:42→19:41)
[2023-09-24] MEDS: Rivaroxaban 10 MG TABLET PO (08:42)
[2023-09-24] MEDS: Pantoprazole 40 MG TABCR PO (08:43)
[2023-09-24] MEDS: buPROPion-XL 150 MG TABCR 300 MG PO (08:43)
[2023-09-24] MEDS: Baclofen 10 MG TAB 40 MG PO ×3 (08:43→19:42)
[2023-09-24] MEDS: Ferrous Sulfate 325 MG TAB PO ×2 (08:43→19:41)
--- NOTE | 2023-09-24 10:50 | PTTR_ITS ---
Date of service: 09/24/23 Time of Service: 10:16 PT Notes Visit Reasons: R femoral fracture s/p ORIF, hyponatremia Inpatient Physical Therapy Treatment Note [facility] Date: 09/24/23 PRECAUTIONS: Fall, standard, activity as tolerated. SUBJECTIVE: Patient reports feeling pretty good. OBJECTIVE: Supine in bed, hip abduction pillow and PureWick in place, agreeable to therapy. ? PAIN: reports that her back is crooked and feeling like she can't get her balance, seated EOB. Resolved when this clinician lowers the foot of the bed to flat. VITALS: monitored by nursing staff. Therapeutic Activities ([id number]): Direct one-on-one instruction in dynamic activities to improve functional performance. ? BED MOBILITY/TRANSFERS? Rolling L/R: independent with bilateral side rails. Supine-sit: independent with bilateral side rails. ? Sit-supine: independent with bilateral side rails. ? Sit-stand: SBA ? Stand-sit: SBA ? Bed-Chair: CGA ? Chair-bed: [facility] Provided skilled cues and instruction on performance and technique throughout. ? Therapeutic Exercises ([id number]): Direct one-on-one instruction in therapeutic exercises to develop strength, endurance, range of motion and flexibility. ? Exercises: * LAQ's x10 * seated marching x10 * ankle pumps x10 * shoulder horizontal abduction vs green theraband x15 * tricep extensions vs green theraband x15 * Bicep curls vs green theraband x15 Provided skilled instruction in proper exercise performance Provided skilled manual cues to facilitate proper muscle recruitment and/or form: Frequent reminders for patient to activate TA, coordinate breathing. ASSESSMENT:? Patient tolerates therapy well. PLAN: Continue global strengthening per plan of care until patient is medically cleared and safe to discharge home. TREATMENT CODE/TIME: 29 minutes beginning at 10:16
[2023-09-24 15:02] VITALS: BP 119/74; PULSE 65; RESP 17; TEMP 36.7; O2SAT 98
[2023-09-24] MEDS: Melatonin 3 MG TAB 6 MG PO (19:41)
[2023-09-24] MEDS: DULoxetine 30 MG CAP 60 MG PO (19:42)
[2023-09-24 22:48] VITALS: BP 104/66; PULSE 63; RESP 17; TEMP 36.3; O2SAT 94
--- NOTE | 2023-09-25 05:38 | OTTR_ITS ---
Date of service: 09/24/23 Time of Service: 08:26 Occupational Therapy Notes Occupational Therapy Inpatient Treatment Note Date: 09/24/23 PRECAUTIONS: Fall, Standard, Hip protocol, full SUBJECTIVE: Pt was sitting in bed. She notes that she would like to perform her ADLs. She states that her hip is feeling better but she is still limited d/t her hip precautions at this time. OBJECTIVE: PAIN:slight pain in hip BATHING: seated in bed with max (A) Set up/clean up Upper Body: (I) face, (B) UE and abdomen Lower Body: Max (A) (B) LE DRESSING: Upper Extremity: min (A) [facility] gown Lower Extremity: NT GROOMING: (I) with brushing hair and oral hygiene TOILETING: NT EATING: seated in bed (I) ASSESSMENT/PLAN: Pt is (I) with her UE ADLs in the seated position. She requires (A) with her LE d/t her hip precautions. Plan is to continue to progress pt as symptoms allow for return to home. TREATMENT CODES/TIME: 81818, 15 minutes Angelica Mcmahon OTR/[facility] [place], [place]
[2023-09-25 06:58] VITALS: BP 119/71; PULSE 63; RESP 16; TEMP 35.8; O2SAT 98
[2023-09-25] MEDS: Timolol 0.5% 5 ML BTL OU (07:45)
[2023-09-25] MEDS: Fluticasone NASAL SPRAY 16 GM BTL NS ×2 (07:46→20:18)
[2023-09-25] MEDS: Baclofen 10 MG TAB 40 MG PO ×3 (07:48→20:19)
[2023-09-25] MEDS: Modafinil 100 MG TAB 200 MG PO (07:48)
[2023-09-25] MEDS: buPROPion-XL 150 MG TABCR 300 MG PO (07:48)
[2023-09-25] MEDS: Ferrous Sulfate 325 MG TAB PO ×2 (07:49→20:18)
[2023-09-25] MEDS: Rivaroxaban 10 MG TABLET PO (07:49)
[2023-09-25] MEDS: Calcium 600mg/Vit D 200U TAB 1 TAB PO (07:49)
[2023-09-25] MEDS: Gabapentin 300 MG CAP PO ×3 (07:49→20:19)
[2023-09-25] MEDS: Metoprolol CR 50 MG TABCR PO (07:49)
[2023-09-25] MEDS: Spironolactone 50 MG TAB PO (07:49)
[2023-09-25] MEDS: Pantoprazole 40 MG TABCR PO (07:49)
--- NOTE | 2023-09-25 10:44 | PTTR_ITS ---
Date of service: 09/25/23 Time of Service: 10:15 PT Notes Visit Reasons: R femoral fracture s/p ORIF, hyponatremia Inpatient Physical Therapy Treatment Note [facility] Date: 09/25/23 PRECAUTIONS: Fall, standard, activity as tolerated. POSTERIOR HIP PRECAUTIONS (No hip flexion to <90 degrees, no crossing midline, no internal rotation.) SUBJECTIVE: Patient reports feeling good, ready for therapy. OBJECTIVE: Long sitting in bed, agreeable to therapy. PureWick in place. ? PAIN: None initially, then reports a tightness over right hip which she initially attributes to scoliosis and crunching, then discovers her brief has rolled down and is constricting her there. VITALS: Monitored by nursing staff. ? ? ? BED MOBILITY/TRANSFERS? Rolling L/R: Modified independent with bilateral side rails. Patient does not have side rails on her bed at home. Supine-sit: Modified independent with bilateral side rails, HOB raised to nearly 90 degrees. Patient does not have side rails or the ability to elevate HOB on her bed at home. ? Sit-supine: not assessed? Sit-stand: SBA to FWW? Stand-sit: CGA with verbal cues for safety. ? Bed-Chair: CGA with verbal cues for safety. ? Chair-bed: CGA with verbal cues for safety. ? Therapeutic Exercises ([id number]): Direct one-on-one instruction in therapeutic exercises to develop strength, endurance, range of motion and flexibility. ? Exercises: * LAQ's x10 - verbal and visual cues for proper pacing * seated marching x10 - verbal cues for hip flexion only to 90 degrees * shoulder diagonal horizontal abduction vs green theraband x15 - mod cues for form to activate the correct target muscles * tricep extensions vs green theraband x15 * bicep curls vs green theraband x15 * rows vs green theraband with clinician anchor x15 * lattisimus press downs vs green theraband with clinician anchor x15 - min cues for form to activate the correct target muscles Provided skilled instruction in proper exercise performance Provided skilled manual cues to facilitate proper muscle recruitment and/or form: intermittent postural cues for TA activation, shoulder positioning, scapular motion as appropriate. ASSESSMENT:? Patient tolerates therapy well, reports pain in back after session but states that it has been there all morning PLAN: Continue global strengthening per plan of care. Tomorrow, introduce supine TA activation exercises to ensure appropriate muscles are being re cruited, protect back:vin may introduce ambulation with 3 point gait pattern if appropriate given patient's self-reported feelings of strength, energy. TREATMENT CODE/TIME: 28 minutes beginning at 10:15
[2023-09-25 15:10] VITALS: BP 112/71; PULSE 62; RESP 18; TEMP 37.2; O2SAT 96
--- NOTE | 2023-09-25 16:08 | PGE_ITS ---
Date of Service Date of service: 09/25/23 Time of Service: 16:09 Assessment and Plan Assessment and plan (1) Hyponatremia: Status: Acute Assessment and plan: Sodium remains 133 Desmopressin has been discontinued definitively. The patient was taking 0.2 mg of desmopression qhs at home, likely making the dose she received at [facility] excessive. Continue to monitor neurochecks if needed (2) Right femoral fracture: Status: Acute Assessment and plan: S/p ORIF [facility]. As previously planned Continue PT, OT, wound care Seen by orthopedics: touchdown weightbearing to RLE. Continue Xarelto 10 mg daily through 09/28/2023, per ortho. F/U at [facility] ( 09/29?) 2 weeks from previous, Nursing to call to verify date Qualifiers: Encounter type: sequela Femur location: unspecified portion of femur Fracture morphology: other fracture Fracture type: closed Qualified Code(s): S72.8X1S - Other fracture of right femur, sequela (3) Urinary incontinence: Status: Acute Assessment and plan: Desmopressin definitively discontinued. Consider bladder scans PRN Qualifiers: Urinary Incontinence type: other incontinence Qualified Code(s): N39.498 - Other specified urinary incontinence (4) Hypertension: Status: Chronic Assessment and plan: As previously discussed Continue spironolactone, Toprol-XL. Still holding lisinopril due to hyponatremia. Qualifiers: Hypertension type: primary hypertension Qualified Code(s): I10 - Essential (primary) hypertension (5) Secondary progressive multiple sclerosis: Status: Acute Assessment and plan: Will continue duloxetine, baclofen, Wellbutrin, Provigil. PT/OT consulted an in progress (6) Anemia: Status: Acute Assessment and plan: H/H remains stable. No active bleeding reported or seen Qualifiers: Anemia type: other cause Other causes of anemia: acute posthemorrhagic Qualified Code(s): D62 - Acute posthemorrhagic anemia (7) DVT prophylaxis: Status: Deleted Assessment and plan: rivaroxaban until 09/28 as per ortho (being used specifically for DVT ppx) (8) Discharge planning issues: Status: Deleted Assessment and plan: CM to f/u on date for [facility] appointment probable 09/28 or 09/29 Exam Narrative Exam Narrative: Patient in bed, cooperative w/o acute distress Neurological: A&Ox3, 5/5 strength in BUEs, L foot drop, R foot flattened (baseline) Psychiatric: Appropriate speech pattern/content Skin: Both heels dressed - c/d/i; R hip incision healing well, open to air -DCI HEENT: Normocephalic, normal extra occular eye movement,no lymphadenopathy, no goiter or JVD Cardiovascular:regular, S1, S2, end-diastolic click heard Lungs: CTAB anteriorly and psoteriorly Gastrointestinal: soft, nontender, nondistended Genitourinary: deferred., no CVA tenderness Extremities: see skin exam, no edema, clubbing, cyanosis, 2+ pedal pulses B, L foot drop, R foot flat Objective Last Vital Signs Temp 37.2 C 09/25/23 15:10 Pulse 62 09/25/23 15:10 Resp 18 09/25/23 15:10 BP 112/71 09/25/23 15:10 Pulse Ox 96 09/25/23 15:10 Time Spent with Patient Time Spent with Patient: >50 minutes Time was spent: preparing to see the patient(eg.review tests), ordering medications,tests, procedures, referring, communicating with other health healthcare administration intern, indepentently interpreting results, counseling the patient and care coordination
[2023-09-25 17:13] LABS: Abs Immature Grans 0.02 10^3/uL (0.0-0.06); Absolute Basophil Count 0.05 10^3/uL (0.0-0.2); Absolute Eosinophil Count 0.27 10^3/uL (0.0-0.7); Absolute Monocyte Count 0.57 10^3/uL (0.1-0.8); Absolute Neutrophil Count 3.36 10^3/uL (1.2-6.7); Basophils % 0.8; Eosinophils % 4.2; HGB 10.9 g/dL (11.2-15.7); Immature Grans % 0.3; MCH 30.8 pg (27.0-33.0); MCHC 31.1 % (32.0-36.0); MCV 99 fL (80-95); MPV 7.9 fL (8.0-11.0); Monocytes % 8.9; Neutrophils % 52.8; Platelet Count 395 10^3/uL (130-400); RBC 3.54 10^6/uL (3.93-5.22); RDW 14.8 % (11.7-14.6); RDW-SD 54.6 fL; WBC 6.37 10^3/uL (4.4-10.8)
[2023-09-25 17:23] LABS: Anion Gap 6.3 mmol/L (3-11); BUN 11 mg/dL (7-18); CO2 30.7 mmol/L (21.0-32.0); CREATININE 0.5 mg/dL (0.55-1.02); Calcium 9.2 mg/dL (8.5-10.1); Chloride 96 mmol/L (98-107); Estimated GFR 109.33 (mL/min/1.73m2); Glucose 121 mg/dL (74-106); Potassium 4.1 mmol/L (3.5-5.1); Sodium 133 mmol/L (136-145)
[2023-09-25] MEDS: Melatonin 3 MG TAB 6 MG PO (22:03)
[2023-09-25] MEDS: DULoxetine 30 MG CAP 60 MG PO (22:03)
[2023-09-25] MEDS: diphenhydrAMINE 25 MG CAP PO (22:05)
[2023-09-25 23:39] VITALS: BP 99/60; PULSE 64; RESP 18; TEMP 35.6; O2SAT 95
[2023-09-26 07:36] VITALS: BP 127/80; PULSE 64; RESP 18; TEMP 35.8; O2SAT 100
--- NOTE | 2023-09-26 08:43 | OT.INNT ---
Occupational Therapy Notes 09/26/23 OT went in to see pt and pt notes that she is going to the shower with nursing and would like to hold for today. Angelica Mcmahon, OTR/L
[2023-09-26] MEDS: Fluticasone NASAL SPRAY 16 GM BTL NS ×2 (08:44→20:49)
[2023-09-26] MEDS: Timolol 0.5% 5 ML BTL OU (08:45)
[2023-09-26] MEDS: Rivaroxaban 10 MG TABLET PO (08:45)
[2023-09-26] MEDS: Gabapentin 300 MG CAP PO ×3 (08:45→20:47)
[2023-09-26] MEDS: Metoprolol CR 50 MG TABCR PO (08:45)
[2023-09-26] MEDS: Spironolactone 50 MG TAB PO (08:45)
[2023-09-26] MEDS: Calcium 600mg/Vit D 200U TAB 1 TAB PO (08:45)
[2023-09-26] MEDS: Modafinil 100 MG TAB 200 MG PO (08:45)
[2023-09-26] MEDS: Ferrous Sulfate 325 MG TAB PO ×2 (08:46→20:49)
[2023-09-26] MEDS: Baclofen 10 MG TAB 40 MG PO ×3 (08:46→20:47)
[2023-09-26] MEDS: Pantoprazole 40 MG TABCR PO (08:46)
[2023-09-26] MEDS: buPROPion-XL 150 MG TABCR 300 MG PO (08:46)
--- NOTE | 2023-09-26 11:20 | PT.INPN ---
PT Notes Visit Reasons: R femoral fracture s/p ORIF, hyponatremia Swing Bed Level I Physical Therapy Progress Note Date: 09/26/2023 Dates of Service: 09/19/2023 through 09/26/2023 Precautions: Standard. Fall risk. Per Dr. Swan as of 09/17/23 TDWB on the R LE until 10/10/2023; 50% PWB beginning 10/11/2023 using FWW. Posterior hip precautions in place. Patient Profile/Admitting Diagnosis: S/P Open reduction and intramedullary fixation of R intertrochnateric fracture of R femur on 07/10/2023. S/P removal of previous IMN and replacement of new IMN of R periprosthetic fracture of R femur on 08/18/2023. S/P Long-stemmed R posterior hip revision/BELEN at [facility] on 08/29/2023. Readmitted to [facility] on 09/14/2023 for continued rehabilitation with PT re-evaluaiton done on 09/15/2023. Steffi converted to Swing Bed Level I as of 09/18/2023 and is re-evaluated for continued rehabilitation S/P revision R posterior BELEN. She is here for continued rehabilitation to achieve highest functional mobility level. PMHX: All Active Problems (Updated 09/14/23 @ 20:[address] MD) Depression (Chronic) Secondary progressive multiple sclerosis (Acute) Hypertension (Chronic) Urinary incontinence (Acute) Right femoral fracture (Acute) Thrombocytosis (Acute) Hypoalbuminemia (Acute) Hyponatremia (Acute) Anemia due to blood loss (Acute) Closed right femoral fracture (Acute) Closed comminuted intertrochanteric fracture of right femur (Acute ~06/2023) Open reduction and intramedullary fixation DOS: 07/10/2023Foot pain (Acute) Arthritis (Acute) Pes planus (Acute) Anemia (Acute) Essential hypertension (Chronic 09/02/13) Foot drop, left (Acute 05/17/15) Multiple sclerosis (Chronic 1991) Neurogenic bladder (Acute 01/13/16) Spasticity (Chronic 05/17/15) Synovial cyst of popliteal space (Acute) Urge incontinence of urine (Acute 08/08/12) Memory loss (Chronic) Depression (Chronic) Fatigue (Acute) Acquired pes planus of right foot (Chronic) chronic pain in foot; possible surgery Medical History Murmur, cardiac Closed subcapital fracture of left femur S/P L BELEN --DOS 03/15/22 Spinal stenosis of lumbar region with radiculopathy GERD (gastroesophageal reflux disease) Left carpal tunnel syndrome managed non-surgicallyOptic neuritis Surgical History Status post lumbar laminectomy (~07/2022) 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 Looking forward to progressive her WB status in the next coupe of weeks. Agreeable to trying out standing level exercises to prep her up for the upcoming mobility progression. Did report some soreness in the buttock and thigh muscle after todays session. Understands the importance of ensuring that posterior hip precautions are observed at all times. Patient verbalizes that would really need for her to be at her most independent to make sure that risk for falls is low. Objective: General Observation: Abduction wedge resized for patient. Optiloc dressings to bony areas in B ankles noted. Surgical incision in the R lateral thigh well approximated and healing well. R thigh swelling decreasing. B feet pes planus. Mental Status: A&Ox3. Pleasant and cooperative throughout. Pain: 3-4/10 with gentle movement in the R hip ROM: R Lower Extremity: In standing, able to abduct at the R hip about 20 degrees, extend to about 10 degrees. Knee flexion to 90 degrees. Ankle DF between 10-15 degrees. Hip flexion to 90 degrees only due to posterior hip precautions. Strength: Right Lower Extremity: Hip flexors 3-/5. Hip abductors 3-/5. Knee flexors 3-/5. Ankle DF'ors 3-/5. Left Lower Extremity: WFL. Able to perform active SLR and heel slide without difficulty or discomfort. Sensation: Intact as to pain and light pressure in B LE Bed Mobility/Transfers: (per 09/18/2023 DUMPING MACHINE OPERATOR note)? Rolling L/R: Modified independent with bilateral side rails. Patient does not have hospital bed at home. Supine-sit: Modified independent with bilateral side rails. Patient does not have hospital bed at home. ? Sit-supine: Modified independent with bilateral side rails. Patient does not have hospital bed at home. ? Sit-stand: Minimal assist with cues to not bend trunk too much forward to observe posterior hip precautions ? Stand-sit: Contact guard assist to back to control descent onto transfer surface/chair? Chair-bed: Minimal assist with cues to not bend trunk too much forward to observe posterior hip precautions ? ? Gait: ? Only able to pivot onto chair using FWW, NWB in the R LE Balance: Static Sitting: Good Dynamic Sitting: Fair Static Standing: Fair Dynamic Standing: Fair Special Tests: Mobility Limitations Standardized Measure [facility] 6 clicks Basic Mobility Inpatient Short Form: Raw Score: 18 CMS Score: 47% impairment Informed Consent/Education: Patient instructed in purpose of PT consult and plan of care. Agreeable to progressing mobility level, strength, and activity tolerance in sitting and standing under swing bed levle of care. ASSESSMENT: Abduction pillow has been resized. Seated strengthening ongoing. Transfer level improving. Patient progresses to 50% WB at end of this month (as of 10/11/2023). Has an orthopedic follow up on 10/08/2023. Progressed patient to standing level exercises to slowly increase range of R hip extensors and R hip abductors as of today. Patient presents with clinical signs and symptoms consistent with post-op status. Was transferred from [facility] to ICU yesterday due to drop in sodium. Appears to be holding up much better this morning. Sounds so the plan is to transfer her back to [facility]. She currently as demonstrated by the following impairment level findings: 1. decreased activity tolerance 2. decreased RLE ROM 3. chronic gait impairments Impairments are contributing to the following functional limitations: 1. unable to tolerate sitting 2. unable to transfer 3. unable to ambulate Patient is assessed as Moderate 76336 moderate complexity based on the following: History: Patient is a 58 year old female with MS, following R BELEN 08/29/23. She has acute on chronic mobility impairments. Examination: functional limitations as noted above Presentation: Evolving Decision Makin moderate moderate complexity Goals: Goals X1 week 1. Supine-Sit independent MET. DISCHARGE. 2. Sit-Supine independent MET. DISCHARGE. 3. Sit-Stand independent with FWW NOT MET. CONTINUE. 4. Stand-Sit independent with FWW NOT MET. CONTINUE. 5. Bed-Chair independent with FWW NOT MET. CONTINUE. 6. Chair-Bed independent with FWW NOT MET. CONTINUE. 7. Gait 10 ft with RW stand bby assist while observing TDWB on the R using FWW. NOT MET. CONTINUE. PLAN OF CARE/TREATMENT PLAN: 1x/day, 7 days/week x 2 weeks. Plan of care has been reviewed with the DUMPING MACHINE OPERATOR providing the service under Physical Therapy direction. Initiate Physical Therapy intervention for strengthening, bed mobility, transfers, gait, stairs, balance training, use of assistive device: Will continue to resize abduction pillow to avoid hip abductor shortening. Apply pillow on each side of wedge to avoid undue rubbing on skin of inner thighs/leg on B sides. Continue to premedicate for pain and for MS to maximize functional performance. Patient to perform PREs to B UE and trunk as tolerated using 1-2 lb weight x 10-15 reps while sitting at EOB. CONTINUE Patient to use 1 lb AW to B LE while performing PRES x 10-15 reps. CONTINUE Provide adequate rests in between to prevent fatigue due to MS. CONTINUE Transfer to bedside chair leading with GOOD L LE at all times -- position bedside chair to allow for this at all times. Patient may transfer back to bed after lunch with nursing staff. NEW: Alternate standing level exercises with UE/trunk/seated strengthening on different days to avoid undue fatigue in same muscle groups. DISCHARGE RECOMMENDATIONS: SNF vs HH PT based on progress towards goals. TREATMENT CODE/TIME: 77653 x 30 minutes for 2 units, 45908 x 25 minutes for 2 units beginning at 13:28 PM. Thank you for the opportunity to participate in the care of this patient. Katharina Galvez PT, DPT, CLT [facility] [place], [place]
[2023-09-26 15:06] VITALS: BP 107/68; PULSE 56; RESP 16; TEMP 36.8; O2SAT 97
--- NOTE | 2023-09-26 17:35 | CMACTNOTE_ITS ---
Date of service: 09/26/23 Time of Service: 17:35 Care Management Activity Note Activity Note Text Activity Note Text: Steffi was lying in bed, sharing excitement for an upcoming shower. She continues to enjoy visits with her and daughter, and shares appreciation for her care and recovery support. Follow [place] with [facility] [place]/08/23@1400 Radiology, 1500 with Orthopedics.
[2023-09-26] MEDS: DULoxetine 30 MG CAP 60 MG PO (20:48)
[2023-09-26] MEDS: Melatonin 3 MG TAB 6 MG PO (20:48)
[2023-09-26] MEDS: diphenhydrAMINE 25 MG CAP PO (20:48)
[2023-09-26 20:50] VITALS: BP 100/64; PULSE 63; RESP 18; TEMP 36.4; O2SAT 96
[2023-09-26 22:12] VITALS: BP 101/62; PULSE 60; RESP 16; TEMP 36.5; O2SAT 96
[2023-09-27 07:45] VITALS: BP 112/71; PULSE 66; RESP 17; TEMP 36.6; O2SAT 99
[2023-09-27] MEDS: Baclofen 10 MG TAB 40 MG PO ×3 (07:48→20:41)
[2023-09-27] MEDS: Gabapentin 300 MG CAP PO ×3 (07:48→20:40)
[2023-09-27] MEDS: Modafinil 100 MG TAB 200 MG PO (07:48)
[2023-09-27] MEDS: Ferrous Sulfate 325 MG TAB PO ×2 (07:49→20:41)
[2023-09-27] MEDS: buPROPion-XL 150 MG TABCR 300 MG PO (07:49)
[2023-09-27] MEDS: Pantoprazole 40 MG TABCR PO (07:50)
[2023-09-27] MEDS: Metoprolol CR 50 MG TABCR PO (07:50)
[2023-09-27] MEDS: Calcium 600mg/Vit D 200U TAB 1 TAB PO (07:50)
[2023-09-27] MEDS: Rivaroxaban 10 MG TABLET PO (07:50)
[2023-09-27] MEDS: Spironolactone 50 MG TAB PO (07:52)
[2023-09-27] MEDS: Fluticasone NASAL SPRAY 16 GM BTL NS ×2 (07:52→20:40)
[2023-09-27] MEDS: Timolol 0.5% 5 ML BTL OU (07:53)
--- NOTE | 2023-09-27 13:44 | PTTR_ITS ---
Date of service: 09/27/23 Time of Service: 09:25 PT Notes Visit Reasons: R femoral fracture s/p ORIF, hyponatremia Inpatient Physical Therapy Treatment Note [facility] Date: 09/27/23 PRECAUTIONS: Fall, standard, activity as tolerated. NWB RLE. SUBJECTIVE: Patient reports feeling pretty good, observes that her room is cold which she really appreciates. OBJECTIVE: Supine in bed, PureWick and hip abduction pillow in place, agreeable to therapy.? PAIN: none reported VITALS: monitored by nursing staff? ? ? BED MOBILITY/TRANSFERS? Rolling L/R: not assessed Supine-sit: modified independent with bilateral side rails? Sit-supine: modified independent with bilateral side rails ? Sit-stand: SBA? Stand-sit: SBA ? Bed-Chair: Set up / clean up ? Chair-bed: Set up / clean up ? Therapeutic Exercises ([id number]): Direct one-on-one instruction in therapeutic exercises to develop strength, endurance, range of motion and flexibility. ? Exercises: * horizontal shoulder abduction vs green theraband x15 * bicep curls vs green theraband x15 with verbal and visual cues to keep resting arm straight * tricep extensions vs green theraband x15 with verbal and tactile cues for appropriate form, keeping upper arm still to maximize effort through the elbow, isolation of the tricep * seated rows vs green theraband x15 - verbal cues for scapular motion, TA activation * seated lat press downs vs green theraband x15- verbal cues for scapular motion, TA activation * seated marching x15 * seated LAQ x10 without resistance RLE, vs green theraband LLE * hamstring curls x10 vs green theraband LLE, red theraband RLE Provided skilled instruction in proper exercise performance Provided skilled manual cues to facilitate proper muscle recruitment and/or form. Neuromuscular Re-education ([id number]): Activities that facilitate re-education of movement balance, posture, coordination, and proprioception or kinesthetic sense, requiring skilled tactile and verbal cues ? Exercises/techniques: * dynamic sitting balance including feed forward activities such as reaching outside base of support, weight shifting. Feed forward activities such as perturbations applied via changes in tension on theraband. ASSESSMENT:? Patient tolerates therapy well, reports feeling muscle fatigue but no pain, no dyspnea. PLAN: Continue global strengthening per plan of care until patient is medically cleared for discharge and has a safe discharge plan. TREATMENT CODE/TIME: 37 minutes beginning at 9:25
[2023-09-27 15:44] VITALS: BP 119/77; PULSE 68; RESP 19; TEMP 36.7; O2SAT 95
[2023-09-27 19:52] VITALS: BP 121/82; PULSE 99; RESP 20; TEMP 37.2; O2SAT 96
[2023-09-27 20:03] VITALS: BP 106/68; PULSE 70; RESP 16; TEMP 37; O2SAT 93
[2023-09-27] MEDS: DULoxetine 30 MG CAP 60 MG PO (20:41)
[2023-09-27] MEDS: Melatonin 3 MG TAB 6 MG PO (20:41)
[2023-09-27] MEDS: diphenhydrAMINE 25 MG CAP PO (20:41)
[2023-09-28 03:36] VITALS: BP 111/75; PULSE 66; RESP 16; TEMP 36.1; O2SAT 98
[2023-09-28 08:43] VITALS: BP 118/77; PULSE 72; RESP 18; TEMP 37.2; O2SAT 94
[2023-09-28] MEDS: Calcium 600mg/Vit D 200U TAB 1 TAB PO (09:51)
[2023-09-28] MEDS: buPROPion-XL 150 MG TABCR 300 MG PO (09:51)
[2023-09-28] MEDS: Baclofen 10 MG TAB 40 MG PO ×3 (09:52→21:20)
[2023-09-28] MEDS: Metoprolol CR 50 MG TABCR PO (09:52)
[2023-09-28] MEDS: Modafinil 100 MG TAB 200 MG PO (09:52)
[2023-09-28] MEDS: Acetaminophen 325 MG TAB PO (09:53)
[2023-09-28] MEDS: Ferrous Sulfate 325 MG TAB PO ×2 (09:53→21:19)
[2023-09-28] MEDS: Pantoprazole 40 MG TABCR PO (09:53)
[2023-09-28] MEDS: Spironolactone 50 MG TAB PO (09:53)
[2023-09-28] MEDS: Gabapentin 300 MG CAP PO ×3 (09:53→21:19)
[2023-09-28] MEDS: Rivaroxaban 10 MG TABLET PO (09:54)
[2023-09-28] MEDS: Timolol 0.5% 5 ML BTL OU (09:54)
[2023-09-28] MEDS: Fluticasone NASAL SPRAY 16 GM BTL NS ×2 (09:54→21:20)
[2023-09-28] MEDS: Docusate Sodium 100 MG CAP PO (15:50)
--- NOTE | 2023-09-28 16:47 | PTTR_ITS ---
Date of service: 09/28/23 Time of Service: 10:10 PT Notes Visit Reasons: R femoral fracture s/p ORIF, hyponatremia Inpatient Physical Therapy Treatment Note [facility] Date: 09/28/23 PRECAUTIONS: Fall, standard, activity as tolerated. TDWB RLE. SUBJECTIVE: Patient reports back pain which tylenol has not helped with. OBJECTIVE: Sitting up in recliner, agreeable to therapy ? PAIN: Yes, in the low back. VITALS: monitored by nursing staff. Therapeutic Activities ([id number]): Direct one-on-one instruction in dynamic acti vities to improve functional performance. ? BED MOBILITY/TRANSFERS? Rolling L/R: not assessed Supine-sit: not assessed? Sit-supine: not assessed ? Sit-stand x6: SBA? Stand-sit x6: SBA ? Chair to Chair x4: Min assist, patient experienced LOB x2 which resulted in near-falls both times. Verbal and tactile cues for sequencing, balance. ? Provided skilled cues and instruction on performance and technique throughout. ? Therapeutic Exercises ([id number]): Direct one-on-one instruction in therapeutic exercises to develop strength, endurance, range of motion and flexibility. ? Exercises: performed standing on Left leg, performed with right leg only. * Standing hip abduction 2x15 * standing hip extension x15, x10 * standing hip flexion x10 Provided skilled instruction in proper exercise performance Provided skilled manual cues to facilitate proper muscle recruitment and/or form: Facilitated safe and correct performance of each exercise. ASSESSMENT:? Patient reports RLE pain after participating in this treatment session, insists that it is a good hurt. PLAN: Continue global strengthening per plan of care until patient attends follow up appointment on 10/08, then obtains safe discharge plan. TREATMENT CODE/TIME: 32 minutes beginning at 10:10
[2023-09-28 20:19] VITALS: BP 113/71; PULSE 70; RESP 16; TEMP 37.1; O2SAT 94
[2023-09-28] MEDS: DULoxetine 30 MG CAP 60 MG PO (21:19)
[2023-09-28] MEDS: Melatonin 3 MG TAB 6 MG PO (21:20)
[2023-09-29] MEDS: diphenhydrAMINE 25 MG CAP PO ×2 (01:27→20:58)
[2023-09-29] MEDS: Cyclobenzaprine 10 MG TAB 5 MG PO ×2 (03:04→20:59)
[2023-09-29 07:18] VITALS: BP 110/70; PULSE 69; RESP 18; TEMP 36.5; O2SAT 95
[2023-09-29] MEDS: buPROPion-XL 150 MG TABCR 300 MG PO (07:41)
[2023-09-29] MEDS: Calcium 600mg/Vit D 200U TAB 1 TAB PO (07:41)
[2023-09-29] MEDS: Spironolactone 50 MG TAB PO (07:41)
[2023-09-29] MEDS: Metoprolol CR 50 MG TABCR PO (07:42)
[2023-09-29] MEDS: Modafinil 100 MG TAB 200 MG PO (07:42)
[2023-09-29] MEDS: Gabapentin 300 MG CAP PO ×3 (07:42→20:57)
[2023-09-29] MEDS: Baclofen 10 MG TAB 40 MG PO ×3 (07:42→20:59)
[2023-09-29] MEDS: Pantoprazole 40 MG TABCR PO (07:43)
[2023-09-29] MEDS: Ferrous Sulfate 325 MG TAB PO ×2 (07:43→20:59)
[2023-09-29] MEDS: Rivaroxaban 10 MG TABLET PO (07:43)
[2023-09-29] MEDS: Fluticasone NASAL SPRAY 16 GM BTL NS ×2 (07:44→20:57)
[2023-09-29] MEDS: Timolol 0.5% 5 ML BTL OU (07:44)
[2023-09-29] MEDS: Dronabinol 2.5 MG CAP PO (07:48)
--- NOTE | 2023-09-29 11:28 | PTTR_ITS ---
PT Notes Visit Reasons: R femoral fracture s/p ORIF, hyponatremia Date: 09/29/23 PRECAUTIONS: Fall, standard, activity as tolerated. TDWB RLE. SUBJECTIVE: Patient in bed agreed to participating with therapy OBJECTIVE: ? PAIN: Yes, in the low back. VITALS: monitored by nursing staff. Therapeutic Activities (01126h8): Direct one-on-one instruction in dynamic activities to improve functional performance. ? BED MOBILITY/TRANSFERS? Rolling L/R: supervision Supine-sit: supervision ? Sit-supine: SBA? Sit-stand: SBA? Stand-sit: SBA ? Chair to Chair x4: Min assist stand pivot transfer going from bed to commode, commode to recliner. ? Provided skilled cues and instruction on performance and technique throughout. ? Therapeutic Exercises (29817n7): Direct one-on-one instruction in therapeutic exercises to develop strength, endurance, range of motion and flexibility. ? Exercises: performed standing on Left leg, performed with right leg only. * Seated hip flexion extension L/R [id number] * Seated hip ab/ad L/R 31a7ldx * Seated hip int/external rotation 36l3sfu * Seated knee flexion extension 18m6fei * Seated ankle pumping L/R 37x6vvi * Seated quad sets 25l9tsq * Seated glute sets 05p6smf * Seated trunk flexion extension (partial) 62c0qhm * gentle seated trunk rotation L/R 82j7nmu Provided skilled instruction in proper exercise performance Provided skilled manual cues to facilitate proper muscle recruitment and/or form: Facilitated safe and correct performance of each exercise. ASSESSMENT:? Pthad to use the commode in between session for BM, pt tolerated activity well and is happy to be able to participate with functional mobility training and therapeutic procedures. PLAN: Continue global strengthening per plan of care until patient attends follow up appointment on 10/08, then obtains safe discharge plan. TREATMENT CODE/TIME: 88610 15mins (10:30-10:45am), 78598 20mins (10:55- 11:15am).
[2023-09-29 16:25] VITALS: BP 114/70; PULSE 76; RESP 16; TEMP 36.5; O2SAT 99
[2023-09-29] MEDS: DULoxetine 30 MG CAP 60 MG PO (20:58)
[2023-09-29] MEDS: Melatonin 3 MG TAB 6 MG PO (20:59)
[2023-09-30 00:44] VITALS: BP 99/61; PULSE 65; RESP 16; TEMP 36.6; O2SAT 95
[2023-09-30 07:49] VITALS: BP 157/82; PULSE 72; RESP 16; TEMP 36.3; O2SAT 97
[2023-09-30] MEDS: Rivaroxaban 10 MG TABLET PO (07:52)
[2023-09-30] MEDS: Docusate Sodium 100 MG CAP PO ×2 (07:52→21:00)
[2023-09-30] MEDS: Spironolactone 50 MG TAB PO (07:53)
[2023-09-30] MEDS: Gabapentin 300 MG CAP PO ×3 (07:54→20:59)
[2023-09-30] MEDS: buPROPion-XL 150 MG TABCR 300 MG PO (07:54)
[2023-09-30] MEDS: Baclofen 10 MG TAB 40 MG PO ×3 (07:55→20:58)
[2023-09-30] MEDS: Calcium 600mg/Vit D 200U TAB 1 TAB PO (07:56)
[2023-09-30] MEDS: Ferrous Sulfate 325 MG TAB PO ×2 (07:56→21:01)
[2023-09-30] MEDS: Pantoprazole 40 MG TABCR PO (07:57)
[2023-09-30] MEDS: Metoprolol CR 50 MG TABCR PO (07:57)
[2023-09-30] MEDS: Modafinil 100 MG TAB 200 MG PO (07:57)
[2023-09-30] MEDS: Timolol 0.5% 5 ML BTL OU (07:58)
[2023-09-30] MEDS: Fluticasone NASAL SPRAY 16 GM BTL NS ×2 (07:59→20:57)
[2023-09-30] MEDS: Dronabinol 2.5 MG CAP PO (08:05)
[2023-09-30] MEDS: Acetaminophen 325 MG TAB PO (08:05)
--- NOTE | 2023-09-30 09:08 | PTTR_ITS ---
PT Notes Visit Reasons: R femoral fracture s/p ORIF, hyponatremia Date: 09/30/23 PRECAUTIONS: Fall, standard, activity as tolerated. TDWB RLE. SUBJECTIVE: Patient in bed agreed to participating with therapy OBJECTIVE: ? PAIN: Yes, in the low back. VITALS: monitored by nursing staff. Therapeutic Activities (00200q7): Direct one-on-one instruction in dynamic activities to improve functional performance. ? BED MOBILITY/TRANSFERS? Rolling L/R: supervision Supine-sit: supervision ? Sit-supine: SBA? Sit-stand: SBA? Stand-sit: SBA ? EOB to recliner: Min assist stand pivot transfer going from bed to recliner. ? Provided skilled cues and instruction on performance and technique throughout. ? Therapeutic Exercises 50967 : Direct one-on-one instruction in therapeutic exercises to develop strength, endurance, range of motion and flexibility. ? Exercises: performed standing on Left leg, performed with right leg only. * Seated hip flexion extension L/R 31z8zac * Seated hip ab/ad L/R 11e9nul * Seated hip int/external rotation 86z3plf * Seated knee flexion extension 92h2tsr * Seated ankle pumping L/R 88r5zmd * Seated quad sets 36y8prl * Seated glute sets 82s3ptp skilled instruction in proper exercise performance Provided skilled manual cues to facilitate proper muscle recruitment and/or form: Facilitated safe and correct performance of each exercise. ASSESSMENT:? Pt able to perform standing static activity with 2mins, 1mins duration, pt received STM on the lumbosacral junction for down regulation of muscle spasms, pt reported feeling tired but is happy she was able to participate with therapeutic procedures and transfer training going from bed to recliner. setup for side table, blanket for warmth, call carrillo post session. PLAN: Continue global strengthening per plan of care until patient attends follow up appointment on 10/08, then obtains safe discharge plan. TREATMENT CODE/TIME: 89486 13mins, 60262 10mins (8:42-9:05am).
[2023-09-30] MEDS: Melatonin 3 MG TAB 6 MG PO (20:58)
[2023-09-30] MEDS: DULoxetine 30 MG CAP 60 MG PO (20:59)
[2023-09-30] MEDS: Cyclobenzaprine 10 MG TAB 5 MG PO (20:59)
[2023-09-30] MEDS: diphenhydrAMINE 25 MG CAP PO (21:00)
[2023-10-01 00:56] VITALS: BP 96/60; PULSE 63; RESP 16; TEMP 36.3; O2SAT 95
[2023-10-01 06:46] LABS: HGB 11.2 g/dL (11.2-15.7); MCH 31.3 pg (27.0-33.0); MCHC 31.1 % (32.0-36.0); MCV 101 fL (80-95); MPV 8.3 fL (8.0-11.0); Platelet Count 375 10^3/uL (130-400); RBC 3.58 10^6/uL (3.93-5.22); RDW 14.6 % (11.7-14.6); RDW-SD 55.1 fL; WBC 5.53 10^3/uL (4.4-10.8)
[2023-10-01 07:03] LABS: Anion Gap 1.6 mmol/L (3-11); BUN 16 mg/dL (7-18); CO2 33.4 mmol/L (21.0-32.0); CREATININE 0.6 mg/dL (0.55-1.02); Calcium 9.2 mg/dL (8.5-10.1); Chloride 98 mmol/L (98-107); Estimated GFR 104.63 (mL/min/1.73m2); Glucose 104 mg/dL (74-106); Sodium 133 mmol/L (136-145)
[2023-10-01 07:22] VITALS: BP 107/70; PULSE 70; RESP 16; TEMP 36.1; O2SAT 96
[2023-10-01] MEDS: Modafinil 100 MG TAB 200 MG PO (08:28)
[2023-10-01] MEDS: Calcium 600mg/Vit D 200U TAB 1 TAB PO (08:28)
[2023-10-01] MEDS: Metoprolol CR 50 MG TABCR PO (08:28)
[2023-10-01] MEDS: Spironolactone 50 MG TAB PO (08:28)
[2023-10-01] MEDS: Rivaroxaban 10 MG TABLET PO (08:29)
[2023-10-01] MEDS: Ferrous Sulfate 325 MG TAB PO ×2 (08:29→20:51)
[2023-10-01] MEDS: Baclofen 10 MG TAB 40 MG PO ×3 (08:29→20:51)
[2023-10-01] MEDS: buPROPion-XL 150 MG TABCR 300 MG PO (08:29)
[2023-10-01] MEDS: Gabapentin 300 MG CAP PO ×3 (08:29→20:51)
[2023-10-01] MEDS: Pantoprazole 40 MG TABCR PO (08:29)
[2023-10-01] MEDS: Timolol 0.5% 5 ML BTL OU (08:34)
[2023-10-01] MEDS: Fluticasone NASAL SPRAY 16 GM BTL NS ×2 (08:34→20:54)
--- NOTE | 2023-10-01 10:33 | PTTR_ITS ---
Date of service: 10/01/23 Time of Service: 09:46 PT Notes Visit Reasons: R femoral fracture s/p ORIF, hyponatremia Inpatient Physical Therapy Treatment Note [facility] Date: 10/01/23 PRECAUTIONS: Fall, standard, activity as tolerated. NWB RLE. No excessive spinal twisting due to hx of spinal fusion. SUBJECTIVE: Patient reports having had a good weekend, daughter came to visit Sunday for lunch and visited Sunday. Reported having significant pain after therapy on Sunday and into Sunday due to spinal mobility exercises performed with physical therapy on Sunday, states that she has had several vertebrae fused years ago. OBJECTIVE: Supine in bed, agreeable to therapy.? PAIN: Yes, in the low back, but much less than before therapy yesterday. Manual techniques performed by physical therapy yesterday helped a lot. VITALS: monitored by nursing staff? BED MOBILITY/TRANSFERS? Rolling L/R: Mod I with bilateral rails Supine-sit: Mod I with bilateral rails ? Sit-supine: Mod I with bilateral rails ? Sit-stand: CGA? Stand-sit: CGA? Bed-Chair: CGA? Chair-bed: CGA Gait Training (35897b1): Direct one-on-one instruction and skilled instruction in: [] employing an assistive device [x] modified weight-bearing status [x] movement sequencing [] turning and movement with proper form [x] Provided verbal cues for equipment management and technique [x] Provided instruction in gait pattern [] Patient education regarding pacing and breathing techniques to maximize activity tolerance? GAIT? Assistive Device: FWW? Weight bearing: TDWB / NWB RLE Assist: CGA, verbal cues for gait sequence, loading weight into arms, maintaining WB precautions ? Distance:? 3 steps, plus pre-gait activities x2 minutes with rests in between - weight shifting, unweighting and picking up LLE, building patient's confidence for 3 point gait pattern.? Deviation: Patient does dump weight into shoulders with 3 point gait pattern. Continue to encourage patient to hold shoulderblades down and back, especially during ambulation. ? Therapeutic Exercises (81952f7): Direct one-on-one instruction in therapeutic exercises to develop strength, endurance, range of motion and flexibility. ? Exercises: * Bicep curls x15 vs green theraband * tricep extension x15 vs green theraband * shoulder horizontal abduction vs green theraband * UE PNF D1 extension x15 vs red theraband - verbal cues to activate TA, tactile cues to engage obliques, lower traps. * seated rows x15 vs green theraband * seated lat press downs vs green theraband Provided skilled instruction in proper exercise performance Provided skilled manual cues to facilitate proper muscle recruitment and/or form. Neuromuscular Re-education (35230q4): Activities that facilitate re-education of movement balance, posture, coordination, and proprioception or kinesthetic sense, requiring skilled tactile and verbal cues ? Exercises/techniques: * seated dynamic balance activities including perturbations, reaching activities for reaching outside JOSE. ASSESSMENT:? Patient tolerates therapy well, reports feeling comfortable in wheelchair at end of session as it has a good amount of lumbar support. PLAN: Continue global strengthening per plan of care until patient obtains a safe discharge plan. TREATMENT CODE/TIME: 40 minutes beginning at 9:46
[2023-10-01 14:59] VITALS: BP 120/83; PULSE 70; RESP 16; TEMP 37.1; O2SAT 98
[2023-10-01] MEDS: DULoxetine 30 MG CAP 60 MG PO (20:51)
[2023-10-01] MEDS: Docusate Sodium 100 MG CAP PO (20:51)
[2023-10-01] MEDS: diphenhydrAMINE 25 MG CAP PO (20:51)
[2023-10-01] MEDS: Melatonin 3 MG TAB 6 MG PO (20:52)
[2023-10-01] MEDS: Acetaminophen 325 MG TAB PO (20:55)
[2023-10-02 00:45] VITALS: BP 107/65; PULSE 68; RESP 18; TEMP 36.3; O2SAT 96
[2023-10-02 08:24] VITALS: BP 113/71; PULSE 74; RESP 18; TEMP 36.2; O2SAT 96
[2023-10-02] MEDS: Timolol 0.5% 5 ML BTL OU (08:47)
[2023-10-02] MEDS: Ferrous Sulfate 325 MG TAB PO ×2 (08:48→20:45)
[2023-10-02] MEDS: Spironolactone 50 MG TAB PO (08:48)
[2023-10-02] MEDS: Pantoprazole 40 MG TABCR PO (08:48)
[2023-10-02] MEDS: Metoprolol CR 50 MG TABCR PO (08:48)
[2023-10-02] MEDS: Calcium 600mg/Vit D 200U TAB 1 TAB PO (08:49)
[2023-10-02] MEDS: Baclofen 10 MG TAB 40 MG PO ×3 (08:49→20:46)
[2023-10-02] MEDS: Gabapentin 300 MG CAP PO ×3 (08:49→20:48)
[2023-10-02] MEDS: buPROPion-XL 150 MG TABCR 300 MG PO (08:49)
[2023-10-02] MEDS: Fluticasone NASAL SPRAY 16 GM BTL NS ×2 (08:50→20:43)
[2023-10-02] MEDS: Modafinil 100 MG TAB 200 MG PO (08:50)
--- NOTE | 2023-10-02 15:24 | W.PM.PROGNOT ---
Date of Service Date of service: 10/02/23 Time of Service: 15:24 Assessment and Plan Assessment and plan (1) Hyponatremia: Status: Acute Assessment and plan: Sodium remains stable at 133 Desmopressin has been discontinued definitively. The patient was taking 0.2 mg of desmopression qhs at home, likely making the dose she received at [facility] excessive. Continue to monitor neurochecks if needed (2) Right femoral fracture: Status: Acute Assessment and plan: S/p ORIF [facility]. As previously planned Continue PT, OT, wound care Seen by orthopedics: touchdown weightbearing to RLE. received Xarelto 10 mg daily through 09/28/2023, per ortho. F/U at [facility] ( ?) 2 weeks from previous, Nursing to call to verify date Qualifiers: Encounter type: sequela Femur location: unspecified portion of femur Fracture morphology: other fracture Fracture type: closed Qualified Code(s): S72.8X1S - Other fracture of right femur, sequela (3) Urinary incontinence: Status: Acute Assessment and plan: Desmopressin definitively discontinued. Consider bladder scans PRN Qualifiers: Urinary Incontinence type: other incontinence Qualified Code(s): N39.498 - Other specified urinary incontinence (4) Hypertension: Status: Chronic Assessment and plan: As previously discussed Continue spironolactone, Toprol-XL. Still holding lisinopril due to hyponatremia. Qualifiers: Hypertension type: primary hypertension Qualified Code(s): I10 - Essential (primary) hypertension (5) Secondary progressive multiple sclerosis: Status: Acute Assessment and plan: Will continue duloxetine, baclofen, Wellbutrin, Provigil. PT/OT consulted an in progress (6) Anemia: Status: Acute Assessment and plan: H/H remains stable. No active bleeding reported or seen Qualifiers: Anemia type: other cause Other causes of anemia: acute posthemorrhagic Qualified Code(s): D62 - Acute posthemorrhagic anemia (7) DVT prophylaxis: Status: Deleted Assessment and plan: rivaroxaban until 09/28 as per ortho (being used specifically for DVT ppx) not bed bound, on rehabilitation status (8) Discharge planning issues: Status: Deleted Assessment and plan: CM to f/u on date for [facility] appointment pending discussed with Dr Solorio Subjective Subjective Patient reports: no new complaints, feels better, tolerating liquids well, tolerating a regular diet and afebrile; denies shortness of breath Interval history since last seen: progressing well with rehabilitation, medically remains stable. voiding well, no constipation. Objective Last Vital Signs Temp 36.2 C L 10/02/23 08:24 Pulse 74 10/02/23 08:24 Resp 18 10/02/23 08:24 BP 113/71 10/02/23 08:24 Pulse Ox 96 10/02/23 08:24 Time Spent with Patient Time Spent with Patient: 25-34 minutes Time was spent: preparing to see the patient(eg.review tests), obtaining and/or reviewing separately otained hiistory, ordering medications,tests, procedures, indepentently interpreting results and counseling the patient
[2023-10-02 15:47] VITALS: BP 111/76; PULSE 70; RESP 18; TEMP 36.1; O2SAT 96
--- NOTE | 2023-10-02 16:47 | PTTR_ITS ---
Date of service: 10/02/23 Time of Service: 09:24 PT Notes Visit Reasons: R femoral fracture s/p ORIF, hyponatremia Inpatient Physical Therapy Treatment Note [facility] Date: 10/02/23 PRECAUTIONS: Fall, standard, activity as tolerated. NWB RLE. SUBJECTIVE: Patient feels good. OBJECTIVE: Supine in bed, agreeable to therapy ? PAIN: none reported VITALS: monitored by nursing staff? ? BED MOBILITY/TRANSFERS? Rolling L/R: independent Supine-sit: independent with bilateral side rails ? Sit-supine: independent with bilateral side rails ? Sit-stand: SBA ? Stand-sit: SBA ? Bed-Chair: CGA, stand pivot ? Chair-bed: CGA, stand pivot Gait Training (79943y4): Direct one-on-one instruction and skilled instruction in: [x] pre-gait activities [x] employing an assistive device [x] modified weight-bearing status [x] movement sequencing [x] turning and movement with proper form [x] Provided verbal cues for equipment management and technique [x] Provided instruction in gait pattern [] Patient education regarding pacing and breathing techniques to maximize activity tolerance? GAIT? Assistive Device: FWW ? Weight bearing: NWB RLE Assist: CGA, verbal cues? Distance:? 3 small hops, approximately 1.5 feet? Deviation: Left foot drop, left foot does not clear the floor. Patient unable to hop backwards. Patient highly anxious about ambulation, requires multiple reassurances. ? Therapeutic Exercises (58617b7): Direct one-on-one instruction in therapeutic exercises to develop strength, endurance, range of motion and flexibility. ? Exercises: * standing RLE hip abduction 2x15 * standing RLE hip extension 2x15 * RLE LAQ's 1x10 with 2.5 lb ankle weight * chair pushups 1x10 Provided skilled instruction in proper exercise performance Provided skilled manual cues to facilitate proper muscle recruitment and/or form. ASSESSMENT:? Patient tolerates therapy well, is pleased to have added weight to RLE exercise. PLAN: Continue global strengthening per plan of care until patient attends follow up ortho appointment and is cleared safe to return home. TREATMENT CODE/TIME: 48 minutes beginning at 9:24
[2023-10-02] MEDS: Polyethylene Glycol 3350 17 GM PACKET PO (20:44)
[2023-10-02] MEDS: Melatonin 3 MG TAB 6 MG PO (20:45)
[2023-10-02] MEDS: Acetaminophen 325 MG TAB PO (20:46)
[2023-10-02] MEDS: DULoxetine 30 MG CAP 60 MG PO (20:47)
[2023-10-02] MEDS: diphenhydrAMINE 25 MG CAP PO (20:47)
[2023-10-02 23:20] VITALS: BP 137/81; PULSE 61; RESP 16; TEMP 36.3; O2SAT 94
[2023-10-03] MEDS: Spironolactone 50 MG TAB PO (07:46)
[2023-10-03] MEDS: Metoprolol CR 50 MG TABCR PO (07:46)
[2023-10-03] MEDS: Baclofen 10 MG TAB 40 MG PO ×3 (07:46→19:42)
[2023-10-03] MEDS: Calcium 600mg/Vit D 200U TAB 1 TAB PO (07:46)
[2023-10-03] MEDS: Docusate Sodium 100 MG CAP PO (07:46)
[2023-10-03] MEDS: Ferrous Sulfate 325 MG TAB PO ×2 (07:46→19:42)
[2023-10-03] MEDS: Gabapentin 300 MG CAP PO ×3 (07:46→19:42)
[2023-10-03] MEDS: Modafinil 100 MG TAB 200 MG PO (07:47)
[2023-10-03] MEDS: Polyethylene Glycol 3350 17 GM PACKET PO (07:47)
[2023-10-03] MEDS: Pantoprazole 40 MG TABCR PO (07:47)
[2023-10-03] MEDS: buPROPion-XL 150 MG TABCR 300 MG PO (07:47)
[2023-10-03] MEDS: Fluticasone NASAL SPRAY 16 GM BTL NS ×2 (07:47→19:41)
[2023-10-03] MEDS: Timolol 0.5% 5 ML BTL OU (07:47)
[2023-10-03 07:55] VITALS: BP 119/73; PULSE 65; RESP 18; TEMP 36.4; O2SAT 97
--- NOTE | 2023-10-03 14:20 | PTTR_ITS ---
Date of service: 10/03/23 Time of Service: 13:54 PT Notes Visit Reasons: R femoral fracture s/p ORIF, hyponatremia Inpatient Physical Therapy Treatment Note [facility] Date: 10/03/23 PRECAUTIONS: Fall, standard, activity as tolerated. NWB RLE. SUBJECTIVE: Patient feels good. Excited to see her family tomorrow. Hoping to have a shower between now and then. Reports that she did touch down with RLE during transfer to [facility] earlier today, but doesn't think she put too much weight through RLE. OBJECTIVE: Patient reclined in bed, agreeable to therapy. No abduction pillow in place. ? PAIN: none reported VITALS: monitored by nursing staff. ? ? ? BED MOBILITY/TRANSFERS? Rolling L/R: Independent Supine-sit: Independent with bilateral side rails ? Sit-supine: Independent with bilateral side rails ? Sit-stand: SBA ? Stand-sit: SBA ? Bed-Chair: CGA ? Chair-bed: CGA Gait Training (66563w4): Direct one-on-one instruction and skilled instruction in: [x] employing an assistive device [x] modified weight-bearing status [x] movement sequencing [x] turning and movement with proper form [] Provided verbal cues for equipment management and technique [x] Provided instruction in gait pattern [] Patient education regarding pacing and breathing techniques to maximize activity tolerance? GAIT? Assistive Device: FWW ? Weight bearing: full Assist: CGA ? Distance:? 5 feet? Deviation: Patient's left foot has foot drop, does not clear the floor when hopping forward. Unable to hop backward. Patient demonstrates increased ability to bear weight through arms and into walker, increased confidence in ability to maintain weightbearing precautions with short distance ambulation. ? Therapeutic Exercises (45057p6): Direct one-on-one instruction in therapeutic exercises to develop strength, endurance, range of motion and flexibility. ? Exercises: * shoulder horizontal abduction vs blue theraband x10 - verbal cues to squeeze shoulderblades at end range * bicep curls vs blue theraband x10 * tricep extensions vs blue theraband x10 * rows vs blue theraband x10 * lat press downs vs blue theraband x10 * LAQ's vs 2.5 lb weight x10 * seated marching x10, 2.5 lb weight LLE, no weight RLE ASSESSMENT:? Patient reports that her arms are more fatigued using the blue band, even with fewer reps, which is good, that's what we want. Reports that she is going to feel the RLE marching later. Grimaces. PLAN: Continue global strengthening per plan of care until patient attends ortho follow up with updated WB status and is deemed safe to return home. TREATMENT CODE/TIME: 25 minutes beginning at 13:54
[2023-10-03 15:57] VITALS: BP 115/74; PULSE 64; RESP 18; TEMP 36.5; O2SAT 94
[2023-10-03] MEDS: DULoxetine 30 MG CAP 60 MG PO (21:47)
[2023-10-03] MEDS: Melatonin 3 MG TAB 6 MG PO (21:47)
[2023-10-03 23:34] VITALS: BP 109/68; PULSE 61; RESP 18; TEMP 35.9; O2SAT 94
[2023-10-04 07:40] VITALS: BP 130/81; PULSE 68; RESP 22; TEMP 36.7; O2SAT 98
[2023-10-04] MEDS: Baclofen 10 MG TAB 40 MG PO ×3 (08:33→21:09)
[2023-10-04] MEDS: Pantoprazole 40 MG TABCR PO (08:34)
[2023-10-04] MEDS: buPROPion-XL 150 MG TABCR 300 MG PO (08:34)
[2023-10-04] MEDS: Metoprolol CR 50 MG TABCR PO (08:35)
[2023-10-04] MEDS: Docusate Sodium 100 MG CAP PO (08:35)
[2023-10-04] MEDS: Gabapentin 300 MG CAP PO ×3 (08:36→21:08)
[2023-10-04] MEDS: Calcium 600mg/Vit D 200U TAB 1 TAB PO (08:36)
[2023-10-04] MEDS: Modafinil 100 MG TAB 200 MG PO (08:36)
[2023-10-04] MEDS: Ferrous Sulfate 325 MG TAB PO ×2 (08:36→21:09)
[2023-10-04] MEDS: Spironolactone 50 MG TAB PO (08:36)
[2023-10-04] MEDS: Timolol 0.5% 5 ML BTL OU (08:37)
[2023-10-04] MEDS: Fluticasone NASAL SPRAY 16 GM BTL NS ×2 (08:38→21:08)
[2023-10-04 15:18] VITALS: BP 117/75; PULSE 74; RESP 16; TEMP 36.8; O2SAT 95
[2023-10-04] MEDS: diphenhydrAMINE 25 MG CAP PO (21:08)
[2023-10-04] MEDS: Melatonin 3 MG TAB 6 MG PO (21:09)
[2023-10-04] MEDS: DULoxetine 30 MG CAP 60 MG PO (21:09)
[2023-10-04 22:58] VITALS: BP 99/64; PULSE 74; RESP 16; TEMP 36.7; O2SAT 94
[2023-10-05 08:46] VITALS: BP 119/74; PULSE 84; RESP 18; TEMP 37.1; O2SAT 96
[2023-10-05] MEDS: Calcium 600mg/Vit D 200U TAB 1 TAB PO (08:56)
[2023-10-05] MEDS: Metoprolol CR 50 MG TABCR PO (08:57)
[2023-10-05] MEDS: Baclofen 10 MG TAB 40 MG PO ×3 (08:57→20:47)
[2023-10-05] MEDS: Spironolactone 50 MG TAB PO (08:57)
[2023-10-05] MEDS: Modafinil 100 MG TAB 200 MG PO (08:57)
[2023-10-05] MEDS: Ferrous Sulfate 325 MG TAB PO ×2 (08:58→20:47)
[2023-10-05] MEDS: Pantoprazole 40 MG TABCR PO (08:58)
[2023-10-05] MEDS: Docusate Sodium 100 MG CAP PO (08:59)
[2023-10-05] MEDS: Polyethylene Glycol 3350 17 GM PACKET PO (08:59)
[2023-10-05] MEDS: Fluticasone NASAL SPRAY 16 GM BTL NS ×2 (08:59→20:47)
[2023-10-05] MEDS: buPROPion-XL 150 MG TABCR 300 MG PO (08:59)
[2023-10-05] MEDS: Gabapentin 300 MG CAP PO ×3 (08:59→20:47)
[2023-10-05] MEDS: Timolol 0.5% 5 ML BTL OU (09:00)
[2023-10-05 15:40] VITALS: BP 115/73; PULSE 74; RESP 18; TEMP 37; O2SAT 96
--- NOTE | 2023-10-05 16:49 | PT.INPN ---
PT Notes Visit Reasons: R femoral fracture s/p ORIF, hyponatremia Swing Bed Level I Physical Therapy Progress Note Date: 10/05/2023 Dates of Service: 09/27/2023 through 10/05/2023 Precautions: Standard. Fall risk. Per Dr. Swan as of 09/17/23 TDWB on the R LE until 10/10/2023; 50% PWB beginning 10/11/2023 using FWW. Posterior hip precautions in place. Patient Profile/Admitting Diagnosis: S/P Open reduction and intramedullary fixation of R intertrochnateric fracture of R femur on 07/10/2023. S/P removal of previous IMN and replacement of new IMN of R periprosthetic fracture of R femur on 08/18/2023. S/P Long-stemmed R posterior hip revision/BELEN at [facility] on 08/29/2023. Readmitted to [facility] on 09/14/2023 for continued rehabilitation with PT re-evaluaiton done on 09/15/2023. Steffi converted to Swing Bed Level I as of 09/18/2023 and is re-evaluated for continued rehabilitation S/P revision R posterior BELEN. She is here for continued rehabilitation to achieve highest functional mobility level. PMHX: All Active Problems (Updated 09/14/23 @ 20:[address] MD) Depression (Chronic) Secondary progressive multiple sclerosis (Acute) Hypertension (Chronic) Urinary incontinence (Acute) Right femoral fracture (Acute) Thrombocytosis (Acute) Hypoalbuminemia (Acute) Hyponatremia (Acute) Anemia due to blood loss (Acute) Closed right femoral fracture (Acute) Closed comminuted intertrochanteric fracture of right femur (Acute ~06/2023) Open reduction and intramedullary fixation DOS: 07/10/2023Foot pain (Acute) Arthritis (Acute) Pes planus (Acute) Anemia (Acute) Essential hypertension (Chronic 09/02/13) Foot drop, left (Acute 05/17/15) Multiple sclerosis (Chronic 1991) Neurogenic bladder (Acute 01/13/16) Spasticity (Chronic 05/17/15) Synovial cyst of popliteal space (Acute) Urge incontinence of urine (Acute 08/08/12) Memory loss (Chronic) Depression (Chronic) Fatigue (Acute) Acquired pes planus of right foot (Chronic) chronic pain in foot; possible surgery Medical History Murmur, cardiac Closed subcapital fracture of left femur S/P L BELEN --DOS 03/15/22 Spinal stenosis of lumbar region with radiculopathy GERD (gastroesophageal reflux disease) Left carpal tunnel syndrome managed non-surgicallyOptic neuritis Surgical History Status post lumbar laminectomy (~07/2022) 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 Patient stresses that would really need for her to be at her most independent to make sure that risk for falls is low. Objective: General Observation: Abduction wedge resized for patient. Optiloc dressings to bony areas in B ankles noted. Surgical incision in the R lateral thigh well approximated and healing well. R thigh swelling decreasing. B feet pes planus. Mental Status: A&Ox3. Pleasant and cooperative throughout. Pain: None reported at rest ROM: R Lower Extremity: In standing, able to abduct at the R hip about 20 degrees, extend to about 10 degrees. Knee flexion to 90 degrees. Ankle DF between 10-15 degrees. Hip flexion to 90 degrees only due to posterior hip precautions. Strength: Right Lower Extremity: Hip flexors 3-/5. Hip abductors 3-/5. Knee flexors 3-/5. Ankle DF'ors 3-/5. Left Lower Extremity: WFL. Able to perform active SLR and heel slide without difficulty or discomfort. Sensation: Intact as to pain and light pressure in B LE Bed Mobility/Transfers: (per 09/18/2023 PRODUCT SAFETY ENGINEER note)? Rolling L/R: Modified independent with bilateral side rails. Patient does not have hospital bed at home. Supine-sit: Modified independent with bilateral side rails. Patient does not have hospital bed at home. ? Sit-supine: Modified independent with bilateral side rails. Patient does not have hospital bed at home. ? Sit-stand: Minimal assist with cues to not bend trunk too much forward to observe posterior hip precautions ? Stand-sit: Contact guard assist to back to control descent onto transfer surface/chair? Chair-bed: Minimal assist with cues to not bend trunk too much forward to observe posterior hip precautions ? ? Gait: ? Now able to jhop up to 5 teps using FWW, NWB in the R LE with CGA Balance: Static Sitting: Good Dynamic Sitting: Fair Static Standing: Fair Dynamic Standing: Fair Special Tests: Mobility Limitations Standardized Measure [facility] AM-PAC 6 clicks Basic Mobility Inpatient Short Form: Raw Score: 18 CMS Score: 47% impairment Informed Consent/Education: Patient instructed in purpose of PT consult and plan of care. Agreeable to progressing mobility level, strength, and activity tolerance in sitting and standing under swing bed levle of care. ASSESSMENT: Abduction pillow has been resized. Seated strengthening ongoing. Transfer level improving. Patient progresses to 50% WB at end of this month (as of 10/11/2023). Has an orthopedic follow up on 10/08/2023. Progressed patient to standing level exercises to slowly increase range of R hip extensors and R hip abductors as of today. Patient presents with clinical signs and symptoms consistent with post-op status. Was transferred from [facility] to ICU yesterday due to drop in sodium. Appears to be holding up much better this morning. Sounds so the plan is to transfer her back to [facility]. She currently as demonstrated by the following impairment level findings: 1. decreased activity tolerance 2. decreased RLE ROM 3. chronic gait impairments Impairments are contributing to the following functional limitations: 1. unable to tolerate sitting 2. unable to transfer 3. unable to ambulate Patient is assessed as Moderate 55637 moderate complexity based on the following: History: Patient is a 58 year old female with MS, following R BELEN 08/29/23. She has acute on chronic mobility impairments. Examination: functional limitations as noted above Presentation: Evolving Decision Makin moderate moderate complexity Goals: Goals X1 week 1. Supine-Sit independent MET. DISCHARGE. 2. Sit-Supine independent MET. DISCHARGE. 3. Sit-Stand independent with FWW NOT MET. CONTINUE. 4. Stand-Sit independent with FWW NOT MET. CONTINUE. 5. Bed-Chair independent with FWW NOT MET. CONTINUE. 6. Chair-Bed independent with FWW NOT MET. CONTINUE. 7. Gait 10 ft with RW stand bby assist while observing TDWB on the R using FWW. NOT MET. CONTINUE. PLAN OF CARE/TREATMENT PLAN: 1x/day, 5 days/week x 2 weeks. Plan of care has been reviewed with the PRODUCT SAFETY ENGINEER providing the service under Physical Therapy direction. Initiate Physical Therapy intervention for strengthening, bed mobility, transfers, gait, stairs, balance training, use of assistive device: Continue to premedicate for pain and for MS to maximize functional performance. Patient to perform PREs to B UE and trunk as tolerated using 1-2 lb weight x 10-15 reps while sitting at EOB. CONTINUE Patient to use 1 lb AW to B LE while performing PRES x 10-15 reps. CONTINUE Provide adequate rests in between to prevent fatigue due to MS. CONTINUE Transfer to bedside chair leading with GOOD L LE at all times -- position bedside chair to allow for this at all times. Patient may transfer back to bed after lunch with nursing staff. NEW: Patient to perform seated exercises on her own and to do standing level exercises with PT in [facility] therapy room after lunch from Mondays through Fridays. DISCHARGE RECOMMENDATIONS: SNF vs HH PT based on progress towards goals. TREATMENT CODE/TIME: 10453 x 10 minutes for 1 unit beginning at 16:49 PM. Thank you for the opportunity to participate in the care of this patient. Katharina Galvez PT, DPT, CLT [facility] [place], [place]
[2023-10-05 20:00] VITALS: BP 119/76; PULSE 60; RESP 15; TEMP 36.5; O2SAT 94
[2023-10-05] MEDS: diphenhydrAMINE 25 MG CAP PO (21:06)
[2023-10-05] MEDS: Melatonin 3 MG TAB 6 MG PO (21:06)
[2023-10-05] MEDS: Acetaminophen 325 MG TAB PO (21:07)
[2023-10-05] MEDS: DULoxetine 30 MG CAP 60 MG PO (21:07)
[2023-10-06 01:27] VITALS: BP 119/76; PULSE 60; RESP 15; TEMP 36.5; O2SAT 94
[2023-10-06 08:18] VITALS: BP 124/86; PULSE 76; RESP 18; TEMP 36.3; O2SAT 99
[2023-10-06] MEDS: Baclofen 10 MG TAB 40 MG PO ×3 (08:24→21:09)
[2023-10-06] MEDS: Normal Saline Flush 10 ML SYR IVP (08:24)
[2023-10-06] MEDS: Calcium 600mg/Vit D 200U TAB 1 TAB PO (08:24)
[2023-10-06] MEDS: Modafinil 100 MG TAB 200 MG PO (08:25)
[2023-10-06] MEDS: Spironolactone 50 MG TAB PO (08:26)
[2023-10-06] MEDS: Ferrous Sulfate 325 MG TAB PO ×2 (08:26→21:09)
[2023-10-06] MEDS: Metoprolol CR 50 MG TABCR PO (08:26)
[2023-10-06] MEDS: Gabapentin 300 MG CAP PO ×3 (08:27→21:07)
[2023-10-06] MEDS: buPROPion-XL 150 MG TABCR 300 MG PO (08:27)
[2023-10-06] MEDS: Pantoprazole 40 MG TABCR PO (08:27)
[2023-10-06] MEDS: Timolol 0.5% 5 ML BTL OU (08:28)
[2023-10-06] MEDS: Fluticasone NASAL SPRAY 16 GM BTL NS ×2 (10:30→21:07)
[2023-10-06 15:21] VITALS: BP 126/83; PULSE 69; RESP 18; TEMP 36.2; O2SAT 96
[2023-10-06] MEDS: Acetaminophen 325 MG TAB PO (21:06)
[2023-10-06] MEDS: diphenhydrAMINE 25 MG CAP PO (21:08)
[2023-10-06] MEDS: DULoxetine 30 MG CAP 60 MG PO (21:08)
[2023-10-06] MEDS: Melatonin 3 MG TAB 6 MG PO (21:09)
[2023-10-06 23:40] VITALS: BP 98/63; PULSE 67; RESP 18; TEMP 36.1; O2SAT 94
[2023-10-07 07:33] VITALS: BP 116/73; PULSE 65; RESP 18; TEMP 35.7; O2SAT 96
[2023-10-07] MEDS: Calcium 600mg/Vit D 200U TAB 1 TAB PO (07:40)
[2023-10-07] MEDS: Metoprolol CR 50 MG TABCR PO (07:40)
[2023-10-07] MEDS: Baclofen 10 MG TAB 40 MG PO ×3 (07:41→20:14)
[2023-10-07] MEDS: Modafinil 100 MG TAB 200 MG PO (07:42)
[2023-10-07] MEDS: buPROPion-XL 150 MG TABCR 300 MG PO (07:42)
[2023-10-07] MEDS: Spironolactone 50 MG TAB PO (07:43)
[2023-10-07] MEDS: Gabapentin 300 MG CAP PO ×3 (07:44→20:15)
[2023-10-07] MEDS: Ferrous Sulfate 325 MG TAB PO ×2 (07:44→20:15)
[2023-10-07] MEDS: Pantoprazole 40 MG TABCR PO (07:45)
[2023-10-07] MEDS: Timolol 0.5% 5 ML BTL OU (09:06)
[2023-10-07] MEDS: Fluticasone NASAL SPRAY 16 GM BTL NS ×2 (09:07→20:14)
[2023-10-07 14:54] VITALS: BP 119/77; PULSE 71; RESP 17; TEMP 36.3; O2SAT 95
[2023-10-07 19:45] VITALS: BP 111/73; PULSE 68; RESP 17; TEMP 36.2; O2SAT 93
[2023-10-07] MEDS: Docusate Sodium 100 MG CAP PO (20:14)
[2023-10-07] MEDS: Melatonin 3 MG TAB 6 MG PO (21:42)
[2023-10-07] MEDS: DULoxetine 30 MG CAP 60 MG PO (21:42)
[2023-10-07] MEDS: diphenhydrAMINE 25 MG CAP PO (21:42)
[2023-10-08 07:27] LABS: Abs Immature Grans 0.04 10^3/uL (0.0-0.06); Absolute Basophil Count 0.06 10^3/uL (0.0-0.2); Absolute Eosinophil Count 0.19 10^3/uL (0.0-0.7); Absolute Lymphocyte Count 1.58 10^3/uL (1.2-3.4); Absolute Monocyte Count 0.67 10^3/uL (0.1-0.8); Absolute Neutrophil Count 3.98 10^3/uL (1.2-6.7); Basophils % 0.9; Eosinophils % 2.9; HCT 36.6 % (36.0-46.0); HGB 11.8 g/dL (11.2-15.7); Immature Grans % 0.6; Lymphocytes % 24.2; MCH 31.1 pg (27.0-33.0); MCHC 32.2 % (32.0-36.0); MCV 97 fL (80-95); Monocytes % 10.3; Neutrophils % 61.1; Platelet Count 428 10^3/uL (130-400); RBC 3.79 10^6/uL (3.93-5.22); RDW-SD 50.4 fL; WBC 6.52 10^3/uL (4.4-10.8)
[2023-10-08 07:43] LABS: Anion Gap 7.3 mmol/L (3-11); BUN 20 mg/dL (7-18); CO2 30.7 mmol/L (21.0-32.0); CREATININE 0.6 mg/dL (0.55-1.02); Calcium 8.9 mg/dL (8.5-10.1); Chloride 97 mmol/L (98-107); Estimated GFR 104.63 (mL/min/1.73m2); Glucose 107 mg/dL (74-106); Magnesium 1.9 mg/dL (1.8-2.4); Potassium 4.3 mmol/L (3.5-5.1); Sodium 135 mmol/L (136-145)
[2023-10-08 07:54] VITALS: BP 115/76; PULSE 70; RESP 16; TEMP 36.7; O2SAT 96
[2023-10-08] MEDS: Timolol 0.5% 5 ML BTL OU (10:02)
[2023-10-08] MEDS: Fluticasone NASAL SPRAY 16 GM BTL NS ×2 (10:02→20:59)
[2023-10-08] MEDS: Spironolactone 50 MG TAB PO (10:03)
[2023-10-08] MEDS: buPROPion-XL 150 MG TABCR 300 MG PO (10:03)
[2023-10-08] MEDS: Calcium 600mg/Vit D 200U TAB 1 TAB PO (10:03)
[2023-10-08] MEDS: Modafinil 100 MG TAB 200 MG PO (10:03)
[2023-10-08] MEDS: Gabapentin 300 MG CAP PO ×2 (10:03→21:00)
[2023-10-08] MEDS: Baclofen 10 MG TAB 40 MG PO ×2 (10:03→21:00)
[2023-10-08] MEDS: Ferrous Sulfate 325 MG TAB PO ×2 (10:03→21:00)
[2023-10-08] MEDS: Metoprolol CR 50 MG TABCR PO (10:04)
[2023-10-08] MEDS: Pantoprazole 40 MG TABCR PO (10:04)
--- NOTE | 2023-10-08 12:25 | NT_ITS ---
Date of service: 10/08/23 PT Notes Visit Reasons: R femoral fracture s/p ORIF, hyponatremia Presented to patient room for treatment, but she was leaving for transfer to [facility] for OP MD apt. Will resume tomorrow.
--- NOTE | 2023-10-08 12:25 | PT.INNT ---
Date of service: 10/08/23 PT Notes Visit Reasons: R femoral fracture s/p ORIF, hyponatremia Presented to patient room for treatment, but she was leaving for transfer to [facility] for OP MD apt. Will resume tomorrow.
[2023-10-08 20:58] VITALS: BP 114/74; PULSE 66; RESP 18; TEMP 36.5; O2SAT 95
[2023-10-08] MEDS: Melatonin 3 MG TAB 6 MG PO (21:00)
[2023-10-08] MEDS: DULoxetine 30 MG CAP 60 MG PO (21:00)
[2023-10-09 07:41] VITALS: BP 123/76; PULSE 70; RESP 18; TEMP 36.8; O2SAT 95
[2023-10-09] MEDS: Fluticasone NASAL SPRAY 16 GM BTL NS ×2 (09:08→21:07)
[2023-10-09] MEDS: Baclofen 10 MG TAB 40 MG PO ×3 (09:09→21:02)
[2023-10-09] MEDS: buPROPion-XL 150 MG TABCR 300 MG PO (09:09)
[2023-10-09] MEDS: Calcium 600mg/Vit D 200U TAB 1 TAB PO (09:10)
[2023-10-09] MEDS: Pantoprazole 40 MG TABCR PO (09:10)
[2023-10-09] MEDS: Ferrous Sulfate 325 MG TAB PO ×2 (09:11→21:02)
[2023-10-09] MEDS: Spironolactone 50 MG TAB PO (09:11)
[2023-10-09] MEDS: Modafinil 100 MG TAB 200 MG PO (09:11)
[2023-10-09] MEDS: Gabapentin 300 MG CAP PO ×3 (09:11→21:02)
[2023-10-09] MEDS: Timolol 0.5% 5 ML BTL OU (09:12)
[2023-10-09] MEDS: Metoprolol CR 50 MG TABCR PO (09:12)
[2023-10-09] MEDS: Acetaminophen 325 MG TAB PO (13:59)
--- NOTE | 2023-10-09 14:02 | PT.INTREAT ---
Date of service: 10/09/23 Time of Service: 13:25 PT Notes Visit Reasons: R femoral fracture s/p ORIF, hyponatremia Inpatient Physical Therapy Treatment Note [facility] Date: 10/09/23 PRECAUTIONS: Fall, standard, activity as tolerated. NEW UPGRADED WB TO PWB 50%. SUBJECTIVE: Patient reports feeling good. Reports upgraded wb precautions, confirmed by CM. Reports that the boot device that she typically wears on the RLE inside her shoe needs to be sent away for repairs, and in the interim she will need a lift in her shoe. OBJECTIVE: Sitting up in recliner, agreeable to therapy. Needs post op shoe RLE to minimize leg length discrepancy, approved by DPT Katharina Galvez and ordered by Dr. Lane. ? PAIN: yes, 05/21 in low back. VITALS: monitored by nursing staff. ? ? ? BED MOBILITY/TRANSFERS? Rolling L/R: not assessed Supine-sit: not assessed ? Sit-supine: not assessed ? Sit-stand: independent ? Stand-sit: independent ? Bed-Chair: SBA ? Chair-bed: SBA Gait Training ([id number]): Direct one-on-one instruction and skilled instruction in: [] employing an assistive device [x] modified weight-bearing status [x] movement sequencing [] turning and movement with proper form [] Provided verbal cues for equipment management and technique [x] Provided instruction in gait pattern [] Patient education regarding pacing and breathing techniques to maximize activity tolerance? GAIT? Assistive Device: FWW? Weight bearing: PWB 50% RLE Assist: SBA ? Distance:? 15 feet, seated rest x2? Deviation: Due to congenital leg length discrepancy, asymmetric gait noted. Patient hinges forward and the hip, reports increased back pain with ambulation. ? ASSESSMENT:? patient tolerates therapy well, no SOB, no LOB, returns to sit comfortably in recliner at end of treatment session. PLAN: Strengthen core to support spine. Continue global strengthening per plan of care until patient is safe to return home. TREATMENT CODE/TIME: 33 minutes beginning at 13:25
[2023-10-09 15:35] VITALS: BP 113/73; PULSE 74; RESP 18; TEMP 36.9; O2SAT 95
--- NOTE | 2023-10-09 17:52 | W.PM.PROGNOT ---
Date of Service Date of service: 10/09/23 Time of Service: 17:52 Assessment and Plan Assessment and plan (1) Hyponatremia: Status: Resolved Assessment and plan: Sodium remains stable at 135 Desmopressin has been discontinued definitively. The patient was taking 0.2 mg of desmopression qhs at home, likely making the dose she received at [facility] excessive. (2) Right femoral fracture: Status: Acute Assessment and plan: S/p ORIF [facility]. As previously planned Continue PT, OT, wound care Seen by orthopedics: Advance to 50% weightbearing to RLE. received Xarelto 10 mg daily through 09/28/2023, per ortho. working on transfers and when safe to transfer can discharge home Qualifiers: Encounter type: sequela Femur location: unspecified portion of femur Fracture type: closed Fracture morphology: other fracture Qualified Code(s): S72.8X1S - Other fracture of right femur, sequela (3) Urinary incontinence: Status: Acute Assessment and plan: Desmopressin definitively discontinued. Consider bladder scans PRN Qualifiers: Urinary Incontinence type: other incontinence Qualified Code(s): N39.498 - Other specified urinary incontinence (4) Hypertension: Status: Chronic Assessment and plan: As previously discussed Continue spironolactone, Toprol-XL. Still holding lisinopril due to hyponatremia. Qualifiers: Hypertension type: primary hypertension Qualified Code(s): I10 - Essential (primary) hypertension (5) Secondary progressive multiple sclerosis: Status: Acute Assessment and plan: Will continue duloxetine, baclofen, Wellbutrin, Provigil. PT/OT consulted an in progress (6) Anemia: Status: Acute Assessment and plan: H/H remains stable. No active bleeding reported or seen Qualifiers: Anemia type: other cause Other causes of anemia: acute posthemorrhagic Qualified Code(s): D62 - Acute posthemorrhagic anemia (7) DVT prophylaxis: Status: Deleted Assessment and plan: rivaroxaban until 09/28 as per ortho (being used specifically for DVT ppx) not bed bound, on rehabilitation status (8) Discharge planning issues: Status: Deleted Assessment and plan: CM following, will discharge home when safe to transfer. now at 50% weightbearing discussed with Dr Lane Subjective Subjective Patient reports: no new complaints, tolerating liquids well, tolerating a regular diet and afebrile Interval history since last seen: Continues to progress well was seen at her follow-up appointment at [facility] yesterday. Cleared for 50% weightbearing Exam Const General: cooperative, healthy appearing, comfortable and no acute distress Orientation: alert, awake and oriented x3 [facility] Head: normal to inspection, normocephalic and atraumatic Eyes Conjunctivae: conjunctivae normal Neck Neck: normal visual inspection and supple Resp Effort & Inspection: normal respiratory effort and able to speak in complete sentences Auscultation: clear to auscultation bilaterally Cardio Rate: regular rate Rhythm: regular rhythm Heart Sounds: murmur systolic I/, II/ and at the apex GI Palpation: soft and nontender Back/Spine/Pelvis Back: no CVA tenderness Skin General skin exam: no rashes or lesions noted Neuro General: patient alert, patient awake, patient oriented x3 and no focal motor deficits Cognition: normal cognition Speech: speech normal Motor: other (Baseline bilateral foot drop, otherwise unremarkable.) Sensory Exam: no sensory deficits noted Extrem General: full ROM, capillary refill normal, no calf tenderness and edema Psych Appearance: grossly normal Mental Status: mental status grossly normal Objective Last Vital Signs Temp 36.9 C 10/09/23 15:35 Pulse 74 10/09/23 15:35 Resp 18 10/09/23 15:35 BP 113/73 10/09/23 15:35 Pulse Ox 95 10/09/23 15:35 Time Spent with Patient Time Spent with Patient: 35-49 minutes Time was spent: preparing to see the patient(eg.review tests), obtaining and/or reviewing separately otained hiistory, ordering medications,tests, procedures, indepentently interpreting results, counseling the patient and care coordination
[2023-10-09] MEDS: DULoxetine 30 MG CAP 60 MG PO (21:02)
[2023-10-09] MEDS: Melatonin 3 MG TAB 6 MG PO (21:02)
[2023-10-09 22:45] VITALS: BP 107/67; PULSE 60; RESP 16; TEMP 36.1; O2SAT 95
[2023-10-10 07:33] VITALS: BP 129/82; PULSE 67; RESP 18; TEMP 35; O2SAT 95
[2023-10-10] MEDS: Calcium 600mg/Vit D 200U TAB 1 TAB PO (09:20)
[2023-10-10] MEDS: Ferrous Sulfate 325 MG TAB PO ×2 (09:20→20:08)
[2023-10-10] MEDS: Modafinil 100 MG TAB 200 MG PO (09:20)
[2023-10-10] MEDS: Gabapentin 300 MG CAP PO ×3 (09:20→20:09)
[2023-10-10] MEDS: Metoprolol CR 50 MG TABCR PO (09:21)
[2023-10-10] MEDS: buPROPion-XL 150 MG TABCR 300 MG PO (09:21)
[2023-10-10] MEDS: Baclofen 10 MG TAB 40 MG PO ×3 (09:21→20:09)
[2023-10-10] MEDS: Pantoprazole 40 MG TABCR PO (09:21)
[2023-10-10] MEDS: Timolol 0.5% 5 ML BTL OU (09:22)
[2023-10-10] MEDS: Spironolactone 50 MG TAB PO (09:22)
[2023-10-10] MEDS: Fluticasone NASAL SPRAY 16 GM BTL NS ×2 (09:22→21:25)
--- NOTE | 2023-10-10 13:57 | PTTR_ITS ---
Date of service: 10/10/23 Time of Service: 13:20 PT Notes Visit Reasons: R femoral fracture s/p ORIF, hyponatremia Inpatient Physical Therapy Treatment Note [facility] Date: 10/10/23 PRECAUTIONS: Fall, standard, activity as tolerated. PWB 50% RLE. SUBJECTIVE: Patient reports feeling really good, just finished lunch, back feels better today than it did yesterday. OBJECTIVE: Sitting up in recliner with legs down. PureWick in place, call carrillo accessible. Agreeable to therapy. ? PAIN: none reported at start of treatment session. Back spasms reported during ambulation, causing termination of ambulation. VITALS: monitored by nursing staff ? BED MOBILITY/TRANSFERS? Rolling L/R: independent Supine-sit: independent ? Sit-supine: independent ? Sit-stand: independent ? Stand-sit: independent ? Bed-Chair: independent ? Chair-bed: independent Gait Training ([id number]): Direct one-on-one instruction and skilled ins truction in: [x] employing an assistive device [x] modified weight-bearing status [x] movement sequencing [x] turning and movement with proper form [x] Provided verbal cues for equipment management and technique [x] Provided instruction in gait pattern [] Patient education regarding pacing and breathing techniques to maximize activity tolerance? GAIT? Assistive Device: FWW? Weight bearing: PWB 50% RLE Assist: SBA, wheelchair follow. ? Distance:? 40 feet, then 5 feet into bathroom (tight turns, low seat) and 5 feet back out.? Deviation: RLE shorter than left, internally rotated. Posture hinged forward at hip. Patient's shoulders shrug to ears with walker use. Patient goes 40 feet, c/o sudden onset back spasm and sits abruptly into wheelchair. ? ASSESSMENT:? Patient is thrilled with her progress, despite spasms. Inquires about going home Sunday. CM notified. PLAN: continue global strengthening per plan of care until patient is ready for discharge. TREATMENT CODE/TIME: 29 minutes beginning at 13:20
[2023-10-10 15:04] VITALS: BP 117/76; PULSE 69; RESP 18; TEMP 36; O2SAT 99
--- NOTE | 2023-10-10 15:58 | W.PM.PROGNOT ---
Date of Service Date of service: 10/10/23 Time of Service: 10:40 Assessment and Plan Assessment and plan (1) Closed comminuted intertrochanteric fracture of right femur: Status: Acute Assessment and plan: Steffi is doing well 6 weeks status post revision arthroplasty with fracture fixation about the right leg. She has been advanced to 50% weightbearing by Dr. Eng. At this point things seem to be progressing appropriately. I do think she may be able return home with these new precautions. She should continue her physical therapy, especially focusing on transfers safely with 50% weightbearing precautions. When she is able to demonstrate transferring she does have a wheelchair at home and should be able to manage at home which she would prefer. She does not need the abduction pillow but I would recommend some pillow between the knees if she is sleeping. Qualifiers: Encounter type: subsequent encounter Fracture healing: with nonunion Qualified Code(s): S72.141K - Displaced intertrochanteric fracture of right femur, subsequent encounter for closed fracture with nonunion Subjective Subjective Interval history since last seen: Steffi is doing well. She reports no significant pain. No issues with the wounds. No fevers no chills. No chest pain or shortness of breath. She met with Dr. Eng who was happy with the progress of her fracture and the positioning of the components. She has been advanced to 50% weightbearing. She feels that she made some progress in physical therapy yesterday with these new precautions. She is anxious to try to return home. Exam Narrative Exam Narrative: Sitting up in hospital bed. No acute distress. Alert and x3. Evaluation of the right lower extremity shows well-healed incisions except for 1 small area of eschar in the middle portion of the major incision. Resolving ecchymosis and swelling. No pain with internal or external rotation of the right hip. Objective Last Vital Signs Temp 36.0 C L 10/10/23 15:04 Pulse 69 10/10/23 15:04 Resp 18 10/10/23 15:04 BP 117/76 10/10/23 15:04 Pulse Ox 99 10/10/23 15:04 Time Spent with Patient Time Spent with Patient: <25 minutes Time was spent: obtaining and/or reviewing separately otained hiistory, counseling the patient and care coordination
[2023-10-10] MEDS: Melatonin 3 MG TAB 6 MG PO (20:08)
[2023-10-10] MEDS: DULoxetine 30 MG CAP 60 MG PO (20:09)
[2023-10-11] MEDS: Cyclobenzaprine 10 MG TAB 5 MG PO (00:01)
[2023-10-11 00:05] VITALS: BP 99/60; PULSE 64; RESP 16; TEMP 35.9; O2SAT 93
[2023-10-11 08:22] VITALS: BP 124/79; PULSE 68; RESP 16; TEMP 35.7; O2SAT 99
[2023-10-11 09:50] VITALS: BP 122/79; PULSE 65
[2023-10-11] MEDS: Calcium 600mg/Vit D 200U TAB 1 TAB PO (09:54)
[2023-10-11] MEDS: Spironolactone 50 MG TAB PO (09:54)
[2023-10-11] MEDS: Baclofen 10 MG TAB 40 MG PO ×3 (09:54→20:20)
[2023-10-11] MEDS: Modafinil 100 MG TAB 200 MG PO (09:55)
[2023-10-11] MEDS: Ferrous Sulfate 325 MG TAB PO ×2 (09:55→20:19)
[2023-10-11] MEDS: Metoprolol CR 50 MG TABCR PO (09:56)
[2023-10-11] MEDS: Pantoprazole 40 MG TABCR PO (09:56)
[2023-10-11] MEDS: Gabapentin 300 MG CAP PO ×3 (09:57→20:19)
[2023-10-11] MEDS: buPROPion-XL 150 MG TABCR 300 MG PO (10:00)
[2023-10-11] MEDS: Fluticasone NASAL SPRAY 16 GM BTL NS ×2 (10:01→20:19)
[2023-10-11] MEDS: Timolol 0.5% 5 ML BTL OU (10:02)
[2023-10-11] MEDS: Acetaminophen 325 MG TAB PO (10:29)
--- NOTE | 2023-10-11 14:31 | PT.INTREAT ---
Date of service: 10/11/23 PT Notes Visit Reasons: R femoral fracture s/p ORIF, hyponatremia Inpatient Physical Therapy Treatment Note [facility] Date: 10/11/23 PRECAUTIONS: Fall, standard, activity as tolerated. PWB 50% ON RLE. SUBJECTIVE: Patient reports still having back pain. OBJECTIVE: sitting up in recliner, agreeable to therapy? PAIN: yes - minimal at rest, back spasms with ambulation. VITALS: monitored by nursing staff ? BED MOBILITY/TRANSFERS? Rolling L/R: independent Supine-sit: independent ? Sit-supine: independent ? Sit-stand: independent ? Stand-sit: independent ? Bed-Chair: SBA ? Chair-bed: SBA ? Therapeutic Exercises ([id number]): Direct one-on-one instruction in therapeutic exercises to develop strength, endurance, range of motion and flexibility. ? Exercises:? Access Code: [email or web address] URL: [email or web address] Date: 10/11/2023 Prepared by: Nakia Arias Exercises - Bent Knee Fallouts - 1 x daily - 7 x weekly - 3 sets - 10 reps - Supine 90/90 Alternating Toe Touch - 1 x daily - 7 x weekly - 3 sets - 10 reps - Quadruped Alternating Arm Lift - 1 x daily - 7 x weekly - 3 sets - 10 reps - patient declined - Supine Bridge - 1 x daily - 7 x weekly - 3 sets - 10 reps - Seated Anti-Rotation Press With Anchored Resistance - 1 x daily - 7 x weekly - 3 sets - 10 reps Provided skilled instruction in proper exercise performance Provided skilled manual cues to facilitate proper muscle recruitment and/or form including education with regards to how many reps to do (stop before the pain sets in), verbal and tactile cues to facilitate recruitment of correct muscles. ASSESSMENT:? Patient tolerates therapy well, reports mild increase in back pain at end of session which resolves once patient returns to chair with good back support. PLAN: Continue global strengthening per plan of care until patient is safe to discharge home. TREATMENT CODE/TIME: 22 minutes beginning at 14:33
[2023-10-11 15:12] VITALS: BP 133/85; PULSE 91; RESP 18; TEMP 36.1; O2SAT 92
--- NOTE | 2023-10-11 15:25 | PDOC.CMPRO ---
Date of service: 10/11/23 Time of Service: 15:32 Care Management Progress Note Progress Note Text Progress Note Text: S/O: Steffi was sitting up in her chair when CM met with her. She stated that things are going very well, and that she is hopeful to be ready for discharge on 10/13/23. She stated that she has ordered a commode and a wheelchair that will fit through her doorways at home. CM discussed home health services, which she feels that she will benefit from PT and OT, and is recommended by the provider. She is looking forward to returning home, and stated that her has taken two weeks off of work to be home with her to help with the transition. CM will continue to follow. A: Steffi is a 58 year old female admitted to [place] [id number] on 09/18/23 for continued rehab post surgery. P: Steffi will return home with new orders for PT, OT when cleared medically and by PT. Her will drive her home via private vehicle when ready. She will follow up with her PCP and discharge plan of care. CM will continue to follow.
[2023-10-11] MEDS: Melatonin 3 MG TAB 6 MG PO (20:19)
[2023-10-11] MEDS: DULoxetine 30 MG CAP 60 MG PO (20:19)
[2023-10-12 04:20] VITALS: BP 105/68; PULSE 64; RESP 18; TEMP 36.7; O2SAT 94
[2023-10-12] MEDS: Spironolactone 50 MG TAB PO (07:46)
[2023-10-12] MEDS: Metoprolol CR 50 MG TABCR PO (07:46)
[2023-10-12] MEDS: buPROPion-XL 150 MG TABCR 300 MG PO (07:47)
[2023-10-12] MEDS: Gabapentin 300 MG CAP PO ×3 (07:47→20:56)
[2023-10-12] MEDS: Baclofen 10 MG TAB 40 MG PO ×3 (07:48→20:56)
[2023-10-12] MEDS: Modafinil 100 MG TAB 200 MG PO (07:48)
[2023-10-12] MEDS: Ferrous Sulfate 325 MG TAB PO ×2 (07:49→20:57)
[2023-10-12] MEDS: Docusate Sodium 100 MG CAP PO (07:49)
[2023-10-12] MEDS: Calcium 600mg/Vit D 200U TAB 1 TAB PO (07:49)
[2023-10-12] MEDS: Pantoprazole 40 MG TABCR PO (07:49)
[2023-10-12] MEDS: Timolol 0.5% 5 ML BTL OU (07:50)
[2023-10-12] MEDS: Fluticasone NASAL SPRAY 16 GM BTL NS ×2 (07:50→20:57)
[2023-10-12 07:53] VITALS: BP 127/70; PULSE 69; RESP 18; TEMP 35.3; O2SAT 97
[2023-10-12] MEDS: Polyethylene Glycol 3350 17 GM PACKET PO (08:00)
--- NOTE | 2023-10-12 10:35 | DSE_ITS ---
Date of service: 10/13/23 Time of Service: 13:28 DS: Diagnosis Discharge Diagnosis (1) Closed comminuted intertrochanteric fracture of right femur: Status: Acute Discharge Plan Disposition Patient Disposition: Home W/Home Health Services Condition: Improving Discharge Details Reason For Visit: R femoral fracture s/p ORIF, hyponatremia Admit Date/Time: 09/18/23 16:23 Admit Provider: Kristin Solorio Attending Provider: Kristin Solorio Primary Care Provider: Elizabeth Nunn Hospital Course Hospital Course: This 58 year old female with PMHx of multiple sclerosis, overactive baldder on desmopressin as outpatient, osteoporosis, initially presented to [facility] on 05/17/23 with with an acute femur fracture distally recently placed intramedullary nail status post repeat ORIF on 08/18/2023 and subsequent course complicated by further community fracture and hardware displacement who was transferred to [facility] for revision procedure of her right hip on 08/29/2023. While at [facility] patient went to the OR for repair on 08/29/2023 without any complications. However, postop day 2 postop day 3 she was hypotensive and anemic with hemoglobin of 6.5 which improved status post 1 unit of PRBCs and multiple fluid boluses. During that time her blood pressure meds were held but they were restarted prior to discharge and her hemoglobin slowly improved up to 8.8. Orthopedics recommended rivaroxaban 10 mg daily for which will be continued 30 days postop through 09/28/2023. Patient also with mild hyponatremia which resolved while holding her home DDAVP and fluid restriction ultimately her sodium levels improved and DDAVP was really started with recommendation to recheck her sodium in 1 week. On 09/14, the patient was transferred back to [facility] for ongoing physical therapy and potential placement.The patient developed hyponatremia after transfer to [facility] on 09/15/23, prompting an admission to medical surgical status and ICU stay. Desmopressin was held and she was started on hypertonic saline, of which she was supposed to receive only 100 cc, but ended up receiving more. Her sodium went up to 131 the following morning, then drifted down to 127 on its own. Desmopressin was definitively discontinued as the patient has had issues with hyponatremia on it. The patient did have symptoms with her hyponatremia - clouded vision and difficulty reading. This has gotten significantly better and continued to improve until resolution as sodium level became normal.The patient went back to swing bed status on 09/18/2023 without further symptoms and contnue working with physical therapy who recommends to continue global strengthening upon discharge as per recommendation for weight bearing by the [facility] orthopedic clinic where the patient has a follow up on 12/10/2022. The patient is no longer on desmopressin and will have to follow up with her primary care physician with 1-2 weeks. Home Meds and New Rx's Prescriptions: Continued melatonin 3 mg tablet 6 mg PO HS turmeric root extract 500 mg capsule 500 mg PO DAILY spironolactone 50 mg tablet 50 mg PO DAILY Qty: 90 1RF bupropion HCl 300 mg tablet extended release 24 hr 300 mg PO QAM Qty: 90 1RF lisinopril 40 mg tablet 40 mg PO DAILY Qty: 90 3RF timolol maleate (PF) [Timoptic Ocudose (PF)] 1 EACH dropperette 1 drp Ophthalmic DAILY Rx Instructions: BOTH EYES B Complex Plus Vitamin C 1 EACH capsule 1 cap PO DAILY Probiotic and Acidophilus 1 EACH capsule 1 cap PO DAILY pedi multivit 17-iron fumarate 1 EACH tablet,chewable 2 tab PO DAILY calcium carbonate-vitamin D3 1 EACH tablet 1 ea PO DAILY glucosamine sulf-chondroitinSA 1 EACH capsule 1 ea PO BID cholecalciferol (vitamin D3) 5,000 UNIT tablet 5,000 unit PO DAILY baclofen 20 mg tablet 40 mg PO TID Qty: 540 3RF amlodipine 5 mg tablet 5 mg PO DAILY Qty: 90 3RF dalfampridine [Ampyra] 10 mg tablet extended release 12 hr 10 mg PO BID Qty: 180 3RF duloxetine 60 mg capsule,delayed release(DR/EC) 60 mg PO DAILY Qty: 90 3RF modafinil [Provigil] 200 mg tablet 200 mg PO BID Qty: 180 1RF omeprazole 20 mg capsule,delayed release(DR/EC) 20 mg PO DAILY Qty: 90 3RF metoprolol succinate 50 mg tablet extended release 24 hr 50 mg PO DAILY timolol maleate 0.5 % drops 1 drp ophthalmic (eye) DAILY Patient Comments: INSTILL 1 DROP INTO BOTH EYES EVERY MORNING magnesium 500 mg tablet 500 mg PO DAILY fluticasone propionate 50 mcg/actuation [place],Suspension 1 spray INTRANASAL BID Rx Instructions: administer into each nostril cyclobenzaprine 10 mg Tablet 5 mg PO TID PRN PRNQty: 0 0RF acetaminophen 325 mg Tablet 650 mg PO Q6H PRN PRNQty: 0 0RF diphenhydramine HCl 25 mg Capsule 25 mg PO HS PRN PRNQty: 0 0RF sodium chloride 0.9 % (flush) [BD PosiFlush Normal Saline 0.9] Syringe 5 ml IVP PRN PRNQty: 0 0RF metoprolol tartrate 25 mg Tablet 25 mg PO BID PRNQty: 0 0RF polyethylene glycol 3350 17 gram Powder In Packet 17 - 34 g PO BID PRN PRN (Reason: Constipation) Qty: 0 0RF Phlexy-Vits 15 mg- 700 mcg Powder In Packet 1 packet PO TID Qty: 0 0RF Discontinued desmopressin 0.2 mg tablet 0.2 mg PO HS Patient Comments: on hold here currently Discharge Instructions Stand Alone Forms: Nursing Discharge Form Activity:: Activity as Tolerated Equipment/Supplies:: Walker Diet:: As Tolerated Discharge Orders Discharge Orders: Discharge Order (Routine); Ordered 10/13/23 Ordered By: Deyanira George DS: Summary Time Spent with Patient providing and/or coordinating discharge services: Greater than 30 minutes Status at Discharge Functional status at discharge: uses cane/walker Overall status at discharge: patient is progressing back to baseline Mental Status: mental status grossly normal Speech and Movement: speech and movement normal Mood: congruent mood Affect: normal affect Exam Narrative Exam Narrative: Patient is sitting in a chair, getting dressed when seen. She is alert oriented x4. No acute distress seen. The patient speaks in full sentences, no respiratory distress, clear lungs bilaterally. S1-S2 regular, no cardiac murmur heard. Abdomen is soft nontender not distended. No bladder distention. She can move all 4 extremities. Equal push and pull with lower extremities noticed. Psych Mental Status: mental status grossly normal Speech and Movement: speech and movement normal Mood: congruent mood Affect: normal affect DS: Data Vitals/I&O Vitals and I&O: Vital Signs Temperature 35.3 C L 10/12/23 07:53 Temperature Source Tympanic 10/12/23 07:53 Pulse 69 10/12/23 07:53 Pulse Rhythm Regular 10/12/23 07:56 Respiratory Rate 18 10/12/23 07:53 Respiratory Effort Normal, Non-Labored 10/12/23 07:56 Respiratory Depth Normal 10/12/23 07:56 Respiratory Pattern Normal 10/12/23 07:56 Blood Pressure 127/70 10/12/23 07:53 Pulse Oximetry 97 10/12/23 07:53 Oxygen Delivery Method Room Air 10/12/23 07:53 Oxygen Flow Rate 0 10/12/23 07:53 Pain Level 0 10/12/23 07:53 Comment Pain in back 10/11/23 15:12 Intake & Output 10/11/23 10/11/23 10/12/23 11:59 23:59 11:59 Intake Total 1080 / 1080 Output Total 550 / 1400 850 / 1400 800 / 800 Balance -550 / -320 230 / -320 -800 / -800 Intake: Oral 1080 / 1080 Output: Urine 550 / 1400 850 / 1400 800 / 800 Other: Urine Color Straw Yellow Yellow Urine Appearance Clear Clear Clear Urine Odor None None Comment pad changed by RN Voiding Methods Incontinent PFSH All Active Problems (Updated 10/09/23 @ 17:54 by Eva Lemus NP) Depression (Chronic) Secondary progressive multiple sclerosis (Acute) Hypertension (Chronic) Urinary incontinence (Acute) Right femoral fracture (Acute) Thrombocytosis (Acute) Hypoalbuminemia (Acute) Anemia due to blood loss (Acute) Closed right femoral fracture (Acute) Closed comminuted intertrochanteric fracture of right femur (Acute ~06/2023) Open reduction and intramedullary fixation DOS: 07/10/2023 Foot pain (Acute) Arthritis (Acute) Pes planus (Acute) Anemia (Acute) Essential hypertension (Chronic 09/02/13) Foot drop, left (Acute 05/17/15) Multiple sclerosis (Chronic 1991) Neurogenic bladder (Acute 01/13/16) Spasticity (Chronic 05/17/15) Synovial cyst of popliteal space (Acute) Urge incontinence of urine (Acute 08/08/12) Memory loss (Chronic) Depression (Chronic) Fatigue (Acute) Acquired pes planus of right foot (Chronic) chronic pain in foot; possible surgery Medical History Murmur, cardiac Closed subcapital fracture of left femur S/P L BELEN --DOS 03/15/22 Spinal stenosis of lumbar region with radiculopathy GERD (gastroesophageal reflux disease) Left carpal tunnel syndrome managed non-surgically Optic neuritis Surgical History Status post lumbar laminectomy (~07/2022) 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 S/P ovarian cystectomy S/P tonsillectomy and adenoidectomy S/P left knee arthroscopy partial medial meniscectomy, L Status post bunionectomy Status post myringotomy with insertion of tube Family History Mother , age 76 Diabetes Essential hypertension Asthma Father , age 55 Substance abuse Essential hypertension Hypercholesterolemia Alcohol abuse Brother Alcohol abuse Substance abuse Maternal Grandfather , age 68 Essential hypertension Hyperlipidemia Stroke Liver cancer Paternal Grandfather , age 78 Stomach cancer Maternal Grandmother , age 97 Diabetes Essential hypertension Hyperlipidemia Paternal Grandmother , age 76 Dementia Daughter No problems noted. Social History Smoking/Tobacco Use Status: Former Tobacco Use tobacco type: cigarettes Quit Date: 11/12/07 Tobacco: How many years used: 12 Second Hand Exposure: Yes Smoking risk assessment performed?: Yes Alcohol Intake: current Alcohol Intake frequency: a few times a month Alcohol type: beer, wine and hard liquor Drug use: Daily Substance use type: marijuana Caregiver/Support person: No Household members: spouse Housing: house Number of Children: 1 Communication Needs: None Do you need help understanding health information?: Never current occupation: [employer] 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 Pets and animals: Yes Pets and animals: cat(s) Sexually active: Yes Do you think of yourself as: straight/heterosexual Current gender identity: female What is your relationship status?: How often do you talk on the phone with friends or family?: never How often do you get together with friends or relatives?: never How often do you attend holiness or pentecostal services?: decline to answer Do you belong to any clubs or organized social groups?: no Panel score (0-1 are the most socially isolated patients): 1 What type of physical activity do you participate in: bicycling Duration: 15-30 minutes/day Frequency: 3-4 times per week Veda/Moravian: None Special veda needs: No Seatbelt use: always Helmet use: Yes Helmet use: sometimes Drive intox or ride w/intox box 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 Time Spent with Patient Time Spent with Patient: >85 minutes Time was spent: preparing to see the patient(eg.review tests), ordering medications,tests, procedures, referring, communicating with other health managed care provider, indepentently interpreting results, counseling the patient and care coordination
--- NOTE | 2023-10-12 12:14 | W.NUTRFU ---
Date of service: 10/12/23 Time of Service: 12:14 Nutrition Note NOTE: pt with intake at meals >75% most meals. weight remains stable, anticipate discharge tomorrow. No further nutrition support warranted at this time. Time Spent in Nutritional Counseling and Treatment: 0
--- NOTE | 2023-10-12 14:35 | PT.INTREAT ---
Date of service: 10/12/23 Time of Service: 13:52 PT Notes Visit Reasons: R femoral fracture s/p ORIF, hyponatremia Inpatient Physical Therapy Treatment Note [facility] Date: 10/12/23 PRECAUTIONS: Fall, standard, activity as tolerated. PWB 50% RLE with AD. SUBJECTIVE: Patient reports feeling better than yesterday. Back ached some last night, but that has resolved today. Is eager to continue strengthening her back to make ambulation and functional activity tolerance more comfortable. OBJECTIVE: Sitting up in recliner. PureWick in place. Agreeable to therapy. ? PAIN: none reported. VITALS: monitored by nursing staff. ? BED MOBILITY/TRANSFERS? Rolling L/R: modified independent with bilateral side rails. Supine-sit: ?modified independent with bilateral side rails. ? Sit-supine: modified independent with bilateral side rails. ? Sit-stand: SBA to FWW ? Stand-sit: SBA to FWW ? Bed-Chair: SBA with FWW ? Chair-bed: SBA with FWW ? Therapeutic Exercises ([id number]): Direct one-on-one instruction in therapeutic exercises to develop strength, endurance, range of motion and flexibility. ? Exercises: - Bent Knee Fallouts - 2x5 each side. Verbal cues for TA / core activation, pelvic stabilization. - Supine 90/90 Alternating Toe Touch - 2x5 - Supine Bridge - 1x5 - Seated Anti-Rotation Press With Anchored Resistance - 1x10 vs green band with therapist anchor. - Latissimus pull downs vs green theraband with therapist anchor. Provided skilled instruction in proper exercise performance Provided skilled manual cues to facilitate proper muscle recruitment and/or form. ASSESSMENT:? Patient reports back / core muscles feel adequately fatigued, but she is not getting any of the spasms and pain that she has been having. PLAN: Continue global strengthening per plan of care until patient is ready for discharge. TREATMENT CODE/TIME: 33 minutes beginning at 13:52
[2023-10-12 14:59] VITALS: BP 129/79; PULSE 77; RESP 18; TEMP 36.9; O2SAT 98
[2023-10-12] MEDS: DULoxetine 30 MG CAP 60 MG PO (20:56)
[2023-10-12] MEDS: Melatonin 3 MG TAB 6 MG PO (20:56)
[2023-10-13 00:39] VITALS: BP 113/68; PULSE 68; RESP 16; TEMP 36.2; O2SAT 96
[2023-10-13] MEDS: buPROPion-XL 150 MG TABCR 300 MG PO (07:33)
[2023-10-13] MEDS: Baclofen 10 MG TAB 40 MG PO (07:33)
[2023-10-13] MEDS: Gabapentin 300 MG CAP PO (07:34)
[2023-10-13] MEDS: Modafinil 100 MG TAB 200 MG PO (07:34)
[2023-10-13] MEDS: Metoprolol CR 50 MG TABCR PO (07:34)
[2023-10-13] MEDS: Ferrous Sulfate 325 MG TAB PO (07:35)
[2023-10-13] MEDS: Calcium 600mg/Vit D 200U TAB 1 TAB PO (07:35)
[2023-10-13] MEDS: Spironolactone 50 MG TAB PO (07:35)
[2023-10-13] MEDS: Pantoprazole 40 MG TABCR PO (07:35)
[2023-10-13] MEDS: Docusate Sodium 100 MG CAP PO (07:36)
[2023-10-13] MEDS: Timolol 0.5% 5 ML BTL OU (07:36)
[2023-10-13] MEDS: Fluticasone NASAL SPRAY 16 GM BTL NS (07:36)
[2023-10-13 07:38] VITALS: BP 124/81; PULSE 67; RESP 18; TEMP 35.6; O2SAT 97
--- NOTE | 2023-10-13 11:25 | PT.INTREAT ---
Date of service: 10/13/23 Time of Service: 09:50 PT Notes Visit Reasons: R femoral fracture s/p ORIF, hyponatremia Inpatient Physical Therapy Treatment Note [facility] Date: 10/13/23 PRECAUTIONS: Fall, standard, activity as tolerated. PWB 50% RLE with AD. SUBJECTIVE: Patient reports super excited to be going home today. should arrive around 1 pm to take her home. OBJECTIVE: Supine in bed. PureWick in place. Agreeable to therapy. ? PAIN: none reported. VITALS: monitored by nursing staff. ? BED MOBILITY/TRANSFERS? Rolling L/R: modified independent with bilateral side rails. Supine-sit: ?modified independent with bilateral side rails. ? Sit-supine: modified independent with bilateral side rails. ? Sit-stand: SBA to FWW ? Stand-sit: SBA to FWW ? Bed-Chair: SBA with FWW ? Chair-bed: SBA with FWW ? Therapeutic Exercises ([id number]): Direct one-on-one instruction in therapeutic exercises to develop strength, endurance, range of motion and flexibility. ? Exercises: - Bent Knee Fallouts - 2x5 each side. Verbal cues for TA / core activation, pelvic stabilization. - Supine 90/90 Alternating Toe Touch - 2x5 - Supine Bridge - 1x5, 1x2 - Seated Anti-Rotation Press With Anchored Resistance - 1x10 vs green band with therapist anchor. - Latissimus pull downs vs blue theraband with therapist anchor. Provided skilled instruction in proper exercise performance Provided skilled manual cues to facilitate proper muscle recruitment and/or form. ASSESSMENT:? Patient reports back / core muscles feel adequately fatigued, but she is not getting any of the spasms and pain that she has been having. PLAN: Continue global strengthening per plan of care until patient is ready for discharge. TREATMENT CODE/TIME: 20 minutes beginning at 9:47
--- NOTE | 2023-10-13 14:24 | PDOC.HHF2F ---
Home Health Referral Home Health Orders Clinical synopsis of why skilled professionals are needed: home bound after complicated repair of femur fracture with recent placement of intramedullary nail and revisions Medical diagnosis necessitation home health referral: home bound after complicated repair of femur fracture with recent placement of intramedullary nail and revisions, with weight bearing limitation Physical Therapist: Check all that apply Increase strength & endurance for safe mobility at home: Ordered To design/establish home maintenance program: Ordered Home safety evaluation and teaching/gait training including stair management (if applicable): Ordered Occupational Therapist: Evaluate and treat for patient unable to perform ADL/IADL/self-care: Ordered Upper extremity strengthening, range and motion: Ordered Encounter Date and Reason: I certify that a FTF encounter for this patient was performed on October 13, 2023 and that such encounter was related to the primary reason the patient requires home health services. The encounter was conducted in the following manner: By me as the certifying physician, SCREW MACHINE TOOL SETTER, PA or By an inpatient physician, SCREW MACHINE TOOL SETTER or PA during an inpatient stay who communicated findings to me, Certification And Authentication I certify that I composed the above information based on my clinical judgment relating to this patient's medical condition and, if applicable, clinical findings communicated to me by the NPP or inpatient physician who performed the FTF encounter. Name of Provider that will be monitoring home health services: PCP
--- NOTE | 2023-10-13 14:42 | PDOC.CMDIS ---
Date of service: 10/13/23 Time of Service: 14:42 LACE Index Scoring Tool Questions: Length of Stay (in days): 14 or more Was the patient admitted via the E.D.?: Yes Comorbidities: Connective Tissue Disease E.D. Visits: 2 Answers: Total Score: 15 Risk of Readmission: High Risk Care Management Discharge Plan Reason for Hospitalization: Closed comminuted intertrochanteric fracture of right femur Discharge Plan: Steffi will return home with new orders for PT, OT. Her will drive her home via private vehicle and she will follow up with her PCP and discharge plan of care. Patient/Family Education Needs: Review of discharge instructions including medications, limitations and follow up plan of care; discuss Ask Me Three and self management. Services Needed at Discharge: Home Health Care Services
== END 2023-10-13 14:28 | disposition home health service (06) | DRG 560 ==
PROVIDERS: Nurse Practitioner Acute Care; Admitting Provider Internal Medicine; PCP Family Medicine; Visit Provider Internal Medicine
DX: S72.141D Displaced intertrochanteric fracture of right femur, subsequent encounter for closed fracture with routine healing (principal); D62 Acute posthemorrhagic anemia; E87.1 Hypo-osmolality and hyponatremia; N39.498 Other specified urinary incontinence; G35 Multiple sclerosis; I10 Essential (primary) hypertension; Z79.899 Other long term (current) drug therapy; N32.81 Overactive bladder; M81.0 Age-related osteoporosis without current pathological fracture; F32.A Depression, unspecified; D75.839 Thrombocytosis, unspecified; M21.372 Foot drop, left foot; N31.9 Neuromuscular dysfunction of bladder, unspecified; R41.3 Other amnesia; K21.9 Gastro-esophageal reflux disease without esophagitis; M48.061 Spinal stenosis, lumbar region without neurogenic claudication; M54.16 Radiculopathy, lumbar region; Z87.891 Personal history of nicotine dependence; E88.09 Other disorders of plasma-protein metabolism, not elsewhere classified
CPT/HCPCS: 00123; 36415; 80048; 85027; 97110; 97112; 97116; 97162; 97166; 97530; 97535; 99306; 99309; 99316; 83735; 85025

== ENCOUNTER → 2023-10-18 10:27 | Outpatient (BNVA) | payer MEDICARE, SELFPAY | PROVIDERS: PCP Family Medicine; Visit Provider Psychiatry & Neurology Neurology | DX: R53.83 Other fatigue (principal); N31.9 Neuromuscular dysfunction of bladder, unspecified; K59.2 Neurogenic bowel, not elsewhere classified; R41.3 Other amnesia; R25.2 Cramp and spasm; K59.00 Constipation, unspecified; G35 Multiple sclerosis | CPT/HCPCS: 99214 ==

== ENCOUNTER → 2023-10-24 03:41 | Outpatient (CLI) | payer MEDICARE, SELFPAY ==
--- NOTE | 2023-10-24 07:15 | DI.US_ITS ---
Exam(s) US RENAL EXAM: US RENAL CLINICAL HISTORY: monitoring for hydronephrosis,neurogenic bladder,incomplete emptying. TECHNIQUE: Malhotra scale, color and spectral Doppler were used. COMPARISON: US US RENAL from 04/12/[address] PELVIC WO from 08/17/2023 FINDINGS: Renal size in cm: Right: 10.7 left: 10.6 Echogenicity: Normal. Normal parenchymal thickness. Hydronephrosis: No Cyst or mass: No Nephrolithiasis: No Bladder:Mild bladder wall trabeculation. No stone or visible mass. Both ureteral jets were visual ized. Prevoid vol: 471 cc Postvoid vol:276 cc IMPRESSION: Large postvoid residual bladder volume. No evidence of hydronephrosis. DATA REPOSITORY:
== END ==
PROVIDERS: PCP Family Medicine; Visit Provider Nurse Practitioner Gerontology
DX: Z13.820 Encounter for screening for osteoporosis (principal); M85.89 Other specified disorders of bone density and structure, multiple sites
CPT/HCPCS: 36415; 76770; 80053; 82977

== ENCOUNTER 2023-10-24 04:47 | Outpatient (CLI) | payer MEDICARE, SELFPAY ==
[2023-10-24 12:41] LABS: ALT 19 U/L (14-59); AST 15 U/L (15-37); Albumin 3.5 g/dL (3.4-5.0); Alkaline Phosphatase 187 U/L (46-116); Anion Gap 3.3 mmol/L (3-11); BUN 14 mg/dL (7-18); Bilirubin, Total 0.2 mg/dL (0.2-1.0); CO2 33.7 mmol/L (21.0-32.0); CREATININE 0.6 mg/dL (0.55-1.02); Calcium 9.1 mg/dL (8.5-10.1); Chloride 96 mmol/L (98-107); Estimated GFR 104.63 (mL/min/1.73m2); Glucose 85 mg/dL (74-106); Potassium 4.2 mmol/L (3.5-5.1); Sodium 133 mmol/L (136-145); Total Protein 6.8 g/dL (6.4-8.2)
[2023-10-24 13:15] LABS: Lab Add On Test DONE
[2023-10-24 13:22] LABS: GGT 27 U/L (5-55)
== END 2023-10-24 04:48 | disposition home or self-care (01) ==
LOC: LBO 04:48
PROVIDERS: PCP Family Medicine; Visit Provider Family Medicine
DX: Z00.00 Encounter for general adult medical examination without abnormal findings (principal); R74.8 Abnormal levels of other serum enzymes
CPT/HCPCS: 36415; 80053; 82977

== ENCOUNTER → 2023-10-26 00:27 | Outpatient (CLI) | payer MEDICARE, SELFPAY ==
--- NOTE | 2023-10-26 08:45 | DI.DEXA_ITS ---
Exam(s) XR DEXA BONE DENSITY W/WO JOSUE EXAM: XR DEXA BONE DENSITY W/WO JOSUE CLINICAL HISTORY: recent fracture,OSTEOPOROSIS,M81.0,s72.8X1s TECHNIQUE: [employer] C densitometer analysis of lumbar spine and left forearm. Lateral surve y image of the thoracic and lumbar spine. COMPARISON: No exams were available for comparison FINDINGS: Lateral view of the thoracic and lumbar spine shows no evidence of compression fractures. Bone mineral density measurements of the lumbar spine correspond to a total T-score of -1.1, in the osteopenic range. The L4 vertebral body was excluded due to spinal hardware. Bone mineral density measurements of the left hip are not performed due to bilateral hip prostheses. Theleft forearm bone mineral density measurements correspond to a T-score of the distal 3rd of -0.8, in the normal range.. IMPRESSION: Mild osteopenia of the lumbar spine. Normal bone mineral density of the left forearm.
== END ==
PROVIDERS: PCP Family Medicine; Visit Provider Family Medicine
DX: Z13.820 Encounter for screening for osteoporosis (principal); M85.89 Other specified disorders of bone density and structure, multiple sites
CPT/HCPCS: 77080

== ENCOUNTER 2023-11-08 00:44 | Outpatient (CLI) | payer MEDICARE, SELFPAY ==
[2023-11-08 13:03] LABS: Vitamin D 25 Total 55.3 ng/mL (30-100)
[2023-11-08 18:25] LABS: Parathyroid Hormone,Intact 19 pg/mL (19-88)
== END 2023-11-08 00:45 | disposition home or self-care (01) ==
LOC: LOS 00:44
PROVIDERS: PCP Family Medicine; Visit Provider Family Medicine
DX: M81.0 Age-related osteoporosis without current pathological fracture (principal); I10 Essential (primary) hypertension; G35 Multiple sclerosis; F32.89 Other specified depressive episodes
CPT/HCPCS: 36415; 82306; 83970

== ENCOUNTER → 2023-12-06 09:30 | Outpatient (BNVA) | payer MEDICARE, SELFPAY | PROVIDERS: PCP Family Medicine; Visit Provider Nurse Practitioner Gerontology | DX: N39.41 Urge incontinence (principal); R35.1 Nocturia; N31.9 Neuromuscular dysfunction of bladder, unspecified | CPT/HCPCS: 99213 ==

== ENCOUNTER 2024-03-22 21:24 | Inpatient (IN) | payer MEDICARE, SELFPAY ==
[2024-03-22] VITALS (11 sets, daily range): BP systolic 107–175; BP diastolic 58–103; PULSE 48–58; RESP 7–18; TEMP 36.2; O2SAT 99–100
--- NOTE | 2024-03-22 21:30 | RT.EKG_ITS ---
APPROVED REPORT Exam: Resting ECG Reason for Exam: dizziness Patient Location: E HR:51 bpm ECG Measurements Heart Rate 51 AXIS LA 175 P 58 QRSd 95 QRS -9 QT 484 T 9 QTc 444 Conclusion Sinus bradycardia...rate< 60 Left ventricular hypertrophy...multiple voltage criteria sinus bradycardia, left axis, non ischemic
--- NOTE | 2024-03-22 21:30 | DI.CT_ITS ---
Exam(s) CT BRAIN NECK CTA EXAM: CT BRAIN NECK CTA CLINICAL HISTORY: dysmetria, dizziness. TECHNIQUE: Imaging Protocol: Axial CT angiography was performed with multi-slice acquisition and mu lti-planar and/or 3D reconstructions. CONTRAST MATERIAL: Intravenous: Omnipaque 350 contrast volume:85 mL COMPARISON: No previous for comparison. FINDINGS: CT Head W/O and W: Ventricles and Extra axial spaces: Normal in size and morphology for the patient's age. Hemorrhage: None. Cerebral parenchyma: Normal. Midline shift: None. Brainstem/Cerebellum: Normal. Calvarium: Normal. Visualized Paranasal sinuses/Mastoids: Clear. Soft Tissues: Unremarkable. Enhancement: Unremarkable. CTA Neck W: Common Carotid: There is medial deviation of both common carotid arteries to a position anterior to t he cervical spine. Right: No dissection, occlusion or significant stenosis. Left: No dissection, occlusion or significant stenosis. External Carotid: Right: No occlusion or significant stenosis. Left: No occlusion or significant stenosis. Internal Carotid: Right: No dissection, occlusion or significant stenosis. Left: No dissection, occlusion or significant stenosis. Vertebral Artery: Right: No dissection, occlusion or significant stenosis. Left: No dissection, occlusion or significant stenosis. The left vertebral artery terminates as the inferior cerebellar artery. Lung Apices: Normal. Bones: Within normal limits for the patient's age. There is reversal of the normal cervical lordosis Soft Tissues: Normal. Thyroid gland: Unremarkable. CTA Brain W: Internal Carotid Arteries: Normal. Anterior Cerebral Arteries: Right: No aneurysm, occlusion or significant stenosis. Left: No aneurysm, occlusion or significant stenosis. Middle Cerebral Arteries: Right: No aneurysm, occlusion or significant stenosis. Left: No aneurysm, occlusion or significant stenosis. Posterior Cerebral Arteries: Both posterior cerebral arteries arise from the posterior communicating arteries which is a normal variant. Right: No aneurysm, occlusion or significant stenosis. Left: No aneurysm, occlusion or significant stenosis. Vertebral Arteries: Right: No aneurysm, occlusion or significant stenosis. Left: No aneurysm, occlusion or significant stenosis. Basilar Artery: The basilar artery terminates as the superior cerebellar arteries. IMPRESSION: 1. No large vessel occlusion or significant stenosis on the CT angiography of the head. 2. No acute intracranial process. 3. No occlusion or significant stenosis on the CT angiography of the neck. RADIATION DOSE DELIVERED: 1,708.85mGy.cm Total DLP DATA REPOSITORY: All CT scans at this facility are submitted to the National Radiology Data Registry (NRDR) Dose Index Registry (DIR) with the [employer] (ACR). RADIATION OPTIMIZATION: All CT scans at this facility use at least one of these dose optimization te chniques: automated exposure control; mA and/or kV adjustment per patient size (includes targeted exa ms where dose is matched to clinical indication); or iterative reconstruction.
--- NOTE | 2024-03-22 21:35 | ED.GENADUL_ITS ---
Discharge Plan Discharge Details Chief Complaint: GenMedical Primary Care Provider: Elizabeth Nunn ED Provider: Thomas Britton Home Meds and New Rx's Prescriptions: No Action melatonin 3 mg tablet 6 mg PO HS turmeric root extract 500 mg capsule 500 mg PO DAILY spironolactone 50 mg tablet 50 mg PO DAILY Qty: 90 1RF bupropion HCl 300 mg tablet extended release 24 hr 300 mg PO QAM Qty: 90 1RF metoprolol succinate 50 mg tablet extended release 24 hr 50 mg PO DAILY Qty: 90 3RF gabapentin 300 mg capsule 300 mg PO TID baclofen 20 mg tablet 40 mg PO TID Qty: 540 3RF lisinopril 40 mg tablet 40 mg PO DAILY Qty: 90 3RF B Complex Plus Vitamin C 1 EACH capsule 1 cap PO DAILY Probiotic and Acidophilus 1 EACH capsule 1 cap PO DAILY pedi multivit 17-iron fumarate 1 EACH tablet,chewable 2 tab PO DAILY calcium carbonate-vitamin D3 1 EACH tablet 1 ea PO DAILY glucosamine sulf-chondroitinSA 1 EACH capsule 1 ea PO BID cholecalciferol (vitamin D3) 5,000 UNIT tablet 5,000 unit PO DAILY amlodipine 5 mg tablet 5 mg PO DAILY Qty: 90 3RF dalfampridine [Ampyra] 10 mg tablet extended release 12 hr 10 mg PO BID Qty: 180 3RF duloxetine 60 mg capsule,delayed release(DR/EC) 60 mg PO DAILY Qty: 90 3RF modafinil [Provigil] 200 mg tablet 200 mg PO BID Qty: 180 1RF omeprazole 20 mg capsule,delayed release(DR/EC) 20 mg PO DAILY Qty: 90 3RF (DME) Upright Walker See Rx Instructions .Route .MEDSUPPLY Qty: 1 0RF Rx Instructions: As directed timolol maleate 0.5 % drops 1 drp ophthalmic (eye) DAILY Patient Comments: INSTILL 1 DROP INTO BOTH EYES EVERY MORNING magnesium 500 mg tablet 500 mg PO DAILY fluticasone propionate 50 mcg/actuation [place],Suspension 1 spray INTRANASAL BID Rx Instructions: administer into each nostril cyclobenzaprine 10 mg Tablet 5 mg PO TID PRN PRNQty: 0 0RF polyethylene glycol 3350 17 gram Powder In Packet 17 - 34 g PO BID PRN PRN (Reason: Constipation) Qty: 0 0RF HPI General Date/Time Provider Initiated Documentation: 03/22/24 21:33 . HPI Narrative: 58 year-old female presents to ED today by POV/wheelchair with her with a chief complaint of feeling floaty/dizzy, visual changes with onset this morning around 0745. Patient has baseline tremor in the setting of chronic MS, but feels different than any episode before. Patient endorses tingling all over. Quality described as not quite vertiginous, but feels dizzy, no radiation to chest pain, palpitations, fever, recent illness, abdominal pain, nausea/vomiting, loss of vision, slurred speech, facial droop, hemiparesis or weakness to one side. Severity is described as severe. Palliating factors include nothing specific. Provoking factors include nothing specific. Events leading up to the incident/Associated Symptoms: Patient has frequent falls, history of multiple fractures, has R foot in walking boot. Patient not anticoagulated. Related Data Home Medications Medication Instructions Recorded Confirmed Lactobacillus comb 1 cap PO DAILY 02/04/13 01/04/24 no.0-[id number] 300 million cell-250 mg capsule (Probiotic and Acidophilus) pediatric multivit no.17-ferrous 2 tab PO DAILY 02/04/13 01/04/24 fumarate 15 mg iron chewable tablet vitamin B comp and C no.3 15 mg-10 1 cap PO DAILY 02/04/13 01/04/24 mg-50 mg-5 mg-300 mg capsule (B Complex Plus Vitamin C) calcium carbonate 600 mg-vitamin 1 ea PO DAILY 01/26/15 01/04/24 D3 5 mcg (200 unit) tablet cholecalciferol (vitamin D3) 125 5,000 unit PO DAILY 01/26/15 01/04/24 mcg (5,000 unit) tablet glucosamine sulfate 250 1 ea PO BID 01/26/15 01/04/24 mg-chondroitin sulfate A 200 mg capsule melatonin 3 mg tablet 6 mg PO HS 03/25/19 01/04/24 turmeric root extract 500 mg 500 mg PO DAILY 05/07/19 01/04/24 capsule magnesium 500 mg tablet 500 mg PO DAILY 04/19/22 01/04/24 amlodipine 5 mg tablet 5 mg PO DAILY #90 tabs 06/26/23 01/04/24 dalfampridine 10 mg 10 mg PO BID #180 tabs 07/16/23 01/04/24 tablet,extended release,12 hr (Ampyra) fluticasone propionate 50 1 spray intranasal BID 08/19/23 01/04/24 mcg/actuation nasal spray,suspension cyclobenzaprine 10 mg tablet 5 mg (1/2 x 10 mg) PO TID PRN PRN 08/28/23 01/04/24 #0 tabs polyethylene glycol 3350 17 gram 17 - 34 g PO BID PRN PRN 08/28/23 01/04/24 oral powder packet Constipation #0 ea duloxetine 60 mg capsule,delayed 60 mg PO DAILY #90 caps 09/13/23 01/04/24 release timolol maleate 0.5 % eye drops 1 drp ophthalmic (eye) DAILY 09/17/23 01/04/24 modafinil 200 mg tablet (Provigil) 200 mg PO BID #180 tabs 10/08/23 01/04/24 omeprazole 20 mg capsule,delayed 20 mg PO DAILY #90 caps 10/11/23 01/04/24 release baclofen 20 mg tablet 40 mg (2 x 20 mg) PO TID #540 tabs 10/18/23 01/04/24 lisinopril 40 mg tablet 40 mg PO DAILY #90 tabs 10/18/23 01/04/24 bupropion HCl 300 mg 24 hr tablet, 300 mg PO QAM #90 tabs 10/19/23 01/04/24 extended release metoprolol succinate 50 mg 50 mg PO DAILY #90 tabs 10/19/23 01/04/24 tablet,extended release 24 hr spironolactone 50 mg tablet 50 mg PO DAILY #90 tabs 10/19/23 01/04/24 Upright Walker #1 ea 11/02/23 01/04/24 gabapentin 300 mg capsule 300 mg PO TID 01/04/24 01/04/24 Previous Rx's Medication Instructions Recorded amlodipine 5 mg tablet 5 mg PO DAILY #90 tabs 06/26/23 dalfampridine 10 mg 10 mg PO BID #180 tabs 07/16/23 tablet,extended release,12 hr (Ampyra) cyclobenzaprine 10 mg tablet 5 mg (1/2 x 10 mg) PO TID PRN PRN 08/28/23 #0 tabs polyethylene glycol 3350 17 gram 17 - 34 g PO BID PRN PRN 08/28/23 oral powder packet Constipation #0 ea duloxetine 60 mg capsule,delayed 60 mg PO DAILY #90 caps 09/13/23 release modafinil 200 mg tablet (Provigil) 200 mg PO BID #180 tabs 10/08/23 omeprazole 20 mg capsule,delayed 20 mg PO DAILY #90 caps 10/11/23 release baclofen 20 mg tablet 40 mg (2 x 20 mg) PO TID #540 tabs 10/18/23 lisinopril 40 mg tablet 40 mg PO DAILY #90 tabs 10/18/23 bupropion HCl 300 mg 24 hr tablet, 300 mg PO QAM #90 tabs 10/19/23 extended release metoprolol succinate 50 mg 50 mg PO DAILY #90 tabs 10/19/23 tablet,extended release 24 hr spironolactone 50 mg tablet 50 mg PO DAILY #90 tabs 10/19/23 Upright Walker #1 ea 11/02/23 Allergies Allergy/AdvReac Type Severity Reaction Status Date / Time Sulfa (Sulfonamide Allergy Intermediate SKIN RASH Verified 01/04/24 09:22 Antibiotics) Penicillins Allergy Unknown RASH Verified 01/04/24 09:22 chlorthalidone AdvReac Severe Hyponatremi Verified 01/04/24 09:22 a codeine AdvReac Unknown NAUSEA Verified 01/04/24 09:22 General Stated Complaint: GenMedical LAI: 3 Review of Systems All systems reviewed & are unremarkable except as noted in HPI and below Exam Narrative Exam Narrative: GENERAL APPEARANCE: Well-nourished, non-toxic, awake and alert, atraumatic, no acute distress. SKIN: Warm, pink, dry, intact, without rashes/lesions/ulcerations. HEAD: Normocephalic, atraumatic, normal hair distribution for gender/age. EYES: Pupils PERRLA, EOMs intact question vertical nystagmus, normal conjunctiva, no exudates on lids/lashes, visual matthews intact, vision grossly intact. ENT: Nares patent, no circumoral cyanosis, no facial swelling NECK: Supple, trachea midline, painless cervical ROM. LUNGS/CHEST: Lungs CTA bilaterally- no rhonchi/rales/wheezes diffusely, non- labored respirations, normal A/P diameter, symmetrical expansion, no chest wall deformity HEART (CV/PV): Regular rate and rhythm without murmur, no peripheral edema, no JVD, no carotid bruit ABDOMEN: Soft, non-distended, no guarding, no tenderness. MSK: Normal ROM, no swelling/deformity to bilateral UEs or LEs, moving all extremities without weakness, no cyanosis, spine midline without tenderness, normal curvature. NEURO: Mental Status AAOx4 - alert to person, place, time, events No facial droop, no forehead involvement, some dysmetria with L hand FNF, heel-chaudhry not tested Motor: No focal weakness - strength 5/5 in bilateral UEs and LEs, proximal and distal, symmetric, no pronator drift Sensory: sensation intact to light touch globally. Gait NT- walking boot on R foot PSYCH: euthymic, cooperative, pleasant, appropriate speech Course Vital Signs Vital signs: Vital Signs Temperature 36.2 C L 03/22/24 21:30 Pulse 54 L 03/22/24 21:30 Respiratory Rate 18 03/22/24 21:30 Blood Pressure 149/81 H 03/22/24 21:30 Pulse Oximetry 100 03/22/24 21:30 Temperature 36.2 C L 03/22/24 21:30 Temperature Source Skin 03/22/24 21:30 Pulse 54 L 03/22/24 21:30 Respiratory Rate 18 03/22/24 21:30 Respiratory Effort Normal 03/22/24 21:34 Blood Pressure 149/81 H 03/22/24 21:30 Blood Pressure Position Sitting 03/22/24 21:30 Pulse Oximetry 100 03/22/24 21:30 Oxygen Delivery Method Room Air 03/22/24 21:30 Oxygen Flow Rate 0 03/22/24 21:30 Medical Decision Making This dictation utilizes [id number] dictation software and may contain unedited grammatical errors. 58 y/o F presents to ED today with a chief complaint of dizziness, feels floaty not quite vertiginous- in the setting of chronic MS, having visual changes without visual field deficits, vague sensory changes to tingling all over, history of multiple fractures of falls intermittently in remote past. Patient denies recent illness. Patients' medical history: Anemia, GERD, leg length discrepancy, osteoporosis, secondary progressive multiple sclerosis onset in 1991, hypertension, neurogenic bladder, spasticity, memory loss. Family and social history: Lives at home with . Pertinent exam findings / vital signs include dysmetria with FNF, strength 5/5 in bilateral upper and lower extremities, no facial droop, no slurred speech, visual matthews intact, benign cardiopulmonary status. Differential / pathologies of concern include CVA/TIA, MS Flare, Partial Seizure. Diagnostic studies of: -CTA Head & Neck, CBC, CMP, UA, Trop I, CRP/ESR, Tick Panel, TSH, UA, Mg++, EKG. -CBC shows no leukocytosis -CMP shows mild AIDE with creatinine 1.1 from a baseline of 0.6 mild increase in alk phos, nonspecific -Magnesium is 2.5 -TSH 3.7 within normal limits -Urine is benign -Troponin negative -CRP negative -Tick panel pending -EKG shows sinus bradycardia 51 bpm with P waves followed by narrow complex QRS with mild left axis deviation, poor R wave progression, LVH, normal QT QTc, no ST changes or reciprocal changes, no Q waves - consistent with prior from 2021 Interventions of: -None. ED Course/Assessment/Plan: 58-year-old female presents with vague onset of some dizziness or vertiginous symptoms with sensory changes and visual changes without visual field loss or deficit. Onset is around 0745 this morning, while outside any window for intervention for possible CVA, NIH is 1 with dysmetria with [id number]. Patient's noted higher than average blood pressure today, her blood pressure on arrival was 149/81. She does have baseline tremor and a leg length discrepancy with her right foot in a walking boot which makes it difficult to assess her for cerebellar signs. Ordered laboratory workup, EKG, CTA head and neck, patient signed out to oncoming provider Dr. Mason at shift change. Findings not consistent with large vessel stroke, vision loss, visual field deficit. Disposition of Dysmetria. Patient verbalized understanding of the plan and return to ED criteria and engaged in shared decision making. Medical Records Medical records reviewed: Yes I reviewed the patient's medical records. Imaging Data Radiologic Study: Attestation: I personally reviewed and interpreted this imaging study as follows: Imaging: CT Scan My impression: Pending at sign-out. Lab Data Lab results reviewed: Yes I reviewed the patient's lab results. Labs: Laboratory Tests Range/Units 03/22/24 03/22/24 21:44 22:00 WBC (4.4-10.8) 10^3/uL 6.44 RBC (3.93-5.22) 10^6/uL 3.96 Hgb (11.2-15.7) g/dL 12.8 Hct (36.0-46.0) % 39.7 MCV (80-95) fL 100 H MCH (27.0-33.0) pg 32.3 MCHC (32.0-36.0) % 32.2 RDW (11.7-14.6) % 13.7 Plt Count (130-400) 10^3/uL 334 MPV (8.0-11.0) fL 8.6 Immature Gran % % 0.2 Neutrophils % % 52.4 Lymphocytes % % 34.9 Monocytes % % 9.2 Eosinophils % % 2.5 Basophils % % 0.8 Nucleated RBC % (0.0-0.3) % 0.0 Absolute Neutrophils (1.2-6.7) 10^3/uL 3.38 Absolute Lymphocytes (1.2-3.4) 10^3/uL 2.25 Absolute Monocytes (0.1-0.8) 10^3/uL 0.59 Absolute Eosinophils (0.0-0.7) 10^3/uL 0.16 Absolute Basophils (0.0-0.2) 10^3/uL 0.05 ESR (0-30) mm/hr 17 Sodium (136-145) mmol/L 139 Potassium (3.5-5.1) mmol/L 4.2 Chloride (98-107) mmol/L 101 Carbon Dioxide (21.0-32.0) mmol/L 29.2 Anion Gap (3-11) mmol/L 8.8 BUN (7-18) mg/dL 25 H Creatinine (0.55-1.02) mg/dL 1.1 H Est GFR (CKD-EPI 2020) (mL/min/1.73m2) 58.61 Glucose (74-106) mg/dL 148 H Calcium (8.5-10.1) mg/dL 9.2 Magnesium (1.8-2.4) mg/dL 2.5 H Total Bilirubin (0.2-1.0) mg/dL 0.2 AST (15-37) U/L 17 ALT (14-59) U/L 24 Alkaline Phosphatase (46-116) U/L 185 H Troponin I (< or =60) ng/L < 50 C-Reactive Protein (<or=0.5) mg/dL < 0.50 Total Protein (6.4-8.2) g/dL 7.4 Albumin (3.4-5.0) g/dL 4.1 TSH (0.36-3.74) uIU/mL 3.71 Urine Color (Yellow) Yellow Urine Clarity (Clear) Clear Urine pH (5-8) 6.0 Ur Specific [place] (1.005-1.025) 1.020 Urine Protein (Neg-Trace) mg/dL Negative Urine Ketones (Negative) mg/dL Negative Urine Blood (Negative) Negative Urine Nitrite (Negative) Negative Urine Bilirubin (Negative) Negative Urine Urobilinogen (Up to 0.2) mg/dL 0.2 Ur Leukocyte Esterase (Negative) Negative Urine Glucose (Negative) mg/dL Negative Quality:SDOH Health Related Social Needs: No Data to Display PFSH All Active Problems (Updated 01/23/24 @ 09:59 by Elizabeth Nunn MD) Leg length discrepancy (Acute) Overweight with body mass index (BMI) 25.0-29.9 (Acute) Osteoporosis (Chronic) normal bone density study, pending endocrine consult. Secondary progressive multiple sclerosis (Chronic 1991) Essential hypertension (Chronic 09/02/13) Foot drop, left (Acute 05/17/15) Neurogenic bladder (Acute 01/13/16) Spasticity (Chronic 05/17/15) Synovial cyst of popliteal space (Acute) Urge incontinence of urine (Acute 08/08/12) Memory loss (Chronic) Depression (Chronic) Fatigue (Acute) Acquired pes planus of right foot (Chronic) chronic pain in foot; possible surgery Medical History (Updated 01/23/24 @ 09:59 by Elizabeth Nunn MD) Periprosthetic fracture of shaft of femur Closed right femoral fracture Urinary incontinence Right femoral fracture Hyponatremia Anemia Murmur, cardiac Closed subcapital fracture of left femur S/P L BELEN --DOS 03/15/22 Spinal stenosis of lumbar region with radiculopathy GERD (gastroesophageal reflux disease) Left carpal tunnel syndrome managed non-surgically Optic neuritis Surgical History (Updated 01/04/24 @ 09:42 by Elizabeth Nunn MD) S/P total right hip arthroplasty due to fracture, required revision x 2 Status post lumbar laminectomy (~07/2022) 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 S/P ovarian cystectomy S/P tonsillectomy and adenoidectomy S/P left knee arthroscopy partial medial meniscectomy, L Status post bunionectomy Status post myringotomy with insertion of tube Family History (Updated 01/04/24 @ 09:44 by Elizabeth Nunn MD) Mother , age 76 Diabetes Essential hypertension Asthma Father , age 55 Substance abuse Essential hypertension Hypercholesterolemia Alcohol abuse Suicide and self-inflicted injuries by jumping from high place Brother , of suicide 03/2023 Alcohol abuse Substance abuse Suicide Maternal Grandfather , age 68 Essential hypertension Hyperlipidemia Stroke Liver cancer Paternal Grandfather , age 78 Stomach cancer Maternal Grandmother , age 97 Diabetes Essential hypertension Hyperlipidemia Paternal Grandmother , age 76 Dementia Daughter No problems noted. Social History (Updated 01/04/24 @ 09:32 by Belén Corona RN, RN) Smoking/Tobacco Use Status: Former Tobacco Use tobacco type: cigarettes Quit Date: 11/12/07 Tobacco: How many years used: 12 Second Hand Exposure: Yes Smoking risk assessment performed?: Yes Alcohol Intake: current Alcohol Intake frequency: a few times a month Alcohol type: beer, wine and hard liquor Drug use: Daily Substance use type: marijuana Caregiver/Support person: No Household members: spouse Housing: other Details: [place] Number of Children: 1 Communication Needs: None Education Level: college Do you need help understanding health information?: Never current occupation: [employer] 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 Pets and animals: Yes Pets and animals: cat(s) Sexually active: Yes Do you think of yourself as: straight/heterosexual Current gender identity: female What is your relationship status?: How often do you talk on the phone with friends or family?: never How often do you get together with friends or relatives?: never How often do you attend mu-ism or orthodox services?: decline to answer Do you belong to any clubs or organized social groups?: no Panel score (0-1 are the most socially isolated patients): 1 What type of physical activity do you participate in: walking and bicycling Duration: < 15 minutes/day Frequency: 3-4 times per week Veda/Jehovah'S Witness: None Special veda needs: No Seatbelt use: always Helmet use: Yes Helmet use: sometimes Drive intox or ride w/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 Sign Out Sign Out Data: Sign Out Comment: Patient had onset of dizziness/vertigo with subjective visual changes and sensory deficits at 0745 this morning. Difficult to discern cerebellar signs on exam with dysmetria and baseline tremor of chronic MS. Signed out with CTA pending to Dr. Mason, likely admit vs MRI in AM Last updated by Thomas Britton PA at 03/22/24 22:28
[2024-03-22 21:53] LABS: Bilirubin Negative (Negative); Blood Negative (Negative); Clarity Clear (Clear); Glucose Negative (Negative); Ketones Negative (Negative); Leukocyte Esterase Negative (Negative); Nitrite Negative (Negative); Urobilinogen 0.2 mg/dL (Up to 0.2)
[2024-03-22 22:07] LABS: Abs Immature Grans 0.01 10^3/uL (0.0-0.06); Absolute Basophil Count 0.05 10^3/uL (0.0-0.2); Absolute Eosinophil Count 0.16 10^3/uL (0.0-0.7); Absolute Lymphocyte Count 2.25 10^3/uL (1.2-3.4); Absolute Monocyte Count 0.59 10^3/uL (0.1-0.8); Absolute Neutrophil Count 3.38 10^3/uL (1.2-6.7); Basophils % 0.8 %; Eosinophils % 2.5 %; HCT 39.7 % (36.0-46.0); HGB 12.8 g/dL (11.2-15.7); Immature Grans % 0.2 %; Lymphocytes % 34.9 %; MCH 32.3 pg (27.0-33.0); MCHC 32.2 % (32.0-36.0); MCV 100 fL (80-95); MPV 8.6 fL (8.0-11.0); Monocytes % 9.2 %; Neutrophils % 52.4 %; Platelet Count 334 10^3/uL (130-400); RBC 3.96 10^6/uL (3.93-5.22); RDW 13.7 % (11.7-14.6); RDW-SD 50.5 fL; WBC 6.44 10^3/uL (4.4-10.8)
[2024-03-22 22:09] LABS: ESR 17 mm/hr (0-30)
[2024-03-22 22:31] LABS: ALT 24 U/L (14-59); AST 17 U/L (15-37); Albumin 4.1 g/dL (3.4-5.0); Alkaline Phosphatase 185 U/L (46-116); Anion Gap 8.8 mmol/L (3-11); BUN 25 mg/dL (7-18); Bilirubin, Total 0.2 mg/dL (0.2-1.0); CO2 29.2 mmol/L (21.0-32.0); CREATININE 1.1 mg/dL (0.55-1.02); Calcium 9.2 mg/dL (8.5-10.1); Chloride 101 mmol/L (98-107); Estimated GFR 58.61 (mL/min/1.73m2); Glucose 148 mg/dL (74-106); Magnesium 2.5 mg/dL (1.8-2.4); Potassium 4.2 mmol/L (3.5-5.1); Sodium 139 mmol/L (136-145); TSH (W/Ref FT4) 3.71 uIU/mL (0.36-3.74); Total Protein 7.4 g/dL (6.4-8.2); Troponin I < 50 ng/L (< or =60)
[2024-03-22 22:34] LABS: C-Reactive Protein < 0.50 mg/dL (<or=0.5)
[2024-03-22] MEDS: Normal Saline - Diluent 50 ML VIAL IJ (23:07)
[2024-03-22] MEDS: Omnipaque 350 MG/ML 100 ML BTL IJ (23:08)
[2024-03-23] VITALS (31 sets, daily range): BP systolic 47–170; BP diastolic 24–102; PULSE 49–72; RESP 7–22; TEMP 36–36.9; O2SAT 93–99
--- NOTE | 2024-03-23 01:11 | DI.VRAD_ITS ---
PROCEDURE INFORMATION: Exam: CTA Head With Contrast, Arteriography Exam date and time: 03/22/2024 11:07 PM Age: 58 years old Clinical indication: Other: Dysmetria, dizziness TECHNIQUE: Imaging protocol: Computed tomographic angiography of the head with contrast. Exam focused on the arteries. 3D rendering (Not supervised by radiologist): MIP and/or 3D reconstructed images were created by the technologist. Contrast material: 350; Contrast volume: 100 ml; Contrast route: INTRAVENOUS (IV); COMPARISON: MR CERVICAL SPINE WO 02/17/2022 9:43 AM FINDINGS: ANTERIOR CIRCULATION: Right internal carotid artery: Intracranial segment is patent with no significant stenosis. No aneurysm. Right middle cerebral artery: No occlusion or significant stenosis. No aneurysm. Right anterior cerebral artery: No occlusion or significant stenosis. No aneurysm. Left internal carotid artery: Intracranial segment is patent with no significant stenosis. No aneurysm. Left middle cerebral artery: No occlusion or significant stenosis. No aneurysm. Left anterior cerebral artery: No occlusion or significant stenosis. No aneurysm. POSTERIOR CIRCULATION: Right vertebral artery: No occlusion or significant stenosis. No aneurysm. Left vertebral artery: No occlusion or significant stenosis. No aneurysm. Basilar artery: See Superior cerebellar arteries finding. Right posterior cerebral artery: See Other arteries finding. Left posterior cerebral artery: See Other arteries finding. Superior cerebellar arteries: The basilar artery terminates as superior cerebellar arteries. Preserved bilateral circulation with widely prominent bilateral posterior communicating arteries. Other arteries: Preserved circulation. Left posterior cerebral artery normal. Preserved circulation. Right posterior cerebral artery normal. Brain: Volume loss and chronic small vessel ischemic change. No brain edema. No intracranial hemorrhage. Cerebral ventricles: No ventriculomegaly. Bones/joints: Unremarkable. No acute fracture. Soft tissues: Unremarkable. IMPRESSION: 1. No acute brain findings. 2. No acute vascular findings. PROCEDURE INFORMATION: Exam: CTA Neck With Contrast Exam date and time: 03/22/2024 11:07 PM Age: 58 years old Clinical indication: Other: Dysmetria, dizziness TECHNIQUE: Imaging protocol: Computed tomographic angiography of the neck with contrast. Exam focused on the cervical segments of the vasculature. 3D rendering (Not supervised by radiologist): MIP and/or 3D reconstructed images were created by the technologist. Radiation optimization: All CT scans at this facility use at least one of these dose optimization techniques: automated exposure control; mA and/or kV adjustment per patient size (includes targeted exams where dose is matched to clinical indication); or iterative reconstruction. Contrast material: 350; Contrast volume: 100 ml; Contrast route: INTRAVENOUS (IV); COMPARISON: MR CERVICAL SPINE WO 02/17/2022 9:43 AM FINDINGS: Right common carotid artery: No stenosis. No dissection or occlusion. Right internal carotid artery: No stenosis of the extracranial segment. No dissection or occlusion. Right external carotid artery: No occlusion or stenosis of the origin. Left common carotid artery: No stenosis. No dissection or occlusion. Left internal carotid artery: No stenosis of the extracranial segment. No dissection or occlusion. Left external carotid artery: No occlusion or stenosis of the origin. Right vertebral artery: No stenosis. No dissection or occlusion. Left vertebral artery: Left vertebral artery terminates as an inferior cerebellar artery. Soft tissues: Normal. No significant soft tissue swelling. Bones/joints: No acute fracture. IMPRESSION: REFERENCES: NASCET CRITERIA. The degree of stenosis in the cervical segment of the internal carotid artery is based on NASCET criteria. Normal is no stenosis. Mild is less than 50% stenosis. Moderate is 50-69% stenosis. Severe is 70% to 99% stenosis. Total occlusion is no detectable patent lumen. Dictated and Authenticated by: Lambert Umana MD. Ordering:AMARILYS Guzman MD
[2024-03-23] MEDS: Lactated Ringers 1,000 ML 1000 ML IV (01:30)
[2024-03-23] MEDS: Meclizine 25 MG TAB PO (01:32)
--- NOTE | 2024-03-23 02:20 | W.EDPROG ---
Date of service: 03/23/24 Time of Service: 02:20 Medical Decision Making Patient was signed out to me by my colleague Jakob Britton. Please refer to his HPI, physical exam, assessment and plan. At time of signout we are awaiting CT scan results. CT scan results demonstrate no acute findings. Otherwise benign vascularity. Laboratory workup returned unremarkable. On reassessment patient appears well. Mucous membranes are dry, no vertical or horizontal nystagmus that I can detect on exam. She does state that she feels floaty still. Unable to ambulate the patient secondary to her chronic mild ataxia. Differential still includes MS flare, peripheral vertigo, and less likely cerebellar stroke. Patient is certainly not a tPA candidate as her symptoms began nearly 20 hours ago. There is no evidence of large intracranial hemorrhage or other abnormality on CT imaging. Transiently the patient did have a blood pressure that dropped to the 50s systolic, I did go in and evaluate the patient at that time. She had no tachycardia. She was quite conversant, no diaphoresis, she stated that she did not feel abnormal otherwise. She looked notably clinically well and did not demonstrate symptoms that would reflect shock. No interventions were given and within 2 minutes her blood pressure was back up to the 120 systolic. We we will elect to give her an additional liter of lactated ringer however I suspect that the transient episode was secondary to a sympathetic/parasympathetic discoordination/imbalance likely made worse by her MS. Symptoms do not appear consistent with shock, massive PE or other abnormality otherwise as it was notably self-limited. With her persistent symptoms, the patient was given meclizine. We will plan to admit for continued observation and potential MRI if symptoms persist. This will help differentiate between less likely ischemic etiology and potential MS flare. Discussed the case with the hospitalist Dr. Allen, he agrees with the plan. I have extensively reviewed the treatment plan with the patient. I have addressed all patient concerns at this time. I have also discussed the plan with the admitting physician and they agree with the current assessment and plan and have agreed to assume responsibility for the patient. All parties demonstrate verbal understanding and agreement with our assessment and plan at this time. The documentation in this chart was dictated using [employer] dictation software. Please excuse any dictation errors. FINDINGS: ANTERIOR CIRCULATION: Right internal carotid artery: Intracranial segment is patent with no significant stenosis. No aneurysm. Right middle cerebral artery: No occlusion or significant stenosis. No aneurysm. Right anterior cerebral artery: No occlusion or significant stenosis. No aneurysm. Left internal carotid artery: Intracranial segment is patent with no significant stenosis. No aneurysm. Left middle cerebral artery: No occlusion or significant stenosis. No aneurysm. Left anterior cerebral artery: No occlusion or significant stenosis. No aneurysm. POSTERIOR CIRCULATION: Right vertebral artery: No occlusion or significant stenosis. No aneurysm. Left vertebral artery: No occlusion or significant stenosis. No aneurysm. Basilar artery: See Superior cerebellar arteries finding. Right posterior cerebral artery: See Other arteries finding. Left posterior cerebral artery: See Other arteries finding. Superior cerebellar arteries: The basilar artery terminates as superior cerebellar arteries. Preserved bilateral circulation with widely prominent bilateral posterior communicating arteries. Other arteries: Preserved circulation. Left posterior cerebral artery normal. Preserved circulation. Right posterior cerebral artery normal. Brain: Volume loss and chronic small vessel ischemic change. No brain edema. No intracranial hemorrhage. Cerebral ventricles: No ventriculomegaly. Bones/joints: Unremarkable. No acute fracture. Soft tissues: Unremarkable. IMPRESSION: 1. No acute brain findings. 2. No acute vascular findings. FINDINGS: Right common carotid artery: No stenosis. No dissection or occlusion. Right internal carotid artery: No stenosis of the extracranial segment. No dissection or occlusion. Right external carotid artery: No occlusion or stenosis of the origin. Left common carotid artery: No stenosis. No dissection or occlusion. Left internal carotid artery: No stenosis of the extracranial segment. No dissection or occlusion. Left external carotid artery: No occlusion or stenosis of the origin. Right vertebral artery: No stenosis. No dissection or occlusion. Left vertebral artery: Left vertebral artery terminates as an inferior cerebellar artery. Soft tissues: Normal. No significant soft tissue swelling. Bones/joints: No acute fracture. IMPRESSION: REFERENCES: NASCET CRITERIA. The degree of stenosis in the cervical segment of the internal carotid artery is based on NASCET criteria. Normal is no stenosis. Mild is less than 50% stenosis. Moderate is 50- 69% stenosis. Severe is 70% to 99% stenosis. Total occlusion is no detectable patent lumen. Thank you for allowing us to participate in the care of your patient. Dictated and Authenticated by: Lambert Umana MD 03/23/2024 1:11 AM Eastern Time ([place] & [place]) Quality:[facility] Health Related Social Needs: No Data to Display Sign Out Sign Out Data: Sign Out Comment: Patient had onset of dizziness/vertigo with subjective visual changes and sensory deficits at 0745 this morning. Difficult to discern cerebellar signs on exam with dysmetria and baseline tremor of chronic MS. Signed out with CTA pending to Dr. Mason, likely admit vs MRI in AM Last updated by Thomas Britton PA at 03/22/24 22:28 Discharge Plan Disposition Patient Disposition: Admit to [facility] Condition: Good Discharge Details Chief Complaint: GenMedical Clinical Impression: Light-headedness Primary Care Provider: Elizabeth Nunn ED Provider: Thomas Mason Home Meds and New Rx's Prescriptions: No Action melatonin 3 mg tablet 6 mg PO HS turmeric root extract 500 mg capsule 500 mg PO DAILY spironolactone 50 mg tablet 50 mg PO DAILY Qty: 90 1RF bupropion HCl 300 mg tablet extended release 24 hr 300 mg PO QAM Qty: 90 1RF metoprolol succinate 50 mg tablet extended release 24 hr 50 mg PO DAILY Qty: 90 3RF gabapentin 300 mg capsule 300 mg PO TID baclofen 20 mg tablet 40 mg PO TID Qty: 540 3RF lisinopril 40 mg tablet 40 mg PO DAILY Qty: 90 3RF B Complex Plus Vitamin C 1 EACH capsule 1 cap PO DAILY Probiotic and Acidophilus 1 EACH capsule 1 cap PO DAILY pedi multivit 17-iron fumarate 1 EACH tablet,chewable 2 tab PO DAILY calcium carbonate-vitamin D3 1 EACH tablet 1 ea PO DAILY glucosamine sulf-chondroitinSA 1 EACH capsule 1 ea PO BID cholecalciferol (vitamin D3) 5,000 UNIT tablet 5,000 unit PO DAILY amlodipine 5 mg tablet 5 mg PO DAILY Qty: 90 3RF dalfampridine [Ampyra] 10 mg tablet extended release 12 hr 10 mg PO BID Qty: 180 3RF duloxetine 60 mg capsule,delayed release(DR/EC) 60 mg PO DAILY Qty: 90 3RF modafinil [Provigil] 200 mg tablet 200 mg PO BID Qty: 180 1RF omeprazole 20 mg capsule,delayed release(DR/EC) 20 mg PO DAILY Qty: 90 3RF (DME) Upright Walker See Rx Instructions .Route .MEDSUPPLY Qty: 1 0RF Rx Instructions: As directed timolol maleate 0.5 % drops 1 drp ophthalmic (eye) DAILY Patient Comments: INSTILL 1 DROP INTO BOTH EYES EVERY MORNING magnesium 500 mg tablet 500 mg PO DAILY fluticasone propionate 50 mcg/actuation [place],Suspension 1 spray INTRANASAL BID Rx Instructions: administer into each nostril cyclobenzaprine 10 mg Tablet 5 mg PO TID PRN PRNQty: 0 0RF polyethylene glycol 3350 17 gram Powder In Packet 17 - 34 g PO BID PRN PRN (Reason: Constipation) Qty: 0 0RF
--- NOTE | 2024-03-23 05:36 | W.PM.HP.N ---
Date of service: 03/23/24 Time of Service: 05:36 Assessment and Plan Assessment and plan (1) Dizziness: Status: Acute Assessment and plan: Acute onset dizziness that seems to be primarily a visual disturbance on the morning prior to admission. Given her complex history and difficult neurologic exam, I agree that the etiology remains unclear and may be multifactorial. Differential includes serious conditions such as cerebrovascual disease and cardiac disease, and she would not be safe to go home, so I agree with admission for observation and further assessment. Acuity of onset and risk factors make posterior circulation stroke in the DDX. The CTA head/neck are reassuring, but this does not rule out cerebellar pathology. Full neurologic exam limited by her baseline deficits and inability to walk. She was not started on antiplatelet agent in the ED. I don't think the presenation is constient with a CVA so will not start these agents at this point. MS flair also in the differential, will plan to repeat MRI. This may be simply related to polypharmacy, specifically the addition of gabapentin to an already complex regimen. Stop this for now. Drops in blood pressure while she was in the emergency room bring up possibility of autonomic dysfunction. Her AIDE also suggests low functional circulating volume state. She did respond to fluids. Her MS and/or her medications may be causing some autonomic dysfunction including muscle relaxors and SNRI, but none of them are new. Tick panel also sent in the ED. EKG/tropnins are reassuring. Monitor on telemetry. Consider echo if symptoms persist. BPPV or other peripheral vertigo also in the differential. Maneuvers limited by her chornic neurologic condition, but the history is not highly suggestive of vertigo. I do not note primary eye pathology on general exam, but consider ophtho exam on f/u if work up negative. (2) Secondary progressive multiple sclerosis: Status: Chronic Assessment and plan: MS flair is in the differential. She sees Dr. Kent. For now, continue her outpatient dalfampridine. This can cause dizziness, but it is not new. Will also continue her antispasmotic baclofen. Touch base with Baldo Chinchilla tomorrow. (3) Acute renal insufficiency: Status: Acute Assessment and plan: Cr to 1.1 up from 0.5. As above, likely pre-renal. She got fluids. Monitor for obstruction given h/o neurogenic bladder, bladder scan now. (4) Essential hypertension: Status: Chronic Assessment and plan: Per patient/ her blood pressure had been running higher, though it dropped in the emergency room without a clear cause. For now, we will continue her outpatient blood pressure regimen unless her renal function does not improve. (5) DVT prophylaxis: Status: Acute Assessment and plan: LMWH History of Present Illness History of Present Illness Chief Complaint: lightheadednesss Narrative: 58 yo F with hypertension, secondary progressive multiple sclerosis complicated by neurogenic bladder and bowell, spasticity, and recurrent falls who presented to the emergency room the evening prior to admission feeling floaty and dizzy all day. She states she noted this when she woke up around 7:30 am. No spinning feeling, not falling to one direction, she doesn't feel like she is going to pass out. She feels like her vision has floating wavey disturbance that is most notable when looking at something near. She states she first started noticing this type of eye symptoms after her hospitalization for hip re-fracture 2 months ago, but the level of disturbance was much more starting yesterday morning. She denies any double vision. She can read things across the room. Her vision is more abnormal centrally, she doen't note loss of one side of her vision or the other, or one eye or the other. Her voice is more horse, but no swallowing differences. No focal numbness or weakness. No change in bowel or bladder function. She has no eye pain or headache or nausea/vomiting. She was already using a wheelchair or walker to get around, and the visual disturbance makes her feel more unsteady and unsafe on her feet. She states the only medication that was new after her recent hip fracture was gabapentin. This had ran out, and she just got a refill and restarted this 4-5 days ago. She has not been taking cyclobenzaprine on her list. She hasn't changed her MS medication or others in a long time. Review of Systems All systems reviewed & are unremarkable except as noted in HPI and below Constitutional Constitutional: Reports frequent falls Eyes Eyes: Reports as per HPI, Reports floaters, Denies loss of peripheral vision and Denies photophobia ENT Ears, Nose, Mouth, and Throat: Reports as per HPI, Denies abnormal hearing, Reports dry mouth, Denies otalgia, Reports hoarseness, Denies nasal congestion, Denies nasal discharge and Denies sore throat Cardiovascular Cardiovascular: Denies chest pain Neurologic Neurologic: Reports as per HPI, Denies abnormal hearing, Denies abnormal movements, Denies confusion, Reports frequent falls, Denies lack of coordination, Denies seizure-like activity and Denies sensory deficit Psychiatric Psychiatric: Denies confusion and Denies mood swings PFSH All Active Problems (Updated 03/23/24 @ 06:25 by Damien Allen) Acute renal insufficiency (Acute) DVT prophylaxis (Acute) Dizziness (Acute) Leg length discrepancy (Acute) Overweight with body mass index (BMI) 25.0-29.9 (Acute) Osteoporosis (Chronic) normal bone density study, pending endocrine consult. Secondary progressive multiple sclerosis (Chronic 1991) Essential hypertension (Chronic 09/02/13) Foot drop, left (Acute 05/17/15) Neurogenic bladder (Acute 01/13/16) Spasticity (Chronic 05/17/15) Synovial cyst of popliteal space (Acute) Urge incontinence of urine (Acute 08/08/12) Memory loss (Chronic) Depression (Chronic) Fatigue (Acute) Acquired pes planus of right foot (Chronic) chronic pain in foot; possible surgery Medical History Periprosthetic fracture of shaft of femur Closed right femoral fracture Urinary incontinence Right femoral fracture Hyponatremia Anemia Murmur, cardiac Closed subcapital fracture of left femur S/P L BELEN --DOS 03/15/22 Spinal stenosis of lumbar region with radiculopathy GERD (gastroesophageal reflux disease) Left carpal tunnel syndrome managed non-surgically Optic neuritis Surgical History S/P total right hip arthroplasty due to fracture, required revision x 2 Status post lumbar laminectomy (~07/2022) 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 S/P ovarian cystectomy S/P tonsillectomy and adenoidectomy S/P left knee arthroscopy partial medial meniscectomy, L Status post bunionectomy Status post myringotomy with insertion of tube Family History Mother , age 76 Diabetes Essential hypertension Asthma Father , age 55 Substance abuse Essential hypertension Hypercholesterolemia Alcohol abuse Suicide and self-inflicted injuries by jumping from high place Brother , of suicide 03/2023 Alcohol abuse Substance abuse Suicide Maternal Grandfather , age 68 Essential hypertension Hyperlipidemia Stroke Liver cancer Paternal Grandfather , age 78 Stomach cancer Maternal Grandmother , age 97 Diabetes Essential hypertension Hyperlipidemia Paternal Grandmother , age 76 Dementia Daughter No problems noted. Social History Smoking/Tobacco Use Status: Former Tobacco Use tobacco type: cigarettes Quit Date: 11/12/07 Tobacco: How many years used: 12 Second Hand Exposure: Yes Smoking risk assessment performed?: Yes Alcohol Intake: current Alcohol Intake frequency: a few times a month Alcohol type: beer, wine and hard liquor Drug use: Daily Substance use type: marijuana Caregiver/Support person: No Household members: spouse Housing: other Details: trailer Number of Children: 1 Communication Needs: None Education Level: college Do you need help understanding health information?: Never current occupation: 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 Pets and animals: Yes Pets and animals: cat(s) Sexually active: Yes Do you think of yourself as: straight/heterosexual Current gender identity: female What is your relationship status?: How often do you talk on the phone with friends or family?: never How often do you get together with friends or relatives?: never How often do you attend zoroastrianism or christianity services?: decline to answer Do you belong to any clubs or organized social groups?: no Panel score (0-1 are the most socially isolated patients): 1 What type of physical activity do you participate in: walking and bicycling Duration: < 15 minutes/day Frequency: 3-4 times per week Veda/Pentecostalism: None Special veda needs: No Seatbelt use: always Helmet use: Yes Helmet use: sometimes Drive intox or ride w/intox local delivery driver: No Do you feel safe at home: Yes Do you feel safe in your relationship?: Yes Additional Social history: Enjoys reading, cross-stitch. Meds Allergies and Home Medications Allergies Allergy/AdvReac Type Severity Reaction Status Date / Time Sulfa (Sulfonamide Allergy Intermediate SKIN RASH Verified 01/04/24 09:22 Antibiotics) Penicillins Allergy Unknown RASH Verified 01/04/24 09:22 chlorthalidone AdvReac Severe Hyponatremi Verified 01/04/24 09:22 a codeine AdvReac Unknown NAUSEA Verified 01/04/24 09:22 Home Medications Medication Instructions Recorded Confirmed Type Lactobacillus comb 1 cap PO DAILY 02/04/13 03/23/24 History no.5-TWS-dexibmxqli 300 million cell-250 mg capsule (Probiotic and Acidophilus) vitamin B comp and C no.3 15 mg-10 1 cap PO DAILY 02/04/13 03/23/24 History mg-50 mg-5 mg-300 mg capsule (B Complex Plus Vitamin C) calcium carbonate 600 mg-vitamin 1 ea PO DAILY 01/26/15 03/23/24 History D3 5 mcg (200 unit) tablet cholecalciferol (vitamin D3) 125 5,000 unit PO DAILY 01/26/15 03/23/24 History mcg (5,000 unit) tablet glucosamine sulfate 250 1 ea PO BID 01/26/15 03/23/24 History mg-chondroitin sulfate A 200 mg capsule melatonin 3 mg tablet 6 mg PO HS 03/25/19 03/23/24 History turmeric root extract 500 mg 500 mg PO DAILY 05/07/19 03/23/24 History capsule magnesium 500 mg tablet 500 mg PO DAILY 04/19/22 03/23/24 History amlodipine 5 mg tablet 5 mg PO DAILY #90 tabs 06/26/23 03/23/24 Rx dalfampridine 10 mg 10 mg PO BID #180 tabs 07/16/23 03/23/24 Rx tablet,extended release,12 hr (Ampyra) fluticasone propionate 50 1 spray intranasal BID 08/19/23 03/23/24 History mcg/actuation nasal spray,suspension cyclobenzaprine 10 mg tablet 5 mg (1/2 x 10 mg) PO TID PRN PRN 08/28/23 03/23/24 Rx #0 tabs duloxetine 60 mg capsule,delayed 60 mg PO DAILY #90 caps 09/13/23 03/23/24 Rx release timolol maleate 0.5 % eye drops 1 drp ophthalmic (eye) DAILY 09/17/23 03/23/24 History modafinil 200 mg tablet (Provigil) 200 mg PO BID #180 tabs 10/08/23 03/23/24 Rx omeprazole 20 mg capsule,delayed 20 mg PO DAILY #90 caps 10/11/23 03/23/24 Rx release baclofen 20 mg tablet 40 mg (2 x 20 mg) PO TID #540 tabs 10/18/23 03/23/24 Rx lisinopril 40 mg tablet 40 mg PO DAILY #90 tabs 10/18/23 03/23/24 Rx bupropion HCl 300 mg 24 hr tablet, 300 mg PO QAM #90 tabs 10/19/23 03/23/24 Rx extended release metoprolol succinate 50 mg 50 mg PO DAILY #90 tabs 10/19/23 03/23/24 Rx tablet,extended release 24 hr spironolactone 50 mg tablet 50 mg PO DAILY #90 tabs 10/19/23 03/23/24 Rx Upright Walker #1 ea 11/02/23 01/04/24 Rx gabapentin 300 mg capsule 300 mg PO TID 01/04/24 03/23/24 History acetaminophen 500 mg tablet mg 03/23/24 History Exam Narrative Exam Narrative: GEN: Alert and oriented x 4. pleasant and cooperative, gives linear history. No acute distress at rest. HEENT: Head atraumatic. Conjunctiva clear, no icterus. PEERL, EOMI. no rhinorrhea. MMM, OP benign. Neck is supple with no pain with ROM, no masses or lymphadenopathy, trachea midline LUNGS: CTAB with normal effort CV: RRR with no murmurs, gallops, or rubs. No carotid bruits, pulses 2+ alma ABD: +BS, soft, NT/ND EXT: no cyanosis, clubbing, or edema. Right leg shortened with a foot deformity. ROM limited at right hip but she is able to move the leg without severe pain MSK: No joint redness or swelling, as above. NEURO: CN 2-12 grossly intact, but voice is raspy. Visual field intact to confrontation. Reads white board across room. No nystagmus, normal head impulse test. Negative pronator drift. Normal FNF. Normal movement of 4 extremities, sensation symmetric to light touch. Normal speech and coordination. DTRs symmetric alma, but a little easier to illicit on left than right at patella. No tremor. She was able to stand with support and pivot to commode SKIN: No rashes or open wounds. PSYCH: normal mood and affect, normal thought process Results Imaging EKG: report reviewed and image reviewed (Sinus bradycardia 51, nl axis, intervals. No ischemic ST-T abnormalities. LVH?) Imaging Studies: CT/CTA Head: 1. No acute brain findings. 2. No acute vascular findings. CTA neck: no vascular findings Labs 03/22/24 22:00 03/23/24 08:14 Labs: Laboratory Results - last 24 hr 03/22/24 03/22/24 21:44 22:00 WBC 6.44 RBC 3.96 Hgb 12.8 Hct 39.7 MCV 100 H MCH 32.3 MCHC 32.2 RDW 13.7 Plt Count 334 MPV 8.6 Immature Gran % 0.2 Neutrophils % 52.4 Lymphocytes % 34.9 Monocytes % 9.2 Eosinophils % 2.5 Basophils % 0.8 Nucleated RBC % 0.0 Absolute Neutrophils 3.38 Absolute Lymphocytes 2.25 Absolute Monocytes 0.59 Absolute Eosinophils 0.16 Absolute Basophils 0.05 ESR 17 Sodium 139 Potassium 4.2 Chloride 101 Carbon Dioxide 29.2 Anion Gap 8.8 BUN 25 H Creatinine 1.1 H Est GFR (CKD-EPI 2020) 58.61 Glucose 148 H Calcium 9.2 Magnesium 2.5 H Total Bilirubin 0.2 AST 17 ALT 24 Alkaline Phosphatase 185 H Troponin I < 50 C-Reactive Protein < 0.50 Total Protein 7.4 Albumin 4.1 TSH 3.71 Urine Color Yellow Urine Clarity Clear Urine pH 6.0 Ur Specific [place] 1.020 Urine Protein Negative Urine Ketones Negative Urine Blood Negative Urine Nitrite Negative Urine Bilirubin Negative Urine Urobilinogen 0.2 Ur Leukocyte Esterase Negative Urine Glucose Negative Last Vital Signs Temp 36.8 C 03/23/24 02:51 Pulse 64 03/23/24 02:51 Resp 18 03/23/24 02:51 BP 133/70 03/23/24 02:51 Pulse Ox 93 03/23/24 02:51 PAWSS Have you Been Recently Intoxicated or Drunk Within the Last 30 days?: No Have you Ever Experienced Previous Episodes of Alcohol Withdrawal?: No Have you ever Experienced Withdrawal Seizures?: No Have you ever Experienced Delirium Tremens(DT)s?: No Have you ever undergone Alcohol Rehabilitation Treatment (i.e, inpt ot outpatient treatment programs)?: No Have you ever Experienced Blackouts?: No Have you ever Combined Alcohol with other Downers within the last 90 days?: No Have you ever Combined Alcohol with any other Substance of Abuse during the last 90 days?: No Positive Blood Alcohol level on Presentation? [PCS.BAL]: No Evidence of Increased Autonomic Activity (i.e. HR>120, tremor, sweating, agitation, nausea)?: No Result: 0 Time Spent Time spent with Patient: 55-74 minutes Time was spent: preparing to see the patient(eg.review tests), obtaining and/or reviewing separately otained hiistory, ordering medications,tests, procedures, referring, communicating with other health career technical education instructor, indepentently interpreting results, counseling the patient and care coordination
[2024-03-23 08:42] LABS: Anion Gap 7.7 mmol/L (3-11); BUN 19 mg/dL (7-18); CO2 30.3 mmol/L (21.0-32.0); CREATININE 0.8 mg/dL (0.55-1.02); Calcium 9.2 mg/dL (8.5-10.1); Chloride 106 mmol/L (98-107); Estimated GFR 85.89 (mL/min/1.73m2); Glucose 97 mg/dL (74-106); Potassium 3.9 mmol/L (3.5-5.1); Sodium 144 mmol/L (136-145)
--- NOTE | 2024-03-23 08:54 | PT.INIE ---
Date of service: 03/23/24 Time of Service: 09:15 PT Notes Visit Reasons: Dizziness Date: 03/23/24 Referring Doctor: Damien Allen PT Orders: PT CONSULT: Fall safety assessment, urgent, MS, admitted with dizziness, history of falls Precautions: Standard, fall risk Patient Profile/Admitting Diagnosis: 58-year-old female presenting to ER yesterday with feeling of floaty/dizzy and visual changes, in absence of any other new symptoms in setting chronic MS and global weakness. She has been admitted for observation while awaiting results of medical work up. PT order for fall safety assessment, with documented known increase in falls as of recent. Social History/Home Situation: Lives in a trailer with her , ramp to enter. Premorbid level of function: Short distance ambulation within home of more than 3 min with RW, alternating with WC Equipment Owned/DME: WC, RW Subjective: Patient denies increase in falls, but reports legs give way after 3-5 min of standing or walking and they can no longer hold her up. She stays close to a chair to sit prior to this happening. She has new symptoms of feeling floaty, kind of dizzy, and has up close visual difficulty. This dizzy feeling is not dependent on head movement, it is constant. She is unable to read as the letters are not crisp and clear, but able to focus far away. She feel she has gained some strength with participation in PT as of recent, now able to stand 5 min vs 3 min at start of therapy. She denies double vision, nausea, worsening weakness or motor control changes. Uses a lift on right shoe to accommodate leg length discrepancy. Objective: General Observation: Sitting in WC, finishing breakfast, IV port Rt cubitoal fossa, pleasant and clear headed Mental Status: A & O x3 Vitals: Stable per nursing records ROM: Right Upper Extremity: WFL Left Upper Extremity: WFL Right Lower Extremity: WFL Left Lower Extremity:WFL Strength: Right Upper Extremity: Grossly 4/5 throughout Left Upper Extremity: Grossly 4/5 throughout Right Lower Extremity: Hip flex 3+/5, knee ext/flex 4+/5, DF 4+/5, PF 4/5 Left Lower Extremity: Hip flex 4-/5, knee ext/flex 4+/5, DF 4+/5, PF 4/5 Bed Mobility/Transfers/function: Bed mobility Independent Supine to EOB Independent STS SBA Bed to chair distant supervision STS from toilet Independent, toilet hygiene Independent Gait: 150 ft RW, supervision, elevated shoe on Right. Mild forward bend, worsening with distance as she weakness. Decreased stance R LE, mild right lean with R weightbearing. Special tests: VOR: WNL Smooth visual pursuit: WNL VOR cancellation: WNL Vision: Difficulty with near site acuity Balance: Static Sitting: Good Dynamic Sitting: Good Static Standing: Fair with RW Dynamic Standing: Fair with RW Stage 4 Balance Test Time (seconds) Feet together 5, CG Partial tandem Unable Tandem Unable One foot Unable Standing eyes close, sway, CG x 5 sec Standing EO, WBOS 10 sec easily Special Tests: Mobility Limitations Standardized Measure [facility] [place] AM-PAC 6 clicks Basic Mobility Inpatient Short Form: 20% disability Informed Consent/Education: Patient instructed in purpose of PT consult and plan of care. Treatment: Initial evaluation [id number] Assessment: Patient is a 58 year old female referred to physical therapy services with reason for PT evaluation of fall safety assessment with observation admission while further assessing cause of dizzy and floaty feeling, with known increase in falls as of recent, h/o of R femur fracture in 2022, chronic MS. She is currently enrolled in outpatient PT for strengthening, scheduled for tomorrow. Patient presents with chronic strength, balance, and gait impairments related to chronic MS medical issues - patient presents at baseline despite new symptoms of visual disturbance and floaty dizzy feeling. This dizzy feeling is not dependent on head movement, it is constant - so not felt to be vertigo. She is safe discharge home with given baseline status when medically cleared with return to outpatient PT service. Impairment level findings: LE weakness Poor balance Gait dysfunction Impairments are contributing to the following functional limitations: Dependence on AD Supervision for lengthy ambulation [facility] 20% disability Unable to stand beyond 5 min at a time to complete ADL's or ambulation Patient is assessed as low complexity based on the following: History: MS, increase fall risk, fear of falling, see EMR, lives in a private home with Examination: impairment and functional limitations as noted above Presentation: Evolving, due to dizziness symptoms Decision Making: Easy Plan of Care/Treatment Plan: Inpatient PT discharge Home with husbands support, resume outpatient PT service. TREATMENT CODE/TIME: 95292. 9:15-9:45 Tina Forbes, MPT [place] [facility]
[2024-03-23] MEDS: Enoxaparin 40 MG/0.4 ML SYR SC (09:43)
[2024-03-23] MEDS: Timolol 0.5% 5 ML BTL OP (09:44)
[2024-03-23] MEDS: Cholecalciferol (Vitamin D3) 1,000 UNIT TAB 5000 UNITS PO (09:44)
[2024-03-23] MEDS: Normal Saline Flush 10 ML SYR IVP ×2 (09:44→21:53)
[2024-03-23] MEDS: Fluticasone NASAL SPRAY 16 GM BTL NS ×2 (09:44→21:54)
[2024-03-23] MEDS: DULoxetine 30 MG CAP 60 MG PO (09:45)
[2024-03-23] MEDS: buPROPion-XL 150 MG TABCR 300 MG PO (09:45)
[2024-03-23] MEDS: Vitamins B Comp w/C TAB 1 TAB PO (09:45)
[2024-03-23] MEDS: Lisinopril 20 MG TAB 40 MG PO (09:45)
[2024-03-23] MEDS: Omeprazole 20 MG CAPCR PO (09:45)
[2024-03-23] MEDS: Glucosamine/Chondroitin CAP 1 CAP PO ×2 (09:45→21:52)
[2024-03-23] MEDS: Baclofen 10 MG TAB 40 MG PO ×3 (09:45→21:52)
[2024-03-23] MEDS: Calcium 600mg/Vit D 200U TAB 1 TAB PO (09:45)
[2024-03-23] MEDS: Multivitamin TAB 1 TAB PO (09:46)
[2024-03-23] MEDS: Metoprolol CR 50 MG TABCR PO (09:46)
[2024-03-23] MEDS: amLODIPine 5 MG TAB PO (09:46)
[2024-03-23] MEDS: Modafinil 100 MG TAB 200 MG PO ×2 (09:46→17:11)
[2024-03-23] MEDS: Spironolactone 50 MG TAB PO (09:46)
[2024-03-23] MEDS: Magnesium Oxide 400 MG TAB PO (09:46)
--- NOTE | 2024-03-23 11:57 | INITIAL_ITS ---
Date of service: 03/23/24 Time of Service: 11:57 Care Management Initial Assmt Initial Assessment REASON FOR HOSPITALIZATION:: Dizziness PREVIOUS FUNCTIONAL STATUS/SOCIAL/FAMILY SUPPORTS:: Steffi lives in [place] with her Pepe in a single level home. Their only daughter lives in [place], [place]. Steffi formerly worked at [employer] but was forced into early intermediate due to worsening symptoms of Multiple Sclerosis. Steffi states her is a sales & service associate, so he does all of the cooking. She has a FWW, rollator and w/c that she uses for ambulation. She additionally has a brace for her right foot and ankle to accommodate for instability and leg length discrepancy. CURRENT FUNCTIONAL STATUS:: Steffi was sitting up in her chair when CM met with her. She stated that she is feeling much better today. She reported that her vision is not completely better, but it is not as shaky as it had been. Per report, nursing will monitor orthostatic blood pressure, and she will likely have an MRI tomorrow. Steffi stated that she has been going to outpatient PT twice a week to utilize their pool for therapy, which she enjoys and feels she has seen improvement recently. She stated that her will drive her home when ready; she was hoping to return home today, but she is agreeable to remaining if medically necessary. CM will continue to follow. ADVANCE DIRECTIVES:: On file; Pepe Coker is appointed as HCA. Has patient been provided with info about the portal/API?: Yes Did the patient sign up for the portal?: Yes (active) INSURANCE COVERAGE / FINANCIAL ISSUES:: [facility] MCR replacement CURRENT HOME/COMMUNITY SERVICES/EQUIPMENT:: w/c, FWW, 4WW, commode. Outpatient PT. PRIMARY CARE PHYSICIAN:: Elizabeth Nunn POTENTIAL DISCHARGE NEEDS:: Evaluations for further needs, follow up appointments PATIENT/FAMILY EDUCATION NEEDS:: Review discharge instructions and limitations, discussion of self care needs including ask me three. ANTICIPATED BARRIERS TO DISCHARGE:: None identified. TRANSPORTATION:: Via private vehicle by her . PLAN:: Anticipate Steffi will return home once medically cleared, and will resume outpatient PT. Her will drive her home via private vehicle. She will follow up with her PCP and discharge plan of care. CM will continue to follow. PFSH All Active Problems (Updated 03/23/24 @ 06:25 by Damien Allen) Acute renal insufficiency (Acute) DVT prophylaxis (Acute) Dizziness (Acute) Leg length discrepancy (Acute) Overweight with body mass index (BMI) 25.0-29.9 (Acute) Osteoporosis (Chronic) normal bone density study, pending endocrine consult. Secondary progressive multiple sclerosis (Chronic 1991) Essential hypertension (Chronic 09/02/13) Foot drop, left (Acute 05/17/15) Neurogenic bladder (Acute 01/13/16) Spasticity (Chronic 05/17/15) Synovial cyst of popliteal space (Acute) Urge incontinence of urine (Acute 08/08/12) Memory loss (Chronic) Depression (Chronic) Fatigue (Acute) Acquired pes planus of right foot (Chronic) chronic pain in foot; possible surgery Medical History Periprosthetic fracture of shaft of femur Closed right femoral fracture Urinary incontinence Right femoral fracture Hyponatremia Anemia Murmur, cardiac Closed subcapital fracture of left femur S/P L BELEN --DOS 03/15/22 Spinal stenosis of lumbar region with radiculopathy GERD (gastroesophageal reflux disease) Left carpal tunnel syndrome managed non-surgically Optic neuritis Surgical History S/P total right hip arthroplasty due to fracture, required revision x 2 Status post lumbar laminectomy (~07/2022) 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 S/P ovarian cystectomy S/P tonsillectomy and adenoidectomy S/P left knee arthroscopy partial medial meniscectomy, L Status post bunionectomy Status post myringotomy with insertion of tube Family History Mother , age 76 Diabetes Essential hypertension Asthma Father , age 55 Substance abuse Essential hypertension Hypercholesterolemia Alcohol abuse Suicide and self-inflicted injuries by jumping from high place Brother , of suicide 03/2023 Alcohol abuse Substance abuse Suicide Maternal Grandfather , age 68 Essential hypertension Hyperlipidemia Stroke Liver cancer Paternal Grandfather , age 78 Stomach cancer Maternal Grandmother , age 97 Diabetes Essential hypertension Hyperlipidemia Paternal Grandmother , age 76 Dementia Daughter No problems noted. Social History Smoking/Tobacco Use Status: Former Tobacco Use tobacco type: cigarettes Quit Date: 11/12/07 Tobacco: How many years used: 12 Second Hand Exposure: Yes Smoking risk assessment performed?: Yes Alcohol Intake: current Alcohol Intake frequency: a few times a month Alcohol type: beer, wine and hard liquor Drug use: Daily Substance use type: marijuana Caregiver/Support person: No Household members: spouse Housing: other Details: trailer Number of Children: 1 Communication Needs: None Education Level: college Do you need help understanding health information?: Never current occupation: [employer] 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 Pets and animals: Yes Pets and animals: cat(s) Sexually active: Yes Do you think of yourself as: straight/heterosexual Current gender identity: female What is your relationship status?: How often do you talk on the phone with friends or family?: never How often do you get together with friends or relatives?: never How often do you attend mu-ism or yazidism services?: decline to answer Do you belong to any clubs or organized social groups?: no Panel score (0-1 are the most socially isolated patients): 1 What type of physical activity do you participate in: walking and bicycling Duration: < 15 minutes/day Frequency: 3-4 times per week Veda/Worship: None Special veda needs: No Seatbelt use: always Helmet use: Yes Helmet use: sometimes Drive intox or ride w/intox cdl bulk driver: No Do you feel safe at home: Yes Do you feel safe in your relationship?: Yes Additional Social history: Enjoys reading, cross-stitch. SDOH(Care Management) Screening Will the Patient Participate in the Screening?: Yes Do you worry about having a steady place to live?: no Problems where you live: no known problems In the past 12 months, have you had to go without electric, gas, oil or water in your home?: no Have you or anyone in your house had to go without enough food to eat?: no Has lack of transportation kept you from medical appointments or from doing things needed for daily living?: no Has anyone in your support network made you feel unsafe for any reason?: no
--- NOTE | 2024-03-23 15:22 | PGE_ITS ---
Date of Service Date of service: 03/23/24 Time of Service: 15:22 Assessment and Plan Assessment and plan (1) Dizziness: Status: Acute Assessment and plan: Patient actually denies that she actually had dizziness but describes more of a visual scotomata which things look blurred but no actual visual field loss. I reviewed her medications there is been no recent change in her medications although she did note that she ran out of her gabapentin and just got it refilled 1 week ago today however symptoms did not start until about 5 days after she been back on her gabapentin. She does not appear to have a new deficits and her visual score to monitor has resolved. At this point I will get an updated MRI since it has been 10 years since her last MRI scan and if this shows no new MS lesions and no evidence of CVA I think she can go home and follow-up with her electronic industrial controls mechanic and her neurologist as an outpatient. (2) Dehydration: Status: Acute Assessment and plan: Patient was orthostatic on admission and found to have acute renal insufficiency. BUN was elevated 25 creatinine 1.1 on admission which appears to be resolving BUN down to 19 creatinine 0.8 after IV fluids yesterday. (3) Acute renal insufficiency: Status: Acute Assessment and plan: As above (4) Secondary progressive multiple sclerosis: Status: Chronic Assessment and plan: As above (5) Essential hypertension: Status: Chronic Assessment and plan: Orthostatics were measured today and she was not orthostatic although she did have a drop her pressure from sitting to standing which she remained hypertensive even with standing. However it was noted that she was orthostatic on admission and may have been a little bit dehydrated which also may have contributed to her acute visual scotomata. (6) DVT prophylaxis: Status: Acute Assessment and plan: LMWH Subjective Subjective Interval history since last seen: Steffi states that her visual scotomata has resolved. She denies every having any dizziness, such as lightheadedness nor any vertigo component. she also denies any amaurosis fugax symptoms. Her Ct head and CTA head and neck were negative. She had no other focal neurologic complaints to suggest TIA/CVA and given how quickly her symptoms resolved, it makes MS flare unlikely. I told her that I would like her to stay for MRI of the brain tomorrow to be sure that there is not a small CVA or evidence of recurrence of M.S. If this is negative, then she could return home but should have opthalmology followup given her prior hx of optic neuritis (she is followed by Dr. Lefty Hernandez. Exam Narrative Exam Narrative: Steffi is sitting up in her wheelchair she is alert and orient x 3 no acute distress No facial asymmetry normal speech pattern Full extraocular motion intact Gross visual matthews intact to confrontation and finger counting no obvious visual field cuts Heart is regular rate and rhythm Lungs are clear to auscultation Motor exam she has pretty good range of motion and strength in upper extremities I did not test her lower extremities Objective Last Vital Signs Temp 36.8 C 03/23/24 11:49 Pulse 65 03/23/24 13:54 Resp 17 03/23/24 11:49 BP 170/101 H 03/23/24 13:54 Pulse Ox 99 03/23/24 11:49 Laboratory Results - last 24 hr 03/22/24 03/22/24 03/23/24 21:44 22:00 08:14 WBC 6.44 RBC 3.96 Hgb 12.8 Hct 39.7 MCV 100 H MCH 32.3 MCHC 32.2 RDW 13.7 Plt Count 334 MPV 8.6 Immature Gran % 0.2 Neutrophils % 52.4 Lymphocytes % 34.9 Monocytes % 9.2 Eosinophils % 2.5 Basophils % 0.8 Nucleated RBC % 0.0 Absolute Neutrophils 3.38 Absolute Lymphocytes 2.25 Absolute Monocytes 0.59 Absolute Eosinophils 0.16 Absolute Basophils 0.05 ESR 17 Sodium 139 144 Potassium 4.2 3.9 Chloride 101 106 Carbon Dioxide 29.2 30.3 Anion Gap 8.8 7.7 BUN 25 H 19 H Creatinine 1.1 H 0.8 Est GFR (CKD-EPI 2020) 58.61 85.89 Glucose 148 H 97 Calcium 9.2 9.2 Magnesium 2.5 H Total Bilirubin 0.2 AST 17 ALT 24 Alkaline Phosphatase 185 H Troponin I < 50 C-Reactive Protein < 0.50 Total Protein 7.4 Albumin 4.1 TSH 3.71 Urine Color Yellow Urine Clarity Clear Urine pH 6.0 Ur Specific [place] 1.020 Urine Protein Negative Urine Ketones Negative Urine Blood Negative Urine Nitrite Negative Urine Bilirubin Negative Urine Urobilinogen 0.2 Ur Leukocyte Esterase Negative Urine Glucose Negative PAWSS Have you Been Recently Intoxicated or Drunk Within the Last 30 days?: No Have you Ever Experienced Previous Episodes of Alcohol Withdrawal?: No Have you ever Experienced Withdrawal Seizures?: No Have you ever Experienced Delirium Tremens(DT)s?: No Have you ever undergone Alcohol Rehabilitation Treatment (i.e, inpt ot outpatient treatment programs)?: No Have you ever Experienced Blackouts?: No Have you ever Combined Alcohol with other Downers within the last 90 days?: No Have you ever Combined Alcohol with any other Substance of Abuse during the last 90 days?: No Positive Blood Alcohol level on Presentation? [PCS.BAL]: No Evidence of Increased Autonomic Activity (i.e. HR>120, tremor, sweating, agitation, nausea)?: No Result: 0 Time Spent with Patient Time Spent with Patient: 35-49 minutes Time was spent: preparing to see the patient(eg.review tests), obtaining and/or reviewing separately otained hiistory, ordering medications,tests, procedures, referring, communicating with other health group care worker, indepentently interpreting results, counseling the patient and care coordination
[2024-03-23] MEDS: Melatonin 3 MG TAB 6 MG PO (21:52)
--- NOTE | 2024-03-24 | DI.MRI_ITS ---
Exam(s) MR BRAIN WO/W EXAM: MR BRAIN WO/W CLINICAL HISTORY: MS, dizziness TECHNIQUE: Multiplanar multisequence MRI of the brain was performed. CONTRAST MATERIAL: IV Contrast: 13 mL of Dotarem contrast administered. COMPARISON: MR MRI - BRAIN W/WO CONTRAST from 08/04/[address] BRAIN NECK CTA from 03/22/2024 FINDINGS: VENTRICLES AND EXTRA AXIAL SPACES: Normal in size and morphology for the patient's age. HEMORRHAGE: None. CEREBRAL PARENCHYMA: No focus of restricted diffusion to suggest acute infarct. No space-occupying le chanel identified. There are multiple T2 hyperintense signal lesions in the periventricular white matte r consistent with patient's known history of multiple sclerosis. None of the lesions show enhancemen t following contrast administration. There has been slight increase in size of a few of the lesions compared to 2013. MIDLINE SHIFT: None. BRAINSTEM/CEREBELLUM: Normal. CALVARIUM: Normal. ENHANCEMENT: No suspicious enhancement identified. VISUALIZED PARANASAL SINUSES/MASTOIDS: Clear. RINCON OF DIAMOND: Normal flow void. PITUITARY GLAND: Unremarkable. OTHER FINDINGS: IMPRESSION: 1. Multiple white matter lesions consistent with the patient's known history of multiple sclerosis. There has been slight increase in size of a few of the lesions compared to 2013. No enhancing lesion s are seen. DATA REPOSITORY:
[2024-03-24 03:27] VITALS: BP 120/63; PULSE 65; RESP 16; TEMP 36.1; O2SAT 95
[2024-03-24] MEDS: Normal Saline Flush 10 ML SYR IVP ×2 (04:39→08:00)
[2024-03-24 07:38] VITALS: BP 142/81; PULSE 68; RESP 17; TEMP 36.4; O2SAT 96
[2024-03-24] MEDS: Metoprolol CR 50 MG TABCR PO (07:56)
[2024-03-24] MEDS: Multivitamin TAB 1 TAB PO (07:56)
[2024-03-24] MEDS: Magnesium Oxide 400 MG TAB PO (07:56)
[2024-03-24] MEDS: buPROPion-XL 150 MG TABCR 300 MG PO (07:56)
[2024-03-24] MEDS: Cholecalciferol (Vitamin D3) 1,000 UNIT TAB 5000 UNITS PO (07:57)
[2024-03-24] MEDS: DULoxetine 30 MG CAP 60 MG PO (07:57)
[2024-03-24] MEDS: Glucosamine/Chondroitin CAP 1 CAP PO (07:57)
[2024-03-24] MEDS: Omeprazole 20 MG CAPCR PO (07:57)
[2024-03-24] MEDS: Modafinil 100 MG TAB 200 MG PO (07:57)
[2024-03-24] MEDS: Baclofen 10 MG TAB 40 MG PO ×2 (07:57→14:12)
[2024-03-24] MEDS: Vitamins B Comp w/C TAB 1 TAB PO (07:57)
[2024-03-24] MEDS: Calcium 600mg/Vit D 200U TAB 1 TAB PO (07:57)
[2024-03-24] MEDS: Spironolactone 50 MG TAB PO (07:57)
[2024-03-24] MEDS: Enoxaparin 40 MG/0.4 ML SYR SC (08:00)
[2024-03-24] MEDS: Fluticasone NASAL SPRAY 16 GM BTL NS (08:08)
[2024-03-24] MEDS: Timolol 0.5% 5 ML BTL OP (08:09)
--- NOTE | 2024-03-24 10:24 | PDOC.CMDIS ---
Date of service: 03/24/24 Time of Service: 10:24 LACE Index Scoring Tool Questions: Length of Stay (in days): 1 Was the patient admitted via the E.D.?: Yes Comorbidities: Connective Tissue Disease E.D. Visits: 1 Answers: Total Score: 8 Risk of Readmission: Low Risk Care Management Discharge Plan Reason for Hospitalization: Dizziness Discharge Plan: Steffi will return home and will resume outpatient PT. Her will drive her home via private vehicle. She will follow up with her PCP and discharge plan of care. Patient/Family Education Needs: Review discharge instructions and limitations, discussion of self care needs including ask me three. SDFL Health Related Social Needs: No Data to Display
[2024-03-24 11:14] LABS: Lyme Ab w Rflx to Lyme Confirm Negative (Negative)
[2024-03-24] MEDS: Gadoterate meglumine 20 ML SYRINGE IVP (11:52)
--- NOTE | 2024-03-24 14:09 | DSE_ITS ---
Date of service: 03/24/24 Time of Service: 14:09 DS: Diagnosis Discharge Diagnosis (1) Dizziness: Status: Resolved (2) Dehydration: Status: Resolved (3) Acute renal insufficiency: Status: Resolved (4) Secondary progressive multiple sclerosis: Status: Chronic (5) Essential hypertension: Status: Chronic (6) DVT prophylaxis: Status: Deleted Discharge Plan Disposition Patient Disposition: Home Condition: Good Discharge Details Reason For Visit: Dizziness Admit Date/Time: 03/23/24 01:44 Admit Provider: Damien Allen Attending Provider: Damien Allen Primary Care Provider: Elizabeth Nunn Hospital Course Hospital Course: 58 yo F with hypertension, secondary progressive multiple sclerosis complicated by neurogenic bladder and bowell, spasticity, and recurrent falls who presented to the emergency room the evening prior to admission feeling floaty and dizzy all day. Evaluation in the E.D. revealed severe hypotension (SBP 60's to 70's and diastolic BP in the 40's), and prerenal azotemia (BUN 25, creatinine 1.1, baseline 14 and 0.6), further evaluation for possible TIA/CVA was performed i ncluding CT/CTA head and neck which was negative for CVA nor any hemodynamic stenosis. She was monitored on telemetry and had no dysrhythmia. She was treated w/ iv fluids and her visual scotomat and dizziness resolved. A follow up MRI of brain was done (as she has not had an updated MRI in 10 yrs), and this showed multiple white matter lesions consistent w/ her hx of M.S. w/ some slight increase in the size of a few of her lesions compared to 2014. It was recommended she follow up w/ her neurologist to discuss this further and whether or not her treatment needs modification, however, I explained to her that she did not have any evidence of stroke and her symptoms were likely d/t dehydration and orthostasis. Her dose of her lisinopril and spironolactone was resumed prior to her discharge and her BP was much improved in the 120's to 150's. However, I did reduce her dose of both her lisinopril from 40 mg daily to 20 mg daily and reduced her spironolactone from 50 mg daily to 25 mg daily. I did request her to get follow up BMP in one week to be sure she is not getting dehydrated again. she needs to closely monitor her BP. She should follow up w/ her PCP within the week and also get a follow up w/ her neurologist regarding her M.S. Home Meds and New Rx's Prescriptions: Continued melatonin 3 mg tablet 6 mg PO HS turmeric root extract 500 mg capsule 500 mg PO DAILY metoprolol succinate 50 mg tablet extended release 24 hr 50 mg PO DAILY Qty: 90 3RF gabapentin 300 mg capsule 300 mg PO TID baclofen 20 mg tablet 40 mg PO TID Qty: 540 3RF B Complex Plus Vitamin C 1 EACH capsule 1 cap PO DAILY Probiotic and Acidophilus 1 EACH capsule 1 cap PO DAILY calcium carbonate-vitamin D3 1 EACH tablet 1 ea PO DAILY glucosamine sulf-chondroitinSA 1 EACH capsule 1 ea PO BID cholecalciferol (vitamin D3) 5,000 UNIT tablet 5,000 unit PO DAILY amlodipine 5 mg tablet 5 mg PO DAILY Qty: 90 3RF dalfampridine [Ampyra] 10 mg tablet extended release 12 hr 10 mg PO BID Qty: 180 3RF duloxetine 60 mg capsule,delayed release(DR/EC) 60 mg PO DAILY Qty: 90 3RF modafinil [Provigil] 200 mg tablet 200 mg PO BID Qty: 180 1RF omeprazole 20 mg capsule,delayed release(DR/EC) 20 mg PO DAILY Qty: 90 3RF (DME) Upright Walker See Rx Instructions .Route .MEDSUPPLY Qty: 1 0RF Rx Instructions: As directed bupropion HCl 300 mg tablet extended release 24 hr 300 mg PO QAM Qty: 90 1RF timolol maleate 0.5 % drops 1 drp ophthalmic (eye) DAILY Patient Comments: INSTILL 1 DROP INTO BOTH EYES EVERY MORNING magnesium 500 mg tablet 500 mg PO DAILY fluticasone propionate 50 mcg/actuation [place],Suspension 1 spray INTRANASAL BID Rx Instructions: administer into each nostril cyclobenzaprine 10 mg Tablet 5 mg PO TID PRN PRNQty: 0 0RF acetaminophen 500 mg tablet Patient Comments: TAKE 2 TABLETS BY MOUTH EVERY 8 HOURS NEEDED FOR PAIN Changed spironolactone 50 mg tablet 25 mg PO DAILY Qty: 90 1RF lisinopril 40 mg tablet 20 mg PO DAILY Qty: 90 3RF Discharge Instructions Instructions: Dehydration (DC) Additional Instructions: You were evaluated for symptoms of visual disturbance including blurred vision and symptoms of lightheadedness along w/ signs of dehydration including elevated BUN and creatinine (blood tests of kidney function) along w/ orthostatic hypotension (low blood pressure associated w/ postural changes). No stroke was seen on either your CT scan of the brain nor on your MRI of your brain. You have multiple sclerotic plaques of M.S. on the brain some which appear to have increased slightly in size since 2014. You should follow up w/ your neurologist about this. You did not have any enhancing lesions in the brain to suggest any cancers and no stroke was seen on the MRI. Your symptoms and your kidney lab tests and blood pressure improved w/ rehydration w/ iv fluids. We have reduced your lisinopril and spironolactone dose in half. Please get follow up labs next week to monitor your kidney function and see your PCP, Dr. Nunn for follow up on your blood pressure. Should you have any acute neurologic symptoms suggestive of a stroke, call 911 to be brought back to the hospital. Stand Alone Forms: Nursing Discharge Form Referrals: Elizabeth Nunn MD [Primary Care Provider] - 04/04/24 1:20 pm Irina Rogers MD [ [facility] STAFF PHYSICIAN] - (Please set up an apt within 70-10 days, I have called and left a message with the office to call you for this apt.) Activity:: Activity as Tolerated Equipment/Supplies:: No Equipment Needed Diet:: Normal Diet Discharge Orders Discharge Orders: Discharge Order (Routine); Ordered 03/24/24 Ordered By: Lowell Tucker Other Ambulatory Orders: Basic Metabolic Panel (Routine) Timeframe: 1 Week Facility: [facility] - Location: Laboratory Outpatient - [facility] Ordered By: Lowell Tucker Discharge Data Discharge Date/Time-TO BE ENTERED AT DEPARTURE: 03/24/24 15:34 DS: Summary Time Spent with Patient providing and/or coordinating discharge services: Less than 30 minutes Status at Discharge Functional status at discharge: wheelchair bound Overall status at discharge: patient is back to baseline Mental Status: mental status grossly normal Speech and Movement: speech and movement normal Mood: congruent mood Affect: normal affect Quality:SDOH Health Related Social Needs: No Data to Display Exam Psych Mental Status: mental status grossly normal Speech and Movement: speech and movement normal Mood: congruent mood Affect: normal affect DS: Data Vitals/I&O Vitals and I&O: Vital Signs Temperature 36.4 C 03/24/24 07:38 Temperature Source Tympanic 03/24/24 07:38 Pulse 68 03/24/24 07:38 Pulse Rhythm Regular 03/24/24 08:50 Pulse 52 L 03/23/24 01:31 Respiratory Rate 17 03/24/24 07:38 Respiratory Effort Normal, Non-Labored 03/24/24 08:50 Respiratory Depth Normal 03/24/24 08:50 Respiratory Pattern Normal 03/24/24 08:50 Blood Pressure 142/81 H 03/24/24 07:38 Blood Pressure Mean 80 03/23/24 01:31 Blood Pressure Position Sitting 03/22/24 21:30 Pulse Oximetry 96 03/24/24 07:38 Oxygen Delivery Method Room Air 03/24/24 07:38 Oxygen Flow Rate 0 03/24/24 07:38 Pain Level 2 03/24/24 08:31 Intake & Output 03/23/24 03/24/24 03/24/24 23:59 11:59 23:59 Intake Total 480 / 2100 Output Total 100 / 210 100 / 100 Balance 380 / 1890 -100 / -100 Weight 65.4 kg Intake: Oral 480 / 1080 Output: Urine 100 / 210 100 / 100 Other: Urine Color Yellow Yellow Yellow Urine Appearance Clear Cloudy Clear Urine Odor Normal Comment Pt voided in toilet independently 0800 Wears pads for occasional incontinence Voiding Methods Toilet Toilet Toilet Data Completed and Pending Labs on day of discharge: Labs from last 24 hours 03/22/24 22:00 Lyme Disease Antibody Negative PFSH All Active Problems (Updated 03/25/24 @ 00:09 by BELEN JONES) Medication monitoring encounter (Acute) Leg length discrepancy (Acute) Overweight with body mass index (BMI) 25.0-29.9 (Acute) Osteoporosis (Chronic) normal bone density study, pending endocrine consult. Secondary progressive multiple sclerosis (Chronic 1991) Essential hypertension (Chronic 09/02/13) Foot drop, left (Acute 05/17/15) Neurogenic bladder (Acute 01/13/16) Spasticity (Chronic 05/17/15) Synovial cyst of popliteal space (Acute) Urge incontinence of urine (Acute 08/08/12) Memory loss (Chronic) Depression (Chronic) Fatigue (Acute) Acquired pes planus of right foot (Chronic) chronic pain in foot; possible surgery Medical History Periprosthetic fracture of shaft of femur Closed right femoral fracture Urinary incontinence Right femoral fracture Hyponatremia Anemia Murmur, cardiac Closed subcapital fracture of left femur S/P L BELEN --DOS 03/15/22 Spinal stenosis of lumbar region with radiculopathy GERD (gastroesophageal reflux disease) Left carpal tunnel syndrome managed non-surgically Optic neuritis Surgical History S/P total right hip arthroplasty due to fracture, required revision x 2 Status post lumbar laminectomy (~07/2022) 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 S/P ovarian cystectomy S/P tonsillectomy and adenoidectomy S/P left knee arthroscopy partial medial meniscectomy, L Status post bunionectomy Status post myringotomy with insertion of tube Family History Mother , age 76 Diabetes Essential hypertension Asthma Father , age 55 Substance abuse Essential hypertension Hypercholesterolemia Alcohol abuse Suicide and self-inflicted injuries by jumping from high place Brother , of suicide 03/2023 Alcohol abuse Substance abuse Suicide Maternal Grandfather , age 68 Essential hypertension Hyperlipidemia Stroke Liver cancer Paternal Grandfather , age 78 Stomach cancer Maternal Grandmother , age 97 Diabetes Essential hypertension Hyperlipidemia Paternal Grandmother , age 76 Dementia Daughter No problems noted. Social History Smoking/Tobacco Use Status: Former Tobacco Use tobacco type: cigarettes Quit Date: 11/12/07 Tobacco: How many years used: 12 Second Hand Exposure: Yes Smoking risk assessment performed?: Yes Alcohol Intake: current Alcohol Intake frequency: a few times a month Alcohol type: beer, wine and hard liquor Drug use: Daily Substance use type: marijuana Caregiver/Support person: No Household members: spouse Housing: other Details: trailer Number of Children: 1 Communication Needs: None Education Level: college Do you need help understanding health information?: Never current occupation: 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 Pets and animals: Yes Pets and animals: cat(s) Sexually active: Yes Do you think of yourself as: straight/heterosexual Current gender identity: female What is your relationship status?: How often do you talk on the phone with friends or family?: never How often do you get together with friends or relatives?: never How often do you attend alevism or anglican services?: decline to answer Do you belong to any clubs or organized social groups?: no Panel score (0-1 are the most socially isolated patients): 1 What type of physical activity do you participate in: walking and bicycling Duration: < 15 minutes/day Frequency: 3-4 times per week Veda/Denominational: None Special veda needs: No Seatbelt use: always Helmet use: Yes Helmet use: sometimes Drive intox or ride w/intox skidder driver: No Do you feel safe at home: Yes Do you feel safe in your relationship?: Yes Additional Social history: Enjoys reading, cross-stitch. Time Spent with Patient Time Spent with Patient: <45 minutes Time was spent: preparing to see the patient(eg.review tests), ordering medications,tests, procedures, referring, communicating with other health acute care nursing assistant, indepentently interpreting results, counseling the patient and care coordination
[2024-03-26 01:05] LABS: Anaplasma phagocytophilum Negative (Negative); B. miyamotoi PCR Negative (Negative); Babesia divergens/MO-1 Negative (Negative); Babesia duncani Negative (Negative); Babesia microti Negative (Negative); Ehrlichia chaffeensis Negative (Negative); Ehrlichia ewingii/canis Negative (Negative); Ehrlichia muris eauclairensis Negative (Negative)
== END 2024-03-24 15:34 | disposition home or self-care (01) | DRG 683 ==
LOC: ER 03-23 02:28 → MS 03-23 20:23
PROVIDERS: Physician Assistant; Admitting Provider Family Medicine; Emergency Provider Student in an Organized Health Care Education/Training Program; PCP Family Medicine; Visit Provider Family Medicine
DX: N17.9 Acute kidney failure, unspecified (principal); K59.2 Neurogenic bowel, not elsewhere classified; E86.0 Dehydration; I95.1 Orthostatic hypotension; G35 Multiple sclerosis; I10 Essential (primary) hypertension; N31.8 Other neuromuscular dysfunction of bladder; R29.6 Repeated falls; M81.0 Age-related osteoporosis without current pathological fracture; M21.372 Foot drop, left foot; R25.2 Cramp and spasm; N39.41 Urge incontinence; R41.3 Other amnesia; F32.A Depression, unspecified; K21.9 Gastro-esophageal reflux disease without esophagitis; D64.9 Anemia, unspecified; M48.061 Spinal stenosis, lumbar region without neurogenic claudication; M54.16 Radiculopathy, lumbar region; H53.453 Other localized visual field defect, bilateral
CPT/HCPCS: 00123; 36415; 70496; 70498; 70553; 80048; 80053; 85652; 87798; 93005; 96360; 97162; 99285; J1650; 81003; 83735; 84443; 84484; 85025; 86140; 86618; 93010; 99222; 99238; J3490

== ENCOUNTER → 2024-03-26 14:42 | Outpatient (BNVA) | payer MEDICARE, SELFPAY | PROVIDERS: PCP Family Medicine; Visit Provider Psychiatry & Neurology Neurology | DX: N31.9 Neuromuscular dysfunction of bladder, unspecified (principal); R53.83 Other fatigue; R41.3 Other amnesia; R25.2 Cramp and spasm; K59.00 Constipation, unspecified; K59.2 Neurogenic bowel, not elsewhere classified; M21.41 Flat foot [pes planus] (acquired), right foot; G35 Multiple sclerosis; R29.898 Other symptoms and signs involving the musculoskeletal system; R26.89 Other abnormalities of gait and mobility; M48.061 Spinal stenosis, lumbar region without neurogenic claudication; M54.16 Radiculopathy, lumbar region | CPT/HCPCS: 99214 ==

== ENCOUNTER 2024-04-03 05:14 | Outpatient (CLI) | payer MEDICARE, SELFPAY ==
[2024-04-03 12:19] LABS: Anion Gap 3.9 mmol/L (3-11); BUN 15 mg/dL (7-18); CO2 29.1 mmol/L (21.0-32.0); CREATININE 0.7 mg/dL (0.55-1.02); Calcium 8.6 mg/dL (8.5-10.1); Chloride 102 mmol/L (98-107); Estimated GFR 100.81 (mL/min/1.73m2); Glucose 129 mg/dL (74-106); Potassium 4.2 mmol/L (3.5-5.1); Sodium 135 mmol/L (136-145)
== END 2024-04-03 05:15 | disposition home or self-care (01) ==
PROVIDERS: PCP Family Medicine; Visit Provider Internal Medicine
DX: E86.0 Dehydration (principal); N28.9 Disorder of kidney and ureter, unspecified; Z51.81 Encounter for therapeutic drug level monitoring
CPT/HCPCS: 36415; 80048

== ENCOUNTER 2024-05-29 02:21 | Outpatient (CLI) | payer MEDICARE, SELFPAY ==
[2024-05-29 10:54] LABS: BUN 17 mg/dL (7-18); CREATININE 0.8 mg/dL (0.55-1.02); Estimated GFR 85.35 (mL/min/1.73m2)
== END 2024-05-29 02:22 | disposition home or self-care (01) ==
LOC: LBO 02:22
PROVIDERS: PCP Family Medicine; Visit Provider Nurse Practitioner Gerontology
DX: N39.41 Urge incontinence (principal); N31.9 Neuromuscular dysfunction of bladder, unspecified
CPT/HCPCS: 36415; 84520; 82565

== ENCOUNTER → 2024-06-05 10:22 | Outpatient (BNVA) | payer MEDICARE, SELFPAY | PROVIDERS: PCP Family Medicine; Visit Provider Nurse Practitioner Gerontology | DX: R35.1 Nocturia (principal); N39.41 Urge incontinence; N31.9 Neuromuscular dysfunction of bladder, unspecified | CPT/HCPCS: 51798; 99213 ==

== ENCOUNTER 2024-06-26 04:52 | Outpatient (CLI) | payer MEDICARE, SELFPAY ==
[2024-06-26 18:17] LABS: Anion Gap 4.9 mmol/L (3-11); BUN 14 mg/dL (7-18); CO2 33.1 mmol/L (21.0-32.0); CREATININE 0.7 mg/dL (0.55-1.02); Calcium 9.4 mg/dL (8.5-10.1); Chloride 103 mmol/L (98-107); Estimated GFR 100.19 (mL/min/1.73m2); Ferritin 84 ng/mL (8-252); Glucose 88 mg/dL (74-106); Potassium 4.1 mmol/L (3.5-5.1); Sodium 141 mmol/L (136-145); Vitamin D 25 Total 77.1 ng/mL (30-100)
[2024-06-26 18:42] LABS: Iron 64 ug/dL (50-170)
== END 2024-06-26 04:53 | disposition home or self-care (01) ==
LOC: LBO 04:52
PROVIDERS: PCP Family Medicine; Visit Provider Family Medicine
DX: Z51.81 Encounter for therapeutic drug level monitoring (principal); E63.9 Nutritional deficiency, unspecified; T73.0XXA Starvation, initial encounter
CPT/HCPCS: 36415; 80048; 82306; 82728; 83540

== ENCOUNTER → 2024-09-24 11:33 | Outpatient (BNVA) | payer MEDICARE, SELFPAY | PROVIDERS: PCP Family Medicine; Visit Provider Psychiatry & Neurology Neurology | DX: N31.9 Neuromuscular dysfunction of bladder, unspecified (principal); R53.83 Other fatigue; R41.3 Other amnesia; R25.2 Cramp and spasm; K59.00 Constipation, unspecified; K59.2 Neurogenic bowel, not elsewhere classified; G35 Multiple sclerosis | CPT/HCPCS: 99214 ==

== ENCOUNTER 2024-11-24 02:22 | Outpatient (CLI) | payer MEDICARE, SELFPAY ==
--- NOTE | 2024-11-24 06:45 | DI.US_ITS ---
Exam(s) US RENAL EXAM: US RENAL CLINICAL HISTORY: monitoring for hydro,neurogenic bladder,urge incontinence,n31.9,n39.41. TECHNIQUE: Malhotra scale, color and spectral Doppler were used. COMPARISON: US US RENAL from 10/24/2023 FINDINGS: Right kidney: 9.9cm Echogenicity: Normal Hydronephrosis: No Cyst or mass: No Nephrolithiasis: No Left kidney: 9.9cm Echogenicity: Normal Hydronephrosis: No Cyst or mass: No Nephrolithiasis: No Bladder:Normal. Both ureteral jets were visualized. Prevoid vol:114 cc Postvoid vol: 116 cc. Patient on able to void IMPRESSION: Negative renal ultrasound. DATA REPOSITORY:
== END 2024-11-24 02:42 ==
LOC: DI 02:22
PROVIDERS: PCP Family Medicine; Visit Provider Nurse Practitioner Gerontology
DX: N31.8 Other neuromuscular dysfunction of bladder (principal)
CPT/HCPCS: 76770

== ENCOUNTER 2024-11-26 03:14 | Outpatient (CLI) | payer MEDICARE, SELFPAY ==
[2024-11-26 10:17] LABS: BUN 12 mg/dL (7-18); CREATININE 0.7 mg/dL (0.55-1.02); Estimated GFR 100.19 (mL/min/1.73m2)
== END 2024-11-26 03:15 | disposition home or self-care (01) ==
LOC: LBO 03:14
PROVIDERS: PCP Family Medicine; Visit Provider Nurse Practitioner Gerontology
DX: N31.9 Neuromuscular dysfunction of bladder, unspecified (principal); N39.41 Urge incontinence
CPT/HCPCS: 36415; 84520; 82565

== ENCOUNTER → 2024-12-03 10:22 | Outpatient (BNVA) | payer MEDICARE, SELFPAY | PROVIDERS: PCP Family Medicine; Referring Provider Family Medicine; Visit Provider Nurse Practitioner Gerontology | DX: R35.1 Nocturia (principal); N39.41 Urge incontinence; N31.9 Neuromuscular dysfunction of bladder, unspecified | CPT/HCPCS: 99213 ==

== ENCOUNTER 2025-01-29 01:37 | Outpatient (CLI) | payer MEDICARE, SELFPAY ==
[2025-01-29 11:57] LABS: Abs Immature Grans 0.02 10^3/uL (0.0-0.06); Absolute Basophil Count 0.06 10^3/uL (0.0-0.2); Absolute Eosinophil Count 0.14 10^3/uL (0.0-0.7); Absolute Lymphocyte Count 2.53 10^3/uL (1.2-3.4); Absolute Monocyte Count 0.61 10^3/uL (0.1-0.8); Absolute Neutrophil Count 4.03 10^3/uL (1.2-6.7); Basophils % 0.8 %; Eosinophils % 1.9 %; HCT 37.8 % (36.0-46.0); HGB 12.3 g/dL (11.2-15.7); Immature Grans % 0.3 %; Lymphocytes % 34.2 %; MCH 32.1 pg (27.0-33.0); MCHC 32.5 % (32.0-36.0); MCV 99 fL (80-95); MPV 8.8 fL (8.0-11.0); Monocytes % 8.3 %; Neutrophils % 54.5 %; Platelet Count 316 10^3/uL (130-400); RBC 3.83 10^6/uL (3.93-5.22); RDW 13.6 % (11.7-14.6); RDW-SD 49.7 fL; WBC 7.39 10^3/uL (4.4-10.8)
[2025-01-29 12:46] LABS: ALT 26 U/L (14-59); AST 21 U/L (15-37); Albumin 4.1 g/dL (3.4-5.0); Alkaline Phosphatase 107 U/L (46-116); Anion Gap 5.2 mmol/L (3-11); BUN 21 mg/dL (7-18); Bilirubin, Total 0.3 mg/dL (0.2-1.0); CO2 32.8 mmol/L (21.0-32.0); CREATININE 0.7 mg/dL (0.55-1.02); Calcium 9.3 mg/dL (8.5-10.1); Chloride 103 mmol/L (98-107); Estimated GFR 100.19 (mL/min/1.73m2); Glucose 85 mg/dL (74-106); Potassium 4.8 mmol/L (3.5-5.1); Sodium 141 mmol/L (136-145); TSH (W/Ref FT4) 1.19 uIU/mL (0.36-3.74); Total Protein 6.6 g/dL (6.4-8.2)
== END 2025-01-29 01:38 | disposition home or self-care (01) ==
PROVIDERS: PCP Family Medicine; Visit Provider Family Medicine
DX: Z00.00 Encounter for general adult medical examination without abnormal findings (principal); L65.9 Nonscarring hair loss, unspecified; Z51.81 Encounter for therapeutic drug level monitoring; E03.9 Hypothyroidism, unspecified; F33.1 Major depressive disorder, recurrent, moderate
CPT/HCPCS: 36415; 80053; 84443; 85025

== ENCOUNTER 2025-02-06 00:49 | Outpatient (CLI) | payer MEDICARE, SELFPAY ==
--- NOTE | 2025-02-06 07:15 | DI.MAMMO_ITS ---
Exam(s) MAMMO SCREENING EXAM: MAMMO SCREENING CLINICAL HISTORY: screening,z12.39. TECHNIQUE: Bilateral full field digital CC and MLO mammographic images were obtained with 3D tomosyn thesis and utilizing computer aided detection (CAD). COMPARISON: Prior mammograms were reviewed. FINDINGS: There has been no significant change in the appearance and distribution of the fibroglandular tissue. There are no new spiculated masses nor malignant appearing microcalcification groups. There is no significant architectural distortion nor skin thickening-retraction. IMPRESSION: No radiographic evidence of malignancy. BI-RADS Category 1 - Negative Breast Density - Category C - Heterogeneously dense Breast density Category C or D implies that the patient has dense breast tissue. Dense breast tissue can make it harder to find cancer on a mammogram. Dense breast tissue is also associated with an incr eased risk of breast cancer. This information about the result of the mammogram report was provided to the patient to raise their awareness. Use this report when you speak with the patient about their risks for breast cancer, which includes their family history. At that time, you may recommend additional screening tests (Ultrasoun d or MRI) as these tests may add significant information. A negative radiographic report should not delay biopsy if a dominant or clinically suspicious mass is present. Up to ten percent of cancers are not identified on mammography. A negative report may reinforce clinical impression. Adenosis and dense breasts may obscure an underlying neoplasm. False positive reports average 6 to 10%. Patient will receive a letter notifying them of these results.
== END 2025-02-06 01:09 ==
LOC: DI 00:49
PROVIDERS: PCP Family Medicine; Visit Provider Family Medicine
DX: Z12.31 Encounter for screening mammogram for malignant neoplasm of breast (principal); F33.1 Major depressive disorder, recurrent, moderate; R92.333 Mammographic heterogeneous density, bilateral breasts
CPT/HCPCS: 77063; 77067

== ENCOUNTER 2025-02-18 12:23 | Outpatient (REF) | payer MEDICARE, SELFPAY ==
--- NOTE | 2025-02-18 11:00 | PAPFT_PTH ---
PATIENT: Mina Coker LOC: [facility] U#:[id number] AGE/SX: 59/F ROOM: RE02/18/[address]: Elizabeth Nunn : 1965 BED: DIS: 02/18/2025 SPEC #: [id number] RECD: 02/18/25 12:51 STATUS: ALFIE REWilda #: [id number] CINDY: 02/18/25 11:[address]: Elizabeth Nunn DEPT: [facility] Cytology RECD BY: Malina Badillo Tissues: 1 - CX/ENDOCX FOR PAP SMEARS Procedures: PAP THIN PREP/UVM Screening HPV DNA PROBE Comments: [id number] (HPV 16 & 18/45)
== END 2025-02-18 12:24 | disposition home or self-care (01) ==
LOC: LBN 12:23
PROVIDERS: PCP Family Medicine; Visit Provider Family Medicine
DX: Z12.4 Encounter for screening for malignant neoplasm of cervix (principal)
CPT/HCPCS: 88142; 87624

== ENCOUNTER → 2025-04-07 11:33 | Outpatient (BNVA) | payer MEDICARE, SELFPAY | PROVIDERS: PCP Family Medicine; Referring Provider Family Medicine; Visit Provider Psychiatry & Neurology Neurology | DX: G35 Multiple sclerosis (principal); N31.9 Neuromuscular dysfunction of bladder, unspecified; R53.83 Other fatigue; R41.3 Other amnesia; R25.2 Cramp and spasm; M54.50 Low back pain, unspecified; K59.00 Constipation, unspecified; K59.2 Neurogenic bowel, not elsewhere classified; M48.061 Spinal stenosis, lumbar region without neurogenic claudication; M54.16 Radiculopathy, lumbar region | CPT/HCPCS: 99215 ==

== ENCOUNTER 2025-05-29 01:04 | Outpatient (CLI) | payer MEDICARE, SELFPAY ==
[2025-05-29 15:04] LABS: BUN 23 mg/dL (7-18); Estimated GFR 99.57 (mL/min/1.73m2)
== END 2025-05-29 01:05 | disposition home or self-care (01) ==
PROVIDERS: PCP Family Medicine; Visit Provider Nurse Practitioner Gerontology
DX: N31.9 Neuromuscular dysfunction of bladder, unspecified (principal); N39.41 Urge incontinence
CPT/HCPCS: 36415; 84520; 82565

== ENCOUNTER → 2025-06-03 11:02 | Outpatient (BNVA) | payer MEDICARE, SELFPAY | PROVIDERS: PCP Family Medicine; Referring Provider Family Medicine; Visit Provider Nurse Practitioner Gerontology | DX: N31.9 Neuromuscular dysfunction of bladder, unspecified (principal); N39.41 Urge incontinence; R35.1 Nocturia; R39.9 Unspecified symptoms and signs involving the genitourinary system; G35 Multiple sclerosis | CPT/HCPCS: 99214; 51798 ==

== ENCOUNTER → 2025-09-28 10:58 | Outpatient (BNVA) | payer MEDICARE, SELFPAY | PROVIDERS: PCP Family Medicine; Referring Provider Family Medicine; Visit Provider Psychiatry & Neurology Neurology | DX: G35.D Multiple sclerosis, unspecified (principal); N31.9 Neuromuscular dysfunction of bladder, unspecified; R53.83 Other fatigue; R41.3 Other amnesia; R25.2 Cramp and spasm; M54.50 Low back pain, unspecified; K59.00 Constipation, unspecified; K59.2 Neurogenic bowel, not elsewhere classified; M48.061 Spinal stenosis, lumbar region without neurogenic claudication; M54.16 Radiculopathy, lumbar region | CPT/HCPCS: 99214 ==